=== PATIENT | female | born 1940 | race Caucasian/White ===

== ENCOUNTER 2019-08-06 03:05 | Emergency (ER) | payer MEDICARE, SELFPAY ==
[2019-08-06 03:10] VITALS: BP 149/87; PULSE 80; RESP 18; TEMP 36.3; O2SAT 100
--- NOTE | 2019-08-06 03:23 | ED.SKABFB ---
HPI - Skin/Abscess/Foreign Bdy General Chief complaint: Skin/Abscess/Foreign Body Stated complaint: Poison elena Time Seen by Provider: 08/06/19 03:13 Source: RN notes reviewed History of Present Illness HPI narrative: Patient presents emergency department from home for rash. Patient states that Thursday she went outside and was picking weeds. She said that evening she began to notice a rash that started just above her T-shirt line going up her neck into her bilateral cheeks as well as on her right arm states the rash is pruritic she denies any swelling of the lips or tongue she denies any rash underneath the area of her shirt states she has been using calamine lotion with minimal relief denies any other symptoms Related Data Home Medications Medication Instructions Recorded Confirmed citalopram 20 mg tablet 20 mg PO DAILY 01/14/19 Lactobacillus acidophilus 10 cell PO .Daily cap 02/22/19 billion cell capsule albuterol sulfate 90 mcg/actuation See Rx Instructions .ROUTE .COMPLEX 02/22/19 aerosol inhaler beclomethasone dipropionate 80 See Rx Instructions .ROUTE .COMPLEX 02/22/19 mcg/actuation aerosol inhaler calcium carbonate-vitamin D3 600 1 tablet PO BID 02/22/19 mg (1,500 mg)-800 unit tablet calcium polycarbophil 625 mg tablet 1,250 mg PO BID 02/22/19 citalopram 20 mg tablet 20 mg PO DAILY 02/22/19 fluticasone propionate 50 1 - 2 spray NASAL DAILY PRN ml 02/22/19 mcg/actuation nasal spray,suspension multivit with 1 tablet PO DAILY 02/22/19 bmzirzhk-xqbj-AQ-lutein 8 mg iron-400 mcg-300 mcg tablet Allergies Allergy/AdvReac Type Severity Reaction Status Date / Time propoxyphene [From Darvon] Allergy Severe Swelling Verified 08/06/19 03:14 of Lip/Tongue/Throat Review of Systems Review of Systems: Narrative: Gen.: Denies fevers or chills Eyes: Denies eye pain or visual change ENT: Denies congestion denies swelling of lips or tongue Respiratory: Denies shortness of breath or cough CV: Denies chest pain GI: Denies abdominal pain Musculoskeletal: Denies back pain or joint Neuro: Denies headache Skin: See HPI Except as documented, all other systems reviewed and negative [facility] Past Medical History Medical History (Updated 08/06/19 @ 03:26 by Shaq Santos DO) Asthma Social History Social History Smoking status: Never smoker Smoking end date: 03/09/87 Alcohol intake: never Gender identity (if verbalized by the patient): Female Exam Narrative: Exam Narrative: APPEARANCE: No acute distress, nontoxic, resting in bed EYES: EOMI HEENT: Normocephalic, atraumatic, OMM no swelling of the lips or tongue RESPIRATORY: No respiratory distress MUSCULOSKELETAl: Moves all extremities. No clubbing, cyanosis or edema. NEURO: Awake and alert. Following commands, speech normal, no focal deficits SKIN:: Warm, dry. Erythematous rash with some small vesicular lesions over the bilateral cheeks and neck down to the shirt line no rash under the shirt line and small area on the right wrist consistent with poison elena PSYCHIATRIC: Normal affect/mood, Course Course Emergency Course: Discussed with patient results of workup and diagnosis. Discussed need for follow-up with primary care, proper use of medication, and reasons to return to the emergency department. Patient understands and agrees to current treatment plan Vital Signs Vital signs: Vital Signs Temperature 97.4 F L 08/06/19 03:10 Pulse Rate 80 08/06/19 03:10 Respiratory Rate 18 08/06/19 03:10 Blood Pressure 149/87 H 08/06/19 03:10 Pulse Oximetry 100 08/06/19 03:10 Temperature 97.4 F L 08/06/19 03:10 Pulse Rate 80 08/06/19 03:10 Respiratory Rate 18 08/06/19 03:10 Blood Pressure 149/87 H 08/06/19 03:10 Pulse Oximetry 100 08/06/19 03:10 Discharge Plan Discharge Clinical Impression: Contact dermatitis due to poison elena Kobi
[2019-08-06] MEDS: predniSONE 20 MG TABLET 60 MG PO (03:28)
[2019-08-06 03:30] VITALS: BP 137/79; PULSE 80; RESP 19; TEMP 36.8; O2SAT 100
== END 2019-08-06 03:36 | disposition home or self-care (01) ==
LOC: ANHED 03:31
PROVIDERS: Emergency Provider Emergency Medicine; PCP Emergency Medicine
DX: L23.7 Allergic contact dermatitis due to plants, except food (principal); J45.909 Unspecified asthma, uncomplicated
CPT/HCPCS: 99283; J7512

== ENCOUNTER 2019-08-08 10:16 | Emergency (ER) | payer MEDICARE, SELFPAY ==
[2019-08-08 10:24] VITALS: BP 132/80; PULSE 93; RESP 6; TEMP 36.9; O2SAT 96
[2019-08-08] MEDS: FAMOTIDINE 20 MG/2 ML VIAL IV PUSH (11:31)
[2019-08-08] MEDS: SODIUM CHLORIDE 0.9% IV 1,000 ML 999 ML IV CONT (11:31)
--- NOTE | 2019-08-08 13:10 | ED.ALLEREA ---
HPI - Allergic Reaction General Chief complaint: Allergic Reaction Stated complaint: Poison Marii Time Seen by Provider: 08/08/19 11:08 Source: patient Mode of arrival: ambulatory Limitations: no limitations History of Present Illness HPI narrative: Patient is a 79-year-old female who presents with rash to the face extremities and neck after working in the yard consistent with Camille dermatitis patient was seen in the emergency department was given a Medrol dose pack and sent home and notes that she has had no improvement patient notes rash to the face neck and arms as noted with burning and itching. Denies similar occurrence in the past fever chills or other complaints and presents in no distress per private vehicle Related Data Home Medications Medication Instructions Recorded Confirmed citalopram 20 mg tablet 20 mg PO DAILY 01/14/19 Lactobacillus acidophilus 10 cell PO .Daily cap 02/22/19 billion cell capsule albuterol sulfate 90 mcg/actuation See Rx Instructions .ROUTE .COMPLEX 02/22/19 aerosol inhaler beclomethasone dipropionate 80 See Rx Instructions .ROUTE .COMPLEX 02/22/19 mcg/actuation aerosol inhaler calcium carbonate-vitamin D3 600 1 tablet PO BID 02/22/19 mg (1,500 mg)-800 unit tablet calcium polycarbophil 625 mg tablet 1,250 mg PO BID 02/22/19 citalopram 20 mg tablet 20 mg PO DAILY 02/22/19 fluticasone propionate 50 1 - 2 spray NASAL DAILY PRN ml 02/22/19 mcg/actuation nasal spray,suspension multivit with 1 tablet PO DAILY 02/22/19 dlwpiwwn-jtkk-NG-lutein 8 mg iron-400 mcg-300 mcg tablet Allergies Allergy/AdvReac Type Severity Reaction Status Date / Time propoxyphene [From Darvon] Allergy Severe Swelling Verified 08/06/19 03:14 of Lip/Tongue/Throat Review of Systems Review of Systems: All systems reviewed & are unremarkable except as noted in HPI and below PMFSH Past Medical History Medical History Asthma Family History Family History Father Family history of transient ischemic attacks Patient's father is Cerebrovascular accident, Onset Age: 77 Sibling Family history of chronic obstructive pulmonary disease Family history of lung cancer Patient's brother is Mother Family history of transient ischemic attacks, Onset Age: 91 Other Family history of schizophrenia Social History Social History Smoking status: Never smoker Smoking end date: 03/09/87 Alcohol intake: never Gender identity (if verbalized by the patient): Female Exam Narrative: Exam Narrative: GENERAL: Well-appearing, well-nourished, and in no acute distress. HEAD: Normocephalic, atraumatic. EYES: PERRLA and EOMI. ENT: Nares clear, no rhinorrhea or epistaxis. Mucous membranes moist. NECK: Supple. No adenopathy or masses. CHEST: Clear to auscultation. No respiratory distress. No wheezes rales or rhonchi HEART: Regular rate and rhythm. No murmur heard. EXTREMITIES: Normal range of motion. No edema. SKIN: Warm, dry, patient with rash of the face without is splotchy erythematous some of which are weeping of the face neck and extremities consistent with Rhus dermatitis NEURO: No focal deficits. Alert and oriented x3. PSYCH: Normal mood and affect. Course Course Emergency Course: Patient in the room aware of case findings treatment plan and diagnosis Vital Signs Vital signs: Vital Signs Temperature 98.4 F 08/08/19 10:24 Pulse Rate 93 08/08/19 10:24 Respiratory Rate 6 L 08/08/19 10:24 Blood Pressure 132/80 08/08/19 10:24 Pulse Oximetry 96 08/08/19 10:24 Temperature 98.4 F 08/08/19 10:24 Pulse Rate 93 08/08/19 10:24 Respiratory Rate 6 L 08/08/19 10:24 Blood Pressure 132/80 08/08/19 10:24 Pulse Oximetry 96 08/08/19 10
[2019-08-08 13:30] VITALS: BP 100/80; PULSE 72; RESP 16; O2SAT 98
== END 2019-08-08 13:35 | disposition home or self-care (01) ==
PROVIDERS: Emergency Provider Emergency Medicine; PCP Emergency Medicine
DX: L23.7 Allergic contact dermatitis due to plants, except food (principal); J45.909 Unspecified asthma, uncomplicated
CPT/HCPCS: 96361; 96374; 96375; 99284; J1100; J1200; J7030

== ENCOUNTER 2019-08-15 23:58 | Emergency (ER) | payer MEDICARE, SELFPAY ==
[2019-08-16 00:04] VITALS: BP 147/73; PULSE 92; RESP 18; TEMP 36.6; O2SAT 99
--- NOTE | 2019-08-16 00:50 | ED.SKABFB ---
HPI - Skin/Abscess/Foreign Bdy General Chief complaint: Skin/Abscess/Foreign Body Stated complaint: POISON CHANO Time Seen by Provider: 08/16/19 00:21 History of Present Illness HPI narrative: Patient is an 79-year-old female who presents the ER with concerns of rash. Patient reports 2 weeks ago she is exposed poison chano and has been having itchy red rash over since. Involves her face, bilateral arms, left abdominal/flank region. Pruritic and keeps her up at night. She is on her third dose of prednisone that was prescribed by an banking officer just a couple days ago. She has been trying calamine lotion as well as other lotions without relief of discomfort. She takes Claritin daily. Related Data Home Medications Medication Instructions Recorded Confirmed citalopram 20 mg tablet 20 mg PO DAILY 01/14/19 Lactobacillus acidophilus 10 cell PO .Daily cap 02/22/19 billion cell capsule albuterol sulfate 90 mcg/actuation See Rx Instructions .ROUTE .COMPLEX 02/22/19 aerosol inhaler beclomethasone dipropionate 80 See Rx Instructions .ROUTE .COMPLEX 02/22/19 mcg/actuation aerosol inhaler calcium carbonate-vitamin D3 600 1 tablet PO BID 02/22/19 mg (1,500 mg)-800 unit tablet calcium polycarbophil 625 mg tablet 1,250 mg PO BID 02/22/19 citalopram 20 mg tablet 20 mg PO DAILY 02/22/19 fluticasone propionate 50 1 - 2 spray NASAL DAILY PRN ml 02/22/19 mcg/actuation nasal spray,suspension multivit with 1 tablet PO DAILY 02/22/19 xhsvxqpz-cyfo-LV-lutein 8 mg iron-400 mcg-300 mcg tablet Allergies Allergy/AdvReac Type Severity Reaction Status Date / Time propoxyphene [From Darvon] Allergy Severe Swelling Verified 08/15/19 23:59 of Lip/Tongue/Throat Review of Systems Review of Systems: All systems reviewed & are unremarkable except as noted in HPI and below Constitutional: Constitutional: Denies chills, Denies fever(s) and Denies weakness ENT: Denies nasal congestion and Denies sore throat Integumentary/Breasts: Skin/Breast: Reports pruritus, Reports erythema and Reports rash PMFSH Past Medical History Medical History (Updated 08/16/19 @ 00:55 by Rick Salmon MD) Asthma Surgical History Surgical History (Updated 08/16/19 @ 00:52 by Rcik Salmon MD) History of cholecystectomy History of tubal ligation Social History Social History Smoking status: Never smoker Smoking end date: 03/09/87 Alcohol intake: never Gender identity (if verbalized by the patient): Female Exam Narrative: Exam Narrative: GENERAL: Well-appearing, well-nourished, and in no acute distress. HEAD: Normocephalic, atraumatic. CHEST: Clear to auscultation. No respiratory distress. HEART: Regular rate and rhythm. Normal peripheral pulses. EXTREMITIES: Normal range of motion. No edema. SKIN: Warm, dry. Erythematous/blanching rash to face, bilateral forearms, LLQ extending towards back. No pustules/vesicles. Not c/w shingles. NEURO: Alert and oriented x3. Course Course Emergency Course: will try atarax at home for itching. Vital Signs Vital signs: Vital Signs Temperature 97.8 F 08/16/19 00:04 Pulse Rate 92 08/16/19 00:04 Respiratory Rate 18 08/16/19 00:04 Blood Pressure 147/73 H 08/16/19 00:04 Pulse Oximetry 99 08/16/19 00:04 Temperature 97.8 F 08/16/19 00:04 Pulse Rate 92 08/16/19 00:04 Respiratory Rate 18 08/16/19 00:04 Blood Pressure 147/73 H 08/16/19 00:04 Pulse Oximetry 99 08/16/19 00:04 Discharge Plan Discharge Clinical Impression: Poison chano dermatitis Patient Disposition: Home, Self-Care Condition: Stable Instructions: Poison Chano (ED) Additional Instructions: Return to the ER if you have chest pain or shortness of breath, you cannot keep down food or water, you have fever over 100.4 ?F, you have additional concerns. Prescriptions: New hydroxyzine HCl 25 mg tablet
[2019-08-16] MEDS: hydrOXYzine HCL 25 MG TABLET PO (01:00)
== END 2019-08-16 01:08 | disposition home or self-care (01) ==
PROVIDERS: Emergency Provider Emergency Medicine; PCP Emergency Medicine
DX: L23.7 Allergic contact dermatitis due to plants, except food (principal); J45.909 Unspecified asthma, uncomplicated
CPT/HCPCS: 99283; A4565; A9270

== ENCOUNTER 2019-08-30 07:28 | Outpatient (CLI) | payer MEDICARE, SELFPAY ==
[2019-08-30 08:12] LABS: Alanine Aminotransferase 24 U/L (4-35); Albumin Level 3.7 g/dL (3.5-5.1); Alkaline Phosphatase 76 U/L (38-126); Aspartate Amino Transferase 28 U/L (14-36); Bilirubin,Total 0.6 mg/dL (0.2-1.3); Blood Urea Nitrogen 26 mg/dL (7-17); Calcium 9.5 mg/dL (8.4-10.2); Carbon Dioxide 30 mmol/L (22-30); Chloride 102 mmol/L (98-107); Estimated Glomerular Filt Rate 60; Glucose 91 mg/dL (65-105); Potassium 4.3 mmol/L (3.4-5.0); Sodium 137 mmol/L (137-145)
== END 2019-08-30 07:29 | disposition home or self-care (01) ==
PROVIDERS: PCP Emergency Medicine; Visit Provider Emergency Medicine
DX: E78.5 Hyperlipidemia, unspecified (principal)
CPT/HCPCS: 36415; 80053

== ENCOUNTER 2019-11-24 08:00 | Outpatient (RCR) | payer MEDICARE, SELFPAY ==
--- NOTE | 2019-10-04 10:57 | PTOPEVAL ---
INITIAL PHYSICAL THERAPY EVALUATION and PLAN OF CARE Thank you for referring Lisa Tovar to [facility]. She will be seen in PT 2x/wk x 4 wks. Please review, sign, date and return this plan of care ANA. I agree with and certify that the following plan of care is medically necessary. Referring Physician Date Admitting Provider: Attending Provider: Evangelista Carlson MD Referring Provider: *PT Outpatient Evaluation Start: 10/04/19 09:40 Freq: Status: Active Protocol: Document 10/04/19 09:35 BISI (Rec: 10/04/19 10:57 BISI [id number]) Therapy Assessment Status Assessment Status Assessment Status Evaluation Outpatient Past Medical History Past Medical History Source of Past Medical History Patient,Recalled from Previous Visit, Confirmed with Patient /Family Neurological History Hx Neurological Disorders No Significant History Cardiovascular History Hx Hypertension Yes Respiratory History Hx Asthma Yes Gastrointestinal History Hx Cholecystectomy Yes Hx Gastroesophageal Reflux Disease Yes Genitourinary History Hx Genitourinary Disorders No Significant History Musculoskeletal History Hx Back Pain Yes Endocrine History Hx Endocrine Disorders No Significant History Reproductive History Hx Post Menopausal Yes Hx Tubal Ligation Yes Psychosocial History Hx Depression Yes Evaluation Information Problem Diagnosis R leg pain, L leg pain Onset 1-2 month - more severe pain Additional Evaluation Detail Pt reports only having R thigh pain Was seen in PT ~ 1 yr for about the same thing - was helpful Subjective Information She thinks that she lifted Query Text:As Reported By Patient/ something heavy which caused Family the discomfort. Did have a shooting pain R side of back. Does okay with sitting, but some limitation with standing and more so with walking. Does have a stationary bike and treadmill at home. Morning - increased difficulty getting R leg out of bed, then has to hold onto R thigh to walk over and get the light . Pain is sporatic as the day goes on. Doesn't notice any change with bath - unable to
--- NOTE | 2019-10-27 12:44 | PTOPEVAL ---
PHYSICAL THERAPY RE-EVALUATION and UPDATED PLAN OF CARE Thank you for referring Lisa Tovar to [facility].? Lisa has met goals set in regards to back/pelvis/SIJ dysfunction but she continues to have R thigh discomfort and soft tissue tension. She will continue to be seen for skilled PT 2x/week for 4 weeks. Please review, sign, date and return this plan of care ANA. I agree with and certify that the following plan of care is medically necessary. Referring Physician Date Admitting Provider: Attending Provider: Evangelista Carlson MD Referring Provider: *PT Outpatient Evaluation Start: 10/04/19 09:40 Freq: Status: Active Protocol: Document 10/27/19 10:50 BISI (Rec: 10/27/19 12:01 BISI [id number]) Therapy Assessment Status Assessment Status Assessment Status Re-evaluation Evaluation Information Problem Subjective Information Lisa reports that every Query Text:As Reported By Patient/ morning she has severe R thigh Family pain which will last for about 20 minutes. It goes away once she starts moving around - getting dressed, making her bed. Needs to get out of bed a certain way otherwise increase in pain. 50% improvement with standing ability Pain Assessment Timing of Pain Assessment Timing of Pain Assessment Assessment Pain Scale Pain Scale Used Numeric (1 - 10) Self Report Pain Assessment Right Anterior Thigh(s) Reported Pain Level 2 Pain Description Sharp,Soreness Lowest Pain Intensity 0 Greatest Pain Intensity 10 Pain Score Pain Score 2: Self Report Cervical and Lumbar ROM Lumbar ROM Lumbar Flexion (0-90) 35 Query Text:Active in Degrees Lumbar Extension (0-40) 15 Query Text:Active in Degrees Lumbar Lateral Flexion Right (0-40) 10 Query Text:Active in Degrees Lumbar Lateral Flexion Left (0-40) 10 Query Text:Active in Degrees Lumbar Comments trunk is flexed ~ 10 deg - able to come up to neutral with trunk extension - but the able to go into trunk extension Palpation Assessment Palpation Palpation Pevis/sacrum level in standing - equal SIJ mobility in standing - lumbar spine in flattened - decrease with lumbar curve R thigh - marked increase in
--- NOTE | 2019-11-24 11:41 | PTOPEVAL ---
PHYSICAL THERAPY DISCHARGE SUMMARY Thank you for referring Lisa Tovar to [facility].? Lisa has met goals set in PT and is ready for discharge to [facility]. I am in agreement Lisa's discharge from physical therapy. Referring Physician Date Admitting Provider: Attending Provider: Evangelista Carlson MD Referring Provider: *PT Outpatient Evaluation Start: 10/04/19 09:40 Freq: Status: Active Protocol: Document 11/24/19 08:08 BISI (Rec: 11/24/19 09:03 BISI [id number]) Therapy Assessment Status Assessment Status Assessment Status Discharge Evaluation Information Problem Subjective Information Lisa reports the thigh Query Text:As Reported By Patient/ pain in the morning with Family initial wt bearing isn't always there. If it is present - doesn't last long - when she walks about 10 ft - it goes away. Getting up and down from the tub is better - no difficulty now. Pain Assessment Timing of Pain Assessment Timing of Pain Assessment Assessment Pain Scale Pain Scale Used Numeric (1 - 10) Self Report Pain Assessment Right Anterior Thigh(s) Reported Pain Level 0 Lowest Pain Intensity 0 Greatest Pain Intensity 5 Pain Score Pain Score 0: Self Report Cervical and Lumbar ROM Lumbar ROM Lumbar Flexion (0-90) 35 Query Text:Active in Degrees Lumbar Extension (0-40) 15 Query Text:Active in Degrees Lumbar Lateral Flexion Right (0-40) 15 Query Text:Active in Degrees Lumbar Lateral Flexion Left (0-40) 15 Query Text:Active in Degrees Lumbar Comments improved neutral position of trunk in standing - less trunk flexion Palpation Assessment Palpation Palpation marked decrease in distal thigh soft tissue tension - no discomfort elicited. General Exercise General Exercises Exercise Location core stabilization, LE Exercise Description reviewd HEP sheets - to Query Text:Record Sets, Reps, continue to watch lifting Resistance, and Position techniques. To continue with wall slides - discussed how to modify to decrease back discomfort, clams and hip abduction SLR, and hip flexor stretching. 2x/wk to continue with theraband hip abduction, flexion,
== END 2019-11-24 13:25 | disposition home or self-care (01) ==
LOC: ANHPT 08:00
PROVIDERS: PCP Emergency Medicine; Visit Provider Emergency Medicine
DX: M79.604 Pain in right leg (principal); M79.605 Pain in left leg
CPT/HCPCS: 97014; 97110; 97140; 97161; 97530; G0283

== ENCOUNTER 2020-01-23 12:54 | Outpatient (CLI) | payer MEDICARE, SELFPAY | END 2020-01-23 12:55 | disposition home or self-care (01) | LOC: ANHAUDASC 12:55 | PROVIDERS: PCP Emergency Medicine; Visit Provider Otolaryngology | DX: H91.90 Unspecified hearing loss, unspecified ear (principal) | CPT/HCPCS: 92557; 92567 ==

== ENCOUNTER 2020-03-20 06:55 | Outpatient (CLI) | payer MEDICARE, SELFPAY ==
[2020-03-20 07:38] LABS: Alanine Aminotransferase 20 U/L (4-35); Alkaline Phosphatase 61 U/L (38-126); Anion Gap 3 mmol/L (8-16); Aspartate Amino Transferase 29 U/L (14-36); Bilirubin,Total 0.7 mg/dL (0.2-1.3); Blood Urea Nitrogen 20 mg/dL (7-17); Calcium 9.3 mg/dL (8.4-10.2); Carbon Dioxide 35 mmol/L (22-30); Chloride 99 mmol/L (98-107); Cholesterol 234 mg/dL (0-200); Estimated Glomerular Filt Rate 60; Glucose 96 mg/dL (65-105); HDL Direct 79 mg/dL; Potassium 4.3 mmol/L (3.4-5.0); Sodium 137 mmol/L (137-145); Triglycerides 109 mg/dL (<150)
[2020-03-20 07:49] LABS: LDL Cholesterol Direct 115 mg/dL
== END 2020-03-20 06:56 | disposition home or self-care (01) ==
PROVIDERS: PCP Emergency Medicine; Visit Provider Emergency Medicine
DX: E78.2 Mixed hyperlipidemia (principal)
CPT/HCPCS: 36415; 80053; 80061

== ENCOUNTER 2020-06-19 06:53 | Outpatient (CLI) | payer MEDICARE, SELFPAY ==
[2020-06-19 08:02] LABS: Alanine Aminotransferase 22 U/L (4-35); Albumin Level 4.1 g/dL (3.5-5.1); Alkaline Phosphatase 57 U/L (38-126); Anion Gap 2 mmol/L (8-16); Aspartate Amino Transferase 34 U/L (14-36); Bilirubin,Total 0.9 mg/dL (0.2-1.3); Blood Urea Nitrogen 20 mg/dL (7-17); Calcium 9.4 mg/dL (8.4-10.2); Carbon Dioxide 32 mmol/L (22-30); Chloride 100 mmol/L (98-107); Estimated Glomerular Filt Rate 60; Glucose 89 mg/dL (65-105); Potassium 4.3 mmol/L (3.4-5.0); Sodium 134 mmol/L (137-145)
== END 2020-06-19 06:54 | disposition home or self-care (01) ==
PROVIDERS: PCP Emergency Medicine; Visit Provider Emergency Medicine
DX: I10 Essential (primary) hypertension (principal)
CPT/HCPCS: 36415; 80053

== ENCOUNTER 2020-08-01 09:00 | Outpatient (RCR) | payer MEDICARE, SELFPAY ==
--- NOTE | 2020-07-10 11:18 | PTOPEVAL ---
PHYSICAL THERAPY EVALUATION AND PLAN OF CARE 07-10-20 Thank you for referring Lisa Tovar to [facility], for the diagnosis of gait imbalance. Mrs. Tovar is scheduled to be seen for therapy? 2 x/week for 3 weeks. Please review, sign, date and return this plan of care ANA. I agree with and certify that the following plan of care is medically necessary. Referring Physician Date Attending Provider: Evangelista Carlson MD PT Outpatient Evaluation Document 07/10/20 10:35 TEE (Rec: 07/10/20 11:17 TEE [id number]) Past Medical History Neurological History Hx Other Neurological Disorders Yes: tremors B hands, increase with activity-have referral for neurologist Cardiovascular History Hx Hypercholesterolemia Yes: meds Hx Hypertension Yes: meds Respiratory History Hx Asthma Yes: med and inhaler Gastrointestinal History Hx Cholecystectomy Yes Hx Gastroesophageal Reflux Disease Yes Genitourinary History Hx Genitourinary Disorders No Significant History Musculoskeletal History Hx Back Pain Yes Endocrine History Hx Endocrine Disorders No Significant History HEENT History Hx Other HEENT Disorders Yes: glasses; slight hearing loss- no hearing aide Reproductive History Hx Post Menopausal Yes Hx Tubal Ligation Yes Psychosocial History Hx Anxiety Yes: meds Hx Depression Yes: meds Other History Hx Other Medical Conditions Yes: have had COVID vaccine Evaluation Information Problem Diagnosis gait and balance issues Onset Feb 2020 Subjective Information gradual increase in problems Query Text:As Reported By Patient/ with walking and weakness; no Family falls; not really doing any exercises at home, except riding stationary bike 5-10 mins/day; Prior Level of Function Activity Level (Last 3 Months) Cooking Yes Cleaning No Laundry Yes Shopping Yes Driving Yes Home Setting Home Type House,Multiple Levels Living Situation Alone Support Available 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
--- NOTE | 2020-08-01 09:36 | PTOPEVAL ---
PHYSICAL THERAPY DISCHARGE 08-01-20 Refer to the clinical summary below for her status today, compared to the initial evaluation. Lisa improved in all areas. The goals were partially achieved. Thank you for referring Lisa Tovar to [facility].? Please review, sign, date and return this Discharge ANA. I agree with and certify that the following plan of care is medically necessary. Referring Physician Date Attending Provider: Evangelista Carlson MD Document 08/01/20 08:59 TEE (Rec: 08/01/20 09:35 TEE [id number]) Assessment Status Discharge Subjective Information Lisa reports: saw Query Text:As Reported By Patient/ neurologist and have a new med Family for tremors; doing leg exercises at home, once/day 10 times; getting into bath tub is about the same, getting down into the tub-- have not got a tub rail yet; daughter is working on getting a grab bar for her to stand and shower; only go to basement few times, strenuous and hard to do; Pain Scale Pain Scale Used Numeric (1 - 10) Self Report Pain Assessment Right Thigh(s) Reported Pain Level 0 Pain Description Aching Pain Frequency Chronic,Intermittent Other Pain Description anterior thigh Lowest Pain Intensity 0 Greatest Pain Intensity 8 Other Pain Aggravating Factors when first wake up in the morning Pain Behaviors Anxious Pain Score Pain Score 0: Self Report Interventions Used Interventions Used By Clinicians Education Other Alleviating Interventions walk around when first wake up ; discussed using heating pad over thigh Lower Extremity Muscle Strength Testing General Lower Extremity Strength Gross Lower Extremity Strength functional strength testing: single leg standing R 4/ L 7 seconds standing hip exercises with 1 UE hold x 20 reps Transfer Assessment Floor Transfer Assessment Sit to Floor Transfer Ability Independent Floor to Sit Transfer Ability Independent Cues Needed for Floor Transfer None Floor Transfer Comments use of UE's on mat to do transfer; pt reports she gets on the floor to play with her great grand children; Balance Assessment
== END 2020-08-01 11:01 | disposition home or self-care (01) ==
LOC: ANHPT 09:00
PROVIDERS: PCP Emergency Medicine; Visit Provider Emergency Medicine
DX: R26.89 Other abnormalities of gait and mobility (principal); R25.1 Tremor, unspecified
CPT/HCPCS: 97110; 97161

== ENCOUNTER 2020-10-30 06:53 | Outpatient (CLI) | payer MEDICARE, SELFPAY ==
[2020-10-30 08:50] LABS: Alanine Aminotransferase 16 U/L (4-35); Alkaline Phosphatase 63 U/L (38-126); Anion Gap 5 mmol/L (8-16); Aspartate Amino Transferase 25 U/L (14-36); Bilirubin,Total 0.8 mg/dL (0.2-1.3); Blood Urea Nitrogen 22 mg/dL (7-17); Calcium 9.4 mg/dL (8.4-10.2); Carbon Dioxide 28 mmol/L (22-30); Chloride 101 mmol/L (98-107); Cholesterol 225 mg/dL (0-200); Estimated Glomerular Filt Rate > 60; Glucose 86 mg/dL (65-110); HDL Direct 67 mg/dL; Sodium 134 mmol/L (137-145); Triglycerides 102 mg/dL (<150)
[2020-10-30 09:03] LABS: LDL Cholesterol Direct 105 mg/dL
== END 2020-10-30 06:54 | disposition home or self-care (01) ==
LOC: ANHLAB 06:56
PROVIDERS: PCP Emergency Medicine; Visit Provider Emergency Medicine
DX: I10 Essential (primary) hypertension (principal); E78.2 Mixed hyperlipidemia
CPT/HCPCS: 36415; 80053; 80061

== ENCOUNTER 2021-04-16 06:44 | Outpatient (CLI) | payer MEDICARE, SELFPAY ==
[2021-04-16 08:16] LABS: Alanine Aminotransferase 19 U/L (4-35); Albumin Level 3.9 g/dL (3.5-5.1); Alkaline Phosphatase 94 U/L (38-126); Anion Gap 2 mmol/L (8-16); Aspartate Amino Transferase 28 U/L (14-36); Bilirubin,Total 0.6 mg/dL (0.2-1.3); Blood Urea Nitrogen 22 mg/dL (7-17); Carbon Dioxide 30 mmol/L (22-30); Chloride 102 mmol/L (98-107); Cholesterol 239 mg/dL (0-200); Estimated Glomerular Filt Rate 47; Glucose 92 mg/dL (65-110); HDL Direct 57 mg/dL; Potassium 4.2 mmol/L (3.4-5.0); Sodium 134 mmol/L (137-145); Triglycerides 140 mg/dL (<150)
[2021-04-16 08:27] LABS: LDL Cholesterol Direct 120 mg/dL
== END 2021-04-16 06:45 | disposition home or self-care (01) ==
PROVIDERS: PCP Emergency Medicine; Visit Provider Emergency Medicine
DX: I10 Essential (primary) hypertension (principal); Z13.220 Encounter for screening for lipoid disorders
CPT/HCPCS: 36415; 80053; 80061

== ENCOUNTER 2021-06-09 21:45 | Emergency (ER) | payer MEDICARE, SELFPAY ==
--- NOTE | ~2021-06-09 | CT_ITS ---
EXAMINATION: CT brain wo con DATE: 06/09/2021 22:39 INDICATION: Frontal headache. TECHNIQUE: Computed tomography (CT) of the head was performed without intravenous contrast. The mA wa s adjusted according to patient size. Iterative reconstruction technique was employed. The dose-lengt h product was 605.33 mGy-cm. COMPARISON: None FINDINGS: There is no intracranial hemorrhage, acute infarction, or abnormal intracranial mass lesion . There is a prominent perivascular space in the right basal ganglia. There are scattered areas of lo w attenuation in the cerebral white matter, which is within normal limits for the patient's age. The ventricles are normal in size. There are likely changes of ocular lens replacement surgeries. There i s mild mucosal thickening in the ethmoid sinuses. The mastoid air cells are normal. IMPRESSION: 1. Normal aging brain. Reviewed, dictated and finalized at location A. IMPRESSION: 1. Normal aging brain.
[2021-06-09 22:11] VITALS: PULSE 90; RESP 16; TEMP 37.6; O2SAT 97
--- NOTE | 2021-06-09 22:19 | ED.GENADULT ---
HPI - General Adult General Chief complaint: Headache Stated complaint: Head pain, not a headache. Time Seen by Provider: 06/09/21 21:49 History of Present Illness HPI narrative: Patient is an 81-year-old female who presents ER with frontal headache. Ongoing over the last month. Began earlier in the month when she was reading and leaning forward. She reports she only has a headache when she leans forwards. Its become more intense over the last week. Denies sinus congestion or sore throat or cough. No fevers or chills or sweats. No trauma or fall. No alleviating factors other than just laying her head back. Denies dizziness. No focal weakness or numbness in arm or leg. No change in vision. Related Data Home Medications Medication Instructions Recorded Confirmed citalopram 20 mg tablet 20 mg PO DAILY 01/14/19 Lactobacillus acidophilus 10 cell PO .Daily cap 02/22/19 05/13/21 billion cell capsule albuterol sulfate 90 mcg/actuation See Rx Instructions .ROUTE .COMPLEX 02/22/19 05/13/21 aerosol inhaler beclomethasone dipropionate 80 See Rx Instructions .ROUTE .COMPLEX 02/22/19 05/13/21 mcg/actuation aerosol inhaler calcium carbonate 600 mg-vitamin 1 tablet PO BID 02/22/19 05/13/21 D3 20 mcg (800 unit) tablet calcium polycarbophil 625 mg tablet 1,250 mg PO BID 02/22/19 05/13/21 fluticasone propionate 50 1 - 2 spray NASAL DAILY PRN ml 02/22/19 05/13/21 mcg/actuation nasal spray,suspension multivit with 1 tablet PO DAILY 02/22/19 05/13/21 eswozidj-jszg-CX-lutein 8 mg iron-400 mcg-300 mcg tablet Allergies Allergy/AdvReac Type Severity Reaction Status Date / Time propoxyphene [From Darvon] Allergy Severe Swelling Verified 05/13/21 14:06 of Lip/Tongue/Throat Review of Systems Review of Systems: All systems reviewed & are unremarkable except as noted in HPI and below Constitutional: Constitutional: Denies chills, Denies fever(s) and Denies weakness Eyes: Eyes: Denies change in vision and Denies photophobia ENT: Denies dizziness, Denies nasal congestion and Denies sore throat Cardiovascular: Cardiovascular: Denies chest pain, Denies rapid heart rate and Denies radiating jaw, neck or arm pain Gastrointestinal: Gastrointestinal: Denies abdominal pain, Denies nausea and Denies vomiting Neurologic: Denies syncope, Reports headache(s), Denies focal weakness and Denies numbness PMFSH Past Medical History Medical History Acute left-sided low back pain without sciatica Acute non-recurrent sinusitis Acute pain of left hip Asthma Body mass index [BMI] 25.0-25.9, adult (10/27/16) Diarrhea Fatigue Frequent UTI GERD without esophagitis Memory loss Mild persistent asthma without complication Moderate single current episode of major depressive disorder Presbycusis, bilateral Pure hypercholesterolemia Unsteady gait Surgical History Surgical History History of cholecystectomy History of tubal ligation Family History Family History Father Family history of transient ischemic attacks Patient's father is Cerebrovascular accident, Onset Age: 77 Sibling Family history of chronic obstructive pulmonary disease Family history of lung cancer Patient's brother is Mother Family history of transient ischemic attacks, Onset Age: 91 Other Family history of schizophrenia Social History Social History Smoking status: Former smoker Smoking end date: 03/09/87 Alcohol intake: never Gender identity (if verbalized by the patient): Female Exam Narrative: GENERAL: Well-appearing, well-nourished, and in no acute distress. HEAD: Normocephalic, atraumatic. EYES: PERRL and EOMI. CHEST: Clear to auscultation. No respiratory dist
[2021-06-09 23:15] VITALS: BP 142/62; PULSE 68; RESP 16; O2SAT 98
== END 2021-06-09 23:17 | disposition home or self-care (01) ==
PROVIDERS: Emergency Provider Emergency Medicine; PCP Emergency Medicine
DX: R51.9 Headache, unspecified (principal); Z87.440 Personal history of urinary (tract) infections; K21.9 Gastro-esophageal reflux disease without esophagitis; J45.30 Mild persistent asthma, uncomplicated; E78.00 Pure hypercholesterolemia, unspecified; F32.1 Major depressive disorder, single episode, moderate; Z87.891 Personal history of nicotine dependence
CPT/HCPCS: 70450; 99284

== ENCOUNTER 2021-07-16 06:47 | Outpatient (CLI) | payer MEDICARE, SELFPAY ==
[2021-07-16 07:19] LABS: Alanine Aminotransferase 25 U/L (6-35); Albumin Level 3.8 g/dL (3.5-5.1); Alkaline Phosphatase 82 U/L (38-126); Anion Gap 2 mmol/L (8-16); Aspartate Amino Transferase 35 U/L (14-36); Bilirubin,Total 0.8 mg/dL (0.2-1.3); Blood Urea Nitrogen 11 mg/dL (7-17); Carbon Dioxide 30 mmol/L (22-30); Chloride 98 mmol/L (98-107); Estimated Glomerular Filt Rate 53; Glucose 88 mg/dL (65-110); Potassium 4.3 mmol/L (3.4-5.0); Sodium 130 mmol/L (137-145)
== END 2021-07-16 06:48 | disposition home or self-care (01) ==
LOC: ANHLAB 06:50
PROVIDERS: PCP Emergency Medicine; Visit Provider Emergency Medicine
DX: I10 Essential (primary) hypertension (principal)
CPT/HCPCS: 36415; 80053

== ENCOUNTER 2021-07-22 06:41 | Outpatient (CLI) | payer MEDICARE, SELFPAY ==
[2021-07-22 08:43] LABS: Alanine Aminotransferase 23 U/L (6-35); Alkaline Phosphatase 76 U/L (38-126); Anion Gap 4 mmol/L (8-16); Aspartate Amino Transferase 29 U/L (14-36); Bilirubin,Total 0.7 mg/dL (0.2-1.3); Blood Urea Nitrogen 12 mg/dL (7-17); Calcium 9.4 mg/dL (8.4-10.2); Carbon Dioxide 27 mmol/L (22-30); Chloride 99 mmol/L (98-107); Estimated Glomerular Filt Rate 53; Glucose 81 mg/dL (65-110); Potassium 4.2 mmol/L (3.4-5.0); Sodium 130 mmol/L (137-145)
== END 2021-07-22 06:42 | disposition home or self-care (01) ==
LOC: ANHLAB 06:44
PROVIDERS: PCP Emergency Medicine; Visit Provider Emergency Medicine
DX: E87.1 Hypo-osmolality and hyponatremia (principal)
CPT/HCPCS: 36415; 80053

== ENCOUNTER → 2021-07-27 11:07 | Outpatient (CLI) | payer MEDICARE, SELFPAY ==
--- NOTE | ~2021-07-27 | US_ITS ---
EXAMINATION: US retroperitoneal comp DATE: 07/27/2021 11:33 INDICATION: Chronic urinary tract infection. Difficulty voiding. TECHNIQUE: Multiple ultrasound grayscale images of the kidneys were obtained. COMPARISON: None. FINDINGS: The right kidney measures 7.9 x 4.6 x 3.8 cm. The left kidney measures 8.1 x 6.8 x 6.8 cm. The kidney s demonstrate normal echogenicity. 5.7 cm anechoic left renal cyst. There is no hydronephrosis in eit her kidney. No stones identified. Diffuse smooth bladder wall thickening. Calculated prevoid bladder volume of 276 mL and calculated post void bladder volume of 43 mL. IMPRESSION: 1. 5.7 cm left renal cyst. Otherwise normal kidneys with no hydronephrosis. 2. Diffuse mild bladder wall thickening which could be due to chronic urinary retention or cystitis e ither acute or chronic. Calculated postvoid bladder volume of 43 mL. Reviewed, dictated and finalized at location A. IMPRESSION: 1. 5.7 cm left renal cyst. Otherwise normal kidneys with no hydronephrosis. 2. Diffuse mild bladder wall thickening which could be due to chronic urinary r etention or cystitis either acute or chronic. Calculated postvoid bladder volum e of 43 mL.
== END ==
PROVIDERS: PCP Emergency Medicine; Visit Provider Nurse Practitioner Adult Health
DX: N39.0 Urinary tract infection, site not specified (principal); N28.1 Cyst of kidney, acquired
CPT/HCPCS: 76770

== ENCOUNTER 2021-07-30 06:51 | Outpatient (CLI) | payer MEDICARE, SELFPAY ==
[2021-07-30 07:34] LABS: Sodium 130 mmol/L (137-145)
== END 2021-07-30 06:52 | disposition home or self-care (01) ==
PROVIDERS: PCP Emergency Medicine; Visit Provider Emergency Medicine
DX: R79.89 Other specified abnormal findings of blood chemistry (principal)
CPT/HCPCS: 36415; 84295

== ENCOUNTER 2021-08-12 13:45 | Emergency (ER) | payer MEDICARE, SELFPAY ==
--- NOTE | ~2021-08-12 | XR_ITS ---
EXAMINATION: XR chest 2V 08/12/2021 14:31 INDICATION: Shortness of breath and chest pain PROCEDURE: 2 view chest COMPARISON: Comparison to multiple prior studies sequentially, with oldest reviewed study dated 06/04. FINDINGS: The lungs are clear. The cardiomediastinal silhouette is within normal limits. There are no pleural effusions. There is no pneumothorax suspected. IMPRESSION: 1: NO ACUTE CARDIOPULMONARY DISEASE. Reviewed, dictated and finalized at location B.
[2021-08-12 13:49] VITALS: BP 164/67; PULSE 110; RESP 22; TEMP 36.6; O2SAT 98
--- NOTE | 2021-08-12 13:52 | ECG_ITS ---
Measurements Intervals [place] Rate: 106 P: 57 MN: 159 QRS: 258 QRSD: 126 T: 15 QT: 373 QTc: 496 Interpretive Statements SINUS TACHYCARDIA MARKED RIGHT AXIS DEVIATION [QRS AXIS > 100] RIGHT BUNDLE BRANCH BLOCK [120+ ms QRS DURATION, UPRIGHT V1, 40+ ms S IN I/aVL/V4/V5/V6] NO PREVIOUS ECG AVAILABLE FOR COMPARISON Electronically Signed On 08-12-2021 15:39:49 CDT by Scar Boswell MD
[2021-08-12 14:08] LABS: Basophils Absolute Auto 0.1 K/mm3 (0.0-0.1); Basophils Percent Auto 0.7 % (0.2-1.2); Eosinophils Absolute Auto 0.1 K/mm3 (0-0.3); Hematocrit 39.9 % (37.0-47.0); Hemoglobin 13.2 g/dL (12.0-15.0); Immature Granulocyte Absolute 0.07 K/mm3 (0.00-0.031); Lymphocytes Absolute Auto 1.34 K/mm3 (0.9-3.2); Lymphocytes Percent Auto 19.2 % (18.3-44.2); Mean Corpuscular HGB Conc 33.1 g/dl (32-36); Mean Corpuscular Hemoglobin 32.1 pg (26-34); Mean Corpuscular Volume 97.1 fl (80-100); Mean Platelet Volume 9.8 fl (7.4-10.4); Monocytes Absolute Auto 0.6 K/mm3 (0.1-0.6); Neutrophils Absolute Auto 4.8 K/mm3 (1.3-6.7); Neutrophils Percent Auto 69.1 % (45.5-73.1); Platelet Count Result 223 k/mm3 (150-375); Red Blood Count 4.11 M/mm3 (4.2-5.4); Red Cell Distribution Width 14.4 % (11.5-14.5)
[2021-08-12 14:18] LABS: Alanine Aminotransferase 26 U/L (6-35); Albumin Level 4.1 g/dL (3.5-5.1); Alkaline Phosphatase 88 U/L (38-126); Anion Gap 3 mmol/L (8-16); Aspartate Amino Transferase 32 U/L (14-36); Bilirubin,Total 0.8 mg/dL (0.2-1.3); Blood Urea Nitrogen 16 mg/dL (7-17); Calcium 9.1 mg/dL (8.4-10.2); Carbon Dioxide 25 mmol/L (22-30); Chloride 104 mmol/L (98-107); Estimated CRCL calculation 37 ml/min; Estimated Glomerular Filt Rate 60; Glucose 96 mg/dL (65-110); Potassium 4.1 mmol/L (3.4-5.0); Sodium 132 mmol/L (137-145)
[2021-08-12 14:41] VITALS: BP 132/63; PULSE 85; RESP 15; O2SAT 96
[2021-08-12 14:42] VITALS: PULSE 89
--- NOTE | 2021-08-12 15:05 | ED.ASTHMA ---
HPI - Asthma General Chief Complaint: Asthma Stated Complaint: SOB Time Seen by Provider: 08/12/21 14:19 History of Present Illness HPI Narrative: 81 y/o female presents to the ER today for evaluation for left lower chest/rib pain. She feels the pain when she takes a deep breath. Pain started yesterday. She had a cold in June. She has struggled with her asthma symptoms since then. She says that right now her asthma is not too bad. She denies feeling short of breath. She denies having any wheezing or cough or chest congestion. No fever or chills. She says that the pain that she gets feels like a sharp pain and it feels like it is in her rib when she takes a deep breath. Related Data Home Medications Medication Instructions Recorded Confirmed Lactobacillus acidophilus 10 cell PO .Daily 02/22/19 05/13/21 billion cell capsule (Probiotic) albuterol sulfate 90 mcg/actuation See Rx Instructions .Route .COMPLEX 02/22/19 05/13/21 aerosol inhaler (ProAir HFA) beclomethasone dipropionate 80 See Rx Instructions .Route .COMPLEX 02/22/19 05/13/21 mcg/actuation aerosol inhaler calcium carbonate 600 mg-vitamin 1 tablet PO BID 02/22/19 05/13/21 D3 20 mcg (800 unit) tablet (Caltrate with Vitamin D3) calcium polycarbophil 625 mg 1,250 mg PO BID 02/22/19 05/13/21 tablet (FiberCon) fluticasone propionate 50 1 - 2 spray intranasal DAILY PRN 02/22/19 05/13/21 mcg/actuation nasal spray,suspension (Flonase Allergy Relief) multivit with 1 tablet PO DAILY 02/22/19 05/13/21 jhuctmsp-grrl-VL-lutein 8 mg iron-400 mcg-300 mcg tablet (Centrum Silver Women) Allergies Allergy/AdvReac Type Severity Reaction Status Date / Time propoxyphene [From Darvon] Allergy Severe Swelling Verified 06/11/21 14:12 of Lip/Tongue/Throat Review of Systems Review of Systems: CONSTITUTIONAL: Denies fever, chills, or sweats. EYES: Denies visual changes, redness, or discharge. ENT: Denies rhinorrhea, congestion, sore throat, or otalgia. CARDIOVASCULAR: Denies chest pain, palpitations, or edema. RESPIRATORY: Denies cough or dyspnea. pleuritic pain left chest wall GASTROINTESTINAL: Denies abdominal pain, nausea, vomiting, or diarrhea. GENITOURINARY: Denies dysuria or hematuria. SKIN: Denies rash or itching. MUSCULOSKELETAL: Denies back pain, joint pain, or myalgia. NEUROLOGIC: Denies headache, numbness, dizziness, or weakness. PSYCHIATRIC: Denies anxiety or depression. PMFSH Past Medical History Medical History Acute left-sided low back pain without sciatica Acute non-recurrent sinusitis Acute pain of left hip Asthma Body mass index [BMI] 25.0-25.9, adult (10/27/16) Diarrhea Fatigue Frequent UTI GERD without esophagitis Memory loss Mild persistent asthma without complication Moderate single current episode of major depressive disorder Presbycusis, bilateral Pure hypercholesterolemia Unsteady gait Surgical History Surgical History History of cholecystectomy History of tubal ligation Family History Family History Father Family history of transient ischemic attacks Patient's father is Cerebrovascular accident, Onset Age: 77 Sibling Family history of chronic obstructive pulmonary disease Family history of lung cancer Patient's brother is Mother Family history of transient ischemic attacks, Onset Age: 91 Other Family history of schizophrenia Social History Social History Smoking status: Former smoker Smoking end date: 03/09/87 Alcohol intake: never Gender identity (if verbalized by the patient): Female Exam Narrative: GENERAL: Well-appearing, well-nourished, and in no acute distress. HEAD: Normocephalic, atraumatic.
[2021-08-12 15:53] VITALS: BP 114/52; PULSE 95; RESP 17; O2SAT 98
[2021-08-12 15:54] LABS: D Dimer 0.45 ug/mL (<0.48)
[2021-08-12 16:08] LABS: Troponin I < 0.012 ng/mL (0.000-0.034)
[2021-08-12 17:09] VITALS: BP 153/76; PULSE 80; RESP 18; O2SAT 99
== END 2021-08-12 17:11 | disposition home or self-care (01) ==
PROVIDERS: Emergency Medicine; Emergency Provider Nurse Practitioner Family; PCP Emergency Medicine
DX: R07.89 Other chest pain (principal); R94.31 Abnormal electrocardiogram [ECG] [EKG]; J45.909 Unspecified asthma, uncomplicated; K21.9 Gastro-esophageal reflux disease without esophagitis; E78.5 Hyperlipidemia, unspecified
CPT/HCPCS: 36415; 71046; 80053; 84484; 85025; 85380; 93005; 99284

== ENCOUNTER → 2021-10-09 13:11 | Outpatient (CLI) | payer MEDICARE, SELFPAY ==
--- NOTE | ~2021-10-09 | MM_ITS ---
EXAMINATION: MM screening [facility] BI w becka HISTORY: Screening TECHNIQUE: Craniocaudal and mediolateral oblique 3-D tomosynthesis images were obtained and synthetic 2-D images were generated. CAD analysis was submitted and interpreted. COMPARISON: Comparison to multiple prior studies sequentially, with oldest reviewed study dated 08/2012. BREAST PARENCHYMAL COMPOSITION: There are scattered areas of fibroglandular density. FINDINGS: There is no evidence of suspicious mass, calcification, or architectural distortion to sugg est malignancy in either breast. There has been no suspicious interval change. IMPRESSION: 1. No mammographic evidence of malignancy. 2. Recommend routine screening mammography in one year. BI-RADS Category 1: Negative Reviewed, dictated and finalized at location A.
== END ==
PROVIDERS: PCP Emergency Medicine; Visit Provider Emergency Medicine
DX: Z12.31 Encounter for screening mammogram for malignant neoplasm of breast (principal)
CPT/HCPCS: 77063; 77067

== ENCOUNTER 2021-10-29 06:40 | Outpatient (CLI) | payer MEDICARE, SELFPAY ==
[2021-10-29 07:46] LABS: Alanine Aminotransferase 17 U/L (6-35); Albumin Level 4.1 g/dL (3.5-5.1); Alkaline Phosphatase 87 U/L (38-126); Anion Gap 5 mmol/L (8-16); Aspartate Amino Transferase 29 U/L (14-36); Blood Urea Nitrogen 12 mg/dL (7-17); Carbon Dioxide 29 mmol/L (22-30); Chloride 96 mmol/L (98-107); Cholesterol 263 mg/dL (0-200); Estimated Glomerular Filt Rate 47; Glucose 85 mg/dL (65-110); HDL Direct 74 mg/dL; Potassium 3.9 mmol/L (3.4-5.0); Sodium 130 mmol/L (137-145); Triglycerides 72 mg/dL (<150)
[2021-10-29 07:57] LABS: LDL Cholesterol Direct 130 mg/dL
[2021-11-02 12:12] LABS: Vitamin D 1,25 (OH)2 Total 29 pg/mL (18-72); Vitamin D2 1,25 (OH)2 <8 pg/mL; Vitamin D3 1,25 (OH)2 29 pg/mL
== END 2021-10-29 06:41 | disposition home or self-care (01) ==
PROVIDERS: PCP Emergency Medicine; Visit Provider Emergency Medicine
DX: E78.5 Hyperlipidemia, unspecified (principal); I10 Essential (primary) hypertension; E55.9 Vitamin D deficiency, unspecified
CPT/HCPCS: 36415; 80053; 80061; 82652

== ENCOUNTER 2021-11-01 10:52 | Outpatient (CLI) | payer MEDICARE, SELFPAY ==
[2021-11-01 11:18] LABS: Sodium 132 mmol/L (137-145)
== END 2021-11-01 10:53 | disposition home or self-care (01) ==
PROVIDERS: PCP Emergency Medicine; Visit Provider Emergency Medicine
DX: R79.89 Other specified abnormal findings of blood chemistry (principal)
CPT/HCPCS: 36415; 84295

== ENCOUNTER 2021-12-29 08:18 | Emergency (ER) | payer MEDICARE, SELFPAY ==
--- NOTE | ~2021-12-29 | CT_ITS ---
EXAMINATION: CT abdomen pelvis w con DATE: 12/29/2021 09:52 INDICATION: 2 weeks of constipation TECHNIQUE: Computed tomography (CT) of the abdomen and pelvis was performed with 100 mL Omnipaque-350 intravenous contrast. Automated exposure control and iterative reconstruction technique were employe d. The dose-length product was 338.02 mGy-cm. COMPARISON: None FINDINGS: Multiple bilateral subcentimeter centrilobular groundglass nodules. Heart size is normal. No pericard ial or pleural effusion. Cholecystectomy clips the gallbladder fossa. Liver, spleen, pancreas and keshav ateral adrenal glands are normal. 6.3 cm left renal cyst. Small region of cortical scarring at the up per pole of the left kidney likely sequela of prior infection or infarction. There is mild urothelial thickening at the right renal pelvis. Bladder is normal. Moderate to large amount of stool scattered throughout the colon. 2.9 cm macroscopic fat attenuation intramural lipoma along the ascending colon . There is also mild scattered colonic diverticulosis without adjacent inflammation presenting to sug gest diverticulitis. Small bowel and appendix are normal. Bladder, uterus and bilateral adnexa are un remarkable. No free intraperitoneal gas or fluid. No pathologically enlarged abdominal or pelvic lymp hadenopathy. There is calcified atherosclerosis of the aorta and many of the other arteries. Severe l umbar spondylosis. IMPRESSION: 1. Mild urothelial enhancement at the right renal pelvis which raises some concern for ascending urin giana tract infection and pyelitis. Correlate with urinalysis. 2. Multiple small centrilobular groundglass nodules at the bilateral lung bases most likely represent ing either hypersensitivity pneumonitis or atypical pneumonia including fungal/mycobacterial. 3. Diverticulosis. Reviewed, dictated and finalized at location A. IMPRESSION: 1. Mild urothelial enhancement at the right renal pelvis which raises some conc salo for ascending urinary tract infection and pyelitis. Correlate with urinalys is. 2. Multiple small centrilobular groundglass nodules at the bilateral lung bases most likely representing either hypersensitivity pneumonitis or atypical pneum onia including fungal/mycobacterial. 3. Diverticulosis.
[2021-12-29 08:25] VITALS: BP 135/76; PULSE 100; RESP 14; TEMP 36.7; O2SAT 96
[2021-12-29 09:06] LABS: Basophils Absolute Auto 0.1 K/mm3 (0.0-0.1); Basophils Percent Auto 1.1 % (0.2-1.2); Eosinophils Absolute Auto 0.1 K/mm3 (0-0.3); Eosinophils Percent Auto 1.3 % (0-4.4); Hematocrit 40.1 % (37.0-47.0); Hemoglobin 13.6 g/dL (12.0-15.0); Immature Granulocyte Absolute 0.06 K/mm3 (0.00-0.031); Immature Granulocyte Percent A 1.1 % (0-0.5); Lymphocytes Absolute Auto 1.17 K/mm3 (0.9-3.2); Lymphocytes Percent Auto 22.1 % (18.3-44.2); Mean Corpuscular HGB Conc 33.9 g/dl (32-36); Mean Corpuscular Hemoglobin 32.6 pg (26-34); Mean Corpuscular Volume 96.2 fl (80-100); Monocytes Absolute Auto 0.6 K/mm3 (0.1-0.6); Monocytes Percent Auto 10.8 % (2.6-8.5); Neutrophils Absolute Auto 3.4 K/mm3 (1.3-6.7); Neutrophils Percent Auto 63.6 % (45.5-73.1); Platelet Count Result 180 k/mm3 (150-375); Red Blood Count 4.17 M/mm3 (4.2-5.4); Red Cell Distribution Width 13.2 % (11.5-14.5); White Blood Count 5.3 K/mm3 (4.5-10.0)
--- NOTE | 2021-12-29 09:14 | ED.ABDPAIN ---
HPI - Abdominal Pain General Chief Complaint: Abdominal Pain Stated Complaint: bowel obstruction? no hx. Time Seen by Provider: 12/29/21 08:55 History of Present Illness HPI narrative: Patient is an 81-year-old female here for evaluation of intermittent trouble with stooling for the past 2 weeks. Patient states that she has not had a normal bowel movement for the past 2 weeks, has passed only small amounts of stool, occasionally with blood on the side when she strains. Patient states that she has never had a bowel obstruction, has never been constipated in the past, and is usually quite regular. She has attempted MiraLAX and several enemas and has had small amount of stool come out. She also has been passing a lot of gas. Denies fevers, chills, nausea, vomiting, abdominal pain. She has not had any abdominal surgeries. No new medications. Related Data Home Medications Medication Instructions Recorded Confirmed Lactobacillus acidophilus 10 cell PO .Daily 02/22/19 05/13/21 billion cell capsule (Probiotic) albuterol sulfate 90 mcg/actuation See Rx Instructions .Route .COMPLEX 02/22/19 05/13/21 aerosol inhaler (ProAir HFA) beclomethasone dipropionate 80 See Rx Instructions .Route .COMPLEX 02/22/19 05/13/21 mcg/actuation aerosol inhaler calcium carbonate 600 mg-vitamin 1 tablet PO BID 02/22/19 05/13/21 D3 20 mcg (800 unit) tablet (Caltrate with Vitamin D3) calcium polycarbophil 625 mg 1,250 mg PO BID 02/22/19 05/13/21 tablet (FiberCon) fluticasone propionate 50 1 - 2 spray intranasal DAILY PRN 02/22/19 05/13/21 mcg/actuation nasal spray,suspension (Flonase Allergy Relief) multivit with 1 tablet PO DAILY 02/22/19 05/13/21 tystrnkl-qroe-TV-lutein 8 mg iron-400 mcg-300 mcg tablet (Centrum Silver Women) Allergies Allergy/AdvReac Type Severity Reaction Status Date / Time propoxyphene [From Darvon] Allergy Severe Swelling Verified 12/29/21 09:22 of Lip/Tongue/Throat Review of Systems Review of Systems: Gen.: Denies fevers or chills Eyes: Denies eye pain or visual change ENT: Denies congestion Respiratory: Denies shortness of breath or cough CV: Denies chest pain or palpitations GI: Reports constipation. Denies abdominal pain nausea, emesis or diarrhea denies burning, urgency, frequency or hematuria Musculoskeletal: Denies back pain or muscle pain Neuro: Denies numbness, tingling, weakness or focal weakness Skin: Denies rash Except as documented, all other systems reviewed and negative PMFSH Past Medical History Medical History Acute left-sided low back pain without sciatica Acute non-recurrent sinusitis Acute pain of left hip Asthma Body mass index [BMI] 25.0-25.9, adult (10/27/16) Diarrhea Fatigue Frequent UTI GERD without esophagitis Memory loss Mild persistent asthma without complication Moderate single current episode of major depressive disorder Presbycusis, bilateral Pure hypercholesterolemia Unsteady gait Surgical History Surgical History History of cholecystectomy History of tubal ligation Family History Family History Father Family history of transient ischemic attacks Patient's father is Cerebrovascular accident, Onset Age: 77 Sibling Family history of chronic obstructive pulmonary disease Family history of lung cancer Patient's brother is Mother Family history of transient ischemic attacks, Onset Age: 91 Other Family history of schizophrenia Social History Social History Smoking status: Former smoker Second hand tobacco smoke exposure: No Smoking end date: 03/09/87 Alcohol intake: never Substance use: never Substance use type: does not use
[2021-12-29 09:16] LABS: Alanine Aminotransferase 16 U/L (6-35); Albumin Level 3.9 g/dL (3.5-5.1); Alkaline Phosphatase 82 U/L (38-126); Anion Gap 10 mmol/L (8-16); Aspartate Amino Transferase 25 U/L (14-36); Bilirubin,Total 0.8 mg/dL (0.2-1.3); Blood Urea Nitrogen 14 mg/dL (7-17); Calcium 8.9 mg/dL (8.4-10.2); Carbon Dioxide 25 mmol/L (22-30); Chloride 97 mmol/L (98-107); Estimated CRCL calculation 34 ml/min; Estimated Glomerular Filt Rate 53; Glucose 91 mg/dL (65-110); Lipase 75 U/L (23-300); Sodium 132 mmol/L (137-145)
[2021-12-29 09:33] LABS: Magnesium 2.3 mg/dL (1.6-2.3)
[2021-12-29 10:17] LABS: Add Urine Microscopic? YES; Appearance Urine Clear (Clear); Bilirubin Urine Negative (Negative); Blood Urine Negative (Negative); Color Urine Straw (Yellow); Glucose Urine UA Negative (Negative); Ketones Urine Negative (Negative); Leukocyte Esterase Ur Negative LEU/UL (Negative); Nitrate Urine Negative (Negative); Protein Urine Negative (Negative); RBC Urine 0-2 /hpf (0-2); Specific Grav Ur 1.017 (1.001-1.035); Urobilinogen Urine Negative mg/dL (<2.0); WBC Urine 0-3 /hpf
[2021-12-29 10:21] LABS: Lactic Acid Reflex 1.7 mmol/L (0.7-2.0)
[2021-12-29 11:23] VITALS: BP 132/69; PULSE 90; RESP 20; O2SAT 96
== END 2021-12-29 11:25 | disposition home or self-care (01) ==
PROVIDERS: Physician Assistant; Emergency Provider Emergency Medicine; PCP Emergency Medicine
DX: R19.4 Change in bowel habit (principal); J45.20 Mild intermittent asthma, uncomplicated; E78.00 Pure hypercholesterolemia, unspecified; K21.9 Gastro-esophageal reflux disease without esophagitis; Z87.891 Personal history of nicotine dependence; Z87.440 Personal history of urinary (tract) infections; F32.1 Major depressive disorder, single episode, moderate; K57.90 Diverticulosis of intestine, part unspecified, without perforation or abscess without bleeding; R91.8 Other nonspecific abnormal finding of lung field
CPT/HCPCS: 36415; 74177; 80053; 81001; 83605; 83690; 83735; 85025; 99284; Q9967

== ENCOUNTER 2022-02-11 01:50 | Day surgery (SDC) | payer MEDICARE, SELFPAY ==
[2022-01-29 13:36] VITALS: BMI 23.0
--- NOTE | 2022-02-11 10:45 | WPDANESEPPF ---
Anes - Initial Pre Proc Eval Procedure: Operation Date: 02/11/22 12:30 Proposed Procedures p Esophagogastroduodenoscopy & Colonoscopy - Gil Lubin MD Date/Time: 02/11/22 10:45 Surgeon: Gil Lubin MD Pre Op Diagnosis: dysphagia; change in bowel habits Patient Data Age: 82 Gender: F Height: 1.65 m Weight: 62.7 kg Allergies Allergy/AdvReac Type Severity Reaction Status Date / Time propoxyphene [From Darvon] Allergy Severe Swelling Verified 02/11/22 10:58 of Lip/Tongue/Throat Home Medications Medication Instructions Recorded Confirmed Type albuterol sulfate 90 mcg/actuation See Rx Instructions .Route .COMPLEX 02/22/19 01/29/22 History aerosol inhaler (ProAir HFA) beclomethasone dipropionate 80 See Rx Instructions .Route .COMPLEX 02/22/19 01/29/22 History mcg/actuation aerosol inhaler calcium polycarbophil 625 mg 1,250 mg PO BID 02/22/19 01/29/22 History tablet (FiberCon) fluticasone propionate 50 1 - 2 spray intranasal DAILY PRN 02/22/19 01/29/22 History mcg/actuation nasal Allergy Symptoms spray,suspension (Flonase Allergy Relief) multivit with 1 tablet PO DAILY 02/22/19 01/29/22 History dhalmgjo-nvru-RW-lutein 8 mg iron-400 mcg-300 mcg tablet (Centrum Silver Women) trazodone 50 mg tablet 50 mg PO QHS PRN sleep #90 tabs 08/30/21 01/29/22 Rx escitalopram oxalate 20 mg tablet 20 mg PO DAILY #90 tabs 10/11/21 01/29/22 Rx (Lexapro) losartan 25 mg tablet 25 mg PO DAILY #90 tabs 12/17/21 01/29/22 Rx losartan 50 mg tablet See Rx Instructions .Route 12/25/21 01/29/22 Rx .COMPLEX #90 tabs lansoprazole 30 mg capsule,delayed See Rx Instructions .Route .COMPLEX 01/29/22 01/29/22 History release (Prevacid) Patient hx anesthesia problems: none Family hx anesthesia problems: none Results Review: All pre-operative results and documents have been reviewed as part of the pre-operative evaluation. [facility] Past Medical History Medical History (Updated 02/11/22 @ 10:47 by Pérez Vilchis DO) Acute left-sided low back pain without sciatica Acute non-recurrent sinusitis Acute pain of left hip Asthma Body mass index [BMI] 25.0-25.9, adult (10/27/16) Constipation Diarrhea Fatigue Frequent UTI GERD without esophagitis Hypertension Memory loss Mild persistent asthma without complication Moderate single current episode of major depressive disorder Presbycusis, bilateral Pure hypercholesterolemia Unsteady gait Surgical History Surgical History History of cholecystectomy History of tubal ligation Family History Family History Father Family history of transient ischemic attacks Patient's father is Cerebrovascular accident, Onset Age: 77 Sibling Family history of chronic obstructive pulmonary disease Family history of lung cancer Patient's brother is Mother Family history of transient ischemic attacks, Onset Age: 91 Other Family history of schizophrenia Social History Social History Smoking packs per day: 2 Smoking cigarettes per day: 40.0 Smoking status: Former smoker Tobacco type: cigarettes Second hand tobacco smoke exposure: No Smoking end date: 03/09/87 Alcohol intake: never Substance use: never Substance use type: does not use Gender identity (if verbalized by the patient): Female Spiritual care concerns: No Agree to blood products: Yes Anes - Eval Final PreProcedure Day of Procedure 02/11/22 10:45 Patient weight: normal Heart: regular rate and rhythm Lungs: clear to auscultation and normal air movement Airway: Mallampati scale class II Neurological: alert and oriented Last oral intake: >/= 8 hours ASA classification: III Emergent: no Anesthet
[2022-02-11 10:50] VITALS: BP 152/62; PULSE 90; RESP 16; TEMP 36.6; O2SAT 100; BMI 23.3
[2022-02-11] MEDS: LACTATED RINGERS 1,000 ML 150 ML IV CONT (11:07)
--- NOTE | 2022-02-11 11:07 | PM.HPGS ---
History of Present Illness History of Present Illness Consent: Risks, benefits, and alternatives have been discussed and questions answered. Patient agrees to proceed with procedure. Chief complaint: dysphagia; change in bowel habits Narrative: Lisa Tovar is a 82 year old female with belching and sometimes feeling food getting stuck, also lately with constipation- even had CT scan a/p. Last colonoscopy 2008 Review of Systems Constitutional: Constitutional: Denies headache(s) and Denies weakness Eyes: Eyes: Denies blurry vision ENT: Reports Normal hearing present, Denies headache(s) and Denies neck pain Cardiovascular: Cardiovascular: Denies chest pain and Denies dyspnea Respiratory: Respiratory: Denies dyspnea Gastrointestinal: Gastrointestinal: Reports no additional gastrointestinal complaints Genitourinary: Genitourinary: Denies dysuria Musculoskeletal: Musculoskeletal: Denies neck pain Integumentary/Breasts: Skin/Breast: Denies dry skin Neurologic: Reports Normal hearing present, Denies headache(s) and Denies weakness Psychiatric: Psychiatric: Denies anxiety Endocrine: Endocrine: Denies change in body appearance Hematologic/Lymphatic: Hematologic/Lymphatic: Denies easy bleeding Allergic/Immunologic: Allergic/Immunologic: Denies urticaria PMFSH Past Medical History Medical History (Updated 02/11/22 @ 10:47 by Pérez Vilchis DO) Acute left-sided low back pain without sciatica Acute non-recurrent sinusitis Acute pain of left hip Asthma Body mass index [BMI] 25.0-25.9, adult (10/27/16) Constipation Diarrhea Fatigue Frequent UTI GERD without esophagitis Hypertension Memory loss Mild persistent asthma without complication Moderate single current episode of major depressive disorder Presbycusis, bilateral Pure hypercholesterolemia Unsteady gait Surgical History Surgical History History of cholecystectomy History of tubal ligation Family History Family History Father Family history of transient ischemic attacks Patient's father is Cerebrovascular accident, Onset Age: 77 Sibling Family history of chronic obstructive pulmonary disease Family history of lung cancer Patient's brother is Mother Family history of transient ischemic attacks, Onset Age: 91 Other Family history of schizophrenia Social History Social History Smoking packs per day: 2 Smoking cigarettes per day: 40.0 Smoking status: Former smoker Tobacco type: cigarettes Second hand tobacco smoke exposure: No Smoking end date: 03/09/87 Alcohol intake: never Substance use: never Substance use type: does not use Gender identity (if verbalized by the patient): Female Spiritual care concerns: No Agree to blood products: Yes Meds Home Medications and Allergies Home Medications Medication Instructions Recorded Confirmed Type albuterol sulfate 90 mcg/actuation See Rx Instructions .Route .COMPLEX 02/22/19 02/11/22 History aerosol inhaler (ProAir HFA) beclomethasone dipropionate 80 See Rx Instructions .Route .COMPLEX 02/22/19 02/11/22 History mcg/actuation aerosol inhaler calcium polycarbophil 625 mg 1,250 mg PO BID 02/22/19 02/11/22 History tablet (FiberCon) fluticasone propionate 50 1 - 2 spray intranasal DAILY PRN 02/22/19 02/11/22 History mcg/actuation nasal Allergy Symptoms spray,suspension (Flonase Allergy Relief) multivit with 1 tablet PO DAILY 02/22/19 02/11/22 History usfeockj-gqrx-MF-lutein 8 mg iron-400 mcg-300 mcg tablet (Centrum Silver Women) trazodone 50 mg tablet 50 mg PO QHS PRN sleep #90 tabs 08/30/21 02/11/22 Rx escitalopram oxalate 20 mg tablet 20 mg PO DAILY #90 tabs 10/11/21 02/11/22 Rx (Lexapro) losartan 2
--- NOTE | 2022-02-11 11:38 | SUR.OPER ---
EGD START: 1117; END: 1121. COLONOSCOPY START: 1125; END: 1138.
[2022-02-11 11:44] VITALS: BP 122/62; PULSE 73; RESP 19; O2SAT 100
[2022-02-11 11:54] VITALS: BP 134/81; PULSE 70; RESP 19; O2SAT 100
[2022-02-11 12:04] VITALS: BP 138/76; PULSE 68; RESP 19; O2SAT 100
[2022-02-11 12:35] LABS: Glucose Point of Care 90 mg/dl (65-105)
== END 2022-02-11 13:18 | disposition home or self-care (01) ==
PROVIDERS: PCP Emergency Medicine; Visit Provider Internal Medicine Gastroenterology
PROC: 0DJ08ZZ Inspection of Upper Intestinal Tract, Via Natural or Artificial Opening Endoscopic (ICD-10-PCS; CPT 43235; principal; 2022-02-11 12:30)
DX: Z12.11 Encounter for screening for malignant neoplasm of colon (principal); K59.00 Constipation, unspecified; D17.5 Benign lipomatous neoplasm of intra-abdominal organs; K63.5 Polyp of colon; D12.8 Benign neoplasm of rectum; K57.30 Diverticulosis of large intestine without perforation or abscess without bleeding; K44.9 Diaphragmatic hernia without obstruction or gangrene; K31.7 Polyp of stomach and duodenum; K21.9 Gastro-esophageal reflux disease without esophagitis; R13.10 Dysphagia, unspecified; R14.2 Eructation; I10 Essential (primary) hypertension; J45.30 Mild persistent asthma, uncomplicated; F32.A Depression, unspecified; E78.00 Pure hypercholesterolemia, unspecified; Z79.51 Long term (current) use of inhaled steroids; Z87.891 Personal history of nicotine dependence
CPT/HCPCS: 45385; 43239; 82948; 88305; J2704; J7120

== ENCOUNTER 2022-02-12 09:42 | Inpatient (IN) | payer MEDICARE, SELFPAY ==
[2022-02-12] VITALS (8 sets, daily range): BP systolic 105–126; BP diastolic 40–60; PULSE 65–104; RESP 12–21; TEMP 36.3–36.9; O2SAT 97–100; BMI 23.1
--- NOTE | ~2022-02-12 | CT_ITS ---
EXAMINATION: CT abdomen pelvis w con DATE: 02/12/2022 11:21 INDICATION: Abdominal pain post colonoscopy. Constipation. TECHNIQUE: Computed tomography (CT) of the abdomen and pelvis was performed with 100 cc Omnipaque 350 intravenous contrast. Automated exposure control and iterative reconstruction technique were employe d. Exam dose: 362.01 mGy-cm total exam DLP. COMPARISON: 12/29/2021 CT abdomen pelvis. FINDINGS: There is bibasilar discoid atelectasis. There is high attenuation fluid adjacent to the spleen with irregularity at the anterolateral margin of the spleen. There is mild high attenuation fluid in the left paracolic gutter and minimal fluid ad jacent to the liver. High attenuation fluid is noted in the dependent pelvis as well. Splenic lacerat ion and pneumoperitoneum are suspected. Status post cholecystectomy. No hepatic, splenic, pancreatic, adrenal space-occupying mass lesion. Ri ght kidney is unremarkable. Approximately 6.4 cm left renal cyst. No urinary tract calculus or hydrou reteronephrosis. There is atherosclerotic calcification of the abdominal aorta and at the origins of the celiac and duffy perior mesenteric and renal arteries. No abdominal aortic aneurysm. No intraperitoneal or retroperitoneal or pelvic mass lesion or adenopathy. Uterus, adnexal areas and urinary bladder are unremarkable. Multilevel degenerative disc disease, particularly at L1-2, L4-5 and L5-S1, with associated minimal r etrolisthesis at each of these levels. There is degenerative changes apophyseal joints, with associated grade 1 anterolisthesis at L3-4. No suspicious osteolytic or osteoblastic lesions. IMPRESSION: Mild anterolateral splenic laceration of with moderate hemoperitoneum Medications telephoned the report on 02/12/2022 1134 hours to emergency room physician Dr. Jean. Reviewed, dictated and finalized at [facility]. Reviewed, dictated and finalized at [facility]. [employer] IMPRESSION: Mild anterolateral splenic laceration of with moderate hemoperiton eum Medications telephoned the report on 02/12/2022 1134 hours to emergency room shazia Jean.
--- NOTE | 2022-02-12 09:45 | ECG_ITS ---
Measurements Intervals [place] Rate: 96 P: 63 MI: 142 QRS: -63 QRSD: 133 T: 18 QT: 375 QTc: 474 Interpretive Statements SINUS RHYTHM RIGHT BUNDLE BRANCH BLOCK [120+ ms QRS DURATION, UPRIGHT V1, 40+ ms S IN I/aVL/V4/V5/V6] COMPARED TO ECG 08/12/2021 13:57:25 SINUS RHYTHM NOW PRESENT Electronically Signed On 02-12-2022 15:07:44 FIELD INVESTIGATOR by Emir Manley M.D.
[2022-02-12 10:23] LABS: Basophils Percent Auto 0.3 % (0.2-1.2); Eosinophils Percent Auto 0.3 % (0-4.4); Hematocrit 33.5 % (37.0-47.0); Hemoglobin 11.5 g/dL (12.0-15.0); Immature Granulocyte Absolute 0.09 K/mm3 (0.00-0.031); Immature Granulocyte Percent A 0.9 % (0-0.5); Lymphocytes Absolute Auto 0.93 K/mm3 (0.9-3.2); Lymphocytes Percent Auto 9.7 % (18.3-44.2); Mean Corpuscular HGB Conc 34.3 g/dl (32-36); Mean Corpuscular Hemoglobin 32.4 pg (26-34); Mean Corpuscular Volume 94.4 fl (80-100); Mean Platelet Volume 10.1 fl (7.4-10.4); Monocytes Absolute Auto 0.9 K/mm3 (0.1-0.6); Monocytes Percent Auto 9.5 % (2.6-8.5); Neutrophils Absolute Auto 7.6 K/mm3 (1.3-6.7); Neutrophils Percent Auto 79.3 % (45.5-73.1); Platelet Count Result 233 k/mm3 (150-375); Red Blood Count 3.55 M/mm3 (4.2-5.4); Red Cell Distribution Width 13.5 % (11.5-14.5); White Blood Count 9.6 K/mm3 (4.5-10.0)
--- NOTE | 2022-02-12 10:28 | ED.ABDPAIN ---
HPI - Abdominal Pain General Chief Complaint: Abdominal Pain Stated Complaint: left lower abdominal pain radiating to L shoulder Time Seen by Provider: 02/12/22 10:23 Source: patient and family Limitations: no limitations History of Present Illness HPI narrative: 82 years old white female came to the emergency room by private car complaining of left side abdominal pain radiating to left shoulder blade started immediately after having colonoscopy and EGD yesterday by Dr. Saucedo, the discomfort was intermittent, got worse today. She denies any fever, chills, nausea, vomiting. Pain is worse with movement, coughing or laughing or any activity. The pain is better at rest. Patient is not on any antiplatelet or anticoagulant medication. Patient denies any recent trauma prior to the procedure. History of hypertension, asthma and cholecystectomy. Patient does not smoke or drink or uses drugs. Related Data Home Medications Medication Instructions Recorded Confirmed albuterol sulfate 90 mcg/actuation See Rx Instructions .Route 02/22/19 02/12/22 aerosol inhaler (ProAir HFA) .COMPLEX PRN Wheezing beclomethasone dipropionate 80 See Rx Instructions .Route .COMPLEX 02/22/19 02/12/22 mcg/actuation aerosol inhaler calcium polycarbophil 625 mg 1,250 mg PO BID 02/22/19 02/12/22 tablet (FiberCon) fluticasone propionate 50 1 spray intranasal DAILY PRN 02/22/19 02/12/22 mcg/actuation nasal Allergy Symptoms spray,suspension (Flonase Allergy Relief) multivit with 1 tablet PO DAILY 02/22/19 02/12/22 sywaerlu-jnbu-UH-lutein 8 mg iron-400 mcg-300 mcg tablet (Centrum Silver Women) lansoprazole 30 mg capsule,delayed See Rx Instructions .Route .COMPLEX 01/29/22 02/12/22 release (Prevacid) PreserVision AREDS-2 1 tablet PO BID 02/12/22 02/12/22 Vitamin D3 2,000 units PO DAILY 02/12/22 02/12/22 biotin 2,500 mcg capsule 2,500 mcg PO DAILY 02/12/22 02/12/22 clonazepam 0.5 mg tablet 0.5 mg PO HS 02/12/22 02/12/22 cyclosporine 0.05 % eye drops in a 1 drp EACH EYE DAILY 12/07/22 12/07/22 dropperette (Restasis) trimethoprim 1 tablet PO HS 02/12/22 02/12/22 Allergies Allergy/AdvReac Type Severity Reaction Status Date / Time propoxyphene [From Darvon] Allergy Severe Swelling Verified 02/12/22 10:19 of Lip/Tongue/Throat Review of Systems Review of Systems: All systems reviewed & are unremarkable except as noted in HPI and below PMFSH Past Medical History Medical History (Updated 02/12/22 @ 23:57 by Isabel Reynolds PA-C) Asthma Constipation Frequent UTI GERD without esophagitis Hypertension Memory loss Mild persistent asthma without complication Moderate single current episode of major depressive disorder Presbycusis, bilateral Pure hypercholesterolemia Unsteady gait Surgical History Surgical History History of cholecystectomy History of tubal ligation Family History Family History Father Family history of transient ischemic attacks Patient's father is Cerebrovascular accident, Onset Age: 77 Sibling Family history of chronic obstructive pulmonary disease Family history of lung cancer Patient's brother is Mother Family history of transient ischemic attacks, Onset Age: 91 Other Family history of schizophrenia Social History Social History (Updated 02/12/22 @ 23:57 by Isabel Reynolds PA-C) Social History: Surrogate medical decision maker: Che Field or Steffany Leeann, daughters. Code status: Full code. Smoking packs per day: 1.5 Smoking cigarettes per day: 30.0 Years smoked: 5 Smoking pack-years: 7.50 Smoking status: Former smoker Tobacco type: cigarettes Second hand tobacco smoke exposure: No Smoking end date: 03/09/87 Alcohol intake: former Substance use: never Substance use type: avilez
[2022-02-12 10:33] LABS: Alanine Aminotransferase 20 U/L (6-35); Albumin Level 3.8 g/dL (3.5-5.1); Alkaline Phosphatase 89 U/L (38-126); Anion Gap 5 mmol/L (8-16); Aspartate Amino Transferase 31 U/L (14-36); Blood Urea Nitrogen 8 mg/dL (7-17); Calcium 9.1 mg/dL (8.4-10.2); Carbon Dioxide 29 mmol/L (22-30); Chloride 93 mmol/L (98-107); Estimated CRCL calculation 33 ml/min; Estimated Glomerular Filt Rate 53; Glucose 112 mg/dL (65-110); Lipase 44 U/L (23-300); Potassium 3.7 mmol/L (3.4-5.0); Sodium 127 mmol/L (137-145)
[2022-02-12 11:18] LABS: Appearance Urine Clear (Clear); Bilirubin Urine Negative (Negative); Blood Urine Negative (Negative); Color Urine Yellow (Yellow); Glucose Urine UA Negative (Negative); Ketones Urine Negative (Negative); Leukocyte Esterase Ur 1+ LEU/UL (Negative); Nitrate Urine Negative (Negative); Protein Urine Negative (Negative); Urobilinogen Urine 0.2 mg/dL (<2.0)
[2022-02-12 11:22] LABS: Bacteria Urine Trace /hpf; Mucus Urine Heavy /lpf; RBC Urine 0-2 /hpf (0-2); Squamous Epithelial Cell Urine Occasional /hpf (Few)
[2022-02-12 11:24] LABS: Add Urine Microscopic? YES
[2022-02-12 11:25] LABS: Lactic Acid Reflex 1.4 mmol/L (0.7-2.0)
[2022-02-12] MEDS: MORPHINE SULFATE (*CRX) 4 MG/ML INJ IV PUSH (11:41)
[2022-02-12] MEDS: ONDANSETRON INJ 4 MG/2 ML VIAL IV PUSH (11:42)
[2022-02-12] MEDS: SODIUM CHLORIDE 0.9% IV 1,000 ML 999 ML IV CONT (11:42)
[2022-02-12 13:21] LABS: Influenza A QL RT-PCR Negative (Negative); Influenza B QL RT-PCR Negative (Negative); SARS-CoV-2 RNA PCR Negative
[2022-02-12] MEDS: SODIUM CHLORIDE 0.9% IV 1,000 ML 100 ML IV CONT (13:53)
--- NOTE | 2022-02-12 14:44 | WPDCNINT ---
Assessment and Plan Assessment and plan (1) Spleen laceration: Code(s): S36.039A - Unspecified laceration of spleen, initial encounter Status: Acute Assessment and Plan: Patient presented to the ED on 02/12/2022 with abdominal pain, status post EGD and colonoscopy on 02/11/2022. -CT scan of the abdomen and pelvis showed mild antral lateral splenic laceration with moderate hemoperitoneum -this could be a complication of colonoscopy as patient was at high risk given her age. -appreciate GI evaluation -will continue to monitor H&H q.6 hours -surgery has been consulted Discussed with Dr. Saucedo (2) Hemoperitoneum: Code(s): K66.1 - Hemoperitoneum Status: Acute Assessment and Plan: Hemoperitoneum likely related to splenic laceration -monitor as above (3) Acute blood loss anemia: Code(s): D62 - Acute posthemorrhagic anemia Status: Acute Assessment and Plan: Continue to monitor hemoglobin level -will transfuse as needed (4) Hypertension: Qualifiers: Hypertension type: essential hypertension Qualified Code(s): I10 - Essential (primary) hypertension Code(s): I10 - Essential (primary) hypertension Status: Acute Assessment and Plan: Patient with history of hypertension does take losartan at home, patient did take her medication this morning on 02/12/2022 -will hold losartan for now given borderline blood pressures (5) Asthma: Qualifiers: Asthma severity: mild Asthma persistence: intermittent Asthma complication type: uncomplicated Qualified Code(s): J45.20 - Mild intermittent asthma, uncomplicated Code(s): J45.909 - Unspecified asthma, uncomplicated Status: Acute Assessment and Plan: Patient does take albuterol and QVAR at home -will continue albuterol and QVAR Plan DVT prophylaxis: SCD Stress ulcer prophylaxis: Protonix Nutrition: Clear liquid diet Discuss with Dr. Saucedo Code Status: Full code Critical Care Time Spent: 44 minutes Due to a high probability of clinically significant, life threatening deterioration, the patient required my highest level of preparedness to intervene emergently and I personally spent this critical care time directly and personally managing the patient. This critical care time included obtaining a history; examining the patient; pulse oximetry; ordering and review of studies; arranging urgent treatment with development of a management plan; evaluation of patient's response to treatment; frequent reassessment; and discussions with other providers. It was exclusive of separately billable procedures and treating other patients and teaching time. Please see Assessment and Plan section and the rest of the note for further information on patient assessment and treatment Audio Production Instructor Consult Note Consult date: 02/12/22 Reason for consult: Splenic laceration, hemoperitoneum anemia HPI: Lisa Tovar is a 82 year old female with past medical history of low back pain, constipation, diarrhea, UTI, GERD, essential hypertension, asthma, depression, hypercholesterolemia presented to the ED on 02/12/2022 with complains of left-sided abdominal pain radiating to left scapula, she stated the pain started after she had an EGD and a colonoscopy on 02/11/[address] Saucedo. She describes the pain is intermittent and got worse this morning, denies any fevers, chills, nausea, vomiting. Pain worsens with movement, cough, laughing or any activity and is relieved at rest. Patient is not on any anticoagulation or antiplatelet medications. Denies any trauma. Patient denies any alcohol, tobacco or illicit drug use. CT of the abdomen and pelvis showed mild anterolateral splenic laceration with moderate hemoperitoneum, UA was positive for leukocyte esterase. Patient seen and examined the ICU upon arrival. Pleasant female in no acute distress, hemodynamically stable on room air good O2 sats
--- NOTE | 2022-02-12 14:46 | WPDGICN ---
Assessment and Plan Assessment and plan (1) Spleen laceration: Code(s): S36.039A - Unspecified laceration of spleen, initial encounter Status: Acute Assessment and Plan: this probably is post traumatic after colonoscopy (it was not a particular difficult colonoscopy but she was at higher risk given her age) monitor for more signs of bleeding trend h/h surgery will see patient hopefully medical care will be enough (2) Hemoperitoneum: Code(s): K66.1 - Hemoperitoneum Status: Acute Assessment and Plan: from spleen laceration trend h/h (3) Acute blood loss anemia: Code(s): D62 - Acute posthemorrhagic anemia Status: Acute Assessment and Plan: continue to monitor (4) Constipation: Code(s): K59.00 - Constipation, unspecified Status: Acute Assessment and Plan: this was the cause of the colonoscopy, patient was concerned enough that prompted an outpatient colonoscopy (5) Colonoscopy causing post-procedural bleeding: Code(s): K91.840 - Postprocedural hemorrhage of a digestive system organ or structure following a digestive system procedure Status: Acute GI Consult Note Consult date/time: 02/12/22 14:46 HPI: Lias Tovar is a 82 year old female who came initially to our office after she developed constipation and was concerned that she had a bowel blockage, she even went to ER and had CT scan that revealed moderate to large amount of stool scattered throughout the colon,? lipoma in the ascending colon and diverticulosis, somehow improved but not back to her baseline. Last colonoscopy was 2008, also had some weight loss. She also was complaining of intermittent dysphagia. She came yesterday as outpatient to endoscopy lab, EGD was unremarkable, colonoscopy showed lipoma in ascending colon and had 2 rectal TA polyps removed with hot snare. She developed some discomfort in recovery but eventually went home. She came back to the hospital because worsening pain in LUQ with radiation to her left shoulder. CT scan found Mild anterolateral splenic laceration of with moderate hemoperitoneum, hb 11 (baseline 13). She was admitted to icu, she is quite comfortable after iv morphine, hemodynamically stable. Review of Systems Constitutional: Constitutional: Denies headache(s) and Denies weakness Eyes: Eyes: Denies blurry vision ENT: Reports Normal hearing present, Denies headache(s) and Denies neck pain Cardiovascular: Cardiovascular: Denies chest pain and Denies dyspnea Respiratory: Respiratory: Denies dyspnea Gastrointestinal: Gastrointestinal: Reports abdominal pain Genitourinary: Genitourinary: Denies dysuria Musculoskeletal: Musculoskeletal: Denies neck pain Integumentary/Breasts: Skin/Breast: Denies dry skin Neurologic: Reports Normal hearing present, Denies headache(s) and Denies weakness Psychiatric: Psychiatric: Denies anxiety Endocrine: Endocrine: Denies change in body appearance Hematologic/Lymphatic: Hematologic/Lymphatic: Denies easy bleeding Allergic/Immunologic: Allergic/Immunologic: Denies urticaria PMFSH Past Medical History Medical History (Updated 02/12/22 @ 14:53 by Gil Lubin MD) Acute blood loss anemia Acute left-sided low back pain without sciatica Acute non-recurrent sinusitis Acute pain of left hip Asthma Body mass index [BMI] 25.0-25.9, adult (10/27/16) Constipation Diarrhea Fatigue Frequent UTI GERD without esophagitis Hemoperitoneum Hypertension Memory loss Mild persistent asthma without complication Moderate single current episode of major depressive disorder Presbycusis, bilateral Pure hypercholesterolemia Unsteady gait Surgical History Surgical History History of cholecystectomy History of tubal ligation Family History Family History Father Family history o
[2022-02-12 15:07] LABS: Hematocrit 31.4 % (37.0-47.0); Hemoglobin 10.5 g/dL (12.0-15.0)
--- NOTE | 2022-02-12 15:08 | ADMGEN ---
This patient, Lisa Tovar, was admitted to Intensive Care Unit-11. Patient/family oriented to hospital policies and general routines including ID bracelet, bed and alarms, visiting hours, pain management, procedures, bathroom and other care routines, personal items, smoking policy, room service/diet, and visiting hours. Information on how to activate the Rapid Response Team has been discussed. Patient/Family are encouraged to report perceived risks to care and to ask questions if they do not understand what they are told or what they should do.
[2022-02-12 15:19] LABS: INR 1.2; Prothrombin Time 14.4 Seconds (11.1-14.7)
[2022-02-12 15:20] LABS: Partial Thromboplastin Time 27.5 SECONDS (22.3-36.8)
--- NOTE | 2022-02-12 18:26 | PM.CNGS ---
Assessment and Plan Assessment and plan (1) Spleen laceration: Code(s): S36.039A - Unspecified laceration of spleen, initial encounter Status: Acute Assessment and Plan: most likely an omental adhesion to the spleen tore as colonoscope passed the acute angulation in the colon at the splenic flexure. This causes a capsular injury and should resolve without surgery. No blush or evidence of active bleeding on the CT scan. Recommend patient be monitored closely in the ICU and stay at bedrest for a couple of days. Monitor H&H regularly for now. Okay to advance diet slowly. Thank you for asking me to see this patient in consultation, I will follow along with you. If bleeding persists, may need surgical treatment but hopefully this will not be necessary. (2) Acute blood loss anemia: Code(s): D62 - Acute posthemorrhagic anemia Status: Acute Assessment and Plan: Monitor H&H. History of Present Illness Consult details Consult date: 02/12/22 Reason for consult: abdominal pain Requesting physician: Brina Jean MD Narrative: Patient is an 82-year-old woman who yesterday underwent EGD and colonoscopy by Dr. Saucedo. The EGD was done for complaints of dysphagia and reflux. No esophagitis was found only some stomach polyps. The colonoscopy also showed some polyps and a lipoma as well as diverticulosis. No acute findings. At the end of the procedure the patient had left-sided abdominal pain upper quadrant and lower quadrant. The pain was intermittent and tolerable yesterday, however today it was worse and she came to the emergency room. Her hemoglobin and hematocrit were 11.[address] scan of the abdomen pelvis was done and showed evidence of a splenic laceration and bleeding. Most of the old blood was around the spleen although there was some blood elsewhere in the abdomen. The CT was done with IV contrast and no active bleeding or blush was noted. The patient is not on anticoagulants or anti thrombotic medication. She seen now in consultation regarding her splenic hemorrhage. Review of Systems Review of Systems: All systems reviewed & are unremarkable except as noted in HPI and below ( HPI and those items noted below) Constitutional: Constitutional: Denies chills and Denies fever(s) Cardiovascular: Cardiovascular: Denies chest pain, Denies diaphoresis, Denies dyspnea and Denies paroxysmal nocturnal dyspnea Respiratory: Respiratory: Denies chest congestion, Denies cough and Denies dyspnea Integumentary/Breasts: Skin/Breast: Denies lesions and Denies rash PMFSH Past Medical History Medical History Acute blood loss anemia Acute left-sided low back pain without sciatica Acute non-recurrent sinusitis Acute pain of left hip Asthma Body mass index [BMI] 25.0-25.9, adult (10/27/16) Constipation Diarrhea Fatigue Frequent UTI GERD without esophagitis Hemoperitoneum Hypertension Memory loss Mild persistent asthma without complication Moderate single current episode of major depressive disorder Presbycusis, bilateral Pure hypercholesterolemia Unsteady gait Surgical History Surgical History History of cholecystectomy History of tubal ligation Family History Family History Father Family history of transient ischemic attacks Patient's father is Cerebrovascular accident, Onset Age: 77 Sibling Family history of chronic obstructive pulmonary disease Family history of lung cancer Patient's brother is Mother Family history of transient ischemic attacks, Onset Age: 91 Other Family history of schizophrenia Social History Social History Smoking packs per day: 1.5 Smoking cigarettes per day: 30.0 Years smoked: 5
--- NOTE | 2022-02-12 18:50 | PC.NURSE ---
Dr. Fink updated on H&H and blood pressure.
[2022-02-12 20:15] LABS: Hematocrit 30.4 % (37.0-47.0); Hemoglobin 10.3 g/dL (12.0-15.0)
[2022-02-12] MEDS: FLUTICASONE PROP 44 MCG (*SP) 10.6 GM 2 PUFF INHALATION (22:14)
--- NOTE | 2022-02-12 23:00 | PM.IMHP ---
H&P: HPI History of Present Illness Date/Time: 02/12/22 23:00 Chief Complaint: Abdominal pain. Narrative: This is a pleasant 82-year-old female presented to the emergency department for evaluation of left-sided abdominal pain. She had a colonoscopy yesterday for evaluation of ongoing issues with constipation and she reports that she woke up from the procedure with pain on the left side. It has continued and has gotten increasingly worse as time has gone on. She describes a sharp shooting pain that seems to radiate into the left arm. It is worse with movement, deep inspiration coughing, etc. and is somewhat improved with rest. CT of the abdomen and pelvis showed a mild anterolateral splenic laceration with moderate hemoperitoneum and she is being admitted in this setting for close monitoring and surgery consultation. Her vital signs and hemoglobin have remained stable in the last 12 hours since presentation. She denies trauma prior to the procedure. The time my evaluation she is feeling a bit better and she has no specific complaints aside from the fact that she has to get up to urinate continuously with the IV fluids. Review of Systems Review of Systems: Twelve systems were reviewed. No fever, chills, or sweats. No chest pain or shortness of breath. No dysuria. No nausea, vomiting, or diarrhea. She has been passing quite a bit of flatus. She has not had a bowel movement today. Except as documented, all other systems were reviewed and are negative. [facility] Past Medical History Medical History (Updated 02/12/22 @ 23:57 by Isabel Reynolds PA-C) Asthma Constipation Frequent UTI GERD without esophagitis Hypertension Memory loss Mild persistent asthma without complication Moderate single current episode of major depressive disorder Presbycusis, bilateral Pure hypercholesterolemia Unsteady gait Surgical History Surgical History History of cholecystectomy History of tubal ligation Family History Family History Father Family history of transient ischemic attacks Patient's father is Cerebrovascular accident, Onset Age: 77 Sibling Family history of chronic obstructive pulmonary disease Family history of lung cancer Patient's brother is Mother Family history of transient ischemic attacks, Onset Age: 91 Other Family history of schizophrenia Social History Social History (Updated 02/12/22 @ 23:57 by Isabel Reynolds PA-C) Social History: Surrogate medical decision maker: Che Field or Steffany Bradshaw, daughters. Code status: Full code. Smoking packs per day: 1.5 Smoking cigarettes per day: 30.0 Years smoked: 5 Smoking pack-years: 7.50 Smoking status: Former smoker Tobacco type: cigarettes Second hand tobacco smoke exposure: No Smoking end date: 03/09/87 Alcohol intake: former Substance use: never Substance use type: does not use Lack of Transportation: No Lack of Food: Never True Current Housing: I Have Housing Concerned About Future Housing: No Difficulty Paying Gas/Electric Bills: No Difficulty Paying for Meds: No Currently Unemployed: No Education: Master's Degree or Higher Difficulty w/ Childcare or Family Care: No Spiritual care concerns: No Agree to blood products: Yes Meds Home Medications and Allergies Home Medications Medication Instructions Recorded Confirmed Type albuterol sulfate 90 mcg/actuation See Rx Instructions .Route 02/22/19 02/12/22 History aerosol inhaler (ProAir HFA) .COMPLEX PRN Wheezing beclomethasone dipropionate 80 See Rx Instructions .Route .COMPLEX 02/22/19 02/12/22 History mcg/actuation aerosol inhaler calcium polycarbophil 625 mg 1,250 mg PO BID 02/22/19 02/12/22 History tablet (FiberCon) fluticasone propionate 50 1 spray intranasal DAILY [place]
[2022-02-13] VITALS (11 sets, daily range): BP systolic 92–158; BP diastolic 43–87; PULSE 61–93; RESP 12–20; TEMP 36.4–37; O2SAT 95–99
[2022-02-13 00:49] LABS: Hematocrit 30.2 % (37.0-47.0); Hemoglobin 10.1 g/dL (12.0-15.0)
[2022-02-13] MEDS: TRIMETHOPRIM 100 MG TABLET PO ×2 (00:52→20:25)
[2022-02-13] MEDS: traZODone HCL 50 MG TABLET PO (00:52)
[2022-02-13] MEDS: clonazePAM (*CRX) 0.5 MG TABLET PO ×2 (00:52→20:25)
[2022-02-13 01:06] LABS: Anion Gap 2 mmol/L (8-16); Blood Urea Nitrogen 6 mg/dL (7-17); Calcium 8.2 mg/dL (8.4-10.2); Carbon Dioxide 25 mmol/L (22-30); Chloride 105 mmol/L (98-107); Estimated CRCL calculation 37 ml/min; Estimated Glomerular Filt Rate 60; Glucose 84 mg/dL (65-110); Potassium 3.9 mmol/L (3.4-5.0); Sodium 132 mmol/L (137-145)
[2022-02-13 04:37] LABS: Basophils Absolute Auto 0.1 K/mm3 (0.0-0.1); Basophils Percent Auto 0.8 % (0.2-1.2); Eosinophils Absolute Auto 0.1 K/mm3 (0-0.3); Eosinophils Percent Auto 1.6 % (0-4.4); Hemoglobin 9.3 g/dL (12.0-15.0); Immature Granulocyte Absolute 0.06 K/mm3 (0.00-0.031); Lymphocytes Absolute Auto 1.55 K/mm3 (0.9-3.2); Lymphocytes Percent Auto 24.6 % (18.3-44.2); Mean Corpuscular HGB Conc 33.2 g/dl (32-36); Mean Corpuscular Hemoglobin 32.9 pg (26-34); Mean Corpuscular Volume 98.9 fl (80-100); Mean Platelet Volume 10.5 fl (7.4-10.4); Monocytes Absolute Auto 0.8 K/mm3 (0.1-0.6); Monocytes Percent Auto 12.2 % (2.6-8.5); Neutrophils Absolute Auto 3.8 K/mm3 (1.3-6.7); Neutrophils Percent Auto 59.8 % (45.5-73.1); Platelet Count Result 180 k/mm3 (150-375); Red Blood Count 2.83 M/mm3 (4.2-5.4); Red Cell Distribution Width 13.9 % (11.5-14.5); White Blood Count 6.3 K/mm3 (4.5-10.0)
[2022-02-13 04:53] LABS: INR 1.2; Partial Thromboplastin Time 32.1 SECONDS (22.3-36.8); Prothrombin Time 14.6 Seconds (11.1-14.7)
[2022-02-13 04:56] LABS: Alanine Aminotransferase 16 U/L (6-35); Albumin Level 2.9 g/dL (3.5-5.1); Alkaline Phosphatase 75 U/L (38-126); Anion Gap 3 mmol/L (8-16); Aspartate Amino Transferase 30 U/L (14-36); Bilirubin,Total 0.6 mg/dL (0.2-1.3); Blood Urea Nitrogen 5 mg/dL (7-17); Carbon Dioxide 25 mmol/L (22-30); Chloride 102 mmol/L (98-107); Estimated CRCL calculation 33 ml/min; Estimated Glomerular Filt Rate 53; Glucose 77 mg/dL (65-110); Magnesium 2.1 mg/dL (1.6-2.3); Phosphorus 3.9 mg/dL (2.5-4.5); Potassium 3.8 mmol/L (3.4-5.0); Sodium 130 mmol/L (137-145)
[2022-02-13 05:02] LABS: Lactic Acid Reflex 0.8 mmol/L (0.7-2.0)
[2022-02-13] MEDS: cycloSPORINE 0.4 ML OPHTH SOLUTION 1 DROP EACH EYE (08:29)
[2022-02-13] MEDS: CITALOPRAM HYDROBROMIDE 20 MG TABLET PO (08:29)
[2022-02-13] MEDS: PANTOPRAZOLE SODIUM IV 40 MG VIAL IV PUSH (08:29)
[2022-02-13] MEDS: FLUTICASONE PROP 44 MCG (*SP) 10.6 GM 2 PUFF INHALATION ×2 (09:23→21:46)
[2022-02-13 10:44] LABS: Hematocrit 29.7 % (37.0-47.0); Hemoglobin 9.7 g/dL (12.0-15.0)
--- NOTE | 2022-02-13 10:54 | WPDINTPN ---
Progress Note: A&P Assessment and Plan (1) Spleen laceration: Code(s): S36.039A - Unspecified laceration of spleen, initial encounter Status: Acute Assessment and Plan: Patient presented to the ED on 02/12/2022 with abdominal pain, status post EGD and colonoscopy on 02/11/2022. -CT scan of the abdomen and pelvis showed mild antral lateral splenic laceration with moderate hemoperitoneum -this could be a complication of colonoscopy as patient was at high risk given her age. -GI general surgery following -hemoglobin is gradually trending down but no massive drop -will continue to monitor H&H at this time -hemodynamically stable and symptomatically improved -bedrest -transfer out of ICU if okay with General surgery (2) Hemoperitoneum: Code(s): K66.1 - Hemoperitoneum Status: Acute Assessment and Plan: Hemoperitoneum likely related to splenic laceration -monitor as above (3) Acute blood loss anemia: Code(s): D62 - Acute posthemorrhagic anemia Status: Acute Assessment and Plan: Continue to monitor hemoglobin level -will transfuse if needed (4) Hypertension: Qualifiers: Hypertension type: essential hypertension Qualified Code(s): I10 - Essential (primary) hypertension Code(s): I10 - Essential (primary) hypertension Status: Acute Assessment and Plan: Patient with history of hypertension does take losartan at home, patient did take her medication this morning on 02/12/2022 Currently on hold (5) Asthma: Qualifiers: Asthma severity: mild Asthma persistence: intermittent Asthma complication type: uncomplicated Qualified Code(s): J45.20 - Mild intermittent asthma, uncomplicated Code(s): J45.909 - Unspecified asthma, uncomplicated Status: Acute Assessment and Plan: Patient does take albuterol and QVAR at home -will continue albuterol and QVAR Plan DVT prophylaxis: SCD Stress ulcer prophylaxis: Protonix Nutrition: Clear liquid diet. Advance as per surgery Discussed with general surgery Code Status: Full code Incentive spirometry Subjective Date/time seen: 02/13/22 Overnight events reviewed. Afebrile Blood pressure adequate Patient states her pain is better. At rest she has no pain. She is able to take deeper breaths today but still has pain on movement coughing and deep breathing. Pain is in left upper quadrant of abdomen, sharp, 4/10, no radiation, improves with rest and worse with deep breathing and coughing. Denies any other complaints Tolerating liquid diet All other systems were reviewed and were negative Review of Systems Review of Systems: All systems reviewed & are unremarkable except as noted in HPI and below (HPI) Exam Narrative: General: Pleasant female in no distress HEENT:? Pupils equal and reactive, moist oral mucosa Neck:? Supple Respiratory:? Clear to auscultation bilaterally Cardiac:? S1-S2 normal, regular rate and rhythm Abdomen:? Soft, very mild tender in left upper quadrant with deep palpation, normoactive bowel sounds Extremities:? No edema, palpable pedal pulses Neuro:? Patient is awake, alert, oriented, nonfocal Skin:? No lesions noted Psych:? Normal mentation affect Objective Data Vital Signs Vital Signs: Vital Signs - 24 hr 02/12/22 12:54 02/12/22 14:09 02/12/22 16:00 Temperature 36.9 C Pulse Rate 73 68 71 Respiratory Rate 18 18 16 Blood Pressure 118/50 L 106/50 L 115/49 L Pulse Oximetry 100 97 99 Oxygen Delivery 02/12/22 16:00 02/12/22 16:00 02/12/22 18:00 Temperature Pulse Rate 65 74 Respiratory Rate Blood Pressure Pulse Oximetry 100 Oxygen Delivery Room Air 02/12/22 18:00 02/12/22 20:00 02/12/22 20:00 Temperature Pulse Rate 74 67 67 Respiratory Rate 20 20 Blood Pressure 114/40 L Pulse Oximetry 99 99 Oxygen Delivery Room Air 02/12/22 20:00 02/12/22 22:00 02/12/22 22:00 Temperature 36.8 C Pulse Rate
--- NOTE | 2022-02-13 11:23 | PM.PNGS ---
Progress Note: A&P Assessment and Plan (1) Spleen laceration: Code(s): S36.039A - Unspecified laceration of spleen, initial encounter Status: Acute Assessment and Plan: H&H stable even a little better today. Pain is much better. I discussed this with Dr. Suarez. Will keep patient at bed rest but transfer to intermediate care unit. Advance to solid food. Making good progress. No sign of persistent bleeding at present. (2) Acute blood loss anemia: Code(s): D62 - Acute posthemorrhagic anemia Status: Acute Assessment and Plan: Low but stable. Last H&H even higher. Subjective Subjective Date/Time Seen: 02/13/22 11:23 Patient reports: no new complaints, feels better, pain is less, tolerating liquids well and afebrile Review of Systems Review of Systems: All systems reviewed & are unremarkable except as noted in HPI and below ( HPI and those items noted below) Constitutional: Constitutional: Denies chills and Denies fever(s) Cardiovascular: Cardiovascular: Denies chest pain, Denies diaphoresis, Denies dyspnea and Denies paroxysmal nocturnal dyspnea Respiratory: Respiratory: Denies chest congestion, Denies cough and Denies dyspnea Gastrointestinal: Gastrointestinal: Reports abdominal pain ( decreased), Denies nausea and Denies vomiting Integumentary/Breasts: Skin/Breast: Denies lesions and Denies rash Exam Const: General: cooperative, comfortable, no acute distress, alert, awake and thin Orientation/consciousness: patient oriented x3 GI: Inspection: normal to inspection, non-distended and scaphoid GI Palp: Yes Soft to palpation and Yes Tenderness to palpation present (GI) ( less tender today, specially left upper quadrant) Auscultation: normal bowel sounds Objective Data Vital Signs Vital Signs: Vital Signs - 24 hr 02/12/22 12:54 02/12/22 14:09 02/12/22 16:00 Temperature 36.9 C Pulse Rate 73 68 71 Respiratory Rate 18 18 16 Blood Pressure 118/50 L 106/50 L 115/49 L Pulse Oximetry 100 97 99 Oxygen Delivery 02/12/22 16:00 02/12/22 16:00 02/12/22 18:00 Temperature Pulse Rate 65 74 Respiratory Rate Blood Pressure Pulse Oximetry 100 Oxygen Delivery Room Air 02/12/22 18:00 02/12/22 20:00 02/12/22 20:00 Temperature Pulse Rate 74 67 67 Respiratory Rate 20 20 Blood Pressure 114/40 L Pulse Oximetry 99 99 Oxygen Delivery Room Air 02/12/22 20:00 02/12/22 22:00 02/12/22 22:00 Temperature 36.8 C Pulse Rate 67 69 68 Respiratory Rate 21 H 20 Blood Pressure 109/41 L 105/46 L Pulse Oximetry 99 99 Oxygen Delivery 02/12/22 22:23 02/13/22 00:00 02/13/22 00:00 Temperature 36.8 C Pulse Rate 70 81 81 Respiratory Rate 20 20 Blood Pressure 134/64 Pulse Oximetry 98 98 98 Oxygen Delivery Room Air Room Air 02/13/22 00:00 02/13/22 02:00 02/13/22 02:00 Temperature Pulse Rate 69 68 67 Respiratory Rate 15 Blood Pressure 98/43 L Pulse Oximetry 95 Oxygen Delivery 02/13/22 04:00 02/13/22 04:00 02/13/22 04:00 Temperature 36.6 C Pulse Rate 61 61 61 Respiratory Rate 15 12 Blood Pressure 92/44 L Pulse Oximetry 95 97 Oxygen Delivery Room Air 02/13/22 08:00 02/13/22 09:23 02/13/22 08:00 Temperature 37.0 C Pulse Rate 78 93 Respiratory Rate Blood Pressure 158/58 H Pulse Oximetry 97 97 Oxygen Delivery Room Air 02/13/22 08:00 02/13/22 10:00 Temperature Pulse Rate 74 Respiratory Rate Blood Pressure 107/87 Pulse Oximetry 97 99 Oxygen Delivery Room Air Intake/Output Intake/Output: Intake & Output 02/10/22 02/11/22 02/12/22 02/13/22 23:59 23:59 23:59 23:59 Intake Total 1460 Output Total 650 Balance 810 Meds/Results Medications: Active Medications Generic Name Dose Route Start Last Admin Trade Name Freq PRN Reason Stop Dose Admin Albuterol 2 puff 02/12/22 15:11 Albuterol Sulfate (*Sp) Aerosol 1 Puff INHALATION Q6HRT PRN
--- NOTE | 2022-02-13 13:40 | PC.NURSE ---
This patient, Lisa Tovar, was transferred to [240 ] on 02/13/22 at 1340. Personal belongings sent with patient. Report given to [TAWNYA Moreland @ 0065 ]. Appropriate documentation sent with patient.
--- NOTE | 2022-02-13 13:53 | PC.NURSE ---
Patient transfer received from ICU 11 to room 240. Patient oriented to the room.
--- NOTE | 2022-02-13 14:09 | WPDGIPROGNO ---
Progress Note: A&P Assessment and Plan (1) Spleen laceration: Code(s): S36.039A - Unspecified laceration of spleen, initial encounter Status: Acute Assessment and Plan: h/h stable, abdominal exam with less tenderness, no rebound and she is hemodynamically stable (2) Acute blood loss anemia: Code(s): D62 - Acute posthemorrhagic anemia Status: Acute Assessment and Plan: stable, no signs of more bleeding (3) Hemoperitoneum: Code(s): K66.1 - Hemoperitoneum Status: Acute Assessment and Plan: stable, from spleen laceration will be moved to regular floor Subjective Date/time seen: 02/13/22 14:09 Interval history: she is doing well, less pain and not requiring anymore iv narcotics, tolerating diet. Family member at bedside. Review of Systems Review of Systems: All systems reviewed & are unremarkable except as noted in HPI and below Exam Const: General: cooperative, comfortable, no acute distress, alert, awake and thin Orientation/consciousness: patient oriented x3 HENMT: Face/Nose/Sinus: Normal nares present Eyes: General: appearance normal, both eyes and all related structures Neck: Neck: supple Resp: Auscultation: clear to auscultation bilaterally Cardio: Rate: regular rate GI: Inspection: normal to inspection, non-distended and scaphoid GI Palp: Yes Soft to palpation and Yes Tenderness to palpation present (GI) ( less tender today, specially left upper quadrant) Auscultation: normal bowel sounds Skin: General skin exam: normal color Neuro: Speech: normal speech Extrem: General: normal to inspection Psych: Mental Status: mental status grossly normal Objective Data Vital Signs Vital Signs: Vital Signs - 24 hr 02/12/22 16:00 02/12/22 16:00 02/12/22 16:00 Temperature 98.4 F Pulse Rate 71 65 Respiratory Rate 16 Blood Pressure 115/49 L Pulse Oximetry 99 100 Oxygen Delivery Room Air 02/12/22 18:00 02/12/22 18:00 02/12/22 20:00 Temperature Pulse Rate 74 74 67 Respiratory Rate 20 Blood Pressure 114/40 L Pulse Oximetry 99 Oxygen Delivery 02/12/22 20:00 02/12/22 20:00 02/12/22 22:00 Temperature 98.3 F Pulse Rate 67 67 69 Respiratory Rate 20 21 H Blood Pressure 109/41 L Pulse Oximetry 99 99 Oxygen Delivery Room Air 02/12/22 22:00 02/12/22 22:23 02/13/22 00:00 Temperature 98.3 F Pulse Rate 68 70 81 Respiratory Rate 20 20 Blood Pressure 105/46 L 134/64 Pulse Oximetry 99 98 98 Oxygen Delivery Room Air 02/13/22 00:00 02/13/22 00:00 02/13/22 02:00 Temperature Pulse Rate 81 69 68 Respiratory Rate 20 15 Blood Pressure 98/43 L Pulse Oximetry 98 95 Oxygen Delivery Room Air 02/13/22 02:00 02/13/22 04:00 02/13/22 04:00 Temperature Pulse Rate 67 61 61 Respiratory Rate 15 Blood Pressure Pulse Oximetry 95 Oxygen Delivery Room Air 02/13/22 04:00 02/13/22 08:00 02/13/22 09:23 Temperature 98 F 98.6 F Pulse Rate 61 78 Respiratory Rate 12 Blood Pressure 92/44 L 158/58 H Pulse Oximetry 97 97 97 Oxygen Delivery Room Air 02/13/22 08:00 02/13/22 08:00 02/13/22 10:00 Temperature Pulse Rate 93 74 Respiratory Rate Blood Pressure 107/87 Pulse Oximetry 97 99 Oxygen Delivery Room Air 02/13/22 12:00 Temperature Pulse Rate 72 Respiratory Rate Blood Pressure Pulse Oximetry Oxygen Delivery Intake/Output Intake/Output: Intake & Output 02/10/22 02/11/22 02/12/22 02/13/22 23:59 23:59 23:59 23:59 Intake Total 1460 360 Output Total 650 Balance 810 360 Meds/Results Medications: Active Medications Generic Name Dose Route Start Last Admin Trade Name Freq PRN Reason Stop Dose Admin Albuterol 2 puff 02/12/22 15:11 Albuterol Sulfate (*Sp) Aerosol 1 Puff INHALATION Q6HRT PRN Shortness Of Breath Albuterol 2 puff 02/13/22 00:02 Albuterol Sulfate (*Sp) Aerosol 1 Puff INHALATION Q6H P
[2022-02-13 16:20] LABS: Hematocrit 29.6 % (37.0-47.0); Hemoglobin 9.8 g/dL (12.0-15.0)
--- NOTE | 2022-02-13 17:10 | PM.IMPN ---
Progress Note: A&P Assessment and Plan (1) Spleen laceration: Code(s): S36.039A - Unspecified laceration of spleen, initial encounter Status: Acute (2) Hemoperitoneum: Code(s): K66.1 - Hemoperitoneum Status: Acute (3) Hyponatremia: Code(s): E87.1 - Hypo-osmolality and hyponatremia Status: Acute (4) Acute blood loss anemia: Code(s): D62 - Acute posthemorrhagic anemia Status: Acute (5) Asthma: Qualifiers: Asthma severity: mild Asthma persistence: intermittent Asthma complication type: uncomplicated Qualified Code(s): J45.20 - Mild intermittent asthma, uncomplicated Code(s): J45.909 - Unspecified asthma, uncomplicated Status: Acute (6) Hypertension: Qualifiers: Hypertension type: essential hypertension Qualified Code(s): I10 - Essential (primary) hypertension Code(s): I10 - Essential (primary) hypertension Status: Acute Plan The patient presented to the emergency department from home for evaluation of left-sided pain following colonoscopy yesterday. Imaging shows a mild splenic laceration with hemoperitoneum on she has been admitted to ICU for close monitoring. Hemoglobin was 11.5 on arrival and dropped 1 gram since that time but has remained stable over the last several hours. She reports that her pain is quite a bit better and was able to tolerate a clear liquid diet this evening. Sodium was low at 127 and thus far she has had about 1500 mL of IV fluids. BMP will be repeated this evening to ensure it is correcting appropriately. Hemoglobin and hematocrit will also be trended. Her blood pressures have been stable though on the lower end of normal thus will hold her antihypertensives for now. Asthma is well controlled without acute issue. The rest of her home medications will be reviewed and resumed as appropriate. 02/13/22 17:10 patient 82-year-old female status post EGD and colonoscopy 02/11, and patient was discharged patient presented emergency department with complaint left-sided abdominal pain upper and lower quadrant on 02/12, upon arrival CT scan of the abdomen showed laceration spleen and bleeding, patient was admitted ICU for observation today again patient was seen surgery service and today repeat CT scan of abdomen with IV contrast showed no bleeding of blush. patient states her pain has improved and serial hemoglobin stable, patient is clinically stable continue to monitor and further recommendation to follow. Subjective Date/time seen: 02/13/22 17:10 patient 82-year-old female status post EGD and colonoscopy 02/11, and patient was discharged patient presented emergency department with complaint left-sided abdominal pain upper and lower quadrant on 02/12, upon arrival CT scan of the abdomen showed laceration spleen and bleeding, patient was admitted ICU for observation today again patient was seen surgery service and today repeat CT scan of abdomen with IV contrast showed no bleeding of blush. patient states her pain has improved and serial hemoglobin stable, patient is clinically stable continue to monitor and further recommendation to follow. Review of Systems Review of Systems: All systems reviewed & are unremarkable except as noted in HPI and below Exam Narrative: Patient is comfortable, NAD HEENT: eyes are clear and none icteric LUNGS: normal respiratory effort ABD: not distended Lower extremities: no edema SKIN: nonjaundiced Neuro: grossly intact. Objective Data Vital Signs Vital Signs: Vital Signs - 24 hr 02/12/22 18:00 02/12/22 18:00 02/12/22 20:00 Temperature Pulse Rate 74 74 67 Respiratory Rate 20 Blood Pressure 114/40 L Pulse Oximetry 99 Oxygen Delivery 02/12/22 20:00 02/12/22 20:00 02/12/22 22:00 Temperature 98.3 F Pulse Rate 67 67 69 Respiratory Rate 20 21 H Blood Pressure 109/41 L Pulse Oximetry 99 99 Oxygen Delivery Room Air 02/12/22 22:0
[2022-02-14] VITALS (8 sets, daily range): BP systolic 133–147; BP diastolic 58–67; PULSE 71–87; RESP 18–20; TEMP 36.3–36.7; O2SAT 96–98
[2022-02-14 03:45] LABS: Hematocrit 27.6 % (37.0-47.0); Hemoglobin 9.3 g/dL (12.0-15.0); Mean Corpuscular HGB Conc 33.7 g/dl (32-36); Mean Corpuscular Volume 94.8 fl (80-100); Mean Platelet Volume 10.2 fl (7.4-10.4); Platelet Count Result 191 k/mm3 (150-375); Red Blood Count 2.91 M/mm3 (4.2-5.4); Red Cell Distribution Width 13.5 % (11.5-14.5); White Blood Count 7.1 K/mm3 (4.5-10.0)
[2022-02-14 03:55] LABS: Alanine Aminotransferase 16 U/L (6-35); Albumin Level 2.9 g/dL (3.5-5.1); Alkaline Phosphatase 77 U/L (38-126); Anion Gap 3 mmol/L (8-16); Aspartate Amino Transferase 25 U/L (14-36); Bilirubin,Total 0.7 mg/dL (0.2-1.3); Blood Urea Nitrogen 9 mg/dL (7-17); Calcium 7.7 mg/dL (8.4-10.2); Carbon Dioxide 26 mmol/L (22-30); Chloride 103 mmol/L (98-107); Estimated CRCL calculation 43 ml/min; Estimated Glomerular Filt Rate 60; Glucose 90 mg/dL (65-110); Magnesium 1.9 mg/dL (1.6-2.3); Sodium 132 mmol/L (137-145)
[2022-02-14] MEDS: FLUTICASONE PROP 44 MCG (*SP) 10.6 GM 2 PUFF INHALATION (08:25)
[2022-02-14] MEDS: cycloSPORINE 0.4 ML OPHTH SOLUTION 1 DROP EACH EYE (09:29)
[2022-02-14] MEDS: CITALOPRAM HYDROBROMIDE 20 MG TABLET PO (09:29)
[2022-02-14] MEDS: PANTOPRAZOLE 40 MG TABLET PO (09:29)
--- NOTE | 2022-02-14 12:16 | PC.NURSE ---
On 02/14/22, the student, [Jazmin Bills], provided care and completed [facility] documentation on this patient. I have reviewed the student's documentation and agree with the findings.
--- NOTE | 2022-02-14 13:42 | WPDGIPROGNO ---
Progress Note: A&P Assessment and Plan (1) Spleen laceration: Code(s): S36.039A - Unspecified laceration of spleen, initial encounter Status: Acute Assessment and Plan: h/h stable, pain almost gone and doing better tolerating diet (2) Acute blood loss anemia: Code(s): D62 - Acute posthemorrhagic anemia Status: Acute Assessment and Plan: stable, no signs of more bleeding (3) Hemoperitoneum: Code(s): K66.1 - Hemoperitoneum Status: Acute Assessment and Plan: stable, from spleen laceration home hopefully soon she has been on bed rest Subjective Date/time seen: 02/14/22 13:42 Interval history: pain has improved significantly, she is quite comfortable and h/h stable. Earlier had bladder retention and needed cath Review of Systems Review of Systems: All systems reviewed & are unremarkable except as noted in HPI and below Exam Const: General: cooperative, comfortable, no acute distress, alert, awake and thin Orientation/consciousness: patient oriented x3 HENMT: Face/Nose/Sinus: Normal nares present Eyes: General: appearance normal, both eyes and all related structures Neck: Neck: supple Resp: Auscultation: clear to auscultation bilaterally Cardio: Rate: regular rate GI: Inspection: normal to inspection, non-distended and scaphoid GI Palp: Yes Soft to palpation and Yes Tenderness to palpation present (GI) ( only minimal, no rebound, no guarding) Auscultation: normal bowel sounds Skin: General skin exam: normal color Neuro: Speech: normal speech Extrem: General: normal to inspection Psych: Mental Status: mental status grossly normal Objective Data Vital Signs Vital Signs: Vital Signs - 24 hr 02/13/22 16:00 02/13/22 20:21 02/13/22 21:46 Temperature 97.5 F L Pulse Rate 73 77 Respiratory Rate 18 Blood Pressure 125/55 L Pulse Oximetry 99 96 Oxygen Delivery Room Air 02/13/22 20:00 02/13/22 20:00 02/14/22 03:50 Temperature 97.6 F Pulse Rate 81 76 Respiratory Rate 18 Blood Pressure 133/58 L Pulse Oximetry 98 Oxygen Delivery Room Air 02/14/22 00:00 02/14/22 04:00 02/14/22 08:00 Temperature Pulse Rate 77 77 Respiratory Rate Blood Pressure Pulse Oximetry Oxygen Delivery Room Air Intake/Output Intake/Output: Intake & Output 02/11/22 02/12/22 02/13/22 02/14/22 23:59 23:59 23:59 23:59 Intake Total 1460 1100 770 Output Total 928 468 3719 Balance 810 700 -930 Meds/Results Medications: Active Medications Generic Name Dose Route Start Last Admin Trade Name Freq PRN Reason Stop Dose Admin Albuterol 2 puff 02/12/22 15:11 Albuterol Sulfate (*Sp) Aerosol 1 Puff INHALATION Q6HRT PRN Shortness Of Breath Albuterol 2 puff 02/13/22 00:02 Albuterol Sulfate (*Sp) Aerosol 1 Puff INHALATION Q6H PRN Wheezing Citalopram Hydrobromide 20 mg 02/13/22 09:00 02/14/22 09:29 Citalopram Hydrobromide 20 Mg Tablet PO 20 mg DAILY RASHMI Administration Clonazepam 0.5 mg 02/13/22 21:00 02/13/22 20:25 Clonazepam (*Crx) 0.5 Mg Tablet PO 0.5 mg HS RASHMI Administration Cyclosporine 1 drop 02/13/22 09:00 02/14/22 09:29 Cyclosporine 0.4 Ml Ophth Solution EACH EYE 1 drop DAILY RASHMI Administration Fluticasone Propionate 1 spray 02/13/22 00:02 Fluticasone Propionate 0.05% Na Spr 16 Gm Btl (*Bkc) NASAL DAILY PRN Allergy Symptoms Fluticasone Propionate 2 puff 02/13/22 08:00 02/14/22 08:25 Fluticasone Prop 44 Mcg (*Sp) 10.6 Gm INHALATION 2 puff Q12HRT RASHMI Administration Morphine Sulfate 2 mg 02/12/22 14:43 Morphine Sulfate (*Crx) 2 Mg/Ml Inj IV PUSH Q2H PRN Pain Rated 7-10 Ondansetron HCl 4 mg 02/12/22 13:14 Ondansetron Inj 4 Mg/2 Ml Vial IV PUSH Q4H PRN Nausea Pantoprazole Sodium 40 mg 02/13/22 09:00 02/14/22 09:29 Pantoprazole 40 Mg Tablet PO 40 mg QAM RASHMI Administration
--- NOTE | 2022-02-14 15:21 | WPDURCON ---
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 She understands the need for this and we discussed a neurogenic bladder and her diagnosis of this in 2020 after Urodynamics. She declined to learn self catheterization at that time. We will f/u in one week in the office to do a voiding trial, as she has always emptied <300cc and there hasn't been a need for a alf catheter. No further evaluation at this time. Urology Consult Note HPI Date Seen: 02/14/22 Time Seen: 12:00 Requesting Physician: Paul Umana MD Primary Care Provider: Evangelista Carlson MD Consult Narrative Reason for consult: Retention Narrative: Lisa Tovar is a 82 year old female who presented to the hospital for left sided abdominal pain s/p one day after colonoscopy and EGD. She was found to have a spleen laceration. Incidentally she developed urinary retention while hospitalized and her PVR today was 786cc, after a straight catheterization of 850cc d/t abdominal pain and bladder distention she feels much better at this time. She states that she has had symptoms of incomplete emptying for years. She is a patient of myself and Dr. Kasper. She has had a urodynamic study in the office as of 03/23/2019 which showed an neurogenic bladder however she declined to learn self catheterization at that time and understood the risk of renal failure. She instead developed chronic UTI's which has cleared with antibiotic prophylaxis. A cystoscopy was done in the office with Dr. Neal on 09/02/21 which was normal. She as no urinary tract symptoms at this time. She has a normal creatinine of 0.90. Review of Systems Cardiovascular: Cardiovascular: Denies chest pain Respiratory: Respiratory: Reports no additional respiratory complaints Gastrointestinal: Gastrointestinal: Reports abdominal pain, Denies nausea and Denies vomiting Genitourinary: Genitourinary: Denies hematuria, Denies nocturia, Denies dysuria, Denies pelvic pain, Denies flank pain, Denies urinary incontinence, Reports urinary hesitancy and Denies urinary urgency [facility] Past Medical History Medical History (Updated 02/14/22 @ 15:26 by Lilliana Leiva APRN) Asthma Constipation Frequent UTI GERD without esophagitis Hypertension Memory loss Mild persistent asthma without complication Moderate single current episode of major depressive disorder Presbycusis, bilateral Pure hypercholesterolemia Unsteady gait Surgical History Surgical History History of cholecystectomy History of tubal ligation Family History Family History Father Family history of transient ischemic attacks Patient's father is Cerebrovascular accident, Onset Age: 77 Sibling Family history of chronic obstructive pulmonary disease Family history of lung cancer Patient's brother is Mother Family history of transient ischemic attacks, Onset Age: 91 Other Family history of schizophrenia Social History Social History (Updated 02/12/22 @ 23:57 by Isabel Reynolds PA-C) Social History: Surrogate medical decision maker: Che Field or Steffany Leeann, daughters. Code status: Full code. Smoking packs per day: 1.5 Smoking cigarettes per day: 30.0 Years smoked: 5 Smoking pack-years: 7.50 Smoking status: Former smoker Tobacco type: cigarettes Second hand tobacco smoke exposure: No Smoking end date: 03/09/87 Alcohol intake: former Substance use: never Substance use type: does not use Lack of Transportation: No Lack of Food: Never True Current Housing: I Have [facility]
--- NOTE | 2022-02-14 16:41 | PM.PNGS ---
Progress Note: A&P Assessment and Plan (1) Spleen laceration: Code(s): S36.039A - Unspecified laceration of spleen, initial encounter Status: Acute Assessment and Plan: tolerating oral intake well. No bowel movement as yet. Okay to be up in the chair and walk to the bathroom but still should spend most of her time in bed. Discussed with patient and her daughter. (2) Acute blood loss anemia: Code(s): D62 - Acute posthemorrhagic anemia Status: Acute Assessment and Plan: Anemic but stable. Doubt there is any ongoing bleeding Subjective Subjective Date/Time Seen: 02/14/22 16:41 Patient reports: feels better, pain is less, flatus, no bowel movement and afebrile Review of Systems Review of Systems: All systems reviewed & are unremarkable except as noted in HPI and below (HPI and those items noted below) Constitutional: Constitutional: Denies chills and Denies fever(s) Cardiovascular: Cardiovascular: Denies chest pain, Denies diaphoresis, Denies dyspnea and Denies paroxysmal nocturnal dyspnea Respiratory: Respiratory: Denies chest congestion, Denies cough and Denies dyspnea Integumentary/Breasts: Skin/Breast: Denies lesions and Denies rash Exam Const: General: comfortable and no acute distress; No confusion Orientation/consciousness: patient oriented x3 and No confusion GI: Inspection: normal to inspection and non-distended GI Palp: Yes Soft to palpation, Yes Tenderness to palpation present (GI) ( mostly left upper quadrant), No Guarding due to palpation present (GI), No Palpable mass present and No Rebound tenderness present Auscultation: normal bowel sounds Neuro: General: patient oriented x3, no focal motor deficits and No confusion Extrem: General: no calf tenderness and no edema Psych: Affect: normal affect Insight: Good insight present (Psych) Judgement: Good judgement present (Psych) Objective Data Vital Signs Vital Signs: Vital Signs - 24 hr 02/13/22 20:21 02/13/22 21:46 02/13/22 20:00 Temperature 36.4 C L Pulse Rate 77 Respiratory Rate 18 Blood Pressure 125/55 L Pulse Oximetry 99 96 Oxygen Delivery Room Air Room Air 02/13/22 20:00 02/14/22 03:50 02/14/22 00:00 Temperature 36.4 C Pulse Rate 81 76 77 Respiratory Rate 18 Blood Pressure 133/58 L Pulse Oximetry 98 Oxygen Delivery 02/14/22 04:00 02/14/22 08:00 02/14/22 14:00 Temperature 36.3 C L Pulse Rate 77 87 Respiratory Rate 18 Blood Pressure 147/67 H Pulse Oximetry 96 Oxygen Delivery Room Air Intake/Output Intake/Output: Intake & Output 02/11/22 02/12/22 02/13/22 02/14/22 23:59 23:59 23:59 23:59 Intake Total 1460 1100 770 Output Total 559 542 8749 Balance 810 700 -930 Meds/Results Medications: Active Medications Generic Name Dose Route Start Last Admin Trade Name Freq PRN Reason Stop Dose Admin Albuterol 2 puff 02/12/22 15:11 Albuterol Sulfate (*Sp) Aerosol 1 Puff INHALATION Q6HRT PRN Shortness Of Breath Albuterol 2 puff 02/13/22 00:02 Albuterol Sulfate (*Sp) Aerosol 1 Puff INHALATION Q6H PRN Wheezing Citalopram Hydrobromide 20 mg 02/13/22 09:00 02/14/22 09:29 Citalopram Hydrobromide 20 Mg Tablet PO 20 mg DAILY RASHMI Administration Clonazepam 0.5 mg 02/13/22 21:00 02/13/22 20:25 Clonazepam (*Crx) 0.5 Mg Tablet PO 0.5 mg HS RASHMI Administration Cyclosporine 1 drop 02/13/22 09:00 02/14/22 09:29 Cyclosporine 0.4 Ml Ophth Solution EACH EYE 1 drop DAILY RASHMI Administration Fluticasone Propionate 1 spray 02/13/22 00:02 Fluticasone Propionate 0.05% Na Spr 16 Gm Btl (*Bkc) NASAL DAILY PRN Allergy Symptoms Fluticasone Propionate 2 puff 02/13/22 08:00 02/14/22 08:25 Fluticasone Prop 44 Mcg (*Sp) 10.6 Gm INHALATION 2 puff Q12HRT RASHMI Administration Morphine Sulfate 2 mg 02/12/22 14:43 Morphine Sulfate (*Crx) 2 Mg/Ml Inj IV PUSH Q2H PRN
--- NOTE | 2022-02-14 17:06 | PM.IMPN ---
Progress Note: A&P Assessment and Plan (1) Spleen laceration: Code(s): S36.039A - Unspecified laceration of spleen, initial encounter Status: Acute (2) Hemoperitoneum: Code(s): K66.1 - Hemoperitoneum Status: Acute (3) Hyponatremia: Code(s): E87.1 - Hypo-osmolality and hyponatremia Status: Acute (4) Acute blood loss anemia: Code(s): D62 - Acute posthemorrhagic anemia Status: Acute (5) Asthma: Qualifiers: Asthma severity: mild Asthma persistence: intermittent Asthma complication type: uncomplicated Qualified Code(s): J45.20 - Mild intermittent asthma, uncomplicated Code(s): J45.909 - Unspecified asthma, uncomplicated Status: Acute (6) Hypertension: Qualifiers: Hypertension type: essential hypertension Qualified Code(s): I10 - Essential (primary) hypertension Code(s): I10 - Essential (primary) hypertension Status: Acute Plan The patient presented to the emergency department from home for evaluation of left-sided pain following colonoscopy yesterday. Imaging shows a mild splenic laceration with hemoperitoneum on she has been admitted to ICU for close monitoring. Hemoglobin was 11.5 on arrival and dropped 1 gram since that time but has remained stable over the last several hours. She reports that her pain is quite a bit better and was able to tolerate a clear liquid diet this evening. Sodium was low at 127 and thus far she has had about 1500 mL of IV fluids. BMP will be repeated this evening to ensure it is correcting appropriately. Hemoglobin and hematocrit will also be trended. Her blood pressures have been stable though on the lower end of normal thus will hold her antihypertensives for now. Asthma is well controlled without acute issue. The rest of her home medications will be reviewed and resumed as appropriate. 02/14/22 interval history: patient 82-year-old female status post EGD and colonoscopy 02/11, and patient was discharged patient presented emergency department with complaint left-sided abdominal pain upper and lower quadrant on 02/12, upon arrival CT scan of the abdomen showed laceration spleen and bleeding, patient was admitted ICU for observation today again patient was seen surgery service and today repeat CT scan of abdomen with IV contrast showed no bleeding of blush. patient states her pain has improved and serial hemoglobin stable, today seen by general surgeon, No BM yet, patient may sit in the chair and walk to bathroom otherwise bedrest, patient has history of neurogenic bladder and urinary retension, seen by urologist and place Wilkinson cath and follow up in 1 week in the clinic for avoiding trial, patient is clinically stable continue to monitor and further recommendation to follow. Subjective Date/time seen: 02/14/22 17:06 The patient presented to the emergency department from home for evaluation of left-sided pain following colonoscopy yesterday. Imaging shows a mild splenic laceration with hemoperitoneum on she has been admitted to ICU for close monitoring. Hemoglobin was 11.5 on arrival and dropped 1 gram since that time but has remained stable over the last several hours. She reports that her pain is quite a bit better and was able to tolerate a clear liquid diet this evening. Sodium was low at 127 and thus far she has had about 1500 mL of IV fluids. BMP will be repeated this evening to ensure it is correcting appropriately. Hemoglobin and hematocrit will also be trended. Her blood pressures have been stable though on the lower end of normal thus will hold her antihypertensives for now. Asthma is well controlled without acute issue. The rest of her home medications will be reviewed and resumed as appropriate. 02/14/22 interval history: patient 82-year-old female status post EGD and colonoscopy 02/11, and patient was discharged patient presented emergency department with complaint left-sided abdominal pain upper a
[2022-02-14] MEDS: clonazePAM (*CRX) 0.5 MG TABLET PO (20:18)
[2022-02-14] MEDS: TRIMETHOPRIM 100 MG TABLET PO (20:18)
[2022-02-15] VITALS: PULSE 82
[2022-02-15 04:00] VITALS: PULSE 76
[2022-02-15 05:32] VITALS: BP 145/57; PULSE 84; RESP 20; TEMP 36.6; O2SAT 97
[2022-02-15 06:20] LABS: Hematocrit 29.8 % (37.0-47.0); Hemoglobin 9.9 g/dL (12.0-15.0); Mean Corpuscular HGB Conc 33.2 g/dl (32-36); Mean Corpuscular Hemoglobin 31.5 pg (26-34); Mean Corpuscular Volume 94.9 fl (80-100); Mean Platelet Volume 11.2 fl (7.4-10.4); Platelet Count Result 198 k/mm3 (150-375); Red Blood Count 3.14 M/mm3 (4.2-5.4); Red Cell Distribution Width 13.7 % (11.5-14.5)
[2022-02-15 06:33] LABS: Alanine Aminotransferase 15 U/L (6-35); Albumin Level 3.1 g/dL (3.5-5.1); Alkaline Phosphatase 89 U/L (38-126); Anion Gap 4 mmol/L (8-16); Aspartate Amino Transferase 25 U/L (14-36); Blood Urea Nitrogen 11 mg/dL (7-17); Calcium 8.1 mg/dL (8.4-10.2); Carbon Dioxide 28 mmol/L (22-30); Chloride 102 mmol/L (98-107); Estimated CRCL calculation 37 ml/min; Estimated Glomerular Filt Rate 60; Glucose 94 mg/dL (65-110); Magnesium 2.1 mg/dL (1.6-2.3); Potassium 3.5 mmol/L (3.4-5.0); Sodium 134 mmol/L (137-145)
[2022-02-15 08:00] VITALS: PULSE 84
[2022-02-15] MEDS: PANTOPRAZOLE 40 MG TABLET PO (08:22)
[2022-02-15] MEDS: CITALOPRAM HYDROBROMIDE 20 MG TABLET PO (08:22)
[2022-02-15] MEDS: cycloSPORINE 0.4 ML OPHTH SOLUTION 1 DROP EACH EYE (08:24)
[2022-02-15 12:00] VITALS: PULSE 99
[2022-02-15] MEDS: FLUTICASONE PROP 44 MCG (*SP) 10.6 GM 2 PUFF INHALATION (12:04)
--- NOTE | 2022-02-15 12:35 | PM.DS ---
DS: Admitting Diagnosis Discharge Date 02/15/2022 Admitting Diagnosis Abdominal pain. DS: Discharge Diagnosis Discharge Diagnosis (1) Spleen laceration: Code(s): S36.039A - Unspecified laceration of spleen, initial encounter Status: Acute (2) Hemoperitoneum: Code(s): K66.1 - Hemoperitoneum Status: Acute (3) Hyponatremia: Code(s): E87.1 - Hypo-osmolality and hyponatremia Status: Acute (4) Acute blood loss anemia: Code(s): D62 - Acute posthemorrhagic anemia Status: Acute (5) Asthma: Qualifiers: Asthma severity: mild Asthma persistence: intermittent Asthma complication type: uncomplicated Qualified Code(s): J45.20 - Mild intermittent asthma, uncomplicated Code(s): J45.909 - Unspecified asthma, uncomplicated Status: Acute (6) Hypertension: Qualifiers: Hypertension type: essential hypertension Qualified Code(s): I10 - Essential (primary) hypertension Code(s): I10 - Essential (primary) hypertension Status: Acute Plan The patient presented to the emergency department from home for evaluation of left-sided pain following colonoscopy yesterday. Imaging shows a mild splenic laceration with hemoperitoneum on she has been admitted to ICU for close monitoring. Hemoglobin was 11.5 on arrival and dropped 1 gram since that time but has remained stable over the last several hours. She reports that her pain is quite a bit better and was able to tolerate a clear liquid diet this evening. Sodium was low at 127 and thus far she has had about 1500 mL of IV fluids. BMP will be repeated this evening to ensure it is correcting appropriately. Hemoglobin and hematocrit will also be trended. Her blood pressures have been stable though on the lower end of normal thus will hold her antihypertensives for now. Asthma is well controlled without acute issue. The rest of her home medications will be reviewed and resumed as appropriate. 02/14/22 interval history: patient 82-year-old female status post EGD and colonoscopy 02/11, and patient was discharged patient presented emergency department with complaint left-sided abdominal pain upper and lower quadrant on 02/12, upon arrival CT scan of the abdomen showed laceration spleen and bleeding, patient was admitted ICU for observation today again patient was seen surgery service and today repeat CT scan of abdomen with IV contrast showed no bleeding of blush. patient states her pain has improved and serial hemoglobin stable, today seen by general surgeon, Sara BM yet, patient may sit in the chair and walk to bathroom otherwise bedrest, patient has history of neurogenic bladder and urinary retension, seen by urologist and place Wilkinson cath and follow up in 1 week in the clinic for avoiding trial, patient is clinically stable continue to monitor and further recommendation to follow. DS: Summary Hospital Course Reason for hospitalization: Abdominal pain. Narrative: This is a pleasant 82-year-old female presented to the emergency department for evaluation of left-sided abdominal pain. She had a colonoscopy yesterday for evaluation of ongoing issues with constipation and she reports that she woke up from the procedure with pain on the left side. It has continued and has gotten increasingly worse as time has gone on.? She describes a sharp shooting pain that seems to radiate into the left arm. It is worse with movement, deep inspiration coughing, etc. and is somewhat improved with rest. CT of the abdomen and pelvis showed a mild anterolateral splenic laceration with moderate hemoperitoneum and she is being admitted in this setting for close monitoring and surgery consultation. Her vital signs and hemoglobin have remained stable in the last 12 hours since presentation. She denies trauma prior to the procedure. The time my evaluation she is feeling a bit better and she has no specific complaints aside from the fact that she has to ge
--- NOTE | 2022-02-15 13:20 | PM.PNGS ---
Progress Note: A&P Assessment and Plan (1) Spleen laceration: Code(s): S36.039A - Unspecified laceration of spleen, initial encounter Status: Acute Assessment and Plan: tolerating oral intake well. Okay with General surgery for discharge if doing well from medicine standpoint. Okay to be up in the chair and walk to the bathroom And around house. Home activity with gentle stretching, walking and going up and down steps with care were discussed with patient and her daughter. instructions for when to be concerned placed in discharge instructions for patient. (2) Acute blood loss anemia: Code(s): D62 - Acute posthemorrhagic anemia Status: Acute Assessment and Plan: Anemic but stable. Hemoglobin slightly up today and patient's vitals stable. Doubt there is any ongoing bleeding Subjective Subjective Date/Time Seen: 02/15/22 12:20 patient reports feeling well. She is tolerating a diet. Had some voiding problems and seen by Urology. Nurse reports no other problems with vital signs OR with activity. Review of Systems Review of Systems: All systems reviewed & are unremarkable except as noted in HPI and below (HPI and those items noted below) Constitutional: Constitutional: Denies chills and Denies fever(s) Cardiovascular: Cardiovascular: Denies chest pain, Denies diaphoresis, Denies dyspnea and Denies paroxysmal nocturnal dyspnea Respiratory: Respiratory: Denies chest congestion, Denies cough and Denies dyspnea Integumentary/Breasts: Skin/Breast: Denies lesions and Denies rash Exam Const: General: comfortable and no acute distress; No confusion Orientation/consciousness: patient oriented x3 and No confusion GI: Inspection: normal to inspection and non-distended GI Palp: Yes Soft to palpation, Yes Tenderness to palpation present (GI) ( mostly left upper quadrant), No Guarding due to palpation present (GI), No Palpable mass present and No Rebound tenderness present Auscultation: normal bowel sounds Neuro: General: patient oriented x3, no focal motor deficits and No confusion Extrem: General: no calf tenderness and no edema Objective Data Vital Signs Vital Signs: Vital Signs - 24 hr 02/14/22 14:00 02/14/22 16:00 02/14/22 20:00 Temperature 36.3 C L Pulse Rate 87 87 Respiratory Rate 18 Blood Pressure 147/67 H Pulse Oximetry 96 Oxygen Delivery Room Air 02/14/22 22:00 02/15/22 00:00 02/15/22 05:32 Temperature 36.7 C 36.6 C Pulse Rate 86 82 84 Respiratory Rate 20 20 Blood Pressure 141/65 H 145/57 H Pulse Oximetry 98 97 Oxygen Delivery 02/15/22 04:00 02/15/22 08:00 02/15/22 08:00 Temperature Pulse Rate 76 84 Respiratory Rate Blood Pressure Pulse Oximetry Oxygen Delivery Room Air 02/15/22 12:00 Temperature Pulse Rate 99 Respiratory Rate Blood Pressure Pulse Oximetry Oxygen Delivery Intake/Output Intake/Output: Intake & Output 02/12/22 02/13/22 02/14/22 02/15/22 23:59 23:59 23:59 23:59 Intake Total 1460 1100 1250 460 Output Total 731 060 9910 200 Balance 810 700 -450 260 Meds/Results Medications: Active Medications Generic Name Dose Route Start Last Admin Trade Name Freq PRN Reason Stop Dose Admin Albuterol 2 puff 02/12/22 15:11 Albuterol Sulfate (*Sp) Aerosol 1 Puff INHALATION Q6HRT PRN Shortness Of Breath Albuterol 2 puff 02/13/22 00:02 Albuterol Sulfate (*Sp) Aerosol 1 Puff INHALATION Q6H PRN Wheezing Citalopram Hydrobromide 20 mg 02/13/22 09:00 02/15/22 08:22 Citalopram Hydrobromide 20 Mg Tablet PO 20 mg DAILY RASHMI Administration Clonazepam 0.5 mg 02/13/22 21:00 02/14/22 20:18 Clonazepam (*Crx) 0.5 Mg Tablet PO 0.5 mg HS RASHMI Administration Cyclosporine 1 drop 02/13/22 09:00 02/15/22 08:24 Cyclosporine 0.4 Ml Ophth Solution EACH EYE 1 drop DAILY RASHMI Administration Fluticasone Propionate 1 spray 02/13/22 00:02
== END 2022-02-15 13:22 | disposition home or self-care (01) | DRG 919 ==
LOC: ANHED 12:14 → ANHICU 02-13 12:44 → ANH2MED 02-14 09:31 → ANHICU 02-17 14:14
PROVIDERS: Internal Medicine; Physician Assistant; Admitting Provider Internal Medicine; Emergency Provider Emergency Medicine; PCP Emergency Medicine; Visit Provider Family Medicine
DX: D78.12 Accidental puncture and laceration of the spleen during other procedure (principal); K66.1 Hemoperitoneum; D62 Acute posthemorrhagic anemia; E87.1 Hypo-osmolality and hyponatremia; I10 Essential (primary) hypertension; J45.909 Unspecified asthma, uncomplicated; E78.00 Pure hypercholesterolemia, unspecified; K21.9 Gastro-esophageal reflux disease without esophagitis; K57.30 Diverticulosis of large intestine without perforation or abscess without bleeding; K59.00 Constipation, unspecified; N31.2 Flaccid neuropathic bladder, not elsewhere classified; R33.9 Retention of urine, unspecified; H91.13 Presbycusis, bilateral; Y83.8 Other surgical procedures as the cause of abnormal reaction of the patient, or of later complication, without mention of misadventure at the time of the procedure; Z20.822 Contact with and (suspected) exposure to COVID-19; Z87.891 Personal history of nicotine dependence
CPT/HCPCS: 36415; 74177; 80048; 80053; 81001; 82948; 83605; 83690; 83735; 84100; 85014; 85018; 85025; 85027; 85610; 85730; 86850; 86900; 86901; 87077; 87086; 87186; 87636; 88305; 93005; 94640; 96361; 96374; 96375; 99285; A9270; C9113; J0131; J2270; J2405; J2704; J7030; J7120; Q9967

== ENCOUNTER 2022-04-03 06:47 | Outpatient (CLI) | payer MEDICARE, SELFPAY ==
[2022-04-03 07:28] LABS: Alanine Aminotransferase 21 U/L (6-35); Albumin Level 3.6 g/dL (3.5-5.1); Alkaline Phosphatase 97 U/L (38-126); Anion Gap 2 mmol/L (8-16); Aspartate Amino Transferase 28 U/L (14-36); Bilirubin,Total 0.6 mg/dL (0.2-1.3); Blood Urea Nitrogen 13 mg/dL (7-17); Calcium 8.7 mg/dL (8.4-10.2); Carbon Dioxide 31 mmol/L (22-30); Chloride 102 mmol/L (98-107); Cholesterol 219 mg/dL (0-200); Estimated Glomerular Filt Rate 47; Glucose 93 mg/dL (65-110); HDL Direct 54 mg/dL; Potassium 3.9 mmol/L (3.4-5.0); Sodium 135 mmol/L (137-145); Triglycerides 88 mg/dL (<150)
[2022-04-03 07:39] LABS: LDL Cholesterol Direct 114 mg/dL
[2022-04-06 12:32] LABS: Vitamin D 1,25 (OH)2 Total 39 pg/mL (18-72); Vitamin D2 1,25 (OH)2 <8 pg/mL; Vitamin D3 1,25 (OH)2 39 pg/mL
== END 2022-04-03 06:48 | disposition home or self-care (01) ==
LOC: ANHLAB 06:49
PROVIDERS: PCP Emergency Medicine; Visit Provider Emergency Medicine
DX: E55.9 Vitamin D deficiency, unspecified (principal); E78.5 Hyperlipidemia, unspecified
CPT/HCPCS: 36415; 80053; 80061; 82652

== ENCOUNTER 2022-05-28 11:02 | Outpatient (CLI) | payer MEDICARE, SELFPAY ==
--- NOTE | ~2022-05-28 | US_ITS ---
US venous doppler [facility] DATE: 05/28/2022 12:49 INDICATION: Edema of lower extremities for 2 weeks after flying on an airplane TECHNIQUE: Real-time and color flow imaging and Doppler analysis of the veins of both lower extremiti es COMPARISON: None FINDINGS: The greater saphenous veins are patent. There is spontaneous and phasic flow and normal aug mentation and color flow signal and normal compression of the deep veins of both lower extremities. IMPRESSION: No evidence of deep venous thrombosis of the lower extremities Reviewed, dictated and finalized at Location [facility]. Reviewed, dictated and finalized at location [facility].
[2022-05-28 12:35] LABS: Alanine Aminotransferase 58 U/L (6-35); Albumin Level 3.8 g/dL (3.5-5.1); Alkaline Phosphatase 114 U/L (38-126); Anion Gap 3 mmol/L (8-16); Aspartate Amino Transferase 72 U/L (14-36); Bilirubin,Total 0.9 mg/dL (0.2-1.3); Blood Urea Nitrogen 17 mg/dL (7-17); Calcium 9.2 mg/dL (8.4-10.2); Carbon Dioxide 31 mmol/L (22-30); Chloride 104 mmol/L (98-107); Estimated Glomerular Filt Rate 53; Glucose 92 mg/dL (65-110); Potassium 4.2 mmol/L (3.4-5.0); Sodium 138 mmol/L (137-145)
[2022-05-28 12:42] LABS: NT Pro B Type Natriuretic Pept 758 pg/mL (19.9-100)
== END 2022-05-28 11:03 | disposition home or self-care (01) ==
PROVIDERS: PCP Emergency Medicine; Visit Provider Emergency Medicine
DX: R60.9 Edema, unspecified (principal); R53.83 Other fatigue
CPT/HCPCS: 36415; 80053; 83880; 84443; 93970

== ENCOUNTER 2022-06-04 13:01 | Outpatient (CLI) | payer MEDICARE, SELFPAY ==
--- NOTE | 2022-06-04 13:10 | ECHO_ITS ---
Patient Info Name: Lisa Tovar Age: 82 years : 1940 Gender: Female Ht: 65 in Wt: 140 lbs BSA: 1.71 m2 HR: 100 bpm BP: 121 / 65 mmHg Technical Quality: Fair Exam Date: 06/04/2022 1:38 PM Exam Location: [facility] Patient Status: Outpatient Admit Date: 06/04/2022 Staff Ordering Physician: Evangelista Carlson MD Video Production Specialist: Vandana Bacon RDCS Attending Provider: Evangleista Carlson MD Referring Physician: Robyn CURTIS; Exam Type: CA echo doppler color flow Study Info Indications - EDEMA LE Complete two-dimensional, color flow and Doppler transthoracic echocardiogram is performed. Summary 1. Complete two-dimensional, color flow and Doppler transthoracic echocardiogram is performed. 2. Left ventricular chamber dimension is normal. 3. Left ventricular systolic function is normal, estimated at 60-65%. 4. The left ventricular diastolic function is grade I diastolic dysfunction. 5. E/e' 7 is not elevated. 6. There is mild aortic valve sclerosis. 7. There is trace tricuspid valve regurgitation. 8. No pulmonary hypertension, estimated pulmonary arterial systolic pressure is 32 mmHg. Left Ventricle E/e' 7 is not elevated. Left ventricular chamber dimension is normal. Left ventricular systolic function is normal, estimated at 60-65%. The left ventricular diastolic function is grade I diastolic dysfunction. Right Ventricle Right ventricular chamber dimension is normal. Right ventricular systolic function is normal. Left Atria Left atrial chamber dimension is normal. Right Atria Right atrial chamber dimension is normal. Aortic Valve The aortic valve is trileaflet. There is mild aortic valve sclerosis. There is no aortic valve stenosis. There is no aortic valve regurgitation. Pulmonic Valve There is no pulmonic regurgitation. Mitral Valve There is no mitral valve stenosis. There is no mitral valve regurgitation. Tricuspid Valve There is trace tricuspid valve regurgitation. No pulmonary hypertension, estimated pulmonary arterial systolic pressure is 32 mmHg. Pericardium/Pleural There is no pericardial effusion. Inferior Vena Cava Normal inferior vena cava with >50% collapse upon inspiration consistent with normal right atrial pressure, 5 mmHg. Aorta The aortic root size at the sinus of Valsalva is normal. Left Ventricular Outflow Tract Name Value Normal LVOT 2D LVOT Diameter 2.0 cm LVOT Doppler LVOT Peak Gradient 5 mmHg LVOT Mean Gradient 3 mmHg LVOT VTI 20 cm LVOT VTI/AV VTI Ratio 1.0 LVOT Stroke Volume 62 ml LVOT CO 14.6 l/min LVOT CI 8.6 l/min/m2 Pulmonic Valve Name Value Normal PV Doppler
--- NOTE | 2022-06-04 13:11 | ECG_ITS ---
Measurements Intervals [place] Rate: 98 P: 66 KS: 180 QRS: -62 QRSD: 138 T: 15 QT: 381 QTc: 487 Interpretive Statements SINUS RHYTHM RIGHT BUNDLE BRANCH BLOCK LEFT ANTERIOR FASCICULAR BLOCK BASELINE WANDER- I, II, III, AVR, AVL, AVF ABNORMAL ECG COMPARED TO ECG 02/12/2022 09:47:43 NO SIGNIFICANT CHANGES Electronically Signed On 06-04-2022 14:04:30 CDT by Armond Castaneda D.O.
== END 2022-06-04 13:02 | disposition home or self-care (01) ==
LOC: ANHCARD 13:02
PROVIDERS: PCP Emergency Medicine; Visit Provider Emergency Medicine
DX: R60.9 Edema, unspecified (principal); I45.2 Bifascicular block; I35.8 Other nonrheumatic aortic valve disorders
CPT/HCPCS: 93005; 93306

== ENCOUNTER 2022-06-11 12:14 | Outpatient (CLI) | payer MEDICARE, SELFPAY ==
--- NOTE | ~2022-06-11 | XR_ITS ---
EXAMINATION: XR hip LT min 2V INDICATION: Osteoarthritis of the hip TECHNIQUE: Two views of the left hip are obtained. COMPARISON: 02/22/2018 FINDINGS: There is mild osteoarthritis of the left hip. Bone alignment is normal. There is no fractur e. Calcified atherosclerosis is noted. There is a phlebolith of the left pelvis. IMPRESSION: 1. Mild osteoarthritis of the hip. Reviewed, dictated and finalized at location B.
== END 2022-06-11 12:15 | disposition home or self-care (01) ==
PROVIDERS: PCP Emergency Medicine; Visit Provider Emergency Medicine
DX: M16.0 Bilateral primary osteoarthritis of hip (principal)
CPT/HCPCS: 73502

== ENCOUNTER 2022-07-09 08:38 | Outpatient (CLI) | payer MEDICARE, SELFPAY ==
--- NOTE | ~2022-07-09 | XR_ITS ---
Clinical Indication: Shortness of breath PA and lateral views of the chest: Comparison: 09/01/2021 Findings: The lungs are clear, without evidence of focal consolidation or pleural effusion. Cardiome diastinal silhouette is within normal limits. Bones and soft tissues are unremarkable. Impression: Normal chest. Reviewed, dictated and finalized at location . Impression: Normal chest.
== END 2022-07-09 08:39 | disposition home or self-care (01) ==
PROVIDERS: PCP Emergency Medicine; Visit Provider Emergency Medicine
DX: R06.02 Shortness of breath (principal)
CPT/HCPCS: 71046

== ENCOUNTER 2022-08-05 13:30 | Outpatient (RCR) | payer MEDICARE, SELFPAY ==
--- NOTE | 2022-07-10 18:38 | PTOPEVAL1 ---
Assessment and note entered by Luiz Quarles, PT Evaluation Information Assessment Status Evaluation Diagnosis Left hip pain and restless leg syndrome on the RLE . Subjective Information Patient reports being inactive for awhile and it has caused pain in her legs. She reports she is not really walking outside anymore because she is afraid she will not be able to walk back if she goes any distance. Patient came to physical therapy 2 years ago and reports they fixed her then. Assessment PT Clinical Summary Jones is an 82 year old female coming into the clinic with L hip pain and self reported restless leg syndrome on the RLE. Patient has a positive scouring test on the L hip along with weakness in her SWETA hip abduction and extension along with SWETA knee flexion. Physical therapy will work on getting patient more active with stretching and strengthening along with a walking program to help reduce stiffness. Modalities and manual therapy as needed for pain control. Plan of Care Interventions Electrical Stimulation,Gait Training,Hot Pack/Cold Pack,Manual Therapy,Neuro Re-education,Patient/ Caregiver Education,Therapeutic Activities, Therapeutic Exercise,Ultrasound Other Interventions taping, cupping, IASTM PT Services Indicated Yes Treatment Frequency and 1-2x/wk for 4 weeks Duration These treatments will address the objective and functional deficits as defined above. The patient will be advanced safely and appropriately in order for the patient to progress towards his/her prior level of function. Additional exercises will be introduced and as well as a comprehensive home exercise program upon discharge, if needed, ?to ensure carryover of functional gains achieved in the clinic. This treatment plan has been reviewed and agreement upon by the patient.
--- NOTE | 2022-08-05 14:09 | PTOPDC ---
Assessment and note entered by Luiz Quarles, PT Evaluation Information Assessment Status Discharge Diagnosis Pain in R leg and Pain in L hip Subjective Information Patient reports no more pain with walking and the pain in the left hip is pretty well gone. She has pain in the R hip with sit to stands every time she is sitting for more than 30 minutes. Reports she is walking with her daughter multiple times a week. Reported Pain Level Pain Score 10: Self Report Additional Pain Score Comments Patient reports 10/10 with sit to stands a shooting pain that quickly goes down. Assessment PT Clinical Summary Jones is an 82 year old female coming into the clinic with L hip pain and R LE pain which she attributes to restless leg syndrome. She was evaluated on 07/09/22 and attended 7 appointments. She has met her functional, strength, and pain goals. Patient having increased issues with the R hip that were not there during the initial evaluation. Recommend further imaging of the R hip and back to rule out soft tissue injury or sciatica. Discharge from skilled physical therapy at this time to make sure physical therapy is not exacerbating the R hip issue. Plan of Care PT Services Indicated No
== END 2022-08-05 16:08 | disposition home or self-care (01) ==
LOC: ANHPT 13:30
PROVIDERS: PCP Emergency Medicine; Visit Provider Emergency Medicine
DX: M79.604 Pain in right leg (principal); M25.552 Pain in left hip
CPT/HCPCS: 97035; 97110; 97112; 97140; 97161; 97530

== ENCOUNTER 2022-08-21 09:51 | Outpatient (CLI) | payer MEDICARE, SELFPAY ==
--- NOTE | ~2022-08-21 | XR_ITS ---
XR knee RT 3V 08/21/2022 10:24 Indication: Right knee pain Procedure: 3 views right knee Comparison: No prior studies for comparison. Findings: There is chondrocalcinosis. 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 Osteopenia. No fracture or traumatic malalignment. No significant j oint effusion. Impression: 1: No acute bone or joint abnormality. Reviewed, dictated and finalized at location L. Impression: 1: No acute bone or joint abnormality.
--- NOTE | ~2022-08-21 | XR_ITS ---
XR hip RT min 2V 08/21/2022 10:24 Indication: Right hip pain Procedure: 2 views right hip Comparison: No prior studies for comparison. Findings: There is mild osteoarthritis of the right hip. No fracture, subluxation or dislocation. No significant soft tissue abnormality. No foreign body Impression: 1: Mild osteoarthritis of the right hip. Reviewed, dictated and finalized at location L. Impression: 1: Mild osteoarthritis of the right hip.
== END 2022-08-21 09:52 | disposition home or self-care (01) ==
PROVIDERS: PCP Emergency Medicine; Visit Provider Emergency Medicine
DX: M16.11 Unilateral primary osteoarthritis, right hip (principal); M25.561 Pain in right knee
CPT/HCPCS: 73502; 73562

== ENCOUNTER 2022-09-10 07:19 | Outpatient (CLI) | payer MEDICARE, SELFPAY ==
[2022-09-10 07:36] LABS: Hematocrit 38.6 % (37.0-47.0); Hemoglobin 12.9 g/dL (12.0-15.0); Mean Corpuscular HGB Conc 33.4 g/dl (32-36); Mean Corpuscular Hemoglobin 31.3 pg (26-34); Mean Corpuscular Volume 93.7 fl (80-100); Mean Platelet Volume 10.1 fl (7.4-10.4); Platelet Count Result 178 k/mm3 (150-375); Red Blood Count 4.12 M/mm3 (4.2-5.4); Red Cell Distribution Width 14.1 % (11.5-14.5); White Blood Count 6.2 K/mm3 (4.5-10.0)
[2022-09-10 07:45] LABS: Alanine Aminotransferase 24 U/L (6-35); Albumin Level 3.6 g/dL (3.5-5.1); Alkaline Phosphatase 89 U/L (38-126); Anion Gap 5 mmol/L (8-16); Aspartate Amino Transferase 30 U/L (14-36); Bilirubin,Total 0.6 mg/dL (0.2-1.3); Blood Urea Nitrogen 23 mg/dL (7-17); Calcium 8.9 mg/dL (8.4-10.2); Carbon Dioxide 31 mmol/L (22-30); Chloride 101 mmol/L (98-107); Cholesterol 182 mg/dL (0-200); Estimated Glomerular Filt Rate 43; Glucose 83 mg/dL (65-110); HDL Direct 44 mg/dL; Potassium 4.1 mmol/L (3.4-5.0); Sodium 137 mmol/L (137-145); Triglycerides 94 mg/dL (<150)
[2022-09-10 07:56] LABS: LDL Cholesterol Direct 106 mg/dL
[2022-09-10 08:14] LABS: Vitamin D 25 Hydroxy 75.4 ng/mL
[2022-09-12 23:19] LABS: Vitamin D 1,25 (OH)2 Total 43 pg/mL (18-72); Vitamin D2 1,25 (OH)2 <8 pg/mL; Vitamin D3 1,25 (OH)2 43 pg/mL
== END 2022-09-10 07:20 | disposition home or self-care (01) ==
PROVIDERS: PCP Emergency Medicine; Visit Provider Emergency Medicine
DX: E78.5 Hyperlipidemia, unspecified (principal); I10 Essential (primary) hypertension; E55.9 Vitamin D deficiency, unspecified
CPT/HCPCS: 36415; 80053; 80061; 82306; 82652; 85027

== ENCOUNTER 2022-09-22 13:10 | Outpatient (CLI) | payer MEDICARE, SELFPAY | END 2022-09-22 13:11 | disposition home or self-care (01) | LOC: ANHAUDASC 13:11 | PROVIDERS: PCP Emergency Medicine; Visit Provider Otolaryngology | DX: H91.93 Unspecified hearing loss, bilateral (principal) | CPT/HCPCS: 92557; 92567 ==

== ENCOUNTER 2022-11-11 18:57 | Emergency (ER) | payer MEDICARE, SELFPAY ==
--- NOTE | 2022-11-11 19:09 | ED.GENADULT ---
HPI - General Adult General Chief complaint: Extremity Problem,Nontraumatic Stated complaint: Numbness in left leg Source: patient, family and RN notes reviewed History of Present Illness HPI narrative: 82 yo F presents to urgent care with daughter at side. Pt presents with left leg numbness. Pt states this was first noticed when she woke up this morning. Pt states this feeling is a discomfort and denies pain in her leg. States the numbness is posterior, anterior, lateral, and medial. Pt states this discomfort goes from her hip to her ankle and that is gets better when she stands up. States it is worse when she sits or lies down. Denies any foot or toes being affected. Pt denies any lower back pain, calf pain, calf swelling, chest pain, SOB, fevers, or chills. Denies any FUENTES, face numbness, arm or hand numbness, dizziness, blurry vision, or vomiting. Denies any weakness. Related Data Home Medications Medication Instructions Recorded Confirmed beclomethasone dipropionate 80 See Rx Instructions .Route .COMPLEX 02/22/19 11/11/22 mcg/actuation aerosol inhaler calcium polycarbophil 625 mg 1,250 mg PO BID 02/22/19 11/11/22 tablet (FiberCon) [id number] 8 mg-folic 400 1 tablet PO DAILY 02/22/19 11/11/22 mcg-K 50 mcg-lutein 300 mcg tablet (Centrum Silver Women) PreserVision AREDS-2 1 tablet PO BID 02/12/22 11/11/22 biotin 2,500 mcg capsule 2,500 mcg PO DAILY 02/12/22 11/11/22 cyclosporine 0.05 % eye drops in a 1 drp EACH EYE DAILY 02/12/22 11/11/22 dropperette (Restasis) cetirizine 10 mg tablet 10 mg PO DAILY 09/16/22 11/11/22 cholecalciferol (vitamin D3) 250 250 mcg PO DAILY 09/16/22 11/11/22 mcg (10,000 unit) capsule gabapentin 100 mg capsule 100 mg PO TID 09/16/22 11/11/22 trimethoprim 100 mg tablet 100 mg PO DAILY 09/16/22 11/11/22 fluticasone furoate 100 2 inh inhalation DAILY 11/11/22 11/11/22 mcg-vilanterol 25 mcg/dose inhalation powder (Breo Ellipta) Allergies Allergy/AdvReac Type Severity Reaction Status Date / Time propoxyphene [From Darvon] Allergy Severe Swelling Verified 11/11/22 19:24 of Lip/Tongue/Throat Review of Systems Review of Systems: CONSTITUTIONAL: Denies fever, chills, or sweats. EYES: Denies visual changes, redness, or discharge. ENT: Denies otalgia and sore throat CARDIOVASCULAR: Denies chest pain, palpitations, or edema. RESPIRATORY: Denies cough or dyspnea. GASTROINTESTINAL: Denies abdominal pain, nausea, vomiting, or diarrhea. GENITOURINARY: Denies dysuria or hematuria. SKIN: Denies rash or itching. MUSCULOSKELETAL: Denies back pain, joint pain, or myalgia. NEUROLOGIC: left leg numbness/disscomfort Pertinent positives per HPI. [facility] Past Medical History Medical History Asthma Constipation Frequent UTI GERD without esophagitis Hx of adenomatous colonic polyps Hypertension Lipoma of colon Memory loss Mild persistent asthma without complication Moderate single current episode of major depressive disorder Presbycusis, bilateral Pure hypercholesterolemia Unsteady gait Surgical History Surgical History History of cholecystectomy History of tubal ligation Family History Family History Father Family history of transient ischemic attacks Patient's father is Cerebrovascular accident, Onset Age: 77 Sibling Family history of chronic obstructive pulmonary disease Family history of lung cancer Patient's brother is Mother Family history of transient ischemic attacks, Onset Age: 91 Other Family history of schizophrenia Social History Social History Social History: Surrogate medical decision maker: Che Field or Steffany Bradshaw, daughters. Code stat
[2022-11-11 19:11] VITALS: BP 124/65; PULSE 114; RESP 16; TEMP 37.4; O2SAT 98
--- NOTE | 2022-11-11 19:53 | PC.NURSE ---
1944- pt was talking with daughter in exam room and pt is undecided if she wants to go to the [facility] or not, and then if not just call dr becker office in the morning. i had pt sign ama form and cobra form since she was still undecided if she was going or not. pt has a copy of both forms.
== END 2022-11-11 19:43 | disposition left against medical advice (07) ==
PROVIDERS: Emergency Provider Nurse Practitioner Family; PCP Emergency Medicine
DX: R20.0 Anesthesia of skin (principal); J45.909 Unspecified asthma, uncomplicated; K21.9 Gastro-esophageal reflux disease without esophagitis; Z87.891 Personal history of nicotine dependence
CPT/HCPCS: 99211; G0463

== ENCOUNTER 2022-11-24 09:31 | Outpatient (RCR) | payer MEDICARE, SELFPAY ==
--- NOTE | 2022-11-24 10:24 | OPREHPOC ---
Outpatient Therapy Plan of Care This is a Multidisciplinary Plan of Care that may contain components documented by all disciplines (PT, OT, and ST.) PT Problem 1 PT Problem #1 Knowledge Deficit PT Goal 1 Goal 1* indep with HEP PT Problem 2 PT Problem #2 Pain PT Goal 1 Goal 1* pain at worst of 5/10 in R hip PT Problem 3 PT Problem #3 Impaired Strength PT Goal 1 Goal 1* pt report she is able to walk for 10 minutes for fitness 2* pt perform 20 reps of mat and standing exercises R hip 3* R single leg standing x 10 sec with good stability
--- NOTE | 2022-11-24 10:24 | PTOPEVAL1 ---
Assessment and note entered by Kirti Tan, PT Evaluation Information Assessment Status Evaluation Diagnosis R hip trochanteric bursitis Onset July 2022 Subjective Information gradual increase in R hip pain; had injection in R hip last week, has helped her pain; had PT in July for L hip- nothing really helped it; have not been doing exercises since R hip was hurting too much ACTIVITY: not walking due to hip pain; previously walked about 10 minutes, 2-3x/wk; indep with home chores, drives; Reported Pain Level Pain Score Self Report Additional Pain Score Comments pain range in the past week: 0-10/10; lateral hip joint increase pain: walking, leg exercises, getting out of bed decrease pain: sit/rest, lie down is not using heat, ice or pain meds; is sleeping OK; still have some pain sometimes in L hip; L leg numb all way down to foot--back pain; Assessment PT Clinical Summary Lisa has the diagnosis of R hip trochanteric bursitis. She had an injection last week and reports less pain since the injection. Due to hip pain she has not been walking for fitness. Her history includes chronic back pain and recent PT for L hip pain. With the evaluation: she has good strength and flexibility of R hip; 2 minute walking test and 5 reps sit/stand are WNL; there is tenderness over lateral hip joint and mid ITB; Education completed: She was issued a HEP for hip strengthening and instructed to increase walking distance and activity as tolerated. Lisa is motivated and wants to tyr the exercises on her own at home first and see if she needs any more therapy. Skilled PT services are indicated for modalities to decrease hip pain and ITB tightness, progression of HEP and education for pain control. Plan of Care Interventions Electrical Stimulation,Hot Pack/Cold Pack,Manual Therapy,Neuro Re-education,Patient Education,Thera
--- NOTE | 2022-12-30 11:30 | PTOPDC ---
Assessment and note entered by Kirti Tan, PT Evaluation Information Assessment Status Discharge - Pt Not Present Diagnosis R hip trochanteric bursitis Onset July 2022 Assessment PT Clinical Summary PHYSICAL THERAPY DISCHARGE Lisa received the PT evaluation and was instructed on a home exercise program. She did not call for any further appointments after the evaluation. The goals were not addressed. Discharge PT services. Plan of Care PT Services Indicated No
== END 2022-12-30 12:38 | disposition home or self-care (01) ==
LOC: ANHPT 09:31
PROVIDERS: PCP Emergency Medicine; Visit Provider Orthopaedic Surgery
DX: M70.61 Trochanteric bursitis, right hip (principal)
CPT/HCPCS: 97110; 97161

== ENCOUNTER 2022-12-10 07:54 | Outpatient (CLI) | payer MEDICARE, SELFPAY ==
[2022-12-10 09:10] LABS: Alanine Aminotransferase 21 U/L (6-35); Albumin Level 3.9 g/dL (3.5-5.1); Alkaline Phosphatase 94 U/L (38-126); Anion Gap 5 mmol/L (8-16); Aspartate Amino Transferase 28 U/L (14-36); Blood Urea Nitrogen 23 mg/dL (7-17); Calcium 8.9 mg/dL (8.4-10.2); Carbon Dioxide 33 mmol/L (22-30); Chloride 101 mmol/L (98-107); Estimated Glomerular Filt Rate 43; Glucose 79 mg/dL (65-110); Potassium 3.8 mmol/L (3.4-5.0); Sodium 139 mmol/L (137-145)
[2022-12-10 09:47] LABS: Vitamin D 25 Hydroxy 72.5 ng/mL
== END 2022-12-10 07:55 | disposition home or self-care (01) ==
LOC: ANHLAB 07:56
PROVIDERS: PCP Emergency Medicine; Visit Provider Emergency Medicine
DX: E55.9 Vitamin D deficiency, unspecified (principal); E78.5 Hyperlipidemia, unspecified
CPT/HCPCS: 36415; 80053; 82306

== ENCOUNTER 2023-02-07 09:01 | Emergency (ER) | payer MEDICARE, SELFPAY ==
[2023-02-07 09:23] VITALS: BP 124/86; PULSE 106; RESP 16; TEMP 36.9; O2SAT 99
--- NOTE | 2023-02-07 09:36 | ED.FEMALEGU ---
HPI - Female Genitourinary General Chief complaint: Urogenital-Female Stated complaint: Bladder Infection Time Seen by Provider: 02/07/23 09:36 Source: patient, RN notes reviewed and old records reviewed Mode of arrival: ambulatory Limitations: no limitations History of Present Illness HPI Narrative: 83 year old female who presents to express care with complaints of noting her urine to be cloudy this morning and has history of frequent urine infections in past and does take daily trimethoprim as prophylaxis. Patient reports that she does perform self catheterization daily and follows with urologist Dr Kasper office. Patient reports no fevers, chills or sweats,denies any nausea or vomiting, denies any suprapubic pressure or any CVA tenderness. MD elicited complaint: UTI Pertinent past history: recurrent UTIs and other (self catheterization) Onset (ago): day(s) (today) Vaginal discharge: none Related Data Home Medications Medication Instructions Recorded Confirmed beclomethasone dipropionate 80 See Rx Instructions .Route .COMPLEX 02/22/19 12/16/22 mcg/actuation aerosol inhaler calcium polycarbophil 625 mg 1,250 mg PO BID 02/22/19 12/16/22 tablet (FiberCon) [id number] 8 mg-folic 400 1 tablet PO DAILY 02/22/19 12/16/22 mcg-K 50 mcg-lutein 300 mcg tablet (Centrum Silver Women) PreserVision AREDS-2 1 tablet PO BID 02/12/22 12/16/22 biotin 2,500 mcg capsule 2,500 mcg PO DAILY 02/12/22 12/16/22 cyclosporine 0.05 % eye drops in a 1 drp EACH EYE DAILY 02/12/22 12/16/22 dropperette (Restasis) cetirizine 10 mg tablet 10 mg PO DAILY 09/16/22 12/16/22 cholecalciferol (vitamin D3) 250 250 mcg PO DAILY 09/16/22 12/16/22 mcg (10,000 unit) capsule gabapentin 100 mg capsule 100 mg PO TID 09/16/22 12/16/22 trimethoprim 100 mg tablet 100 mg PO DAILY 09/16/22 12/16/22 fluticasone furoate 100 2 inh inhalation DAILY 11/11/22 12/16/22 mcg-vilanterol 25 mcg/dose inhalation powder (Breo Ellipta) Allergies Allergy/AdvReac Type Severity Reaction Status Date / Time propoxyphene [From Darvon] Allergy Severe Swelling Verified 02/07/23 09:33 of Lip/Tongue/Throat Review of Systems Review of Systems: CONSTITUTIONAL: Denies fever, chills, or sweats. CARDIOVASCULAR: Denies chest pain, palpitations, or edema. RESPIRATORY: Denies cough or dyspnea. GASTROINTESTINAL: Denies abdominal pain, nausea, vomiting, or diarrhea. GENITOURINARY: Reports no dysuria, frequency, urgency. Denies flank pain or hematuria.reports urine cloudy and history of UTI's SKIN: Denies rash or itching. MUSCULOSKELETAL: Denies back pain or myalgia. Denies CVA tenderness NEUROLOGIC: Denies headache All systems reviewed & are unremarkable except as noted in HPI and below PMFSH Past Medical History Medical History Asthma Constipation Frequent UTI GERD without esophagitis Hx of adenomatous colonic polyps Hypertension Lipoma of colon Memory loss Mild persistent asthma without complication Moderate single current episode of major depressive disorder Presbycusis, bilateral Pure hypercholesterolemia Unsteady gait Surgical History Surgical History History of cholecystectomy History of tubal ligation Family History Family History Father Family history of transient ischemic attacks Patient's father is Cerebrovascular accident, Onset Age: 77 Sibling Family history of chronic obstructive pulmonary disease Family history of lung cancer Patient's brother is Mother Family history of transient ischemic attacks, Onset Age: 91 Other Family history of schizophrenia Social History Social History Social History: Surrogate medical decision maker: Che reynaga
== END 2023-02-07 09:55 | disposition home or self-care (01) ==
PROVIDERS: Emergency Provider Registered Nurse; PCP Emergency Medicine
DX: N39.0 Urinary tract infection, site not specified (principal); B96.20 Unspecified Escherichia coli [E. coli] as the cause of diseases classified elsewhere; Z87.891 Personal history of nicotine dependence; K21.9 Gastro-esophageal reflux disease without esophagitis; I10 Essential (primary) hypertension; J45.909 Unspecified asthma, uncomplicated; E78.00 Pure hypercholesterolemia, unspecified
CPT/HCPCS: 81003; 87077; 87086; 87186; 99213; G0463

== ENCOUNTER 2023-03-05 08:10 | Emergency (ER) | payer MEDICARE, SELFPAY ==
--- NOTE | 2023-03-05 08:15 | ED.FEMALEGU ---
HPI - Female Genitourinary General Chief complaint: Urogenital-Female Stated complaint: Bladder Infection Time Seen by Provider: 03/05/23 08:13 Source: patient Mode of arrival: ambulatory Limitations: no limitations History of Present Illness HPI Narrative: Lisa is an 83-year-old female patient presenting to the clinic today with complaints of a possible UTI. She reports for the past 3 days she has noticed her urine was cloudy and foul smelling. She does self cath. 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 Does get frequent urinary tract infections due to this. Last UTI was on February 07 she was given Cipro and that was susceptible to E coli. She has had Klebsiella in the past as well the was also sensitive to Cipro. Related Data Home Medications Medication Instructions Recorded Confirmed beclomethasone dipropionate 80 See Rx Instructions .Route .COMPLEX 02/22/19 03/05/23 mcg/actuation aerosol inhaler calcium polycarbophil 625 mg 1,250 mg PO BID 02/22/19 03/05/23 tablet (FiberCon) [id number]-[id number] 8 mg-folic 400 1 tablet PO DAILY 02/22/19 03/05/23 mcg-K 50 mcg-lutein 300 mcg tablet (Centrum Silver Women) PreserVision AREDS-2 1 tablet PO BID 02/12/22 03/05/23 biotin 2,500 mcg capsule 2,500 mcg PO DAILY 02/12/22 03/05/23 cyclosporine 0.05 % eye drops in a 1 drp EACH EYE DAILY 02/12/22 03/05/23 dropperette (Restasis) cetirizine 10 mg tablet 10 mg PO DAILY 09/16/22 03/05/23 cholecalciferol (vitamin D3) 250 250 mcg PO DAILY 09/16/22 03/05/23 mcg (10,000 unit) capsule gabapentin 100 mg capsule 100 mg PO TID 09/16/22 03/05/23 trimethoprim 100 mg tablet 100 mg PO DAILY 09/16/22 03/05/23 fluticasone furoate 100 2 inh inhalation DAILY 11/11/22 03/05/23 mcg-vilanterol 25 mcg/dose inhalation powder (Breo Ellipta) gabapentin 300 mg capsule 300 mg DIRECTED 03/05/23 03/05/23 Allergies Allergy/AdvReac Type Severity Reaction Status Date / Time propoxyphene [From Darvon] Allergy Severe Swelling Verified 02/07/23 09:33 of Lip/Tongue/Throat Review of Systems Review of Systems: Pertinent positives per HPI. Patient denies any fever, chills, rash, headache, visual changes, dizziness, cough, runny nose, sore throat, shortness of breath, chest pain, palpitations, nausea, vomiting, diarrhea, constipation, abdominal pain, or any urinary issues. [facility] Past Medical History Medical History Asthma Constipation Frequent UTI GERD without esophagitis Hx of adenomatous colonic polyps Hypertension Lipoma of colon Memory loss Mild persistent asthma without complication Moderate single current episode of major depressive disorder Presbycusis, bilateral Pure hypercholesterolemia Unsteady gait Surgical History Surgical History History of cholecystectomy History of tubal ligation Family History Family History Father Family history of transient ischemic attacks Patient's father is Cerebrovascular accident, Onset Age: 77 Sibling Family history of chronic obstructive pulmonary disease Family history of lung cancer Patient's brother is Mother Family history of transient ischemic attacks, Onset Age: 91 Other Family history of schizophrenia Social History Social History Social History: Surrogate medical decision maker: Che Field or Steffany Leeann, daughters. Code status: Full code. Caffeine-none Smoking packs per day: 1.5 Smoking cigarettes per day: 30.0 Years smoked: 5 Smoking pack-years: 7.50 Smoking status: Former smoker Tobacco type: cigarettes Second hand tobacco smoke exposure: No Smoking end date: 03/09/87 Alcohol intake: former Substance use: never Sub
[2023-03-05 08:24] VITALS: BP 142/72; PULSE 96; RESP 16; TEMP 36.6; O2SAT 100
== END 2023-03-05 08:40 | disposition home or self-care (01) ==
PROVIDERS: Emergency Provider Nurse Practitioner Family; PCP Emergency Medicine
DX: N39.0 Urinary tract infection, site not specified (principal); I10 Essential (primary) hypertension; Z79.899 Other long term (current) drug therapy; Z87.891 Personal history of nicotine dependence
CPT/HCPCS: 81003; 87077; 87086; 87186; 99213; G0463

== ENCOUNTER 2023-03-16 06:39 | Outpatient (CLI) | payer MEDICARE, SELFPAY ==
[2023-03-16 07:26] LABS: Alanine Aminotransferase 17 U/L (6-35); Albumin Level 3.8 g/dL (3.5-5.1); Alkaline Phosphatase 87 U/L (38-126); Anion Gap 5 mmol/L (8-16); Aspartate Amino Transferase 28 U/L (14-36); Bilirubin,Total 0.8 mg/dL (0.2-1.3); Blood Urea Nitrogen 16 mg/dL (7-17); Calcium 8.9 mg/dL (8.4-10.2); Carbon Dioxide 34 mmol/L (22-30); Chloride 96 mmol/L (98-107); Estimated Glomerular Filt Rate 43; Glucose 88 mg/dL (65-110); Potassium 3.8 mmol/L (3.4-5.0); Sodium 135 mmol/L (137-145)
[2023-03-16 07:45] LABS: Vitamin D 25 Hydroxy 71.4 ng/mL
== END 2023-03-16 06:40 | disposition home or self-care (01) ==
PROVIDERS: PCP Emergency Medicine; Visit Provider Emergency Medicine
DX: E55.9 Vitamin D deficiency, unspecified (principal); I10 Essential (primary) hypertension
CPT/HCPCS: 36415; 80053; 82306

== ENCOUNTER 2023-03-16 15:27 | Emergency (ER) | payer MEDICARE, SELFPAY ==
--- NOTE | 2023-03-16 15:32 | ED.FEMALEGU ---
HPI - Female Genitourinary General Chief complaint: Urogenital-Female Stated complaint: Bladder Infection Time Seen by Provider: 03/16/23 15:44 Source: patient, RN notes reviewed and old records reviewed Mode of arrival: ambulatory Limitations: no limitations History of Present Illness HPI Narrative: 83-year-old female presents to the [facility] with concern she has a UTI. Patient states he normally self caths 3 times a day. States the urine she has been cathing is cloudy. States that she has had urgency and frequency and trouble urinating. Denies abdominal pain, chest pain. Denies fevers States that she last cath herself approximately 1500 today Pertinent past history: recurrent UTIs Related Data Home Medications Medication Instructions Recorded Confirmed beclomethasone dipropionate 80 See Rx Instructions .Route .COMPLEX 02/22/19 03/16/23 mcg/actuation aerosol inhaler calcium polycarbophil 625 mg 1,250 mg PO BID 02/22/19 03/16/23 tablet (FiberCon) [id number] 8 mg-folic 400 1 tablet PO DAILY 02/22/19 03/16/23 mcg-K 50 mcg-lutein 300 mcg tablet (Centrum Silver Women) PreserVision AREDS-2 1 tablet PO BID 02/12/22 03/16/23 biotin 2,500 mcg capsule 2,500 mcg PO DAILY 02/12/22 03/16/23 cyclosporine 0.05 % eye drops in a 1 drp EACH EYE DAILY 02/12/22 03/16/23 dropperette (Restasis) cetirizine 10 mg tablet 10 mg PO DAILY 09/16/22 03/16/23 cholecalciferol (vitamin D3) 250 250 mcg PO DAILY 09/16/22 03/16/23 mcg (10,000 unit) capsule gabapentin 100 mg capsule 100 mg PO TID 09/16/22 03/16/23 trimethoprim 100 mg tablet 100 mg PO DAILY 09/16/22 03/16/23 fluticasone furoate 100 2 inh inhalation DAILY 11/11/22 03/16/23 mcg-vilanterol 25 mcg/dose inhalation powder (Breo Ellipta) gabapentin 300 mg capsule 300 mg DIRECTED 03/05/23 03/16/23 Allergies Allergy/AdvReac Type Severity Reaction Status Date / Time propoxyphene [From Darvon] Allergy Severe Swelling Verified 03/16/23 15:34 of Lip/Tongue/Throat Review of Systems Review of Systems: All systems reviewed & are unremarkable except as noted in HPI and below Constitutional: Constitutional: Reports no additional constitutional complaints Eyes: Eyes: Reports no additional eye complaints ENT: Reports system reviewed and no additional complaints, except as documented Cardiovascular: Cardiovascular: Reports no additional cardiovascular complaints, Denies chest pain and Denies dyspnea Respiratory: Respiratory: Reports no additional respiratory complaints, Denies chest congestion, Denies cough and Denies dyspnea Gastrointestinal: Gastrointestinal: Reports no additional gastrointestinal complaints, Denies abdominal pain, Denies nausea and Denies vomiting Genitourinary: Genitourinary: Reports as per HPI Musculoskeletal: Musculoskeletal: Reports no additional musculoskeletal complaints Integumentary/Breasts: Skin/Breast: Reports system reviewed and no additional complaints, except as docu Neurologic: Reports system reviewed and no additional complaints, except as documented Psychiatric: Psychiatric: Reports no additional psychiatric complaints Allergic/Immunologic: Allergic/Immunologic: Reports no additional allergic/immunologic complaints PMFSH Past Medical History Medical History Asthma Constipation Frequent UTI GERD without esophagitis Hx of adenomatous colonic polyps Hypertension Lipoma of colon Memory loss Mild persistent asthma without complication Moderate single current episode of major depressive disorder Presbycusis, bilateral Pure hypercholesterolemia Unsteady gait Surgical History Surgical History History of cholecystectomy History of tubal ligation Family History Family History Father Family history of transient ischemic attacks Pa
[2023-03-16 15:36] VITALS: BP 124/97; PULSE 113; RESP 18; TEMP 37.6; O2SAT 99
== END 2023-03-16 17:03 | disposition home or self-care (01) ==
PROVIDERS: Emergency Provider Nurse Practitioner; PCP Emergency Medicine
DX: N39.0 Urinary tract infection, site not specified (principal); B96.20 Unspecified Escherichia coli [E. coli] as the cause of diseases classified elsewhere; J45.909 Unspecified asthma, uncomplicated; K21.9 Gastro-esophageal reflux disease without esophagitis; E78.00 Pure hypercholesterolemia, unspecified; F32.1 Major depressive disorder, single episode, moderate
CPT/HCPCS: 36415; 80053; 81003; 82306; 87077; 87086; 87186; 99213; G0463

== ENCOUNTER 2023-04-07 07:58 | Emergency (ER) | payer MEDICARE, SELFPAY ==
[2023-04-07 08:02] VITALS: BP 153/89; PULSE 98; RESP 16; TEMP 36.5; O2SAT 100
--- NOTE | 2023-04-07 08:04 | ED.FEMALEGU ---
HPI - Female Genitourinary General Chief complaint: Urogenital-Female Stated complaint: no urine output when self caths since last night Time Seen by Provider: 04/07/23 08:01 History of Present Illness HPI Narrative: 83-year-old female presenting to the ED for evaluation of decreased urinary output. 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 Patient has had urinary tract infections on February 07, March 05 March 16. Patient has been on Cipro, Levaquin, Augmentin. Patient has also had follow-up with her primary care physician. Patient states he did have follow-up with Urology approximately 3 weeks ago and just completed another round of antibiotics. Related Data Home Medications Medication Instructions Recorded Confirmed biotin 500 mcg capsule PO 04/07/23 bupropion HCl 150 mg tablet,12 hr mg PO 04/07/23 sustained-release calcium polycarbophil 625 mg mg 04/07/23 tablet (FiberCon) cholecalciferol (vitamin D3) 125 125 mcg PO DAILY 04/07/23 04/07/23 mcg (5,000 unit) tablet (Vitamin D3) clonazepam 0.5 mg tablet mg 04/07/23 cyclosporine 0.05 % eye drops in a drp 04/07/23 dropperette (Restasis) fluticasone furoate 100 inhalation 04/07/23 mcg-vilanterol 25 mcg/dose inhalation powder (Breo Ellipta) furosemide 40 mg tablet mg 04/07/23 gabapentin 300 mg capsule mg 04/07/23 lansoprazole 30 mg capsule,delayed mg 04/07/23 release losartan 25 mg tablet mg 04/07/23 multivitamin with iron-mineral ea 04/07/23 potassium chloride 20 mEq/15 mL meq 04/07/23 oral liquid trazodone 50 mg tablet mg 04/07/23 trimethoprim 100 mg tablet mg 04/07/23 vit C 226 mg-vit E 90 mg-copper cap PO 04/07/23 04/07/23 0.8 mg-zinc oxide-lutein 5 mg capsule (PreserVision Lutein) Allergies Allergy/AdvReac Type Severity Reaction Status Date / Time propoxyphene [From Darvon] Allergy Severe Swelling Verified 04/07/23 08:26 of Lip/Tongue/Throat Review of Systems Review of Systems: All systems reviewed & are unremarkable except as noted in HPI and below PMFSH Past Medical History Medical History Asthma Constipation Frequent UTI GERD without esophagitis Hx of adenomatous colonic polyps Hypertension Lipoma of colon Memory loss Mild persistent asthma without complication Moderate single current episode of major depressive disorder Presbycusis, bilateral Pure hypercholesterolemia Unsteady gait Surgical History Surgical History History of cholecystectomy History of tubal ligation Family History Family History Father Family history of transient ischemic attacks Patient's father is Cerebrovascular accident, Onset Age: 77 Sibling Family history of chronic obstructive pulmonary disease Family history of lung cancer Patient's brother is Mother Family history of transient ischemic attacks, Onset Age: 91 Other Family history of schizophrenia Social History Social History Social History: Surrogate medical decision maker: Che Field or Steffany Leeann, daughters. Code status: Full code. Caffeine-none Smoking packs per day: 1.5 Smoking cigarettes per day: 30.0 Years smoked: 5 Smoking pack-years: 7.50 Smoking status: Former smoker Tobacco type: cigarettes Second hand tobacco smoke exposure: No Smoking end date: 03/09/87 Alcohol intake: former Substance use: never Substance use type: does not use Lack of Transportation: No Lack of Food: Never True Current Housing: I Have Housing Concerned About Future Housing: No Difficulty Paying Gas/Electric Bills: No Difficulty Paying for Meds: No Currently Unemployed: No Education: Master's
--- NOTE | 2023-04-07 08:31 | PC.NURSE ---
This RN reviewed [facility] Student Nurse Genitourinary Assessment and agrees w/assessment.
[2023-04-07 08:57] LABS: Appearance Urine Clear (Clear); Bacteria Urine None Seen /hpf; Bilirubin Urine Negative (Negative); Blood Urine Negative (Negative); Color Urine Yellow (Yellow); Glucose Urine UA Negative (Negative); Ketones Urine Negative (Negative); Leukocyte Esterase Ur 1+ LEU/UL (Negative); Nitrate Urine Negative (Negative); Non Pathogenic Casts 0-2; Protein Urine Negative (Negative); RBC Urine 0-2 /hpf (0-2); Specific Grav Ur 1.005 (1.001-1.035); Squamous Epithelial Cell Urine None seen /hpf (Few); Urobilinogen Urine 0.2 mg/dL (<2.0); WBC Urine 21-50 /hpf; pH Urine 7.5 (5.0-9.0)
[2023-04-07 09:02] LABS: Add Urine Microscopic? YES
[2023-04-07 09:46] VITALS: BP 147/73; O2SAT 99
== END 2023-04-07 10:43 | disposition home or self-care (01) ==
PROVIDERS: Emergency Provider Emergency Medicine; PCP Emergency Medicine
DX: R82.998 Other abnormal findings in urine (principal); J45.909 Unspecified asthma, uncomplicated; Z87.440 Personal history of urinary (tract) infections; K21.9 Gastro-esophageal reflux disease without esophagitis; I10 Essential (primary) hypertension; E78.5 Hyperlipidemia, unspecified; Z87.891 Personal history of nicotine dependence
CPT/HCPCS: 81001; 87086; 96365; 99284; J0696

== ENCOUNTER 2023-04-07 14:00 | Outpatient (RCR) | payer MEDICARE, SELFPAY | END 2023-04-07 23:59 | disposition home or self-care (01) | LOC: ANHAUDIO 14:00 | PROVIDERS: PCP Emergency Medicine; Visit Provider Emergency Medicine | DX: Z46.1 Encounter for fitting and adjustment of hearing aid (principal) | CPT/HCPCS: 99199; V5260 ==

== ENCOUNTER 2023-06-01 06:38 | Outpatient (CLI) | payer MEDICARE, SELFPAY ==
[2023-06-01 07:43] LABS: Alanine Aminotransferase 15 U/L (6-35); Albumin Level 3.7 g/dL (3.5-5.1); Alkaline Phosphatase 90 U/L (38-126); Anion Gap 2 mmol/L (8-16); Aspartate Amino Transferase 31 U/L (14-36); Bilirubin,Total 0.7 mg/dL (0.2-1.3); Blood Urea Nitrogen 15 mg/dL (7-17); Calcium 8.9 mg/dL (8.4-10.2); Carbon Dioxide 32 mmol/L (22-30); Chloride 96 mmol/L (98-107); Estimated Glomerular Filt Rate 53; Glucose 81 mg/dL (65-110); Potassium 4.1 mmol/L (3.4-5.0); Sodium 130 mmol/L (137-145)
[2023-06-01 08:03] LABS: Vitamin D 25 Hydroxy 75.7 ng/mL
== END 2023-06-01 06:39 | disposition home or self-care (01) ==
LOC: ANHLAB 06:41
PROVIDERS: PCP Emergency Medicine; Visit Provider Emergency Medicine
DX: E55.9 Vitamin D deficiency, unspecified (principal); I10 Essential (primary) hypertension
CPT/HCPCS: 36415; 80053; 82306

== ENCOUNTER 2023-06-08 09:57 | Outpatient (CLI) | payer MEDICARE, SELFPAY ==
[2023-06-08 10:40] LABS: Anion Gap 3 mmol/L (4-12); Blood Urea Nitrogen 14 mg/dL (7-17); Calcium 9.4 mg/dL (8.4-10.2); Carbon Dioxide 35 mmol/L (22-30); Chloride 99 mmol/L (98-107); Estimated Glomerular Filt Rate 47; Glucose 81 mg/dL (65-110); Potassium 4.6 mmol/L (3.4-5.0); Sodium 137 mmol/L (137-145)
== END 2023-06-08 09:58 | disposition home or self-care (01) ==
PROVIDERS: PCP Emergency Medicine; Visit Provider Emergency Medicine
DX: E78.5 Hyperlipidemia, unspecified (principal)
CPT/HCPCS: 36415; 80048

== ENCOUNTER 2023-07-09 06:35 | Observation (INO) | payer MEDICARE, SELFPAY ==
--- NOTE | ~2023-07-09 | CT_ITS ---
EXAMINATION: CT abdomen pelvis w con DATE: 07/09/2023 07:54 INDICATION: Right lower quadrant pain TECHNIQUE: Computed tomography (CT) of the abdomen and pelvis was performed with 100 cc Omnipaque 350 intravenous contrast. The dose-length product was 411.16 mGy-cm. Automated exposure control and iter ative reconstruction technique were employed. COMPARISON: CT dated 02/12/2022. FINDINGS: There are small nodules in the lung bases measuring 4 mm or less, likely benign. No endobro nchial lesions. There is significant pleural or pericardial effusion. Small hiatal hernia. Heart size normal. Status post cholecystectomy with expected prominence of the bile ducts. Fatty infiltration of the liver. The spleen, pancreas, adrenal glands and right kidney are unremarkable. There is a 7 cm left renal cyst. No hydronephrosis. Moderate colonic fecal loading. There are mildly distended fluid-filled distal sm all bowel loops with transition in right inguinal hernia, consistent with partial obstruction. No marquise e air or free fluid. No pneumatosis or portal venous gas. Severe lumbar spondylosis with grade 1 dege nerative spondylolisthesis at L3-4. There is atherosclerosis of the aorta without aneurysm. IMPRESSION: 1. Partial distal small bowel obstruction with transition in right inguinal hernia. 2: Small bibasilar nodules measuring 4 mm or less, likely benign. Recommend follow-up low dose CT in 12 months. 3: Fatty infiltration of the liver. Reviewed, dictated and finalized at location B. IMPRESSION: 1. Partial distal small bowel obstruction with transition in right inguinal her marty. 2: Small bibasilar nodules measuring 4 mm or less, likely benign. Recommend fo llow-up low dose CT in 12 months. 3: Fatty infiltration of the liver.
[2023-07-09 06:52] VITALS: BP 134/64; PULSE 83; RESP 22; TEMP 36.3; O2SAT 100
--- NOTE | 2023-07-09 07:10 | ECG_ITS ---
SEE SCANNED COPY FOR CONFIRMED REPORT MTDD
--- NOTE | 2023-07-09 07:31 | ED.ABDPAIN ---
HPI - Abdominal Pain General Chief Complaint: Abdominal Pain Stated Complaint: dont feel right Time Seen by Provider: 07/09/23 07:05 History of Present Illness HPI narrative: Patient is an 83-year-old female who presents ER with lower abdominal pain. Worsening over last 4 days. Associated with constipation. No vomiting. No alleviating factors. Denies fevers or chills or sweats. Patient reports she self caths for urine and has not had any retention or cloudy urine. Related Data Home Medications Medication Instructions Recorded Confirmed biotin 500 mcg capsule 500 mcg PO DAILY 04/07/23 07/09/23 bupropion HCl 150 mg tablet,12 hr 150 mg PO DAILY 04/07/23 07/09/23 sustained-release calcium polycarbophil 625 mg 625 mg PO DAILY 04/07/23 07/09/23 tablet (FiberCon) cholecalciferol (vitamin D3) 125 125 mcg PO DAILY 04/07/23 07/09/23 mcg (5,000 unit) tablet (Vitamin D3) cyclosporine 0.05 % eye drops in a 1 drp EACH EYE BID 04/07/23 07/09/23 dropperette (Restasis) fluticasone furoate 100 1 inh inhalation DAILY 04/07/23 07/09/23 mcg-vilanterol 25 mcg/dose inhalation powder (Breo Ellipta) multivitamin with iron-mineral 1 ea PO DAILY 04/07/23 07/09/23 vit C 226 mg-vit E 90 mg-copper 1 cap PO DAILY 04/07/23 07/09/23 0.8 mg-zinc oxide-lutein 5 mg capsule (PreserVision Lutein) furosemide 40 mg tablet 40 mg PO DAILY 06/08/23 07/09/23 gabapentin 300 mg capsule 300 mg PO .COMPLEX 06/08/23 07/09/23 losartan 25 mg tablet 25 mg PO DAILY 06/08/23 07/09/23 trazodone 50 mg tablet 50 mg PO QHS 06/08/23 07/09/23 lansoprazole 30 mg capsule,delayed 30 mg PO DAILY 07/09/23 07/09/23 release potassium chloride 20 mEq 20 meq PO DAILY 07/09/23 07/09/23 tablet,extended release(part/cryst) Allergies Allergy/AdvReac Type Severity Reaction Status Date / Time propoxyphene [From Darvon] Allergy Severe Swelling Verified 06/18/23 10:42 of Lip/Tongue/Throat Review of Systems Review of Systems: All systems reviewed & are unremarkable except as noted in HPI and below Constitutional: Constitutional: Reports no additional constitutional complaints ENT: Reports system reviewed and no additional complaints, except as documented Cardiovascular: Cardiovascular: Reports no additional cardiovascular complaints Respiratory: Respiratory: Reports no additional respiratory complaints Gastrointestinal: Gastrointestinal: Reports abdominal pain, Reports constipation, Denies nausea and Denies vomiting Musculoskeletal: Musculoskeletal: Reports no additional musculoskeletal complaints Psychiatric: Psychiatric: Reports anxiety [facility] Past Medical History Medical History Acute blood loss anemia Anxiety Asthma Belching symptom Bloating Constipation Depression Diverticulosis Frequent UTI GERD (gastroesophageal reflux disease) Hx of adenomatous colonic polyps Hypertension Hyponatremia Insomnia Lipoma of colon Memory loss Mild persistent asthma without complication Pneumoperitoneum Presbycusis, bilateral Pure hypercholesterolemia Restless legs syndrome Spleen laceration Unsteady gait Vitamin D deficiency Surgical History Surgical History History of cholecystectomy History of tubal ligation Family History Family History Father Family history of transient ischemic attacks Patient's father is Cerebrovascular accident, Onset Age: 77 Sibling Family history of chronic obstructive pulmonary disease Family history of lung cancer Patient's brother is Mother Family history of transient ischemic attacks, Onset Age: 91 Other Family history of schizophrenia Social History Social History Social History: Surrogate medical decision maker:
[2023-07-09] MEDS: ONDANSETRON INJ 4 MG/2 ML VIAL IV PUSH (07:40)
[2023-07-09] MEDS: MORPHINE SULFATE (*CRX) 4 MG/ML INJ 2 MG IV PUSH (07:40)
[2023-07-09 07:46] LABS: Estimated CRCL calculation 26 ml/min; Estimated Glomerular Filt Rate 39
[2023-07-09 07:47] LABS: Basophils Absolute Auto 0.1 K/mm3 (0.0-0.1); Basophils Percent Auto 1.4 % (0.2-1.2); Eosinophils Absolute Auto 0.2 K/mm3 (0-0.3); Eosinophils Percent Auto 3.5 % (0-4.4); Hematocrit 39.7 % (37.0-47.0); Hemoglobin 13.3 g/dL (12.0-15.0); Immature Granulocyte Absolute 0.09 K/mm3 (0.00-0.031); Immature Granulocyte Percent A 1.4 % (0-0.5); Lymphocytes Absolute Auto 1.51 K/mm3 (0.9-3.2); Mean Corpuscular HGB Conc 33.5 g/dl (32-36); Mean Corpuscular Hemoglobin 32.3 pg (26-34); Mean Corpuscular Volume 96.4 fl (80-100); Mean Platelet Volume 11.2 fl (7.4-10.4); Monocytes Absolute Auto 0.7 K/mm3 (0.1-0.6); Monocytes Percent Auto 11.3 % (2.6-8.5); Neutrophils Absolute Auto 3.7 K/mm3 (1.3-6.7); Neutrophils Percent Auto 58.4 % (45.5-73.1); Platelet Count Result 184 k/mm3 (150-375); Red Blood Count 4.12 M/mm3 (4.2-5.4); Red Cell Distribution Width 13.2 % (11.5-14.5); White Blood Count 6.3 K/mm3 (4.5-10.0)
[2023-07-09 07:58] LABS: Alanine Aminotransferase 20 U/L (6-35); Albumin Level 4.2 g/dL (3.5-5.1); Alkaline Phosphatase 85 U/L (38-126); Anion Gap 4 mmol/L (4-12); Aspartate Amino Transferase 28 U/L (14-36); Bilirubin,Total 0.7 mg/dL (0.2-1.3); Blood Urea Nitrogen 15 mg/dL (7-17); Calcium 9.4 mg/dL (8.4-10.2); Carbon Dioxide 31 mmol/L (22-30); Chloride 100 mmol/L (98-107); Estimated CRCL calculation 30 ml/min; Estimated Glomerular Filt Rate 47; Glucose 72 mg/dL (65-110); Lipase 96 U/L (23-300); Partial Thromboplastin Time 29.6 Seconds (22.3-36.8); Potassium 3.6 mmol/L (3.4-5.0); Prothrombin Time 13.7 Seconds (11.1-14.7); Sodium 135 mmol/L (137-145)
--- NOTE | 2023-07-09 08:04 | PC.NURSE ---
pt reports she has neurogenic bladder and has to straight cath at home
[2023-07-09 08:30] VITALS: BP 132/74; PULSE 98; RESP 20; TEMP 36.8; O2SAT 98
[2023-07-09 09:30] VITALS: BP 130/68; PULSE 77; RESP 19; TEMP 36.6; O2SAT 98
[2023-07-09 11:01] VITALS: BMI 24.0
--- NOTE | 2023-07-09 11:14 | PC.NURSE ---
This patient, Lisa Tovar, was admitted to [facility] Surg Room 330-02. Patient/family oriented to hospital policies and general routines including ID bracelet, bed and alarms, visiting hours, pain management, procedures, bathroom and other care routines, personal items, smoking policy, room service/diet, and visiting hours. Information on how to activate the Rapid Response Team has been discussed. Patient/Family are encouraged to report perceived risks to care and to ask questions if they do not understand what they are told or what they should do.
--- NOTE | 2023-07-09 11:18 | PM.CNGS ---
Assessment and Plan Assessment and plan (1) Partial small bowel obstruction: Code(s): K56.600 - Partial intestinal obstruction, unspecified as to cause Status: Acute Assessment and Plan: CT reviewed and shows evidence of a partial small bowel obstruction with transition in the right inguinal hernia. On my exam, the right inguinal hernia is completely reduced, and her abdominal pain has resolved. No indication for emergent repair. Discussed nonoperative and surgical treatment options with the patient. Discussed the risks of recurrent incarceration and strangulation if you watch and monitor the hernia. We also discussed the option of proceeding with surgery to repair her hernia to prevent recurrent issues. The patient wishes to proceed with surgery. Will discuss with Dr. Rai and we will work on adding her onto the surgery schedule during this hospital stay. Will keep her NPO for now with IV fluids and analgesics as needed until timing of surgery is decided. (2) Right inguinal hernia: Code(s): K40.90 - Unilateral inguinal hernia, without obstruction or gangrene, not specified as recurrent Status: Acute Assessment and Plan: CT evidence of a right inguinal hernia that was containing small bowel and causing a partial SBO. Her right inguinal hernia is reduced and her abdominal exam is benign. Plan is to schedule her for a right inguinal hernia repair by Dr. Rai. (3) Asthma: Qualifiers: Asthma severity: mild Asthma persistence: intermittent Asthma complication type: uncomplicated Qualified Code(s): J45.20 - Mild intermittent asthma, uncomplicated Code(s): J45.909 - Unspecified asthma, uncomplicated Status: Acute (4) Hypertension: Qualifiers: Hypertension type: essential hypertension Qualified Code(s): I10 - Essential (primary) hypertension Code(s): I10 - Essential (primary) hypertension Status: Acute Plan I have discussed the patient's case and plan of care with Dr. Rai. Thank you for allowing us to see the patient in consultation and we will continue to follow along with you. History of Present Illness Consult details Consult date: 07/09/23 Reason for consult: other (Small bowel obstruction secondary to right inguinal hernia) Requesting physician: Rick Salmon MD Narrative: This is an 83-year-old woman with a history of hypertension, asthma, GERD, restless leg, and anxiety, who we have been asked to see in consultation for a partial small bowel obstruction secondary to right inguinal hernia. She reports feeling constipated over the past 1.5-2 weeks. She has only had a few very small bowel movements in the past 2 weeks. She tried taking Miralax x 1 without much relief. This morning she developed lower abdominal pain. She has never had this pain in the past and decided to drive herself to the ER for evaluation. She denies nausea, vomiting, or bloating. She reports her last BM was a small one this morning prior to the onset of her abdominal pain. In the ED, labs were unremarkable. CT scan of the abdomen and pelvis showed partial distal small bowel obstruction with transition point at the right inguinal hernia. Also noted was small bibasilar nodules measuring 4 mm or less, recommend f/u CT in 12 months, and fatty infiltration of the liver. She was admitted to the Hospitalist service and is now seen on the medical floor. She reports her abdominal pain has resolved since being in the ER. Denies any nausea or bloating. Denies noticing a bulge in her groin today or in the past. She was unaware that she had a hernia. Previous surgeries include a laparoscopic cholecystectomy. She does report that she is a poor historian with her medical history and usually relies on her daughter who is not available today because her is having surgery. In review of her EMR, she did also have a spleen laceration following a colonoscopy in 2021 that improved with conservative measures and
[2023-07-09] MEDS: SODIUM CHLORIDE 0.9% IV 1,000 ML 60 ML IV CONT (12:46)
--- NOTE | 2023-07-09 13:05 | PM.IMHP ---
H&P: HPI History of Present Illness Date/Time: 07/09/23 14:40 Chief Complaint: Lightheadedness, Indigestion, Constipation Narrative: 83 y/o F presents here with lightheadedness, indigestion, and constipation with PMH of anxiety, HTN, RLS, frequent UTIs, GERD, lipoma of colon, asthma, and HLD. Patient presented to the ED from home for further evaluation of constipation. Patient reports feeling constipated for the last 1.5-2 weeks, LBM this morning [employer], and has passed several small/hard BMs in the last 2 weeks. Patient tried Miralax x1 without resolution. Also experiencing associated lower abdominal pain described as 10/10, burning, nonradiating, constant, no aggravating factors, and no alleviating factor. Denies nausea, vomiting, diarrhea, fever, chills, and abdominal bloating. Has hx of a cholecystomy done laparoscopically, otherwise no other abdominal surgeries. Pain has since resolved spontaneously, no recurrence. Initial VS at presentation: 97.4? F, HR 83, RR 22, 134/64, and 100% on RA. ED workup showed: No leukocytosis, no anemia, creatinine 1.1 and GFR 47 (previously 1.1 and GFR 47on 06/08/23). CT of the abd/pelvis showed a partial distal SBO w/transition in the right inguinal hernia, small bibasilar nodules, and fatty infiltration of the liver. Review of Systems Review of Systems: All systems reviewed & are unremarkable except as noted in HPI and below PMFSH Past Medical History Medical History Acute blood loss anemia Anxiety Asthma Belching symptom Bloating Constipation Depression Diverticulosis Frequent UTI GERD (gastroesophageal reflux disease) Hx of adenomatous colonic polyps Hypertension Hyponatremia Insomnia Lipoma of colon Memory loss Mild persistent asthma without complication Pneumoperitoneum Presbycusis, bilateral Pure hypercholesterolemia Restless legs syndrome Spleen laceration Unsteady gait Vitamin D deficiency Surgical History Surgical History History of cholecystectomy History of tubal ligation Family History Family History Father Family history of transient ischemic attacks Patient's father is Cerebrovascular accident, Onset Age: 77 Sibling Family history of chronic obstructive pulmonary disease Family history of lung cancer Patient's brother is Mother Family history of transient ischemic attacks, Onset Age: 91 Other Family history of schizophrenia Social History Social History Social History: Surrogate medical decision maker: Che Field or Steffany Bradshaw, daughters. Code status: Full code. Caffeine-none Smoking packs per day: 1.5 Smoking cigarettes per day: 30.0 Years smoked: 5 Smoking pack-years: 7.50 Smoking status: Never smoker Tobacco type: cigarettes Second hand tobacco smoke exposure: No Smoking end date: 03/09/87 Alcohol intake: never Substance use: never Substance use type: does not use Do You Feel Safe in your Home?: Yes Lack of Transportation: No Lack of Food: Never True Current Housing: I Have Housing Concerned About Future Housing: No Difficulty Paying Gas/Electric Bills: No Difficulty Paying for Meds: No Currently Unemployed: No Education: Master's Degree or Higher Difficulty w/ Childcare or Family Care: No Spiritual care concerns: No Agree to blood products: Yes Meds Home Medications and Allergies Home Medications Medication Instructions Recorded Confirmed Type biotin 500 mcg capsule 500 mcg PO DAILY 04/07/23 07/09/23 History bupropion HCl 150 mg tablet,12 hr 150 mg PO DAILY 04/07/23 07/09/23 History sustained-release calcium polycarbophil 625 mg 625 mg PO DAILY 04/07/23 07/09/23 History tablet (FiberCon) ch
[2023-07-09 14:00] VITALS: BP 120/84; PULSE 76; RESP 18; TEMP 36.7; O2SAT 96
[2023-07-09 15:20] LABS: Appearance Urine Clear (Clear); Bacteria Urine 4+ /hpf; Bilirubin Urine Negative (Negative); Blood Urine Negative (Negative); Color Urine Yellow (Yellow); Glucose Urine UA Negative (Negative); Ketones Urine Negative (Negative); Leukocyte Esterase Ur 3+ LEU/UL (Negative); Nitrate Urine Positive (Negative); Non Pathogenic Casts 0-2; Protein Urine Negative (Negative); RBC Urine 0-2 /hpf (0-2); Squamous Epithelial Cell Urine None Seen /hpf (Few); Urobilinogen Urine 0.2 mg/dL (<2.0); WBC Urine >100 /hpf (0-3); pH Urine 7.5 (5.0-9.0)
[2023-07-09 15:22] LABS: Add Urine Microscopic? YES; Specific Grav Ur 1.033 (1.001-1.035)
[2023-07-09] MEDS: FUROSEMIDE 40 MG TABLET PO (17:14)
[2023-07-09] MEDS: cycloSPORINE 0.4 ML OPHTH SOLUTION 1 DROP EACH EYE (17:15)
[2023-07-09] MEDS: LOSARTAN POTASSIUM 25 MG TABLET PO (17:15)
[2023-07-09] MEDS: clonazePAM (*CRX) 0.5 MG TABLET PO (17:15)
[2023-07-09] MEDS: PANTOPRAZOLE 40 MG TABLET PO (17:15)
[2023-07-09] MEDS: traZODone HCL 50 MG TABLET PO (21:06)
[2023-07-09] MEDS: GABAPENTIN 300 MG CAPSULE PO (21:06)
[2023-07-09 21:23] VITALS: BP 110/66; PULSE 62; RESP 18; TEMP 36.4; O2SAT 96
[2023-07-09] MEDS: DOCUSATE SODIUM 100 MG CAPSULE PO (22:58)
[2023-07-09] MEDS: MEROPENEM 1 GM/NS 100 ML 1 GM/100 ML BAG IVPB (22:58)
[2023-07-10 05:29] VITALS: BP 112/59; PULSE 71; RESP 18; TEMP 36.6; O2SAT 97
[2023-07-10] MEDS: CHOLECALCIFEROL 1,000 UNITS TABLET 5000 UNITS PO (08:03)
[2023-07-10] MEDS: POTASSIUM CHLORIDE 20 MEQ PACKET (FOR LIQUID) PO (08:04)
[2023-07-10] MEDS: polyethylene glycoL 3350 17 GM POWD.PACK PO (08:04)
[2023-07-10] MEDS: buPROPion HCL SR (12 HR) 150 MG TAB PO (08:05)
[2023-07-10] MEDS: DOCUSATE SODIUM 100 MG CAPSULE PO (08:06)
[2023-07-10] MEDS: clonazePAM (*CRX) 0.5 MG TABLET PO (08:06)
[2023-07-10] MEDS: PANTOPRAZOLE 40 MG TABLET PO (08:07)
[2023-07-10] MEDS: FUROSEMIDE 40 MG TABLET PO (08:07)
[2023-07-10] MEDS: OPTI-GEN TAB 1 TABLET PO (08:08)
[2023-07-10] MEDS: GABAPENTIN 300 MG CAPSULE PO (08:08)
--- NOTE | 2023-07-10 08:15 | PM.PNGS ---
Progress Note: A&P Assessment and Plan (1) Incarcerated right inguinal hernia: Code(s): K40.30 - Unilateral inguinal hernia, with obstruction, without gangrene, not specified as recurrent Status: Acute Assessment and Plan: Hernia reduced and has not recurred overnight. Plan to discharge patient today if okay with hospitalist. She can resume her home meds and usual diet. I have arranged for her to have robotic laparoscopic repair of her incarcerated right inguinal hernia on Thursday07/15/2023 as an outpatient. I discussed this surgery with the patient in detail. All questions were answered. She will come in as an outpatient on Thursday for the procedure. Discharge information written. (2) Partial small bowel obstruction: Code(s): K56.600 - Partial intestinal obstruction, unspecified as to cause Status: Acute Assessment and Plan: Resolved with hernia reduction. Resume normal diet. Ambulation and activities as usual. 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 The type catheter available in the hospital was not working for her so consequently she has a Wilkinson catheter in place. This can be discontinued and she will resume her self catheterization routine at home as usual. Subjective Subjective Date/Time Seen: 07/10/23 08:15 Patient reports: no new complaints, feels better (Feels fine, no pain, no nausea) and afebrile Review of Systems Review of Systems: All systems reviewed & are unremarkable except as noted in HPI and below (HPI) Exam Const: General: comfortable and no acute distress Orientation/consciousness: patient oriented x3 Resp: Effort & Inspection: normal respiratory effort Auscultation: clear to auscultation bilaterally Cardio: Rate: regular rate Rhythm: regular rhythm GI: Inspection: normal to inspection, non-distended and no visible herniation GI Palp: Yes Soft to palpation, No Tenderness to palpation present (GI), No Guarding due to palpation present (GI), No Hernia present, No Palpable mass present and No Rebound tenderness present Auscultation: normal bowel sounds Neuro: General: patient oriented x3 and no focal motor deficits Extrem: General: no calf tenderness and no edema Psych: Affect: normal affect Insight: Good insight present (Psych) Judgement: Good judgement present (Psych) Objective Data Vital Signs Vital Signs: Vital Signs - 24 hr 07/09/23 08:30 07/09/23 09:30 07/09/23 14:00 Temperature 36.8 C 36.6 C 36.7 C Pulse Rate 98 77 76 Respiratory Rate 20 19 18 Blood Pressure 132/74 130/68 120/84 Pulse Oximetry 98 98 96 Oxygen Delivery 07/09/23 21:23 07/09/23 20:25 07/10/23 05:29 Temperature 36.4 C 36.6 C Pulse Rate 62 71 Respiratory Rate 18 18 Blood Pressure 110/66 112/59 L Pulse Oximetry 96 97 Oxygen Delivery Room Air Intake/Output Intake/Output: Intake & Output 07/07/23 07/08/23 07/09/23 07/10/23 23:59 23:59 23:59 23:59 Intake Total 480 100 Output Total 1310 350 Balance -830 -250 Meds/Results Medications: Active Medications Generic Name Dose Route Start Last Admin Trade Name Freq PRN Reason Stop Dose Admin Bupropion HCl 150 mg 07/10/23 09:00 Bupropion Hcl Sr (12 Hr) 150 Mg Tab PO DAILY RASHMI Calcium Polycarbophil 625 mg 07/10/23 09:00 Calcium Polycarbophil 625 Mg Tablet PO DAILY RASHMI Clonazepam 0.5 mg 07/09/23 17:00 07/09/23 17:15 Clonazepam (*Crx) 0.5 Mg Tablet PO 0.5 mg BID RASHMI Administration Cyclosporine 1 drop 07/09/23 17:00 07/09/23 17:15 Cyclosporine 0.4 Ml Ophth Solution EACH EYE 1 drop BID RASHMI Administration Docusate Sodium 100 mg 07/09/23 21:20 07/09/23 22:58 Docusate Sodium 100 Mg Capsule PO 100 mg Q12HR RASHMI Administration Furosemide 40 mg 07/09/23 14:00 07/09/23 17:14
[2023-07-10] MEDS: MULTIVIT W/ IRON, MINERALS 15 ML LIQUID (*BKC) PO (08:44)
[2023-07-10] MEDS: cycloSPORINE 0.4 ML OPHTH SOLUTION 1 DROP EACH EYE (08:44)
[2023-07-10] MEDS: FLUTICASONE/SALMETEROL 115-21 MCG INHALER 1 PUFF 2 PUFF INHALATION (08:50)
[2023-07-10 08:54] VITALS: O2SAT 94
[2023-07-10 09:00] VITALS: BP 109/55; PULSE 85; RESP 14; TEMP 37; O2SAT 93
--- NOTE | 2023-07-10 09:10 | PM.IMPN ---
Progress Note: A&P Assessment and Plan (1) Partial small bowel obstruction: Code(s): K56.600 - Partial intestinal obstruction, unspecified as to cause Status: Deleted Assessment and Plan: - CT abd/pelvis 1. Partial distal small bowel obstruction with transition in right inguinal hernia. 2:?Small bibasilar nodules measuring 4 mm or less, likely benign. Recommend follow-up low dose CT in 12 months. 3: Fatty infiltration of the liver. - General Surgery consulted, provided the following recs: right inguinal hernia reduced on their exam and abd pain resolved. There was no hernia recurrence overnight. No indication for emergent surgical management FERRY HAND discussed risk/benefit with patient of surgical management vs observation, patient elected for hernia repair resume normal diet plan for robotic laparoscopic repair of her incarcerated right inguinal hernia on Thursday07/15/2023 as an outpatient with Dr. Rai, may be discharged from a general surgery standpoint - antiemetics prn, pain medications prn - docusate and miralax (2) Right inguinal hernia: Code(s): K40.90 - Unilateral inguinal hernia, without obstruction or gangrene, not specified as recurrent Status: Acute Assessment and Plan: - see above - plan for surgical management with Fredi BETANCOURT (GenSurg) on 07/14 - regular diet - ambulation and activities as usual (3) UTI (urinary tract infection): Qualifiers: Hematuria presence: with hematuria Urinary tract infection type: site unspecified Qualified Code(s): N39.0 - Urinary tract infection, site not specified; R31.9 - Hematuria, unspecified Code(s): N39.0 - Urinary tract infection, site not specified Status: Inactive Assessment and Plan: - UA: Positive nitrates, 3+ leuks, greater than 100 WBC, 4+ bacteria, no epithelial cells - UC pending, obtained on 07/08. Patient remains inpatient at this time to ensure UTI coverage with current antibiotics. - previous micro reviewed, has grown E coli with multiple resistances - started on Ceftriaxone, transitioned to meropenem - on cephalexin daily for UTI prevention per patient. has hx of urinary retention and self-caths daily for this. Type catheter available in the hospital was not working for her so consequently she has a Wilkinson catheter in place.? This can be discontinued and she will resume her self catheterization routine at home as usual. (4) Hypertension: Qualifiers: Hypertension type: essential hypertension Qualified Code(s): I10 - Essential (primary) hypertension Code(s): I10 - Essential (primary) hypertension Status: Acute Assessment and Plan: - chronic, currently 130/68 - continue home medications: Losartan 25 mg daily, Lasix 40 mg daily - monitor Plan Diet: full liquid GI Prophylaxis: pantoprazole IVP DVT Prophylaxis: SCDs Lines: peripheral Code Status: full code Subjective Date/time seen: 07/10/23 09:10 Interval history: 83 y/o F presents here with lightheadedness, indigestion, and constipation with PMH of anxiety, HTN, RLS, frequent UTIs, GERD, lipoma of colon, asthma, and HLD. CT of the abd/pelvis showed a partial distal SBO w/transition in the right inguinal hernia, small bibasilar nodules, and fatty infiltration of the liver. Evaluated by surgery who state patient is ready for discharge on their end. Plan is for patient to undergo a robotic laparoscopic repair of her incarcerated right inguinal hernia on Thursday07/15/2023 as an outpatient with Dr. Rai. Patient remains inpatient due to history of recurrent UTI with resistance. Review of Systems Review of Systems: All systems reviewed & are unremarkable except as noted in HPI and below Exam Narrative: AF General: well nourished, well-developed female in no acute respiratory distress who is nontoxic appearing, lying semi recumbent in bed. HEENT: Normocephalic. Atraumatic. Pupils equ
[2023-07-10 10:02] LABS: Basophils Absolute Auto 0.1 K/mm3 (0.0-0.1); Basophils Percent Auto 0.7 % (0.2-1.2); Eosinophils Absolute Auto 0.2 K/mm3 (0-0.3); Eosinophils Percent Auto 3.1 % (0-4.4); Hematocrit 37.3 % (37.0-47.0); Hemoglobin 12.2 g/dL (12.0-15.0); Immature Granulocyte Absolute 0.03 K/mm3 (0.00-0.031); Immature Granulocyte Percent A 0.4 % (0-0.5); Lymphocytes Absolute Auto 1.38 K/mm3 (0.9-3.2); Mean Corpuscular HGB Conc 32.7 g/dl (32-36); Mean Corpuscular Hemoglobin 32.1 pg (26-34); Mean Corpuscular Volume 98.2 fl (80-100); Mean Platelet Volume 10.5 fl (7.4-10.4); Monocytes Absolute Auto 0.8 K/mm3 (0.1-0.6); Monocytes Percent Auto 10.2 % (2.6-8.5); Neutrophils Absolute Auto 5.2 K/mm3 (1.3-6.7); Neutrophils Percent Auto 67.6 % (45.5-73.1); Platelet Count Result 163 k/mm3 (150-375); Red Cell Distribution Width 13.2 % (11.5-14.5); White Blood Count 7.7 K/mm3 (4.5-10.0)
[2023-07-10 10:20] LABS: Alanine Aminotransferase 17 U/L (6-35); Albumin Level 3.5 g/dL (3.5-5.1); Alkaline Phosphatase 78 U/L (38-126); Anion Gap 2 mmol/L (4-12); Aspartate Amino Transferase 25 U/L (14-36); Bilirubin,Total 0.9 mg/dL (0.2-1.3); Blood Urea Nitrogen 11 mg/dL (7-17); Calcium 8.8 mg/dL (8.4-10.2); Carbon Dioxide 33 mmol/L (22-30); Chloride 99 mmol/L (98-107); Estimated CRCL calculation 30 ml/min; Estimated Glomerular Filt Rate 47; Glucose 98 mg/dL (65-110); Potassium 4.2 mmol/L (3.4-5.0); Sodium 134 mmol/L (137-145)
[2023-07-10] MEDS: MEROPENEM 1 GM/NS 100 ML 1 GM/100 ML BAG IVPB (11:51)
--- NOTE | 2023-07-10 12:04 | PC.NURSE ---
all documentation done by SN Vishnu done by this RN.
--- NOTE | 2023-07-10 13:34 | PM.DS ---
DS: Admitting Diagnosis Discharge Date 07/10/23 Admitting Diagnosis right inguinal hernia urinary tract infection hypertension DS: Discharge Diagnosis Discharge Diagnosis (1) Right inguinal hernia: Code(s): K40.90 - Unilateral inguinal hernia, without obstruction or gangrene, not specified as recurrent Status: Acute (2) UTI (urinary tract infection): Qualifiers: Hematuria presence: with hematuria Urinary tract infection type: site unspecified Qualified Code(s): N39.0 - Urinary tract infection, site not specified; R31.9 - Hematuria, unspecified Code(s): N39.0 - Urinary tract infection, site not specified Status: Inactive (3) Hypertension: Qualifiers: Hypertension type: essential hypertension Qualified Code(s): I10 - Essential (primary) hypertension Code(s): I10 - Essential (primary) hypertension Status: Acute DS: Summary Hospital Course Reason for hospitalization: right inguinal hernia urinary tract infection hypertension Hospital Course: 83 y/o F with PMH of anxiety, HTN, RLS, frequent UTIs, GERD, lipoma of colon, asthma, and HLD presents to hospital with lightheadedness, indigestion, and constipation. CT of the abd/pelvis showed a partial distal SBO w/transition in the right inguinal hernia, small bibasilar nodules, and fatty infiltration of the liver. Hernia is reducible and has not recurred overnight. Tolerating diet. Patient is passing flatus and having small bowel movements. Evaluated by surgery who state patient is ready for discharge on their end. Plan is for patient to undergo a robotic laparoscopic repair of her incarcerated right inguinal hernia on Thursday07/15/2023 as an outpatient with Dr. Rai. Patient also found to have a urinary tract infection on urinalysis. The urine culture is still pending. Discussed with patient that I would prefer her to stay inpatient pending the culture result to ensure adequate antibiotic coverage due to prior resistance. Patient states understanding but wishes to be discharged on an antibiotic with the knowledge that she will receive a call and a new antibiotic be sent to her pharmacy if necessary based on culture results. Patient will continue Augmentin for 4 days. Patient discharged home with daughter in a stable condition. She will undergo the procedure as scheduled with Dr. Rai and follow up with her PCP in 2 weeks. Status at Discharge Functional status at discharge: independent ambulation Time Spent with Patient Time attestation: Total time spent providing and/or coordinating discharge services: Time spent: Greater than 30 minutes Exam Narrative: AF HR 85 RR 14 SpO2 93 BP 109/55 General: well nourished, well-developed female in no acute respiratory distress who is nontoxic appearing, sitting up in bed HEENT: Normocephalic. Atraumatic. Pupils equal round reactive to light. Extraocular movement intact. Sclera clear and anicteric. No facial asymmetry. Chest: Lungs are clear to auscultation bilaterally. No wheezes or crackles. CV: Heart was regular rate and rhythm. S1-S2. No murmurs, gallops, or rubs. Abd: Abdomen was soft. Nontender. Nondistended. Positive bowel sounds. No organomegaly or masses. Hernia remains reduced. Ext: No clubbing, cyanosis, or edema. 2+ DP pulses bilaterally. Neuro: Patient is alert and oriented x4. Speech is clear. Psych: Normal mood and affect. Patient is pleasant and cooperative. Skin: Warm and dry. No rashes noted. DS: Data Data Completed and Pending Completed studies during hospitalization: Abdomen/pelvis CT Pending studies at discharge: Urine culture Labs on day of discharge: Labs from last 24 hours 07/10/23 07/09/23 09:46 15:06 WBC 7.7 RBC 3.80 L Hgb 12.2 Hct 37.3 MCV 98.2 MCH 32.1 MCHC 32.7 RDW 13.2 Plt Count 163 MPV 10.5 H Immature Gran % (Auto) 0.4 Neut % (Auto) 67.6 Lymph % (Auto) 18.0 L [place] % (Auto) 10.2 H Eos % (Auto) 3.1
--- NOTE | 2023-07-13 11:27 | PC.NURSE ---
Urine cx is negative.
== END 2023-07-10 13:01 | disposition home or self-care (01) ==
LOC: ANHED 08:37 → ANH3MEDSUR 10:17
PROVIDERS: Student in an Organized Health Care Education/Training Program; Surgery; Admitting Provider Internal Medicine; Emergency Provider Emergency Medicine; PCP Emergency Medicine; Visit Provider General Practice
DX: K40.30 Unilateral inguinal hernia, with obstruction, without gangrene, not specified as recurrent (principal); N39.0 Urinary tract infection, site not specified; E78.00 Pure hypercholesterolemia, unspecified; I10 Essential (primary) hypertension; J45.30 Mild persistent asthma, uncomplicated; F41.9 Anxiety disorder, unspecified; F32.A Depression, unspecified; K21.9 Gastro-esophageal reflux disease without esophagitis; G25.81 Restless legs syndrome; E55.9 Vitamin D deficiency, unspecified; Z87.891 Personal history of nicotine dependence
CPT/HCPCS: 36415; 74177; 80053; 81001; 83690; 85025; 85610; 85730; 87086; 87088; 93005; 94640; 96374; 96375; 99285; A9270; G0378; J0696; J2185; J2270; J2405; J7030; Q9967

== ENCOUNTER 2023-07-15 00:38 | Day surgery (SDC) | payer MEDICARE, SELFPAY ==
--- NOTE | 2023-07-10 09:42 | PC.NURSE ---
Report to the Outpatient Waiting Room, entrance under the green pavilion located off [facility], at time __0600 on date 07/15/23 . Planned Procedure Time: __0730 . Time changes happen often and if your time is changed the preop area will call you the afternoon before. - You and your visitor will be asked to self-screen and do not enter if you have any COVID symptoms. - A mask is optional within the hospital at this time. Patients may have clear liquids (water, carbonated beverages, clear teas, apple juice) until 3 hours prior to surgery( 4:30 am) with a maximum of 20 ounces. - No food from midnight until time of surgery - Infants may have breast milk until 4 hours before surgery, infant formula 6 hours prior to surgery. - Children will be allowed to drink immediately following surgery. If applicable, please bring a bottle or sippy cup to assist with drinking. Juice, water, soda, and popsicles are readily available. For infants on formula, please bring formula the day of surgery. Pacifiers are allowed. Take the following medications with a SIP of water the morning of surgery: ___BUPROPION,RESTASIS EYE DROPS,BREO INHALER,GABAPENTIN DO NOT STOP ANY OF YOUR OTHER PRESCRIPTION MEDICATIONS PRIOR TO SURGERY ?EXCEPT THE FOLLOWING Medications to discontinue per physician ____HOLD ALL VITAMINS AND SUPPLEMENTS 3 DAYS PRE OP.LAST DOSE 07/11/23 Please no make-up, nail lithuanian, hairspray, perfume, deodorant, or body powder the day of surgery. No jewelry (including any body piercings) or valuables the day of surgery, leave them at home. Please take a shower or bath the night before, or the morning of, surgery with an antibacterial soap. Wear comfortable, loose fitting clothing. Children are encouraged to wear pajamas. - Jewelry must be removed prior to entering the operating room. Rings and piercings that are not removed may be cut off. - The hospital will not accept responsibility for valuables. - Please leave all valuables, including medications, at home the day of surgery. If you are going home after surgery, a licensed log driver must drive you home. - NO public transportation without another adult if you receive anesthesia. - We recommend that an adult stay with you for 24 hours following discharge. - We also recommend that you do not drive, make important decision, drink alcoholic beverages, or take any drugs that were not prescribed by your health care provider for at least 24 hours after your discharge time Follow any additional instructions given to you from your surgeon. If you or anyone in your household have experienced Covid symptoms in the past week, please notify your surgeon or the nurse liaison at the phone number below for possible testing. Telephone instructions given to _PATIENT AND DAUGHTER SHAINA FLOREZ and asked if any additional questions and then verbalized understanding. Patient advised to call surgeon office or pre surgery nurse liaison [phone] if any additional questions.
[2023-07-10 09:54] VITALS: BMI 20.9
[2023-07-15] VITALS (8 sets, daily range): BP systolic 100–122; BP diastolic 44–62; PULSE 66–93; RESP 12–16; TEMP 36.1–36.2; O2SAT 97–100; BMI 21.8
[2023-07-15] MEDS: ACETAMINOPHEN 500 MG TABLET 1000 MG PO (07:02)
[2023-07-15] MEDS: KETOROLAC 15 MG/ML VIAL (*BKC) IV PUSH (07:02)
--- NOTE | 2023-07-15 07:03 | WPDANESEPPF ---
Anes - Initial Pre Proc Eval Procedure: Operation Date: 07/15/23 07:30 Proposed Procedures p Robotic Assisted Incarcerated Right Inguinal Hernia Repair with Mesh - Harshil Rai MD Date/Time: 07/15/23 07:03 Surgeon: Harshil Rai MD Pre Op Diagnosis: Incarcerated Right Inguinal Hernia Patient Data Age: 83 Gender: F Height: 1.68 m Weight: 61.3 kg Allergies Allergy/AdvReac Type Severity Reaction Status Date / Time propoxyphene [From Darvon] Allergy Severe Swelling Verified 07/15/23 06:56 of Lip/Tongue/Throat Home Medications Medication Instructions Recorded Confirmed Type biotin 500 mcg capsule 500 mcg PO DAILY 04/07/23 07/10/23 History bupropion HCl 150 mg tablet,12 hr 150 mg PO DAILY 04/07/23 07/10/23 History sustained-release calcium polycarbophil 625 mg 625 mg PO DAILY 04/07/23 07/10/23 History tablet (FiberCon) cholecalciferol (vitamin D3) 125 125 mcg PO DAILY 04/07/23 07/10/23 History mcg (5,000 unit) tablet (Vitamin D3) cyclosporine 0.05 % eye drops in a 1 drp EACH EYE BID 04/07/23 07/10/23 History dropperette (Restasis) fluticasone furoate 100 1 inh inhalation DAILY 04/07/23 07/10/23 History mcg-vilanterol 25 mcg/dose inhalation powder (Breo Ellipta) vit C 226 mg-vit E 90 mg-copper 1 cap PO BID 04/07/23 07/10/23 History 0.8 mg-zinc oxide-lutein 5 mg capsule (PreserVision Lutein) furosemide 40 mg tablet 40 mg PO DAILY 06/08/23 07/10/23 History gabapentin 300 mg capsule 300 mg PO .COMPLEX 06/08/23 07/10/23 History losartan 25 mg tablet 25 mg PO DAILY 06/08/23 07/10/23 History trazodone 50 mg tablet 50 mg PO QHS 06/08/23 07/10/23 History lansoprazole 30 mg capsule,delayed 30 mg PO DAILY 07/09/23 07/10/23 History release potassium chloride 20 mEq 20 meq PO DAILY 07/09/23 07/10/23 History tablet,extended release(part/cryst) amoxicillin 500 mg-potassium 1 tablet PO Q12H #8 tabs 07/10/23 Rx clavulanate 125 mg tablet (Augmentin) clonazepam 0.5 mg tablet 0.5 mg PO HS 07/10/23 07/10/23 History [id number]-irsb-irfk 8 mg-folic 400 1 tablet PO DAILY 07/10/23 07/10/23 History mcg-K 50 mcg-lutein 300 mcg tablet (Centrum Silver Women) Patient hx anesthesia problems: none Family hx anesthesia problems: none Results Review: All pre-operative results and documents have been reviewed as part of the pre-operative evaluation. [facility] Past Medical History Medical History Acute blood loss anemia Anxiety Asthma Belching symptom Bloating Constipation Depression Diverticulosis Frequent UTI GERD (gastroesophageal reflux disease) Hx of adenomatous colonic polyps Hypertension Hyponatremia Insomnia Lipoma of colon Memory loss Mild persistent asthma without complication Pneumoperitoneum Presbycusis, bilateral Pure hypercholesterolemia Restless legs syndrome Spleen laceration Unsteady gait Vitamin D deficiency Surgical History Surgical History History of cholecystectomy History of tubal ligation Family History Family History Father Family history of transient ischemic attacks Patient's father is Cerebrovascular accident, Onset Age: 77 Sibling Family history of chronic obstructive pulmonary disease Family history of lung cancer Patient's brother is Mother Family history of transient ischemic attacks, Onset Age: 91 Other Family history of schizophrenia Social History Social History Social History: Surrogate medical decision maker: Che Field or Steffany Bradshaw, daughters. Code status: Full code. Caffeine-none Smoking packs per day: 1.5 Smoking cigarettes per day: 30.0 Years smoked: 5 Smoking pack-years: 7.50 Smoking status:
[2023-07-15] MEDS: LACTATED RINGERS 1,000 ML 30 ML IV CONT ×2 (07:06→10:09)
--- NOTE | 2023-07-15 07:09 | WPDHPUPDATE1 ---
History and Physical Update Update Date/Time: 07/15/23 07:09 History and Physical has been reviewed, including an updated exam of the patient. There are NO changes in the patient's condition. Risks, benefits, and alternatives have been discussed and questions answered. Patient agrees to proceed with procedure.
[2023-07-15] MEDS: ceFAZolin 2 GM/D5W 50 ML 2 GM/50 ML BAG IVPB (07:25)
[2023-07-15] MEDS: BUPIVACAINE/EPINEPHRINE 0.5% 50 ML VIAL 20 ML INFILTRATE (08:15)
--- NOTE | 2023-07-15 10:31 | W.PM.PROC2 ---
Procedure Note - Detailed Date of Procedure 07/15/23 Pre-op Diagnosis Incarcerated Right Inguinal Hernia Post-op Diagnosis Other (Incarcerated right inguinal hernia, left inguinal hernia) Procedure Performed Robotic laparoscopic repair incarcerated right inguinal hernia, robotic laparoscopic repair left inguinal hernia, both repairs with mesh. Surgeon Harshil Rai MD Junior Software Engineer Theresa COHEN Anesthesia General and Local Indications Patient presented to the emergency room on 07/09/2023 with abdominal pain and was found to have an incarcerated right inguinal hernia with small-bowel obstruction due to incarceration in the hernia. This subsequently reduced and the patient was able to be discharged. She is taken to surgery now for repair of incarcerated right inguinal hernia. Findings Patient had a large indirect hernia on the right which was the site of the incarcerated hernia. She also had both a fat containing direct inguinal hernia and a femoral hernia on the right. On the left side, there was both a direct and indirect inguinal hernia. There was no palpable hernia on her exam but was clearly evident on laparoscopy. Both hernias were repaired. Description of Procedure The patient was taken to the operating room and induced into general anesthesia. The abdomen and both groins were prepped draped. The initial trocar was a left upper quadrant applied Medical trocar. Local was infiltrated prior to placement of each of the trocars. Once we had intraperitoneal insufflation, the midline 8 mm robotic port was placed. There were some adhesions on the right side. With the camera on the left-sided port, I used sharp dissection and divided omental adhesions to the anterior abdominal wall until we had adequate space to place the right upper quadrant trocar. Again local was infiltrated and under direct visualization, an 8 mm trocar was placed on the right side as well. We then moved the camera to the right-sided trocar and exchanged the 5 mm port for another 8 mm robotic port. We then brought the robot into the field. The patient was placed in 18 degree Trendelenburg. The camera arm was docked and targeted. We then placed the instruments in the operating 2 arms. These were positioned. The surgeon then broke scrub went to the robotic console. On looking at both the right and left side, it was evident that there were hernias bilaterally. I did go ahead and start on the right side. Dissection was started laterally and a peritoneum flap was created dissecting lateral to medial anteriorly to the inguinal canal structures. This flap was dissected broadly. Medially I dissected over to the right rectus abdominis muscle. At this location, I was then able to dissect down to the pubis. Bernard's ligament and the pubis were then carefully dissected. I crossed over the midline to the left rectus muscle. Dissection about 2 cm below the pubis and Bernard's ligament was carried out. Some dissection was carried out medially and a fat containing direct hernia was found. This was reduced. And then went back to the lateral aspect of the dissection and dissected the peritoneum posteriorly. I then worked on the indirect inguinal hernia sac. I dissected the transversalis fibers and gradually reduced the hernia. There was quite a bit of fatty tissue accompanying the hernia. This was likewise dissected free from the indirect hernia. Once the hernia was completely reduced, I then carefully dissected the peritoneum at least 4 cm posterior to the lower aspect of the hernia defect. I dissected more medially and found actually the patient had a femoral hernia which was fat containing as well. I reduced the femoral hernia in similar fashion. A dissected medially to the obturator canal. I then turned the camera and instruments towards the left inguinal hernia. In similar fashion, I created a peritoneal flap that began laterally and moved medially anterior to the inguinal
--- NOTE | 2023-07-15 10:36 | SUR.PHASEI ---
1035: Simple mask removed.
[2023-07-15] MEDS: ONDANSETRON INJ 4 MG/2 ML VIAL IV PUSH (10:47)
== END 2023-07-15 12:07 | disposition home or self-care (01) ==
PROVIDERS: PCP Emergency Medicine; Visit Provider Surgery
PROC: 8E0Y4CZ Robotic Assisted Procedure of Lower Extremity, Percutaneous Endoscopic Approach (ICD-10-PCS; CPT 49650; principal; 2023-07-15 07:30)
DX: K40.30 Unilateral inguinal hernia, with obstruction, without gangrene, not specified as recurrent (principal); K40.90 Unilateral inguinal hernia, without obstruction or gangrene, not specified as recurrent; I10 Essential (primary) hypertension; J45.30 Mild persistent asthma, uncomplicated; F41.9 Anxiety disorder, unspecified; F32.A Depression, unspecified; K21.9 Gastro-esophageal reflux disease without esophagitis; E78.00 Pure hypercholesterolemia, unspecified; E55.9 Vitamin D deficiency, unspecified; G25.81 Restless legs syndrome; Z79.51 Long term (current) use of inhaled steroids; Z87.891 Personal history of nicotine dependence
CPT/HCPCS: 49650; S2900; 36415; 86850; 86900; 86901; A9270; C1781; J0690; J1100; J1170; J1885; J2405; J2704; J3010; J7120

== ENCOUNTER 2023-08-15 20:47 | Emergency (ER) | payer MEDICARE, SELFPAY ==
[2023-08-15 20:51] VITALS: BP 143/64; PULSE 100; RESP 20; TEMP 36.5; O2SAT 97
--- NOTE | 2023-08-15 21:39 | ED.FEMALEGU ---
HPI - Female Genitourinary General Chief complaint: Urogenital-Female Stated complaint: unable to catheterize herself Time Seen by Provider: 08/15/23 20:54 History of Present Illness HPI Narrative: patient will self caths 3 times a day and follows up with Dr. Neal urology presents here with difficulty cathing herself a few hours ago, she has no abdominal pain or tenderness. She is concerned she might have a urinary tract infection. No systemic symptoms. Related Data Home Medications Medication Instructions Recorded Confirmed biotin 500 mcg capsule 500 mcg PO DAILY 04/07/23 08/12/23 bupropion HCl 150 mg tablet,12 hr 150 mg PO DAILY 04/07/23 08/12/23 sustained-release calcium polycarbophil 625 mg 625 mg PO DAILY 04/07/23 08/12/23 tablet (FiberCon) cholecalciferol (vitamin D3) 125 125 mcg PO DAILY 04/07/23 08/12/23 mcg (5,000 unit) tablet (Vitamin D3) cyclosporine 0.05 % eye drops in a 1 drp EACH EYE BID 04/07/23 08/12/23 dropperette (Restasis) fluticasone furoate 100 1 inh inhalation DAILY 04/07/23 08/12/23 mcg-vilanterol 25 mcg/dose inhalation powder (Breo Ellipta) vit C 226 mg-vit E 90 mg-copper 1 cap PO BID 04/07/23 08/12/23 0.8 mg-zinc oxide-lutein 5 mg capsule (PreserVision Lutein) gabapentin 300 mg capsule 300 mg PO .COMPLEX 06/08/23 08/12/23 losartan 25 mg tablet 25 mg PO DAILY 06/08/23 08/12/23 trazodone 50 mg tablet 50 mg PO QHS 06/08/23 08/12/23 lansoprazole 30 mg capsule,delayed 30 mg PO DAILY 07/09/23 08/12/23 release potassium chloride 20 mEq 20 meq PO DAILY 07/09/23 08/12/23 tablet,extended release(part/cryst) clonazepam 0.5 mg tablet 0.5 mg PO HS 07/10/23 08/12/23 vauasycq-wgvf-zagc 8 mg-folic 400 1 tablet PO DAILY 07/10/23 08/12/23 mcg-K 50 mcg-lutein 300 mcg tablet (Centrum Silver Women) Allergies Allergy/AdvReac Type Severity Reaction Status Date / Time propoxyphene [From Darvon] Allergy Severe Swelling Verified 08/10/23 08:04 of Lip/Tongue/Throat Review of Systems Review of Systems: All systems reviewed & are unremarkable except as noted in HPI and below PMFSH Past Medical History Medical History (Updated 08/16/23 @ 00:01 by Background Dajeremías) Acute blood loss anemia Anxiety Asthma Belching symptom Bloating Constipation Depression Diverticulosis Frequent UTI GERD (gastroesophageal reflux disease) Hx of adenomatous colonic polyps Hypertension Hyponatremia Insomnia Lipoma of colon Memory loss Mild persistent asthma without complication Pneumoperitoneum Presbycusis, bilateral Pure hypercholesterolemia Restless legs syndrome Spleen laceration Unsteady gait Vitamin D deficiency Surgical History Surgical History (Updated 08/10/23 @ 08:15 by Marci Frances MA) H/O inguinal hernia repair Robotic laparoscopic repair incarcerated right inguinal hernia, robotic laparoscopic repair left inguinal hernia, both repairs with mesh on 07/14 History of cholecystectomy History of tubal ligation Family History Family History Father Family history of transient ischemic attacks Patient's father is Cerebrovascular accident, Onset Age: 77 Sibling Family history of chronic obstructive pulmonary disease Family history of lung cancer Patient's brother is Mother Family history of transient ischemic attacks, Onset Age: 91 Other Family history of schizophrenia Social History Social History Social History: Surrogate medical decision maker: Che Field or Steffany Leeann, daughters. Code status: Full code. Caffeine-none Smoking packs per day: 1.5 Smoking cigarettes per day: 30.0 Years smoked: 5 Smoking pack-years: 7.50 Smoking status: Former smoker Tobacco type: cigarettes Second hand tobacco smoke exposure: No Smoking end date: 03/09/87 Alcohol intake
[2023-08-15 22:04] LABS: Appearance Urine Cloudy (Clear); Bacteria Urine None Seen /hpf; Bilirubin Urine Negative (Negative); Blood Urine Negative (Negative); Color Urine Yellow (Yellow); Glucose Urine UA Negative (Negative); Ketones Urine Trace mg/dL (Negative); Leukocyte Esterase Ur 3+ LEU/UL (Negative); Need Manual Microscopic Reviewed; Nitrate Urine Negative (Negative); Protein Urine 1+ mg/dL (Negative); RBC Urine 0-2 /hpf (0-2); Specific Grav Ur 1.019 (1.001-1.035); Squamous Epithelial Cell Urine None Seen /hpf (Few); WBC Urine >100 /hpf (0-3)
[2023-08-15 22:05] LABS: Add Urine Microscopic? YES
[2023-08-15] MEDS: NITROFURANTOIN MONOHYD MACROCR 100 MG CAP PO (22:32)
[2023-08-15 22:51] VITALS: BP 108/97; PULSE 67; RESP 18; O2SAT 97
[2023-08-15 23:18] VITALS: BP 101/56; PULSE 66; RESP 16; O2SAT 99
== END 2023-08-15 23:19 | disposition home or self-care (01) ==
PROVIDERS: Emergency Provider Emergency Medicine; PCP Emergency Medicine
DX: N39.0 Urinary tract infection, site not specified (principal); D64.9 Anemia, unspecified; F41.9 Anxiety disorder, unspecified; J45.909 Unspecified asthma, uncomplicated; F32.A Depression, unspecified; K21.9 Gastro-esophageal reflux disease without esophagitis; Z87.440 Personal history of urinary (tract) infections; I10 Essential (primary) hypertension; G25.81 Restless legs syndrome
CPT/HCPCS: 81001; 87086; 99283; A9270

== ENCOUNTER 2023-08-25 06:51 | Outpatient (CLI) | payer MEDICARE, SELFPAY ==
[2023-08-25 08:35] LABS: Alanine Aminotransferase 17 U/L (6-35); Albumin Level 3.8 g/dL (3.5-5.1); Alkaline Phosphatase 81 U/L (38-126); Anion Gap 4 mmol/L (4-12); Aspartate Amino Transferase 32 U/L (14-36); Bilirubin,Total 0.8 mg/dL (0.2-1.3); Blood Urea Nitrogen 14 mg/dL (7-17); Calcium 8.8 mg/dL (8.4-10.2); Carbon Dioxide 30 mmol/L (22-30); Chloride 98 mmol/L (98-107); Estimated Glomerular Filt Rate 53; Glucose 84 mg/dL (65-110); Potassium 3.9 mmol/L (3.4-5.0); Sodium 132 mmol/L (137-145)
[2023-08-25 08:52] LABS: Vitamin D 25 Hydroxy 62.4 ng/mL
== END 2023-08-25 06:52 | disposition home or self-care (01) ==
LOC: ANHLAB 06:53
PROVIDERS: PCP Emergency Medicine; Visit Provider Emergency Medicine
DX: E78.5 Hyperlipidemia, unspecified (principal); E55.9 Vitamin D deficiency, unspecified
CPT/HCPCS: 36415; 80053; 82306

== ENCOUNTER 2023-10-13 13:48 | Emergency (ER) | payer MEDICARE, SELFPAY ==
--- NOTE | ~2023-10-13 | CT_ITS ---
EXAMINATION: CT abdomen pelvis w con DATE: 10/13/2023 16:15 INDICATION: Constipation. TECHNIQUE: Computed tomography (CT) of the abdomen and pelvis was performed with 100 mL Omnipaque 350 intravenous contrast. Automated exposure control and iterative reconstruction technique were employe d. The dose-length product was 324.45 mGy-cm. COMPARISON: CT abdomen and pelvis 07/09/2023 FINDINGS: The visualized portions of the lung bases demonstrate mild atelectasis. Again seen are innu merable 1-2 mm nodules in the lungs, likely benign. There is a chronic 6 mm groundglass nodule in rig ht lower lobe, likely benign. No pleural effusion. The heart size is normal. No pericardial effusion. The liver is normal. There are changes of cholecystectomy. Calcifications in the spleen are consiste nt with old granulomatous disease. The pancreas, adrenal glands, and right kidney are normal. There i s a 6.8 cm cyst in left kidney. There are scattered diverticula in the colon. There is wall thickenin g of sigmoid colon with surrounding fat stranding, consistent with diverticulitis. There are no dilat ed loops of bowel. The appendix is normal. There is calcified atherosclerosis of the aorta and many o f the other arteries. There are no pathologically enlarged lymph nodes. There is a right inguinal her marty containing fat. There is no free intraperitoneal fluid. There is severe lumbar spondylosis. IMPRESSION: 1. Acute sigmoid diverticulitis. No perforation or abscess. Reviewed, dictated and finalized at location A.
[2023-10-13 13:54] VITALS: BP 105/65; PULSE 124; RESP 16; TEMP 36.6; O2SAT 100
[2023-10-13 15:19] LABS: Basophils Percent Auto 0.4 % (0.2-1.2); Eosinophils Absolute Auto 0.2 K/mm3 (0-0.3); Eosinophils Percent Auto 2.2 % (0-4.4); Hematocrit 35.7 % (37.0-47.0); Immature Granulocyte Absolute 0.04 K/mm3 (0.00-0.031); Immature Granulocyte Percent A 0.4 % (0-0.5); Lymphocytes Absolute Auto 1.04 K/mm3 (0.9-3.2); Lymphocytes Percent Auto 11.5 % (18.3-44.2); Mean Corpuscular HGB Conc 33.6 g/dl (32-36); Mean Corpuscular Volume 95.2 fl (80-100); Mean Platelet Volume 9.9 fl (7.4-10.4); Monocytes Percent Auto 11.4 % (2.6-8.5); Neutrophils Absolute Auto 6.7 K/mm3 (1.3-6.7); Neutrophils Percent Auto 74.1 % (45.5-73.1); Platelet Count Result 198 k/mm3 (150-375); Red Blood Count 3.75 M/mm3 (4.2-5.4); White Blood Count 9.1 K/mm3 (4.5-10.0)
[2023-10-13 15:25] VITALS: BP 131/72; PULSE 106; RESP 18; O2SAT 95
[2023-10-13 15:31] LABS: Alanine Aminotransferase 15 U/L (6-35); Albumin Level 3.6 g/dL (3.5-5.1); Alkaline Phosphatase 91 U/L (38-126); Anion Gap 9 mmol/L (4-12); Aspartate Amino Transferase 26 U/L (14-36); Bilirubin,Total 0.7 mg/dL (0.2-1.3); Blood Urea Nitrogen 16 mg/dL (7-17); Calcium 8.5 mg/dL (8.4-10.2); Carbon Dioxide 26 mmol/L (22-30); Chloride 94 mmol/L (98-107); Estimated CRCL calculation 30 ml/min; Estimated Glomerular Filt Rate 47; Glucose 102 mg/dL (65-110); Lipase 68 U/L (23-300); Potassium 4.1 mmol/L (3.4-5.0); Sodium 129 mmol/L (137-145)
--- NOTE | 2023-10-13 15:36 | ED.ABDPAIN ---
HPI - Abdominal Pain General Chief Complaint: Abdominal Pain Stated Complaint: constipated Time Seen by Provider: 10/13/23 15:12 History of Present Illness HPI narrative: 83-year-old female presenting to the emergency department for evaluation for constipation. Patient states that she had started a new medication for her memory and felt that this was giving her diarrhea. Patient began taking a lot of FiberCon and states that the diarrhea resolved and now she is concerned that she is constipated. Patient does complain lower abdominal pain. Patient denies any pain with urination. Patient denies any blood in her stool or urine. Related Data Home Medications Medication Instructions Recorded Confirmed biotin 500 mcg capsule 500 mcg PO DAILY 04/07/23 09/17/23 calcium polycarbophil 625 mg 625 mg PO DAILY 04/07/23 09/17/23 tablet (FiberCon) cholecalciferol (vitamin D3) 125 125 mcg PO DAILY 04/07/23 09/17/23 mcg (5,000 unit) tablet (Vitamin D3) cyclosporine 0.05 % eye drops in a 1 drp EACH EYE BID 04/07/23 09/17/23 dropperette (Restasis) fluticasone furoate 100 1 inh inhalation DAILY 04/07/23 09/17/23 mcg-vilanterol 25 mcg/dose inhalation powder (Breo Ellipta) vit C 226 mg-vit E 90 mg-copper 1 cap PO BID 04/07/23 09/17/23 0.8 mg-zinc oxide-lutein 5 mg capsule (PreserVision Lutein) gabapentin 300 mg capsule 300 mg PO .COMPLEX 06/08/23 09/17/23 lansoprazole 30 mg capsule,delayed 30 mg PO DAILY 07/09/23 09/17/23 release potassium chloride 20 mEq 20 meq PO DAILY 07/09/23 09/17/23 tablet,extended release(part/cryst) [id number] 8 mg-folic 400 1 tablet PO DAILY 07/10/23 09/17/23 mcg-K 50 mcg-lutein 300 mcg tablet (Centrum Silver Women) Allergies Allergy/AdvReac Type Severity Reaction Status Date / Time propoxyphene [From Darvon] Allergy Severe Swelling Verified 10/13/23 13:51 of Lip/Tongue/Throat Review of Systems Review of Systems: All systems reviewed & are unremarkable except as noted in HPI and below PMFSH Past Medical History Medical History Acute blood loss anemia Anxiety Asthma Belching symptom Bloating Constipation Depression Diverticulosis Encounter for other specified surgical aftercare Frequent UTI GERD (gastroesophageal reflux disease) Hx of adenomatous colonic polyps Hypertension Hyponatremia Incarcerated right inguinal hernia Insomnia Left inguinal hernia Lipoma of colon Memory loss Mild persistent asthma without complication Partial small bowel obstruction Pneumoperitoneum Presbycusis, bilateral Pure hypercholesterolemia Restless legs syndrome Right inguinal hernia Spleen laceration Unsteady gait Vitamin D deficiency Surgical History Surgical History H/O inguinal hernia repair Robotic laparoscopic repair incarcerated right inguinal hernia, robotic laparoscopic repair left inguinal hernia, both repairs with mesh on 07/14 History of cholecystectomy History of tubal ligation Family History Family History Father Family history of transient ischemic attacks Patient's father is Cerebrovascular accident, Onset Age: 77 Sibling Family history of chronic obstructive pulmonary disease Family history of lung cancer Patient's brother is Mother Family history of transient ischemic attacks, Onset Age: 91 Other Family history of schizophrenia Social History Social History Social History: Surrogate medical decision maker: Che Field or Steffany Leeann, daughters. Code status: Full code. Caffeine-none Smoking packs per day: 1.5 Smoking cigarettes per day: 30.0 Years smoked: 5 Smoking pack-years: 7.50 Smoking status: Former smoker Tobacco type: cigarettes S
[2023-10-13 16:40] LABS: Add Urine Microscopic? NO; Appearance Urine Clear (Clear); Bilirubin Urine Negative (Negative); Blood Urine Negative (Negative); Color Urine Yellow (Yellow); Glucose Urine UA Negative (Negative); Ketones Urine Negative (Negative); Leukocyte Esterase Ur Negative LEU/UL (Negative); Nitrate Urine Negative (Negative); Protein Urine Negative (Negative); Specific Grav Ur 1.015 (1.001-1.035); Urobilinogen Urine 0.2 mg/dL (<2.0)
[2023-10-13] MEDS: AMOXICILLIN/CLAVULANATE K 875-125 MG TAB 1 TABLET PO (17:18)
[2023-10-13 17:20] VITALS: BP 110/60; PULSE 93; RESP 18; O2SAT 98
== END 2023-10-13 17:20 | disposition home or self-care (01) ==
PROVIDERS: Emergency Provider Emergency Medicine; PCP Emergency Medicine
DX: K57.92 Diverticulitis of intestine, part unspecified, without perforation or abscess without bleeding (principal); I10 Essential (primary) hypertension; Z87.891 Personal history of nicotine dependence
CPT/HCPCS: 36415; 74177; 80053; 81003; 83690; 85025; 99284; A9270; Q9967

== ENCOUNTER 2023-10-17 13:34 | Emergency (ER) | payer MEDICARE, SELFPAY ==
[2023-10-17 14:09] VITALS: BP 137/63; PULSE 106; RESP 20; TEMP 36.4; O2SAT 98
--- NOTE | 2023-10-17 16:57 | ED.NAVMDI ---
HPI - Nausea/Vomiting/Diarrhea General Chief complaint: Nausea/Vomiting/Diarrhea Stated complaint: DIARRHEA Time Seen by Provider: 10/17/23 16:55 Source: patient and family (daughter Tee) Mode of arrival: ambulatory Limitations: no limitations History of Present Illness HPI Narrative: Patient diagnosed with diverticulitis 10/12/23. Prescribed course of Augmentin antibiotics, filled 10/13/23 with first dose taken that day and scheduled to finish course on Thursday (7 day course). She subsequently developed diarrhea and has been having multiple episodes. Her last colonoscopy was 3-4 years ago but does not otherwise regularly follow with a academic computing director regularly. No nausea/vomiting or fevers. Abdominal pain resolved. Has had decreased PO intake given her diarrhea is worse with meals. Has not appreciated gas eminating from vagina though she does self cath TID for the past 2+ years. This was secondary to internal injury/complications after her last colonoscopy in which she reports that there was splenic and injury. Sees a urologist for this. Related Data Home Medications Medication Instructions Recorded Confirmed biotin 500 mcg capsule 500 mcg PO DAILY 04/07/23 09/17/23 calcium polycarbophil 625 mg 625 mg PO DAILY 04/07/23 09/17/23 tablet (FiberCon) cholecalciferol (vitamin D3) 125 125 mcg PO DAILY 04/07/23 09/17/23 mcg (5,000 unit) tablet (Vitamin D3) cyclosporine 0.05 % eye drops in a 1 drp EACH EYE BID 04/07/23 09/17/23 dropperette (Restasis) fluticasone furoate 100 1 inh inhalation DAILY 04/07/23 09/17/23 mcg-vilanterol 25 mcg/dose inhalation powder (Breo Ellipta) vit C 226 mg-vit E 90 mg-copper 1 cap PO BID 04/07/23 09/17/23 0.8 mg-zinc oxide-lutein 5 mg capsule (PreserVision Lutein) gabapentin 300 mg capsule 300 mg PO .COMPLEX 06/08/23 09/17/23 lansoprazole 30 mg capsule,delayed 30 mg PO DAILY 07/09/23 09/17/23 release potassium chloride 20 mEq 20 meq PO DAILY 07/09/23 09/17/23 tablet,extended release(part/cryst) [id number]-htvs-lgsl 8 mg-folic 400 1 tablet PO DAILY 07/10/23 09/17/23 mcg-K 50 mcg-lutein 300 mcg tablet (Centrum Silver Women) Allergies Allergy/AdvReac Type Severity Reaction Status Date / Time propoxyphene [From Darvon] Allergy Severe Swelling Verified 10/17/23 14:09 of Lip/Tongue/Throat PMFSH Past Medical History Medical History Acute blood loss anemia Anxiety Asthma Belching symptom Bloating Constipation Depression Diverticulosis Encounter for other specified surgical aftercare Frequent UTI GERD (gastroesophageal reflux disease) Hx of adenomatous colonic polyps Hypertension Hyponatremia Incarcerated right inguinal hernia Insomnia Left inguinal hernia Lipoma of colon Memory loss Mild persistent asthma without complication Partial small bowel obstruction Pneumoperitoneum Presbycusis, bilateral Pure hypercholesterolemia Restless legs syndrome Right inguinal hernia Self-catheterizes urinary bladder Spleen laceration Unsteady gait Vitamin D deficiency Surgical History Surgical History H/O inguinal hernia repair Robotic laparoscopic repair incarcerated right inguinal hernia, robotic laparoscopic repair left inguinal hernia, both repairs with mesh on 07/14 History of cholecystectomy History of colonoscopy , complicated by splenic & injury per patient History of tubal ligation Family History Family History Father Family history of transient ischemic attacks Patient's father is Cerebrovascular accident, Onset Age: 77 Sibling Family history of chronic obstructive pulmonary disease Family history of lung cancer Patient's brother is Mother Family history of transient ischemic attacks, Onset Age: 91 Other Family
[2023-10-17] MEDS: SODIUM CHLORIDE 0.9% IV 1,000 ML 999 ML IV CONT (17:45)
[2023-10-17 17:53] LABS: Basophils Absolute Auto 0.1 K/mm3 (0.0-0.1); Eosinophils Absolute Auto 0.2 K/mm3 (0-0.3); Hematocrit 36.3 % (37.0-47.0); Hemoglobin 12.3 g/dL (12.0-15.0); Immature Granulocyte Absolute 0.06 K/mm3 (0.00-0.031); Lymphocytes Absolute Auto 0.95 K/mm3 (0.9-3.2); Lymphocytes Percent Auto 15.7 % (18.3-44.2); Mean Corpuscular HGB Conc 33.9 g/dl (32-36); Mean Corpuscular Hemoglobin 32.5 pg (26-34); Mean Corpuscular Volume 95.8 fl (80-100); Mean Platelet Volume 9.9 fl (7.4-10.4); Monocytes Absolute Auto 0.7 K/mm3 (0.1-0.6); Monocytes Percent Auto 11.1 % (2.6-8.5); Neutrophils Absolute Auto 4.1 K/mm3 (1.3-6.7); Neutrophils Percent Auto 67.2 % (45.5-73.1); Platelet Count Result 220 k/mm3 (150-375); Red Blood Count 3.79 M/mm3 (4.2-5.4); Red Cell Distribution Width 12.8 % (11.5-14.5); White Blood Count 6.1 K/mm3 (4.5-10.0)
[2023-10-17 18:04] LABS: Alanine Aminotransferase 20 U/L (6-35); Albumin Level 3.7 g/dL (3.5-5.1); Alkaline Phosphatase 109 U/L (38-126); Anion Gap 12 mmol/L (4-12); Aspartate Amino Transferase 31 U/L (14-36); Bilirubin,Total 0.8 mg/dL (0.2-1.3); Blood Urea Nitrogen 11 mg/dL (7-17); Calcium 8.8 mg/dL (8.4-10.2); Carbon Dioxide 26 mmol/L (22-30); Chloride 93 mmol/L (98-107); Estimated CRCL calculation 36 ml/min; Estimated Glomerular Filt Rate 60; Glucose 71 mg/dL (65-110); Magnesium 2.4 mg/dL (1.6-2.3); Potassium 3.9 mmol/L (3.4-5.0); Sodium 131 mmol/L (137-145)
[2023-10-17 20:05] LABS: Influenza A QL RT-PCR Negative (Negative); Influenza B QL RT-PCR Negative (Negative); RSV RNA, RT-PCR Negative (Negative); SARS-CoV-2 RNA PCR Negative (Negative)
== END 2023-10-17 19:46 | disposition home or self-care (01) ==
PROVIDERS: Emergency Provider Student in an Organized Health Care Education/Training Program; PCP Emergency Medicine
DX: R19.7 Diarrhea, unspecified (principal); E87.1 Hypo-osmolality and hyponatremia; I10 Essential (primary) hypertension; Z87.891 Personal history of nicotine dependence; Z20.822 Contact with and (suspected) exposure to COVID-19
CPT/HCPCS: 36415; 80053; 83735; 85025; 87493; 87636; 87637; 96360; 96361; 99283; J7030

== ENCOUNTER 2023-10-23 16:15 | Emergency (ER) | payer MEDICARE, SELFPAY ==
[2023-10-23 16:28] VITALS: BP 110/86; PULSE 114; RESP 18; TEMP 36.2; O2SAT 98
[2023-10-23 22:33] VITALS: BP 105/52; PULSE 95; RESP 20; TEMP 36.6; O2SAT 98
--- NOTE | 2023-10-24 00:17 | ED.FEMALEGU ---
HPI - Female Genitourinary General Chief complaint: Urogenital-Female Stated complaint: uti Time Seen by Provider: 10/24/23 00:14 Source: patient Mode of arrival: ambulatory Limitations: no limitations History of Present Illness HPI Narrative: This is an 83-year-old female who presents to the ED for chief complaint of urinary retention x1 day. Patient states that she normally self caths for past injury but has been unable to self cath today. She suspect she has UTI due to recent diarrheal illness. States that when she gets UTIs it is difficult to straight cath. Last straight cath was last night. endorses lower abdominal pressure. Denies fevers, chills, nausea, vomiting, Chest pain, shortness of breath, cough, GI bleeding symptoms. Related Data Home Medications Medication Instructions Recorded Confirmed biotin 500 mcg capsule 500 mcg PO DAILY 04/07/23 09/17/23 calcium polycarbophil 625 mg 625 mg PO DAILY 04/07/23 09/17/23 tablet (FiberCon) cholecalciferol (vitamin D3) 125 125 mcg PO DAILY 04/07/23 09/17/23 mcg (5,000 unit) tablet (Vitamin D3) cyclosporine 0.05 % eye drops in a 1 drp EACH EYE BID 04/07/23 09/17/23 dropperette (Restasis) fluticasone furoate 100 1 inh inhalation DAILY 04/07/23 09/17/23 mcg-vilanterol 25 mcg/dose inhalation powder (Breo Ellipta) vit C 226 mg-vit E 90 mg-copper 1 cap PO BID 04/07/23 09/17/23 0.8 mg-zinc oxide-lutein 5 mg capsule (PreserVision Lutein) gabapentin 300 mg capsule 300 mg PO .COMPLEX 06/08/23 09/17/23 lansoprazole 30 mg capsule,delayed 30 mg PO DAILY 07/09/23 09/17/23 release potassium chloride 20 mEq 20 meq PO DAILY 07/09/23 09/17/23 tablet,extended release(part/cryst) [id number]-ddba-lgoe 8 mg-folic 400 1 tablet PO DAILY 07/10/23 09/17/23 mcg-K 50 mcg-lutein 300 mcg tablet (Centrum Silver Women) Allergies Allergy/AdvReac Type Severity Reaction Status Date / Time propoxyphene [From Darvon] Allergy Severe Swelling Verified 10/17/23 14:09 of Lip/Tongue/Throat Review of Systems Review of Systems: All systems as dictated in [facility] Past Medical History Medical History Acute blood loss anemia Anxiety Asthma Belching symptom Bloating Constipation Depression Diverticulosis Encounter for other specified surgical aftercare Frequent UTI GERD (gastroesophageal reflux disease) Hx of adenomatous colonic polyps Hypertension Hyponatremia Incarcerated right inguinal hernia Insomnia Left inguinal hernia Lipoma of colon Memory loss Mild persistent asthma without complication Partial small bowel obstruction Pneumoperitoneum Presbycusis, bilateral Pure hypercholesterolemia Restless legs syndrome Right inguinal hernia Self-catheterizes urinary bladder Spleen laceration Unsteady gait Vitamin D deficiency Surgical History Surgical History H/O inguinal hernia repair Robotic laparoscopic repair incarcerated right inguinal hernia, robotic laparoscopic repair left inguinal hernia, both repairs with mesh on 07/14 History of cholecystectomy History of colonoscopy , complicated by splenic & injury per patient History of tubal ligation Family History Family History Father Family history of transient ischemic attacks Patient's father is Cerebrovascular accident, Onset Age: 77 Sibling Family history of chronic obstructive pulmonary disease Family history of lung cancer Patient's brother is Mother Family history of transient ischemic attacks, Onset Age: 91 Other Family history of schizophrenia Social History Social History Social History: Surrogate medical decision maker: Che Field or Steffany Bradshaw, daughters. Code status
[2023-10-24 01:10] LABS: Add Urine Microscopic? YES; Appearance Urine Cloudy (Clear); Bacteria Urine 4+ /hpf; Bilirubin Urine Negative (Negative); Blood Urine Negative (Negative); Color Urine Dark Yellow (Yellow); Glucose Urine UA Negative (Negative); Hyaline Casts Urine Present /lpf; Ketones Urine Trace mg/dL (Negative); Leukocyte Esterase Ur 3+ LEU/UL (Negative); Mucus Urine Present /lpf; Need Manual Microscopic Reviewed; Nitrate Urine Negative (Negative); Non Pathogenic Casts 0-2; Protein Urine Trace mg/dL (Negative); RBC Urine 0-2 /hpf (0-2); Specific Grav Ur 1.021 (1.001-1.035); Squamous Epithelial Cell Urine None Seen /hpf (Few); WBC Urine >100 /hpf (0-3)
[2023-10-24] MEDS: CEPHALEXIN 500 MG CAPSULE PO (01:50)
[2023-10-24 01:53] VITALS: BP 109/61; PULSE 92; RESP 19; TEMP 36.9; O2SAT 98
== END 2023-10-24 01:54 | disposition home or self-care (01) ==
PROVIDERS: Emergency Provider Physician Assistant; PCP Emergency Medicine
DX: N39.0 Urinary tract infection, site not specified (principal); I10 Essential (primary) hypertension; J45.30 Mild persistent asthma, uncomplicated; E78.00 Pure hypercholesterolemia, unspecified; E55.9 Vitamin D deficiency, unspecified; K21.9 Gastro-esophageal reflux disease without esophagitis; G25.81 Restless legs syndrome; Z86.010 Personal history of colon polyps; Z87.891 Personal history of nicotine dependence; Z90.49 Acquired absence of other specified parts of digestive tract; Z79.899 Other long term (current) drug therapy
CPT/HCPCS: 81001; 87077; 87086; 87088; 87186; 99283; A9270

== ENCOUNTER 2023-12-24 10:40 | Outpatient (CLI) | payer MEDICARE, SELFPAY ==
[2023-12-24 11:41] LABS: Alanine Aminotransferase 21 U/L (6-35); Albumin Level 3.7 g/dL (3.5-5.1); Alkaline Phosphatase 95 U/L (38-126); Anion Gap 5 mmol/L (4-12); Aspartate Amino Transferase 31 U/L (14-36); Bilirubin,Total 0.8 mg/dL (0.2-1.3); Blood Urea Nitrogen 11 mg/dL (7-17); Calcium 8.7 mg/dL (8.4-10.2); Carbon Dioxide 33 mmol/L (22-30); Chloride 94 mmol/L (98-107); Estimated Glomerular Filt Rate 47; Glucose 85 mg/dL (65-110); Potassium 4.3 mmol/L (3.4-5.0); Sodium 132 mmol/L (137-145)
[2023-12-24 12:26] LABS: Vitamin D 25 Hydroxy 75.9 ng/mL
== END 2023-12-24 10:41 | disposition home or self-care (01) ==
LOC: ANHLAB 10:45
PROVIDERS: PCP Emergency Medicine; Visit Provider Emergency Medicine
DX: E55.9 Vitamin D deficiency, unspecified (principal); E78.5 Hyperlipidemia, unspecified
CPT/HCPCS: 36415; 80053; 82306

== ENCOUNTER 2024-02-03 11:30 | Outpatient (CLI) | payer MEDICARE, SELFPAY ==
--- NOTE | ~2024-02-03 | MM_ITS ---
EXAMINATION: MM screening david BI w becka HISTORY: Screening TECHNIQUE: Craniocaudal and mediolateral oblique 3-D tomosynthesis images were obtained and synthetic 2-D images were generated. CAD analysis was submitted and interpreted. COMPARISON: Comparison to multiple prior studies sequentially, with oldest reviewed study dated 10/2015. BREAST PARENCHYMAL COMPOSITION: Not dense: There are scattered areas of fibroglandular density. FINDINGS: There is no evidence of suspicious mass, calcification, or architectural distortion to sugg est malignancy in either breast. There has been no suspicious interval change. IMPRESSION: 1. No mammographic evidence of malignancy. 2. Recommend routine screening mammography in one year. BI-RADS Category 1: Negative Reviewed, dictated and finalized at location B. K L[facility]ER
== END 2024-02-03 11:31 | disposition home or self-care (01) ==
LOC: MICIMG 11:32
PROVIDERS: PCP Emergency Medicine; Visit Provider Emergency Medicine
DX: Z12.31 Encounter for screening mammogram for malignant neoplasm of breast (principal)
CPT/HCPCS: 77063; 77067

== ENCOUNTER 2024-05-04 06:44 | Outpatient (CLI) | payer MEDICARE, SELFPAY ==
--- OUTSIDE RECORDS SUMMARY | 2024-05-04 06:48 | XMS_ITS | Clinical Summary ---
Author Organization [facility] at [facility] [place] Address [address] [place] [address] Care Team Providers Care Surgeon'S Assistant Name Role Phone Evangelista Carlson MD Primary Care Provide r Berny Vazquez MD Unavailable [phone] Allergies Active Allergy Reactions Criticality Noted Date Comments Propoxyphene Swelling Medium Medications clonazePAM (KlonoPIN) 0.5 mg tablet Take 1 tablet (0.5 mg total) by mouth daily 05/06/19 21 Active lansoprazole (PREVACID) 30 mg capsule Take by mouth daily before breakfast 06/16/19 21 Active cyclosporine (RESTASIS OPHT) Administer 1 drop into affected eye(s) daily as needed Active fluticasone propionate (FLONASE) 50 mcg/actuation nasal spray Administer 2 sprays into each nostril daily 11/03/19 21 Active calcium carbonate/stiven min D3 (CALTRATE 600 PLUS D ORAL) Take 1 tablet by mouth daily Active polycarbophil (FIBERCON) 625 mg tablet Take 2 tablets (1,250 mg total) by mouth daily Active vit C/E/Zn/coppr/l utein/zeaxan (PRESERVISION AREDS-2 ORAL) Take 1 tablet by mouth daily Active biotin 2,500 mcg capsule Take 2 capsules by mouth daily Active folic acid/multivit- min/lutein (CENTRUM SILVER ORAL) Take 1 tablet by mouth daily Active cholecalcifero l, vitamin D3, (VITAMIN D3 ORAL) Take 2,000 Units by mouth daily Active traZODone (DESYREL) 50 mg tablet 06/11/19 22 Active trimethoprim (TRIMPEX) 100 mg tablet 05/28/19 22 Active potassium chloride ER 20 mEq CR tablet 06/21/19 23 Active furosemide (LASIX) 40 mg tablet 08/28/19 23 Active Breo Ellipta 100-25 mcg/dose diskus inhaler 09/11/19 23 Active buPROPion SR (WELLBUTRIN SR) 150 mg 12 hr tablet 06/18/19 23 Active estradioL (ESTRACE) 0.01 % (0.1 mg/gram) vaginal cream INSERT 1 GRAM VAGINALLY 2 NIGHTS PER WEEK 12/12/19 24 Active methenamine (HIPREX) 1 gram tablet Take 1 tablet (1,000 mg total) by mouth 2 (two) times a day 12/11/19 24 Active losartan (COZAAR) 25 mg tablet 12/26/19 24 Active gabapentin (NEURONTIN) 300 mg capsule TAKE 2 CAPSULES BY MOUTH EVERY EVENING AND AT BEDTIME 360 capsule 3 04/25/19 25 Active gabapentin (NEURONTIN) 300 mg capsule 2 CAPSULES IN THE EVENING& 2 CAPSULES AT BEDTIME 120 capsule 3 12/27/19 24 025 Discontinued Active Problems Problem Noted Date Diagnosed Date RLS (restless legs syndrome) 09/15/2022 Tardive dyskinesia 07/15/2021 Asthma 01/14/2021 Recurrent major depressive disorder, in partial remission 01/14/2021 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 She had been exposed to an atypical antipsychotic for the treatment of depression for the past 10 years at least. This seems to coincide with when her tremor started. It was worse in the past 2 year with worsened gait and balance and slowness. As such the most likely diagnosis was drug induced parkinsonism. Idiopathic PD remained on the differential diagnosis as it could be unmasked by aripiprazole but she has been off of that for close to 1.5 years now. She had no eye movement problems and although she had some mild cognitive problems, these were not the major feature of her illness making PSP much less likely. She also did not have major autonomic or cerebellar problems making MSA much less likely. She has now been off of aripiprazole for 18 months. She was much better from a parkinsonism standpoint. 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 We discussed this today. She is not interested in PT but will exercise at home and I gave info on APDA youtube channel exercises. Right now, she is not bothered enough by her symptoms to start treatment and she could continue to improve in the next 6 months. If symptoms become more bothersome, we would consider starting carbidopa/levodopa to treat parkinson disease. She also has some mouth and bilateral feet movements which I believe to be TD, likely from the aripiprazole (and other antipsychotic) usage over the last decade. I would be concerned that treating this with TBZ could worsen parkinsonism so we will hold off on that. She did not note worsening of mood when she stopped aripiprazole. She continues on clonazepam and bupropion for mood. She is no longer on escitalopram and has done fine without it. She also takes trazodone for sleep. She is bothered by restless legs. We will first try escalating doses of gabapentin but if this is not helpful, we could try carbi/levo ER or even a dopamine agonist (but given age, would have to be done cautiously). Recs: 1. Start APDA youtube channel exercises. 2. Consider levodopa trial if parkinsonism worsens. 3. Increase gabapentin and if no improvement in RLS, we will try carbi/levo ER and if no improvement, a dopamine agonist. 4. Stay off of all dopamine blocking agents for depression. 5. No treatment for TD as this may worsen mood and parkinsonism. Assessment & Plan (03/31/2022 11:14 AM [facility]): She had stage 3 parkinsonism characterized by relatively symmetric bradykinesia, rigidity, action and postural tremor as well as postural instability with impaired gait. She had been exposed to an atypical antipsychotic for the treatment of depression for the past 10 year at least. This seems to coincide with when her tremor started. It was worse in the past 2 year with worsened gait and balance and slowness. As such the most likely diagnosis was drug induced parkinsonism. Idiopathic PD remained on the differential diagnosis as it could be unmasked by aripiprazole. She had no eye movement problems and although she had some mild cognitive problems, these were not the major feature of her illness making PSP much less likely. She also did not have major autonomic or cerebellar problems making MSA much less likely. She has now been off of aripiprazole for 12 months. She was much better. 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 We discussed this today. She is not interested in PT but will exercise at home. Right now, she is not bothered enough by her symptoms to start treatment and she could continue to improve in the next 6 months. If symptoms become more bothersome, we would consider starting carbidopa/levodopa to treat parkinson disease. 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 I would be concerned that treating this with TBZ could worsen parkinsonism so we will hold off on that. She did not note worsening of mood when she stopped aripiprazole. She continues on clonazepam just once daily and escitalopram. She had not discussed Wellbutrin with her PMD. she She is bothered by restless legs. We will check some labs today. Certainly levodopa could be used to treat the restless legs as could gapapentin. Recs: 1. Start exercise. 2. Consider levodopa trial. 3. Check labs for restless legs. 4. Could consider gabapentin for restless legs . 5. Stay off of all dopamine blocking agents for depression. Assessment & Plan (07/15/2021 1:36 PM CDT): She had stage 3 parkinsonism characterized by relatively symmetric bradykinesia, rigidity, action and postural tremor as well as postural instability with impaired gait. She had been exposed to an atypical antipsychotic for the treatment of depression for the past 10 year at least. This seems to coincide with when her tremor started. It was worse in the past 2 year with worsened gait and balance and slowness. As such the most likely diagnosis was drug induced parkinsonism. Idiopathic PD remained on the differential diagnosis as it could be unmasked by aripiprazole. She had no eye movement problems and although she had some mild cognitive problems, these were not the major feature of her illness making PSP much less likely. She also did not have major autonomic or cerebellar problems making MSA much less likely. She has now been off of aripiprazole for 6 months. She believes her hand dexterity and tremor have improved and I agree based on comparing exams from last visit till now. 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 We discussed this today. She is not interested in PT but should start APDA youtube channel exercises. Right now, she is not bothered enough by her symptoms to start treatment and she could continue to improve in the next 6 months. If symptoms become more bothersome, we would consider starting carbidopa/levodopa to treat parkinson disease. 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 I would be concerned that treating this with TBZ could worsen parkinsonism so we will hold off on that. She did not note worsening of mood when she stopped aripiprazole. She continues on clonazepam just once daily and citalopram. Since she does have some residual depression with fatigue and loss of motivation, she could consider trying bupropion with her PMD. She is bothered by trouble starting her urinary flow and sense of incomplete emptying. She could consider tamsulosin with her PMD. Recs: 1. Start APDA youtube exercises. 2. Consider levodopa trial. 3. Could consider tamsulosin with urologist for bladder. 4. Could consider addition of bupropion with PMD for depression/anxiety. 5. Stay off of all dopamine blocking agents for depression. 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 She had been exposed to an atypical antipsychotic for the treatment of depression for the past 10 year at least. This seems to coincide with when her tremor started. It was worse in the past 2 year with worsened gait and balance and slowness. As such the most likely diagnosis was drug induced parkinsonism. Idiopathic PD remained on the differential diagnosis as it could be unmasked by aripiprazole. However, the relatively symmetric onset and progression argues against this. She had no eye movement problems and although she had some cognitive problems these were not the major feature of her illness making PSP much less likely. She also did not have major autonomic or cerebellar problems making MSA much less likely. At this point it is prudent to taper and discontinue aripiprazole. I gave her the schedule to taper by 1/2 for 3 days then stop. I would like to reevaluate her in 6 months with our Staff Nurse Anesthetist and repeat a video at that time. If she is better and doing well then we will just watch her as needed. If she still has parkinsonism then I would consider starting carbidopa/levodopa to treat parkinson disease. She was already prescribed buspirone to help with her depression so hopefully this will buffer the loss of the aripiprazole for her depression. She would benefit from seeing a psychiatrist as we transition her medications, unfortunately she does not currently see one. Her PMD has been taking care of her depression and should be aware of our changes. He may make a recommendation for a local psychiatrist. Of note her NPT was quite normal. Tremors of nervous system 07/31/2020 Gait disorder 07/31/2020 Inflamed seborrheic keratosis 11/01/2014 Seborrheic eczema 11/01/2014 Hemangioma of skin 11/01/2014 Immunizations Immunization Administration Dates Next Due Influenza, Quadrivalent, Hig h Dose, Preservative Free, Intrr 11/23/2019 Influenza, Trivalent, Adjuvanted, Intramuscular 12/06/2018,12/23/2017 Influenza, Trivalent, High D ose, Split, Preservative Free, Intramuscular 01/06/2017,02/11/2015 Pfizer SARS-CoV-2 Monovalent Vaccination (12+ Yrs) PURPLE 04/24/2020,04/03/2020 Pneumococcal Conjugate PCV 13 01/13/2017 Tdap 01/06/2017 Surgical History Surgery Date Site/Laterality Comments ORAL SURGERY CATARACT EXTRACTION GALLBLADDER SURGERY 03/09/1997 - 03/08/1998 TUBAL LIGATION 03/09/1978 - 03/08/1979 Medical History Medical History Date Comments Asthma Tremors of nervous system Gait disorder Family History Medical History Relation Name Comments Lung disease Brother Tuberculosis Brother Accident Father Stroke Father Transient ischemic attack Mother Parkinsonism Neg Hx Relation Name Status Comments Brother (Age 80) Father (Age 26) Mother (Age 92) Social History Tobacco Use Types Packs/Day Years Used Date Smoking Tobacco: Former Smokeless Tobacco: Never Tobacco Cessation:Counseling Given: Not Answered AUDIT-C Answer Date Recorded Q1: How often do you have a drink containing alc ohol? Never 12/26/2020 Average Number of Drinks Not on file 021 Q3: How often do you have si x or more drinks on one occasion? 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 Not on file Not on file Obstetrics History Last Filed Vital Signs Vital Sign Reading Time Taken Comments Blood Pressure 112/61 09/15/2022 9:40 AM CDT Pulse 93 09/15/2022 9:40 AM CDT Temperature 37.1 C (98.8 F) 09/15/2022 9:40 AM CDT Respiratory Rate - - Oxygen Saturation - - Inhaled Oxygen Concentration - - Weight 60.6 kg (133 lb 9.6 oz) 09/15/2022 9:40 A M CDT Height 165.1 cm (5' 5 ) 09/15/2022 9:40 AM CDT Body Mass Index 22.23 09/15/2022 9:40 AM CDT Plan of Treatment Health Maintenance Due Date Last Done Comments Fall Risk Assessment 1940 Hepatitis B Screening 01/24/1958 Zoster Vaccine (1 of 2) 01/24/1988 Well Visit 65+ 2003 Pneumococcal vaccine 65+ (2 of 2 - PPSV23) 03/10/2017 01/13/2017 Depression Screening 03/31/2023 03/31/2022 Covid-19 Vaccine (3 - 2023-2 5 season) 2023 04/24/2020, 04/03/2020 Influenza Vaccine (#1) 2023 , 12/06/2018, 12/23/2017, Additional history exists DTaP/Tdap/Td Vaccine (2 - Td or Tdap) 01/06/2027 01/06/2017 Insurance MEDICARE MEDICARE [facility] MEDICARE [facility] Care Teams Surgeon'S Assistant Relationship Specialty Start Date End Date Evangelista Carlson MD [address] [facility] [place] [address] PCP - General Emergency Medicine 07/26/20 Berny Vazquez MD [address] [place] [id number] Referring Physician Allergy and Immunology 01/11/21
--- OUTSIDE RECORDS SUMMARY | 2024-05-04 06:48 | XMS_ITS | Referral Summary ---
Author Organization [facility] at [facility] [place] Address [address] [place] [address] Care Team Providers Care Lsw Name Role Phone Evangelista Carlson MD Primary Care Provide r Berny Vazquez MD Unavailable [phone] Allergies Active Allergy Reactions Criticality Noted Date [...] parkinsonism. Assessment & Plan (03/31/2022 11:14 AM [facility]): She had stage 3 parkinsonism characterized by [...] depression. Assessment & Plan (01/14/2021 12:22 PM EVENTS TRAFFIC CONTROLLER): She had stage 3 parkinsonism characterized by [...] reevaluate her in 6 months with our Prenatal Genetic Counselor and repeat a video at that time. 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
--- OUTSIDE RECORDS SUMMARY | 2024-05-04 06:48 | XMS_ITS | Clinical Summary ---
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
--- OUTSIDE RECORDS SUMMARY | 2024-05-04 06:48 | XMS_ITS | Encounter Summary ---
Author Organization [facility] Address [address] [place] [address] Care Team Providers Care Rn Physician Office Name Role Phone Unavailable Primary Care Provider Unavailabl e Encounter Details Date Type Department Care Team (Late st Contact Info) Description 10/11/1999 Outpatient Historical [facility] George Mendoza Social History Tobacco Use Types Packs/Day Years Used Date Smoking Tobacco: Never Assessed Comments Unknown Sex and Gender Information Value Date Recorded Sex Assigned at Not on file Legal Sex Female 4:46 AM MIND READER Gender Identity Not on file Sexual Orientation Not on file documented as of this encounter Plan of Treatment Not on file documented as of this encounter Visit Diagnoses Not on filedocumented in this encounter
--- OUTSIDE RECORDS SUMMARY | 2024-05-04 06:48 | XMS_ITS | Clinical Summary ---
Author Organization [facility] Address [address] [place] [address] Care Team Providers Care Merchandise Complaint Adjuster Name Role Phone Unavailable Primary Care Provider Unavailabl e Social History Tobacco Use Types Packs/Day Years Used Date Smoking Tobacco: Never Assessed Comments Unknown Sex and Gender Information Value Date Recorded Sex Assigned at Not on file Legal Sex Female 4:09 PM CDT Gender Identity Not on file Sexual Orientation Not on file Plan of Treatment Health Maintenance Due Date Last Done Comments DTaP, Tdap and Td Vaccines ( 1 - Tdap) 1957 Zoster Vaccines (1 of 2) 01/24/1988 Pneumococcal Vaccine: 65+ Ye ars (1 of 1 - PCV) 2003 RSV Immunization or 60+ Years (1 - 1-dose 75+ series) 2013 COVID-19 Vaccine (2023-2 5 season) 2023 Influenza Adult (#1) 2023 Meningococcal B Vaccine Aged Out No l onger eligible based on patient's age to complete this topic Meningococcal Vaccine Aged Out No hector lesli eligible based on patient's age to complete this topic RSV Immunizations Under 20 Months Aged Out No longer eligible based on patient's age to complete this topic
--- OUTSIDE RECORDS SUMMARY | 2024-05-04 06:48 | XMS_ITS | Encounter Summary ---
Author Organization [facility] Address [address] [place] [address] Care Team Providers Care Powder And Primer Canning Leader Name Role Phone Unavailable Primary Care Provider Unavailabl e Encounter Details Date Type Department Care Team (Late st Contact Info) Description 09/06/1998 Outpatient Historical [facility] George Mendoza Social History Tobacco Use Types Packs/Day Years Used Date Smoking Tobacco: Never Assessed Comments Unknown Sex and Gender Information Value Date Recorded Sex Assigned at Not on file Legal Sex Female 4:46 AM COMPOUND SPECIALIST Gender Identity Not on file Sexual Orientation Not on file documented as of this encounter Plan of Treatment Not on file documented as of this encounter Visit Diagnoses Not on filedocumented in this encounter
--- OUTSIDE RECORDS SUMMARY | 2024-05-04 06:48 | XMS_ITS | Encounter Summary ---
Author Organization [facility] Address 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
--- OUTSIDE RECORDS SUMMARY | 2024-05-04 06:48 | XMS_ITS | Encounter Summary ---
Author Organization [facility] Address 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
[2024-05-04 08:07] LABS: Potassium 3.7 mmol/L (3.4-5.0)
[2024-05-04 08:11] LABS: Alanine Aminotransferase 21 U/L (6-35); Albumin Level 3.5 g/dL (3.5-5.1); Alkaline Phosphatase 108 U/L (38-126); Anion Gap 4 mmol/L (4-12); Aspartate Amino Transferase 32 U/L (14-36); Bilirubin,Total 0.5 mg/dL (0.2-1.3); Blood Urea Nitrogen 26 mg/dL (7-17); Calcium 8.5 mg/dL (8.4-10.2); Carbon Dioxide 34 mmol/L (22-30); Chloride 101 mmol/L (98-107); Estimated Glomerular Filt Rate 43; Glucose 80 mg/dL (65-110); Sodium 139 mmol/L (137-145)
[2024-05-04 09:50] LABS: Vitamin D 25 Hydroxy 64.1 ng/mL
== END 2024-05-04 06:45 | disposition home or self-care (01) ==
LOC: ANHLAB 06:46
PROVIDERS: PCP Emergency Medicine; Visit Provider Emergency Medicine
DX: E78.5 Hyperlipidemia, unspecified (principal); E55.9 Vitamin D deficiency, unspecified
CPT/HCPCS: 36415; 80053; 82306

== ENCOUNTER 2024-05-29 12:10 | Inpatient (IN) | payer MEDICARE, SELFPAY ==
[2024-05-29] VITALS (17 sets, daily range): BP systolic 83–127; BP diastolic 53–95; PULSE 9–125; RESP 14–24; TEMP 37; O2SAT 94–100
--- NOTE | ~2024-05-29 | CT_ITS ---
EXAMINATION:CT diagnostic chest wo con DATE: 05/29/2024 22:09 INDICATION: Pneumonia. Pulmonary edema. TECHNIQUE: Computed tomography (CT) of the chest was performed without intravenous contrast. Automate d exposure control and iterative reconstruction technique were employed. The dose-length product (DLP ) was 158.65 mGy-cm. COMPARISON: CT abdomen and pelvis 10/13/2023, 02/12/22 FINDINGS: Again seen is septal thickening in the lungs with an inferior predominance. Again seen are subpleural bands in the lower lobes. There are numerable nodules in the lungs in a random distributio n measuring up to 4 mm, many of which are stable. No pleural effusion. The heart size is normal. No p ericardial effusion. There are no pathologically enlarged lymph nodes. There are changes of cholecyst ectomy. Calcifications in the spleen are consistent with old granulomatous disease. There is moderate thoracic spondylosis and severe lumbar spondylosis. IMPRESSION: 1. Diffuse lung disease similar to prior exams, likely a combination of granulomatous disease and mil d chronic lung disease. Mild pulmonary edema or mild acute pneumonia cannot be excluded. Reviewed, dictated and finalized at location A. IMPRESSION: 1. Diffuse lung disease similar to prior exams, likely a combination of granulo matous disease and mild chronic lung disease. Mild pulmonary edema or mild acut e pneumonia cannot be excluded.
--- NOTE | ~2024-05-29 | CT_ITS ---
CTA chest PE protocol Ordering provider: rAmin Chiu MD History: 84 years Female with . r/o PE . Comparison: May 29, 2024 Technique: CT angiogram chest was performed following timed intravenous injection of contrast. Thin s lice axial images and reformatted coronal images were obtained. Three dimensional reformatted images of the chest were also obtained using a Night Zookeeper workstation. . Automated exposure control and iterati ve reconstruction technique were employed. The dose-length product was 339.71 mGy-cm. 100 mL Omnipaqu e 350 was given IV. Findings: PULMONARY ARTERIES: No pulmonary embolus. VISUALIZED THORACIC INLET: Normal. MEDIASTINUM: Aorta/coronary arteries: Mild atheromatous disease. Heart/other: The heart is not enlarged. Lymph nodes: No mediastinal or hilar adenopathy. Prevascular lymph node is seen measuring 1 cm. Small paratracheal lymph nodes are noted. Precarinal l ymph node is seen measuring 1.5 cm. LUNGS: Bilateral small pleural effusion more on the right side with adjacent atelectasis. Multilevel nodules are seen in the lungs bilaterally which are unchanged from previous examination. N o pulmonary masses. No pneumothorax. VISUALIZED UPPER ABDOMEN: Status post cholecystectomy. Hypodensity seen in the left kidney upper pole most likely simple cyst measuring 5.5 cm Otherwise, the visualized upper abdomen is normal. MUSCULOSKELETAL: Soft tissues: The superficial soft tissues are normal. Bones: Age appropriate degenerative changes of the spine. IMPRESSION: 1. No pulmonary embolism. 2. Bilateral basal atelectasis versus pneumonia with minimal effusion. 3. Multiple tiny nodules unchanged from previous examination. 4. Slightly enlarged lymph nodes in the precarinal area. Reviewed, dictated and finalized at location A.
--- NOTE | ~2024-05-29 | MR_ITS ---
EXAMINATION: MR brain/brain stem wo con DATE: 06/02/2024 11:29 INDICATION: Metabolic encephalopathy. TECHNIQUE: Magnetic resonance imaging (MRI) of the brain and brainstem was performed without intraven ous contrast. COMPARISON: Head CT 05/29/2024 FINDINGS: There are scattered areas of nonspecific increased T2-weighted signal intensity in the cere bral white matter, which is within normal limits for the patient's age. There is no intracranial hemo rrhage, acute infarction, or abnormal intracranial mass lesion. The ventricles are normal in size. Th e paranasal sinuses are clear. There are likely changes of ocular lens replacement surgeries. The mas toid air cells are normal. IMPRESSION: 1. Normal aging brain. Reviewed, dictated and finalized at location A. IMPRESSION: 1. Normal aging brain.
--- NOTE | ~2024-05-29 | XR_ITS ---
EXAMINATION: XR chest 1V portable DATE: 05/30/2024 06:09 INDICATION: Pulmonary edema. TECHNIQUE: A single frontal view of the chest was obtained on 2 radiographs. COMPARISON: Chest single view 05/29/2024, chest CT 05/29/2024 FINDINGS: There are interstitial opacities in the lower lung zones. No pleural effusion or pneumothor ax. The heart size is normal. IMPRESSION: 1. Interstitial opacities in the lower lung zones, consistent with atelectasis/scarring versus mild p ulmonary edema. Reviewed, dictated and finalized at location A. IMPRESSION: 1. Interstitial opacities in the lower lung zones, consistent with atelectasis/ scarring versus mild pulmonary edema.
--- NOTE | ~2024-05-29 | XR_ITS ---
XR chest 1V portable DATE: 05/29/2024 19:51 INDICATION: Tachycardia TECHNIQUE: Portable upright AP chest on 8 05/29/2024 at 1942 hours COMPARISON: 07/09/2022 PA and lateral chest FINDINGS: Normal heart size. Aortic calcification and mild unfolding. No hilar or mediastinal enlarge ment. Compared to 07/09/2022 there is mild pulmonary vascular congestion and mild prominence of the minor fis sure in addition to some Tyaler B-lines, consistent with subpleural and pulmonary interstitial edema. Diffuse osteopenia. IMPRESSION: Pulmonary vascular congestion, subpleural and pulmonary interstitial edema, new since 07/09 Reviewed, dictated and finalized at location A. IMPRESSION: Pulmonary vascular congestion, subpleural and pulmonary interstitia l edema, new since 07/09/2022
--- NOTE | ~2024-05-29 | XR_ITS ---
EXAMINATION: XR chest 1V portable DATE: 05/31/2024 05:56 INDICATION: Pulmonary edema. TECHNIQUE: A single frontal view of the chest was obtained. COMPARISON: Chest view 05/30/2024 FINDINGS: The lungs demonstrate a diffuse interstitial pattern. There are airspace opacities in left lower lung zone. No pleural effusion or pneumothorax. The heart size is normal. IMPRESSION: 1. Stable interstitial pattern in the lungs, consistent with mild chronic lung disease versus mild pu lmonary edema. 2. Airspace opacities at left lung base, consistent with atelectasis/scarring versus pneumonia. Reviewed, dictated and finalized at location A. IMPRESSION: 1. Stable interstitial pattern in the lungs, consistent with mild chronic lung disease versus mild pulmonary edema. 2. Airspace opacities at left lung base, consistent with atelectasis/scarring v ersus pneumonia.
--- NOTE | ~2024-05-29 | CT_ITS ---
EXAMINATION: CT brain wo con DATE: 05/29/2024 19:50 INDICATION: Fall TECHNIQUE: Computed tomography (CT) of the head was performed without intravenous contrast. The mA wa s adjusted according to patient size. Iterative reconstruction technique was employed. Exam dose: 68 1.00 mGy-cm total exam DLP. COMPARISON: 06/09/2021 CT brain FINDINGS: No intracranial mass lesion or hemorrhage or recent cerebrovascular accident. No midline sh ift or mass effect. No subdural or epidural hematoma. No fracture or bone destruction of the cranial vault. The mastoid air cells and paranasal sinuses are unremarkable. IMPRESSION: No skull fracture or acute intracranial finding or significant change since 06/09/2021 Reviewed, dictated and finalized at Location A. Reviewed, dictated and finalized at location A. IMPRESSION: No skull fracture or acute intracranial finding or significant donta nge since 06/09/2021
--- NOTE | ~2024-05-29 | US_ITS ---
EXAMINATION: US abdomen limited DATE: 05/30/2024 11:04 INDICATION: Increased liver function tests TECHNIQUE: Multiple grayscale and Doppler ultrasound images of the abdomen were obtained. COMPARISON: CT dated 10/13/2023 FINDINGS: The pancreatic head and body are normal in appearance. The pancreatic tail is not visualized. The vi sualized proximal to mid inferior vena cava is normal. Visualized proximal to mid abdominal aorta is normal in caliber with small amount of nonhemodynamically significant atherosclerotic plaque. Liver h as normal echogenicity and contour, with a smooth surface. No liver lesion identified. No intrahepati c biliary duct dilation suspected. Portal venous flow was seen in the hepatopetal, normal direction a nd has normal Doppler waveform. Gallbladder is not visualized and reportedly surgically absent. The c ommon bile duct measures 4-5 mm in diameter which is normal. Trace right pleural effusion. IMPRESSION: 1. Status post cholecystectomy. Normal liver with no intra or extrahepatic biliary ductal dilation. 2. Trace right pleural effusion. Reviewed, dictated and finalized at location B. IMPRESSION: 1. Status post cholecystectomy. Normal liver with no intra or extrahepatic bili giana ductal dilation. 2. Trace right pleural effusion.
--- NOTE | ~2024-05-29 | US_ITS ---
EXAMINATION: US carotid duplex BI DATE: 05/30/2024 11:05 INDICATION: Syncope and vertigo TECHNIQUE: Grayscale, color Doppler, and pulsed Doppler images of the cervical carotid arteries were obtained. The degree of vessel stenosis is placed in one of the following categories: normal, <50%, 5 0-69%, >=70% but less than near-occlusion, near-occlusion, or total occlusion. Note that percent sten osis relative to normal distal artery lumen diameter is indirectly measured from velocity measurement s as described by Stoney, et al. Radiology 2003; 229:340-346. COMPARISON: None. FINDINGS: RIGHT: The right common carotid artery (CCA) peak systolic velocity (PSV) is 78 cm/s. The right internal car otid artery (ICA) PSV is 94 cm/s. The right ICA end-diastolic velocity (EDV) is 22 cm/s. The right IC A/CCA PSV ratio is 1.2. Grayscale and color Doppler images yield an estimate of <50% diameter reducti on from plaque in the ICA. The external carotid artery (ECA) PSV is 108 cm/s. There is antegrade flow in the right vertebral artery. LEFT: The left CCA PSV is 58 cm/s. The left ICA PSV is 49 cm/s. The left ICA EDV is 15 cm/s. The left ICA/C CA PSV ratio is 1.0. Grayscale and color Doppler images yield an estimate of <50% diameter reduction from plaque in the ICA. The ECA PSV is 69 cm/s. There is antegrade flow in the left vertebral artery. IMPRESSION: 1. <50% stenosis from minimal plaque in the right internal carotid artery. 2. <50% stenosis from minimal plaque in the left internal carotid artery. 3. Tachycardia with suggestion of a cardiac arrhythmia. Correlate with EKG. Reviewed, dictated and finalized at location B.
--- OUTSIDE RECORDS SUMMARY | 2024-05-29 12:12 | XMS_ITS | Encounter Summary ---
Author Organization [facility] Address 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
--- OUTSIDE RECORDS SUMMARY | 2024-05-29 12:12 | XMS_ITS | Encounter Summary ---
Author Organization [facility] Address [address] [place] [address] Care Team Providers Care Software Requirements Engineer Name Role Phone Unavailable Primary Care Provider [...] on file Legal Sex Female 4:46 AM DIRECTOR OF NATIONAL SALES Gender Identity Not on file Sexual Orientation Not on file documented as of this encounter Plan of Treatment Not on file documented as of this encounter Visit Diagnoses Not on filedocumented in this encounter
--- OUTSIDE RECORDS SUMMARY | 2024-05-29 12:12 | XMS_ITS | Clinical Summary ---
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
--- OUTSIDE RECORDS SUMMARY | 2024-05-29 12:12 | XMS_ITS | Clinical Summary ---
Author Organization [facility] [place] Address [address] [place] [address] Care Team Providers Care Civil Engineering Professor Name Role Phone Evangelista Carlson MD Primary Care Provide r Berny Vazquez MD Unavailable [phone] Allergies Active Allergy Reactions Criticality Noted Date Comments Propoxyphene Swelling Medium Medications clonazePAM (KlonoPIN) 0.5 mg tablet Take 1 tablet (0.5 mg total) by mouth daily 1 Active lansoprazole (PREVACID) 30 mg capsule Take by mouth daily before breakfast 1 Active cyclosporine (RESTASIS OPHT) Administer 1 drop into affected eye(s) daily as needed Active fluticasone propionate (FLONASE) 50 mcg/actuation nasal spray Administer 2 sprays into each nostril daily 1 Active calcium carbonate/vitam in D3 (CALTRATE 600 PLUS D ORAL) Take 1 tablet by mouth daily Active polycarbophil (FIBERCON) 625 mg tablet Take 2 tablets (1,250 mg total) by mouth daily Active vit C/E/Zn/coppr/lillian tein/zeaxan (PRESERVISION AREDS-2 ORAL) Take 1 tablet by mouth daily Active biotin 2,500 mcg capsule Take 2 capsules by mouth daily Active folic acid/multivit-m in/lutein (CENTRUM SILVER ORAL) Take 1 tablet by mouth daily Active cholecalciferol , vitamin D3, (VITAMIN D3 ORAL) Take 2,000 Units by mouth daily Active traZODone (DESYREL) 50 mg tablet 2 Active trimethoprim (TRIMPEX) 100 mg tablet 2 Active potassium chloride ER 20 mEq CR tablet 3 Active furosemide (LASIX) 40 mg tablet 3 Active Breo Ellipta 100-25 mcg/dose diskus inhaler 3 Active buPROPion SR (WELLBUTRIN SR) 150 mg 12 hr tablet 3 Active estradioL (ESTRACE) 0.01 % (0.1 mg/gram) vaginal cream INSERT 1 GRAM VAGINALLY 2 NIGHTS PER WEEK 4 Active methenamine (HIPREX) 1 gram tablet Take 1 tablet (1,000 mg total) by mouth 2 (two) times a day 4 Active losartan (COZAAR) 25 mg tablet 4 Active gabapentin (NEURONTIN) 300 mg capsule TAKE 2 CAPSULES BY MOUTH EVERY EVENING AND AT BEDTIME 360 capsule 3 5 Active Active Problems Problem Noted Date Diagnosed Date [...] parkinsonism. Assessment & Plan (03/31/2022 11:14 AM GLUING CREW LEADER): She had stage 3 parkinsonism characterized by [...] depression. Assessment & Plan (01/14/2021 12:22 PM GLUING CREW LEADER): She had stage 3 parkinsonism characterized by [...] reevaluate her in 6 months with our Seed Specialist and repeat a video at that time. [...] on file Legal Sex Female 1:49 AM GLUING CREW LEADER Gender Identity Female 07/15/2021 8:28 PM CDT [...] or Tdap) 01/06/2027 01/06/2017 Insurance MEDICARE MEDICARE Member Subscriber Plan / Payer ( fective 2003-Present) Name:Lisa Tovar Member ID:[id number] Relation to Subscriber:Self Name:Lisa Tovar Subscriber ID:[id number] Payer ID:[id number] Group ID:Not on file Type:MEDICARE TRADITIONAL Address: [place] [phone] [facility] MEDICARE [facility] Care Teams Civil Engineering Professor Relationship Specialty Start Date End Date Evangelista Carlson MD [address] [place] [address] PCP - General Emergency Medicine 07/26/20 Berny Vazquez MD COUNTRY [facility] [address] Referring Physician Allergy and Immunology 01/11/21
--- OUTSIDE RECORDS SUMMARY | 2024-05-29 12:12 | XMS_ITS | Encounter Summary ---
Author Organization [facility] Address [address] [place] [address] Care Team Providers Care Developmental Writing Instructor Name Role Phone Unavailable Primary Care Provider [...] on file Legal Sex Female 4:46 AM ECOLOGICAL MODELER Gender Identity Not on file Sexual Orientation Not on file documented as of this encounter Plan of Treatment Not on file documented as of this encounter Visit Diagnoses Not on filedocumented in this encounter
--- OUTSIDE RECORDS SUMMARY | 2024-05-29 12:12 | XMS_ITS | Continuity of Care Document ---
Author Organization [facility] Address [address] [place] [address] Phone Care Team Providers Care Geriatric Nurse Assistant Name Role Phone Chet Murray Unavailable [...] Copied on Encounter Office/outpat ient Visit, Est [facility], [address], [place], [place], [address], [place] tel:[phone] [facility] No Information 0 Trevor Rosenberg. [address] , [address], [place], [address], [place]. tel:[phone] [facility], [address], [place], [place], [address], [place] tel:[phone] [facility] No Information 2 0 [employer] . [address], [address], [place], [place], [address], [place]. tel:[phone] Referring Provider: Chet Smith, [address], [place], [address]. tel:[phone] esquivel Provider: Chrissy Huffman, [address] [facility], [place], [address]. tel:[phone] [address] [facility] [address] [facility], [address], [place], [place], [address], tel:[phone] [facility] No Information 7-200 9 Doimiriam Rosenberg. [address] [facility] , [address], [place], [place], [facility], . tel:[phone] [facility], [address], [place], [place], [address], tel:[phone] [facility] No Information 3-200 8 Trevor Rosenberg. [facility] , [address], [place], [facility], . tel:[phone] [facility], [address] [place] [address] [address], [place], [place], [address], tel:[phone] [facility] No Information 0 8-200 7 Trevor Rosenberg. [facility] , [address], [place], [facility], . tel:[phone] Family History Family Member Type Diagnosis Age At Onset No Information Payers Payer name Insurance type Covered republican ID Authoriza tion(s) [place] [id number] [place] [id number] Social History Type Description Quantity Date Captured [...]
--- OUTSIDE RECORDS SUMMARY | 2024-05-29 12:12 | XMS_ITS | Encounter Summary ---
Author Organization [facility] Address 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
--- OUTSIDE RECORDS SUMMARY | 2024-05-29 12:12 | XMS_ITS | Clinical Summary ---
Author Organization [facility] Address [address] [place] [address] Care Team Providers Care Program Director Scouting Name Role Phone Unavailable Primary Care Provider [...]
--- OUTSIDE RECORDS SUMMARY | 2024-05-29 12:12 | XMS_ITS | Referral Summary ---
Author Organization [facility] [place] Address [address] [place] [address] Care Team Providers Care Outsoles Channel Opener Name Role Phone Evangelista Carlson MD Primary Care Provide r Berny Vazquez MD Unavailable [phone] Allergies Active Allergy Reactions Criticality Noted Date [...] parkinsonism. Assessment & Plan (03/31/2022 11:14 AM ORCHID HAND): She had stage 3 parkinsonism characterized by [...] depression. Assessment & Plan (01/14/2021 12:22 PM ORCHID HAND): She had stage 3 parkinsonism characterized by [...] reevaluate her in 6 months with our Director Of Academic and repeat a video at that time. [...] on file Legal Sex Female 1:49 AM ORCHID HAND Gender Identity Female 07/15/2021 8:28 PM CDT [...] Treatment Not on file Insurance MEDICARE MEDICARE [facility] [place] [id number] MEDICARE [facility] Care Teams Outsoles Channel Opener Relationship Specialty Start Date End Date Evangelista Carlson MD [address] [place] [id number] PCP - General Emergency Medicine 07/26/20 Berny Vazquez MD [address] [place] [id number] Referring Physician Allergy and Immunology 01/11/21
--- NOTE | 2024-05-29 12:26 | ECG_ITS ---
Test Date: 2024-05-29 12:35:38 Measurements Intervals Harvey Rate: 120 P: 77 AR: 168 QRS: 238 QRSD: 133 T: 30 QT: 336 QTc: 475 Interpretive Statements SINUS TACHYCARDIA MARKED RIGHT AXIS DEVIATION [QRS AXIS > 100] RIGHT BUNDLE BRANCH BLOCK [120+ ms QRS DURATION, UPRIGHT V1, 40+ ms S IN I/aVL/V4/V5/V6] POSSIBLE ANTERIOR MYOCARDIAL INFARCTION , OF INDETERMINATE AGE [30 ms Q WAVE IN V3/V4, OR R < 0.2 mV IN V4] No previous ECG available for comparison Electronically Signed On 05-29-2024 13:36:41 CDT by Emir Manley M.D.
[2024-05-29 17:36] LABS: Basophils Absolute Auto 0.1 K/mm3 (0.0-0.1); Basophils Percent Auto 0.6 % (0.2-1.2); Eosinophils Absolute Auto 0.1 K/mm3 (0-0.3); Eosinophils Percent Auto 1.6 % (0-4.4); Immature Granulocyte Absolute 0.07 K/mm3 (0.00-0.031); Immature Granulocyte Percent A 0.8 % (0-0.5); Lymphocytes Absolute Auto 1.05 K/mm3 (0.9-3.2); Lymphocytes Percent Auto 11.8 % (18.3-44.2); Mean Corpuscular HGB Conc 33.3 g/dl (32-36); Mean Corpuscular Hemoglobin 32.3 pg (26-34); Mean Platelet Volume 10.5 fl (7.4-10.4); Monocytes Absolute Auto 0.8 K/mm3 (0.1-0.6); Monocytes Percent Auto 9.4 % (2.6-8.5); Neutrophils Absolute Auto 6.8 K/mm3 (1.3-6.7); Neutrophils Percent Auto 75.8 % (45.5-73.1); Platelet Count Result 190 k/mm3 (150-375); Red Blood Count 4.02 M/mm3 (4.2-5.4); Red Cell Distribution Width 14.4 % (11.5-14.5); White Blood Count 8.9 K/mm3 (4.5-10.0)
[2024-05-29 17:48] LABS: Alanine Aminotransferase 218 U/L (6-35); Albumin Level 3.7 g/dL (3.5-5.1); Alkaline Phosphatase 364 U/L (38-126); Anion Gap 9 mmol/L (4-12); Aspartate Amino Transferase 114 U/L (14-36); Bilirubin,Total 0.8 mg/dL (0.2-1.3); Blood Urea Nitrogen 35 mg/dL (7-17); Calcium 8.7 mg/dL (8.4-10.2); Carbon Dioxide 25 mmol/L (22-30); Chloride 99 mmol/L (98-107); Estimated CRCL calculation 20 ml/min; Estimated Glomerular Filt Rate 29; Glucose 106 mg/dL (65-110); Potassium 4.3 mmol/L (3.4-5.0); Sodium 133 mmol/L (137-145)
--- NOTE | 2024-05-29 18:11 | ED_ITS ---
HPI - General Adult General Chief complaint: Fall Stated complaint: glf last night Time Seen by Provider: 05/29/24 16:55 History of Present Illness HPI narrative: 84-year-old female present to the emergency department for evaluation dizziness last night. Patient states when she got up around midnight she was having some gait instability and did go down to the ground. Patient denies striking head denies any loss consciousness. Patient states that she has had decreased p.o. intake due to a sore throat issue that is been ongoing for a period of time. Patient is unable to explain the dizziness other than using the word dizziness. Related Data Home Medications ?Medication ?Instructions ?Recorded ?Confirmed ?Last Taken ?Type biotin 500 mcg capsule 500 mcg PO DAILY 04/07/23 05/11/24 3 Days Ago History ~07/12/23 calcium polycarbophil 625 mg 625 mg PO DAILY 04/07/23 05/11/24 3 Days Ago History tablet (FiberCon) ~07/12/23 cholecalciferol (vitamin D3) 125 125 mcg PO DAILY 04/07/23 05/29/24 3 Days Ago History mcg (5,000 unit) tablet (Vitamin ~07/12/23 D3) vit C 226 mg-vit E 90 mg-copper 1 cap PO BID 04/07/23 05/29/24 3 Days Ago History 0.8 mg-zinc oxide-lutein 5 mg ~07/12/23 capsule (PreserVision Lutein) gabapentin 300 mg capsule 300 mg PO .COMPLEX 06/08/23 05/29/24 07/15/23 History [id number] 8 mg-folic 400 1 tablet PO DAILY 07/10/23 05/29/24 3 Days Ago History mcg-K 50 mcg-lutein 300 mcg tablet ~07/12/23 (Centrum Silver Women) propylene glycol 0.6 % eye drops 1 drp EACH EYE DAILY PRN 05/11/24 05/11/24 Unknown History (Systane Complete) donepezil 10 mg tablet 10 mg PO DAILY 05/29/24 05/29/24 Unknown History trimethoprim 100 mg tablet 100 mg PO DAILY 05/29/24 05/29/24 Unknown History Allergies Allergy/AdvReac Type Severity Reaction Status Date / Time propoxyphene (From Darvon) Allergy Severe Swelling Verified 05/29/24 12:12 of Lip/Tongue/Throat donepezil (From Aricept) AdvReac Intermediate Abdominal Verified 05/29/24 12:12 Pain Review of Systems 2 Review of Systems: All systems reviewed & are unremarkable except as noted in HPI and below PMFSH Past Medical History Medical History Dermatitis Irritant contact dermatitis Self-catheterizes urinary bladder Left inguinal hernia Encounter for other specified surgical aftercare Incarcerated right inguinal hernia Partial small bowel obstruction Right inguinal hernia Lipoma of colon Hx of adenomatous colonic polyps Restless legs syndrome Acute blood loss anemia Hyponatremia Pneumoperitoneum Spleen laceration Constipation Bloating Belching symptom Diverticulosis Frequent UTI Memory loss Mild persistent asthma without complication Presbycusis, bilateral Pure hypercholesterolemia Unsteady gait Vitamin D deficiency Insomnia Anxiety Hypertension Asthma GERD (gastroesophageal reflux disease) Depression Surgical History Surgical History History of colonoscopy , complicated by splenic & injury per patient H/O inguinal hernia repair Robotic laparoscopic repair incarcerated right inguinal hernia, robotic laparoscopic repair left inguinal hernia, both repairs with mesh on 07/14 History of tubal ligation History of cholecystectomy Family History Family History Father Family history of transient ischemic attacks Patient's father is Cerebrovascular accident, Onset Age: 77 Sibling Family history of chronic obstructive pulmonary disease Family history of lung cancer Patient's brother is Mother Family history of transient ischemic attacks, Onset Age: 91 Other Family history of schizophrenia Social History Social History Social History: Surrogate medical decision maker: Che Field or Steffany Bradshaw, daughters. Code status: Full code. Caffeine-none Smoking packs per day: 2 Smoking cigarettes per day: 40.0 Years smoked: 2 Smoking pack-years: 4.00 Smoking status: Former smoker Tobacco type: cigarettes Second hand tobacco smoke exposure: No Smoking end date: 03/09/87 Alcohol intake: never Substance use: never Substance use type: does not use Do You Feel Safe in your Home?: Yes Lack of Transportation: No Lack of Food: Never True Current Housing: I Have Housing Concerned About Future Housing: No Difficulty Paying Gas/Electric Bills: No Difficulty Paying for Meds: No Currently Unemployed: No Education: Master's Degree or Higher Difficulty w/ Childcare or Family Care: No Living arrangements: alone Spiritual care concerns: No Agree to blood products: Yes Exam 2 Narrative: APPEARANCE: Well appearing, no pain, no distress, well-nourished. HEAD: normocephalic, atraumatic. EYES: PERRLA/EOMI, conjunctivae clear. NOSE: Normal no drainage EARS:TMS clear with good light reflex. THROAT: Pharynx clear, no exudate. NECK: Supple. No adenopathy, no masses. RESPIRATORY: Airway patent, respirations nonlabored. Clear to auscultation bilaterally, no rales, rhonchi, wheezing. CARDIOVASCULAR: Regular rate and rhythm without murmurs rubs or gallops. ABDOMINAL: Soft, nontender, nondistended, normal bowel sounds MUSCULOSKELETAL: Moves all extremities. Strength/ROM intact, No edema, No calf tenderness. NEURO: Alert. Cranial nerves II through XII intact. Good gait. Good coordination SKIN: Warm, dry. Normal Color PSYCHIATRIC: Normal affect/mood. Course Vital Signs Vital signs: Vital Signs Temperature 98.6 F 05/29/24 12:20 Pulse Rate 122 H 05/29/24 12:20 Respiratory Rate 18 05/29/24 12:20 Blood Pressure 100/56 L 05/29/24 12:20 Pulse Oximetry 99 05/29/24 12:20 Oxygen Delivery Room Air 05/29/24 12:20 Temperature 97.8 F 05/30/24 19:52 Pulse Rate 120 H 05/30/24 21:24 Respiratory Rate 18 05/30/24 19:52 Blood Pressure 132/78 05/30/24 19:52 Pulse Oximetry 100 05/30/24 19:52 Oxygen Delivery Room Air 05/30/24 16:00 Medical Decision Making [facility] Narrative Medical decision making narrative: 84-year-old female present to the emergency department for evaluation for it dizziness and potential lightheadedness. Patient was orthostatic positive. Initial EKG was read as status tachycardia. Patient's heart rate is 80 regular and is concerning for atrial fibrillation. Patient has no prior history of AFib. Patient will be started on Cardizem bolus and infusion. Urine analysis was concerning for a urinary tract infection and patient was started on Rocephin in the emergency department. Patient is afebrile with no leukocytosis and hemoglobin of 13. No significant abnormalities on the CMP other than her creatinine which is 1.66 which is higher than her baseline. Patient was treated with a L of IV fluids for MEENU. Case was discussed with hospitalist and patient was accepted for admission. Patient family updated the results of the workup and plan for admission. Differential Diagnosis Differential Diagnosis: COVID, RSV, influenza, pneumonia, urinary tract infection sinus tachycardia, atrial fibrillation Vital Signs Vital Signs: Vital Signs Temperature 98.6 F 05/29/24 12:20 Pulse Rate 122 H 05/29/24 12:20 Respiratory Rate 18 05/29/24 12:20 Blood Pressure 100/56 L 05/29/24 12:20 Pulse Oximetry 99 05/29/24 12:20 Oxygen Delivery Room Air 05/29/24 12:20 Temperature 97.8 F 05/30/24 19:52 Pulse Rate 120 H 05/30/24 21:24 Respiratory Rate 18 05/30/24 19:52 Blood Pressure 132/78 05/30/24 19:52 Pulse Oximetry 100 05/30/24 19:52 Oxygen Delivery Room Air 05/30/24 16:00 Lab Data 05/30/24 04:23 05/30/24 04:23 Labs: Lab Results 05/29/24 05/29/24 05/29/24 Range/Units 17:29 18:57 21:42 WBC 8.9 (4.5-10.0) K/mm3 RBC 4.02 L (4.2-5.4) M/mm3 Hgb 13.0 (12.0-15.0) g/dL Hct 39.0 (37.0-47.0) % MCV 97.0 (80-100) fl MCH 32.3 (26-34) pg MCHC 33.3 (32-36) g/dl RDW 14.4 (11.5-14.5) % Plt Count 190 (150-375) k/mm3 MPV 10.5 H (7.4-10.4) fl Immature Gran % (Auto) 0.8 H (0-0.5) % Neut % (Auto) 75.8 H (45.5-73.1) % Lymph % (Auto) 11.8 L (18.3-44.2) % [place] % (Auto) 9.4 H (2.6-8.5) % Eos % (Auto) 1.6 (0-4.4) % Baso % (Auto) 0.6 (0.2-1.2) % Lymph # (Auto) 1.05 (0.9-3.2) K/mm3 [place] # (Auto) 0.8 H (0.1-0.6) K/mm3 Eos # (Auto) 0.1 (0-0.3) K/mm3 Baso # (Auto) 0.1 (0.0-0.1) K/mm3 Abs Immat Gran (auto) 0.07 H (0.00-0.031) K/mm3 Absolute Neuts (auto) 6.8 H (1.3-6.7) K/mm3 Absolute Nucleated RBC 0.000 (0.0-0.012) K/mm3 Nucleated RBC % 0.0 (0.0-0.2) % Sodium 133 L (137-145) mmol/L Potassium 4.3 (3.4-5.0) mmol/L Chloride 99 (98-107) mmol/L Carbon Dioxide 25 (22-30) mmol/L Anion Gap 9 (4-12) mmol/L BUN 35 H (7-17) mg/dL Creatinine 1.66 H (0.7-1.0) mg/dL Estim Creat Clear Calc 20 ml/min Estimated GFR 29 L (59 - ) Glucose 106 (65-110) mg/dL Lactic Acid 1.7 (0.7-2.0) mmol/L Calcium 8.7 (8.4-10.2) mg/dL Magnesium 2.8 H (1.6-2.3) mg/dL Total Bilirubin 0.8 (0.2-1.3) mg/dL Direct Bilirubin (0-0.3) mg/dL Indirect Bilirubin (0-1.1) mg/dL AST 114 H (14-36) U/L ALT 218 H (6-35) U/L Alkaline Phosphatase 364 H (38-126) U/L Troponin I 0.014 (0.000-0.034) ng/mL NT-Pro-B Natriuret Pep (19.9-100) pg/mL Total Protein 7.0 (6.3-8.2) g/dL Albumin 3.7 (3.5-5.1) g/dL TSH (Reflex) 1.620 (0.465-4.68) uIU/mL Urine Color Yellow (Yellow) Urine Appearance Turbid H (Clear) Urine pH 5.5 (5.0-9.0) Ur Specific [place] 1.018 (1.001-1.035) Urine Protein 1+ H (Negative) mg/dL Urine Glucose (UA) Negative (Negative) mg/dL Urine Ketones Trace H (Negative) mg/dL Ur Blood (Man) Non-hemolyzed trace H (Negative) Urine Nitrate Negative (Negative) Urine Bilirubin Negative (Negative) Urine Urobilinogen 0.2 (<2.0) mg/dL Leukocyte Esterase Rfl 3+ H (Negative) RYLEE/UL Urine RBC 0-2 (0-2) /hpf Urine WBC >100 H (0-3) /hpf Ur Squamous Epith Cells Moderate (Few) /hpf Urine Bacteria 4+ H /hpf Urine Casts 0-2 Hepatitis A IgM Ab Negative (Negative) Hep Bs Antigen Negative (Negative) Hep B Core IgM Ab Negative (Negative) Hepatitis C Ab Screen Negative (Negative) Influenza A (RT-PCR) Negative (Negative) Influenza B (RT-PCR) Negative (Negative) RSV (RT-PCR) Negative (Negative) SARS-CoV-2 RNA (RT-PCR) Negative (Negative) 05/30/24 Range/Units 04:23 WBC 8.4 (4.5-10.0) K/mm3 RBC 3.74 L (4.2-5.4) M/mm3 Hgb 11.9 L (12.0-15.0) g/dL Hct 37.2 (37.0-47.0) % MCV 99.5 (80-100) fl MCH 31.8 (26-34) pg MCHC 32.0 (32-36) g/dl RDW 14.4 (11.5-14.5) % Plt Count 176 (150-375) k/mm3 MPV 10.6 H (7.4-10.4) fl Immature Gran % (Auto) 0.7 H (0-0.5) % Neut % (Auto) 76.4 H (45.5-73.1) % Lymph % (Auto) 9.9 L (18.3-44.2) % [place] % (Auto) 11.3 H (2.6-8.5) % Eos % (Auto) 1.2 (0-4.4) % Baso % (Auto) 0.5 (0.2-1.2) % Lymph # (Auto) 0.83 L (0.9-3.2) K/mm3 [place] # (Auto) 0.9 H (0.1-0.6) K/mm3 Eos # (Auto) 0.1 (0-0.3) K/mm3 Baso # (Auto) 0.0 (0.0-0.1) K/mm3 Abs Immat Gran (auto) 0.06 H (0.00-0.031) K/mm3 Absolute Neuts (auto) 6.4 (1.3-6.7) K/mm3 Absolute Nucleated RBC 0.000 (0.0-0.012) K/mm3 Nucleated RBC % 0.0 (0.0-0.2) % Sodium 133 L (137-145) mmol/L Potassium 4.1 (3.4-5.0) mmol/L Chloride 102 (98-107) mmol/L Carbon Dioxide 22 (22-30) mmol/L Anion Gap 9 (4-12) mmol/L BUN 29 H (7-17) mg/dL Creatinine 1.35 H (0.7-1.0) mg/dL Estim Creat Clear Calc 23 ml/min Estimated GFR 37 L (59 - ) Glucose 101 (65-110) mg/dL Lactic Acid 1.6 (0.7-2.0) mmol/L Calcium 8.2 L (8.4-10.2) mg/dL Magnesium 2.7 H (1.6-2.3) mg/dL Total Bilirubin 0.9 (0.2-1.3) mg/dL Direct Bilirubin 0.0 (0-0.3) mg/dL Indirect Bilirubin 0.6 (0-1.1) mg/dL AST 102 H (14-36) U/L ALT 178 H (6-35) U/L Alkaline Phosphatase 373 H (38-126) U/L Troponin I 0.025 (0.000-0.034) ng/mL NT-Pro-B Natriuret Pep 78218 H (19.9-100) pg/mL Total Protein 6.0 L (6.3-8.2) g/dL Albumin 3.3 L (3.5-5.1) g/dL TSH (Reflex) (0.465-4.68) uIU/mL Urine Color (Yellow) Urine Appearance (Clear) Urine pH (5.0-9.0) Ur Specific [place] (1.001-1.035) Urine Protein (Negative) mg/dL Urine Glucose (UA) (Negative) mg/dL Urine Ketones (Negative) mg/dL Ur Blood (Man) (Negative) Urine Nitrate (Negative) Urine Bilirubin (Negative) Urine Urobilinogen (<2.0) mg/dL Leukocyte Esterase Rfl (Negative) RYLEE/UL Urine RBC (0-2) /hpf Urine WBC (0-3) /hpf Ur Squamous Epith Cells (Few) /hpf Urine Bacteria /hpf Urine Casts Hepatitis A IgM Ab (Negative) Hep Bs Antigen (Negative) Hep B Core IgM Ab (Negative) Hepatitis C Ab Screen (Negative) Influenza A (RT-PCR) (Negative) Influenza B (RT-PCR) (Negative) RSV (RT-PCR) (Negative) SARS-CoV-2 RNA (RT-PCR) (Negative) Discharge Plan Discharge Clinical Impression: A-fib, Acute UTI, Acute dehydration, MEENU (acute kidney injury) Patient Disposition: Still a Patient Condition: Serious
[2024-05-29 18:12] LABS: Influenza A QL RT-PCR Negative (Negative); Influenza B QL RT-PCR Negative (Negative); RSV RNA, RT-PCR Negative (Negative); SARS-CoV-2 RNA PCR Negative (Negative)
[2024-05-29] MEDS: LACTATED RINGERS 1,000 ML 999 ML IV CONT (18:22)
[2024-05-29] MEDS: PANTOPRAZOLE SODIUM IV 40 MG VIAL IV PUSH (18:22)
[2024-05-29] MEDS: FAMOTIDINE 20 MG/2 ML VIAL IV PUSH (18:23)
[2024-05-29] MEDS: BELLADONNA ALK/PHENOB ELIX 10 ML, MAG HYDROX/ALUMINUM HYD/SIMETH 30 ML, LIDOCAINE 2% VI... PO (18:23)
[2024-05-29 18:33] LABS: Troponin I 0.014 ng/mL (0.000-0.034)
--- OUTSIDE RECORDS SUMMARY | 2024-05-29 18:35 | XMS_ITS | Clinical Summary ---
Author Organization [facility] Address [address] [facility] Attn: Epic Prelude ADT [place] [address] Care Team Providers Care Door Liner Helper Name Role Phone Unavailable Primary Care Provider Unavailabl e Social History Tobacco Use Types Packs/Day Years Used Date Smoking Tobacco: Never Assessed Comments Unknown Sex and Gender Information Value Date Recorded Sex Assigned at Not on file Legal Sex Female 4:46 AM ACCOUNTING COORDINATOR Gender Identity Not on file Sexual Orientation [...]
--- OUTSIDE RECORDS SUMMARY | 2024-05-29 18:35 | XMS_ITS | Encounter Summary ---
Author Organization [facility] Address [address] [place] [address] Care Team Providers Care Heel Stainer Name Role Phone Unavailable Primary Care Provider [...] on file Legal Sex Female 4:46 AM COSMETICIAN APPRENTICE Gender Identity Not on file Sexual Orientation Not on file documented as of this encounter Plan of Treatment Not on file documented as of this encounter Visit Diagnoses Not on filedocumented in this encounter
--- OUTSIDE RECORDS SUMMARY | 2024-05-29 18:35 | XMS_ITS | Clinical Summary ---
Author Organization [facility] [place] Address [address] [place] [address] Care Team Providers Care Fluid Dynamicist Name Role Phone Evangelista Carlson MD Primary Care Provide r Berny Vazquez MD Unavailable [phone] Allergies Active Allergy Reactions Criticality Noted Date [...] parkinsonism. Assessment & Plan (03/31/2022 11:14 AM WASTEWATER ENGINEER): She had stage 3 parkinsonism characterized by [...] depression. Assessment & Plan (01/14/2021 12:22 PM WASTEWATER ENGINEER): She had stage 3 parkinsonism characterized by [...] reevaluate her in 6 months with our Printmaker and repeat a video at that time. [...] on file Legal Sex Female 1:49 AM WASTEWATER ENGINEER Gender Identity Female 07/15/2021 8:28 PM CDT [...] Payer ( fective 2003-Present) Name:Lisa Tovar Member ID:[id number] Relation to Subscriber:Self Name:Lisa Tovar Subscriber ID:[id number] Payer ID:[id number] Group ID:Not on file Type:MEDICARE TRADITIONAL Address: [place] [phone] [facility] MEDICARE [facility] Care Teams Fluid Dynamicist Relationship Specialty Start Date End Date Evaneglista Carlson MD [address] [place] [address] PCP - General Emergency Medicine 07/26/20 Berny Vazquez MD [place]TRY [facility] [place] [address] Referring Physician Allergy and Immunology 01/11/21
--- OUTSIDE RECORDS SUMMARY | 2024-05-29 18:35 | XMS_ITS | Encounter Summary ---
Author Organization [facility] Address [address] [place] [address] Care Team Providers Care Musical Therapist Name Role Phone Unavailable Primary Care Provider [...] on file Legal Sex Female 4:46 AM [employer] [facility] Gender Identity Not on file Sexual Orientation Not on file documented as of this encounter Plan of Treatment Not on file documented as of this encounter Visit Diagnoses Not on filedocumented in this encounter
--- OUTSIDE RECORDS SUMMARY | 2024-05-29 18:35 | XMS_ITS | Referral Summary ---
Author Organization [facility] [place] Address [address] [place] [address] Care Team Providers Care Theater Manager Name Role Phone Evangelista Carlson MD Primary Care Provide r Berny Vazquez MD Unavailable [phone] Allergies Active Allergy Reactions Criticality Noted Date [...] parkinsonism. 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 Assessment & Plan (01/14/2021 12:22 PM CHIEF NUCLEAR MEDICINE TECHNOLOGIST): She had stage 3 parkinsonism characterized by [...] reevaluate her in 6 months with our Soldering Technician and repeat a video at that time. 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
--- OUTSIDE RECORDS SUMMARY | 2024-05-29 18:35 | XMS_ITS | Continuity of Care Document ---
Author Organization [facility] Address [address] [place] [address] Phone Care Team Providers Care Quantitative Manager Name Role Phone Chet Murray Unavailable Unavailable [...] Copied on Encounter Office/outpat ient Visit, Est [facility], [address], [place], [place], [id number], [place] tel:[phone] [facility] No Information 0 Trevor Rosenberg. [address] , [address], [place], [address], [place]. tel:[phone] [facility], [address], [place], [place], [id number], [place] tel:[phone] [facility] No Information 2 0 [employer] . [address], [address], [place], [place], [address], [place]. tel:[phone] Referring Provider: Chet Smith, [address], [place], [address]. tel:[phone] esquivel Provider: Chrissy Huffman, [address] [facility], [place], [address]. tel:[phone] [facility] Eye [facility], [address], [place], [place], [address], tel:[phone] [facility] No Information 7-200 9 Doimiriam Rosenberg. [address] [facility] , [address], [place], [place], [facility], . tel:[phone] [facility], [address], [place], [place], [address], tel:[phone] [facility] No Information 3-200 8 Trevor Rosenberg. [facility] , [address], [place], [place], [facility], . tel:[phone] [facility], [address] [place] [address] [address], [place], [place], [address], tel:[phone] [facility] No Information 0 8-200 7 Trevor Rosenberg. [facility] , [address], [place], [place], [facility], . tel:[phone] Family History Family Member Type Diagnosis Age At Onset No Information Payers Payer name Insurance type Covered republican ID Authoriza tion(s) [place] [id number] [place] Commercial CI [id number] Social History Type Description Quantity Date Captured [...]
--- OUTSIDE RECORDS SUMMARY | 2024-05-29 18:35 | XMS_ITS | Encounter Summary ---
Author Organization [facility] Address 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
--- OUTSIDE RECORDS SUMMARY | 2024-05-29 18:35 | XMS_ITS | Encounter Summary ---
Author Organization [facility] Address 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
--- OUTSIDE RECORDS SUMMARY | 2024-05-29 18:35 | XMS_ITS | Clinical Summary ---
Author Organization [facility] Address [address] [place] [address] Care Team Providers Care Cotton Tier Name Role Phone Unavailable Primary Care Provider [...]
[2024-05-29 19:10] LABS: Add Urine Microscopic? YES; Appearance Urine Turbid (Clear); Bacteria Urine 4+ /hpf; Bilirubin Urine Negative (Negative); Blood Urine Non-Hemolyzed Trace (Negative); Color Urine Yellow (Yellow); Glucose Urine UA Negative (Negative); Ketones Urine Trace mg/dL (Negative); Leukocyte Esterase Ur 3+ LEU/UL (Negative); Nitrate Urine Negative (Negative); Non Pathogenic Casts 0-2; Protein Urine 1+ mg/dL (Negative); RBC Urine 0-2 /hpf (0-2); Specific Grav Ur 1.018 (1.001-1.035); Squamous Epithelial Cell Urine Moderate /hpf (Few); Urobilinogen Urine 0.2 mg/dL (<2.0); WBC Urine >100 /hpf (0-3); pH Urine 5.5 (5.0-9.0)
--- NOTE | 2024-05-29 19:30 | ECG_ITS ---
Test Date: 2024-05-29 19:36:20 Measurements Intervals Ailey Rate: 122 P: 165 PA: 212 QRS: 214 QRSD: 141 T: 59 QT: 337 QTc: 481 Interpretive Statements ECTOPIC ATRIAL TACHYCARDIA WITH FIRST DEGREE AV BLOCK WITH OCCASIONAL SUPRAVENTRICULAR PREMATURE COMPLEXES INDETERMINATE AXIS RIGHT BUNDLE BRANCH BLOCK [120+ ms QRS DURATION, UPRIGHT V1, 40+ ms S IN I/aVL/V4/V5/V6] Compared to ECG 05/29/2024 12:35:38 First degree AV block now present Indeterminate axis now present Sinus tachycardia no longer present Right-axis deviation no longer present Myocardial infarct finding no longer present Electronically Signed On 05-30-2024 16:38:39 CDT by Justin Carmichael M.D.
[2024-05-29] MEDS: dilTIAZem HCl INJ 25 MG/5 ML VIAL 10 MG IV PUSH (20:03)
--- NOTE | 2024-05-29 20:04 | P.HP_ITS ---
H&P: HPI History of Present Illness Date/Time: 05/29/24 20:04 Chief Complaint: Lightheadedness Narrative: CC of female past medical history of hypertension and asthma who presented to the ER on account of lightheadedness. Patient patient was in her usual state of health until about a day prior to presentation when she started having very poor appetite followed by lightheadedness and 1 episode of fall. Denies any loss of consciousness or head trauma, no vomiting no diarrhea no abdominal pain no chest pain shortness are breath and no dysuria. She self catheterizes for urination. Denies any focal weakness or numbness. Heart rate 122, respiratory 18, blood pressure 100/56, saturating 99% on room air. Labs notable for WBC 8.9, sodium is 133, creatinine is 1.6 his baseline is about 1.18. AST 1 for ALT 218 alkaline phosphatase 564. Urine is turbid positive for leukocyte Estrace and pyuria. Flu RSV COVID. Chest x-ray showed pulmonary vascular congestion subpleural and pulmonary interstitial edema. EKG initially showed a sinus tachycardia however repeat EKG showed ectopic atrial tachycardia. Patient was suspected of UTI and started on Rocephin prior to admission. Review of Systems Review of Systems: All other systems reviewed and negative except as noted in the history above. [facility] Past Medical History Medical History Dermatitis Irritant contact dermatitis Self-catheterizes urinary bladder Left inguinal hernia Encounter for other specified surgical aftercare Incarcerated right inguinal hernia Partial small bowel obstruction Right inguinal hernia Lipoma of colon Hx of adenomatous colonic polyps Restless legs syndrome Acute blood loss anemia Hyponatremia Pneumoperitoneum Spleen laceration Constipation Bloating Belching symptom Diverticulosis Frequent UTI Memory loss Mild persistent asthma without complication Presbycusis, bilateral Pure hypercholesterolemia Unsteady gait Vitamin D deficiency Insomnia Anxiety Hypertension Asthma GERD (gastroesophageal reflux disease) Depression Surgical History Surgical History History of colonoscopy , complicated by splenic & injury per patient H/O inguinal hernia repair Robotic laparoscopic repair incarcerated right inguinal hernia, robotic laparoscopic repair left inguinal hernia, both repairs with mesh on 07/14 History of tubal ligation History of cholecystectomy Family History Family History Father Family history of transient ischemic attacks Patient's father is Cerebrovascular accident, Onset Age: 77 Sibling Family history of chronic obstructive pulmonary disease Family history of lung cancer Patient's brother is Mother Family history of transient ischemic attacks, Onset Age: 91 Other Family history of schizophrenia Social History Social History Social History: Surrogate medical decision maker: Che Emir or Steffany Bradshaw, daughters. Code status: Full code. Caffeine-none Smoking packs per day: 1.5 Smoking cigarettes per day: 30.0 Years smoked: 5 Smoking pack-years: 7.50 Smoking status: Former smoker Tobacco type: cigarettes Second hand tobacco smoke exposure: No Smoking end date: 03/09/87 Alcohol intake: never Substance use: never Substance use type: does not use Do You Feel Safe in your Home?: Yes Lack of Transportation: No Lack of Food: Never True Current Housing: Decline to Answer Concerned About Future Housing: Decline to Answer Difficulty Paying Gas/Electric Bills: Decline to Answer Difficulty Paying for Meds: Decline to Answer Currently Unemployed: Decline to Answer Education: Decline to Answer Difficulty w/ Childcare or Family Care: Decline to Answer Living arrangements: alone Spiritual care concerns: No Agree to blood products: Yes Meds Home Medications and Allergies Home Medications ?Medication ?Instructions ?Recorded ?Confirmed ?Type biotin 500 mcg capsule 500 mcg PO DAILY 04/07/23 05/11/24 History calcium polycarbophil 625 mg 625 mg PO DAILY 04/07/23 05/11/24 History tablet (FiberCon) cholecalciferol (vitamin D3) 125 125 mcg PO DAILY 04/07/23 05/11/24 History mcg (5,000 unit) tablet (Vitamin D3) vit C 226 mg-vit E 90 mg-copper 1 cap PO BID 04/07/23 05/11/24 History 0.8 mg-zinc oxide-lutein 5 mg capsule (PreserVision Lutein) gabapentin 300 mg capsule 300 mg PO .COMPLEX 06/08/23 05/11/24 History ofiirapl-djcm-lfmi 8 mg-folic 400 1 tablet PO DAILY 07/10/23 05/11/24 History mcg-K 50 mcg-lutein 300 mcg tablet (Centrum Silver Women) furosemide 40 mg tablet See Rx Instructions .Route 08/06/23 05/11/24 Rx .COMPLEX #90 tabs losartan 25 mg tablet See Rx Instructions .Route 10/08/23 05/11/24 Rx .COMPLEX #90 tabs memantine 10 mg tablet 10 mg PO DAILY #90 tabs 02/15/24 05/11/24 Rx lansoprazole 30 mg capsule,delayed See Rx Instructions .Route 02/24/24 05/11/24 Rx release .COMPLEX #90 caps potassium chloride 20 mEq See Rx Instructions .Route 02/24/24 05/11/24 Rx tablet,extended release(part/cryst) .COMPLEX #90 tabs clonazepam 0.5 mg tablet 0.5 mg PO HS #30 tabs 03/19/24 05/11/24 Rx propylene glycol 0.6 % eye drops 1 drp EACH EYE DAILY PRN 05/11/24 05/11/24 History (Systane Complete) bupropion HCl 150 mg tablet,12 hr See Rx Instructions .Route 05/23/24 Rx sustained-release .COMPLEX #90 tabs trazodone 50 mg tablet See Rx Instructions .Route 05/23/24 Rx .COMPLEX #90 tabs Allergies Allergy/AdvReac Type Severity Reaction Status Date / Time propoxyphene (From Darvon) Allergy Severe Swelling Verified 05/29/24 12:12 of Lip/Tongue/Throat donepezil (From Aricept) AdvReac Intermediate Abdominal Verified 05/29/24 12:12 Pain Vital Signs Vital Signs - 24 hr 05/29/24 12:20 05/29/24 15:10 05/29/24 17:55 Temperature 98.6 F Pulse Rate 122 H 103 H 117 H Respiratory Rate 18 16 16 Blood Pressure 100/56 L 109/66 109/67 Pulse Oximetry 99 96 94 Oxygen Delivery Room Air 05/29/24 17:56 05/29/24 17:57 05/29/24 17:58 Temperature Pulse Rate 116 H 116 H 120 H Respiratory Rate Blood Pressure 99/55 L 105/61 83/53 L Pulse Oximetry Oxygen Delivery 05/29/24 19:36 05/29/24 19:36 Temperature Pulse Rate 121 H Respiratory Rate 18 Blood Pressure 127/95 H Pulse Oximetry 100 100 Oxygen Delivery Room Air Exam Narrative: General: alert and comfortable Eyes: EOMI, PERRLA ENNT External ears normal, Neck is supple, no masses, Respiratory systems: Clear to auscultation Cardiovascular S1, S2, normal rhythm, no murmur, rub, or gallop; no thrill or palpable murmurs on palpation. Gastrointestinal: soft, non-tender, and non-distended abdomen with no masses; BS present Skin: no rash, lesions, ulcerations, subcutaneous nodules or induration Musculoskeletal: no abnormality and no tenderness, normal ROM Neurologic: Alert and oriented x3, non focal Mental Status Exam: normal affect H&P: Results Labs Labs: Short CBC 05/29/24 Range/Units 17:29 WBC 8.9 (4.5-10.0) K/mm3 Hgb 13.0 (12.0-15.0) g/dL Hct 39.0 (37.0-47.0) % Plt Count 190 (150-375) k/mm3 BMP 05/29/24 17:29 Sodium 133 L Potassium 4.3 Chloride 99 Carbon Dioxide 25 BUN 35 H Creatinine 1.66 H Glucose 106 Calcium 8.7 Cardiac Enzymes 05/29/24 Range/Units 17:29 Troponin I 0.014 (0.000-0.034) ng/mL Liver Function 05/29/24 Range/Units 17:29 Total Bilirubin 0.8 (0.2-1.3) mg/dL AST 114 H (14-36) U/L ALT 218 H (6-35) U/L Alkaline Phosphatase 364 H (38-126) U/L Albumin 3.7 (3.5-5.1) g/dL Urine 05/29/24 Range/Units 18:57 Urine Color Yellow (Yellow) Urine Appearance Turbid H (Clear) Urine pH 5.5 (5.0-9.0) Ur Specific Elaine 1.018 (1.001-1.035) Urine Protein 1+ H (Negative) mg/dL Urine Glucose (UA) Negative (Negative) mg/dL Assessment and Plan Assessment and plan (1) MEENU (acute kidney injury): Code(s): N17.9 - Acute kidney failure, unspecified Status: Acute (2) Acute UTI: Code(s): N39.0 - Urinary tract infection, site not specified Status: Acute Plan MEENU Likely from dehydration Patient reported poor appetite from yesterday Creatinine 1.66, baseline level 0.18. Continue gentle rehydration since patient reported poor appetite from yesterday reassess in the am to consider continuing rehydration vs diuresis per Pulm edema on CXR Monitor. Possible UTI Urine and blood culture ordered UA showed it to be due urine with positive leukocyte Estrace pyuria Continue Rocephin, gentle rehydration and monitor. Patient does self intermittent catheterization Pulmonary edema rule out CHF Chest x-ray showed pulmonary edema EKG showed ectopic atrial tachycardia, initially showed a sinus tachycardia. Echo ordered Repeat CXR in the Am and ekg, reassess in the am and adjust care Near syncope and fall From dehydration vs infection vs arrhythmia vs cardiomyopathy continue above care PT/OT ordered Elevated liver enzymes ?Dehydration rule out infection AST 114, ALT 218, alkaline phosphatase 364. Asthma Continue DuoNeb treatment. Hypertension Titrate her medication clinical course. DVT prophylaxis subQ Lovenox Full code Surrogate decision maker is paz, [facility] Advance Care Plan I have confirmed that the patient's Advanced Care Plan is present, code status is documented, or surrogate decision maker is listed in patient medical record.: Yes Medication Reconciliation I have utilized all available resources to obtain, update and review the patients current medications (includes all prescriptions, OTC, herbals, cannabis, and nutritional supplements).: Yes
[2024-05-29] MEDS: dilTIAZem 100 MG/100 ML 100 MG/100 ML BAG IV CONT (20:07)
--- NOTE | 2024-05-29 20:10 | PC.NURSE ---
EDP Dr. Bradley notified abx was already given to patient prior to ordering blood cultures. EDP verbalized blood cultures were not needed at this time. this rn used closed loop communication to confirm discontinuation of blood cultures.
--- NOTE | 2024-05-29 21:10 | PC.NURSE ---
pt verbalizes that she does not need/ want breathing treatment. this rn notified hospitalist at this time who verfied that patient did not need breathing treatment. this rn notified respiratory at this time.
--- NOTE | 2024-05-29 21:23 | PC.NURSE ---
this rn updated patient home medications.
[2024-05-29 21:59] LABS: Lactic Acid Reflex 1.7 mmol/L (0.7-2.0); Magnesium 2.8 mg/dL (1.6-2.3)
[2024-05-29 22:31] LABS: Hepatitis B Surface Antigen Negative (Negative)
[2024-05-29 22:38] LABS: HAV RESULT Negative (Negative); Hepatitis B Core IgM Result Negative (Negative)
[2024-05-29] MEDS: SODIUM CHLORIDE 0.9% IV 1,000 ML 75 ML IV CONT (22:43)
[2024-05-29 22:49] LABS: Hepatitis C Virus Antibody Negative (Negative)
[2024-05-29] MEDS: ALBUTEROL SULFATE (*SP) AEROSOL 1 PUFF 2 PUFF INHALATION (23:57)
[2024-05-30] VITALS (19 sets, daily range): BP systolic 103–132; BP diastolic 53–78; PULSE 71–120; RESP 16–20; TEMP 36.6–37.1; O2SAT 95–100; BMI 28.6
--- NOTE | 2024-05-30 | ECHO_ITS ---
Patient Info Name: Lisa Tovar Age: 84 years : 1940 Gender: Female Ht: 65 in Wt: 143 lbs BSA: 1.73 m2 HR: 93 bpm BP: 103 / 73 mmHg Technical Quality: Fair Exam Date: 05/30/2024 2:08 PM Exam Location: Echo Lab Patient Status: Inpatient Admit Date: 05/30/2024 Staff Ordering Physician: Taylor Schwarz MD Flower Grader: Jordyn De Leon RDCS Attending Provider: Taylor Schwarz MD Exam Type: CA echo dop color flow w con Study Info Indications - chf Complete two-dimensional, color flow and Doppler transthoracic echocardiogram is performed with contrast to opacify the left ventricle and to improve the deliniation of the left ventricle endocardial borders. Contrast/Agitated Saline Contrast/Ag. Saline: Definity Amount: 2.00 ml Administered By: Jordyn D eLeon RDCS Existing IV Access: Yes IV Access Condition: patent with no signs of infiltration Summary 1. Definity contrast administered improved wall motion interpretation. 2. Left ventricular chamber dimension is normal. 3. Left ventricular systolic function is normal, estimated at 55-60%. 4. The left ventricular diastolic function is abnormal. 5. E/e' 14 is mildly elevated. 6. There is mild aortic valve sclerosis. 7. There is mild mitral valve regurgitation. 8. No pulmonary hypertension, estimated pulmonary arterial systolic pressure is 20 mmHg. Left Ventricle Definity contrast administered improved wall motion interpretation. E/e' 14 is mildly elevated. Left ventricular chamber dimension is normal. Left ventricular systolic function is normal, estimated at 55-60%. The left ventricular diastolic function is abnormal. Right Ventricle Right ventricular chamber dimension is normal. Right ventricular systolic function is normal. Left Atria Left atrial chamber dimension is normal. Right Atria Right atrial chamber dimension is normal. Aortic Valve The aortic valve is not well visualized. There is mild aortic valve sclerosis. There is no aortic valve stenosis. There is no aortic valve regurgitation. Pulmonic Valve There is no pulmonic regurgitation. Mitral Valve There is no mitral valve stenosis. There is mild mitral valve regurgitation. Tricuspid Valve There is no tricuspid valve regurgitation. No pulmonary hypertension, estimated pulmonary arterial systolic pressure is 20 mmHg. Pericardium/Pleural There is no pericardial effusion. Inferior Vena Cava Normal inferior vena cava with >50% collapse upon inspiration consistent with normal right atrial pressure, 5 mmHg. Aorta The aortic root size at the sinus of Valsalva is normal. Left Ventricular Outflow Tract Name Value Normal LVOT 2D LVOT Diameter 1.94 cm LVOT Doppler LVOT Peak Gradient 2 mmHg LVOT Mean Gradient 1 mmHg LVOT VTI 9.84 cm LVOT VTI/AV VTI Ratio 0.53 LVOT Stroke Volume 29.06 ml LVOT CO 2.45 l/min LVOT CI 1.41 L/min/m2 Pulmonic Valve Name Value Normal PV Doppler PV Peak Gradient 1 mmHg Mitral Valve Name Value Normal MV Doppler MV Decel [place] 535.41 cm/s2 MV PHT 0 s MV Area (PHT) 5.14 cm2 4.00-5.00 MV Regurgitation Doppler MR Peak Gradient 85 mmHg MV Diastolic Function MV E Peak Velocity 79.05 cm/s MV A Peak Velocity 70.55 cm/s MV E/A 1.12 MV Decel Time 0 s MV Annular TDI MV E/e' (Septal) 14.56 <=8.00 MV E/e' (Lateral) 13.50 <=8.00 MV E/e' (Average) 14.03 Tricuspid Valve Name Value Normal TV Regurgitation Doppler TR Peak Velocity 190.99 cm/s TR Peak Gradient 15 mmHg Estimated PAP/RSVP RA Pressure 5 mmHg <=5 PA Systolic Pressure 20 mmHg <36 RV Systolic Pressure 20 mmHg <36 Aortic Valve Name Value Normal AV Doppler AV Peak Velocity 108.14 cm/s AV Peak Gradient 5 mmHg AV Mean Gradient 3 mmHg AV VTI 18.58 cm AV Area (Cont Eq VTI) 1.56 cm2 >=3.00 AV Area (Cont Eq Magdiel) 1.70 cm2 AV Regurgitation 2D LVOT Area 2.95 cm2 Ventricles Name Value Normal LV Dimensions 2D/MM IVS Diastolic Thickness (2D) 0.62 cm 0.60-1.00 LVID Diastole (2D) 3.45 cm 3.80-5.20 LVIW Diastolic Thickness (2D) 0.76 cm 0.60-0.90 LVID Systole (2D) 2.65 cm 2.20-3.50 LVOT Diameter 1.94 cm LV Mass (2D Cubed) 60.18 g 67.00-162.00 LV Mass Index (2D Cubed) 0.00 g/cm2 0.00-0.01 Relative Wall Thickness (2D) 0.44 LV Fractional Shortening/Ejection Fraction 2D/MM LV Fractional Shortening (2D) 23 % 27-45 LV EF (2D Teicholz) 47 % 54-74 LV Diastolic Volume (4C MOD) 47.46 ml LV EF (4C MOD) 72 % LV Diastolic Volume (2C MOD) 31.94 ml LV EF (2C MOD) 76 % LV Diastolic Volume (BP MOD) 43.02 ml 46.00-106.00 LV Diastolic Volume Index (BP MOD) 0.02 l/m2 0.03-0.06 LV Systolic Volume (BP MOD) 10.31 ml 14.00-42.00 LV Systolic Volume Index (BP MOD) 0.01 l/m2 0.01-0.02 LV EF (BP MOD) 76 % 54-74 LV Diastolic Length (4C) 6.14 cm LV Systolic Length (4C) 4.58 cm LV Stroke Volume (4C MOD) 33.97 ml Atria Name Value Normal LA Dimensions LA Volume (4C A-L) 30.41 ml LA Volume (BP A-L) 34.65 ml RA Dimensions RA Area (4C) 12.99 cm2 <=18.00 Report Signatures
--- NOTE | 2024-05-30 00:39 | ADMGEN ---
This patient, Lisa Tovar, was admitted to IMU Room 207-01. Patient/family oriented to hospital policies and general routines including ID bracelet, bed and alarms, visiting hours, pain management, procedures, bathroom and other care routines, personal items, smoking policy, room service/diet, and visiting hours. Information on how to activate the Rapid Response Team has been discussed. Patient/Family are encouraged to report perceived risks to care and to ask questions if they do not understand what they are told or what they should do.
--- NOTE | 2024-05-30 00:48 | PC.NURSE ---
Patient unsure of home medications. States daughter took her phone home with the information on her medication and will bring it to the hospital in the morning
[2024-05-30 04:33] LABS: Basophils Percent Auto 0.5 % (0.2-1.2); Eosinophils Absolute Auto 0.1 K/mm3 (0-0.3); Eosinophils Percent Auto 1.2 % (0-4.4); Hematocrit 37.2 % (37.0-47.0); Hemoglobin 11.9 g/dL (12.0-15.0); Immature Granulocyte Absolute 0.06 K/mm3 (0.00-0.031); Immature Granulocyte Percent A 0.7 % (0-0.5); Lymphocytes Absolute Auto 0.83 K/mm3 (0.9-3.2); Lymphocytes Percent Auto 9.9 % (18.3-44.2); Mean Corpuscular Hemoglobin 31.8 pg (26-34); Mean Corpuscular Volume 99.5 fl (80-100); Mean Platelet Volume 10.6 fl (7.4-10.4); Monocytes Absolute Auto 0.9 K/mm3 (0.1-0.6); Monocytes Percent Auto 11.3 % (2.6-8.5); Neutrophils Absolute Auto 6.4 K/mm3 (1.3-6.7); Neutrophils Percent Auto 76.4 % (45.5-73.1); Platelet Count Result 176 k/mm3 (150-375); Red Blood Count 3.74 M/mm3 (4.2-5.4); Red Cell Distribution Width 14.4 % (11.5-14.5); White Blood Count 8.4 K/mm3 (4.5-10.0)
[2024-05-30 04:44] LABS: Lactic Acid Reflex 1.6 mmol/L (0.7-2.0)
[2024-05-30 04:50] LABS: Alanine Aminotransferase 178 U/L (6-35); Albumin Level 3.3 g/dL (3.5-5.1); Alkaline Phosphatase 373 U/L (38-126); Anion Gap 9 mmol/L (4-12); Aspartate Amino Transferase 102 U/L (14-36); Bilirubin,Total 0.9 mg/dL (0.2-1.3); Blood Urea Nitrogen 29 mg/dL (7-17); Calcium 8.2 mg/dL (8.4-10.2); Carbon Dioxide 22 mmol/L (22-30); Chloride 102 mmol/L (98-107); Estimated CRCL calculation 23 ml/min; Estimated Glomerular Filt Rate 37; Glucose 101 mg/dL (65-110); Magnesium 2.7 mg/dL (1.6-2.3); Potassium 4.1 mmol/L (3.4-5.0); Sodium 133 mmol/L (137-145)
[2024-05-30 04:53] LABS: Troponin I 0.025 ng/mL (0.000-0.034)
--- NOTE | 2024-05-30 06:00 | ECG_ITS ---
Test Date: 2024-05-30 06:10:13 Measurements Intervals [place] Rate: 111 P: 75 CA: 185 QRS: 219 QRSD: 131 T: 23 QT: 345 QTc: 469 Interpretive Statements SINUS TACHYCARDIA WITH FREQUENT SUPRAVENTRICULAR PREMATURE COMPLEXES RIGHT BUNDLE BRANCH BLOCK [120+ ms QRS DURATION, UPRIGHT V1, 40+ ms S IN I/aVL/V4/V5/V6] Compared to ECG 05/29/2024 19:36:20 NO SIGNIFICANT CHANGES Electronically Signed On 05-31-2024 15:27:54 CDT by Emir Manley M.D.
[2024-05-30] MEDS: SODIUM CHLORIDE 0.9% IV 1,000 ML 75 ML IV CONT (06:33)
[2024-05-30 08:18] LABS: Bilirubin Indirect 0.6 mg/dL (0-1.1)
[2024-05-30] MEDS: ALBUTEROL SULFATE (*SP) AEROSOL 1 PUFF 2 PUFF INHALATION ×2 (08:24→21:50)
[2024-05-30 08:29] LABS: NT Pro B Type Natriuretic Pept 24900 pg/mL (19.9-100)
[2024-05-30] MEDS: METOPROLOL TARTRATE 12.5 MG TABLET PO ×2 (10:10→21:24)
[2024-05-30] MEDS: PERFLUTREN LIPID MICROSPHERES 1.5 ML VIAL DILUTED TO 10 ML TOTAL VOLUME IV PUSH (14:33)
--- NOTE | 2024-05-30 14:38 | PCOTNOTE ---
Attempted to see pt for occupational therapy. Pt. currently receiving ECHO.
--- NOTE | 2024-05-30 16:16 | IVDEFINITY ---
Prior to administration of IV Definity the patient was educated on the risks and benefits of the imaging enhancing agent including potential adverse side effects. The patient verbalized understanding. Allergies were verified. No exclusion criteria were identified and at least one of the following inclusion criteria were met: 1) physician request, 2) patient technically difficult to image (per the [place] [employer] guidelines of two or more segments not discernable within the apical view), or 3) questionable left ventricular function. ?
--- NOTE | 2024-05-30 17:02 | PM.IMPN ---
Progress Note: A&P Assessment and Plan (1) MEENU (acute kidney injury): Code(s): N17.9 - Acute kidney failure, unspecified Status: Acute (2) Acute UTI: Code(s): N39.0 - Urinary tract infection, site not specified Status: Acute Plan MEENU Likely from dehydration Patient reported poor appetite from yesterday Creatinine 1.66, baseline level 0.18. Continue gentle rehydration since patient reported poor appetite from yesterday reassess in the am to consider continuing rehydration vs diuresis per Pulm edema on CXR Monitor. Possible UTI Urine and blood culture ordered UA showed it to be due urine with positive leukocyte Estrace pyuria Continue Rocephin, gentle rehydration and monitor. Patient does self intermittent catheterization Pulmonary edema rule out CHF Chest x-ray showed pulmonary edema EKG showed ectopic atrial tachycardia, initially showed a sinus tachycardia. Echo ordered Repeat CXR in the Am and ekg, reassess in the am and adjust care Near syncope and fall From dehydration vs infection vs arrhythmia vs cardiomyopathy continue above care PT/OT ordered Elevated liver enzymes ?Dehydration rule out infection AST 114, ALT 218, alkaline phosphatase 364. Asthma Continue DuoNeb treatment. Hypertension Titrate her medication clinical course. DVT prophylaxis subQ Lovenox Full code Surrogate decision maker is daughter, Che Field Subjective Date/time seen: 05/30/24 17:02 Interval history: Lives at home by herself. Has remote hx of CVA. Recently had balance issue. Patient is getting Lasix from PCP. Possibly contributed to the dehydration and the MEENU. Echocardiogram shows of 50-55%. Review of Systems Review of Systems: All other systems reviewed and negative except as noted in the history above. Exam Narrative: General: alert and comfortable Eyes: EOMI, PERRLA ENNT External ears normal, Neck is supple, no masses, Respiratory systems: Clear to auscultation Cardiovascular S1, S2, normal rhythm, no murmur, rub, or gallop; no thrill or palpable murmurs on palpation. Gastrointestinal: soft, non-tender, and non-distended abdomen with no masses; BS present Skin: no rash, lesions, ulcerations, subcutaneous nodules or induration Musculoskeletal: no abnormality and no tenderness, normal ROM Neurologic: Alert and oriented x3, non focal Mental Status Exam: normal affect Objective Data Vital Signs Vital Signs: Vital Signs - 24 hr 05/29/24 17:55 05/29/24 17:56 05/29/24 17:57 Temperature Pulse Rate 117 H 116 H 116 H Respiratory Rate 16 Blood Pressure 109/67 99/55 L 105/61 Pulse Oximetry 94 Oxygen Delivery 05/29/24 17:58 05/29/24 19:36 05/29/24 19:36 Temperature Pulse Rate 120 H 121 H Respiratory Rate 18 Blood Pressure 83/53 L 127/95 H Pulse Oximetry 100 100 Oxygen Delivery Room Air 05/29/24 19:37 05/29/24 20:05 05/29/24 20:07 Temperature Pulse Rate 125 H 115 H 103 H Respiratory Rate 24 H 14 Blood Pressure 127/95 H 115/81 100/57 L Pulse Oximetry 98 100 Oxygen Delivery 05/29/24 20:07 05/29/24 20:16 05/29/24 20:31 Temperature Pulse Rate 110 H 114 H 116 H Respiratory Rate 22 H 16 19 Blood Pressure 100/57 L 112/74 115/85 Pulse Oximetry 99 98 97 Oxygen Delivery 05/29/24 20:46 05/29/24 20:47 05/29/24 20:55 Temperature Pulse Rate 99 114 H 119 H Respiratory Rate 21 H 21 H Blood Pressure 123/91 H 124/70 123/91 H Pulse Oximetry 97 100 Oxygen Delivery 05/29/24 23:30 05/29/24 23:57 05/30/24 00:25 Temperature Pulse Rate 9 L 103 H 108 H Respiratory Rate 16 20 16 Blood Pressure 124/70 Pulse Oximetry 100 100 Oxygen Delivery 05/30/24 00:34 05/30/24 00:34 05/30/24 01:00 Temperature 98.1 F Pulse Rate 92 92 Respiratory Rate 16 Blood Pressure 109/62 109/62 Pulse Oximetry 99 Oxygen Delivery Room Air 05/30/24 01:52 05/30/24 02:00 05/30/24 03:55 Temperature Pulse Rate 102 H 71 Respiratory Rate Blood Pressure Pulse Oximetry Oxygen Delivery Room Air 05/30/24 03:58 05/30/24 04:00 05/30/24 05:57 Temperature 98.8 F Pulse Rate 112 H 113 H 93 Respiratory Rate 20 Blood Pressure 103/73 Pulse Oximetry 97 Oxygen Delivery 05/30/24 08:00 05/30/24 08:00 05/30/24 08:00 Temperature 98.6 F Pulse Rate 105 H 108 H Respiratory Rate 20 Blood Pressure 111/53 L Pulse Oximetry 96 Oxygen Delivery Room Air 05/30/24 08:26 05/30/24 08:26 05/30/24 10:00 Temperature Pulse Rate 117 H 115 H Respiratory Rate 20 Blood Pressure Pulse Oximetry 95 Oxygen Delivery Room Air 05/30/24 12:00 05/30/24 12:00 05/30/24 12:00 Temperature 98 F Pulse Rate 107 H 107 H Respiratory Rate 20 Blood Pressure 109/57 L Pulse Oximetry 99 Oxygen Delivery Room Air 05/30/24 13:54 05/30/24 14:45 05/30/24 16:00 Temperature 98.1 F Pulse Rate 103 H Respiratory Rate 18 Blood Pressure 105/61 Pulse Oximetry 98 Oxygen Delivery Room Air Room Air Intake/Output Intake/Output: Intake & Output 05/27/24 05/28/24 05/29/24 05/30/24 23:59 23:59 23:59 23:59 Intake Total 1054 1377.0 Output Total 100 Balance 1054 1277.0 Meds/Results Medications: Active Medications Generic Name Dose Route Start Last Admin Trade Name Freq PRN Reason Stop Dose Admin Albuterol 2 puff 05/29/24 21:21 05/30/24 08:24 Albuterol Sulfate (*Sp) Aerosol 1 Puff INHALATION 2 puff Q6HRT PRN Administration Shortness Of Breath Or Wheezing Ceftriaxone Sodium 1 gm in 50 mls @ 100 mls/hr 05/30/24 20:00 Rocephin 1 Gm/Ns 50 Ml IVPB Q24H RASHIM Sodium Chloride 1,000 mls @ 75 mls/hr 05/29/24 20:05 05/30/24 06:33 Normal Saline Iv IV CONT 75 mls/hr .[id number] RASHMI Administration Metoprolol Tartrate 12.5 mg 05/30/24 09:00 05/30/24 10:10 Metoprolol Tartrate 12.5 Mg Tablet PO 12.5 mg Q12HR RASHMI Administration Radiology Results: ITS Impressions Head CT 05/29/24 20:04 IMPRESSION: No skull fracture or acute intracranial finding or significant change since 06/09/2021 Chest X-Ray 05/30/24 06:23 IMPRESSION: 1. Interstitial opacities in the lower lung zones, consistent with atelectasis/scarring versus mild pulmonary edema. Chest CT 05/30/24 06:28 IMPRESSION: 1. Diffuse lung disease similar to prior exams, likely a combination of granulomatous disease and mild chronic lung disease. Mild pulmonary edema or mild acute pneumonia cannot be excluded. Carotid Doppler Study 05/30/24 11:35 IMPRESSION: 1. <50% stenosis from minimal plaque in the right internal carotid artery. 2. <50% stenosis from minimal plaque in the left internal carotid artery. 3. Tachycardia with suggestion of a cardiac arrhythmia. Correlate with EKG. Abdomen Ultrasound 05/30/24 11:37 IMPRESSION: 1. Status post cholecystectomy. Normal liver with no intra or extrahepatic biliary ductal dilation. 2. Trace right pleural effusion. Labs Labs: Laboratory Results - last 24 hr 05/29/24 05/29/24 05/29/24 17:29 18:57 21:42 WBC 8.9 RBC 4.02 L Hgb 13.0 Hct 39.0 MCV 97.0 MCH 32.3 MCHC 33.3 RDW 14.4 Plt Count 190 MPV 10.5 H Immature Gran % (Auto) 0.8 H Neut % (Auto) 75.8 H Lymph % (Auto) 11.8 L [place] % (Auto) 9.4 H Eos % (Auto) 1.6 Baso % (Auto) 0.6 Lymph # (Auto) 1.05 [place] # (Auto) 0.8 H Eos # (Auto) 0.1 Baso # (Auto) 0.1 Abs Immat Gran (auto) 0.07 H Absolute Neuts (auto) 6.8 H Absolute Nucleated RBC 0.000 Nucleated RBC % 0.0 Sodium 133 L Potassium 4.3 Chloride 99 Carbon Dioxide 25 Anion Gap 9 BUN 35 H Creatinine 1.66 H Estim Creat Clear Calc 20 Estimated GFR 29 L Glucose 106 Lactic Acid 1.7 Calcium 8.7 Magnesium 2.8 H Total Bilirubin 0.8 Direct Bilirubin Indirect Bilirubin AST 114 H ALT 218 H Alkaline Phosphatase 364 H Troponin I 0.014 NT-Pro-B Natriuret Pep Total Protein 7.0 Albumin 3.7 TSH (Reflex) 1.620 Urine Color Yellow Urine Appearance Turbid H Urine pH 5.5 Ur Specific [place] 1.018 Urine Protein 1+ H Urine Glucose (UA) Negative Urine Ketones Trace H Ur Blood (Man) Non-hemolyzed trace H Urine Nitrate Negative Urine Bilirubin Negative Urine Urobilinogen 0.2 Leukocyte Esterase Rfl 3+ H Urine RBC 0-2 Urine WBC >100 H Ur Squamous Epith Cells Moderate Urine Bacteria 4+ H Urine Casts 0-2 Hepatitis A IgM Ab Negative Hep Bs Antigen Negative Hep B Core IgM Ab Negative Hepatitis C Ab Screen Negative Influenza A (RT-PCR) Negative Influenza B (RT-PCR) Negative RSV (RT-PCR) Negative SARS-CoV-2 RNA (RT-PCR) Negative 05/30/24 04:23 WBC 8.4 RBC 3.74 L Hgb 11.9 L Hct 37.2 MCV 99.5 MCH 31.8 MCHC 32.0 RDW 14.4 Plt Count 176 MPV 10.6 H Immature Gran % (Auto) 0.7 H Neut % (Auto) 76.4 H Lymph % (Auto) 9.9 L [place] % (Auto) 11.3 H Eos % (Auto) 1.2 Baso % (Auto) 0.5 Lymph # (Auto) 0.83 L [place] # (Auto) 0.9 H Eos # (Auto) 0.1 Baso # (Auto) 0.0 Abs Immat Gran (auto) 0.06 H Absolute Neuts (auto) 6.4 Absolute Nucleated RBC 0.000 Nucleated RBC % 0.0 Sodium 133 L Potassium 4.1 Chloride 102 Carbon Dioxide 22 Anion Gap 9 BUN 29 H Creatinine 1.35 H Estim Creat Clear Calc 23 Estimated GFR 37 L Glucose 101 Lactic Acid 1.6 Calcium 8.2 L Magnesium 2.7 H Total Bilirubin 0.9 Direct Bilirubin 0.0 Indirect Bilirubin 0.6 AST 102 H ALT 178 H Alkaline Phosphatase 373 H Troponin I 0.025 NT-Pro-B Natriuret [place] 48007 H Total Protein 6.0 L Albumin 3.3 L TSH (Reflex) Urine Color Urine Appearance Urine pH Ur Specific [place] Urine Protein Urine Glucose (UA) Urine Ketones Ur Blood (Man) Urine Nitrate Urine Bilirubin Urine Urobilinogen Leukocyte Esterase Rfl Urine RBC Urine WBC Ur Squamous Epith Cells Urine Bacteria Urine Casts Hepatitis A IgM Ab Hep Bs Antigen Hep B Core IgM Ab Hepatitis C Ab Screen Influenza A (RT-PCR) Influenza B (RT-PCR) RSV (RT-PCR) SARS-CoV-2 RNA (RT-PCR) Hospitalist MIPS Advance Care Plan I have confirmed that the patient's Advanced Care Plan is present, code status is documented, or surrogate decision maker is listed in patient medical record.: Yes Medication Reconciliation I have utilized all available resources to obtain, update and review the patients current medications (includes all prescriptions, OTC, herbals, cannabis, and nutritional supplements).: Yes
[2024-05-30] MEDS: OPTI-GEN TAB 1 TABLET PO (19:40)
[2024-05-30] MEDS: clonazePAM (*CRX) 0.5 MG TABLET PO (21:23)
[2024-05-30] MEDS: traZODone HCL 50 MG TABLET PO (21:24)
[2024-05-31] VITALS (24 sets, daily range): BP systolic 105–141; BP diastolic 58–92; PULSE 95–121; RESP 18–22; TEMP 36.3–36.9; O2SAT 94–98
[2024-05-31 05:01] LABS: Hematocrit 38.1 % (37.0-47.0); Hemoglobin 12.3 g/dL (12.0-15.0); Mean Corpuscular HGB Conc 32.3 g/dl (32-36); Mean Corpuscular Hemoglobin 31.9 pg (26-34); Platelet Count Result 213 k/mm3 (150-375); Red Blood Count 3.85 M/mm3 (4.2-5.4); Red Cell Distribution Width 14.6 % (11.5-14.5); White Blood Count 11.3 K/mm3 (4.5-10.0)
[2024-05-31] MEDS: ALBUTEROL SULFATE (*SP) AEROSOL 1 PUFF 2 PUFF INHALATION (05:01)
[2024-05-31 05:14] LABS: Alanine Aminotransferase 181 U/L (6-35); Albumin Level 3.5 g/dL (3.5-5.1); Alkaline Phosphatase 456 U/L (38-126); Anion Gap 13 mmol/L (4-12); Aspartate Amino Transferase 103 U/L (14-36); Bilirubin,Total 0.9 mg/dL (0.2-1.3); Blood Urea Nitrogen 22 mg/dL (7-17); Calcium 8.5 mg/dL (8.4-10.2); Carbon Dioxide 19 mmol/L (22-30); Chloride 106 mmol/L (98-107); Estimated CRCL calculation 31 ml/min; Estimated Glomerular Filt Rate 53; Glucose 120 mg/dL (65-110); Potassium 4.1 mmol/L (3.4-5.0); Sodium 138 mmol/L (137-145)
--- NOTE | 2024-05-31 08:16 | PM.IMPN ---
Progress Note: A&P Assessment and Plan (1) MEENU (acute kidney injury): Code(s): N17.9 - Acute kidney failure, unspecified Status: Acute (2) Acute UTI: Code(s): N39.0 - Urinary tract infection, site not specified Status: Acute Plan MEENU Likely from dehydration Patient reported poor appetite from yesterday Creatinine 1.66, baseline level 0.18. Continue gentle rehydration since patient reported poor appetite from yesterday reassess in the am to consider continuing rehydration vs diuresis per Pulm edema on CXR Monitor. Sinus tachycardia Metoprolol 12.5 p.o. b.i.d. Rule out PE Possibly due to dehydration Reviewed EKG and echocardiogram Possible UTI Urine and blood culture ordered UA showed it to be due urine with positive leukocyte Estrace pyuria Continue Rocephin, gentle rehydration and monitor. Patient does self intermittent catheterization Pulmonary edema rule out CHF Chest x-ray showed pulmonary edema EKG showed ectopic atrial tachycardia, initially showed a sinus tachycardia. Echo ordered shows no significant finding Repeat CXR in the Am and ekg, reassess in the am and adjust care Near syncope and fall From dehydration vs infection vs arrhythmia vs cardiomyopathy continue above care PT/OT ordered Elevated liver enzymes ?Dehydration rule out infection AST 114, ALT 218, alkaline phosphatase 364. Asthma Continue DuoNeb treatment. Hypertension Titrate her medication clinical course. DVT prophylaxis subQ Lovenox Full code Surrogate decision maker is Che mullen Subjective Date/time seen: 05/31/24 08:16 Interval history: Patient heart rate is elevated. Will rule out PE. Patient ejection fraction 55-60%. Upon discharge will hold the Lasix and will be advised to take it if needed. Her rising creatinine has been resolved with fluids. Review of Systems Review of Systems: All other systems reviewed and negative except as noted in the history above. Exam Narrative: General: alert and comfortable Eyes: EOMI, PERRLA ENNT External ears normal, Neck is supple, no masses, Respiratory systems: Clear to auscultation Cardiovascular S1, S2, normal rhythm, no murmur, rub, or gallop; no thrill or palpable murmurs on palpation. Gastrointestinal: soft, non-tender, and non-distended abdomen with no masses; BS present Skin: no rash, lesions, ulcerations, subcutaneous nodules or induration Musculoskeletal: no abnormality and no tenderness, normal ROM Neurologic: Alert and oriented x3, non focal Mental Status Exam: normal affect Objective Data Vital Signs Vital Signs: Vital Signs - 24 hr 05/30/24 08:26 05/30/24 08:26 05/30/24 10:00 Temperature Pulse Rate 117 H 115 H Respiratory Rate 20 Blood Pressure Pulse Oximetry 95 Oxygen Delivery Room Air Oxygen Flow Rate 05/30/24 12:00 05/30/24 12:00 05/30/24 12:00 Temperature 98 F Pulse Rate 107 H 107 H Respiratory Rate 20 Blood Pressure 109/57 L Pulse Oximetry 99 Oxygen Delivery Room Air Oxygen Flow Rate 05/30/24 13:54 05/30/24 14:00 05/30/24 14:45 Temperature Pulse Rate 75 Respiratory Rate Blood Pressure Pulse Oximetry Oxygen Delivery Room Air Room Air Oxygen Flow Rate 05/30/24 16:00 05/30/24 16:00 05/30/24 16:00 Temperature 98.1 F Pulse Rate 103 H 103 H 72 Respiratory Rate 18 18 Blood Pressure 105/61 Pulse Oximetry 98 98 Oxygen Delivery Room Air Oxygen Flow Rate 05/30/24 18:00 05/30/24 19:52 05/30/24 20:00 Temperature 97.8 F Pulse Rate 80 112 H Respiratory Rate 18 Blood Pressure 132/78 Pulse Oximetry 100 98 Oxygen Delivery Nasal Cannula Oxygen Flow Rate 2 05/30/24 20:00 05/30/24 21:24 05/30/24 21:50 Temperature Pulse Rate 115 H 120 H 112 H Respiratory Rate 16 Blood Pressure Pulse Oximetry Oxygen Delivery Oxygen Flow Rate 05/30/24 22:00 05/31/24 00:00 05/31/24 00:00 Temperature 97.5 F L Pulse Rate 112 H 119 H Respiratory Rate 18 Blood Pressure 134/58 L Pulse Oximetry 98 Oxygen Delivery Room Air Oxygen Flow Rate 05/31/24 00:00 05/31/24 02:00 05/31/24 04:00 Temperature Pulse Rate 117 H 112 H 108 H Respiratory Rate Blood Pressure Pulse Oximetry Oxygen Delivery Oxygen Flow Rate 05/31/24 04:00 05/31/24 05:00 05/31/24 06:00 Temperature Pulse Rate 111 H 101 H Respiratory Rate 20 Blood Pressure Pulse Oximetry Oxygen Delivery Room Air Oxygen Flow Rate 05/31/24 07:50 Temperature 97.3 F L Pulse Rate 120 H Respiratory Rate 18 Blood Pressure 105/92 H Pulse Oximetry 94 Oxygen Delivery Oxygen Flow Rate Intake/Output Intake/Output: Intake & Output 05/28/24 05/29/24 05/30/24 05/31/24 23:59 23:59 23:59 23:59 Intake Total 1054 1797.0 Output Total 600 Balance 1054 1197.0 Meds/Results Medications: Active Medications Generic Name Dose Route Start Last Admin Trade Name Freq PRN Reason Stop Dose Admin Albuterol 2 puff 05/29/24 21:21 05/31/24 05:01 Albuterol Sulfate (*Sp) Aerosol 1 Puff INHALATION 2 puff Q6HRT PRN Administration Shortness Of Breath Or Wheezing Clonazepam 0.5 mg 05/30/24 21:00 05/30/24 21:23 Clonazepam (*Crx) 0.5 Mg Tablet PO 0.5 mg HS RASHMI Administration Donepezil HCl 10 mg 05/31/24 21:00 Donepezil Hcl 10 Mg Tablet PO HS RASHMI Ceftriaxone Sodium 1 gm in 50 mls @ 100 mls/hr 05/30/24 20:00 05/30/24 21:46 Rocephin 1 Gm/Ns 50 Ml IVPB 100 mls/hr Q24H RASHMI Administration Sodium Chloride 1,000 mls @ 75 mls/hr 05/29/24 20:05 05/31/24 05:59 Normal Saline Iv IV CONT Not Given .[id number] RASHMI Metoprolol Tartrate 12.5 mg 05/31/24 09:00 Metoprolol Tartrate 12.5 Mg Tablet PO Q12HR RASHMI Multivitamins/Minerals 1 tablet 05/30/24 17:35 05/30/24 19:40 Opti-Gen Tab PO 1 tablet BID RASHMI Administration Potassium Chloride 20 meq 05/31/24 09:00 Potassium Chloride 20 Meq Packet (For Liquid) PO QAM RASHMI Trazodone HCl 50 mg 05/30/24 17:20 05/30/24 21:24 Trazodone Hcl 50 Mg Tablet PO 50 mg HS PRN Administration Sleep Radiology Results: ITS Impressions Head CT 05/29/24 20:04 IMPRESSION: No skull fracture or acute intracranial finding or significant change since 06/09/[address] 05/30/24 06:28 IMPRESSION: 1. Diffuse lung disease similar to prior exams, likely a combination of granulomatous disease and mild chronic lung disease. Mild pulmonary edema or mild acute pneumonia cannot be excluded. Carotid Doppler Study 05/30/24 11:35 IMPRESSION: 1. <50% stenosis from minimal plaque in the right internal carotid artery. 2. <50% stenosis from minimal plaque in the left internal carotid artery. 3. Tachycardia with suggestion of a cardiac arrhythmia. Correlate with EKG. Abdomen Ultrasound 05/30/24 11:37 IMPRESSION: 1. Status post cholecystectomy. Normal liver with no intra or extrahepatic biliary ductal dilation. 2. Trace right pleural effusion. Chest X-Ray 05/31/24 06:15 IMPRESSION: 1. Stable interstitial pattern in the lungs, consistent with mild chronic lung disease versus mild pulmonary edema. 2. Airspace opacities at left lung base, consistent with atelectasis/scarring versus pneumonia. Labs Labs: Laboratory Results - last 24 hr 05/30/24 05/31/24 05/31/24 04:23 04:19 04:20 WBC 11.3 H RBC 3.85 L Hgb 12.3 Hct 38.1 MCV 99.0 MCH 31.9 MCHC 32.3 RDW 14.6 H Plt Count 213 MPV 11.0 H Sodium 138 Potassium 4.1 Chloride 106 Carbon Dioxide 19 L Anion Gap 13 H BUN 22 H Creatinine 0.99 Estim Creat Clear Calc 31 Estimated GFR 53 L Glucose 120 H Calcium 8.5 Total Bilirubin 0.9 Direct Bilirubin 0.0 Indirect Bilirubin 0.6 AST 103 H ALT 181 H Alkaline Phosphatase 456 H NT-Pro-B Natriuret Pep 34970 H Total Protein 6.0 L Albumin 3.5 Hospitalist [facility] Advance Care Plan I have confirmed that the patient's Advanced Care Plan is present, code status is documented, or surrogate decision maker is listed in patient medical record.: Yes Medication Reconciliation I have utilized all available resources to obtain, update and review the patients current medications (includes all prescriptions, OTC, herbals, cannabis, and nutritional supplements).: Yes
[2024-05-31] MEDS: METOPROLOL TARTRATE 12.5 MG TABLET PO ×2 (08:35→12:29)
[2024-05-31] MEDS: OPTI-GEN TAB 1 TABLET PO ×2 (08:36→18:26)
--- NOTE | 2024-05-31 11:00 | ECG_ITS ---
Test Date: 2024-05-31 11:20:27 Measurements Intervals [place] Rate: 99 P: 75 CA: 161 QRS: 259 QRSD: 145 T: 37 QT: 402 QTc: 517 Interpretive Statements SINUS RHYTHM WITH FREQUENT SUPRAVENTRICULAR PREMATURE COMPLEXES INDETERMINATE AXIS RIGHT BUNDLE BRANCH BLOCK [120+ ms QRS DURATION, UPRIGHT V1, 40+ ms S IN I/aVL/V4/V5/V6] Compared to ECG 05/30/2024 06:10:13 Sinus tachycardia no longer present Electronically Signed On 05-31-2024 16:44:04 CDT by Emir Manley M.D.
[2024-05-31] MEDS: POTASSIUM CHLORIDE 20 MEQ PACKET (FOR LIQUID) PO (11:28)
[2024-05-31 11:49] LABS: Troponin I 0.036 ng/mL (0.000-0.034)
--- NOTE | 2024-05-31 12:14 | PM.CNCAR ---
Assessment and Plan Assessment and plan (1) Tachycardia: Code(s): R00.0 - Tachycardia, unspecified Status: Acute Assessment and Plan: Probably due to dehydration and UTI. 05/30/24 Echo: EF 55-60%, diastolic dysfunction (E/e' 14), mild MR. It appears to be Sinus tachycardia with PAC's. Started on Metoprolol Tartate 25 mg BID. IVF at 75 ml/hr for rehydration. On antibiotics for UTI. Monitor on telemetry for arrhythmias. (2) Hypertension: Qualifiers: Hypertension type: essential hypertension Qualified Code(s): I10 - Essential (primary) hypertension Code(s): I10 - Essential (primary) hypertension Status: Acute Assessment and Plan: Stable. History of Present Illness History of Present Illness Consult date/time: 05/31/24 12:14 Reason For Visit: Tachycardia, UTI, dizziness Narrative: 84 yr old woman presents to hospital 2 days ago for falls. She has a history of dementia, hypertension. Daughter is at bedside. Reports she stopped drinking a couple of days prior to admission due to having to self-cath which she does 3 times a day for last 4 years. She got dizzy and fell also. She is currently confused. Normally she lives alone and can walk a block. It was noted her HR was fast into 120 bpm in sinus tachycardia. She has been given IVF. Denies chest pain, orthopnea, PND, edema. Review of Systems Review of Systems: All systems reviewed & are unremarkable except as noted in HPI and below Constitutional: Constitutional: Reports as per HPI, Denies chills and Denies fever(s) Cardiovascular: Cardiovascular: Reports as per HPI, Denies chest pain and Denies irregular heart rhythm Respiratory: Respiratory: Reports as per HPI and Reports dyspnea Gastrointestinal: Gastrointestinal: Reports as per HPI and Denies abdominal pain Genitourinary: Genitourinary: Reports as per HPI Musculoskeletal: Musculoskeletal: Reports as per HPI Neurologic: Reports as per HPI, Reports dizziness and Denies syncope [facility] Past Medical History Medical History Dermatitis Irritant contact dermatitis Self-catheterizes urinary bladder Left inguinal hernia Encounter for other specified surgical aftercare Incarcerated right inguinal hernia Partial small bowel obstruction Right inguinal hernia Lipoma of colon Hx of adenomatous colonic polyps Restless legs syndrome Acute blood loss anemia Hyponatremia Pneumoperitoneum Spleen laceration Constipation Bloating Belching symptom Diverticulosis Frequent UTI Memory loss Mild persistent asthma without complication Presbycusis, bilateral Pure hypercholesterolemia Unsteady gait Vitamin D deficiency Insomnia Anxiety Hypertension Asthma GERD (gastroesophageal reflux disease) Depression Surgical History Surgical History History of colonoscopy , complicated by splenic & injury per patient H/O inguinal hernia repair Robotic laparoscopic repair incarcerated right inguinal hernia, robotic laparoscopic repair left inguinal hernia, both repairs with mesh on 07/14 History of tubal ligation History of cholecystectomy Family History Family History Father Family history of transient ischemic attacks Patient's father is Cerebrovascular accident, Onset Age: 77 Sibling Family history of chronic obstructive pulmonary disease Family history of lung cancer Patient's brother is Mother Family history of transient ischemic attacks, Onset Age: 91 Other Family history of schizophrenia Social History Social History Social History: Surrogate medical decision maker: Che Field or Steffany Bradshaw, daughters. Code status: Full code. Caffeine-none Smoking packs per day: 2 Smoking cigarettes per day: 40.0 Years smoked: 2 Smoking pack-years: 4.00 Smoking status: Former smoker Tobacco type: cigarettes Second hand tobacco smoke exposure: No Smoking end date: 03/09/87 Alcohol intake: never Substance use: never Substance use type: does not use Do You Feel Safe in your Home?: Yes Lack of Transportation: No Lack of Food: Never True Current Housing: I Have Housing Concerned About Future Housing: No Difficulty Paying Gas/Electric Bills: No Difficulty Paying for Meds: No Currently Unemployed: No Education: Master's Degree or Higher Difficulty w/ Childcare or Family Care: No Living arrangements: alone Spiritual care concerns: No Agree to blood products: Yes Meds Home Medications and Allergies Home Medications ?Medication ?Instructions ?Recorded ?Confirmed ?Type biotin 500 mcg capsule 500 mcg PO DAILY 04/07/23 05/31/24 History cholecalciferol (vitamin D3) 125 125 mcg PO DAILY 04/07/23 05/29/24 History mcg (5,000 unit) tablet (Vitamin D3) vit C 226 mg-vit E 90 mg-copper 1 cap PO BID 04/07/23 05/29/24 History 0.8 mg-zinc oxide-lutein 5 mg capsule (PreserVision Lutein) gabapentin 300 mg capsule 300 mg PO .COMPLEX 06/08/23 05/29/24 History [id number] 8 mg-folic 400 1 tablet PO DAILY 07/10/23 05/29/24 History mcg-K 50 mcg-lutein 300 mcg tablet (Centrum Silver Women) furosemide 40 mg tablet See Rx Instructions .Route 08/06/23 05/29/24 Rx .COMPLEX #90 tabs losartan 25 mg tablet See Rx Instructions .Route 10/08/23 05/29/24 Rx .COMPLEX #90 tabs memantine 10 mg tablet 10 mg PO DAILY #90 tabs 02/15/24 05/31/24 Rx lansoprazole 30 mg capsule,delayed See Rx Instructions .Route 02/24/24 05/29/24 Rx release .COMPLEX #90 caps potassium chloride 20 mEq See Rx Instructions .Route 02/24/24 05/29/24 Rx tablet,extended release(part/cryst) .COMPLEX #90 tabs clonazepam 0.5 mg tablet 0.5 mg PO HS #30 tabs 03/19/24 05/29/24 Rx propylene glycol 0.6 % eye drops 1 drp EACH EYE DAILY PRN dry eye(s) 05/11/24 05/31/24 History (Systane Complete) bupropion HCl 150 mg tablet,12 hr See Rx Instructions .Route 05/23/24 05/29/24 Rx sustained-release .COMPLEX #90 tabs trazodone 50 mg tablet See Rx Instructions .Route 05/23/24 05/29/24 Rx .COMPLEX #90 tabs donepezil 10 mg tablet 10 mg PO DAILY 05/29/24 05/29/24 History trimethoprim 100 mg tablet 100 mg PO DAILY 05/29/24 05/29/24 History Allergies Allergy/AdvReac Type Severity Reaction Status Date / Time propoxyphene (From Darvon) Allergy Severe Swelling Verified 05/29/24 12:12 of Lip/Tongue/Throat donepezil (From Aricept) AdvReac Intermediate Abdominal Verified 05/29/24 12:12 Pain Vital Signs Vital Signs - 24 hr 05/30/24 13:54 05/30/24 14:00 05/30/24 14:45 Temperature Pulse Rate 75 Respiratory Rate Blood Pressure Pulse Oximetry Oxygen Delivery Room Air Room Air Oxygen Flow Rate 05/30/24 16:00 05/30/24 16:00 05/30/24 16:00 Temperature 98.1 F Pulse Rate 103 H 103 H 72 Respiratory Rate 18 18 Blood Pressure 105/61 Pulse Oximetry 98 98 Oxygen Delivery Room Air Oxygen Flow Rate 05/30/24 18:00 05/30/24 19:52 05/30/24 20:00 Temperature 97.8 F Pulse Rate 80 112 H Respiratory Rate 18 Blood Pressure 132/78 Pulse Oximetry 100 98 Oxygen Delivery Nasal Cannula Oxygen Flow Rate 2 05/30/24 20:00 05/30/24 21:24 05/30/24 21:50 Temperature Pulse Rate 115 H 120 H 112 H Respiratory Rate 16 Blood Pressure Pulse Oximetry Oxygen Delivery Oxygen Flow Rate 05/30/24 22:00 05/31/24 00:00 05/31/24 00:00 Temperature 97.5 F L Pulse Rate 112 H 119 H Respiratory Rate 18 Blood Pressure 134/58 L Pulse Oximetry 98 Oxygen Delivery Room Air Oxygen Flow Rate 05/31/24 00:00 05/31/24 02:00 05/31/24 04:00 Temperature Pulse Rate 117 H 112 H 108 H Respiratory Rate Blood Pressure Pulse Oximetry Oxygen Delivery Oxygen Flow Rate 05/31/24 04:00 05/31/24 05:00 05/31/24 06:00 Temperature Pulse Rate 111 H 101 H Respiratory Rate 20 Blood Pressure Pulse Oximetry Oxygen Delivery Room Air Oxygen Flow Rate 05/31/24 07:50 05/31/24 08:35 05/31/24 11:33 Temperature 97.3 F L 98.4 F Pulse Rate 120 H 112 H 111 H Respiratory Rate 18 22 H Blood Pressure 105/92 H 140/82 Pulse Oximetry 94 94 Oxygen Delivery Oxygen Flow Rate 05/31/24 11:35 05/31/24 11:36 05/31/24 11:37 Temperature 98.4 F Pulse Rate 111 H Respiratory Rate 22 H Blood Pressure 140/82 134/78 128/78 Pulse Oximetry 94 Oxygen Delivery Oxygen Flow Rate Exam Const: General: cooperative, healthy appearing and comfortable Resp: Auscultation: clear to auscultation bilaterally, no crackles, no rales, no rhonchi and no wheezes Cardio: Rate: tachycardic Rhythm: regular rhythm Heart sounds: no murmurs Peripheral pulses: dorsalis pedis present GI: GI Palp: No abdominal tenderness and Yes Soft to palpation Neuro: General: oriented to person Extrem: Right lower extremity: no edema Left lower extremity: no edema Results Labs and Meds 05/31/24 04:20 05/31/24 04:19 Lab results: Cardiac Enzymes 05/31/24 05/31/24 Range/Units 04:19 11:10 AST 103 H (14-36) U/L Troponin I 0.036 H* (0.000-0.034) ng/mL CBC 05/31/24 Range/Units 04:20 WBC 11.3 H (4.5-10.0) K/mm3 RBC 3.85 L (4.2-5.4) M/mm3 Hgb 12.3 (12.0-15.0) g/dL Hct 38.1 (37.0-47.0) % Plt Count 213 (150-375) k/mm3 Comprehensive Metabolic Panel 05/31/24 Range/Units 04:19 Sodium 138 (137-145) mmol/L Potassium 4.1 (3.4-5.0) mmol/L Chloride 106 (98-107) mmol/L Carbon Dioxide 19 L (22-30) mmol/L BUN 22 H (7-17) mg/dL Creatinine 0.99 (0.7-1.0) mg/dL Glucose 120 H (65-110) mg/dL Calcium 8.5 (8.4-10.2) mg/dL AST 103 H (14-36) U/L ALT 181 H (6-35) U/L Alkaline Phosphatase 456 H (38-126) U/L Total Protein 6.0 L (6.3-8.2) g/dL Albumin 3.5 (3.5-5.1) g/dL Intake and Output 05/30/24 05/31/24 05/31/24 23:59 07:59 15:59 Intake Total 420 120 Output Total 500 Balance -80 120 Intake: Oral 420 120 Output: Urine 500 Other: # Unmeasured Voids 3 Number of Bowel Movements Today 1 Patient Weight 05/31/24 23:59 Weight 68.1 kg
[2024-05-31] MEDS: CEFEPIME 2 GM/NS 50 ML 2 GM/50 ML BAG IVPB (14:45)
[2024-05-31] MEDS: METOPROLOL TARTRATE 25 MG TABLET PO (20:31)
[2024-05-31] MEDS: DONEPEZIL HCL 10 MG TABLET PO (20:31)
[2024-05-31] MEDS: clonazePAM (*CRX) 0.5 MG TABLET PO (20:31)
[2024-05-31] MEDS: SODIUM CHLORIDE 0.9% IV 1,000 ML 75 ML IV CONT (21:15)
[2024-05-31] MEDS: traZODone HCL 50 MG TABLET PO (21:16)
[2024-06-01] VITALS (18 sets, daily range): BP systolic 126–138; BP diastolic 67–85; PULSE 94–113; RESP 20–30; TEMP 36.3–36.8; O2SAT 94–100; BMI 29.9
[2024-06-01] MEDS: CEFEPIME 2 GM/NS 50 ML 2 GM/50 ML BAG IVPB ×2 (01:17→15:18)
[2024-06-01 04:38] LABS: Hematocrit 36.3 % (37.0-47.0); Hemoglobin 11.9 g/dL (12.0-15.0); Mean Corpuscular HGB Conc 32.8 g/dl (32-36); Mean Corpuscular Hemoglobin 31.9 pg (26-34); Mean Corpuscular Volume 97.3 fl (80-100); Mean Platelet Volume 10.9 fl (7.4-10.4); Platelet Count Result 251 k/mm3 (150-375); Red Blood Count 3.73 M/mm3 (4.2-5.4); Red Cell Distribution Width 14.8 % (11.5-14.5); White Blood Count 13.2 K/mm3 (4.5-10.0)
[2024-06-01 04:47] LABS: Alanine Aminotransferase 148 U/L (6-35); Albumin Level 3.3 g/dL (3.5-5.1); Alkaline Phosphatase 384 U/L (38-126); Anion Gap 10 mmol/L (4-12); Aspartate Amino Transferase 70 U/L (14-36); Bilirubin,Total 0.9 mg/dL (0.2-1.3); Blood Urea Nitrogen 25 mg/dL (7-17); Calcium 8.7 mg/dL (8.4-10.2); Carbon Dioxide 19 mmol/L (22-30); Chloride 107 mmol/L (98-107); Estimated CRCL calculation 32 ml/min; Estimated Glomerular Filt Rate 54; Glucose 122 mg/dL (65-110); Potassium 4.4 mmol/L (3.4-5.0); Sodium 136 mmol/L (137-145)
--- NOTE | 2024-06-01 07:59 | P.PNCA_ITS ---
Progress Note: A&P Assessment and Plan (1) Tachycardia: Code(s): R00.0 - Tachycardia, unspecified Status: Acute Assessment and Plan: Probably due to dehydration and UTI and confusion. 05/30/24 Echo: EF 55-60%, d iastolic dysfunction (E/e' 14), mild MR. It appears to be Sinus tachycardia with PAC's and transient PAT. On Metoprolol Tartate 25 mg BID. IVF at 75 ml/hr for rehydration. On antibiotics for UTI. Monitor on telemetry for arrhythmias. (2) Hypertension: Qualifiers: Hypertension type: essential hypertension Qualified Code(s): I10 - Essential (primary) hypertension Code(s): I10 - Essential (primary) hypertension Status: Acute Assessment and Plan: Stable. Subjective Date/time seen: 06/01/24 07:59 Interval history: Denies chest pain or sob. She is confused. Exam Const: General: cooperative and comfortable Orientation/consciousness: oriented to person Resp: Auscultation: clear to auscultation bilaterally, no crackles, no rales, no rhonchi and no wheezes Cardio: Rate: tachycardic Rhythm: regular rhythm Heart sounds: no murmurs Peripheral pulses: dorsalis pedis present Neuro: General: oriented to person Extrem: Right lower extremity: no edema Left lower extremity: no edema Objective Data Vital Signs Vital Signs: Vital Signs - 24 hr 05/31/24 08:00 05/31/24 08:35 05/31/24 11:33 Temperature 98.4 F Pulse Rate 120 H 112 H 111 H Respiratory Rate 22 H Blood Pressure 140/82 Pulse Oximetry 94 Oxygen Delivery 05/31/24 11:35 05/31/24 11:36 05/31/24 11:37 Temperature 98.4 F Pulse Rate 111 H Respiratory Rate 22 H Blood Pressure 140/82 134/78 128/78 Pulse Oximetry 94 Oxygen Delivery 05/31/24 12:15 05/31/24 12:29 05/31/24 14:00 Temperature Pulse Rate 113 H 102 H 115 H Respiratory Rate Blood Pressure Pulse Oximetry Oxygen Delivery 05/31/24 15:51 05/31/24 16:30 05/31/24 18:00 Temperature 98.2 F Pulse Rate 95 114 H 110 H Respiratory Rate 18 Blood Pressure 129/77 Pulse Oximetry 96 Oxygen Delivery 05/31/24 19:46 05/31/24 19:50 05/31/24 19:51 Temperature 97.8 F 97.8 F Pulse Rate 104 H 104 H 121 H Respiratory Rate 18 18 18 Blood Pressure 107/78 107/78 141/77 H Pulse Oximetry 96 96 96 Oxygen Delivery 05/31/24 20:00 05/31/24 20:00 05/31/24 20:31 Temperature Pulse Rate 100 107 H Respiratory Rate Blood Pressure Pulse Oximetry Oxygen Delivery Room Air 05/31/24 22:00 06/01/24 00:00 06/01/24 00:00 Temperature Pulse Rate 96 100 Respiratory Rate Blood Pressure Pulse Oximetry Oxygen Delivery Room Air 06/01/24 02:00 06/01/24 03:21 06/01/24 04:00 Temperature 97.7 F Pulse Rate 112 H 94 Respiratory Rate 20 Blood Pressure 135/79 Pulse Oximetry 94 Oxygen Delivery Room Air 06/01/24 04:00 06/01/24 06:00 Temperature Pulse Rate 113 H 113 H Respiratory Rate Blood Pressure Pulse Oximetry Oxygen Delivery Intake/Output Intake/Output: Intake & Output 05/29/24 05/30/24 05/31/24 06/01/24 23:59 23:59 23:59 23:59 Intake Total 1054 1797.0 1950 300 Output Total 600 450 500 Balance 1054 1197.0 1500 -200 Meds/Results Medications: Active Medications Generic Name Dose Route Start Last Admin Trade Name Freq PRN Reason Stop Dose Admin Albuterol 2 puff 05/29/24 21:21 05/31/24 05:01 Albuterol Sulfate (*Sp) Aerosol 1 Puff INHALATION 2 puff Q6HRT PRN Administration Shortness Of Breath Or Wheezing Clonazepam 0.5 mg 05/30/24 21:00 05/31/24 20:31 Clonazepam (*Crx) 0.5 Mg Tablet PO 0.5 mg HS RASHMI Administration Donepezil HCl 10 mg 05/31/24 21:00 05/31/24 20:31 Donepezil Hcl 10 Mg Tablet PO 10 mg HS RASHMI Administration Sodium Chloride 1,000 mls @ 75 mls/hr 05/29/24 20:05 05/31/24 21:15 Normal Saline Iv IV CONT 75 mls/hr .[id number] RASHMI Administration Cefepime HCl 2 gm in 50 mls @ 100 mls/hr 05/31/24 14:00 06/01/24 01:17 Maxipime 2 Gm/Ns 50 Ml IVPB 06/07/24 02:29 100 mls/hr Q12H RASHMI Administration Metoprolol Tartrate 25 mg 05/31/24 21:00 05/31/24 20:31 Metoprolol Tartrate 25 Mg Tablet PO 25 mg Q12HR RASHMI Administration Multivitamins/Minerals 1 tablet 05/30/24 17:35 05/31/24 18:26 Opti-Gen Tab PO 1 tablet BID RASHMI Administration Potassium Chloride 20 meq 05/31/24 09:00 05/31/24 11:28 Potassium Chloride 20 Meq Packet (For Liquid) PO 20 meq QAM RASHMI Administration Trazodone HCl 50 mg 05/30/24 17:20 05/31/24 21:16 Trazodone Hcl 50 Mg Tablet PO 50 mg HS PRN Administration Sleep Radiology Results: ITS Impressions Head CT 05/29/24 20:04 IMPRESSION: No skull fracture or acute intracranial finding or significant change since 06/09/[address] 05/30/24 06:28 IMPRESSION: 1. Diffuse lung disease similar to prior exams, likely a combination of granulomatous disease and mild chronic lung disease. Mild pulmonary edema or mild acute pneumonia cannot be excluded. Carotid Doppler Study 05/30/24 11:35 IMPRESSION: 1. <50% stenosis from minimal plaque in the right internal carotid artery. 2. <50% stenosis from minimal plaque in the left internal carotid artery. 3. Tachycardia with suggestion of a cardiac arrhythmia. Correlate with EKG. Abdomen Ultrasound 05/30/24 11:37 IMPRESSION: 1. Status post cholecystectomy. Normal liver with no intra or extrahepatic biliary ductal dilation. 2. Trace right pleural effusion. Chest X-Ray 05/31/24 06:15 IMPRESSION: 1. Stable interstitial pattern in the lungs, consistent with mild chronic lung disease versus mild pulmonary edema. 2. Airspace opacities at left lung base, consistent with atelectasis/scarring versus pneumonia. Chest CTA 05/31/24 09:28 IMPRESSION: 1. No pulmonary embolism. 2. Bilateral basal atelectasis versus pneumonia with minimal effusion. 3. Multiple tiny nodules unchanged from previous examination. 4. Slightly enlarged lymph nodes in the precarinal area. Labs Labs: Laboratory Results - last 24 hr 05/31/24 06/01/24 11:10 04:12 WBC 13.2 H RBC 3.73 L Hgb 11.9 L Hct 36.3 L MCV 97.3 MCH 31.9 MCHC 32.8 RDW 14.8 H Plt Count 251 MPV 10.9 H Sodium 136 L Potassium 4.4 Chloride 107 Carbon Dioxide 19 L Anion Gap 10 BUN 25 H Creatinine 0.98 Estim Creat Clear Calc 32 Estimated GFR 54 L Glucose 122 H Calcium 8.7 Total Bilirubin 0.9 AST 70 H ALT 148 H Alkaline Phosphatase 384 H Troponin I 0.036 H* Total Protein 6.0 L Albumin 3.3 L
[2024-06-01] MEDS: OPTI-GEN TAB 1 TABLET PO ×2 (09:00→17:53)
[2024-06-01] MEDS: POTASSIUM CHLORIDE 20 MEQ PACKET (FOR LIQUID) PO (09:01)
[2024-06-01] MEDS: METOPROLOL TARTRATE 25 MG TABLET PO ×2 (09:01→20:52)
[2024-06-01] MEDS: SODIUM CHLORIDE 0.9% IV 1,000 ML 75 ML IV CONT (10:36)
--- NOTE | 2024-06-01 10:40 | PM.IMPN ---
Progress Note: A&P Assessment and Plan (1) MEENU (acute kidney injury): Code(s): N17.9 - Acute kidney failure, unspecified Status: Acute (2) Acute UTI: Code(s): N39.0 - Urinary tract infection, site not specified Status: Acute Plan MEENU Resolved Likely from dehydration Patient reported poor appetite from yesterday Creatinine 1.66, baseline level 0.18. Continue gentle rehydration since patient reported poor appetite from yesterday reassess in the am to consider continuing rehydration vs diuresis per Pulm edema on CXR Monitor. Sinus tachycardia Metoprolol 25 p.o. b.i.d. Rule out PE Possibly due to dehydration Reviewed EKG and echocardiogram Possible UTI Urine and blood culture ordered Urine culture shows Enterobacter Hormarchei Continue cefepime, gentle rehydration and monitor. Patient does self intermittent catheterization Pulmonary edema rule out CHF Chest x-ray showed pulmonary edema EKG showed ectopic atrial tachycardia, initially showed a sinus tachycardia. Echo ordered shows no significant finding Repeat CXR in the Am and ekg, reassess in the am and adjust care Near syncope and fall From dehydration vs infection vs arrhythmia vs cardiomyopathy continue above care PT/OT ordered Elevated liver enzymes Ordered ultrasound and hepatitis panel Possible due to congestion ?Dehydration rule out infection AST 114, ALT 218, alkaline phosphatase 364. Asthma Continue DuoNeb treatment. Hypertension Titrate her medication clinical course. DVT prophylaxis subQ Lovenox Full code Surrogate decision maker is Che mullen Subjective Date/time seen: 06/01/24 10:40 Interval history: Patient has increased LFTs possibly due to congestion. Patient will be discharged with Cefepime until 06/07/2024.Patient family is frustrated since patient is not able to sleep in hospital. Increased Trazodone from 50mg to 100mg and Melatonin. Review of Systems Review of Systems: All other systems reviewed and negative except as noted in the history above. Exam Narrative: General: alert and comfortable Eyes: EOMI, PERRLA ENNT External ears normal, Neck is supple, no masses, Respiratory systems: Clear to auscultation Cardiovascular S1, S2, normal rhythm, no murmur, rub, or gallop; no thrill or palpable murmurs on palpation. Gastrointestinal: soft, non-tender, and non-distended abdomen with no masses; BS present Skin: no rash, lesions, ulcerations, subcutaneous nodules or induration Musculoskeletal: no abnormality and no tenderness, normal ROM Neurologic: Alert and oriented x3, non focal Mental Status Exam: normal affect Objective Data Vital Signs Vital Signs: Vital Signs - 24 hr 05/31/24 11:33 05/31/24 11:35 05/31/24 11:36 Temperature 98.4 F 98.4 F Pulse Rate 111 H 111 H Respiratory Rate 22 H 22 H Blood Pressure 140/82 140/82 134/78 Pulse Oximetry 94 94 Oxygen Delivery 05/31/24 11:37 05/31/24 12:15 05/31/24 12:29 Temperature Pulse Rate 113 H 102 H Respiratory Rate Blood Pressure 128/78 Pulse Oximetry Oxygen Delivery 05/31/24 14:00 05/31/24 15:51 05/31/24 16:30 Temperature 98.2 F Pulse Rate 115 H 95 114 H Respiratory Rate 18 Blood Pressure 129/77 Pulse Oximetry 96 Oxygen Delivery 05/31/24 18:00 05/31/24 19:46 05/31/24 19:50 Temperature 97.8 F 97.8 F Pulse Rate 110 H 104 H 104 H Respiratory Rate 18 18 Blood Pressure 107/78 107/78 Pulse Oximetry 96 96 Oxygen Delivery 05/31/24 19:51 05/31/24 20:00 05/31/24 20:00 Temperature Pulse Rate 121 H 100 Respiratory Rate 18 Blood Pressure 141/77 H Pulse Oximetry 96 Oxygen Delivery Room Air 05/31/24 20:31 05/31/24 22:00 06/01/24 00:00 Temperature Pulse Rate 107 H 96 Respiratory Rate Blood Pressure Pulse Oximetry Oxygen Delivery Room Air 06/01/24 00:00 06/01/24 02:00 06/01/24 03:21 Temperature 97.7 F Pulse Rate 100 112 H 94 Respiratory Rate 20 Blood Pressure 135/79 Pulse Oximetry 94 Oxygen Delivery 06/01/24 04:00 06/01/24 04:00 06/01/24 06:00 Temperature Pulse Rate 113 H 113 H Respiratory Rate Blood Pressure Pulse Oximetry Oxygen Delivery Room Air 06/01/24 08:00 06/01/24 08:00 06/01/24 09:01 Temperature 97.4 F L 97.6 F Pulse Rate 104 H 111 H 97 Respiratory Rate 20 21 H Blood Pressure 138/85 130/83 Pulse Oximetry 95 95 Oxygen Delivery 06/01/24 10:26 06/01/24 10:27 Temperature Pulse Rate 105 H 104 H Respiratory Rate Blood Pressure 126/82 131/81 Pulse Oximetry 97 95 Oxygen Delivery Intake/Output Intake/Output: Intake & Output 05/29/24 05/30/24 05/31/24 06/01/24 23:59 23:59 23:59 23:59 Intake Total 1054 1797.0 1950 1300 Output Total 600 450 500 Balance 1054 1197.0 1500 800 Meds/Results Medications: Active Medications Generic Name Dose Route Start Last Admin Trade Name Freq PRN Reason Stop Dose Admin Albuterol 2 puff 05/29/24 21:21 05/31/24 05:01 Albuterol Sulfate (*Sp) Aerosol 1 Puff INHALATION 2 puff Q6HRT PRN Administration Shortness Of Breath Or Wheezing Clonazepam 0.5 mg 05/30/24 21:00 05/31/24 20:31 Clonazepam (*Crx) 0.5 Mg Tablet PO 0.5 mg HS RASHMI Administration Donepezil HCl 10 mg 05/31/24 21:00 05/31/24 20:31 Donepezil Hcl 10 Mg Tablet PO 10 mg HS RASHMI Administration Sodium Chloride 1,000 mls @ 75 mls/hr 05/29/24 20:05 06/01/24 10:36 Normal Saline Iv IV CONT 75 mls/hr .[id number] RASHMI Administration Cefepime HCl 2 gm in 50 mls @ 100 mls/hr 05/31/24 14:00 06/01/24 01:17 Maxipime 2 Gm/Ns 50 Ml IVPB 06/07/24 02:29 100 mls/hr Q12H RASHMI Administration Metoprolol Tartrate 25 mg 05/31/24 21:00 06/01/24 09:01 Metoprolol Tartrate 25 Mg Tablet PO 25 mg Q12HR RASHMI Administration Multivitamins/Minerals 1 tablet 05/30/24 17:35 06/01/24 09:00 Opti-Gen Tab PO 1 tablet BID RASHMI Administration Potassium Chloride 20 meq 05/31/24 09:00 06/01/24 09:01 Potassium Chloride 20 Meq Packet (For Liquid) PO 20 meq QAM RASHMI Administration Trazodone HCl 50 mg 05/30/24 17:20 05/31/24 21:16 Trazodone Hcl 50 Mg Tablet PO 50 mg HS PRN Administration Sleep Radiology Results: ITS Impressions Head CT 05/29/24 20:04 IMPRESSION: No skull fracture or acute intracranial finding or significant change since 06/09/[address] 05/30/24 06:28 IMPRESSION: 1. Diffuse lung disease similar to prior exams, likely a combination of granulomatous disease and mild chronic lung disease. Mild pulmonary edema or mild acute pneumonia cannot be excluded. Carotid Doppler Study 05/30/24 11:35 IMPRESSION: 1. <50% stenosis from minimal plaque in the right internal carotid artery. 2. <50% stenosis from minimal plaque in the left internal carotid artery. 3. Tachycardia with suggestion of a cardiac arrhythmia. Correlate with EKG. Abdomen Ultrasound 05/30/24 11:37 IMPRESSION: 1. Status post cholecystectomy. Normal liver with no intra or extrahepatic biliary ductal dilation. 2. Trace right pleural effusion. Chest X-Ray 05/31/24 06:15 IMPRESSION: 1. Stable interstitial pattern in the lungs, consistent with mild chronic lung disease versus mild pulmonary edema. 2. Airspace opacities at left lung base, consistent with atelectasis/scarring versus pneumonia. Chest CTA 05/31/24 09:28 IMPRESSION: 1. No pulmonary embolism. 2. Bilateral basal atelectasis versus pneumonia with minimal effusion. 3. Multiple tiny nodules unchanged from previous examination. 4. Slightly enlarged lymph nodes in the precarinal area. Labs Labs: Laboratory Results - last 24 hr 05/31/24 06/01/24 11:10 04:12 WBC 13.2 H RBC 3.73 L Hgb 11.9 L Hct 36.3 L MCV 97.3 MCH 31.9 MCHC 32.8 RDW 14.8 H Plt Count 251 MPV 10.9 H Sodium 136 L Potassium 4.4 Chloride 107 Carbon Dioxide 19 L Anion Gap 10 BUN 25 H Creatinine 0.98 Estim Creat Clear Calc 32 Estimated GFR 54 L Glucose 122 H Calcium 8.7 Total Bilirubin 0.9 AST 70 H ALT 148 H Alkaline Phosphatase 384 H Troponin I 0.036 H* Total Protein 6.0 L Albumin 3.3 L Hospitalist MIPS Advance Care Plan I have confirmed that the patient's Advanced Care Plan is present, code status is documented, or surrogate decision maker is listed in patient medical record.: Yes Medication Reconciliation I have utilized all available resources to obtain, update and review the patients current medications (includes all prescriptions, OTC, herbals, cannabis, and nutritional supplements).: Yes
[2024-06-01 11:32] LABS: Hepatitis B Surface Antigen Negative (Negative)
[2024-06-01 11:38] LABS: HAV RESULT Negative (Negative); Hepatitis B Core IgM Result Negative (Negative)
[2024-06-01 11:49] LABS: Hepatitis C Virus Antibody Negative (Negative)
[2024-06-01] MEDS: clonazePAM (*CRX) 0.5 MG TABLET PO (20:51)
[2024-06-01] MEDS: traZODone HCL 50 MG TABLET 100 MG PO (20:51)
[2024-06-01] MEDS: DONEPEZIL HCL 10 MG TABLET PO (20:51)
[2024-06-01] MEDS: MELATONIN 5 MG TABLET PO (20:52)
[2024-06-02] VITALS (11 sets, daily range): BP systolic 123–136; BP diastolic 65–87; PULSE 78–101; RESP 16–22; TEMP 36.4–36.7; O2SAT 96–100
[2024-06-02] MEDS: CEFEPIME 2 GM/NS 50 ML 2 GM/50 ML BAG IVPB ×2 (01:08→16:54)
[2024-06-02 04:45] LABS: Hematocrit 36.6 % (37.0-47.0); Hemoglobin 11.7 g/dL (12.0-15.0); Mean Corpuscular Hemoglobin 31.5 pg (26-34); Mean Corpuscular Volume 98.7 fl (80-100); Platelet Count Result 281 k/mm3 (150-375); Red Blood Count 3.71 M/mm3 (4.2-5.4); Red Cell Distribution Width 15.1 % (11.5-14.5); White Blood Count 14.9 K/mm3 (4.5-10.0)
[2024-06-02 04:53] LABS: Alanine Aminotransferase 151 U/L (6-35); Albumin Level 3.2 g/dL (3.5-5.1); Alkaline Phosphatase 367 U/L (38-126); Anion Gap 12 mmol/L (4-12); Aspartate Amino Transferase 79 U/L (14-36); Bilirubin,Total 0.7 mg/dL (0.2-1.3); Blood Urea Nitrogen 33 mg/dL (7-17); Calcium 9.3 mg/dL (8.4-10.2); Carbon Dioxide 14 mmol/L (22-30); Chloride 110 mmol/L (98-107); Estimated CRCL calculation 30 ml/min; Estimated Glomerular Filt Rate 50; Glucose 117 mg/dL (65-110); Potassium 4.5 mmol/L (3.4-5.0); Sodium 136 mmol/L (137-145)
--- NOTE | 2024-06-02 08:08 | P.PNCA_ITS ---
Progress Note: A&P Assessment and Plan (1) Tachycardia: Code(s): R00.0 - Tachycardia, unspecified Status: Acute Assessment and Plan: Probably due to dehydration and UTI and confusion. 05/30/24 Echo: EF 55-60%, d iastolic dysfunction (E/e' 14), mild MR. It appears to be Sinus tachycardia with PAC's and transient PAT. On Metoprolol Tartate 25 mg BID. IVF at 75 ml/hr for rehydration. On antibiotics for UTI. Monitor on telemetry for arrhythmias. Will sign off, please call with any questions. (2) Hypertension: Qualifiers: Hypertension type: essential hypertension Qualified Code(s): I10 - Essential (primary) hypertension Code(s): I10 - Essential (primary) hypertension Status: Acute Assessment and Plan: Stable. Subjective Date/time seen: 06/02/24 08:08 Interval history: Denies chest pain or sob. She is confused. Exam Const: General: cooperative, healthy appearing and comfortable Orientation/consciousness: oriented to person Resp: Auscultation: clear to auscultation bilaterally, no crackles, no rales, no rhonchi and no wheezes Cardio: Rate: regular rate Rhythm: regular rhythm Heart sounds: no murmurs Peripheral pulses: dorsalis pedis present Neuro: General: oriented to person Extrem: Right lower extremity: no edema Left lower extremity: no edema Objective Data Vital Signs Vital Signs: Vital Signs - 24 hr 06/01/24 08:30 06/01/24 09:01 06/01/24 10:00 Temperature Pulse Rate 109 H 97 106 H Respiratory Rate Blood Pressure Pulse Oximetry Oxygen Delivery 06/01/24 10:26 06/01/24 10:27 06/01/24 12:00 Temperature 97.3 F L Pulse Rate 105 H 104 H 101 H Respiratory Rate 30 H Blood Pressure 126/82 131/81 131/81 Pulse Oximetry 97 95 95 Oxygen Delivery 06/01/24 12:00 06/01/24 14:00 06/01/24 16:00 Temperature 98.2 F Pulse Rate 105 H 100 105 H Respiratory Rate 20 Blood Pressure 127/82 Pulse Oximetry 98 Oxygen Delivery 06/01/24 16:00 06/01/24 18:00 06/01/24 20:00 Temperature 97.5 F L Pulse Rate 104 H 99 110 H Respiratory Rate 22 H Blood Pressure 128/67 Pulse Oximetry 100 Oxygen Delivery 06/01/24 20:00 06/01/24 20:00 06/01/24 20:52 Temperature Pulse Rate 104 H 110 H Respiratory Rate Blood Pressure Pulse Oximetry Oxygen Delivery Room Air 06/01/24 22:00 06/02/24 00:00 06/02/24 00:00 Temperature 98.0 F Pulse Rate 94 98 Respiratory Rate 18 Blood Pressure 123/65 Pulse Oximetry 100 Oxygen Delivery Room Air 06/02/24 00:00 06/02/24 02:00 06/02/24 03:59 Temperature 97.7 F Pulse Rate 101 H 100 96 Respiratory Rate 22 H Blood Pressure 133/86 Pulse Oximetry 98 Oxygen Delivery 06/02/24 04:00 06/02/24 04:00 06/02/24 06:00 Temperature Pulse Rate 82 87 Respiratory Rate Blood Pressure Pulse Oximetry Oxygen Delivery Room Air 06/02/24 08:00 Temperature 97.5 F L Pulse Rate 90 Respiratory Rate 16 Blood Pressure 136/73 Pulse Oximetry 98 Oxygen Delivery Intake/Output Intake/Output: Intake & Output 05/30/24 05/31/24 06/01/24 06/02/24 23:59 23:59 23:59 23:59 Intake Total 1797.0 1950 2460 50 Output Total 766 682 8347 350 Balance 1197.0 1500 1410 -300 Meds/Results Medications: Active Medications Generic Name Dose Route Start Last Admin Trade Name Freq PRN Reason Stop Dose Admin Albuterol 2 puff 05/29/24 21:21 05/31/24 05:01 Albuterol Sulfate (*Sp) Aerosol 1 Puff INHALATION 2 puff Q6HRT PRN Administration Shortness Of Breath Or Wheezing Clonazepam 0.5 mg 05/30/24 21:00 06/01/24 20:51 Clonazepam (*Crx) 0.5 Mg Tablet PO 0.5 mg HS RASHMI Administration Donepezil HCl 10 mg 05/31/24 21:00 06/01/24 20:51 Donepezil Hcl 10 Mg Tablet PO 10 mg HS RASHMI Administration Enoxaparin Sodium 30 mg 06/02/24 09:00 Enoxaparin 30 Mg/0.3 Ml Syringe SUB-Q DAILY RASHMI Cefepime HCl 2 gm in 50 mls @ 100 mls/hr 05/31/24 14:00 06/02/24 01:38 Maxipime 2 Gm/Ns 50 Ml IVPB 06/07/24 02:29 Infused Q12H RASHMI Infusion Melatonin 5 mg 06/01/24 21:00 06/01/24 20:52 Melatonin 5 Mg Tablet PO 5 mg HS RASHMI Administration Metoprolol Tartrate 25 mg 05/31/24 21:00 06/01/24 20:52 Metoprolol Tartrate 25 Mg Tablet PO 25 mg Q12HR RASHMI Administration Multivitamins/Minerals 1 tablet 05/30/24 17:35 06/01/24 17:53 Opti-Gen Tab PO 1 tablet BID RASHMI Administration Potassium Chloride 20 meq 05/31/24 09:00 06/01/24 09:01 Potassium Chloride 20 Meq Packet (For Liquid) PO 20 meq QAM RASHMI Administration Trazodone HCl 100 mg 06/01/24 21:00 06/01/24 20:51 Trazodone Hcl 50 Mg Tablet PO 100 mg HS RASHMI Administration Radiology Results: ITS Impressions Head CT 05/29/24 20:04 IMPRESSION: No skull fracture or acute intracranial finding or significant change since 06/09/[address] 05/30/24 06:28 IMPRESSION: 1. Diffuse lung disease similar to prior exams, likely a combination of granulomatous disease and mild chronic lung disease. Mild pulmonary edema or mild acute pneumonia cannot be excluded. Carotid Doppler Study 05/30/24 11:35 IMPRESSION: 1. <50% stenosis from minimal plaque in the right internal carotid artery. 2. <50% stenosis from minimal plaque in the left internal carotid artery. 3. Tachycardia with suggestion of a cardiac arrhythmia. Correlate with EKG. Abdomen Ultrasound 05/30/24 11:37 IMPRESSION: 1. Status post cholecystectomy. Normal liver with no intra or extrahepatic biliary ductal dilation. 2. Trace right pleural effusion. Chest X-Ray 05/31/24 06:15 IMPRESSION: 1. Stable interstitial pattern in the lungs, consistent with mild chronic lung disease versus mild pulmonary edema. 2. Airspace opacities at left lung base, consistent with atelectasis/scarring versus pneumonia. Chest CTA 05/31/24 09:28 IMPRESSION: 1. No pulmonary embolism. 2. Bilateral basal atelectasis versus pneumonia with minimal effusion. 3. Multiple tiny nodules unchanged from previous examination. 4. Slightly enlarged lymph nodes in the precarinal area. Labs Labs: Laboratory Results - last 24 hr 06/01/24 06/02/24 04:12 04:27 WBC 14.9 H RBC 3.71 L Hgb 11.7 L Hct 36.6 L MCV 98.7 MCH 31.5 MCHC 32.0 RDW 15.1 H Plt Count 281 MPV 11.0 H Sodium 136 L Potassium 4.5 Chloride 110 H Carbon Dioxide 14 L Anion Gap 12 BUN 33 H Creatinine 1.04 H Estim Creat Clear Calc 30 Estimated GFR 50 L Glucose 117 H Calcium 9.3 Total Bilirubin 0.7 AST 79 H ALT 151 H Alkaline Phosphatase 367 H Total Protein 6.0 L Albumin 3.2 L Hepatitis A IgM Ab Negative Hep Bs Antigen Negative Hep B Core IgM Ab Negative Hepatitis C Ab Screen Negative
[2024-06-02] MEDS: METOPROLOL TARTRATE 25 MG TABLET PO (10:00)
[2024-06-02] MEDS: ENOXAPARIN 30 MG/0.3 ML SYRINGE SUB-Q (10:01)
[2024-06-02] MEDS: OPTI-GEN TAB 1 TABLET PO (10:01)
[2024-06-02] MEDS: POTASSIUM CHLORIDE 20 MEQ PACKET (FOR LIQUID) PO (10:01)
[2024-06-02] MEDS: LIDOCAINE 1% LOCAL INJ 2 ML AMPUL 5 ML INFILTRATE (13:33)
[2024-06-02 13:35] LABS: Ammonia < 9 umol/L (9-30)
[2024-06-02 14:46] LABS: Folic Acid > 20.0 ng/mL (2.76->20)
[2024-06-02] MEDS: SALINE LOCK FLUSH 10 ML IV PUSH (16:55)
--- NOTE | 2024-06-02 17:07 | P.DS_ITS ---
DS: Admitting Diagnosis Discharge Date 06/02/2024 Admitting Diagnosis 06/02/2024 DS: Discharge Diagnosis Discharge Diagnosis (1) MEENU (acute kidney injury): Code(s): N17.9 - Acute kidney failure, unspecified Status: Acute (2) Acute UTI: Code(s): N39.0 - Urinary tract infection, site not specified Status: Acute DS: Summary Hospital Course Hospital Course: 84 F past medical history of hypertension and asthma who presented to the ER on account of lightheadedness. Patient patient was in her usual state of health until about a day prior to presentation when she started having very poor appetite followed by lightheadedness and 1 episode of fall. Denies any loss of consciousness or head trauma, no vomiting no diarrhea no abdominal pain no chest pain shortness are b reath and no dysuria. She self catheterizes for urination. Denies any focal weakness or numbness. Heart rate 122, respiratory 18, blood pressure 100/56, saturating 99% on room air. Labs notable for WBC 8.9, sodium is 133, creatinine is 1.6 his baseline is about 1.18. AST 1 for ALT 218 alkaline phosphatase 564. Urine is turbid positive for leukocyte Estrace and pyuria. Flu RSV COVID. Ches t x-ray showed pulmonary vascular congestion subpleural and pulmonary interstitial edema. EKG initially showed a sinus tachycardia however repeat EKG showed ectopic atrial tachycardia. Patient was suspected of UTI and started on Rocephin prior to admission. During the hospitalization patient was treated for the following conditions. Patient family keep insisting on discharge the patient from yesterday. I performed MRI to r/o any CVA causing metabolic encephalopathy. MEENU Resolved Likely from dehydration Advised to hydrate well Will hold furosemide 40 mg p.o. q.d. Left ventricular systolic function is normal, estimated at 55-60%. Sinus tachycardia Metoprolol 25 p.o. b.i.d. Rule out PE Possibly due to dehydration Reviewed EKG and echocardiogram shows Left ventricular systolic function is normal, estimated at 55-60%. Metabolic encephalopathy 2/2 UTI Urine and blood culture ordered Urine culture shows Enterobacter Hormarchei Continue cefepime until 06/07, gentle rehydration and monitor. Patient does self intermittent catheterization MRI brain negative Pulmonary edema Initially Chest x-ray showed pulmonary edema CTA shows bilateral basal atelectasis versus pneumonia with minimal effusion EKG showed ectopic atrial tachycardia, initially showed a sinus tachycardia. Echo ordered shows no significant finding Lasix as needed Near syncope and fall From dehydration vs infection vs arrhythmia vs cardiomyopathy continue above care PT/OT ordered Elevated liver enzymes Liver ultrasound 1. Status post cholecystectomy. Normal liver with no intra or extrahepatic keshav iary ductal dilation. 2. Trace right pleural effusion Hepatitis panel negative Possible due to congestion ?Dehydration rule out infection AST 114, ALT 218, alkaline phosphatase 364. Asthma Continue DuoNeb treatment. Hypertension Titrate her medication clinical course. Full code Surrogate decision maker is daughterChe Status at Discharge Cognitive/behavioral status at discharge: Stable Time Spent with Patient Time attestation: Total time spent providing and/or coordinating discharge services: 45 minutes Exam Narrative: General: alert and comfortable Eyes: EOMI, PERRLA ENNT External ears normal, Neck is supple, no masses, Respiratory systems: Clear to auscultation Cardiovascular S1, S2, normal rhythm, no murmur, rub, or gallop; no thrill or palpable murmurs on palpation. Gastrointestinal: soft, non-tender, and non-distended abdomen with no masses; BS present Skin: no rash, lesions, ulcerations, subcutaneous nodules or induration Musculoskeletal: no abnormality and no tenderness, normal ROM Neurologic: Alert and oriented x3, non focal Mental Status Exam: normal affect DS: Data Data Completed and Pending Labs on day of discharge: Labs from last 24 hours 06/02/24 06/02/24 12:45 04:27 WBC 14.9 H RBC 3.71 L Hgb 11.7 L Hct 36.6 L MCV 98.7 MCH 31.5 MCHC 32.0 RDW 15.1 H Plt Count 281 MPV 11.0 H Sodium 136 L Potassium 4.5 Chloride 110 H Carbon Dioxide 14 L Anion Gap 12 BUN 33 H Creatinine 1.04 H Estim Creat Clear Calc 30 Estimated GFR 50 L Glucose 117 H Calcium 9.3 Total Bilirubin 0.7 AST 79 H ALT 151 H Alkaline Phosphatase 367 H Ammonia < 9 L Total Protein 6.0 L Albumin 3.2 L Vitamin B12 934.0 H Folate > 20.0 H Additional Comments Additional comments: ITS Impressions Chest X-Ray 05/29/24 20:02 IMPRESSION: Pulmonary vascular congestion, subpleural and pulmonary interstitial edema, new since 07/09/[address] 05/29/24 20:04 IMPRESSION: No skull fracture or acute intracranial finding or significant change since 06/09/2021 Chest X-Ray 05/30/24 06:23 IMPRESSION: 1. Interstitial opacities in the lower lung zones, consistent with atelectasis/scarring versus mild pulmonary edema. Chest CT 05/30/24 06:28 IMPRESSION: 1. Diffuse lung disease similar to prior exams, likely a combination of g ranulomatous disease and mild chronic lung disease. Mild pulmonary edema or mild acute pneumonia cannot be excluded. Carotid Doppler Study 05/30/24 11:35 IMPRESSION: 1. <50% stenosis from minimal plaque in the right internal carotid artery. 2. <50% stenosis from minimal plaque in the left internal carotid artery. 3. Tachycardia with suggestion of a cardiac arrhythmia. Correlate with EKG. Abdomen Ultrasound 05/30/24 11:37 IMPRESSION: 1. Status post cholecystectomy. Normal liver with no intra or extrahepatic biliary ductal dilation. 2. Trace right pleural effusion. Chest X-Ray 05/31/24 06:15 IMPRESSION: 1. Stable interstitial pattern in the lungs, consistent with mild chronic lung disease versus mild pulmonary edema. 2. Airspace opacities at left lung base, consistent with atelectasis/scarring versus pneumonia. Chest CTA 05/31/24 09:28 IMPRESSION: 1. No pulmonary embolism. 2. Bilateral basal atelectasis versus pneumonia with minimal effusion. 3. Multiple tiny nodules unchanged from previous examination. 4. Slightly enlarged lymph nodes in the precarinal area. Brain MRI 06/02/24 11:33 IMPRESSION: 1. Normal aging brain. Discharge Plan Discharge Attending physician on discharge: Armin Chiu Consulting providers: Armond Castaneda Discharging Clinician: Armin Chiu Anticipated Discharge Date/Time: 06/02/24 17:21 Patient Disposition: Home Health Service Activity: as tolerated Diet: regular Discharge Instructions: Per Care Coordination: Patient to discharge to home with [facility] for RN/PT/OT services. , fax# [phone]. RN please fax discharge orders and medications to [facility] at discharge. Office will call patient to set up initial visit. [facility] following also, ph# [phone]. Patient needs to continue cefepime until 06/07. Needs follow-up CMP and LFTs with PCP Patient needs a close follow-up with PCP, neurologist, psychiatrist and oxygen equipment aide Please discuss with your PCP if patient needs to continue Lasix. Check daily morning weights after voiding. Call your doctor if you gain more than 3 lb in 2 days or 5 lb in 1 week. Holding losartan as well due to renal function Please discuss with your PCP if losartan needs to be continued. Check blood pressure 1 to 2 times a day. Record and bring into your doctor for review. Call your doctor if your blood pressure is greater than 180/110 or less than 90/45. Walk with cane or other assist device. Take precautions to avoid falls. Rise slowly from a lying or sitting position. Pause before standing or walking. Contact your doctor or call 911 and come to the Emergency Room if you have any type of trauma, lightheadedness with standing or other worrisome symptoms. Avoid NSAIDs (ibuprofen, naproxen, Aleve). Tylenol is safe to take. Thank you for using [facility] for your health care needs. Patient Instructions: Antibiotic Form, Urinary Tract Infection in Women (GEN), Dizziness (GEN) Patient Language: Upper Sorbian Stand Alone Forms: General Discharge Information Follow-up/Referrals: Armond Castaneda DO [Physician] - Evangelista Carlson MD [Primary Care Provider] - Discharge Medications: New cefepime 2 gram Recon Soln 2 g IV Q12H Qty: 10 3RF Rx Instructions: Patient needs to complete the course on 06/07 melatonin 5 mg Tablet 5 mg PO HS Qty: 30 0RF metoprolol tartrate 25 mg Tablet 25 mg PO Q12HR Qty: 30 0RF Continued Systane Complete 0.6 % drops 1 drp EACH EYE DAILY PRN (Reason: dry eye(s)) Centrum Silver Women 8 mg iron-400 mcg-50 mcg Tablet 1 tablet PO DAILY biotin 500 mcg Capsule 500 mcg PO DAILY PreserVision Lutein 226-90-0.8-5 mg Capsule 1 cap PO BID cholecalciferol (vitamin D3) [Vitamin D3] 125 mcg (5,000 unit) Tablet 125 mcg PO DAILY gabapentin 300 mg capsule 300 mg PO .COMPLEX Rx Instructions: 300 mg orally in the AM, 2 in PM, and 1 HS; donepezil 10 mg tablet 10 mg PO DAILY memantine 10 mg tablet 10 mg PO DAILY Qty: 90 2RF lansoprazole 30 mg capsule,delayed release(DR/EC) See Rx Instructions .ROUTE .COMPLEX Qty: 90 2RF Dose Instruction: TAKE 1 CAPSULE BY MOUTH DAILY BEFORE A MEAL Rx Instructions: TAKE 1 CAPSULE BY MOUTH DAILY BEFORE A MEAL potassium chloride 20 mEq tablet,ER particles/crystals See Rx Instructions .ROUTE .COMPLEX Qty: 90 2RF Dose Instruction: TAKE 1 TABLET BY MOUTH DAILY Rx Instructions: TAKE 1 TABLET BY MOUTH DAILY clonazepam 0.5 mg tablet 0.5 mg PO HS Qty: 30 2RF trazodone 50 mg tablet See Rx Instructions .ROUTE .COMPLEX Qty: 90 2RF Dose Instruction: TAKE 1 TABLET BY MOUTH EVERY DAY AT BEDTIME NEEDED FOR SLEEP Rx Instructions: TAKE 1 TABLET BY MOUTH EVERY DAY AT BEDTIME NEEDED FOR SLEEP bupropion HCl 150 mg tablet sustained-release 12 hr See Rx Instructions .ROUTE .COMPLEX Qty: 90 2RF Dose Instruction: TAKE 1 TABLET BY MOUTH EVERY MORNING Rx Instructions: TAKE 1 TABLET BY MOUTH EVERY MORNING Held furosemide 40 mg tablet See Rx Instructions .ROUTE .COMPLEX Qty: 90 3RF Hold Instructions: Resume on 07/06/24. Please discuss with your PCP you patient needs to continue Lasix. Check daily morning weights after voiding. Call your doctor if you gain more than 3 lb in 2 days or 5 lb in 1 week. Dose Instruction: TAKE 1 TABLET BY MOUTH EVERY MORNING Rx Instructions: TAKE 1 TABLET BY MOUTH EVERY MORNING losartan 25 mg tablet See Rx Instructions .ROUTE .COMPLEX Qty: 90 2RF Hold Instructions: Resume on 07/06/24. Holding losartan due to renal functi on. Please discuss with your PCP if needs to be continued Dose Instruction: TAKE 1 TABLET BY MOUTH DAILY Rx Instructions: TAKE 1 TABLET BY MOUTH DAILY Discontinued trimethoprim 100 mg tablet 100 mg PO DAILY Other Ambulatory Orders: Comprehensive Metabolic Panel (Routine) Timeframe: 1 Week Location: Determined by Patient Ordered By: Armin Chiu Date of admission: 05/30/24 09:14 Primary Care Provider: Evangelista Carlson Admitting Provider: Taylor Schwarz Attending physician on admission: Taylor Schwarz Condition: Stable
== END 2024-06-02 18:28 | disposition home health service (06) | DRG 689 ==
LOC: ANHED 19:41 → ANHIMU 22:02
PROVIDERS: Admitting Provider Internal Medicine; Emergency Provider Emergency Medicine; PCP Emergency Medicine; Visit Provider General Practice
DX: N39.0 Urinary tract infection, site not specified (principal); G93.41 Metabolic encephalopathy; N17.9 Acute kidney failure, unspecified; J81.1 Chronic pulmonary edema; B96.89 Other specified bacterial agents as the cause of diseases classified elsewhere; R00.0 Tachycardia, unspecified; E86.0 Dehydration; I10 Essential (primary) hypertension; R55 Syncope and collapse; G25.81 Restless legs syndrome; K21.9 Gastro-esophageal reflux disease without esophagitis; J45.30 Mild persistent asthma, uncomplicated; Z20.822 Contact with and (suspected) exposure to COVID-19; K76.1 Chronic passive congestion of liver; W19.XXXA Unspecified fall, initial encounter; Z90.49 Acquired absence of other specified parts of digestive tract; Z87.891 Personal history of nicotine dependence
CPT/HCPCS: 36415; 36569; 70450; 70551; 71045; 71250; 71275; 76705; 80053; 80074; 81001; 82140; 82248; 82607; 82746; 83605; 83735; 83880; 84443; 84484; 85025; 85027; 87086; 87186; 87637; 93005; 93880; 94640; 96361; 96365; 96375; 97161; 97165; 97530; 97535; 99285; A9270; C1751; C8929; G0378; J0692; J0696; J1650; J2003; J2470; J7030; J7120; Q9957; Q9967

== ENCOUNTER 2024-06-18 01:25 | Inpatient (IN) | payer MEDICARE, SELFPAY ==
[2024-06-18] VITALS (22 sets, daily range): BP systolic 108–135; BP diastolic 58–94; PULSE 104–123; RESP 13–22; TEMP 36.6–37.1; O2SAT 92–100; BMI 23.5
--- NOTE | ~2024-06-18 | XR_ITS ---
EXAM/PROCEDURE: XR chest 1V portable - 06/18/2024 01:35 CDT HISTORY: 84 years old Female with chest pain TECHNIQUE: Two view(s) of the chest. COMPARISON: None available. FINDINGS/ IMPRESSION: Small left pleural effusion causing compressive atelectasis. Airspace opacity in the right lung base with small left-sided pleural effusion. Findings may represent pneumonia in appropriate clinical sett ings. Short interval follow-up chest radiograph is recommended after appropriate clinical therapy. No pneumothorax. No large consolidation. Atherosclerotic aspirations are seen in the aorta. Cardiomed iastinal silhouette is grossly unremarkable. Degenerative changes are seen in the bones. Reviewed, dictated and finalized at location A.
--- NOTE | ~2024-06-18 | CT_ITS ---
EXAM: CTA chest PE abdomen pel - 06/18/2024 02:04 CDT HISTORY: 84 years old Female with Chest pain, shortness of breath, recent hospitaliz TECHNIQUE: Multidetector CT of the chest, abdomen and pelvis was performed with intravenous contrast Coronal and sagittal reformats were also provided for review. Automatic exposure control was used for this study. CONTRAST: 100 cc of Optiray 350 was used for this study COMPARISON: None available FINDINGS: CHEST: Evaluation is limited secondary to artifact caused by the patient's motion. VISUALIZED LOWER NECK: Thyroid gland appears normal. No supraclavicular lymphadenopathy. AIRWAYS: Patent centrally. LUNGS and PLEURA: Dependent bronchiectasis with dependent airspace disease in the lungs may be relate d to sequela of chronic infection/aspiration changes. Moderate bilateral pleural effusions. MEDIASTINUM and JONAS: No evidence of mediastinal hematoma. No lymphadenopathy. HEART AND PERICARDIUM: Cardiomegaly. Pericardial effusion measuring up to 1 cm in thickness. Coronary artery coruscations. CHEST WALL: No axillary lymphadenopathy. Chest wall appears normal. VASCULATURE: Thoracic aorta and pulmonary arteries are normal in caliber. Within the limitations of t he examination, no pulmonary embolism seen in the main arteries or lobar pulmonary arteries. ABDOMEN and PELVIS: LIVER: Within normal limits. GALLBLADDER: Postcholecystectomy. BILE DUCTS: Normal caliber. SPLEEN: Within normal limits. PANCREAS: Within normal limits. ADRENAL GLANDS: Within normal limits. KIDNEYS and URETERS: No hydronephrosis or hydroureter. No evidence for nephroureterolithiasis. Simple cyst in the left kidney. URINARY BLADDER: Within normal limits. STOMACH and BOWEL: No abnormal bowel wall thickening. No obstruction. Colonic diverticulosis, without diverticulitis. REPRODUCTIVE ORGANS: Within normal limits. MESENTERY/PERITONEAL CAVITY: No free fluid or pneumoperitoneum. LYMPH NODES: No abdominal or pelvic lymphadenopathy. ABDOMINAL WALL: Within normal limits. VASCULATURE: Within normal limits. MUSCULOSKELETAL, THORACIC AND LUMBAR SPINE: Multilevel degenerative changes of the spine. IMPRESSION: 1. Limited evaluation. Within the limitations of the examination, no pulmonary embolism seen. 2. Moderate bilateral pleural effusions with cardiomegaly and dependent airspace disease. Findings m ay represent mild CHF. Superimposed infection cannot be excluded. Clinical correlation is monitored. 3. No evidence of acute pathology in abdomen and pelvis. 4. Colonic diverticulosis. Reviewed, dictated and finalized at location A. IMPRESSION: 1. Limited evaluation. Within the limitations of the examination, no pulmonary embolism seen. 2. Moderate bilateral pleural effusions with cardiomegaly and dependent airspa ce disease. Findings may represent mild CHF. Superimposed infection cannot be e xcluded. Clinical correlation is monitored. 3. No evidence of acute pathology in abdomen and pelvis. 4. Colonic diverticulosis.
--- NOTE | 2024-06-18 01:29 | ECG_ITS ---
Test Date: 2024-06-18 01:31:25 Measurements Intervals [place] Rate: 117 P: 75 HI: 167 QRS: 256 QRSD: 127 T: 30 QT: 323 QTc: 451 Interpretive Statements SINUS TACHYCARDIA RIGHT AXIS DEVIATION RIGHT BUNDLE BRANCH BLOCK INFERIOR INFARCT, AGE INDETERMINATE BASELINE ARTIFACT- I, II, III, AVR, AVL, AVF, V2-V3 ABNORMAL ECG Compared to ECG 05/31/2024 11:20:27 HEART RATE HAS INCREASED Electronically Signed On 06-18-2024 06:45:05 CDT by Armond Castaneda D.O.
[2024-06-18 01:39] LABS: Basophils Percent Auto 0.5 % (0.2-1.2); Eosinophils Absolute Auto 0.1 K/mm3 (0-0.3); Eosinophils Percent Auto 1.3 % (0-4.4); Hematocrit 38.6 % (37.0-47.0); Hemoglobin 12.9 g/dL (12.0-15.0); Immature Granulocyte Absolute 0.05 K/mm3 (0.00-0.031); Immature Granulocyte Percent A 0.6 % (0-0.5); Lymphocytes Absolute Auto 1.03 K/mm3 (0.9-3.2); Lymphocytes Percent Auto 12.6 % (18.3-44.2); Mean Corpuscular HGB Conc 33.4 g/dl (32-36); Mean Corpuscular Hemoglobin 31.4 pg (26-34); Mean Corpuscular Volume 93.9 fl (80-100); Mean Platelet Volume 9.5 fl (7.4-10.4); Monocytes Percent Auto 12.3 % (2.6-8.5); Neutrophils Absolute Auto 5.9 K/mm3 (1.3-6.7); Neutrophils Percent Auto 72.7 % (45.5-73.1); Platelet Count Result 335 k/mm3 (150-375); Red Blood Count 4.11 M/mm3 (4.2-5.4); White Blood Count 8.2 K/mm3 (4.5-10.0)
[2024-06-18 01:49] LABS: Alanine Aminotransferase 30 U/L (6-35); Albumin Level 3.6 g/dL (3.5-5.1); Alkaline Phosphatase 193 U/L (38-126); Anion Gap 11 mmol/L (4-12); Aspartate Amino Transferase 32 U/L (14-36); Bilirubin,Total 0.7 mg/dL (0.2-1.3); Blood Urea Nitrogen 12 mg/dL (7-17); Calcium 8.7 mg/dL (8.4-10.2); Carbon Dioxide 28 mmol/L (22-30); Chloride 98 mmol/L (98-107); Estimated CRCL calculation 34 ml/min; Estimated Glomerular Filt Rate 56; Glucose 101 mg/dL (65-110); Lipase 67 U/L (23-300); Potassium 3.7 mmol/L (3.4-5.0); Sodium 137 mmol/L (137-145)
[2024-06-18 01:53] LABS: INR 1.2; Prothrombin Time 15.3 Seconds (11.1-14.7)
[2024-06-18 01:54] LABS: Partial Thromboplastin Time 36.1 Seconds (22.3-36.8)
--- OUTSIDE RECORDS SUMMARY | 2024-06-18 02:00 | XMS_ITS | Encounter Summary ---
Author Organization [facility] Address 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
--- OUTSIDE RECORDS SUMMARY | 2024-06-18 02:00 | XMS_ITS | Encounter Summary ---
Author Organization [facility] Address [address] [place] [address] Care Team Providers Care Toll Mechanic Name Role Phone Unavailable Primary Care Provider [...] on file Legal Sex Female 4:46 AM BOW MAKER GIFT WRAPPING Gender Identity Not on file Sexual Orientation Not on file documented as of this encounter Plan of Treatment Not on file documented as of this encounter Visit Diagnoses Not on filedocumented in this encounter
--- OUTSIDE RECORDS SUMMARY | 2024-06-18 02:00 | XMS_ITS | Clinical Summary ---
Author Organization [facility] [place] Address [address] [place] [address] Care Team Providers Care Shell Molding Roller Blast Operator Name Role Phone Evangelista Carlson MD Primary Care Provide r Berny Vazquez MD Unavailable [phone] Allergies Active Allergy Reactions Criticality Noted Date [...] parkinsonism. 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 Assessment & Plan (01/14/2021 12:22 PM ASPHALT PLANT WORKER): She had stage 3 parkinsonism characterized by [...] reevaluate her in 6 months with our Wrecker Driver and repeat a video at that time. [...] on file Legal Sex Female 1:49 AM ASPHALT PLANT WORKER Gender Identity Female 07/15/2021 8:28 PM CDT [...] Payer ( fective 2003-Present) Name:Lisa Tovar Member ID:[id number] Relation to Subscriber:Self Name:Lisa Tovar Subscriber ID:[id number] Payer ID:[id number] Group ID:Not on file Type:MEDICARE TRADITIONAL Address: [place] [id number] [facility] MEDICARE [facility] Care Teams Shell Molding Roller Blast Operator Relationship Specialty Start Date End Date Evangelista Carlson MD [address] [place] [address] PCP - General Emergency Medicine 07/26/20 Berny Vazquez MD [facility] [place] [address] Referring Physician Allergy and Immunology 01/11/21
--- OUTSIDE RECORDS SUMMARY | 2024-06-18 02:00 | XMS_ITS | Referral Summary ---
Author Organization [facility] [place] Address [address] [place] [address] Care Team Providers Care Manager Pmo Name Role Phone Evangelista Carlson MD Primary Care Provide r Berny Vazquez MD Unavailable [phone] Allergies Active Allergy Reactions Criticality Noted Date [...] parkinsonism. Assessment & Plan (03/31/2022 11:14 AM REPAIR WEAVER): She had stage 3 parkinsonism characterized by [...] depression. Assessment & Plan (01/14/2021 12:22 PM REPAIR WEAVER): She had stage 3 parkinsonism characterized by [...] reevaluate her in 6 months with our Cardiac Cath Lab Manager and repeat a video at that time. [...] on file Legal Sex Female 1:49 AM REPAIR WEAVER Gender Identity Female 07/15/2021 8:28 PM CDT [...] Treatment Not on file Insurance MEDICARE MEDICARE [facility] [place] [address] MEDICARE [facility] Care Teams Manager Pmo Relationship Specialty Start Date End Date Evangelista Carlson MD [address] [place] [address] PCP - General Emergency Medicine 07/26/20 Berny Vazquez MD [address] [place] [address] Referring Physician Allergy and Immunology 01/11/21
--- OUTSIDE RECORDS SUMMARY | 2024-06-18 02:00 | XMS_ITS | Encounter Summary ---
Author Organization [facility] Address 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
--- OUTSIDE RECORDS SUMMARY | 2024-06-18 02:00 | XMS_ITS | Continuity of Care Document ---
Author Organization [facility] Address [address] [place] [address] Phone Care Team Providers Care Household Worker Name Role Phone Chet Murray Unavailable Unavailable [...] Copied on Encounter Office/outpat ient Visit, [facility], [address], [place], [place], [id number], [place] tel:[phone] SEC [facility] No Information 0 Trevor Rosenberg. [address] , [address], [place], [address], [place]. tel:[phone] [facility], [address], [place], [place], [id number], [place] tel:[phone] [facility] No Information [address] [employer] . [address], [address], [place], [place], [address], [place]. tel:[phone] Referring Provider: Chet Smith, [address], [place], [address]. tel:[phone] esquivel Provider: Chrissy Huffman, [address], [place], [address]. tel:[phone] [address] [facility], [address], [place], [place], [id number], tel:[phone] SEC [facility] No Information 7-200 9 Doimiriam Rosenberg. [address] , [address], [place], [place], [facility], . tel:[phone] [facility], [address], [place], [place], [id number], tel:[phone] SEC [facility] No Information 3-200 8 Trevor Rosenberg. [facility] , [address], [place], [place], [facility], . tel:[phone] [facility], [id number] [place] [address] [address], [place], [place], [id number], tel:[phone] SEC [facility] No Information 0 8-200 7 Trevor Rosenberg. [facility] , [address], [place], [place], [facility], . tel:[phone] Family History Family Member Type Diagnosis Age At Onset No Information Payers Payer name Insurance type Covered constitution party ID Authoriza tion(s) [place] [id number] [place] [id number] Social History Type Description Quantity Date Captured [...]
--- OUTSIDE RECORDS SUMMARY | 2024-06-18 02:00 | XMS_ITS | Encounter Summary ---
Author Organization [facility] Address 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
--- OUTSIDE RECORDS SUMMARY | 2024-06-18 02:00 | XMS_ITS | Clinical Summary ---
Author Organization [facility] Address [address] Attn: Epic Prelude ADT TATY ANGEL [address] Care Team Providers Care Staff Nuclear Weapons Officer Name Role Phone Unavailable Primary Care Provider Unavailabl e Social History Tobacco Use Types Packs/Day Years Used Date Smoking Tobacco: Never Assessed Comments Unknown Sex and Gender Information Value Date Recorded Sex Assigned at Not on file Legal Sex Female 4:46 AM HEALTH CARE COORDINATOR Gender Identity Not on file Sexual [...]
--- OUTSIDE RECORDS SUMMARY | 2024-06-18 02:00 | XMS_ITS | Clinical Summary ---
Author Organization [facility] Address [address] [place] [address] Care Team Providers Care Muffle Operator Name Role Phone Unavailable Primary Care [...] - 1-dose 75+ series) 2013 COVID-19 Vaccine ( - 2023-2 5 season) 2023 Meningococcal B Vaccine Aged Out No l onger eligible based on patient's age to complete this topic Meningococcal Vaccine Aged Out No hector lesli eligible based on patient's age to complete this topic RSV Immunizations Under 20 Months Aged Out No longer eligible based on patient's age to complete this topic
[2024-06-18] MEDS: MORPHINE SULFATE (*CRX) 4 MG/ML INJ 2 MG IV PUSH (02:17)
[2024-06-18 02:23] LABS: NT Pro B Type Natriuretic Pept 16700 pg/mL (19.9-100)
--- NOTE | 2024-06-18 02:51 | ED_ITS ---
HPI - General Adult General Chief complaint: Chest Pain Stated complaint: Chest pain x 2D Time Seen by Provider: 06/18/24 01:45 History of Present Illness HPI narrative: Patient is a 84-year-old female who presents emergency department with chief complaint of chest pain. Patient reports that she has been having discomfort in her chest for the last 5 days reports that she was recently admitted to the hospital with UTI and tachycardia patient was discharged home on metoprolol and reports that her primary doctor discontinued the metoprolol and started her back on a diuretic. The patient reports that the pain in her chest sharp reports it is worse with inspiration and worse with movement. Related Data Home Medications ?Medication ?Instructions ?Recorded ?Confirmed ?Last Taken ?Type biotin 500 mcg capsule 500 mcg PO DAILY 04/07/23 05/31/24 3 Days Ago History ~07/12/23 cholecalciferol (vitamin D3) 125 125 mcg PO DAILY 04/07/23 05/29/24 3 Days Ago History mcg (5,000 unit) tablet (Vitamin ~07/12/23 D3) vit C 226 mg-vit E 90 mg-copper 1 cap PO BID 04/07/23 05/29/24 3 Days Ago History 0.8 mg-zinc oxide-lutein 5 mg ~07/12/23 capsule (PreserVision Lutein) gabapentin 300 mg capsule 300 mg PO .COMPLEX 06/08/23 05/29/24 07/15/23 History heryjzly-lzgo-[id number] 8 mg-folic 400 1 tablet PO DAILY 07/10/23 05/29/24 3 Days Ago History mcg-K 50 mcg-lutein 300 mcg tablet ~07/12/23 (Centrum Silver Women) propylene glycol 0.6 % eye drops 1 drp EACH EYE DAILY PRN dry eye(s) 05/11/24 05/31/24 Unknown History (Systane Complete) donepezil 10 mg tablet 10 mg PO DAILY 05/29/24 05/29/24 Unknown History Allergies Allergy/AdvReac Type Severity Reaction Status Date / Time propoxyphene (From Darvon) Allergy Severe Swelling Verified 06/06/24 09:31 of Lip/Tongue/Throat donepezil (From Aricept) AdvReac Intermediate Abdominal Verified 06/06/24 09:31 Pain Review of Systems 2 Review of Systems: A 10 system review of systems was completed on the patient and is negative except for what is stated in the HPI. Nursing and ancillary documentation was reviewed. [facility] Past Medical History Medical History Dermatitis Irritant contact dermatitis Self-catheterizes urinary bladder Left inguinal hernia Encounter for other specified surgical aftercare Incarcerated right inguinal hernia Partial small bowel obstruction Right inguinal hernia Lipoma of colon Hx of adenomatous colonic polyps Restless legs syndrome Acute blood loss anemia Hyponatremia Pneumoperitoneum Spleen laceration Constipation Bloating Belching symptom Diverticulosis Frequent UTI Memory loss Mild persistent asthma without complication Presbycusis, bilateral Pure hypercholesterolemia Unsteady gait Vitamin D deficiency Insomnia Anxiety Hypertension Asthma GERD (gastroesophageal reflux disease) Depression Surgical History Surgical History History of colonoscopy , complicated by splenic & injury per patient H/O inguinal hernia repair Robotic laparoscopic repair incarcerated right inguinal hernia, robotic laparoscopic repair left inguinal hernia, both repairs with mesh on 07/14 History of tubal ligation History of cholecystectomy Family History Family History Father Family history of transient ischemic attacks Patient's father is Cerebrovascular accident, Onset Age: 77 Sibling Family history of chronic obstructive pulmonary disease Family history of lung cancer Patient's brother is Mother Family history of transient ischemic attacks, Onset Age: 91 Other Family history of schizophrenia Social History Social History Social History: Surrogate medical decision maker: Che Field or Steffany Leeann, daughters. Code status: Full code. Caffeine-none Smoking packs per day: 2 Smoking cigarettes per day: 40.0 Years smoked: 2 Smoking pack-years: 4.00 Smoking status: Former smoker Tobacco type: cigarettes Second hand tobacco smoke exposure: No Smoking end date: 03/09/87 Alcohol intake: never Substance use: never Substance use type: does not use Do You Feel Safe in your Home?: Yes Lack of Transportation: No Lack of Food: Never True Current Housing: I Have Housing Concerned About Future Housing: No Difficulty Paying Gas/Electric Bills: No Difficulty Paying for Meds: No Currently Unemployed: No Education: Master's Degree or Higher Difficulty w/ Childcare or Family Care: No Living arrangements: alone Spiritual care concerns: No Agree to blood products: Yes Exam 2 Narrative: GENERAL: Well-appearing, well-nourished, and in no acute distress. HEAD: Normocephalic, atraumatic. EYES: PERRLA and EOMI. ENT: Nares clear, no rhinorrhea or epistaxis. Mucous membranes moist. NECK: Supple. CHEST: Clear to auscultation. No respiratory distress. Chest wall is tender to palpation on the right sternal border HEART: Regular rate and rhythm. No murmur heard. Normal peripheral pulses. ABDOMEN: Soft, nontender, nondistended, normal active bowel sounds. EXTREMITIES: Normal range of motion. No edema. SKIN: Warm, dry, no rash. NEURO: No focal deficits. Alert and oriented x3. PSYCH: Normal mood and affect. Course Vital Signs Vital signs: Vital Signs Temperature 37.1 C 06/18/24 01:25 Pulse Rate 123 H 06/18/24 01:25 Respiratory Rate 16 06/18/24 01:25 Blood Pressure 112/74 06/18/24 01:25 Pulse Oximetry 98 06/18/24 01:25 Oxygen Delivery Room Air 06/18/24 01:25 Temperature 37.1 C 06/18/24 01:25 Pulse Rate 111 H 06/18/24 05:54 Respiratory Rate 18 06/18/24 05:54 Blood Pressure 123/71 06/18/24 05:54 Pulse Oximetry 94 06/18/24 05:54 Oxygen Delivery Room Air 06/18/24 01:30 Medical Decision Making [facility] Narrative Medical decision making narrative: Differential diagnosis includes pleural effusions, pericardial effusion, CHF, pneumonia, pulmonary embolism, ACS EKG showed sinus tachycardia but no evidence of acute ST elevation BNP was 16,700 Troponin was 0 hour 3 hour CTA chest showed evidence of pleural effusions and a small pericardial effusion. Urinalysis shows evidence of UTI with 21-50 white blood cells Case was discussed with hospitalist for admission Vital Signs Vital Signs: Vital Signs Temperature 37.1 C 06/18/24 01:25 Pulse Rate 123 H 06/18/24 01:25 Respiratory Rate 16 06/18/24 01:25 Blood Pressure 112/74 06/18/24 01:25 Pulse Oximetry 98 06/18/24 01:25 Oxygen Delivery Room Air 06/18/24 01:25 Temperature 37.1 C 06/18/24 01:25 Pulse Rate 111 H 06/18/24 05:54 Respiratory Rate 18 06/18/24 05:54 Blood Pressure 123/71 06/18/24 05:54 Pulse Oximetry 94 06/18/24 05:54 Oxygen Delivery Room Air 06/18/24 01:30 Lab Data 06/18/24 01:35 06/18/24 01:35 Labs: Lab Results 06/18/24 06/18/24 06/18/24 Range/Units 01:35 04:13 04:33 WBC 8.2 (4.5-10.0) K/mm3 RBC 4.11 L (4.2-5.4) M/mm3 Hgb 12.9 (12.0-15.0) g/dL Hct 38.6 (37.0-47.0) % MCV 93.9 (80-100) fl MCH 31.4 (26-34) pg MCHC 33.4 (32-36) g/dl RDW 14.0 (11.5-14.5) % Plt Count 335 (150-375) k/mm3 MPV 9.5 (7.4-10.4) fl Immature Gran % (Auto) 0.6 H (0-0.5) % Neut % (Auto) 72.7 (45.5-73.1) % Lymph % (Auto) 12.6 L (18.3-44.2) % Barren % (Auto) 12.3 H (2.6-8.5) % Eos % (Auto) 1.3 (0-4.4) % Baso % (Auto) 0.5 (0.2-1.2) % Lymph # (Auto) 1.03 (0.9-3.2) K/mm3 Barren # (Auto) 1.0 H (0.1-0.6) K/mm3 Eos # (Auto) 0.1 (0-0.3) K/mm3 Baso # (Auto) 0.0 (0.0-0.1) K/mm3 Abs Immat Gran (auto) 0.05 H (0.00-0.031) K/mm3 Absolute Neuts (auto) 5.9 (1.3-6.7) K/mm3 Absolute Nucleated RBC 0.000 (0.0-0.012) K/mm3 Nucleated RBC % 0.0 (0.0-0.2) % PT 15.3 H (11.1-14.7) Seconds INR 1.2 APTT 36.1 (22.3-36.8) Seconds Sodium 137 (137-145) mmol/L Potassium 3.7 (3.4-5.0) mmol/L Chloride 98 (98-107) mmol/L Carbon Dioxide 28 (22-30) mmol/L Anion Gap 11 (4-12) mmol/L BUN 12 D (7-17) mg/dL Creatinine 0.95 (0.7-1.0) mg/dL Estim Creat Clear Calc 34 ml/min Estimated GFR 56 L (59 - ) Glucose 101 (65-110) mg/dL Calcium 8.7 (8.4-10.2) mg/dL Total Bilirubin 0.7 (0.2-1.3) mg/dL AST 32 (14-36) U/L ALT 30 (6-35) U/L Alkaline Phosphatase 193 H (38-126) U/L Troponin I < 0.012 < 0.012 (0.000-0.034) ng/mL NT-Pro-B Natriuret Pep 25179 H (19.9-100) pg/mL Total Protein 7.0 (6.3-8.2) g/dL Albumin 3.6 (3.5-5.1) g/dL Lipase 67 (23-300) U/L Urine Color Yellow (Yellow) Urine Appearance Clear (Clear) Urine pH 7.0 (5.0-9.0) Ur Specific [place] > 1.045 H (1.001-1.035) Urine Protein Trace (Negative) mg/dL Urine Glucose (UA) Negative (Negative) mg/dL Urine Ketones Negative (Negative) mg/dL Ur Blood (Man) Negative (Negative) Urine Nitrate Negative (Negative) Urine Bilirubin Negative (Negative) Urine Urobilinogen 0.2 (<2.0) mg/dL Add Ur Microanalysis Reviewed Leukocyte Esterase Rfl 1+ H (Negative) RYLEE/UL Urine RBC 3-5 H (0-2) /hpf Urine WBC 21-50 H (0-3) /hpf Ur Squamous Epith Cells Few (Few) /hpf Urine Bacteria 4+ H /hpf Urine Casts 0-2 Discharge Plan Discharge Clinical Impression: Acute dyspnea, Acute UTI, Chest pain, Pleural effusion, Pericardial effusion Patient Disposition: Still a Patient Condition: Stable Patient Language: Khmer Prescriptions: No Action Systane Complete 0.6 % drops 1 drp EACH EYE DAILY PRN (Reason: dry eye(s)) Centrum Silver Women 8 mg iron-400 mcg-50 mcg Tablet 1 tablet PO DAILY biotin 500 mcg Capsule 500 mcg PO DAILY PreserVision Lutein 226-90-0.8-5 mg Capsule 1 cap PO BID cholecalciferol (vitamin D3) [Vitamin D3] 125 mcg (5,000 unit) Tablet 125 mcg PO DAILY gabapentin 300 mg capsule 300 mg PO .COMPLEX Rx Instructions: 300 mg orally in the AM, 2 in PM, and 1 HS; donepezil 10 mg tablet 10 mg PO DAILY cefepime 2 gram Recon Soln 2 g IV Q12H Qty: 10 3RF Rx Instructions: Patient needs to complete the course on 06/07 melatonin 5 mg Tablet 5 mg PO HS Qty: 30 0RF furosemide 40 mg tablet See Rx Instructions .ROUTE .COMPLEX Qty: 90 3RF Dose Instruction: TAKE 1 TABLET BY MOUTH EVERY MORNING Rx Instructions: TAKE 1 TABLET BY MOUTH EVERY MORNING losartan 25 mg tablet See Rx Instructions .ROUTE .COMPLEX Qty: 90 2RF Dose Instruction: TAKE 1 TABLET BY MOUTH DAILY Rx Instructions: TAKE 1 TABLET BY MOUTH DAILY memantine 10 mg tablet 10 mg PO DAILY Qty: 90 2RF lansoprazole 30 mg capsule,delayed release(DR/EC) See Rx Instructions .ROUTE .COMPLEX Qty: 90 2RF Dose Instruction: TAKE 1 CAPSULE BY MOUTH DAILY BEFORE A MEAL Rx Instructions: TAKE 1 CAPSULE BY MOUTH DAILY BEFORE A MEAL potassium chloride 20 mEq tablet,ER particles/crystals See Rx Instructions .ROUTE .COMPLEX Qty: 90 2RF Dose Instruction: TAKE 1 TABLET BY MOUTH DAILY Rx Instructions: TAKE 1 TABLET BY MOUTH DAILY trazodone 50 mg tablet See Rx Instructions .ROUTE .COMPLEX Qty: 90 2RF Dose Instruction: TAKE 1 TABLET BY MOUTH EVERY DAY AT BEDTIME NEEDED FOR SLEEP Rx Instructions: TAKE 1 TABLET BY MOUTH EVERY DAY AT BEDTIME NEEDED FOR SLEEP bupropion HCl 150 mg tablet sustained-release 12 hr See Rx Instructions .ROUTE .COMPLEX Qty: 90 2RF Dose Instruction: TAKE 1 TABLET BY MOUTH EVERY MORNING Rx Instructions: TAKE 1 TABLET BY MOUTH EVERY MORNING clonazepam 0.5 mg tablet 0.5 mg PO HS Qty: 30 2RF Follow-up/Referrals: Evangelista Carlson MD [Primary Care Provider] - Time of Disposition: 06:05
[2024-06-18 02:52] LABS: Troponin I < 0.012 ng/mL (0.000-0.034)
--- NOTE | 2024-06-18 04:05 | ECG_ITS ---
Test Date: 2024-06-18 04:13:24 Measurements Intervals [place] Rate: 109 P: 27 NH: 162 QRS: 269 QRSD: 146 T: 1 QT: 379 QTc: 512 Interpretive Statements SINUS TACHYCARDIA RIGHT AXIS DEVIATION RIGHT BUNDLE BRANCH BLOCK INFERIOR INFARCT, AGE INDETERMINATE BASELINE ARTIFACT- AVR ABNORMAL ECG Compared to ECG 06/18/2024 01:31:25 No significant changes Electronically Signed On 06-18-2024 06:47:25 CDT by Armond Castaneda D.O.
[2024-06-18 04:42] LABS: Troponin I < 0.012 ng/mL (0.000-0.034)
[2024-06-18 05:00] LABS: Add Urine Microscopic? YES; Appearance Urine Clear (Clear); Bacteria Urine 4+ /hpf; Bilirubin Urine Negative (Negative); Blood Urine Negative (Negative); Color Urine Yellow (Yellow); Glucose Urine UA Negative (Negative); Ketones Urine Negative (Negative); Leukocyte Esterase Ur 1+ LEU/UL (Negative); Need Manual Microscopic Reviewed; Nitrate Urine Negative (Negative); Non Pathogenic Casts 0-2; Protein Urine Trace mg/dL (Negative); Specific Grav Ur > 1.045 (1.001-1.035); Squamous Epithelial Cell Urine Few /hpf (Few); Urobilinogen Urine 0.2 mg/dL (<2.0); WBC Urine 21-50 /hpf (0-3)
[2024-06-18 06:53] LABS: Influenza A QL RT-PCR Negative (Negative); Influenza B QL RT-PCR Negative (Negative); RSV RNA, RT-PCR Negative (Negative); SARS-CoV-2 RNA PCR Negative (Negative)
--- NOTE | 2024-06-18 06:55 | ADMGEN ---
This patient, Lisa Tovar, was admitted to IMU Room 231-01. Patient/family oriented to hospital policies and general routines including ID bracelet, bed and alarms, visiting hours, pain management, procedures, bathroom and other care routines, personal items, smoking policy, room service/diet, and visiting hours. Information on how to activate the Rapid Response Team has been discussed. Patient/Family are encouraged to report perceived risks to care and to ask questions if they do not understand what they are told or what they should do.
--- NOTE | 2024-06-18 08:11 | P.HP_ITS ---
H&P: HPI History of Present Illness Date/Time: 06/18/24 08:11 Chief Complaint: Chest pain Narrative: Lisa Tovar is an 84-year-old female with a past medical history of HTN and asthma who presented to the ER with a chief complain of chest pain for the past 4 days. She reports that the chest pain started spontaneously and has progressed from minimal pain worsened with movement or exertion to pain that per sists constantly. She states it started becoming worse last night but was still lonly there with movement, coughing or leaning forward. She was recently seen in the hospital for a UTI and tachycardia and was ultimately discharged home on Metoprolol, but she states that her Primary Care Physician discontinued her Metoprolol.She has been trying to drink 3 bottles of water a day and noted 10 pound weight gain with edema of legs. She denies any shortness of breath, nausea, vomiting, abdominal pain, urinary or bowel complaints. Upon examination, patient's bladder does appear to be distended, as she self catheters at home. She denies any specific weakness, difficulty ambulating, headaches, dizziness, sick contacts, recent travel. Chest XR showed small L pleural effusion causing compressive atelectasis Airspace opacity in the right lung base with small left-sided pleural effusion. Findings may represent pneumonia in appropriate clinical settings, but No pneumothorax. No large consolidation. Atherosclerotic aspirations are seen in the aorta. Cardiomediastinal silhouette is grossly unremarkable. Chest/Abd/Pelvis CTA showed no pulmonary embolism. Moderate bilateral pleural effusions with cardiomegaly and dependent airspace disease. Findings may represent mild CHF. Superimposed infection cannot be excluded. Clinical correlation is monitored. No evidence of acute pathology in abdomen and pelvis. Initial Vital Signs: Temp 37.1C, 123 HR, 16 RR, 123/71 BP, 98% on RA. ED workup: WBC 8.2, RBC 4.11, Hgb 12.9, Hct 38.6, Plt count 335, PT 15.3, INR 1.2, APTT 36.1, Na 137, K 3.7, Cl 98, CO 28, BUN 12, Cr 0.95, eGFR 56, Glucose 101, Ca 8.7, AST 32, ALT 30, Alk Phos 193. Initial Troponin: <0.012, 1st repeat <0.012, 2nd repeat <0.012 BNP: 00472 UA: Trace urine protein, 1+ Leuk esterase, 3-5 RBC, 21-50 WBC, Few squamous Epith cells, 4+ urine bacteria EKG: Sinus tachycardia, RBBB, right axis deviation Review of Systems Review of Systems: All systems reviewed & are unremarkable except as noted in HPI and below PMFSH Past Medical History Medical History Dermatitis Irritant contact dermatitis Self-catheterizes urinary bladder Left inguinal hernia Encounter for other specified surgical aftercare Incarcerated right inguinal hernia Partial small bowel obstruction Right inguinal hernia Lipoma of colon Hx of adenomatous colonic polyps Restless legs syndrome Acute blood loss anemia Hyponatremia Pneumoperitoneum Spleen laceration Constipation Bloating Belching symptom Diverticulosis Frequent UTI Memory loss Mild persistent asthma without complication Presbycusis, bilateral Pure hypercholesterolemia Unsteady gait Vitamin D deficiency Insomnia Anxiety Hypertension Asthma GERD (gastroesophageal reflux disease) Depression Surgical History Surgical History History of colonoscopy , complicated by splenic & injury per patient H/O inguinal hernia repair Robotic laparoscopic repair incarcerated right inguinal hernia, robotic laparoscopic repair left inguinal hernia, both repairs with mesh on 07/14 History of tubal ligation History of cholecystectomy Family History Family History Father Family history of transient ischemic attacks Patient's father is Cerebrovascular accident, Onset Age: 77 Sibling Family history of chronic obstructive pulmonary disease Family history of lung cancer Patient's brother is Mother Family history of transient ischemic attacks, Onset Age: 91 Other Family history of schizophrenia Social History Social History Social History: Surrogate medical decision maker: Che Field or Steffany Leeann, daughters. Code status: Full code. Caffeine-none Smoking packs per day: 2 Smoking cigarettes per day: 40.0 Years smoked: 4 Smoking pack-years: 8.00 Smoking status: Former smoker Tobacco type: cigarettes Second hand tobacco smoke exposure: No Smoking end date: 03/09/87 Alcohol intake: never Substance use: never Substance use type: does not use Do You Feel Safe in your Home?: Yes Lack of Transportation: No Lack of Food: Never True Current Housing: I Have Housing Concerned About Future Housing: No Difficulty Paying Gas/Electric Bills: No Difficulty Paying for Meds: No Currently Unemployed: No Education: Master's Degree or Higher Difficulty w/ Childcare or Family Care: No Living arrangements: alone Spiritual care concerns: No Agree to blood products: Yes Meds Home Medications and Allergies Home Medications ?Medication ?Instructions ?Recorded ?Confirmed ?Type biotin 500 mcg capsule 500 mcg PO DAILY 04/07/23 06/18/24 History cholecalciferol (vitamin D3) 125 250 mcg PO DAILY 04/07/23 06/18/24 History mcg (5,000 unit) tablet (Vitamin D3) vit C 226 mg-vit E 90 mg-copper 1 cap PO BID 04/07/23 06/18/24 History 0.8 mg-zinc oxide-lutein 5 mg capsule (PreserVision Lutein) gabapentin 300 mg capsule 300 mg PO .COMPLEX 06/08/23 06/18/24 History mtmuknat-mlcp-nqbd 8 mg-folic 400 1 tablet PO DAILY 07/10/23 06/18/24 History mcg-K 50 mcg-lutein 300 mcg tablet (Centrum Silver Women) furosemide 40 mg tablet See Rx Instructions .Route 08/06/23 06/18/24 Rx .COMPLEX #90 tabs memantine 10 mg tablet 10 mg PO DAILY #90 tabs 02/15/24 06/18/24 Rx lansoprazole 30 mg capsule,delayed See Rx Instructions .Route 02/24/24 06/18/24 Rx release .COMPLEX #90 caps potassium chloride 20 mEq See Rx Instructions .Route 02/24/24 06/18/24 Rx tablet,extended release(part/cryst) .COMPLEX #90 tabs trazodone 50 mg tablet See Rx Instructions .Route 05/23/24 06/18/24 Rx .COMPLEX #90 tabs donepezil 10 mg tablet 10 mg PO DAILY 05/29/24 06/18/24 History clonazepam 0.5 mg tablet 0.5 mg PO HS #30 tabs 06/16/24 06/18/24 Rx bupropion HCl 150 mg tablet,12 hr 150 mg PO DAILY 06/18/24 06/18/24 History sustained-release metoprolol succinate 25 mg 25 mg PO DAILY 06/18/24 06/18/24 History tablet,extended release 24 hr terbinafine HCl 250 mg tablet 250 mg PO DAILY 06/18/24 06/18/24 History Allergies Allergy/AdvReac Type Severity Reaction Status Date / Time propoxyphene (From Darvon) Allergy Severe Swelling Verified 06/06/24 09:31 of Lip/Tongue/Throat donepezil (From Aricept) AdvReac Intermediate Abdominal Verified 06/06/24 09:31 Pain Vital Signs Vital Signs - 24 hr 06/18/24 01:25 06/18/24 01:30 06/18/24 01:30 Temperature 98.8 F Pulse Rate 123 H 121 H Respiratory Rate 16 Blood Pressure 112/74 Pulse Oximetry 98 98 Oxygen Delivery Room Air Room Air 06/18/24 01:30 06/18/24 01:32 06/18/24 02:02 Temperature Pulse Rate 123 H 120 H Respiratory Rate 16 21 H Blood Pressure 112/60 112/60 119/67 Pulse Oximetry 98 98 Oxygen Delivery 06/18/24 02:18 06/18/24 02:19 06/18/24 03:04 Temperature Pulse Rate 108 H 111 H 111 H Respiratory Rate 13 20 16 Blood Pressure 135/74 135/74 118/62 Pulse Oximetry 100 100 92 Oxygen Delivery 06/18/24 03:45 06/18/24 05:54 06/18/24 06:00 Temperature Pulse Rate 110 H 111 H 109 H Respiratory Rate 16 18 20 Blood Pressure 118/60 123/71 126/72 Pulse Oximetry 94 94 94 Oxygen Delivery Exam Narrative: Gen - well appearing female in no acute respiratory distress who is nontoxic- appearing lying semi recumbent in bed HEENT - normocephalic. Atraumatic. Pupils equal round and reactive. Extraocular motions intact. Sclera clear and anicteric. Nares patent. Oropharynx was clear. No oral lesions. Moist mucous membranes. Tongue was midline. Palate rosalba symmetrically. No facial asymmetry. Neck - neck was supple. No dominant adenopathy, thyromegaly or masses. 2+ carotid upstrokes without bruits. Chest - lungs are clear to auscultation bilaterally. No wheezes or crackles. CV - heart was regular rate and rhythm. S1-S2. No murmurs gallops or rubs. Abd - abdomen was soft. Nontender. Nondistended. Positive bowel sounds. No organomegaly or masses. Ext - no clubbing, cyanosis or edema. 2+ DP pulses bilaterally. Neuro - patient is alert and oriented x4. Strength is 5/5 in both upper and lower extremities. Cranial nerves 2-12 are intact. Speech is clear. Psych - normal mood and affect. Patient is pleasant and cooperative. Skin - warm and dry. No rashes noted. H&P: Results Labs Labs: Short CBC 06/18/24 Range/Units 01:35 WBC 8.2 (4.5-10.0) K/mm3 Hgb 12.9 (12.0-15.0) g/dL Hct 38.6 (37.0-47.0) % Plt Count 335 (150-375) k/mm3 BMP 06/18/24 01:35 Sodium 137 Potassium 3.7 Chloride 98 Carbon Dioxide 28 BUN 12 D Creatinine 0.95 Glucose 101 Calcium 8.7 Cardiac Enzymes 06/18/24 06/18/24 Range/Units 01:35 04:13 Troponin I < 0.012 < 0.012 (0.000-0.034) ng/mL Liver Function 06/18/24 Range/Units 01:35 Total Bilirubin 0.7 (0.2-1.3) mg/dL AST 32 (14-36) U/L ALT 30 (6-35) U/L Alkaline Phosphatase 193 H (38-126) U/L Albumin 3.6 (3.5-5.1) g/dL Urine 06/18/24 Range/Units 04:33 Urine Color Yellow (Yellow) Urine Appearance Clear (Clear) Urine pH 7.0 (5.0-9.0) Ur Specific [place] > 1.045 H (1.001-1.035) Urine Protein Trace (Negative) mg/dL Urine Glucose (UA) Negative (Negative) mg/dL Assessment and Plan Assessment and plan (1) CHF (congestive heart failure): Qualifiers: Heart failure type: diastolic Heart failure chronicity: acute on chronic Qualified Code(s): I50.33 - Acute on chronic diastolic (congestive) heart failure Code(s): I50.9 - Heart failure, unspecified Status: Acute Assessment and Plan: - Symptoms: Chest pain - Current medications: Lasix 40mg IV BID - Supportive treatment: Tyl and ibu prn - BNP: 95579 - EKG: Sinus tachycardia, RBBB, right axis deviation - Chest XR: small L pleural effusion causing compressive atelectasis - Echo: pending - Monitor vital signs, I&Os, BUN/creatinine, daily weights, neuro status and patient is a fall risk - Monitor serum electrolytes, Keep serum Potassium>4 and serum Magnesium>2 and CBC (2) Chest pain: Qualifiers: Chest pain type: unspecified Qualified Code(s): R07.9 - Chest pain, unspecified Code(s): R07.9 - Chest pain, unspecified Status: Acute Assessment and Plan: - Monitor vital signs, I&Os, chest pain, shortness of breath and patient is a fall risk - Monitor PTT, serial troponins, Serum electrolytes, and cbc - Monitor for bloody bowel movements,chest pain,SOB or dizziness/lightheadedness - Cardiology consulted, appreciate assistance and recommendations - Serial Troponin and EKG negative - Possibly attributed to Diastolic HF - IV Toradol once given (3) Pericardial effusion: Code(s): I31.39 - Other pericardial effusion (noninflammatory) Status: Acute Assessment and Plan: - Chest/Abd/Pelvis CTA: Pericardial effusion measuring up to 1 cm in thickness - Echocardiogram pending - Cardiology following (4) Tachycardia: Code(s): R00.0 - Tachycardia, unspecified Status: Acute Assessment and Plan: - Continue Metoprolol 25 XR (5) Acute UTI: Code(s): N39.0 - Urinary tract infection, site not specified Status: Acute Assessment and Plan: - UA: 1+ leuk esterase, 3-5 Urine RBC, 21-50 WBC, 4+ bacteria - UC obtained on 06/18 - previous micro reviewed - started on Rocephin Quality VTE Prophylaxis VTE prophylaxis: mechanical ordered Hospitalist [facility] Advance Care Plan I have confirmed that the patient's Advanced Care Plan is present, code status is documented, or surrogate decision maker is listed in patient medical record.: Yes Medication Reconciliation I have utilized all available resources to obtain, update and review the patients current medications (includes all prescriptions, OTC, herbals, cannabis, and nutritional supplements).: Yes
[2024-06-18 09:12] LABS: Troponin I < 0.012 ng/mL (0.000-0.034)
[2024-06-18] MEDS: FUROSEMIDE INJ 40 MG/4 ML VIAL IV PUSH ×2 (09:28→20:28)
--- NOTE | 2024-06-18 09:28 | ECG_ITS ---
Test Date: 2024-06-18 09:50:46 Measurements Intervals [place] Rate: 108 P: 57 [place]: 189 QRS: -88 QRSD: 127 T: -5 QT: 381 QTc: 512 Interpretive Statements SINUS TACHYCARDIA WITH FREQUENT SUPRAVENTRICULAR PREMATURE COMPLEXES RIGHT BUNDLE BRANCH BLOCK INFERIOR INFARCT, AGE INDETERMINATE BASELINE ARTIFACT- I, II, III, AVR, AVL, AVF, V1-V6 ABNORMAL ECG Compared to ECG 06/18/2024 04:13:24 FREQUENT SUPRAVENTRICULAR PREMATURE COMPLEXES NOW PRESENT Electronically Signed On 06-18-2024 10:05:51 CDT by Armond Castaneda D.O.
[2024-06-18 10:27] LABS: Magnesium 2.7 mg/dL (1.6-2.3)
--- NOTE | 2024-06-18 15:11 | PM.CNCAR ---
Assessment and Plan Assessment and plan (1) CHF (congestive heart failure): Code(s): I50.9 - Heart failure, unspecified Status: Acute Assessment and Plan: Acute on chronic diastolic heart failure. 05/30/24 Echo: EF 55-60%, diastolic dysfunction (E/e' 14), mild MR. On Lasix 40 mg IV BID. Limit fluid intake to 1.5 l/day. (2) Hypertension: Qualifiers: Hypertension type: essential hypertension Qualified Code(s): I10 - Essential (primary) hypertension Code(s): I10 - Essential (primary) hypertension Status: Acute Assessment and Plan: Stable. (3) Tachycardia: Code(s): R00.0 - Tachycardia, unspecified Status: Acute Assessment and Plan: On Metoprolol. (4) Chest pain: Code(s): R07.9 - Chest pain, unspecified Status: Acute Assessment and Plan: Probably due to diastolic heart failure. MT r/o by serial troponin and EKG. (5) Pericardial effusion: Code(s): I31.39 - Other pericardial effusion (noninflammatory) Status: Acute Assessment and Plan: 1 cm in thickness per CT chest. ER doctor ordered echo for 06/19/24 at 6 am, which is Thursday morning, so it won't be done until Thursday. History of Present Illness History of Present Illness Consult date/time: 06/18/24 15:11 Reason For Visit: Chest pain, dyspnea, pleural effusions, Narrative: 84 yr old woman presents to ER with chest pain. She has a history of dementia, hypertension. Daughter is at bedside. States she had chest pain with inspiration for last 2 days. She has been trying to drink 3 bottles of water a day and noted 10 pound weight gain with edema of legs. Therefore, PCP started her on Lasix and due to chest pain she came to ER. She was here a few weeks ago with UTI and dehydration. She does have to self-cath which she does 3 times a day for last 4 years. She is currently confused. Normally she lives alone and can walk a block. It was noted her HR was fast into 120 bpm in sinus tachycardia. Denies chest pain, orthopnea, PND, edema. Review of Systems Review of Systems: All systems reviewed & are unremarkable except as noted in HPI and below Constitutional: Constitutional: Reports as per HPI, Denies chills and Denies fever(s) Cardiovascular: Cardiovascular: Reports as per HPI, Reports chest pain, Denies irregular heart rhythm and Denies lightheadedness Respiratory: Respiratory: Reports as per HPI and Reports dyspnea Gastrointestinal: Gastrointestinal: Reports as per HPI and Denies abdominal pain Genitourinary: Genitourinary: Reports as per HPI and Denies dysuria Musculoskeletal: Musculoskeletal: Reports as per HPI Neurologic: Reports as per HPI, Denies dizziness and Denies syncope [facility] Past Medical History Medical History Dermatitis Irritant contact dermatitis Self-catheterizes urinary bladder Left inguinal hernia Encounter for other specified surgical aftercare Incarcerated right inguinal hernia Partial small bowel obstruction Right inguinal hernia Lipoma of colon Hx of adenomatous colonic polyps Restless legs syndrome Acute blood loss anemia Hyponatremia Pneumoperitoneum Spleen laceration Constipation Bloating Belching symptom Diverticulosis Frequent UTI Memory loss Mild persistent asthma without complication Presbycusis, bilateral Pure hypercholesterolemia Unsteady gait Vitamin D deficiency Insomnia Anxiety Hypertension Asthma GERD (gastroesophageal reflux disease) Depression Surgical History Surgical History History of colonoscopy , complicated by splenic & injury per patient H/O inguinal hernia repair Robotic laparoscopic repair incarcerated right inguinal hernia, robotic laparoscopic repair left inguinal hernia, both repairs with mesh on 07/14 History of tubal ligation History of cholecystectomy Family History Family History Father Family history of transient ischemic attacks Patient's father is Cerebrovascular accident, Onset Age: 77 Sibling Family history of chronic obstructive pulmonary disease Family history of lung cancer Patient's brother is Mother Family history of transient ischemic attacks, Onset Age: 91 Other Family history of schizophrenia Social History Social History Social History: Surrogate medical decision maker: Che Field or Steffany Jeffersonrosalind, daughters. Code status: Full code. Caffeine-none Smoking packs per day: 2 Smoking cigarettes per day: 40.0 Years smoked: 4 Smoking pack-years: 8.00 Smoking status: Former smoker Tobacco type: cigarettes Second hand tobacco smoke exposure: No Smoking end date: 03/09/87 Alcohol intake: never Substance use: never Substance use type: does not use Do You Feel Safe in your Home?: Yes Lack of Transportation: No Lack of Food: Never True Current Housing: I Have Housing Concerned About Future Housing: No Difficulty Paying Gas/Electric Bills: No Difficulty Paying for Meds: No Currently Unemployed: No Education: Master's Degree or Higher Difficulty w/ Childcare or Family Care: No Living arrangements: alone Spiritual care concerns: No Agree to blood products: Yes Meds Home Medications and Allergies Home Medications ?Medication ?Instructions ?Recorded ?Confirmed ?Type biotin 500 mcg capsule 500 mcg PO DAILY 04/07/23 06/18/24 History cholecalciferol (vitamin D3) 125 250 mcg PO DAILY 04/07/23 06/18/24 History mcg (5,000 unit) tablet (Vitamin D3) vit C 226 mg-vit E 90 mg-copper 1 cap PO BID 04/07/23 06/18/24 History 0.8 mg-zinc oxide-lutein 5 mg capsule (PreserVision Lutein) gabapentin 300 mg capsule 300 mg PO .COMPLEX 06/08/23 06/18/24 History onmusvoo-xqao-klec 8 mg-folic 400 1 tablet PO DAILY 07/10/23 06/18/24 History mcg-K 50 mcg-lutein 300 mcg tablet (Centrum Silver Women) furosemide 40 mg tablet See Rx Instructions .Route 08/06/23 06/18/24 Rx .COMPLEX #90 tabs memantine 10 mg tablet 10 mg PO DAILY #90 tabs 02/15/24 06/18/24 Rx lansoprazole 30 mg capsule,delayed See Rx Instructions .Route 02/24/24 06/18/24 Rx release .COMPLEX #90 caps potassium chloride 20 mEq See Rx Instructions .Route 02/24/24 06/18/24 Rx tablet,extended release(part/cryst) .COMPLEX #90 tabs trazodone 50 mg tablet See Rx Instructions .Route 05/23/24 06/18/24 Rx .COMPLEX #90 tabs donepezil 10 mg tablet 10 mg PO DAILY 05/29/24 06/18/24 History clonazepam 0.5 mg tablet 0.5 mg PO HS #30 tabs 06/16/24 06/18/24 Rx bupropion HCl 150 mg tablet,12 hr 150 mg PO DAILY 06/18/24 06/18/24 History sustained-release metoprolol succinate 25 mg 25 mg PO DAILY 06/18/24 06/18/24 History tablet,extended release 24 hr terbinafine HCl 250 mg tablet 250 mg PO DAILY 06/18/24 06/18/24 History Allergies Allergy/AdvReac Type Severity Reaction Status Date / Time propoxyphene (From Darvon) Allergy Severe Swelling Verified 06/06/24 09:31 of Lip/Tongue/Throat donepezil (From Aricept) AdvReac Intermediate Abdominal Verified 06/06/24 09:31 Pain Vital Signs Vital Signs - 24 hr 06/18/24 01:25 06/18/24 01:30 06/18/24 01:30 Temperature 98.8 F Pulse Rate 123 H 121 H Respiratory Rate 16 Blood Pressure 112/74 Pulse Oximetry 98 98 Oxygen Delivery Room Air Room Air 06/18/24 01:30 06/18/24 01:32 06/18/24 02:02 Temperature Pulse Rate 123 H 120 H Respiratory Rate 16 21 H Blood Pressure 112/60 112/60 119/67 Pulse Oximetry 98 98 Oxygen Delivery 06/18/24 02:18 06/18/24 02:19 06/18/24 03:04 Temperature Pulse Rate 108 H 111 H 111 H Respiratory Rate 13 20 16 Blood Pressure 135/74 135/74 118/62 Pulse Oximetry 100 100 92 Oxygen Delivery 06/18/24 03:45 06/18/24 05:54 06/18/24 06:00 Temperature Pulse Rate 110 H 111 H 109 H Respiratory Rate 16 18 20 Blood Pressure 118/60 123/71 126/72 Pulse Oximetry 94 94 94 Oxygen Delivery 06/18/24 06:58 06/18/24 08:00 06/18/24 08:00 Temperature 97.8 F 98.0 F Pulse Rate 108 H 108 H 114 H Respiratory Rate 18 18 Blood Pressure 131/94 H 132/67 Pulse Oximetry 98 97 Oxygen Delivery 06/18/24 08:00 06/18/24 10:00 06/18/24 12:00 Temperature 98.2 F Pulse Rate 113 H 106 H Respiratory Rate 22 H Blood Pressure 135/69 Pulse Oximetry 95 Oxygen Delivery Room Air 06/18/24 12:00 06/18/24 12:00 Temperature Pulse Rate 116 H Respiratory Rate Blood Pressure Pulse Oximetry Oxygen Delivery Room Air Exam Const: General: cooperative, healthy appearing and comfortable Resp: Auscultation: crackles, no rhonchi and no wheezes Cardio: Rate: tachycardic Rhythm: regular rhythm Heart sounds: no murmurs Peripheral pulses: dorsalis pedis present GI: GI Palp: No abdominal tenderness and Yes Soft to palpation Neuro: General: oriented to person, oriented to place and oriented to time Extrem: Right lower extremity: no edema Left lower extremity: no edema Results Labs and Meds 06/18/24 01:35 06/18/24 01:35 Lab results: Cardiac Enzymes 06/18/24 06/18/24 06/18/24 Range/Units 01:35 04:13 08:33 AST 32 (14-36) U/L Troponin I < 0.012 < 0.012 < 0.012 (0.000-0.034) ng/mL Coagulation 06/18/24 Range/Units 01:35 PT 15.3 H (11.1-14.7) Seconds APTT 36.1 (22.3-36.8) Seconds CBC 06/18/24 Range/Units 01:35 WBC 8.2 (4.5-10.0) K/mm3 RBC 4.11 L (4.2-5.4) M/mm3 Hgb 12.9 (12.0-15.0) g/dL Hct 38.6 (37.0-47.0) % Plt Count 335 (150-375) k/mm3 Lymph # (Auto) 1.03 (0.9-3.2) K/mm3 [place] # (Auto) 1.0 H (0.1-0.6) K/mm3 Eos # (Auto) 0.1 (0-0.3) K/mm3 Baso # (Auto) 0.0 (0.0-0.1) K/mm3 Comprehensive Metabolic Panel 06/18/24 Range/Units 01:35 Sodium 137 (137-145) mmol/L Potassium 3.7 (3.4-5.0) mmol/L Chloride 98 (98-107) mmol/L Carbon Dioxide 28 (22-30) mmol/L BUN 12 D (7-17) mg/dL Creatinine 0.95 (0.7-1.0) mg/dL Glucose 101 (65-110) mg/dL Calcium 8.7 (8.4-10.2) mg/dL AST 32 (14-36) U/L ALT 30 (6-35) U/L Alkaline Phosphatase 193 H (38-126) U/L Total Protein 7.0 (6.3-8.2) g/dL Albumin 3.6 (3.5-5.1) g/dL Intake and Output 06/17/24 06/18/24 06/18/24 23:59 07:59 15:59 Intake Total 50 120 Output Total 1700 Balance 50 -1580 Intake: IV 50 cefTRIAXone 1 GM/NS 50 ML 1 gm 50 In 50 ml @ 100 mls/hr IVPB ONCE STA Rx#:[id number] Oral 120 Output: Urine 600 Catheter Urine 1100 Urethral Catheter 1100 Patient Weight 06/18/24 23:59 Weight 64.1 kg
[2024-06-18] MEDS: KETOROLAC 30 MG/ML VIAL (*BKC) IV PUSH (16:36)
[2024-06-18] MEDS: POTASSIUM CHLORIDE 20 MEQ ER TABLET PO (16:37)
[2024-06-18] MEDS: METOPROLOL SUCCINATE EXT REL 25 MG TABCR PO (16:37)
[2024-06-18] MEDS: PANTOPRAZOLE 40 MG TABLET PO (16:37)
[2024-06-18] MEDS: buPROPion HCL SR (12 HR) 150 MG TAB PO (16:38)
[2024-06-18] MEDS: MEMANTINE 10 MG TABLET PO (16:38)
[2024-06-18] MEDS: GABAPENTIN 300 MG CAPSULE PO ×2 (17:59→20:27)
[2024-06-18] MEDS: clonazePAM (*CRX) 0.5 MG TABLET PO (20:27)
[2024-06-19] VITALS (14 sets, daily range): BP systolic 95–121; BP diastolic 51–63; PULSE 90–112; RESP 14–20; TEMP 36.3–37.1; O2SAT 93–98
--- NOTE | 2024-06-19 08:09 | PM.IMPN ---
Progress Note: A&P Assessment and Plan (1) CHF (congestive heart failure): Qualifiers: Heart failure chronicity: acute on chronic Heart failure type: diastolic Qualified Code(s): I50.33 - Acute on chronic diastolic (congestive) heart failure Code(s): I50.9 - Heart failure, unspecified Status: Acute Assessment and Plan: - Monitor vital signs, I&Os, BUN/creatinine, daily weights, neuro status and patient is a fall risk - Monitor serum electrolytes - Symptoms: Chest pain - Current medications: Lasix 40mg IV BID - Supportive treatment: Tyl and ibu prn - BNP: 42996 - EKG: Sinus tachycardia, RBBB, right axis deviation - Chest XR: small L pleural effusion causing compressive atelectasis - Echo: pending (2) Chest pain: Qualifiers: Chest pain type: unspecified Qualified Code(s): R07.9 - Chest pain, unspecified Code(s): R07.9 - Chest pain, unspecified Status: Acute Assessment and Plan: - Monitor vital signs, I&Os, chest pain, shortness of breath and patient is a fall risk - Monitor PTT, serial troponins, Serum electrolytes, and cbc - Cardiology consulted, appreciate assistance and recommendations - Serial Troponin and EKG negative - Possibly attributed to Diastolic HF - IV Toradol once given - Improving (3) Pericardial effusion: Code(s): I31.39 - Other pericardial effusion (noninflammatory) Status: Acute Assessment and Plan: - Chest/Abd/Pelvis CTA: Pericardial effusion measuring up to 1 cm in thickness - Echocardiogram pending - Cardiology following (4) Tachycardia: Code(s): R00.0 - Tachycardia, unspecified Status: Acute Assessment and Plan: - Continue Metoprolol 25 XR (5) Acute UTI: Code(s): N39.0 - Urinary tract infection, site not specified Status: Acute Assessment and Plan: - UA: 1+ leuk esterase, 3-5 Urine RBC, 21-50 WBC, 4+ bacteria - UC obtained on 06/18 - previous micro reviewed - started on Rocephin Time Spent With Patient Time: Subjective Date/time seen: 06/19/24 08:09 Interval history: Lisa Tovar is an 84-year-old female with a past medical history of HTN and asthma who presented to the ER with a chief complain of chest pain for the past 4 days. 06/19/2024 Patient is sitting comfortably at time of examination. At this time she denies any chest pain at rest, SOB, n/v, or abdominal pain. She still has chest pain with rotation of the chest or deep inspiration but reports that it has improved since yesterday. Echo still pending at this time. Holding lasix at this time for low bp and dark urine. Review of Systems Review of Systems: All systems reviewed & are unremarkable except as noted in HPI and below Exam Narrative: Gen - well appearing female in no acute respiratory distress who is nontoxic-appearing lying semi recumbent in bed HEENT - normocephalic. Atraumatic. Pupils equal round and reactive. Extraocular motions intact. Sclera clear and anicteric. Nares patent. Oropharynx was clear. No oral lesions. Moist mucous membranes. Tongue was midline. Palate rosalba symmetrically. No facial asymmetry. Neck - neck was supple. No dominant adenopathy, thyromegaly or masses. 2+ carotid upstrokes without bruits. Chest - lungs are clear to auscultation bilaterally. No wheezes or crackles. CV - heart was regular rate and rhythm. S1-S2. No murmurs gallops or rubs. Abd - abdomen was soft. Nontender. Nondistended. Positive bowel sounds. No organomegaly or masses. Ext - no clubbing, cyanosis or edema. 2+ DP pulses bilaterally. Neuro - patient is alert and oriented x4. Strength is 5/5 in both upper and lower extremities. Cranial nerves 2-12 are intact. Speech is clear. Psych - normal mood and affect. Patient is pleasant and cooperative. Skin - warm and dry. No rashes noted. Objective Data Vital Signs Vital Signs: Vital Signs - 24 hr 06/18/24 10:00 06/18/24 12:06/18/24 12:00 Temperature 98.2 F Pulse Rate 113 H 106 H 116 H Respiratory Rate 22 H Blood Pressure 135/69 Pulse Oximetry 95 Oxygen Delivery 06/18/24 12:00 06/18/24 14:00 06/18/24 15:32 Temperature 98.3 F Pulse Rate 117 H 117 H Respiratory Rate 18 Blood Pressure 126/67 Pulse Oximetry 97 Oxygen Delivery Room Air 06/18/24 16:00 06/18/24 16:00 06/18/24 16:37 Temperature Pulse Rate 117 H 118 H Respiratory Rate Blood Pressure Pulse Oximetry Oxygen Delivery Room Air 06/18/24 18:00 06/18/24 19:59 06/18/24 20:00 Temperature 98 F Pulse Rate 104 H 112 H 109 H Respiratory Rate 18 Blood Pressure 108/58 L Pulse Oximetry 95 Oxygen Delivery 06/18/24 22:00 06/19/24 00:00 06/19/24 00:00 Temperature 97.4 F L Pulse Rate 104 H 112 H Respiratory Rate 16 Blood Pressure 109/59 L Pulse Oximetry 94 Oxygen Delivery Room Air 06/19/24 00:00 06/19/24 01:54 06/19/24 04:00 Temperature 98.3 F Pulse Rate 109 H 108 H 110 H Respiratory Rate 18 Blood Pressure 113/53 L Pulse Oximetry 95 Oxygen Delivery 06/19/24 04:00 06/19/24 04:00 06/19/24 05:50 Temperature Pulse Rate 104 H 105 H Respiratory Rate Blood Pressure Pulse Oximetry Oxygen Delivery Room Air Intake/Output Intake/Output: Intake & Output 06/16/24 06/17/24 06/18/24 06/19/24 23:59 23:59 23:59 23:59 Intake Total 290 200 Output Total 1700 500 Balance -1410 -300 Meds/Results Medications: Active Medications Generic Name Dose Route Start Last Admin Trade Name Freq PRN Reason Stop Dose Admin Acetaminophen 650 mg 06/18/24 06:02 Acetaminophen 325 Mg Tablet PO Q4H PRN Mild Pain (1-3) or Fever Bupropion HCl 150 mg 06/18/24 14:50 06/18/24 16:38 Bupropion Hcl Sr (12 Hr) 150 Mg Tab PO 150 mg DAILY RASHMI Administration Clonazepam 0.5 mg 06/18/24 21:00 06/18/24 20:27 Clonazepam (*Crx) 0.5 Mg Tablet PO 0.5 mg HS RASHMI Administration Furosemide 40 mg 06/18/24 09:00 06/18/24 20:28 Furosemide Inj 40 Mg/4 Ml Vial IV PUSH 40 mg Q12HR RASHMI Administration Gabapentin 300 mg 06/18/24 21:00 06/18/24 20:27 Gabapentin 300 Mg Capsule PO 300 mg Q12HR RASHMI Administration Gabapentin 300 mg 06/18/24 18:00 06/18/24 17:59 Gabapentin 300 Mg Capsule PO 300 mg QPM RASHMI Administration Ceftriaxone Sodium 1 gm in 50 mls @ 100 mls/hr 06/19/24 06:00 06/19/24 06:03 Rocephin 1 Gm/Ns 50 Ml IVPB 100 mls/hr Q24H RASHMI Administration Memantine 10 mg 06/18/24 14:50 06/18/24 16:38 Memantine 10 Mg Tablet PO 10 mg DAILY RASHMI Administration Metoprolol Succinate 25 mg 06/18/24 14:50 06/18/24 16:37 Metoprolol Succinate Ext Rel 25 Mg Tabcr PO 25 mg DAILY RASHMI Administration Morphine Sulfate 2 mg 06/18/24 06:02 Morphine Sulfate (*Crx) 2 Mg/Ml Inj IV PUSH Q2H PRN Pain Rated 7-10 Ondansetron HCl 4 mg 06/18/24 06:02 Ondansetron Inj 4 Mg/2 Ml Vial IV PUSH Q4H PRN Nausea Pantoprazole Sodium 40 mg 06/18/24 14:50 06/18/24 16:37 Pantoprazole 40 Mg Tablet PO 40 mg QAM [facility] Administration Perflutren Lipid Microsphere 0 ml 06/18/24 06:02 Perflutren Lipid Microspheres 1.5 Ml Vial Diluted To 10 Ml Total Volume IV PUSH 06/21/24 06:03 ONCE PRN adequate visualization Protocol Potassium Chloride 20 meq 06/18/24 14:50 06/18/24 16:37 Potassium Chloride 20 Meq Er Tablet PO 20 meq DAILY [facility] Administration Trazodone HCl 50 mg 06/18/24 14:40 Trazodone Hcl 50 Mg Tablet BY MOUTH HS PRN Sleep Vitamin D 10,000 units 06/19/24 09:00 Cholecalciferol 5,000 Units Tablet PO DAILY [facility] Radiology Results: ITS Impressions Chest/Abdomen/Pelvis CTA 06/18/24 10:39 IMPRESSION: 1. Limited evaluation. Within the limitations of the examination, no pulmonary embolism seen. 2. Moderate bilateral pleural effusions with cardiomegaly and dependent airspace disease. Findings may represent mild CHF. Superimposed infection cannot be excluded. Clinical correlation is monitored. 3. No evidence of acute pathology in abdomen and pelvis. 4. Colonic diverticulosis. Labs Labs: Laboratory Results - last 24 hr 06/18/24 06/18/24 08:29 08:33 Magnesium 2.7 H Troponin I < 0.012 Quality VTE Prophylaxis VTE prophylaxis: mechanical ordered
--- NOTE | 2024-06-19 08:30 | PM.PNCARD ---
Progress Note: A&P Assessment and Plan (1) CHF (congestive heart failure): Qualifiers: Heart failure type: diastolic Heart failure chronicity: acute on chronic Qualified Code(s): I50.33 - Acute on chronic diastolic (congestive) heart failure Code(s): I50.9 - Heart failure, unspecified Status: Acute Assessment and Plan: Acute on chronic diastolic heart failure. 05/30/24 Echo: EF 55-60%, diastolic dysfunction (E/e' 14), mild MR. On Lasix 40 mg IV BID. Limit fluid intake to 1.5 l/day. Urine is becoming darker and had low normal BP in 90's SBP this morning. Hold Lasix. (2) Hypertension: Qualifiers: Hypertension type: essential hypertension Qualified Code(s): I10 - Essential (primary) hypertension Code(s): I10 - Essential (primary) hypertension Status: Acute Assessment and Plan: Low normal this morning. (3) Tachycardia: Code(s): R00.0 - Tachycardia, unspecified Status: Acute Assessment and Plan: On Metoprolol. (4) Chest pain: Qualifiers: Chest pain type: unspecified Qualified Code(s): R07.9 - Chest pain, unspecified Code(s): R07.9 - Chest pain, unspecified Status: Acute Assessment and Plan: Probably due to diastolic heart failure. [place] r/o by serial troponin and EKG. (5) Pericardial effusion: Code(s): I31.39 - Other pericardial effusion (noninflammatory) Status: Acute Assessment and Plan: 1 cm in thickness per CT chest. ER doctor ordered echo for 06/19/24 at 6 am, which is Thursday morning, so it won't be done until Thursday. Subjective Date/time seen: 06/19/24 08:30 Interval history: Reports breathing is better. Chest pain only with taking a deep breath. Exam Const: General: cooperative, healthy appearing and comfortable Orientation/consciousness: oriented to person, oriented to place and oriented to time Resp: Auscultation: clear to auscultation bilaterally, no crackles, no rales, no rhonchi and no wheezes Cardio: Rate: tachycardic Rhythm: regular rhythm Heart sounds: no murmurs Peripheral pulses: dorsalis pedis present Neuro: General: oriented to person, oriented to place and oriented to time Extrem: Right lower extremity: no edema Left lower extremity: no edema Objective Data Vital Signs Vital Signs: Vital Signs - 24 hr 06/18/24 10:00 06/18/24 12:00 06/18/24 12:00 Temperature 98.2 F Pulse Rate 113 H 106 H 116 H Respiratory Rate 22 H Blood Pressure 135/69 Pulse Oximetry 95 Oxygen Delivery 06/18/24 12:00 06/18/24 14:00 06/18/24 15:32 Temperature 98.3 F Pulse Rate 117 H 117 H Respiratory Rate 18 Blood Pressure 126/67 Pulse Oximetry 97 Oxygen Delivery Room Air 06/18/24 16:00 06/18/24 16:00 06/18/24 16:37 Temperature Pulse Rate 117 H 118 H Respiratory Rate Blood Pressure Pulse Oximetry Oxygen Delivery Room Air 06/18/24 18:00 06/18/24 19:59 06/18/24 20:00 Temperature 98 F Pulse Rate 104 H 112 H 109 H Respiratory Rate 18 Blood Pressure 108/58 L Pulse Oximetry 95 Oxygen Delivery 06/18/24 22:00 06/19/24 00:00 06/19/24 00:00 Temperature 97.4 F L Pulse Rate 104 H 112 H Respiratory Rate 16 Blood Pressure 109/59 L Pulse Oximetry 94 Oxygen Delivery Room Air 06/19/24 00:00 06/19/24 01:54 06/19/24 04:00 Temperature 98.3 F Pulse Rate 109 H 108 H 110 H Respiratory Rate 18 Blood Pressure 113/53 L Pulse Oximetry 95 Oxygen Delivery 06/19/24 04:00 06/19/24 04:00 06/19/24 05:50 Temperature Pulse Rate 104 H 105 H Respiratory Rate Blood Pressure Pulse Oximetry Oxygen Delivery Room Air 06/19/24 08:00 Temperature 97.6 F Pulse Rate 103 H Respiratory Rate 20 Blood Pressure 95/51 L Pulse Oximetry 98 Oxygen Delivery Intake/Output Intake/Output: Intake & Output 06/16/24 06/17/24 06/18/24 06/19/24 23:59 23:59 23:59 23:59 Intake Total 290 200 Output Total 1700 500 Balance -1410 -300 Meds/Results Medications: Active Medications Generic Name Dose Route Start Last Admin Trade Name Freq PRN Reason Stop Dose Admin Acetaminophen 650 mg 06/18/24 06:02 Acetaminophen 325 Mg Tablet PO Q4H PRN Mild Pain (1-3) or Fever Bupropion HCl 150 mg 06/18/24 14:50 06/18/24 16:38 Bupropion Hcl Sr (12 Hr) 150 Mg Tab PO 150 mg DAILY RASHMI Administration Clonazepam 0.5 mg 06/18/24 21:00 06/18/24 20:27 Clonazepam (*Crx) 0.5 Mg Tablet PO 0.5 mg HS RASHMI Administration Gabapentin 300 mg 06/18/24 21:00 06/18/24 20:27 Gabapentin 300 Mg Capsule PO 300 mg Q12HR RASHMI Administration Gabapentin 300 mg 06/18/24 18:00 06/18/24 17:59 Gabapentin 300 Mg Capsule PO 300 mg QPM RASHMI Administration Ceftriaxone Sodium 1 gm in 50 mls @ 100 mls/hr 06/19/24 06:00 06/19/24 06:03 Rocephin 1 Gm/Ns 50 Ml IVPB 100 mls/hr Q24H RASHMI Administration Memantine 10 mg 06/18/24 14:50 06/18/24 16:38 Memantine 10 Mg Tablet PO 10 mg DAILY RASHMI Administration Metoprolol Succinate 25 mg 06/18/24 14:50 06/18/24 16:37 Metoprolol Succinate Ext Rel 25 Mg Tabcr PO 25 mg DAILY RASHMI Administration Morphine Sulfate 2 mg 06/18/24 06:02 Morphine Sulfate (*Crx) 2 Mg/Ml Inj IV PUSH Q2H PRN Pain Rated 7-10 Ondansetron HCl 4 mg 06/18/24 06:02 Ondansetron Inj 4 Mg/2 Ml Vial IV PUSH Q4H PRN Nausea Pantoprazole Sodium 40 mg 06/18/24 14:50 06/18/24 16:37 Pantoprazole 40 Mg Tablet PO 40 mg QAM RASHMI Administration Perflutren Lipid Microsphere 0 ml 06/18/24 06:02 Perflutren Lipid Microspheres 1.5 Ml Vial Diluted To 10 Ml Total Volume IV PUSH 06/21/24 06:03 ONCE PRN adequate visualization Protocol Potassium Chloride 20 meq 06/18/24 14:50 06/18/24 16:37 Potassium Chloride 20 Meq Er Tablet PO 20 meq DAILY RASHMI Administration Trazodone HCl 50 mg 06/18/24 14:40 Trazodone Hcl 50 Mg Tablet BY MOUTH HS PRN Sleep Vitamin D 10,000 units 06/19/24 09:00 Cholecalciferol 5,000 Units Tablet PO DAILY RASHMI Radiology Results: ITS Impressions Chest/Abdomen/Pelvis CTA 06/18/24 10:39 IMPRESSION: 1. Limited evaluation. Within the limitations of the examination, no pulmonary embolism seen. 2. Moderate bilateral pleural effusions with cardiomegaly and dependent airspace disease. Findings may represent mild CHF. Superimposed infection cannot be excluded. Clinical correlation is monitored. 3. No evidence of acute pathology in abdomen and pelvis. 4. Colonic diverticulosis. Labs Labs: Laboratory Results - last 24 hr 06/18/24 06/18/24 08:29 08:33 Magnesium 2.7 H Troponin I < 0.012
[2024-06-19] MEDS: GABAPENTIN 300 MG CAPSULE PO ×3 (09:35→18:01)
[2024-06-19] MEDS: CHOLECALCIFEROL 5,000 UNITS TABLET 10000 UNITS PO (09:35)
[2024-06-19] MEDS: buPROPion HCL SR (12 HR) 150 MG TAB PO (11:53)
[2024-06-19] MEDS: MEMANTINE 10 MG TABLET PO (11:53)
[2024-06-19] MEDS: POTASSIUM CHLORIDE 20 MEQ ER TABLET PO (11:53)
[2024-06-19] MEDS: METOPROLOL SUCCINATE EXT REL 25 MG TABCR PO (11:53)
[2024-06-19] MEDS: PANTOPRAZOLE 40 MG TABLET PO (11:53)
[2024-06-19] MEDS: traZODone HCL 50 MG TABLET BY MOUTH (19:55)
[2024-06-19] MEDS: clonazePAM (*CRX) 0.5 MG TABLET PO (20:00)
[2024-06-20] VITALS (11 sets, daily range): BP systolic 113–130; BP diastolic 52–58; PULSE 90–101; RESP 16–20; TEMP 36.5–36.7; O2SAT 94–98
--- NOTE | 2024-06-20 06:00 | ECHO_ITS ---
Patient Info Name: Lisa Tovar Age: 84 years : 1940 Gender: Female Ht: 65 in Wt: 141 lbs BSA: 1.72 m2 HR: 87 bpm BP: 130 / 52 mmHg Technical Quality: Good Exam Date: 06/20/2024 10:07 AM Exam Location: Echo Lab Patient Status: Inpatient Admit Date: 06/19/2024 Staff Ordering Physician: Reza Kim MD [employer] Department Manager: Inida Spain RDCS Attending Provider: Fish Wiggins PA-C Referring Physician: Judy TAI; Exam Type: CA echo doppler color flow Study Info Indications - Pericardial effusion Complete two-dimensional, color flow and Doppler transthoracic echocardiogram is performed. Summary 1. Complete two-dimensional, color flow and Doppler transthoracic echocardiogram is performed. 2. Left ventricular chamber dimension is normal. 3. Left ventricular systolic function is normal, estimated at 60-65%. 4. The left ventricular diastolic function is grade I diastolic dysfunction. 5. E/e' 10 is mildly elevated. 6. There is mild aortic valve sclerosis. 7. There is mild mitral valve regurgitation. 8. There is mild tricuspid valve regurgitation. 9. No pulmonary hypertension, estimated pulmonary arterial systolic pressure is 24 mmHg. 10. There is trace pulmonic regurgitation. 11. There is trivial pericardial effusion. 12. Pleural effusion. Left Ventricle E/e' 10 is mildly elevated. Left ventricular chamber dimension is normal. Left ventricular systolic function is normal, estimated at 60-65%. The left ventricular diastolic function is grade I diastolic dysfunction. Right Ventricle Right ventricular chamber dimension is normal. Right ventricular systolic function is normal. Left Atria Left atrial chamber dimension is normal. Right Atria Right atrial chamber dimension is normal. Aortic Valve The aortic valve is trileaflet. There is mild aortic valve sclerosis. There is no aortic valve stenosis. There is no aortic valve regurgitation. Pulmonic Valve There is trace pulmonic regurgitation. Mitral Valve There is no mitral valve stenosis. There is mild mitral valve regurgitation. Tricuspid Valve There is mild tricuspid valve regurgitation. No pulmonary hypertension, estimated pulmonary arterial systolic pressure is 24 mmHg. Pericardium/Pleural Pleural effusion. There is trivial pericardial effusion. Inferior Vena Cava Normal inferior vena cava with >50% collapse upon inspiration consistent with normal right atrial pressure, 5 mmHg. Aorta The aortic root size at the sinus of Valsalva is normal. Left Ventricular Outflow Tract Name Value Normal LVOT 2D LVOT Diameter 1.8 cm LVOT Doppler LVOT Peak Gradient 3 mmHg LVOT Mean Gradient 2 mmHg LVOT VTI 18 cm LVOT VTI/AV VTI Ratio 0.8 LVOT Stroke Volume 45 ml LVOT CO 9.3 l/min LVOT CI 5.4 l/min/m2 Pulmonic Valve Name Value Normal PV Doppler PV Peak Gradient 2 mmHg Mitral Valve Name Value Normal MV Doppler MV Decel Foard 280 cm/s2 MV PHT 66 ms MV Area (PHT) 3.4 cm2 4.0-5.0 MV Diastolic Function MV E Peak Velocity 63 cm/s MV A Peak Velocity 78 cm/s MV E/A 0.8 MV Decel Time 226 ms MV Annular TDI MV E/e' (Septal) 11.5 <=8.0 MV E/e' (Lateral) 9.1 <=8.0 MV E/e' (Average) 10.3 Tricuspid Valve Name Value Normal TV Regurgitation Doppler TR Peak Velocity 216 cm/s TR Peak Gradient 19 mmHg Estimated PAP/RSVP RA Pressure 5 mmHg <=5 PA Systolic Pressure 24 mmHg <36 RV Systolic Pressure 24 mmHg <36 Aorta Name Value Normal Ascending Aorta Ao Root Diameter (MM) 3.2 cm Ao Root Diam Index (MM) 1.9 cm/m2 Aortic Valve Name Value Normal AV Doppler AV Peak Velocity 108 cm/s AV Peak Gradient 5 mmHg AV Mean Gradient 3 mmHg AV VTI 22 cm AV Area (Cont Eq VTI) 2.1 cm2 >=3.0 AV Area (Cont Eq Magdiel) 1.9 cm2 AV Regurgitation 2D LVOT Area 2.6 cm2 Ventricles Name Value Normal LV Dimensions 2D/MM IVS Diastolic Thickness (2D) 1.0 cm 0.6-1.0 LVID Diastole (2D) 4.3 cm 3.8-5.2 LVIW Diastolic Thickness (2D) 0.8 cm 0.6-0.9 LVID Systole (2D) 3.1 cm 2.2-3.5 LVOT Diameter 1.8 cm LV Mass (2D Cubed) 120.58 g 67.00-162.00 LV Mass Index (2D Cubed) 70 g/m2 43-95 Relative Wall Thickness (2D) 0.38 LV Fractional Shortening/Ejection Fraction 2D/MM LV Fractional Shortening (2D) 29 % 27-45 LV EF (2D Teicholz) 55 % 54-74 LV Diastolic Volume (4C MOD) 62 ml LV EF (4C MOD) 57 % LV Diastolic Volume (2C MOD) 61 ml LV EF (2C MOD) 56 % LV Diastolic Volume (BP MOD) 62 ml 46-106 LV Diastolic Volume Index (BP MOD) 36 ml/m2 29-61 LV Systolic Volume (BP MOD) 28 ml 14-42 LV Systolic Volume Index (BP MOD) 16 ml/m2 8-24 LV EF (BP MOD) 55 % 54-74 LV Diastolic Length (4C) 6.6 cm LV Systolic Length (4C) 5.3 cm LV Stroke Volume (4C MOD) 35 ml RV Dimensions 2D/MM RVID Diastole (2D) 3.5 cm 2.5-3.5 Atria Name Value Normal LA Dimensions LA Dimension (MM) 2.3 cm 2.7-3.8 LA Volume (4C A-L) 33 ml LA Volume (BP A-L) 33 ml RA Dimensions RA Area (4C) 12.4 cm2 <=18.0 Report Signatures
--- NOTE | 2024-06-20 07:59 | PM.PNCARD ---
Progress Note: A&P Assessment and Plan (1) CHF (congestive heart failure): Qualifiers: Heart failure type: diastolic Heart failure chronicity: acute on chronic Qualified Code(s): I50.33 - Acute on chronic diastolic (congestive) heart failure Code(s): I50.9 - Heart failure, unspecified Status: Acute Assessment and Plan: Acute on chronic diastolic heart failure. 05/30/24 Echo: EF 55-60%, diastolic dysfunction (E/e' 14), mild MRPatti Was on Lasix 40 mg IV BID then stopped. Limit fluid intake to 1.5 l/day. Start Lasix 20 mg PO daily. (2) Hypertension: Qualifiers: Hypertension type: essential hypertension Qualified Code(s): I10 - Essential (primary) hypertension Code(s): I10 - Essential (primary) hypertension Status: Acute Assessment and Plan: Stable. (3) Tachycardia: Code(s): R00.0 - Tachycardia, unspecified Status: Acute Assessment and Plan: On Metoprolol. (4) Chest pain: Qualifiers: Chest pain type: unspecified Qualified Code(s): R07.9 - Chest pain, unspecified Code(s): R07.9 - Chest pain, unspecified Status: Acute Assessment and Plan: Probably due to diastolic heart failure. [place] r/o by serial troponin and EKG. (5) Pericardial effusion: Code(s): I31.39 - Other pericardial effusion (noninflammatory) Status: Acute Assessment and Plan: 1 cm in thickness per CT chest. ER doctor ordered echo for 06/19/24 at 6 am, which is Thursday morning, so it won't be done until Thursday. Subjective Date/time seen: 06/20/24 07:59 Interval history: Denies chest pain or sob. Exam Const: General: cooperative, healthy appearing and comfortable Orientation/consciousness: oriented to person, oriented to place and oriented to time Resp: Auscultation: clear to auscultation bilaterally, no crackles, no rales, no rhonchi and no wheezes Cardio: Rate: regular rate Rhythm: regular rhythm Heart sounds: no murmurs Peripheral pulses: dorsalis pedis present Neuro: General: oriented to person, oriented to place and oriented to time Extrem: Right lower extremity: no edema Left lower extremity: no edema Objective Data Vital Signs Vital Signs: Vital Signs - 24 hr 04/13/25 08:00 06/19/24 08:00 06/19/24 09:13 Temperature 97.6 F Pulse Rate 103 H 108 H Respiratory Rate 20 Blood Pressure 95/51 L Pulse Oximetry 98 93 Oxygen Delivery Room Air 06/19/24 10:00 06/19/24 11:53 06/19/24 11:56 Temperature 98.8 F Pulse Rate 103 H 103 H 104 H Respiratory Rate 14 Blood Pressure 121/63 Pulse Oximetry 93 Oxygen Delivery 06/19/24 12:00 06/19/24 16:00 06/19/24 16:00 Temperature 97.7 F Pulse Rate 104 H 94 91 Respiratory Rate 14 Blood Pressure 116/57 L Pulse Oximetry 95 Oxygen Delivery 06/19/24 18:00 06/19/24 20:00 06/19/24 20:00 Temperature 97.5 F L Pulse Rate 94 94 90 Respiratory Rate 18 Blood Pressure 121/53 L Pulse Oximetry 96 Oxygen Delivery 06/19/24 20:00 06/19/24 22:00 06/20/24 00:00 Temperature Pulse Rate 95 95 Respiratory Rate Blood Pressure Pulse Oximetry Oxygen Delivery Room Air 06/20/24 00:00 06/20/24 00:30 06/20/24 02:00 Temperature 97.7 F Pulse Rate 90 92 Respiratory Rate 16 Blood Pressure 118/56 L Pulse Oximetry 94 Oxygen Delivery Room Air 06/20/24 04:00 06/20/24 04:00 06/20/24 04:20 Temperature 98.1 F Pulse Rate 95 92 Respiratory Rate 18 Blood Pressure 130/52 L Pulse Oximetry 97 Oxygen Delivery Room Air 06/20/24 06:00 Temperature Pulse Rate 101 H Respiratory Rate Blood Pressure Pulse Oximetry Oxygen Delivery Intake/Output Intake/Output: Intake & Output 06/17/24 06/18/24 06/19/24 06/20/24 23:59 23:59 23:59 23:59 Intake Total 290 1950 50 Output Total 1700 950 Balance -1410 1000 50 Meds/Results Medications: Active Medications Generic Name Dose Route Start Last Admin Trade Name Freq PRN Reason Stop Dose Admin Acetaminophen 650 mg 06/18/24 06:02 Acetaminophen 325 Mg Tablet PO Q4H PRN Mild Pain (1-3) or Fever Bupropion HCl 150 mg 06/18/24 14:50 06/19/24 11:53 Bupropion Hcl Sr (12 Hr) 150 Mg Tab PO 150 mg DAILY RASHMI Administration Clonazepam 0.5 mg 06/18/24 21:00 06/19/24 20:00 Clonazepam (*Crx) 0.5 Mg Tablet PO 0.5 mg HS RASHMI Administration Gabapentin 300 mg 06/18/24 21:00 06/19/24 18:01 Gabapentin 300 Mg Capsule PO 300 mg Q12HR RASHMI Administration Gabapentin 300 mg 06/18/24 18:00 06/19/24 18:00 Gabapentin 300 Mg Capsule PO 300 mg QPM RASHMI Administration Ceftriaxone Sodium 1 gm in 50 mls @ 100 mls/hr 06/19/24 06:00 06/20/24 06:32 Rocephin 1 Gm/Ns 50 Ml IVPB Infused Q24H RASHMI Infusion Memantine 10 mg 06/18/24 14:50 06/19/24 11:53 Memantine 10 Mg Tablet PO 10 mg DAILY RASHMI Administration Metoprolol Succinate 25 mg 06/18/24 14:50 06/19/24 11:53 Metoprolol Succinate Ext Rel 25 Mg Tabcr PO 25 mg DAILY RASHMI Administration Morphine Sulfate 2 mg 06/18/24 06:02 Morphine Sulfate (*Crx) 2 Mg/Ml Inj IV PUSH Q2H PRN Pain Rated 7-10 Ondansetron HCl 4 mg 06/18/24 06:02 Ondansetron Inj 4 Mg/2 Ml Vial IV PUSH Q4H PRN Nausea Pantoprazole Sodium 40 mg 06/18/24 14:50 06/19/24 11:53 Pantoprazole 40 Mg Tablet PO 40 mg QAM RASHMI Administration Perflutren Lipid Microsphere 0 ml 06/18/24 06:02 Perflutren Lipid Microspheres 1.5 Ml Vial Diluted To 10 Ml Total Volume IV PUSH 06/21/24 06:03 ONCE PRN adequate visualization Protocol Potassium Chloride 20 meq 06/18/24 14:50 06/19/24 11:53 Potassium Chloride 20 Meq Er Tablet PO 20 meq DAILY RASHMI Administration Trazodone HCl 50 mg 06/18/24 14:40 06/19/24 19:55 Trazodone Hcl 50 Mg Tablet BY MOUTH 50 mg HS PRN Administration Sleep Vitamin D 10,000 units 06/19/24 09:00 06/19/24 09:35 Cholecalciferol 5,000 Units Tablet PO 10,000 units DAILY RASHMI Administration Radiology Results: ITS Impressions Chest/Abdomen/Pelvis CTA 06/18/24 10:39 IMPRESSION: 1. Limited evaluation. Within the limitations of the examination, no pulmonary embolism seen. 2. Moderate bilateral pleural effusions with cardiomegaly and dependent airspace disease. Findings may represent mild CHF. Superimposed infection cannot be excluded. Clinical correlation is monitored. 3. No evidence of acute pathology in abdomen and pelvis. 4. Colonic diverticulosis.
[2024-06-20 08:22] LABS: Basophils Absolute Auto 0.1 K/mm3 (0.0-0.1); Basophils Percent Auto 0.7 % (0.2-1.2); Eosinophils Absolute Auto 0.2 K/mm3 (0-0.3); Eosinophils Percent Auto 2.3 % (0-4.4); Hematocrit 37.2 % (37.0-47.0); Immature Granulocyte Absolute 0.07 K/mm3 (0.00-0.031); Mean Corpuscular HGB Conc 32.3 g/dl (32-36); Mean Corpuscular Hemoglobin 31.3 pg (26-34); Mean Corpuscular Volume 97.1 fl (80-100); Monocytes Absolute Auto 0.9 K/mm3 (0.1-0.6); Neutrophils Absolute Auto 5.3 K/mm3 (1.3-6.7); Platelet Count Result 331 k/mm3 (150-375); Red Blood Count 3.83 M/mm3 (4.2-5.4); Red Cell Distribution Width 13.8 % (11.5-14.5); White Blood Count 7.3 K/mm3 (4.5-10.0)
[2024-06-20 08:36] LABS: Alanine Aminotransferase 25 U/L (6-35); Albumin Level 3.2 g/dL (3.5-5.1); Alkaline Phosphatase 173 U/L (38-126); Anion Gap 8 mmol/L (4-12); Aspartate Amino Transferase 27 U/L (14-36); Bilirubin,Total 0.5 mg/dL (0.2-1.3); Blood Urea Nitrogen 16 mg/dL (7-17); Calcium 8.4 mg/dL (8.4-10.2); Carbon Dioxide 28 mmol/L (22-30); Chloride 97 mmol/L (98-107); Estimated CRCL calculation 33 ml/min; Estimated Glomerular Filt Rate 54; Glucose 80 mg/dL (65-110); Potassium 3.9 mmol/L (3.4-5.0); Sodium 133 mmol/L (137-145)
[2024-06-20] MEDS: FUROSEMIDE 20 MG TABLET PO (09:14)
[2024-06-20] MEDS: CHOLECALCIFEROL 5,000 UNITS TABLET 10000 UNITS PO (09:14)
[2024-06-20] MEDS: PANTOPRAZOLE 40 MG TABLET PO (09:15)
[2024-06-20] MEDS: GABAPENTIN 300 MG CAPSULE PO (09:15)
[2024-06-20] MEDS: METOPROLOL SUCCINATE EXT REL 25 MG TABCR PO (09:15)
[2024-06-20] MEDS: POTASSIUM CHLORIDE 20 MEQ ER TABLET PO (09:15)
[2024-06-20] MEDS: buPROPion HCL SR (12 HR) 150 MG TAB PO (09:16)
[2024-06-20] MEDS: MEMANTINE 10 MG TABLET PO (09:16)
[2024-06-20] MEDS: LINEZOLID 600 MG TABLET PO (11:21)
--- NOTE | 2024-06-20 12:55 | PM.DS ---
DS: Admitting Diagnosis Discharge Date 06/20/2024 Admitting Diagnosis Chest pain Tachycardia Pericardial effusion DS: Discharge Diagnosis Discharge Diagnosis (1) CHF (congestive heart failure): Qualifiers: Heart failure chronicity: acute on chronic Heart failure type: diastolic Qualified Code(s): I50.33 - Acute on chronic diastolic (congestive) heart failure Code(s): I50.9 - Heart failure, unspecified Status: Acute (2) Chest pain: Qualifiers: Chest pain type: unspecified Qualified Code(s): R07.9 - Chest pain, unspecified Code(s): R07.9 - Chest pain, unspecified Status: Acute (3) Pericardial effusion: Code(s): I31.39 - Other pericardial effusion (noninflammatory) Status: Acute (4) Tachycardia: Code(s): R00.0 - Tachycardia, unspecified Status: Acute (5) Acute UTI: Code(s): N39.0 - Urinary tract infection, site not specified Status: Acute DS: Summary Hospital Course Reason for hospitalization: Chest pain Hospital Course: Lisa Tovar is an 84-year-old female with a past medical history of HTN and asthma who presented to the ER with a chief complain of chest pain for the past 4 days. She reports that the chest pain started spontaneously and has progressed from minimal pain worsened with movement or exertion to pain that persists constantly. She states it started becoming worse last night but was still lonly there with movement, coughing or leaning forward. She was recently seen in the hospital for a UTI and tachycardia and was ultimately discharged home on Metoprolol, but she states that her Primary Care Physician discontinued her Metoprolol.She has been trying to drink 3 bottles of water a day and noted 10 pound weight gain with edema of legs. She denies any shortness of breath, nausea, vomiting, abdominal pain, urinary or bowel complaints. Upon examination, patient's bladder does appear to be distended, as she self catheters at home. She denies any specific weakness, difficulty ambulating, headaches, dizziness, sick contacts, recent travel. Chest XR showed small L pleural effusion causing compressive atelectasis Airspace opacity in the right lung base with small left-sided pleural effusion. Findings may represent pneumonia in appropriate clinical settings, but No pneumothorax. No large consolidation. Atherosclerotic aspirations are seen in the aorta. Cardiomediastinal silhouette is grossly unremarkable. Chest/Abd/Pelvis CTA showed no pulmonary embolism. Moderate bilateral pleural effusions with cardiomegaly and dependent airspace disease. Findings may represent mild CHF. Superimposed infection cannot be excluded. Clinical correlation is monitored. No evidence of acute pathology in abdomen and pelvis. Initial Vital Signs: Temp 37.1C, 123 HR, 16 RR, 123/71 BP, 98% on RA. ED workup: WBC 8.2, RBC 4.11, Hgb 12.9, Hct 38.6, Plt count 335, PT 15.3, INR 1.2, APTT 36.1, Na 137, K 3.7, Cl 98, CO 28, BUN 12, Cr 0.95, eGFR 56, Glucose 101, Ca 8.7, AST 32, ALT 30, Alk Phos 193. Initial Troponin: <0.012, 1st repeat <0.012, 2nd repeat <0.012 BNP: 36514 UA: Trace urine protein, 1+ Leuk esterase, 3-5 RBC, 21-50 WBC, Few squamous Epith cells, 4+ urine bacteria EKG: Sinus tachycardia, RBBB, right axis deviation Cardiology was consulted given unexplained chest pain, tachycardia and possible pericardial effusion. Pt was subsequently started on Metoprolol and an echo was ordered and showed Left ventricular chamber dimension is normal, Left ventricular systolic function is normal, estimated at 60-65%, The left ventricular diastolic function is grade I diastolic dysfunction, E/e' 10 is mildly elevated, mild AV sclerosis, mild MVR, mild TVR, trace pulm regurg and trivial pericardial effusion. Pt was then switch from 40 mg IV lasix to 20mg PO lasix due to worsening dehydration. Serial troponin and EKG negative, r/o [place]. Cardiology following and okay with discharge from their standpoint with follow-up with their office. Vitals and blood work stable.Urine culture showed Enterococcus species growth, switching from Ceftriaxone to PO Linezolid and will plan to discharge at this time. Status at Discharge Functional status at discharge: independent ambulation Overall status at discharge: patient is back to baseline Time Spent with Patient Time attestation: Total time spent providing and/or coordinating discharge services:45 Exam Narrative: Gen - well appearing female in no acute respiratory distress who is nontoxic-appearing lying semi recumbent in bed HEENT - normocephalic. Atraumatic. Pupils equal round and reactive. Extraocular motions intact. Sclera clear and anicteric. Nares patent. Oropharynx was clear. No oral lesions. Moist mucous membranes. Tongue was midline. Palate rosalba symmetrically. No facial asymmetry. Neck - neck was supple. No dominant adenopathy, thyromegaly or masses. 2+ carotid upstrokes without bruits. Chest - lungs are clear to auscultation bilaterally. No wheezes or crackles. CV - heart was regular rate and rhythm. S1-S2. No murmurs gallops or rubs. Abd - abdomen was soft. Nontender. Nondistended. Positive bowel sounds. No organomegaly or masses. Ext - no clubbing, cyanosis or edema. 2+ DP pulses bilaterally. Neuro - patient is alert and oriented x4. Strength is 5/5 in both upper and lower extremities. Cranial nerves 2-12 are intact. Speech is clear. Psych - normal mood and affect. Patient is pleasant and cooperative. Skin - warm and dry. No rashes noted. DS: Data Data Completed and Pending Labs on day of discharge: Labs from last 24 hours 06/20/24 07:54 WBC 7.3 RBC 3.83 L Hgb 12.0 Hct 37.2 MCV 97.1 MCH 31.3 MCHC 32.3 RDW 13.8 Plt Count 331 MPV 10.0 Immature Gran % (Auto) 1.0 H Neut % (Auto) 73.0 Lymph % (Auto) 11.0 L [place] % (Auto) 12.0 H Eos % (Auto) 2.3 Baso % (Auto) 0.7 Lymph # (Auto) 0.80 L [place] # (Auto) 0.9 H Eos # (Auto) 0.2 Baso # (Auto) 0.1 Abs Immat Gran (auto) 0.07 H Absolute Neuts (auto) 5.3 Absolute Nucleated RBC 0.000 Nucleated RBC % 0.0 Sodium 133 L Potassium 3.9 Chloride 97 L Carbon Dioxide 28 Anion Gap 8 BUN 16 Creatinine 0.97 Estim Creat Clear Calc 33 Estimated GFR 54 L Glucose 80 Calcium 8.4 Total Bilirubin 0.5 AST 27 ALT 25 Alkaline Phosphatase 173 H Total Protein 6.0 L Albumin 3.2 L Discharge Plan Discharge Attending physician on discharge: Fish Wiggins Consulting providers: Armond Castaneda Discharging Clinician: Fish Wiggins Anticipated Discharge Date/Time: 06/20/24 12:48 Patient Disposition: Home with Home Health Service Activity: as tolerated Diet: as tolerated Discharge Instructions: Per Care Coordination: To resume [facility] ([phone]) for RN/OT/PT at discharge. RN please fax discharge instructions to [phone] Discharge disposition: Stable Take medications as prescribed. You will be discharged with a prescription for Lasix 20mg to take daily. Monitor blood pressures Take caution while standing, rising, or moving Change positions slowly taking a break between each position change If you standing feel dizzy sit back down and take a break Encouraged to continue with yearly vaccinations Return to the emergency department if he developed sudden shortness of breath, chest pain, nausea, vomiting, upset stomach or intractable diarrhea Return to the emergency department if you develop fever greater than 101.5 Follow-up with the primary care physician within 1-2 [address] up with Dr. Castaneda with Cardiology in 1-2 weeks. Thank you for choosing [facility] for your healthcare needs Patient Instructions: Antibiotic Form, Pleural Effusion (GEN), Pericardial Effusion (GEN) Patient Language: Frisian Stand Alone Forms: General Discharge Information Follow-up/Referrals: Armond Castaneda DO [Physician] - Evangelista Carlson MD [Primary Care Provider] - Discharge Medications: New pantoprazole 40 mg Tablet,Delayed Release (Dr/Ec) 40 mg PO QAM Qty: 30 0RF linezolid 600 mg Tablet 600 mg PO Q12HR Qty: 13 0RF Continued Centrum Silver Women 8 mg iron-400 mcg-50 mcg Tablet 1 tablet PO DAILY metoprolol succinate 25 mg tablet extended release 24 hr 25 mg PO DAILY bupropion HCl 150 mg tablet sustained-release 12 hr 150 mg PO DAILY Rx Instructions: TAKE 1 TABLET BY MOUTH EVERY MORNING PreserVision Lutein 226-90-0.8-5 mg Capsule 1 cap PO BID cholecalciferol (vitamin D3) [Vitamin D3] 125 mcg (5,000 unit) Tablet 250 mcg PO DAILY gabapentin 300 mg capsule 300 mg PO .COMPLEX Rx Instructions: 300 mg orally in the AM, 2 in PM, and 1 HS; donepezil 10 mg tablet 10 mg PO DAILY memantine 10 mg tablet 10 mg PO DAILY Qty: 90 2RF potassium chloride 20 mEq tablet,ER particles/crystals See Rx Instructions .ROUTE .COMPLEX Qty: 90 2RF Dose Instruction: TAKE 1 TABLET BY MOUTH DAILY Rx Instructions: TAKE 1 TABLET BY MOUTH DAILY trazodone 50 mg tablet See Rx Instructions .ROUTE .COMPLEX Qty: 90 2RF Dose Instruction: TAKE 1 TABLET BY MOUTH EVERY DAY AT BEDTIME NEEDED FOR SLEEP Rx Instructions: TAKE 1 TABLET BY MOUTH EVERY DAY AT BEDTIME NEEDED FOR SLEEP clonazepam 0.5 mg tablet 0.5 mg PO HS Qty: 30 2RF Discontinued terbinafine HCl 250 mg tablet 250 mg PO DAILY biotin 500 mcg Capsule 500 mcg PO DAILY furosemide 40 mg tablet See Rx Instructions .ROUTE .COMPLEX Qty: 90 3RF Dose Instruction: TAKE 1 TABLET BY MOUTH EVERY MORNING Rx Instructions: TAKE 1 TABLET BY MOUTH EVERY MORNING lansoprazole 30 mg capsule,delayed release(DR/EC) See Rx Instructions .ROUTE .COMPLEX Qty: 90 2RF Dose Instruction: TAKE 1 CAPSULE BY MOUTH DAILY BEFORE A MEAL Rx Instructions: TAKE 1 CAPSULE BY MOUTH DAILY BEFORE A MEAL Date of admission: 06/19/24 12:28 Primary Care Provider: Evangelista Carlson Admitting Provider: Colton Santacruz Attending physician on admission: Fish Wiggins Condition: Stable Quality VTE Prophylaxis VTE prophylaxis: mechanical ordered
--- NOTE | 2024-06-20 15:28 | PC.NURSE ---
dc info sent to [facility]
== END 2024-06-20 15:20 | disposition home health service (06) | DRG 291 ==
LOC: ANHED 06:06 → ANHIMU 06:34
PROVIDERS: Admitting Provider Internal Medicine; Emergency Provider Emergency Medicine; PCP Emergency Medicine; Visit Provider Physician Assistant
DX: I11.0 Hypertensive heart disease with heart failure (principal); I50.33 Acute on chronic diastolic (congestive) heart failure; I31.39 Other pericardial effusion (noninflammatory); N39.0 Urinary tract infection, site not specified; J45.909 Unspecified asthma, uncomplicated; E78.00 Pure hypercholesterolemia, unspecified; E55.9 Vitamin D deficiency, unspecified; K21.9 Gastro-esophageal reflux disease without esophagitis; K57.30 Diverticulosis of large intestine without perforation or abscess without bleeding; R41.3 Other amnesia; R26.81 Unsteadiness on feet; H91.13 Presbycusis, bilateral; G25.81 Restless legs syndrome; F32.A Depression, unspecified; F41.9 Anxiety disorder, unspecified; Z20.822 Contact with and (suspected) exposure to COVID-19; Z86.0101 Personal history of adenomatous and serrated colon polyps; Z87.891 Personal history of nicotine dependence
CPT/HCPCS: 36415; 71045; 71275; 74177; 80053; 81001; 83690; 83735; 83880; 84484; 85025; 85610; 85730; 87086; 87181; 87637; 93005; 93306; 96365; 96375; 96376; 99285; A9270; G0378; J0696; J1885; J1938; J2270; Q9967

== ENCOUNTER 2024-06-28 23:34 | Inpatient (IN) | payer MEDICARE, SELFPAY ==
--- NOTE | ~2024-06-28 | XR_ITS ---
HISTORY: lt shoulder pain, NKI COMPARISON: None. Reference is made to a CTA of the chest performed 24 hours earlier. 6 TECHNIQUE: 3 views of the left shoulder were performed FINDINGS: No acute fracture. The glenohumeral and acromioclavicular joint space is maintained The visualized portion of the adjacent left lung demonstrates moderate pleural fluid. The humeral head is well seated within the glenoid fossa. IMPRESSION: No acute fracture or anterior dislocation. Moderate left-sided pleural effusion, unchanged from CTA of the chest performed 24 hours earlier Reviewed, dictated and finalized at location A.
--- NOTE | ~2024-06-28 | CT_ITS ---
Clinical Indication: Chest pain, shortness of breath CT Scan of the Chest with Contrast: Technique: Contiguous sections were acquired throughout the chest after intravenous administration of 100 cc of Omnipaque 350. Dose reduction technique was used on this scan by utilizing automated expos ure control and iterative reconstruction technique. The dose-length product (DLP) was 175.90 mGy-cm. COMPARISON: 06/18/2024 Findings: There is no evidence of any significant mediastinal, hilar or axillary lymphadenopathy. There is no f illing defect in the pulmonary arterial tree to suggest pulmonary embolus. There is no evidence of ao rtic dissection or aneurysm. Small pericardial effusion present. Moderate bilateral pleural effusions are present. There is bibasilar atelectatic change. Lungs are ot herwise clear. Images through the upper abdomen reveal no abnormalities. Impression: Moderate bilateral pleural effusions with bibasilar atelectasis. Small pericardial effusion. No pulmonary embolus. Reviewed, dictated and finalized at [facility]. Impression: Moderate bilateral pleural effusions with bibasilar atelectasis. Small pericardial effusion. No pulmonary embolus.
--- NOTE | ~2024-06-28 | NM_ITS ---
EXAMINATION: NM latrice stress w perfusion DATE: 07/01/2024 13:09 INDICATION: Chest pain TECHNIQUE: Rest images were obtained following intravenous administration of 9.5 mCi Tc99m tetrofosmi n (Myoview). The patient was infused intravenously with Lexiscan (Regadenoson). Then, 30 mCi Tc99m te trofosmin (Myoview) was administered intravenously, and stress images were obtained. Data was reconst ructed into short axis and horizontal and vertical long axis SPECT images. Gated SPECT images were al so obtained. COMPARISON: None. FINDINGS: There is no definite reversible or fixed perfusion abnormality to suggest ischemia or infar ction. There is normal left ventricular chamber size, wall motion and ejection fraction. Left ventr icular ejection fraction measures 55%. IMPRESSION: 1. Normal myocardial perfusion at rest and during stress. 2. Left ventricular ejection fraction measuring 55%. Reviewed, dictated and finalized at location A.
--- NOTE | ~2024-06-28 | XR_ITS ---
Clinical Indication: Shortness of breath PA and lateral views of the chest: Comparison: 06/18/2024 Findings: There are small bilateral pleural effusions. Probable minimal bibasilar pulmonary edema/ate lectasis.. Cardiomediastinal silhouette is within normal limits. Bones and soft tissues are unremark able. Impression: Small pleural effusions with minimal bibasilar pulmonary edema/atelectasis. Reviewed, dictated and finalized at location . Impression: Small pleural effusions with minimal bibasilar pulmonary edema/atelectasis.
[2024-06-28 23:32] VITALS: BP 130/61; PULSE 104; RESP 19; TEMP 37.1; O2SAT 96
[2024-06-28 23:39] VITALS: PULSE 102; RESP 24; O2SAT 97
[2024-06-28 23:40] VITALS: PULSE 103; O2SAT 94
--- NOTE | 2024-06-28 23:41 | ECG_ITS ---
Test Date: 2024-06-28 23:42:31 Measurements Intervals Sunspot Rate: 102 P: 9 TN: 174 QRS: -83 QRSD: 145 T: 22 QT: 400 QTc: 521 Interpretive Statements SINUS TACHYCARDIA RIGHT BUNDLE BRANCH BLOCK LEFT ANTERIOR FASCICULAR BLOCK BASELINE ARTIFACT- II, III ABNORMAL ECG Compared to ECG 06/18/2024 09:50:46 NO SIGNIFICANT CHANGE Electronically Signed On 06-29-2024 06:36:25 CDT by Armond Castaneda D.O.
[2024-06-28 23:45] VITALS: PULSE 100; RESP 18; O2SAT 95
[2024-06-29] VITALS (37 sets, daily range): BP systolic 115–143; BP diastolic 48–114; PULSE 90–118; RESP 16–28; TEMP 36.4–36.7; O2SAT 91–100; BMI 22.6
[2024-06-29 00:10] LABS: Alanine Aminotransferase 15 U/L (6-35); Albumin Level 3.6 g/dL (3.5-5.1); Alkaline Phosphatase 160 U/L (38-126); Anion Gap 10 mmol/L (4-12); Aspartate Amino Transferase 18 U/L (14-36); Bilirubin,Total 0.5 mg/dL (0.2-1.3); Blood Urea Nitrogen 14 mg/dL (7-17); Calcium 8.6 mg/dL (8.4-10.2); Carbon Dioxide 25 mmol/L (22-30); Chloride 98 mmol/L (98-107); Estimated CRCL calculation 35 ml/min; Estimated Glomerular Filt Rate 59; Glucose 107 mg/dL (65-110); Sodium 133 mmol/L (137-145)
[2024-06-29 00:12] LABS: INR 1.2; Prothrombin Time 15.2 Seconds (11.1-14.7)
[2024-06-29 00:13] LABS: Partial Thromboplastin Time 37.1 Seconds (22.3-36.8)
[2024-06-29 00:14] LABS: Basophils Absolute Auto 0.1 K/mm3 (0.0-0.1); Basophils Percent Auto 0.7 % (0.2-1.2); Eosinophils Absolute Auto 0.1 K/mm3 (0-0.3); Hematocrit 38.9 % (37.0-47.0); Hemoglobin 12.8 g/dL (12.0-15.0); Immature Granulocyte Absolute 0.15 K/mm3 (0.00-0.031); Immature Granulocyte Percent A 1.7 % (0-0.5); Lymphocytes Absolute Auto 1.01 K/mm3 (0.9-3.2); Lymphocytes Percent Auto 11.1 % (18.3-44.2); Mean Corpuscular HGB Conc 32.9 g/dl (32-36); Mean Corpuscular Hemoglobin 31.2 pg (26-34); Mean Corpuscular Volume 94.9 fl (80-100); Mean Platelet Volume 9.5 fl (7.4-10.4); Monocytes Absolute Auto 0.8 K/mm3 (0.1-0.6); Monocytes Percent Auto 8.8 % (2.6-8.5); Neutrophils Percent Auto 76.7 % (45.5-73.1); Platelet Count Result 317 k/mm3 (150-375); Red Cell Distribution Width 13.8 % (11.5-14.5); White Blood Count 9.1 K/mm3 (4.5-10.0)
--- OUTSIDE RECORDS SUMMARY | 2024-06-29 00:17 | XMS_ITS | Clinical Summary ---
Author Organization [facility] Address [address] [facility] Attn: Epic Prelude ADT TATY ANGEL [address] Care Team Providers Care Rock Worker Name Role Phone Unavailable Primary Care Provider Unavailabl e Social History Tobacco Use Types Packs/Day Years Used Date Smoking Tobacco: Never Assessed Comments Unknown Sex and Gender Information Value Date Recorded Sex Assigned at Not on file Legal Sex Female 4:46 AM OUTSIDE RIGGER Gender Identity Not on file Sexual Orientation [...]
--- OUTSIDE RECORDS SUMMARY | 2024-06-29 00:17 | XMS_ITS | Encounter Summary ---
Author Organization [facility] Address 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
--- OUTSIDE RECORDS SUMMARY | 2024-06-29 00:17 | XMS_ITS | Clinical Summary ---
Author Organization [facility] [place] Address [address] [place] [address] Care Team Providers Care Insulation Extruder Operator Name Role Phone Evangelista Carlson MD Primary Care Provide r Berny Vazquez MD Unavailable [phone] Allergies Active Allergy Reactions Criticality Noted Date [...] parkinsonism. Assessment & Plan (03/31/2022 11:14 AM BIOMASS TECHNICIAN): She had stage 3 parkinsonism characterized by [...] depression. Assessment & Plan (01/14/2021 12:22 PM BIOMASS TECHNICIAN): She had stage 3 parkinsonism characterized by [...] reevaluate her in 6 months with our Rn Gastroenterology and repeat a video at that time. [...] on file Legal Sex Female 1:49 AM BIOMASS TECHNICIAN Gender Identity Female 07/15/2021 8:28 PM CDT [...] Payer ( fective 2003-Present) Name:Lisa Tovar Member ID:[id number] Relation to Subscriber:Self Name:Lisa Tovar Subscriber ID:[id number] Payer ID:[id number] Group ID:Not on file Type:MEDICARE TRADITIONAL Address: [place] [phone] [facility] Care Teams Insulation Extruder Operator Relationship Specialty Start Date End Date Evangelista Carlson MD [address] [facility] [place] [address] PCP - General Emergency Medicine 07/26/20 Berny Vazquez MD [facility] [place] [address] Referring Physician Allergy and Immunology 01/11/21
--- OUTSIDE RECORDS SUMMARY | 2024-06-29 00:17 | XMS_ITS | Clinical Summary ---
Author Organization [facility] Address [address] [place] [address] Care Team Providers Care Test Engineering Intern Name Role Phone Unavailable Primary Care Provider [...] Td Vaccines ( 1 - Tdap) 1959 Pneumococcal Vaccine: 50+ Ye ars (1 of 1 - PCV) 01/24/1988 Zoster Vaccines (1 of 2) 01/24/1988 RSV Immunization or 60+ Years (1 - [...]
--- OUTSIDE RECORDS SUMMARY | 2024-06-29 00:17 | XMS_ITS | Encounter Summary ---
Author Organization [facility] Address 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
--- OUTSIDE RECORDS SUMMARY | 2024-06-29 00:17 | XMS_ITS | Encounter Summary ---
Author Organization [facility] Address [address] [place] [address] Care Team Providers Care Central Office Maintainer Name Role Phone Unavailable Primary Care Provider [...] on file Legal Sex Female 4:46 AM SECURITIES DEALER Gender Identity Not on file Sexual Orientation Not on file documented as of this encounter Plan of Treatment Not on file documented as of this encounter Visit Diagnoses Not on filedocumented in this encounter
--- OUTSIDE RECORDS SUMMARY | 2024-06-29 00:17 | XMS_ITS | Referral Summary ---
Author Organization [facility] [place] Address [address] [place] [address] Care Team Providers Care Electric Scoop Operator Name Role Phone Evangelista Carlson MD Primary Care Provide r Berny Vazquez MD Unavailable [phone] Allergies Active Allergy Reactions Criticality Noted Date [...] parkinsonism. Assessment & Plan (03/31/2022 11:14 AM AIRPORT BAGGAGE SCREENER): She had stage 3 parkinsonism characterized by [...] depression. Assessment & Plan (01/14/2021 12:22 PM AIRPORT BAGGAGE SCREENER): She had stage 3 parkinsonism characterized by [...] reevaluate her in 6 months with our Catering Truck Driver and repeat a video at that [...] on file Legal Sex Female 1:49 AM AIRPORT BAGGAGE SCREENER Gender Identity Female 07/15/2021 8:28 PM CDT [...] Treatment Not on file Insurance MEDICARE MEDICARE [facility] [place] [id number] MEDICARE [facility] Care Teams Electric Scoop Operator Relationship Specialty Start Date End Date Evangelista Carlson MD [address] [place] [address] PCP - General Emergency Medicine 07/26/20 Berny Vazquez MD [address] [place] [address] Referring Physician Allergy and Immunology 01/11/21
--- OUTSIDE RECORDS SUMMARY | 2024-06-29 00:17 | XMS_ITS | Continuity of Care Document ---
Author Organization [facility] Address [address] [place] [address] Phone Care Team Providers Care Senior Hardware Design Engineer Name Role Phone Chet Murray Unavailable Unavailable [...] Copied on Encounter Office/outpat ient Visit, [facility], [address], [place], [place], [id number], [place] tel:[phone] [facility] No Information 0 Trevor Rosenberg. [address] , [address], [place], [address], [place]. tel:[phone] [facility], [address], [place], [place], [id number], [place] tel:[phone] [facility] No Information [address] [employer] . [address] [facility], [address], [place], [place], [address], [place]. tel:[phone] Referring Provider: Chet Smith, [address], [place], [address]. tel:[phone] esquivel Provider: Chrissy Huffman, [address] [facility], [place], [address]. tel:[phone] [facility], [address] [facility] [facility] [address], [place], [place], [address], tel:[phone] [facility] No Information 7-[address] 9 Doimiriam Rosenberg. [address] [facility] , [address], [place], [place], [facility], . tel:[phone] [facility], [address], [place], [place], [address], tel:[phone] [facility] No Information 3-[address] 8 Trevor Rosenberg. [facility] , [address], [place], [place], [facility], . tel:[phone] [facility], [address] [place] [address] [address], [place], [place], [address], tel:[phone] [facility] No Information 0 8-200 7 Trevor Rosenberg. [facility] , [address], [place], [place], [facility], . tel:[phone] Family History Family Member Type Diagnosis Age At Onset No Information Payers Payer name Insurance type Covered alliance party ID Authoriza tion(s) [place] [id number] [place] [id number] Social History Type Description Quantity Date Captured [...]
--- OUTSIDE RECORDS SUMMARY | 2024-06-29 00:17 | XMS_ITS | Encounter Summary ---
Author Organization [facility] Address [address] [place] [address] Care Team Providers Care Dwarf Tree Grower Name Role Phone Unavailable Primary Care Provider [...] on file Legal Sex Female 4:46 AM EXHIBIT DESIGNER Gender Identity Not on file Sexual Orientation Not on file documented as of this encounter Plan of Treatment Not on file documented as of this encounter Visit Diagnoses Not on filedocumented in this encounter
[2024-06-29 00:22] LABS: NT Pro B Type Natriuretic Pept 3220 pg/mL (19.9-100); Troponin I < 0.012 ng/mL (0.000-0.034)
[2024-06-29 00:31] LABS: Procalcitonin 0.1 ng/mL
[2024-06-29 00:50] LABS: Influenza A QL RT-PCR Negative (Negative); Influenza B QL RT-PCR Negative (Negative); RSV RNA, RT-PCR Negative (Negative); SARS-CoV-2 RNA PCR Negative (Negative)
[2024-06-29] MEDS: MORPHINE SULFATE (*CRX) 4 MG/ML INJ 2 MG IV PUSH (01:52)
[2024-06-29 02:05] LABS: Add Urine Microscopic? NO; Appearance Urine Clear (Clear); Bilirubin Urine Negative (Negative); Blood Urine Negative (Negative); Color Urine Yellow (Yellow); Glucose Urine UA Negative (Negative); Ketones Urine Negative (Negative); Leukocyte Esterase Ur Negative LEU/UL (Negative); Nitrate Urine Negative (Negative); Protein Urine Negative (Negative); Specific Grav Ur 1.013 (1.001-1.035); Urobilinogen Urine 0.2 mg/dL (<2.0); pH Urine 6.5 (5.0-9.0)
--- NOTE | 2024-06-29 02:07 | ED_ITS ---
HPI - General Adult General Chief complaint: Chest Pain Stated complaint: L SHOULDER PAIN/RAD TO NECK AND BACK Time Seen by Provider: 06/28/24 23:47 History of Present Illness HPI narrative: patient is a 84-year-old female who presents emergency department with chief complaint of pain in her chest and back the patient states that she was recently diagnosed with congestive heart failure reports that she was told to increase her dose of Lasix as she has had increasing edema patient states that she is short of breath with any kind of walking and reports that the pain is worse with inspiration or and also removed the patient denies diaphoresis Related Data Home Medications ?Medication ?Instructions ?Recorded ?Confirmed ?Last Taken ?Type cholecalciferol (vitamin D3) 125 250 mcg PO DAILY 04/07/23 06/28/24 3 Days Ago History mcg (5,000 unit) tablet (Vitamin ~07/12/23 D3) vit C 226 mg-vit E 90 mg-copper 1 cap PO BID 04/07/23 06/28/24 3 Days Ago History 0.8 mg-zinc oxide-lutein 5 mg ~07/12/23 capsule (PreserVision Lutein) gabapentin 300 mg capsule 300 mg PO .COMPLEX 06/08/23 06/28/24 07/15/23 History wddlicwt-wryp-mebc 8 mg-folic 400 1 tablet PO DAILY 07/10/23 06/28/24 3 Days Ago History mcg-K 50 mcg-lutein 300 mcg tablet ~07/12/23 (Centrum Silver Women) bupropion HCl 150 mg tablet,12 hr 150 mg PO DAILY 06/18/24 06/28/24 Unknown History sustained-release fluticasone furoate 100 1 inh inhalation DAILY 06/22/24 06/28/24 Unknown History mcg-vilanterol 25 mcg/dose inhalation powder (Breo Ellipta) furosemide 20 mg tablet 20 mg PO DAILY 06/22/24 06/28/24 Unknown History Allergies Allergy/AdvReac Type Severity Reaction Status Date / Time propoxyphene (From Darvon) Allergy Severe Swelling Verified 06/28/24 23:46 of Lip/Tongue/Throat donepezil (From Aricept) AdvReac Intermediate Abdominal Verified 06/28/24 23:46 Pain Review of Systems 2 Review of Systems: A 10 system review of systems was completed on the patient and is negative except for what is stated in the HPI. Nursing and ancillary documentation was reviewed. [facility] Past Medical History Medical History Dermatitis Irritant contact dermatitis Self-catheterizes urinary bladder Left inguinal hernia Encounter for other specified surgical aftercare Incarcerated right inguinal hernia Partial small bowel obstruction Right inguinal hernia Lipoma of colon Hx of adenomatous colonic polyps Restless legs syndrome Acute blood loss anemia Hyponatremia Pneumoperitoneum Spleen laceration Constipation Bloating Belching symptom Diverticulosis Frequent UTI Memory loss Mild persistent asthma without complication Presbycusis, bilateral Pure hypercholesterolemia Unsteady gait Vitamin D deficiency Insomnia Anxiety Hypertension Asthma GERD (gastroesophageal reflux disease) Depression Surgical History Surgical History History of colonoscopy , complicated by splenic & injury per patient H/O inguinal hernia repair Robotic laparoscopic repair incarcerated right inguinal hernia, robotic laparoscopic repair left inguinal hernia, both repairs with mesh on 07/14 History of tubal ligation History of cholecystectomy Family History Family History Father Family history of transient ischemic attacks Patient's father is Cerebrovascular accident, Onset Age: 77 Sibling Family history of chronic obstructive pulmonary disease Family history of lung cancer Patient's brother is Mother Family history of transient ischemic attacks, Onset Age: 91 Other Family history of schizophrenia Social History Social History Social History: Surrogate medical decision maker: Che Field or Steffany Leeann, daughters. Code status: Full code. Caffeine-none Smoking packs per day: 2 Smoking cigarettes per day: 40.0 Years smoked: 4 Smoking pack-years: 8.00 Smoking status: Former smoker Tobacco type: cigarettes Second hand tobacco smoke exposure: No Smoking end date: 03/09/87 Alcohol intake: never Substance use: never Substance use type: does not use Do You Feel Safe in your Home?: Yes Lack of Transportation: No Lack of Food: Never True Current Housing: I Have Housing Concerned About Future Housing: No Difficulty Paying Gas/Electric Bills: No Difficulty Paying for Meds: No Currently Unemployed: No Education: Master's Degree or Higher Difficulty w/ Childcare or Family Care: No Living arrangements: alone Spiritual care concerns: No Agree to blood products: Yes Exam 2 Narrative: GENERAL: Well-appearing, well-nourished, and in no acute distress. HEAD: Normocephalic, atraumatic. EYES: PERRLA and EOMI. ENT: Nares clear, no rhinorrhea or epistaxis. Mucous membranes moist. NECK: Supple. CHEST: Clear to auscultation. No respiratory distress. HEART: Regular rate and rhythm. No murmur heard. Normal peripheral pulses. ABDOMEN: Soft, nontender, nondistended, normal active bowel sounds. EXTREMITIES: Normal range of motion. No edema. SKIN: Warm, dry, no rash. NEURO: No focal deficits. Alert and oriented x3. PSYCH: Normal mood and affect. Course Vital Signs Vital signs: Vital Signs Temperature 37.1 C 06/28/24 23:32 Pulse Rate 104 H 06/28/24 23:32 Respiratory Rate 19 06/28/24 23:32 Blood Pressure 130/61 06/28/24 23:32 Pulse Oximetry 96 06/28/24 23:32 Oxygen Delivery Room Air 06/28/24 23:32 Temperature 37.1 C 06/28/24 23:32 Pulse Rate 107 H 06/29/24 02:46 Respiratory Rate 20 06/29/24 02:46 Blood Pressure 138/69 06/29/24 02:45 Pulse Oximetry 92 06/29/24 02:46 Oxygen Delivery Room Air 06/28/24 23:40 Medical Decision Making MDM Narrative Medical decision making narrative: Differential diagnosis includes ACS, chest wall pain, musculoskeletal pain, pulmonary embolism. CTA chest showed no evidence of PE but did show evidence of pneumonia with possible aspiration. BNP is improved from previous visit troponin was negative lactic acid was normal white blood cell count was 9.1 there was 0.15 on absolute immature granulocytes Vital Signs Vital Signs: Vital Signs Temperature 37.1 C 06/28/24 23:32 Pulse Rate 104 H 06/28/24 23:32 Respiratory Rate 19 06/28/24 23:32 Blood Pressure 130/61 06/28/24 23:32 Pulse Oximetry 96 06/28/24 23:32 Oxygen Delivery Room Air 06/28/24 23:32 Temperature 37.1 C 06/28/24 23:32 Pulse Rate 107 H 06/29/24 02:46 Respiratory Rate 20 06/29/24 02:46 Blood Pressure 138/69 06/29/24 02:45 Pulse Oximetry 92 06/29/24 02:46 Oxygen Delivery Room Air 06/28/24 23:40 Lab Data 06/28/24 23:51 06/28/24 23:51 Labs: Lab Results 06/28/24 06/29/24 06/29/24 Range/Units 23:51 00:10 00:25 WBC 9.1 (4.5-10.0) K/mm3 RBC 4.10 L (4.2-5.4) M/mm3 Hgb 12.8 (12.0-15.0) g/dL Hct 38.9 (37.0-47.0) % MCV 94.9 (80-100) fl MCH 31.2 (26-34) pg MCHC 32.9 (32-36) g/dl RDW 13.8 (11.5-14.5) % Plt Count 317 (150-375) k/mm3 MPV 9.5 (7.4-10.4) fl Immature Gran % (Auto) 1.7 H (0-0.5) % Neut % (Auto) 76.7 H (45.5-73.1) % Lymph % (Auto) 11.1 L (18.3-44.2) % [place] % (Auto) 8.8 H (2.6-8.5) % Eos % (Auto) 1.0 (0-4.4) % Baso % (Auto) 0.7 (0.2-1.2) % Lymph # (Auto) 1.01 (0.9-3.2) K/mm3 [place] # (Auto) 0.8 H (0.1-0.6) K/mm3 Eos # (Auto) 0.1 (0-0.3) K/mm3 Baso # (Auto) 0.1 (0.0-0.1) K/mm3 Abs Immat Gran (auto) 0.15 H (0.00-0.031) K/mm3 Absolute Neuts (auto) 7.0 H (1.3-6.7) K/mm3 Absolute Nucleated RBC 0.000 (0.0-0.012) K/mm3 Nucleated RBC % 0.0 (0.0-0.2) % PT 15.2 H (11.1-14.7) Seconds INR 1.2 APTT 37.1 H (22.3-36.8) Seconds Sodium 133 L (137-145) mmol/L Potassium 4.0 (3.4-5.0) mmol/L Chloride 98 (98-107) mmol/L Carbon Dioxide 25 (22-30) mmol/L Anion Gap 10 (4-12) mmol/L BUN 14 (7-17) mg/dL Creatinine 0.91 (0.7-1.0) mg/dL Estim Creat Clear Calc 35 ml/min Estimated GFR 59 (59 - ) Glucose 107 (65-110) mg/dL Lactic Acid 1.0 (0.7-2.0) mmol/L Calcium 8.6 (8.4-10.2) mg/dL Total Bilirubin 0.5 (0.2-1.3) mg/dL AST 18 (14-36) U/L ALT 15 (6-35) U/L Alkaline Phosphatase 160 H (38-126) U/L Troponin I < 0.012 (0.000-0.034) ng/mL NT-Pro-B Natriuret Pep 3220 H (19.9-100) pg/mL Total Protein 6.0 L (6.3-8.2) g/dL Albumin 3.6 (3.5-5.1) g/dL Procalcitonin 0.1 ng/mL Urine Color (Yellow) Urine Appearance (Clear) Urine pH (5.0-9.0) Ur Specific [place] (1.001-1.035) Urine Protein (Negative) mg/dL Urine Glucose (UA) (Negative) mg/dL Urine Ketones (Negative) mg/dL Ur Blood (Man) (Negative) Urine Nitrate (Negative) Urine Bilirubin (Negative) Urine Urobilinogen (<2.0) mg/dL Leukocyte Esterase Rfl (Negative) RYLEE/UL Influenza A (RT-PCR) Negative (Negative) Influenza B (RT-PCR) Negative (Negative) RSV (RT-PCR) Negative (Negative) SARS-CoV-2 RNA (RT-PCR) Negative (Negative) 06/29/24 06/29/24 Range/Units 01:51 03:07 WBC (4.5-10.0) K/mm3 RBC (4.2-5.4) M/mm3 Hgb (12.0-15.0) g/dL Hct (37.0-47.0) % MCV (80-100) fl MCH (26-34) pg MCHC (32-36) g/dl RDW (11.5-14.5) % Plt Count (150-375) k/mm3 MPV (7.4-10.4) fl Immature Gran % (Auto) (0-0.5) % Neut % (Auto) (45.5-73.1) % Lymph % (Auto) (18.3-44.2) % [place] % (Auto) (2.6-8.5) % Eos % (Auto) (0-4.4) % Baso % (Auto) (0.2-1.2) % Lymph # (Auto) (0.9-3.2) K/mm3 [place] # (Auto) (0.1-0.6) K/mm3 Eos # (Auto) (0-0.3) K/mm3 Baso # (Auto) (0.0-0.1) K/mm3 Abs Immat Gran (auto) (0.00-0.031) K/mm3 Absolute Neuts (auto) (1.3-6.7) K/mm3 Absolute Nucleated RBC (0.0-0.012) K/mm3 Nucleated RBC % (0.0-0.2) % PT (11.1-14.7) Seconds INR APTT (22.3-36.8) Seconds Sodium (137-145) mmol/L Potassium (3.4-5.0) mmol/L Chloride (98-107) mmol/L Carbon Dioxide (22-30) mmol/L Anion Gap (4-12) mmol/L BUN (7-17) mg/dL Creatinine (0.7-1.0) mg/dL Estim Creat Clear Calc ml/min Estimated GFR (59 - ) Glucose (65-110) mg/dL Lactic Acid (0.7-2.0) mmol/L Calcium (8.4-10.2) mg/dL Total Bilirubin (0.2-1.3) mg/dL AST (14-36) U/L ALT (6-35) U/L Alkaline Phosphatase (38-126) U/L Troponin I Pending (0.000-0.034) ng/mL NT-Pro-B Natriuret Pep (19.9-100) pg/mL Total Protein (6.3-8.2) g/dL Albumin (3.5-5.1) g/dL Procalcitonin ng/mL Urine Color Yellow (Yellow) Urine Appearance Clear (Clear) Urine pH 6.5 (5.0-9.0) Ur Specific [place] 1.013 (1.001-1.035) Urine Protein Negative (Negative) mg/dL Urine Glucose (UA) Negative (Negative) mg/dL Urine Ketones Negative (Negative) mg/dL Ur Blood (Man) Negative (Negative) Urine Nitrate Negative (Negative) Urine Bilirubin Negative (Negative) Urine Urobilinogen 0.2 (<2.0) mg/dL Leukocyte Esterase Rfl Negative (Negative) RYLEE/UL Influenza A (RT-PCR) (Negative) Influenza B (RT-PCR) (Negative) RSV (RT-PCR) (Negative) SARS-CoV-2 RNA (RT-PCR) (Negative) Discharge Plan Discharge Clinical Impression: Pneumonia Chest pain Qualifiers: Chest pain type: unspecified Qualified Code(s): R07.9 - Chest pain, unspecified Patient Disposition: Still a Patient Condition: Stable Patient Language: Samoan Prescriptions: No Action fluticasone furoate-vilanterol [Breo Ellipta] 100-25 mcg/dose blister with device 1 inh inhalation DAILY furosemide 20 mg tablet 20 mg PO DAILY Centrum Silver Women 8 mg iron-400 mcg-50 mcg Tablet 1 tablet PO DAILY bupropion HCl 150 mg tablet sustained-release 12 hr 150 mg PO DAILY Rx Instructions: TAKE 1 TABLET BY MOUTH EVERY MORNING linezolid 600 mg Tablet 600 mg PO Q12HR Qty: 13 0RF pantoprazole 40 mg Tablet,Delayed Release (Dr/Ec) 40 mg PO QAM Qty: 30 0RF metoprolol succinate 25 mg tablet extended release 24 hr 25 mg PO DAILY Qty: 30 0RF PreserVision Lutein 226-90-0.8-5 mg Capsule 1 cap PO BID cholecalciferol (vitamin D3) [Vitamin D3] 125 mcg (5,000 unit) Tablet 250 mcg PO DAILY gabapentin 300 mg capsule 300 mg PO .COMPLEX Rx Instructions: 300 mg orally in the AM, 2 in PM, and 1 HS; memantine 10 mg tablet 10 mg PO DAILY Qty: 90 2RF potassium chloride 20 mEq tablet,ER particles/crystals See Rx Instructions .ROUTE .COMPLEX Qty: 90 2RF Dose Instruction: TAKE 1 TABLET BY MOUTH DAILY Rx Instructions: TAKE 1 TABLET BY MOUTH DAILY trazodone 50 mg tablet See Rx Instructions .ROUTE .COMPLEX Qty: 90 2RF Dose Instruction: TAKE 1 TABLET BY MOUTH EVERY DAY AT BEDTIME NEEDED FOR SLEEP Rx Instructions: TAKE 1 TABLET BY MOUTH EVERY DAY AT BEDTIME NEEDED FOR SLEEP clonazepam 0.5 mg tablet 0.5 mg PO HS Qty: 30 2RF Follow-up/Referrals: Evangelista Carlson MD [Primary Care Provider] - Time of Disposition: 03:25
--- NOTE | 2024-06-29 03:01 | ECG_ITS ---
Test Date: 2024-06-29 03:21:52 Measurements Intervals [place] Rate: 101 P: 63 ME: 194 QRS: -72 QRSD: 143 T: 29 QT: 376 QTc: 489 Interpretive Statements SINUS TACHYCARDIA RIGHT BUNDLE BRANCH BLOCK LEFT ANTERIOR FASCICULAR BLOCK BASELINE ARTIFACT- I, II, III, AVR, AVL, AVF ABNORMAL ECG Compared to ECG 06/28/2024 23:42:31 NO SIGNIFICANT CHANGE Electronically Signed On 06-29-2024 06:37:36 CDT by Armond Castaneda D.O.
[2024-06-29] MEDS: HYDROcodone/acetaminophen (*CRX) 5-325 MG TABLET 1 TAB PO ×2 (03:33→17:18)
[2024-06-29 03:42] LABS: Troponin I < 0.012 ng/mL (0.000-0.034)
--- NOTE | 2024-06-29 03:54 | PC.NURSE ---
1st set of blood cultures obtained. 4 rn have attempted to collect 2nd set of blood cultures with no luck. EDP / ED Charge aware and Phlebotomy notified.
--- NOTE | 2024-06-29 04:00 | PC.NURSE ---
phlebotomy at bedside to attempt to collect 2nd set of blood cultures
--- NOTE | 2024-06-29 04:20 | PC.NURSE ---
Lab unable to get 2nd set of cultures. Per Dr Kim, ok to start abx without second set.
[2024-06-29] MEDS: AZITHROMYCIN 500 MG/NS 250 ML 500 MG/250 ML BAG 250 MG IVPB (05:38)
[2024-06-29] MEDS: metroNIDAZOLE 500 MG/ISO 100ML 500 MG/100 ML BAG 100 MG IVPB ×3 (05:38→20:45)
--- NOTE | 2024-06-29 05:42 | PM.IMHP ---
H&P: HPI History of Present Illness Date/Time: 06/29/24 05:42 Chief Complaint: Chest pain Narrative: This is a pleasant 84-year-old female brought to [facility] accompanied by her daughter whom she lives with with the complaint of 4 days of chest pain. Patient was recently discharged on 06/20/2024 with a new diagnosis of heart failure. At that time she reports she had chest pain and shortness of breath and this is very similar however has worsened. The pain is sharp over the right side of the chest and is worsened upon inspiration. She also reports a separate pain and her left shoulder which radiates towards her neck. She denies fever. Reports cough at night over the past few days as well. Denies vomiting. Evaluation in the ER demonstrates acceptable O2 saturation on room air. WBC 9.1. Sodium 133 similar to last admission. BNP 3220 down from 16,000. CTA chest perform did not demonstrate PE but shows evidence of pneumonia. Possible aspiration associated. Review of Systems Review of Systems: All systems reviewed & are unremarkable except as noted in HPI and below (HPI) [facility] Past Medical History Medical History Dermatitis Irritant contact dermatitis Self-catheterizes urinary bladder Left inguinal hernia Encounter for other specified surgical aftercare Incarcerated right inguinal hernia Partial small bowel obstruction Right inguinal hernia Lipoma of colon Hx of adenomatous colonic polyps Restless legs syndrome Acute blood loss anemia Hyponatremia Pneumoperitoneum Spleen laceration Constipation Bloating Belching symptom Diverticulosis Frequent UTI Memory loss Mild persistent asthma without complication Presbycusis, bilateral Pure hypercholesterolemia Unsteady gait Vitamin D deficiency Insomnia Anxiety Hypertension Asthma GERD (gastroesophageal reflux disease) Depression Surgical History Surgical History History of colonoscopy , complicated by splenic & injury per patient H/O inguinal hernia repair Robotic laparoscopic repair incarcerated right inguinal hernia, robotic laparoscopic repair left inguinal hernia, both repairs with mesh on 07/14 History of tubal ligation History of cholecystectomy Family History Family History Father Family history of transient ischemic attacks Patient's father is Cerebrovascular accident, Onset Age: 77 Sibling Family history of chronic obstructive pulmonary disease Family history of lung cancer Patient's brother is Mother Family history of transient ischemic attacks, Onset Age: 91 Other Family history of schizophrenia Social History Social History Social History: Surrogate medical decision maker: Che Emir or Steffany Bradshaw, daughters. Code status: Full code. Caffeine-none Smoking packs per day: 2 Smoking cigarettes per day: 40.0 Years smoked: 4 Smoking pack-years: 8.00 Smoking status: Former smoker Tobacco type: cigarettes Second hand tobacco smoke exposure: No Smoking end date: 03/09/87 Alcohol intake: never Substance use: never Substance use type: does not use Do You Feel Safe in your Home?: Yes Lack of Transportation: No Lack of Food: Never True Current Housing: I Have Housing Concerned About Future Housing: No Difficulty Paying Gas/Electric Bills: No Difficulty Paying for Meds: No Currently Unemployed: No Education: Master's Degree or Higher Difficulty w/ Childcare or Family Care: No Living arrangements: alone Spiritual care concerns: No Agree to blood products: Yes Meds Home Medications and Allergies Home Medications ?Medication ?Instructions ?Recorded ?Confirmed ?Type cholecalciferol (vitamin D3) 125 250 mcg PO DAILY 04/07/23 06/28/24 History mcg (5,000 unit) tablet (Vitamin D3) vit C 226 mg-vit E 90 mg-copper 1 cap PO BID 04/07/23 06/28/24 History 0.8 mg-zinc oxide-lutein 5 mg capsule (PreserVision Lutein) gabapentin 300 mg capsule 300 mg PO .COMPLEX 06/08/23 06/28/24 History livmcqxg-dwux-xkzw 8 mg-folic 400 1 tablet PO DAILY 07/10/23 06/28/24 History mcg-K 50 mcg-lutein 300 mcg tablet (Centrum Silver Women) memantine 10 mg tablet 10 mg PO DAILY #90 tabs 02/15/24 06/28/24 Rx potassium chloride 20 mEq See Rx Instructions .Route 02/24/24 06/28/24 Rx tablet,extended release(part/cryst) .COMPLEX #90 tabs trazodone 50 mg tablet See Rx Instructions .Route 05/23/24 06/28/24 Rx .COMPLEX #90 tabs clonazepam 0.5 mg tablet 0.5 mg PO HS #30 tabs 06/16/24 06/28/24 Rx bupropion HCl 150 mg tablet,12 hr 150 mg PO DAILY 06/18/24 06/28/24 History sustained-release linezolid 600 mg tablet 600 mg PO Q12HR #13 tabs 06/20/24 06/28/24 Rx metoprolol succinate 25 mg 25 mg PO DAILY #30 tabs 06/20/24 06/28/24 Rx tablet,extended release 24 hr pantoprazole 40 mg tablet,delayed 40 mg PO QAM #30 tabs 06/20/24 06/28/24 Rx release fluticasone furoate 100 1 inh inhalation DAILY 06/22/24 06/28/24 History mcg-vilanterol 25 mcg/dose inhalation powder (Breo Ellipta) furosemide 20 mg tablet 20 mg PO DAILY 06/22/24 06/28/24 History Allergies Allergy/AdvReac Type Severity Reaction Status Date / Time propoxyphene (From Darvon) Allergy Severe Swelling Verified 06/28/24 23:46 of Lip/Tongue/Throat donepezil (From Aricept) AdvReac Intermediate Abdominal Verified 06/28/24 23:46 Pain Vital Signs Vital Signs - 24 hr 06/28/24 23:32 06/28/24 23:39 06/28/24 23:40 Temperature 98.8 F Pulse Rate 104 H 102 H 103 H Respiratory Rate 19 24 H Blood Pressure 130/61 Pulse Oximetry 96 97 Oxygen Delivery Room Air 06/28/24 23:40 06/28/24 23:45 06/29/24 00:00 Temperature Pulse Rate 100 102 H Respiratory Rate 18 20 Blood Pressure Pulse Oximetry 94 95 93 Oxygen Delivery Room Air 06/29/24 00:11 06/29/24 00:15 06/29/24 00:16 Temperature Pulse Rate 101 H 99 99 Respiratory Rate 21 H 21 H 17 Blood Pressure 137/65 133/57 L Pulse Oximetry 100 95 95 Oxygen Delivery 06/29/24 00:30 06/29/24 00:31 06/29/24 00:45 Temperature Pulse Rate 100 99 100 Respiratory Rate 19 18 20 Blood Pressure 131/60 134/58 L Pulse Oximetry 96 96 97 Oxygen Delivery 06/29/24 00:46 06/29/24 01:00 06/29/24 01:01 Temperature Pulse Rate 99 105 H 105 H Respiratory Rate 19 20 18 Blood Pressure 143/71 H Pulse Oximetry 95 94 96 Oxygen Delivery 06/29/24 01:15 06/29/24 01:16 06/29/24 01:30 Temperature Pulse Rate 101 H 101 H 102 H Respiratory Rate 28 H 20 19 Blood Pressure 142/71 H 141/85 H Pulse Oximetry 96 97 Oxygen Delivery 06/29/24 01:31 06/29/24 01:45 06/29/24 01:46 Temperature Pulse Rate 100 118 H 103 H Respiratory Rate 16 18 24 H Blood Pressure 132/114 H Pulse Oximetry 96 98 97 Oxygen Delivery 06/29/24 01:49 06/29/24 02:00 06/29/24 02:01 Temperature Pulse Rate 103 H 102 H 105 H Respiratory Rate 25 H 19 18 Blood Pressure 142/81 H 138/65 Pulse Oximetry 97 96 91 Oxygen Delivery 06/29/24 02:24 06/29/24 02:25 06/29/24 02:30 Temperature Pulse Rate 100 103 H 103 H Respiratory Rate 22 H 25 H 18 Blood Pressure 123/82 136/83 Pulse Oximetry 96 97 92 Oxygen Delivery 06/29/24 02:31 06/29/24 02:45 06/29/24 02:46 Temperature Pulse Rate 100 102 H 107 H Respiratory Rate 22 H 17 20 Blood Pressure 138/69 Pulse Oximetry 93 92 92 Oxygen Delivery 06/29/24 03:00 06/29/24 03:15 06/29/24 05:15 Temperature Pulse Rate 102 H 102 H 98 Respiratory Rate 18 21 H 19 Blood Pressure 133/67 134/66 Pulse Oximetry 92 93 92 Oxygen Delivery 06/29/24 05:39 Temperature 98.1 F Pulse Rate 97 Respiratory Rate 16 Blood Pressure 115/51 L Pulse Oximetry 94 Oxygen Delivery Exam Const: General: comfortable and no acute distress HENMT: Mouth: Yes moist mucous membranes Eyes: Pupils: Equal, round and reactive pupils present Neck: Neck: supple Resp: Effort & Inspection: normal respiratory effort Auscultation: clear to auscultation bilaterally Cardio: Rate: regular rate Rhythm: regular rhythm GI: GI Palp: Yes Soft to palpation and No Tenderness to palpation present (GI) Neuro: Motor exam (neuro): 5/5 motor strength present throughout Extrem: General: no edema H&P: Results Labs Labs: Short CBC 06/28/24 Range/Units 23:51 WBC 9.1 (4.5-10.0) K/mm3 Hgb 12.8 (12.0-15.0) g/dL Hct 38.9 (37.0-47.0) % Plt Count 317 (150-375) k/mm3 BMP 06/28/24 23:51 Sodium 133 L Potassium 4.0 Chloride 98 Carbon Dioxide 25 BUN 14 Creatinine 0.91 Glucose 107 Calcium 8.6 Cardiac Enzymes 06/28/24 06/29/24 Range/Units 23:51 03:07 Troponin I < 0.012 < 0.012 (0.000-0.034) ng/mL Liver Function 06/28/24 Range/Units 23:51 Total Bilirubin 0.5 (0.2-1.3) mg/dL AST 18 (14-36) U/L ALT 15 (6-35) U/L Alkaline Phosphatase 160 H (38-126) U/L Albumin 3.6 (3.5-5.1) g/dL Urine 06/29/24 Range/Units 01:51 Urine Color Yellow (Yellow) Urine Appearance Clear (Clear) Urine pH 6.5 (5.0-9.0) Ur Specific [place] 1.013 (1.001-1.035) Urine Protein Negative (Negative) mg/dL Urine Glucose (UA) Negative (Negative) mg/dL Assessment and Plan Assessment and plan (1) Pneumonia: Code(s): J18.9 - Pneumonia, unspecified organism Status: Acute Plan This is a pleasant 84-year-old female brought to [place] [facility] accompanied by her daughter whom she lives with with the complaint of 4 days of chest pain. Patient was recently discharged on 06/20/2024 with a new diagnosis of heart failure. At that time she reports she had chest pain and shortness of breath and this is very similar however has worsened. The pain is sharp over the right side of the chest and is worsened upon inspiration. She also reports a separate pain and her left shoulder which radiates towards her neck. She denies fever. Reports cough at night over the past few days as well. Denies vomiting. Evaluation in the ER demonstrates acceptable O2 saturation on room air. WBC 9.1. Sodium 133 similar to last admission. BNP 3220 down from 16,000. CTA chest perform did not demonstrate PE but shows evidence of pneumonia. Possible aspiration associated. ----- Symptomatology improved status post ER treatment with azithromycin ceftriaxone [place] metronidazole and morphine. Blood cultures pending. Continue antibiotics. Pending official CT read. ----- Full code Hospitalist MIPS Advance Care Plan I have confirmed that the patient's Advanced Care Plan is present, code status is documented, or surrogate decision maker is listed in patient medical record.: Yes Medication Reconciliation I have utilized all available resources to obtain, update and review the patients current medications (includes all prescriptions, OTC, herbals, cannabis, and nutritional supplements).: Yes
--- NOTE | 2024-06-29 05:48 | ADMGEN ---
This patient, Lisa Tovar, was admitted to Medical Room 347-. Patient/family oriented to hospital policies and general routines including ID bracelet, bed and alarms, visiting hours, pain management, procedures, bathroom and other care routines, personal items, smoking policy, room service/diet, and visiting hours. Information on how to activate the Rapid Response Team has been discussed. Patient/Family are encouraged to report perceived risks to care and to ask questions if they do not understand what they are told or what they should do.
[2024-06-29 06:19] LABS: Troponin I < 0.012 ng/mL (0.000-0.034)
--- NOTE | 2024-06-29 09:01 | P.PNIM_ITS ---
Progress Note: A&P Assessment and Plan (1) Pneumonia: Code(s): J18.9 - Pneumonia, unspecified organism Status: Acute Plan This is a pleasant 84-year-old female brought to [place] ER accompanied by her daughter whom she lives with with the complaint of 4 days of chest pain. Patient was recently discharged on 06/20/2024 with a new diagnosis of heart failure. At that time she reports she had chest pain and shortness of breath and this is very similar however has worsened. The pain is sharp over the right side of the chest and is worsened upon inspiration. She also reports a separate pain and her left shoulder which radiates towards her neck. She denies fever. Reports cough at night over the past few days as well. Denies vomiting. Evaluation in the ER demonstrates acceptable O2 saturation on room air. WBC 9.1. Sodium 133 similar to last admission. BNP 3220 down from 16,000. CTA chest perform did not demonstrate PE but shows evidence of pneumonia. Possible aspiration associated. ----- Symptomatology improved status post ER treatment with azithromycin ceftriaxone [place] metronidazole and morphine. Blood cultures pending. Continue antibiotics. Pending official CT read. 06/29 -home meds resumed -SCD for DVT prophylaxis -will add lidocaine patc and tylenol prn -need to do IS and out of bed tid -pt/ot added Full code Time Spent With Patient Time with patient: 25 - 35 minutes Subjective Date/time seen: 06/29/24 09:01 Interval history: This is a pleasant 84-year-old female brought to [place] ER accompanied by her daughter whom she lives with with the complaint of 4 days of chest pain. Patient was recently discharged on 06/20/2024 with a new diagnosis of heart failure. At that time she reports she had chest pain and shortness of breath and this is very similar however has worsened. The pain is sharp over the right side of the chest and is worsened upon inspiration. She also reports a separate pain and her left shoulder which radiates towards her neck. She denies fever. Reports cough at night over the past few days as well. Denies vomiting. Evaluation in the ER demonstrates acceptable O2 saturation on room air. WBC 9.1. Sodium 133 similar to last admission. BNP 3220 down from 16,000. CTA chest perform did not demonstrate PE but shows evidence of pneumonia. Possible aspiration associated. Pt is seen and examined. She is comfortable in bed, still experience pain at times. NO sob. NO leg swelling. Daughter at bedside- updated. Review of Systems Review of Systems: All systems reviewed & are unremarkable except as noted in HPI and below (HPI) Exam Const: General: comfortable and no acute distress HENMT: Mouth: Yes moist mucous membranes Eyes: Pupils: Equal, round and reactive pupils present Neck: Neck: supple Resp: Effort & Inspection: normal respiratory effort Auscultation: clear to auscultation bilaterally Cardio: Rate: regular rate Rhythm: regular rhythm Neuro: Cranial nerves: Yes Equal, round and reactive pupils present Motor exam (neuro): 5/5 motor strength present throughout Extrem: General: no edema Objective Data Vital Signs Vital Signs: Vital Signs - 24 hr 06/28/24 23:32 06/28/24 23:39 06/28/24 23:40 Temperature 98.8 F Pulse Rate 104 H 102 H 103 H Respiratory Rate 19 24 H Blood Pressure 130/61 Pulse Oximetry 96 97 Oxygen Delivery Room Air 06/28/24 23:40 06/28/24 23:45 06/29/24 00:00 Temperature Pulse Rate 100 102 H Respiratory Rate 18 20 Blood Pressure Pulse Oximetry 94 95 93 Oxygen Delivery Room Air 06/29/24 00:11 06/29/24 00:15 06/29/24 00:16 Temperature Pulse Rate 101 H 99 99 Respiratory Rate 21 H 21 H 17 Blood Pressure 137/65 133/57 L Pulse Oximetry 100 95 95 Oxygen Delivery 06/29/24 00:30 06/29/24 00:31 06/29/24 00:45 Temperature Pulse Rate 100 99 100 Respiratory Rate 19 18 20 Blood Pressure 131/60 134/58 L Pulse Oximetry 96 96 97 Oxygen Delivery 06/29/24 00:46 06/29/24 01:00 06/29/24 01:01 Temperature Pulse Rate 99 105 H 105 H Respiratory Rate 19 20 18 Blood Pressure 143/71 H Pulse Oximetry 95 94 96 Oxygen Delivery 06/29/24 01:15 06/29/24 01:16 06/29/24 01:30 Temperature Pulse Rate 101 H 101 H 102 H Respiratory Rate 28 H 20 19 Blood Pressure 142/71 H 141/85 H Pulse Oximetry 96 97 Oxygen Delivery 06/29/24 01:31 06/29/24 01:45 06/29/24 01:46 Temperature Pulse Rate 100 118 H 103 H Respiratory Rate 16 18 24 H Blood Pressure 132/114 H Pulse Oximetry 96 98 97 Oxygen Delivery 06/29/24 01:49 06/29/24 02:00 06/29/24 02:01 Temperature Pulse Rate 103 H 102 H 105 H Respiratory Rate 25 H 19 18 Blood Pressure 142/81 H 138/65 Pulse Oximetry 97 96 91 Oxygen Delivery 06/29/24 02:24 06/29/24 02:25 06/29/24 02:30 Temperature Pulse Rate 100 103 H 103 H Respiratory Rate 22 H 25 H 18 Blood Pressure 123/82 136/83 Pulse Oximetry 96 97 92 Oxygen Delivery 06/29/24 02:31 06/29/24 02:45 06/29/24 02:46 Temperature Pulse Rate 100 102 H 107 H Respiratory Rate 22 H 17 20 Blood Pressure 138/69 Pulse Oximetry 93 92 92 Oxygen Delivery 06/29/24 03:00 06/29/24 03:15 06/29/24 05:15 Temperature Pulse Rate 102 H 102 H 98 Respiratory Rate 18 21 H 19 Blood Pressure 133/67 134/66 Pulse Oximetry 92 93 92 Oxygen Delivery 06/29/24 05:39 Temperature 98.1 F Pulse Rate 97 Respiratory Rate 16 Blood Pressure 115/51 L Pulse Oximetry 94 Oxygen Delivery Intake/Output Intake/Output: Intake & Output 06/26/24 06/27/24 06/28/24 06/29/24 23:59 23:59 23:59 23:59 Intake Total 150 Balance 150 Meds/Results Medications: Active Medications Generic Name Dose Route Start Last Admin Trade Name Freq PRN Reason Stop Dose Admin Hydrocodone Bitart/Acetaminophen 1 tab 06/29/24 03:21 06/29/24 03:33 Hydrocodone/Acetaminophen (*Crx) 5-325 Mg Tablet PO 1 tab Q4H PRN Administration Pain Rated 4-6 Ceftriaxone Sodium 1 gm in 50 mls @ 100 mls/hr 06/30/24 05:00 Rocephin 1 Gm/Ns 50 Ml IVPB Q24H RASHMI Azithromycin 500 mg in 250 mls @ 250 mls/hr 06/30/24 05:00 Zithromax IVPB Q24H RASHMI Metronidazole 500 mg in 100 mls @ 100 mls/hr 06/29/24 14:00 Flagyl 500 Mg/Iso Soln 100 Ml IVPB Q8HR RASHMI Morphine Sulfate 2 mg 06/29/24 03:21 Morphine Sulfate (*Crx) 2 Mg/Ml Inj IV PUSH Q2H PRN Pain Rated 7-10 Radiology Results: ITS Impressions Chest X-Ray 06/29/24 05:24 Impression: Small pleural effusions with minimal bibasilar pulmonary edema/atelectasis. Chest CTA 06/29/24 06:04 Impression: Moderate bilateral pleural effusions with bibasilar atelectasis. Small pericardial effusion. No pulmonary embolus. Labs Labs: Laboratory Results - last 24 hr 06/28/24 06/29/24 06/29/24 23:51 00:10 00:25 WBC 9.1 RBC 4.10 L Hgb 12.8 Hct 38.9 MCV 94.9 MCH 31.2 MCHC 32.9 RDW 13.8 Plt Count 317 MPV 9.5 Immature Gran % (Auto) 1.7 H Neut % (Auto) 76.7 H Lymph % (Auto) 11.1 L [place] % (Auto) 8.8 H Eos % (Auto) 1.0 Baso % (Auto) 0.7 Lymph # (Auto) 1.01 [place] # (Auto) 0.8 H Eos # (Auto) 0.1 Baso # (Auto) 0.1 Abs Immat Gran (auto) 0.15 H Absolute Neuts (auto) 7.0 H Absolute Nucleated RBC 0.000 Nucleated RBC % 0.0 PT 15.2 H INR 1.2 APTT 37.1 H Sodium 133 L Potassium 4.0 Chloride 98 Carbon Dioxide 25 Anion Gap 10 BUN 14 Creatinine 0.91 Estim Creat Clear Calc 35 Estimated GFR 59 Glucose 107 Lactic Acid 1.0 Calcium 8.6 Total Bilirubin 0.5 AST 18 ALT 15 Alkaline Phosphatase 160 H Troponin I < 0.012 NT-Pro-B Natriuret Pep 3220 H Total Protein 6.0 L Albumin 3.6 Procalcitonin 0.1 Urine Color Urine Appearance Urine pH Ur Specific [place] Urine Protein Urine Glucose (UA) Urine Ketones Ur Blood (Man) Urine Nitrate Urine Bilirubin Urine Urobilinogen Leukocyte Esterase Rfl Influenza A (RT-PCR) Negative Influenza B (RT-PCR) Negative RSV (RT-PCR) Negative SARS-CoV-2 RNA (RT-PCR) Negative 06/29/24 06/29/24 06/29/24 01:51 03:07 05:48 WBC RBC Hgb Hct MCV MCH MCHC RDW Plt Count MPV Immature Gran % (Auto) Neut % (Auto) Lymph % (Auto) [place] % (Auto) Eos % (Auto) Baso % (Auto) Lymph # (Auto) [place] # (Auto) Eos # (Auto) Baso # (Auto) Abs Immat Gran (auto) Absolute Neuts (auto) Absolute Nucleated RBC Nucleated RBC % PT INR APTT Sodium Potassium Chloride Carbon Dioxide Anion Gap BUN Creatinine Estim Creat Clear Calc Estimated GFR Glucose Lactic Acid Calcium Total Bilirubin AST ALT Alkaline Phosphatase Troponin I < 0.012 < 0.012 NT-Pro-B Natriuret Pep Total Protein Albumin Procalcitonin Urine Color Yellow Urine Appearance Clear Urine pH 6.5 Ur Specific [place] 1.013 Urine Protein Negative Urine Glucose (UA) Negative Urine Ketones Negative Ur Blood (Man) Negative Urine Nitrate Negative Urine Bilirubin Negative Urine Urobilinogen 0.2 Leukocyte Esterase Rfl Negative Influenza A (RT-PCR) Influenza B (RT-PCR) RSV (RT-PCR) SARS-CoV-2 RNA (RT-PCR) Quality VTE Prophylaxis VTE prophylaxis: mechanical ordered
[2024-06-29] MEDS: MEMANTINE 10 MG TABLET PO (10:07)
[2024-06-29] MEDS: buPROPion HCL SR (12 HR) 150 MG TAB PO (10:07)
[2024-06-29] MEDS: CHOLECALCIFEROL 5,000 UNITS TABLET 5000 UNITS BY MOUTH (10:07)
[2024-06-29] MEDS: PANTOPRAZOLE 40 MG TABLET PO (10:07)
[2024-06-29] MEDS: GABAPENTIN 300 MG CAPSULE PO ×2 (10:08→20:45)
[2024-06-29] MEDS: FUROSEMIDE 20 MG TABLET PO (10:08)
[2024-06-29] MEDS: MORPHINE SULFATE (*CRX) 2 MG/ML INJ IV PUSH (11:03)
[2024-06-29] MEDS: GABAPENTIN 300 MG CAPSULE 600 MG PO (17:17)
[2024-06-29] MEDS: clonazePAM (*CRX) 0.5 MG TABLET PO (20:45)
[2024-06-29] MEDS: traZODone HCL 50 MG TABLET BY MOUTH (20:51)
[2024-06-29] MEDS: FLUTICASONE/SALMETEROL 115-21 MCG INHALER 1 PUFF 2 PUFF INHALATION (21:12)
[2024-06-30] VITALS (15 sets, daily range): BP systolic 64–134; BP diastolic 34–57; PULSE 97–124; RESP 16–18; TEMP 36.4–36.7; O2SAT 93–96
[2024-06-30] MEDS: AZITHROMYCIN 500 MG/NS 250 ML 500 MG/250 ML BAG 250 MG IVPB (05:07)
[2024-06-30] MEDS: metroNIDAZOLE 500 MG/ISO 100ML 500 MG/100 ML BAG 100 MG IVPB ×3 (05:08→22:19)
[2024-06-30] MEDS: GABAPENTIN 300 MG CAPSULE PO ×2 (08:26→22:18)
[2024-06-30] MEDS: PANTOPRAZOLE 40 MG TABLET PO (08:26)
[2024-06-30] MEDS: CHOLECALCIFEROL 5,000 UNITS TABLET 5000 UNITS BY MOUTH (08:26)
[2024-06-30] MEDS: POTASSIUM CHLORIDE 20 MEQ ER TABLET PO (08:26)
[2024-06-30] MEDS: LIDOCAINE 5% PATCH 1 PATCH TRANSDERM (08:27)
[2024-06-30] MEDS: METOPROLOL SUCCINATE EXT REL 25 MG TABCR PO (08:27)
[2024-06-30] MEDS: buPROPion HCL SR (12 HR) 150 MG TAB PO (08:27)
[2024-06-30] MEDS: MEMANTINE 10 MG TABLET PO (08:27)
[2024-06-30] MEDS: FUROSEMIDE 20 MG TABLET PO (08:27)
[2024-06-30] MEDS: FLUTICASONE/SALMETEROL 115-21 MCG INHALER 1 PUFF 2 PUFF INHALATION ×2 (08:29→21:24)
--- NOTE | 2024-06-30 08:58 | PM.IMPN ---
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 Patient was recently discharged on 06/20/2024 with a new diagnosis of heart failure. At that time she reports she had chest pain and shortness of breath and this is very similar however has worsened. The pain is sharp over the right side of the chest and is worsened upon inspiration. She also reports a separate pain and her left shoulder which radiates towards her neck. She denies fever. Reports cough at night over the past few days as well. Denies vomiting. Recent hospitalization and new dx of CHF/diastolic dysfunction Evaluation in the ER demonstrates acceptable O2 saturation on room air. WBC 9.1. Sodium 133 similar to last admission. BNP 3220 down from 16,000. CTA chest perform did not demonstrate PE but shows evidence of pneumonia. Possible aspiration associated. ----- Symptomatology improved status post ER treatment with azithromycin ceftriaxone [place] metronidazole and morphine. Blood cultures pending. Continue antibiotics. Pending official CT read. 06/29 -home meds resumed -SCD for DVT prophylaxis -will add lidocaine patc and tylenol prn -need to do IS and out of bed tid -pt/ot added 06/30 - daily labs ordered PT/OT ordered- waiting for eval continue IS, ambulation with nursing continue metoprolol and will hold lasix for now as became hypotensive and orthostatic -was given 250 ml of IV fluids over an hour as bwky diagnosed CHF will place cardiology consult for re eval as still having intermittent chest pain Full code Time Spent With Patient Time with patient: 25 - 35 minutes Subjective Date/time seen: 06/30/24 08:58 Interval history: This is a pleasant 84-year-old female brought to [place] ER accompanied by her daughter whom she lives with with the complaint of 4 days of chest pain. Patient was recently discharged on 06/20/2024 with a new diagnosis of heart failure. At that time she reports she had chest pain and shortness of breath and this is very similar however has worsened. The pain is sharp over the right side of the chest and is worsened upon inspiration. She also reports a separate pain and her left shoulder which radiates towards her neck. She denies fever. Reports cough at night over the past few days as well. Denies vomiting. Evaluation in the ER demonstrates acceptable O2 saturation on room air. WBC 9.1. Sodium 133 similar to last admission. BNP 3220 down from 16,000. CTA chest perform did not demonstrate PE but shows evidence of pneumonia. Possible aspiration associated. Pt is seen and examined. PT/OT ordered yesterday-have not seen pt yet. VS reviewed. Pt was orthostatic earlier this morning when worked with PT/OT. Still having intermittent pain but now to the lt Review of Systems Review of Systems: All systems reviewed & are unremarkable except as noted in HPI and below (HPI) Exam Const: General: comfortable and no acute distress HENMT: Mouth: Yes moist mucous membranes Eyes: Pupils: Equal, round and reactive pupils present Neck: Neck: supple Resp: Effort & Inspection: normal respiratory effort Auscultation: clear to auscultation bilaterally Cardio: Rate: regular rate Rhythm: regular rhythm Neuro: Cranial nerves: Yes Equal, round and reactive pupils present Motor exam (neuro): 5/5 motor strength present throughout Extrem: General: no edema Objective Data Vital Signs Vital Signs: Vital Signs - 24 hr 06/29/24 12:05 06/29/24 14:00 06/29/24 16:00 Temperature 97.6 F Pulse Rate 101 H 105 H 108 H Respiratory Rate 18 Blood Pressure 116/63 Pulse Oximetry 92 Oxygen Delivery Fraction of Inspired Oxygen 06/29/24 20:00 06/29/24 20:00 06/29/24 21:16 Temperature Pulse Rate 99 90 Respiratory Rate 20 Blood Pressure Pulse Oximetry Oxygen Delivery Room Air Fraction of Inspired Oxygen 06/29/24 21:17 06/29/24 21:31 06/30/24 00:00 Temperature 97.8 F Pulse Rate 90 100 104 H Respiratory Rate 20 18 Blood Pressure 116/48 L Pulse Oximetry 94 92 Oxygen Delivery Room Air Fraction of Inspired Oxygen 21 06/30/24 04:00 06/30/24 05:45 06/30/24 08:27 Temperature 97.6 F Pulse Rate 98 102 H 124 H Respiratory Rate 16 Blood Pressure 118/50 L Pulse Oximetry 95 Oxygen Delivery Fraction of Inspired Oxygen 06/30/24 08:29 Temperature Pulse Rate Respiratory Rate Blood Pressure Pulse Oximetry 96 Oxygen Delivery Room Air Fraction of Inspired Oxygen Intake/Output Intake/Output: Intake & Output 06/27/24 06/28/24 06/29/24 06/30/24 23:59 23:59 23:59 23:59 Intake Total 1080 Balance 1080 Meds/Results Medications: Active Medications Generic Name Dose Route Start Last Admin Trade Name Freq PRN Reason Stop Dose Admin Acetaminophen 500 mg 06/29/24 15:41 Acetaminophen 500 Mg Tablet PO Q4H PRN Mild Pain (1-3) or Fever Hydrocodone Bitart/Acetaminophen 1 tab 06/29/24 03:21 06/29/24 17:18 Hydrocodone/Acetaminophen (*Crx) 5-325 Mg Tablet PO 1 tab Q4H PRN Administration Pain Rated 4-6 Bupropion HCl 150 mg 06/29/24 10:00 06/30/24 08:27 Bupropion Hcl Sr (12 Hr) 150 Mg Tab PO 150 mg DAILY RASHMI Administration Clonazepam 0.5 mg 06/29/24 21:00 06/29/24 20:45 Clonazepam (*Crx) 0.5 Mg Tablet PO 0.5 mg HS RASHMI Administration Furosemide 20 mg 06/29/24 09:00 06/30/24 08:27 Furosemide 20 Mg Tablet PO 20 mg DAILY RASHMI Administration Gabapentin 300 mg 06/29/24 09:05 06/30/24 08:26 Gabapentin 300 Mg Capsule PO 300 mg Q12HR RASHMI Administration Gabapentin 600 mg 06/29/24 18:00 06/29/24 17:17 Gabapentin 300 Mg Capsule PO 600 mg EVENING RASHMI Administration Ceftriaxone Sodium 1 gm in 50 mls @ 100 mls/hr 06/30/24 05:00 06/30/24 05:07 Rocephin 1 Gm/Ns 50 Ml IVPB 100 mls/hr Q24H RASHMI Administration Azithromycin 500 mg in 250 mls @ 250 mls/hr 06/30/24 05:00 06/30/24 05:07 Zithromax IVPB 250 mls/hr Q24H RASHMI Administration Metronidazole 500 mg in 100 mls @ 100 mls/hr 06/29/24 14:00 06/30/24 05:08 Flagyl 500 Mg/Iso Soln 100 Ml IVPB 100 mls/hr Q8HR RASHMI Administration Lidocaine 1 patch 06/30/24 09:00 06/30/24 08:27 Lidocaine 5% Patch TRANSDERM 1 patch DAILY RASHMI Administration Memantine 10 mg 06/29/24 09:00 06/30/24 08:27 Memantine 10 Mg Tablet PO 10 mg DAILY RASHMI Administration Metoprolol Succinate 25 mg 06/30/24 09:00 06/30/24 08:27 Metoprolol Succinate Ext Rel 25 Mg Tabcr PO 25 mg DAILY RASHMI Administration Morphine Sulfate 2 mg 06/29/24 03:21 06/29/24 11:03 Morphine Sulfate (*Crx) 2 Mg/Ml Inj IV PUSH 2 mg Q2H PRN Administration Pain Rated 7-10 Pantoprazole Sodium 40 mg 06/29/24 09:00 06/30/24 08:26 Pantoprazole 40 Mg Tablet PO 40 mg QAM RASHMI Administration Potassium Chloride 20 meq 06/30/24 09:00 06/30/24 08:26 Potassium Chloride 20 Meq Er Tablet PO 20 meq DAILY RASHMI Administration Fluticasone/Salmeterol 2 puff 06/29/24 20:00 06/30/24 08:29 Fluticasone/Salmeterol 115-21 Mcg Inhaler 1 Puff INHALATION 2 puff Q12HRT RASHMI Administration Trazodone HCl 50 mg 06/29/24 21:00 06/29/24 20:51 Trazodone Hcl 50 Mg Tablet BY MOUTH 50 mg HS PRN Administration Sleep Vitamin D 5,000 units 06/29/24 09:00 06/30/24 08:26 Cholecalciferol 5,000 Units Tablet BY MOUTH 5,000 units DAILY RASHMI Administration Radiology Results: ITS Impressions Chest X-Ray 06/29/24 05:24 Impression: Small pleural effusions with minimal bibasilar pulmonary edema/atelectasis. Chest CTA 06/29/24 06:04 Impression: Moderate bilateral pleural effusions with bibasilar atelectasis. Small pericardial effusion. No pulmonary embolus. Quality VTE Prophylaxis VTE prophylaxis: mechanical ordered
[2024-06-30 09:25] LABS: Hematocrit 40.8 % (37.0-47.0); Mean Corpuscular HGB Conc 31.9 g/dl (32-36); Mean Corpuscular Hemoglobin 31.6 pg (26-34); Mean Corpuscular Volume 99.3 fl (80-100); Mean Platelet Volume 9.3 fl (7.4-10.4); Platelet Count Result 256 k/mm3 (150-375); Red Blood Count 4.11 M/mm3 (4.2-5.4); White Blood Count 8.9 K/mm3 (4.5-10.0)
[2024-06-30 09:38] LABS: Anion Gap 13 mmol/L (4-12); Blood Urea Nitrogen 11 mg/dL (7-17); Calcium 8.5 mg/dL (8.4-10.2); Carbon Dioxide 23 mmol/L (22-30); Chloride 98 mmol/L (98-107); Estimated CRCL calculation 38 ml/min; Estimated Glomerular Filt Rate > 60; Glucose 92 mg/dL (65-110); Potassium 3.9 mmol/L (3.4-5.0); Sodium 134 mmol/L (137-145)
[2024-06-30] MEDS: SODIUM CHLORIDE 0.9% IV 250 ML IV CONT (11:06)
--- NOTE | 2024-06-30 13:39 | PM.IMPN ---
Progress Note: A&P Assessment and Plan (1) Pneumonia: Code(s): J18.9 - Pneumonia, unspecified organism Status: Acute (2) Orthostatic hypertension: Code(s): I10 - Essential (primary) hypertension Status: Acute (3) CHF (congestive heart failure): Qualifiers: Heart failure type: diastolic Heart failure chronicity: acute on chronic Qualified Code(s): I50.33 - Acute on chronic diastolic (congestive) heart failure Code(s): I50.9 - Heart failure, unspecified Status: Acute (4) Diastolic dysfunction: Code(s): I51.89 - Other ill-defined heart diseases Status: Acute (5) Shoulder pain: Code(s): M25.519 - Pain in unspecified shoulder Status: Acute Plan This is a pleasant 84-year-old female brought to [facility] accompanied by her daughter whom she lives with with the complaint of 4 days of chest pain. Patient was recently discharged on 06/20/2024 with a new diagnosis of heart failure. At that time she reports she had chest pain and shortness of breath and this is very similar however has worsened. The pain is sharp over the right side of the chest and is worsened upon inspiration. She also reports a separate pain and her left shoulder which radiates towards her neck. She denies fever. Reports cough at night over the past few days as well. Denies vomiting. Recent hospitalization and new dx of CHF/diastolic dysfunction Evaluation in the ER demonstrates acceptable O2 saturation on room air. WBC 9.1. Sodium 133 similar to last admission. BNP 3220 down from 16,000. CTA chest perform did not demonstrate PE but shows evidence of pneumonia. Possible aspiration associated. ----- Symptomatology improved status post ER treatment with azithromycin ceftriaxone [place] metronidazole and morphine. Blood cultures pending. Continue antibiotics. Pending official CT read. 06/29 -home meds resumed -SCD for DVT prophylaxis -will add lidocaine patc and tylenol prn -need to do IS and out of bed tid -pt/ot added 06/30 - daily labs ordered PT/OT ordered- waiting for eval continue IS, ambulation with nursing continue metoprolol and will hold lasix for now as became hypotensive and orthostatic -was given 250 ml of IV fluids over an hour as newly diagnosed CHF will place cardiology consult for re eval as still having intermittent chest pain Lt shoulder pain x 5-6 days no known trauma had been hurting progressively worse - will order xray to r/o trauma - low suspicion for trauma trauma vs arthritis vs other - will add toradol 15 mg iv prn - add voltaren gel to use topically Full code Time Spent With Patient Time with patient: 25 - 35 minutes Subjective Date/time seen: 06/30/24 13:39 Interval history: This is a pleasant 84-year-old female brought to [facility] accompanied by her daughter whom she lives with with the complaint of 4 days of chest pain. Patient was recently discharged on 06/20/2024 with a new diagnosis of heart failure. At that time she reports she had chest pain and shortness of breath and this is very similar however has worsened. The pain is sharp over the right side of the chest and is worsened upon inspiration. She also reports a separate pain and her left shoulder which radiates towards her neck. She denies fever. Reports cough at night over the past few days as well. Denies vomiting. Evaluation in the ER demonstrates acceptable O2 saturation on room air. WBC 9.1. Sodium 133 similar to last admission. BNP 3220 down from 16,000. CTA chest perform did not demonstrate PE but shows evidence of pneumonia. Possible aspiration associated. Pt is seen and examined. PT/OT ordered yesterday-have not seen pt yet. VS reviewed. Pt was orthostatic earlier this morning when worked with PT/OT. Still having intermittent pain but now to the lt shoulder. Had been going on for about 5-6 days, no known trauma. Review of Systems Review of Systems: lt shoulder pain All systems reviewed & are unremarkable except as noted in HPI and below (HPI) Exam Const: General: comfortable and no acute distress HENMT: Mouth: Yes moist mucous membranes Eyes: Pupils: Equal, round and reactive pupils present Neck: Neck: supple Resp: Effort & Inspection: normal respiratory effort Auscultation: clear to auscultation bilaterally Cardio: Rate: regular rate Rhythm: regular rhythm Neuro: Cranial nerves: Yes Equal, round and reactive pupils present Motor exam (neuro): 5/5 motor strength present throughout Extrem: General: no edema Objective Data Vital Signs Vital Signs: Vital Signs - 24 hr 06/29/24 14:00 06/29/24 16:00 06/29/24 20:00 Temperature 97.6 F Pulse Rate 105 H 108 H Respiratory Rate 18 Blood Pressure 116/63 Pulse Oximetry 92 Oxygen Delivery Room Air Fraction of Inspired Oxygen 06/29/24 20:00 06/29/24 21:16 06/29/24 21:17 Temperature Pulse Rate 99 90 90 Respiratory Rate 20 20 Blood Pressure Pulse Oximetry 94 Oxygen Delivery Room Air Fraction of Inspired Oxygen 21 06/29/24 21:31 06/30/24 00:00 06/30/24 04:00 Temperature 97.8 F Pulse Rate 100 104 H 98 Respiratory Rate 18 Blood Pressure 116/48 L Pulse Oximetry 92 Oxygen Delivery Fraction of Inspired Oxygen 06/30/24 05:45 06/30/24 08:05 06/30/24 08:27 Temperature 97.6 F Pulse Rate 102 H 113 H 124 H Respiratory Rate 16 Blood Pressure 118/50 L Pulse Oximetry 95 Oxygen Delivery Fraction of Inspired Oxygen 06/30/24 08:29 06/30/24 08:40 06/30/24 09:56 Temperature Pulse Rate Respiratory Rate Blood Pressure Pulse Oximetry 96 Oxygen Delivery Room Air Room Air Room Air Fraction of Inspired Oxygen 06/30/24 10:05 06/30/24 10:09 Temperature Pulse Rate 103 H Respiratory Rate Blood Pressure 64/34 L 102/46 L Pulse Oximetry Oxygen Delivery Fraction of Inspired Oxygen Intake/Output Intake/Output: Intake & Output 06/27/24 06/28/24 06/29/24 06/30/24 23:59 23:59 23:59 23:59 Intake Total 1080 360 Balance 1080 360 Meds/Results Medications: Active Medications Generic Name Dose Route Start Last Admin Trade Name Freq PRN Reason Stop Dose Admin Acetaminophen 500 mg 06/29/24 15:41 Acetaminophen 500 Mg Tablet PO Q4H PRN Mild Pain (1-3) or Fever Hydrocodone Bitart/Acetaminophen 1 tab 06/29/24 03:21 06/29/24 17:18 Hydrocodone/Acetaminophen (*Crx) 5-325 Mg Tablet PO 1 tab Q4H PRN Administration Pain Rated 4-6 Bupropion HCl 150 mg 06/29/24 10:00 06/30/24 08:27 Bupropion Hcl Sr (12 Hr) 150 Mg Tab PO 150 mg DAILY RASHMI Administration Clonazepam 0.5 mg 06/29/24 21:00 06/29/24 20:45 Clonazepam (*Crx) 0.5 Mg Tablet PO 0.5 mg HS RASHMI Administration Diclofenac Sodium 1 applic 06/30/24 17:00 Diclofenac Sodium 1% 100 Gm Gel (*Bkc) TOPICAL QID RASHMI Furosemide 20 mg 06/29/24 09:00 06/30/24 08:27 Furosemide 20 Mg Tablet PO 20 mg DAILY RASHMI Administration Gabapentin 300 mg 06/29/24 09:05 06/30/24 08:26 Gabapentin 300 Mg Capsule PO 300 mg Q12HR RASHMI Administration Gabapentin 600 mg 06/29/24 18:00 06/29/24 17:17 Gabapentin 300 Mg Capsule PO 600 mg EVENING RASHMI Administration Ceftriaxone Sodium 1 gm in 50 mls @ 100 mls/hr 06/30/24 05:00 06/30/24 05:07 Rocephin 1 Gm/Ns 50 Ml IVPB 100 mls/hr Q24H RASHMI Administration Azithromycin 500 mg in 250 mls @ 250 mls/hr 06/30/24 05:00 06/30/24 05:07 Zithromax IVPB 250 mls/hr Q24H RASHMI Administration Metronidazole 500 mg in 100 mls @ 100 mls/hr 06/29/24 14:00 06/30/24 05:08 Flagyl 500 Mg/Iso Soln 100 Ml IVPB 100 mls/hr Q8HR RASHMI Administration Ketorolac Tromethamine 15 mg 06/30/24 13:39 Ketorolac 15 Mg/Ml Vial (*Bkc) IV PUSH Q6H PRN Pain Rated 4-6 Lidocaine 1 patch 06/30/24 09:00 06/30/24 08:27 Lidocaine 5% Patch TRANSDERM 1 patch DAILY RASHMI Administration Memantine 10 mg 06/29/24 09:00 06/30/24 08:27 Memantine 10 Mg Tablet PO 10 mg DAILY RASHMI Administration Metoprolol Succinate 25 mg 06/30/24 09:00 06/30/24 08:27 Metoprolol Succinate Ext Rel 25 Mg Tabcr PO 25 mg DAILY RASHMI Administration Morphine Sulfate 2 mg 06/29/24 03:21 06/29/24 11:03 Morphine Sulfate (*Crx) 2 Mg/Ml Inj IV PUSH 2 mg Q2H PRN Administration Pain Rated 7-10 Pantoprazole Sodium 40 mg 06/29/24 09:00 06/30/24 08:26 Pantoprazole 40 Mg Tablet PO 40 mg QAM RASHMI Administration Potassium Chloride 20 meq 06/30/24 09:00 06/30/24 08:26 Potassium Chloride 20 Meq Er Tablet PO 20 meq DAILY RASHMI Administration Fluticasone/Salmeterol 2 puff 06/29/24 20:00 06/30/24 08:29 Fluticasone/Salmeterol 115-21 Mcg Inhaler 1 Puff INHALATION 2 puff Q12HRT RASHMI Administration Trazodone HCl 50 mg 06/29/24 21:00 06/29/24 20:51 Trazodone Hcl 50 Mg Tablet BY MOUTH 50 mg HS PRN Administration Sleep Vitamin D 5,000 units 06/29/24 09:00 06/30/24 08:26 Cholecalciferol 5,000 Units Tablet BY MOUTH 5,000 units DAILY RASHMI Administration Radiology Results: ITS Impressions Chest X-Ray 06/29/24 05:24 Impression: Small pleural effusions with minimal bibasilar pulmonary edema/atelectasis. Chest CTA 06/29/24 06:04 Impression: Moderate bilateral pleural effusions with bibasilar atelectasis. Small pericardial effusion. No pulmonary embolus. Labs Labs: Laboratory Results - last 24 hr 06/30/24 09:16 WBC 8.9 RBC 4.11 L Hgb 13.0 Hct 40.8 MCV 99.3 MCH 31.6 MCHC 31.9 L RDW 14.0 Plt Count 256 MPV 9.3 Sodium 134 L Potassium 3.9 Chloride 98 Carbon Dioxide 23 Anion Gap 13 H BUN 11 Creatinine 0.83 Estim Creat Clear Calc 38 Estimated GFR > 60 Glucose 92 Calcium 8.5 Quality VTE Prophylaxis VTE prophylaxis: mechanical ordered
[2024-06-30] MEDS: KETOROLAC 15 MG/ML VIAL (*BKC) IV PUSH (15:02)
--- NOTE | 2024-06-30 15:07 | P.CONCA_ITS ---
Assessment and Plan Assessment and plan (1) Chest pain: Code(s): R07.9 - Chest pain, unspecified Status: Acute Assessment and Plan: She has been r/o for [place] by serial troponin and EKG. Will need lexiscan myoview stress test as an outpatient, but not now given treatment for possible pneumonia. No further cardiac workup at this time. (2) Diastolic dysfunction: Code(s): I51.89 - Other ill-defined heart diseases Status: Acute Assessment and Plan: Euvolemic but does have some pleural effusions. Continue Lasix 20 mg daily. (3) Hypertension: Qualifiers: Hypertension type: essential hypertension Qualified Code(s): I10 - Essential (primary) hypertension Code(s): I10 - Essential (primary) hypertension Status: Acute Assessment and Plan: Stable. (4) Pneumonia: Code(s): J18.9 - Pneumonia, unspecified organism Status: Acute Assessment and Plan: On antibiotics. History of Present Illness History of Present Illness Consult date/time: 06/30/24 15:07 Reason For Visit: pneumonia, chest pain Narrative: 84 yr old woman who is my regular cardiology patient presents to ER with chest pain. She has a history of dementia, hypertension. Her daughter is at bedside. She was hospitalized on 06/18/24 for diastolic heart failure. She reports chest pain after taking a deep breath and left shoulder pain. She has been trying to drink 1.5 bottles of water a day. She was here a few weeks ago with UTI and dehydration. She does have to self-cath which she does 3 times a day for last 4 years. She is currently confused. Normally she lives alone and can walk a block. It was noted her HR was fast into 120 bpm in sinus tachycardia. Denies chest pain, orthopnea, PND, edema. Cardiovascular Procedures Echo/MUGA:: 06/20/24 Echo: EF 60-65%, grade I diastolic dysfunction (E/e' 10), mild MR/TR, trace PI, trace pericardial effusion, pleural effusion. Electrophysiology:: 06/18/24 EKG: Sinus tachycardia at 108 bpm, frequent PAC's, RBBB, inferior infarct, age indeterminate. Review of Systems 2 Review of Systems: All systems reviewed & are unremarkable except as noted in HPI and below Constitutional: Constitutional: Reports as per HPI, Denies chills and Denies fever(s) Cardiovascular: Cardiovascular: Reports as per HPI and Reports chest pain Respiratory: Respiratory: Reports as per HPI and Reports dyspnea Gastrointestinal: Gastrointestinal: Reports as per HPI and Denies abdominal pain Genitourinary: Genitourinary: Reports as per HPI Musculoskeletal: Musculoskeletal: Reports as per HPI and Reports arthralgias Neurologic: Reports as per HPI, Denies dizziness and Denies syncope [facility] Past Medical History Medical History Dermatitis Irritant contact dermatitis Self-catheterizes urinary bladder Left inguinal hernia Encounter for other specified surgical aftercare Incarcerated right inguinal hernia Partial small bowel obstruction Right inguinal hernia Lipoma of colon Hx of adenomatous colonic polyps Restless legs syndrome Acute blood loss anemia Hyponatremia Pneumoperitoneum Spleen laceration Constipation Bloating Belching symptom Diverticulosis Frequent UTI Memory loss Mild persistent asthma without complication Presbycusis, bilateral Pure hypercholesterolemia Unsteady gait Vitamin D deficiency Insomnia Anxiety Hypertension Asthma GERD (gastroesophageal reflux disease) Depression Surgical History Surgical History History of colonoscopy , complicated by splenic & injury per patient H/O inguinal hernia repair Robotic laparoscopic repair incarcerated right inguinal hernia, robotic laparoscopic repair left inguinal hernia, both repairs with mesh on 07/14 History of tubal ligation History of cholecystectomy Family History Family History Father Family history of transient ischemic attacks Patient's father is Cerebrovascular accident, Onset Age: 77 Sibling Family history of chronic obstructive pulmonary disease Family history of lung cancer Patient's brother is Mother Family history of transient ischemic attacks, Onset Age: 91 Other Family history of schizophrenia Social History Social History Social History: Surrogate medical decision maker: Che Field or Steffany Leeann, daughters. Code status: Full code. Caffeine-none Smoking packs per day: 2 Smoking cigarettes per day: 40.0 Years smoked: 4 Smoking pack-years: 8.00 Smoking status: Former smoker Second hand tobacco smoke exposure: No Alcohol intake: former Substance use: never Substance use type: does not use Do You Feel Safe in your Home?: Yes Lack of Transportation: No Lack of Food: Never True Current Housing: I Have Housing Concerned About Future Housing: No Difficulty Paying Gas/Electric Bills: No Difficulty Paying for Meds: No Currently Unemployed: No Education: Master's Degree or Higher Difficulty w/ Childcare or Family Care: No Living arrangements: alone Spiritual care concerns: No Agree to blood products: Yes Meds Home Medications and Allergies Home Medications ?Medication ?Instructions ?Recorded ?Confirmed ?Type cholecalciferol (vitamin D3) 125 250 mcg PO DAILY 04/07/23 06/28/24 History mcg (5,000 unit) tablet (Vitamin D3) vit C 226 mg-vit E 90 mg-copper 1 cap PO BID 04/07/23 06/28/24 History 0.8 mg-zinc oxide-lutein 5 mg capsule (PreserVision Lutein) gabapentin 300 mg capsule 300 mg PO .COMPLEX 06/08/23 06/28/24 History fpfoocjn-iqnv-wlqj 8 mg-folic 400 1 tablet PO DAILY 07/10/23 06/28/24 History mcg-K 50 mcg-lutein 300 mcg tablet (Centrum Silver Women) memantine 10 mg tablet 10 mg PO DAILY #90 tabs 02/15/24 06/28/24 Rx potassium chloride 20 mEq See Rx Instructions .Route 02/24/24 06/28/24 Rx tablet,extended release(part/cryst) .COMPLEX #90 tabs trazodone 50 mg tablet See Rx Instructions .Route 05/23/24 06/28/24 Rx .COMPLEX #90 tabs clonazepam 0.5 mg tablet 0.5 mg PO HS #30 tabs 06/16/24 06/28/24 Rx bupropion HCl 150 mg tablet,12 hr 150 mg PO DAILY 06/18/24 06/28/24 History sustained-release linezolid 600 mg tablet 600 mg PO Q12HR #13 tabs 06/20/24 06/28/24 Rx metoprolol succinate 25 mg 25 mg PO DAILY #30 tabs 06/20/24 06/28/24 Rx tablet,extended release 24 hr pantoprazole 40 mg tablet,delayed 40 mg PO QAM #30 tabs 06/20/24 06/28/24 Rx release fluticasone furoate 100 1 inh inhalation DAILY 06/22/24 06/28/24 History mcg-vilanterol 25 mcg/dose inhalation powder (Breo Ellipta) furosemide 20 mg tablet 20 mg PO DAILY 06/22/24 06/28/24 History Allergies Allergy/AdvReac Type Severity Reaction Status Date / Time propoxyphene (From Darvon) Allergy Severe Swelling Verified 06/28/24 23:46 of Lip/Tongue/Throat donepezil (From Aricept) AdvReac Intermediate Abdominal Verified 06/28/24 23:46 Pain Vital Signs Vital Signs - 24 hr 06/29/24 16:00 06/29/24 20:00 06/29/24 20:00 Temperature Pulse Rate 108 H 99 Respiratory Rate Blood Pressure Pulse Oximetry Oxygen Delivery Room Air Fraction of Inspired Oxygen 06/29/24 21:16 06/29/24 21:17 06/29/24 21:31 Temperature 97.8 F Pulse Rate 90 90 100 Respiratory Rate 20 20 18 Blood Pressure 116/48 L Pulse Oximetry 94 92 Oxygen Delivery Room Air Fraction of Inspired Oxygen 21 06/30/24 00:00 06/30/24 04:00 06/30/24 05:45 Temperature 97.6 F Pulse Rate 104 H 98 102 H Respiratory Rate 16 Blood Pressure 118/50 L Pulse Oximetry 95 Oxygen Delivery Fraction of Inspired Oxygen 06/30/24 08:05 06/30/24 08:27 06/30/24 08:29 Temperature Pulse Rate 113 H 124 H Respiratory Rate Blood Pressure Pulse Oximetry 96 Oxygen Delivery Room Air Fraction of Inspired Oxygen 06/30/24 08:40 06/30/24 09:56 06/30/24 10:05 Temperature Pulse Rate 103 H Respiratory Rate Blood Pressure 64/34 L Pulse Oximetry Oxygen Delivery Room Air Room Air Fraction of Inspired Oxygen 06/30/24 10:09 06/30/24 12:00 06/30/24 14:00 Temperature 98.0 F Pulse Rate 107 H 108 H Respiratory Rate 18 Blood Pressure 102/46 L 134/57 L Pulse Oximetry 94 Oxygen Delivery Fraction of Inspired Oxygen Exam 2 Const: General: cooperative, healthy appearing and comfortable Resp: Auscultation: clear to auscultation bilaterally, no crackles, no rales, no rhonchi and no wheezes Cardio: Rate: regular rate Rhythm: regular rhythm Heart sounds: no murmurs Peripheral pulses: dorsalis pedis present GI: GI Palp: No abdominal tenderness and Yes Soft to palpation Neuro: General: oriented to person, oriented to place and oriented to time Extrem: Right lower extremity: no edema Left lower extremity: no edema Results Labs and Meds 06/30/24 09:16 06/30/24 09:16 Lab results: CBC 06/30/24 Range/Units 09:16 WBC 8.9 (4.5-10.0) K/mm3 RBC 4.11 L (4.2-5.4) M/mm3 Hgb 13.0 (12.0-15.0) g/dL Hct 40.8 (37.0-47.0) % Plt Count 256 (150-375) k/mm3 Comprehensive Metabolic Panel 06/30/24 Range/Units 09:16 Sodium 134 L (137-145) mmol/L Potassium 3.9 (3.4-5.0) mmol/L Chloride 98 (98-107) mmol/L Carbon Dioxide 23 (22-30) mmol/L BUN 11 (7-17) mg/dL Creatinine 0.83 (0.7-1.0) mg/dL Glucose 92 (65-110) mg/dL Calcium 8.5 (8.4-10.2) mg/dL Intake and Output 06/29/24 06/30/24 06/30/24 23:59 07:59 15:59 Intake Total 340 100 360 Balance 340 100 360 Intake: IV 100 100 metroNIDAZOLE 500 MG/ISO 100ML 100 100 500 mg In 100 ml @ 100 mls/hr IVPB Q8HR [facility] Rx#:[id number] Oral 240 360 Other: # Unmeasured Voids 5
[2024-06-30] MEDS: GABAPENTIN 300 MG CAPSULE 600 MG PO (17:32)
[2024-06-30] MEDS: clonazePAM (*CRX) 0.5 MG TABLET PO (22:18)
[2024-07-01] VITALS (12 sets, daily range): BP systolic 115–127; BP diastolic 48–88; PULSE 82–120; RESP 16–19; TEMP 36.6–36.7; O2SAT 92–95
--- NOTE | 2024-07-01 | EST_ITS ---
Patient Info Name: Lisa Tovar Age: 84 years : 1940 Gender: Female Ht: 65 in Wt: 136 lbs BSA: 1.69 m2 HR: 104 bpm BP: 140 / 74 mmHg Exam Date: 07/01/2024 11:30 AM Exam Location: Echo Lab Patient Status: Inpatient Admit Date: 06/30/2024 Staff Ordering Physician: Armond Castaneda DO Attending Provider: Ni Tinoco APRN Exercise Technologist: Jordyn De Leon RDCS Exercise Physician: Armond Castaneda DO Exam Type: CA stress latrice w NM Study Info A regadenoson stress test was performed. Summary 1. 1. Negative lexiscan stress test for ischemic ST changes by ECG criteria. 2. 2. Stable hemodynamics throughout the test. 3. 3. Nuclear scan to follow and will be reported separately. Please correlate with it. 4. 4. Patient informed of the above results. Protocol: Lexiscan Stress ECG Details Stage: REST Duration (min): 1 min : 0 sec HR (bpm): 105 SBP (mmHg): 140 DBP (mmHg): 74 Stage: REST Duration (min): 7 min : 27 sec HR (bpm): 101 SBP (mmHg): 140 DBP (mmHg): 74 Stage: STAGE 1 Duration (min): 0 min : 59 sec HR (bpm): 109 SBP (mmHg): 142 DBP (mmHg): 74 Stage: RECOVERY Duration (min): 1 min : 0 sec HR (bpm): 114 SBP (mmHg): 142 DBP (mmHg): 74 Stage: RECOVERY Duration (min): 2 min : 0 sec HR (bpm): 114 SBP (mmHg): 142 DBP (mmHg): 74 Stage: RECOVERY Duration (min): 3 min : 0 sec HR (bpm): 114 SBP (mmHg): 140 DBP (mmHg): 56 Stage: RECOVERY Duration (min): 4 min : 0 sec HR (bpm): 114 SBP (mmHg): 140 DBP (mmHg): 56 Stage: RECOVERY Duration (min): 5 min : 0 sec HR (bpm): 114 SBP (mmHg): 137 DBP (mmHg): 58 Stage: RECOVERY Duration (min): 6 min : 0 sec HR (bpm): 120 SBP (mmHg): 137 DBP (mmHg): 58 Stage: RECOVERY Duration (min): 7 min : 0 sec HR (bpm): 125 SBP (mmHg): 137 DBP (mmHg): 58 Stage: RECOVERY Duration (min): 8 min : 0 sec HR (bpm): 126 SBP (mmHg): 137 DBP (mmHg): 58 Stage: RECOVERY Duration (min): 9 min : 0 sec HR (bpm): 124 SBP (mmHg): 137 DBP (mmHg): 58 Stage: RECOVERY Duration (min): 9 min : 3 sec HR (bpm): 125 SBP (mmHg): 137 DBP (mmHg): 58 Rest HR: 101 bpm Peak HR: 130 bpm Rest Sys BP: 140 mmHg Peak Sys BP: 142 mmHg Max Pred HR: 134 bpm % Max Pred HR: 97 % Target HR: 114 bpm Max RPP: 18,460 bpm*mmHg Termination Reason: Completed protocol Cardiac Symptoms: Shortness of breath Total Time: 1 min : 0 sec Rest Moses BP: 74 mmHg Peak Moses BP: 74 mmHg Total Dose: 0.4 mg Resting ECG Sinus rhythm, RBBB. Stress ECG No ST changes. Arrhythmias None. Report Signatures
[2024-07-01] MEDS: HYDROcodone/acetaminophen (*CRX) 5-325 MG TABLET 1 TAB PO ×2 (03:54→12:26)
[2024-07-01] MEDS: AZITHROMYCIN 500 MG/NS 250 ML 500 MG/250 ML BAG 250 MG IVPB (05:42)
[2024-07-01] MEDS: metroNIDAZOLE 500 MG/ISO 100ML 500 MG/100 ML BAG 100 MG IVPB ×3 (05:42→20:48)
--- NOTE | 2024-07-01 08:04 | P.PNCA_ITS ---
Progress Note: A&P Assessment and Plan (1) Chest pain: Code(s): R07.9 - Chest pain, unspecified Status: Acute Assessment and Plan: She has been r/o for [place] by serial troponin and EKG. Obtain lexiscan myoview stress test. (2) Diastolic dysfunction: Code(s): I51.89 - Other ill-defined heart diseases Status: Acute Assessment and Plan: Euvolemic but does have some pleural effusions. Increase Lasix 20 mg BID for mod pleural effusions. (3) Hypertension: Qualifiers: Hypertension type: essential hypertension Qualified Code(s): I10 - Essential (primary) hypertension Code(s): I10 - Essential (primary) hypertension Status: Acute Assessment and Plan: Stable. (4) Pneumonia: Code(s): J18.9 - Pneumonia, unspecified organism Status: Acute Assessment and Plan: On antibiotics. Subjective Date/time seen: 07/01/24 08:04 Interval history: Patient continues to have left shoulder pain and inspirator left chest pain. No sob. Exam Const: General: cooperative, healthy appearing and comfortable Orientation /consciousness: oriented to person, oriented to place and oriented to time Resp: Auscultation: clear to auscultation bilaterally, no crackles, no rales, no rhonchi and no wheezes Cardio: Rate: regular rate Rhythm: regular rhythm Heart sounds: no murmurs Peripheral pulses: dorsalis pedis present Neuro: General: oriented to person, oriented to place and oriented to time Extrem: Right lower extremity: no edema Left lower extremity: no edema Objective Data Vital Signs Vital Signs: Vital Signs - 24 hr 06/30/24 08:05 06/30/24 08:27 06/30/24 08:29 Temperature Pulse Rate 113 H 124 H Respiratory Rate Blood Pressure Pulse Oximetry 96 Oxygen Delivery Room Air 06/30/24 08:40 06/30/24 09:56 06/30/24 10:05 Temperature Pulse Rate 103 H Respiratory Rate Blood Pressure 64/34 L Pulse Oximetry Oxygen Delivery Room Air Room Air 06/30/24 10:09 06/30/24 12:00 06/30/24 14:00 Temperature 98.0 F Pulse Rate 107 H 108 H Respiratory Rate 18 Blood Pressure 102/46 L 134/57 L Pulse Oximetry 94 Oxygen Delivery 06/30/24 16:04 06/30/24 20:00 06/30/24 20:00 Temperature Pulse Rate 110 H 100 Respiratory Rate Blood Pressure Pulse Oximetry Oxygen Delivery Room Air 06/30/24 21:24 06/30/24 21:29 06/30/24 22:00 Temperature 97.9 F Pulse Rate 98 98 97 Respiratory Rate 16 16 18 Blood Pressure 119/54 L Pulse Oximetry 93 Oxygen Delivery 07/01/24 00:00 07/01/24 04:00 07/01/24 05:50 Temperature 97.8 F Pulse Rate 100 100 104 H Respiratory Rate 16 Blood Pressure 127/48 L Pulse Oximetry 94 Oxygen Delivery Intake/Output Intake/Output: Intake & Output 06/28/24 06/29/24 06/30/24 07/01/24 23:59 23:59 23:59 23:59 Intake Total 1080 1610 400 Output Total 425 250 Balance 1080 1185 150 Meds/Results Medications: Active Medications Generic Name Dose Route Start Last Admin Trade Name Freq PRN Reason Stop Dose Admin Acetaminophen 500 mg 06/29/24 15:41 Acetaminophen 500 Mg Tablet PO Q4H PRN Mild Pain (1-3) or Fever Hydrocodone Bitart/Acetaminophen 1 tab 06/29/24 03:21 07/01/24 03:54 Hydrocodone/Acetaminophen (*Crx) 5-325 Mg Tablet PO 1 tab Q4H PRN Administration Pain Rated 4-6 Bupropion HCl 150 mg 06/29/24 10:00 06/30/24 08:27 Bupropion Hcl Sr (12 Hr) 150 Mg Tab PO 150 mg DAILY RASHMI Administration Clonazepam 0.5 mg 06/29/24 21:00 06/30/24 22:18 Clonazepam (*Crx) 0.5 Mg Tablet PO 0.5 mg HS RASHMI Administration Diclofenac Sodium 1 applic 06/30/24 17:00 06/30/24 22:23 Diclofenac Sodium 1% 100 Gm Gel (*Bkc) TOPICAL Not Given QID RASHMI Furosemide 20 mg 07/01/24 09:00 Furosemide 20 Mg Tablet PO BID RASHMI Gabapentin 300 mg 06/29/24 09:05 06/30/24 22:18 Gabapentin 300 Mg Capsule PO 300 mg Q12HR RASHMI Administration Gabapentin 600 mg 06/29/24 18:00 06/30/24 17:32 Gabapentin 300 Mg Capsule PO 600 mg EVENING RASHMI Administration Ceftriaxone Sodium 1 gm in 50 mls @ 100 mls/hr 06/30/24 05:00 07/01/24 06:15 Rocephin 1 Gm/Ns 50 Ml IVPB Infused Q24H RASHMI Infusion Azithromycin 500 mg in 250 mls @ 250 mls/hr 06/30/24 05:00 07/01/24 06:51 Zithromax IVPB Infused Q24H RASHMI Infusion Metronidazole 500 mg in 100 mls @ 100 mls/hr 06/29/24 14:00 07/01/24 06:45 Flagyl 500 Mg/Iso Soln 100 Ml IVPB Infused Q8HR RASHMI Infusion Ketorolac Tromethamine 15 mg 06/30/24 13:39 06/30/24 15:02 Ketorolac 15 Mg/Ml Vial (*Bkc) IV PUSH 15 mg Q6H PRN Administration Pain Rated 4-6 Lidocaine 1 patch 06/30/24 09:00 06/30/24 08:27 Lidocaine 5% Patch TRANSDERM 1 patch DAILY RASHMI Administration Memantine 10 mg 06/29/24 09:00 06/30/24 08:27 Memantine 10 Mg Tablet PO 10 mg DAILY RASHMI Administration Metoprolol Succinate 25 mg 06/30/24 09:00 06/30/24 08:27 Metoprolol Succinate Ext Rel 25 Mg Tabcr PO 25 mg DAILY RASHMI Administration Morphine Sulfate 2 mg 06/29/24 03:21 06/29/24 11:03 Morphine Sulfate (*Crx) 2 Mg/Ml Inj IV PUSH 2 mg Q2H PRN Administration Pain Rated 7-10 Pantoprazole Sodium 40 mg 06/29/24 09:00 06/30/24 08:26 Pantoprazole 40 Mg Tablet PO 40 mg QAM RASHMI Administration Potassium Chloride 20 meq 06/30/24 09:00 06/30/24 08:26 Potassium Chloride 20 Meq Er Tablet PO 20 meq DAILY RASHMI Administration Fluticasone/Salmeterol 2 puff 06/29/24 20:00 06/30/24 21:24 Fluticasone/Salmeterol 115-21 Mcg Inhaler 1 Puff INHALATION 2 puff Q12HRT RASHMI Administration Trazodone HCl 50 mg 06/29/24 21:00 06/29/24 20:51 Trazodone Hcl 50 Mg Tablet BY MOUTH 50 mg HS PRN Administration Sleep Vitamin D 5,000 units 06/29/24 09:00 06/30/24 08:26 Cholecalciferol 5,000 Units Tablet BY MOUTH 5,000 units DAILY RASHMI Administration Radiology Results: ITS Impressions Chest X-Ray 06/29/24 05:24 Impression: Small pleural effusions with minimal bibasilar pulmonary edema/atelectasis. Chest CTA 06/29/24 06:04 Impression: Moderate bilateral pleural effusions with bibasilar atelectasis. Small pericardial effusion. No pulmonary embolus. Shoulder X-Ray 06/30/24 15:09 IMPRESSION: No acute fracture or anterior dislocation. Moderate left-sided pleural effusion, unchanged from CTA of the chest performed 24 hours earlier Labs Labs: Laboratory Results - last 24 hr 06/30/24 09:16 WBC 8.9 RBC 4.11 L Hgb 13.0 Hct 40.8 MCV 99.3 MCH 31.6 MCHC 31.9 L RDW 14.0 Plt Count 256 MPV 9.3 Sodium 134 L Potassium 3.9 Chloride 98 Carbon Dioxide 23 Anion Gap 13 H BUN 11 Creatinine 0.83 Estim Creat Clear Calc 38 Estimated GFR > 60 Glucose 92 Calcium 8.5
[2024-07-01] MEDS: FLUTICASONE/SALMETEROL 115-21 MCG INHALER 1 PUFF 2 PUFF INHALATION ×2 (08:35→19:55)
[2024-07-01] MEDS: MEMANTINE 10 MG TABLET PO (12:27)
[2024-07-01] MEDS: POTASSIUM CHLORIDE 20 MEQ ER TABLET PO (12:27)
[2024-07-01] MEDS: GABAPENTIN 300 MG CAPSULE PO ×2 (12:27→20:46)
[2024-07-01] MEDS: buPROPion HCL SR (12 HR) 150 MG TAB PO (12:27)
[2024-07-01] MEDS: CHOLECALCIFEROL 5,000 UNITS TABLET 5000 UNITS BY MOUTH (12:28)
[2024-07-01] MEDS: PANTOPRAZOLE 40 MG TABLET PO (12:28)
[2024-07-01] MEDS: METOPROLOL SUCCINATE EXT REL 25 MG TABCR PO (12:28)
[2024-07-01] MEDS: LIDOCAINE 5% PATCH 1 PATCH TRANSDERM (12:29)
[2024-07-01] MEDS: DICLOFENAC SODIUM 1% 100 GM GEL (*BKC) 1 APPLIC TOPICAL ×3 (12:29→17:12)
--- NOTE | 2024-07-01 13:22 | P.PNIM_ITS ---
Progress Note: A&P Assessment and Plan (1) Chest pain: Qualifiers: Chest pain type: unspecified Qualified Code(s): R07.9 - Chest pain, unspecified Code(s): R07.9 - Chest pain, unspecified Status: Acute Assessment and Plan: Patient was admitted for evaluation of reported chest pain and shortness of breath which is radiating from left shoulder to her neck patient had recently been diagnosed with diastolic heart failure intubated back on 06/21/2019. CTA perform was negative for PE but was suggestive pneumonia and bilateral small pleural effusions cardiology was consulted and plans for stress test. BP had significantly improved from previous admission appeared euvolemic. Patient serial troponin that were negative no ST/T changes on her EKGs. Patient has had complaints of shoulder pain progressively getting worse but no pain with movement potentially pleuritic pain improved with Toradol could be underlying cause. * Lexiscan: * continuous cardiac monitoring * consider adding Imdur * Continue metoprolol (2) Pneumonia: Code(s): J18.9 - Pneumonia, unspecified organism Status: Acute Assessment and Plan: CTA without PT did was not evidence of pneumonia * Continue azithromycin and ceftriaxone * Oxygen PRN currently on RA * Incentive spirometer (3) CHF (congestive heart failure): Qualifiers: Heart failure chronicity: acute on chronic Heart failure type: diastolic Qualified Code(s): I50.33 - Acute on chronic diastolic (congestive) heart failure Code(s): I50.9 - Heart failure, unspecified Status: Acute Assessment and Plan: Patient recently diastolic heart failure on 05/30/2024 echo showing EF 50-60%, and mild MR. BNP significantly improved from previous admission 1600 * Cardiology has been consulted appreciate any recommendations * Able fully make but will continue cardiology's recommendation 20 mg Lasix p.o. b.i.d. patient has had episodes of soft BP * Continued her metoprolol * Strict I&Os * BUN/creatinine * daily weights * keep K+ >4.0 mag > 2.0 (4) Shoulder pain: Code(s): M25.519 - Pain in unspecified shoulder Status: Acute Assessment and Plan: Lt shoulder pain x 5-6 days, no known trauma had been hurting progressively worse Xray with no fracture. Does follow with Dr. Vizcaino with orthopedics for hip pain can f/u outpatient for further evaluation. * continue toradol 15 mg iv prn * continue voltaren gel to use topically * added lidocaine patch (5) Hypertension: Qualifiers: Hypertension type: essential hypertension Qualified Code(s): I10 - Essential (primary) hypertension Code(s): I10 - Essential (primary) hypertension Status: Acute Assessment and Plan: * Resume patient's metoprolol and Lasix as BP is tolerating monitor for hypotension patient with previous episode (6) Hypotension: Code(s): I95.9 - Hypotension, unspecified Status: Acute Assessment and Plan: Patient had episode of hypotension likely over diuresis received 250 ML NS and her Lasix and metoprolol were held and she responded to bolus BP stable * Monitor BP per unit protocol Plan Code status: Full code per patient DVT prophylaxis: SCD Stress ulcer prophylaxis: Protonix 40 daily PT/OT notes: Home with home health Disposition: Patient continues admission for Chest pain, pneumonia and bilateral pleural effusions. Stress test negative. Resumed Lasix 20mg BID and gave Toradol can likely discharge to home with home health and daughter. Time Spent With Patient Time with patient: 15 - 25 minutes Subjective Date/time seen: 07/01/24 13:22 Interval history: Patient is an 84-year-old female who was admitted further evaluation treatment chest pain, shortness a breath left shoulder pain in [place] possible pneumonia. 07/01/24: Patient still reporting CP with inspiration does improve or worsen with movement. Stress test was normal. Patient did report some constipation but otherwise no other complaints. She had no pain with movement to the left shoulder likely pleuritic pain. Review of Systems Review of Systems: All systems reviewed & are unremarkable except as noted in HPI and below Objective Data Vital Signs Vital Signs: Vital Signs - 24 hr 06/30/24 14:00 06/30/24 16:04 06/30/24 20:00 Temperature 98.0 F Pulse Rate 108 H 110 H Respiratory Rate 18 Blood Pressure 134/57 L Pulse Oximetry 94 Oxygen Delivery Room Air 06/30/24 20:00 06/30/24 21:24 06/30/24 21:29 Temperature Pulse Rate 100 98 98 Respiratory Rate 16 16 Blood Pressure Pulse Oximetry Oxygen Delivery 06/30/24 22:00 07/01/24 00:00 07/01/24 04:00 Temperature 97.9 F Pulse Rate 97 100 100 Respiratory Rate 18 Blood Pressure 119/54 L Pulse Oximetry 93 Oxygen Delivery 07/01/24 05:50 07/01/24 08:00 07/01/24 08:36 Temperature 97.8 F Pulse Rate 104 H Respiratory Rate 16 Blood Pressure 127/48 L Pulse Oximetry 94 93 Oxygen Delivery Room Air Room Air 07/01/24 12:28 Temperature Pulse Rate 120 H Respiratory Rate Blood Pressure Pulse Oximetry Oxygen Delivery Intake/Output Intake/Output: Intake & Output 06/28/24 06/29/24 06/30/24 07/01/24 23:59 23:59 23:59 23:59 Intake Total 1080 1610 400 Output Total 425 250 Balance 1080 1185 150 Meds/Results Medications: Active Medications Generic Name Dose Route Start Last Admin Trade Name Freq PRN Reason Stop Dose Admin Acetaminophen 500 mg 06/29/24 15:41 Acetaminophen 500 Mg Tablet PO Q4H PRN Mild Pain (1-3) or Fever Hydrocodone Bitart/Acetaminophen 1 tab 06/29/24 03:21 07/01/24 12:26 Hydrocodone/Acetaminophen (*Crx) 5-325 Mg Tablet PO 1 tab Q4H PRN Administration Pain Rated 4-6 Bupropion HCl 150 mg 06/29/24 10:00 07/01/24 12:27 Bupropion Hcl Sr (12 Hr) 150 Mg Tab PO 150 mg DAILY RASHMI Administration Clonazepam 0.5 mg 06/29/24 21:00 06/30/24 22:18 Clonazepam (*Crx) 0.5 Mg Tablet PO 0.5 mg HS RASHMI Administration Diclofenac Sodium 1 applic 06/30/24 17:00 07/01/24 12:29 Diclofenac Sodium 1% 100 Gm Gel (*Bkc) TOPICAL 1 applic QID RASHMI Administration Furosemide 20 mg 07/01/24 09:00 Furosemide 20 Mg Tablet PO BID RASHMI Gabapentin 300 mg 06/29/24 09:05 07/01/24 12:27 Gabapentin 300 Mg Capsule PO 300 mg Q12HR RASHMI Administration Gabapentin 600 mg 06/29/24 18:00 06/30/24 17:32 Gabapentin 300 Mg Capsule PO 600 mg EVENING RASHMI Administration Ceftriaxone Sodium 1 gm in 50 mls @ 100 mls/hr 06/30/24 05:00 07/01/24 06:15 Rocephin 1 Gm/Ns 50 Ml IVPB Infused Q24H RASHMI Infusion Azithromycin 500 mg in 250 mls @ 250 mls/hr 06/30/24 05:00 07/01/24 06:51 Zithromax IVPB Infused Q24H RASHMI Infusion Metronidazole 500 mg in 100 mls @ 100 mls/hr 06/29/24 14:00 07/01/24 13:09 Flagyl 500 Mg/Iso Soln 100 Ml IVPB 100 mls/hr Q8HR RASHMI Administration Ketorolac Tromethamine 15 mg 06/30/24 13:39 06/30/24 15:02 Ketorolac 15 Mg/Ml Vial (*Bkc) IV PUSH 15 mg Q6H PRN Administration Pain Rated 4-6 Lidocaine 1 patch 06/30/24 09:00 07/01/24 12:29 Lidocaine 5% Patch TRANSDERM 1 patch DAILY ARSHMI Administration Memantine 10 mg 06/29/24 09:00 07/01/24 12:27 Memantine 10 Mg Tablet PO 10 mg DAILY RASHMI Administration Metoprolol Succinate 25 mg 06/30/24 09:00 07/01/24 12:28 Metoprolol Succinate Ext Rel 25 Mg Tabcr PO 25 mg DAILY RASHMI Administration Morphine Sulfate 2 mg 06/29/24 03:21 06/29/24 11:03 Morphine Sulfate (*Crx) 2 Mg/Ml Inj IV PUSH 2 mg Q2H PRN Administration Pain Rated 7-10 Pantoprazole Sodium 40 mg 06/29/24 09:00 07/01/24 12:28 Pantoprazole 40 Mg Tablet PO 40 mg QAM RASHMI Administration Potassium Chloride 20 meq 06/30/24 09:00 07/01/24 12:27 Potassium Chloride 20 Meq Er Tablet PO 20 meq DAILY RASHMI Administration Fluticasone/Salmeterol 2 puff 06/29/24 20:00 07/01/24 08:35 Fluticasone/Salmeterol 115-21 Mcg Inhaler 1 Puff INHALATION 2 puff Q12HRT RASHMI Administration Trazodone HCl 50 mg 06/29/24 21:00 06/29/24 20:51 Trazodone Hcl 50 Mg Tablet BY MOUTH 50 mg HS PRN Administration Sleep Vitamin D 5,000 units 06/29/24 09:00 07/01/24 12:28 Cholecalciferol 5,000 Units Tablet BY MOUTH 5,000 units DAILY RASHMI Administration Radiology Results: ITS Impressions Chest X-Ray 06/29/24 05:24 Impression: Small pleural effusions with minimal bibasilar pulmonary edema/atelectasis. Chest CTA 06/29/24 06:04 Impression: Moderate bilateral pleural effusions with bibasilar atelectasis. Small pericardial effusion. No pulmonary embolus. Shoulder X-Ray 06/30/24 15:09 IMPRESSION: No acute fracture or anterior dislocation. Moderate left-sided pleural effusion, unchanged from CTA of the chest performed 24 hours earlier Quality VTE Prophylaxis VTE prophylaxis: mechanical ordered -Patient's previous records reviewed on admission -ER notes reviewed in detail on admission -discussed all findings and current treatment plan with patient/Family/POA -Consultations reviewed for recommendations -Patient's disposition for safe discharge discussed with nurse case management Dictation performed by [employer] direct speech recognition software, therefore city bus driver variants and typographical errors may occur. Hospitalist MIPS Advance Care Plan I have confirmed that the patient's Advanced Care Plan is present, code status is documented, or surrogate decision maker is listed in patient medical record.: Yes Medication Reconciliation I have utilized all available resources to obtain, update and review the patients current medications (includes all prescriptions, OTC, herbals, cannabis, and nutritional supplements).: Yes The patient is not eligible for med reconciliation; the patient is in a emergent medical situation where delaying treatment would jeopardize the patients health.: No
[2024-07-01] MEDS: KETOROLAC 15 MG/ML VIAL (*BKC) IV PUSH ×2 (14:46→20:46)
[2024-07-01] MEDS: GABAPENTIN 300 MG CAPSULE 600 MG PO (17:10)
[2024-07-01] MEDS: FUROSEMIDE 20 MG TABLET PO (17:11)
[2024-07-01] MEDS: clonazePAM (*CRX) 0.5 MG TABLET PO (20:48)
[2024-07-01] MEDS: traZODone HCL 50 MG TABLET BY MOUTH (20:49)
[2024-07-02] VITALS (7 sets, daily range): BP systolic 128; BP diastolic 57; PULSE 98–109; RESP 20; TEMP 36.4; O2SAT 94–97
[2024-07-02] MEDS: AZITHROMYCIN 500 MG/NS 250 ML 500 MG/250 ML BAG 250 MG IVPB (04:28)
[2024-07-02] MEDS: KETOROLAC 15 MG/ML VIAL (*BKC) IV PUSH (05:50)
[2024-07-02] MEDS: metroNIDAZOLE 500 MG/ISO 100ML 500 MG/100 ML BAG 100 MG IVPB (05:51)
--- NOTE | 2024-07-02 08:08 | PM.PNCARD ---
Progress Note: A&P Assessment and Plan (1) Chest pain: Code(s): R07.9 - Chest pain, unspecified Status: Acute Assessment and Plan: Probably musculoskeletal or costochondritis. She has been r/o for [place] by serial troponin and EKG. 07/01/24 lexiscan myoview stress test is negative for ischemia. Pain control. No further cardiac workup is needed. May d/c home from cardiology standpoint. (2) Diastolic dysfunction: Code(s): I51.89 - Other ill-defined heart diseases Status: Acute Assessment and Plan: Euvolemic but does have some pleural effusions. On Lasix 20 mg BID for mod pleural effusions. (3) Hypertension: Qualifiers: Hypertension type: essential hypertension Qualified Code(s): I10 - Essential (primary) hypertension Code(s): I10 - Essential (primary) hypertension Status: Acute Assessment and Plan: Stable. (4) Pneumonia: Code(s): J18.9 - Pneumonia, unspecified organism Status: Acute Assessment and Plan: On antibiotics. Subjective Date/time seen: 07/02/24 08:08 Interval history: Patient continues to have left shoulder pain and inspirator left chest pain. No sob. Exam Const: General: cooperative, healthy appearing and comfortable Orientation/consciousness: oriented to person, oriented to place and oriented to time Resp: Auscultation: clear to auscultation bilaterally, no crackles, no rales, no rhonchi and no wheezes Cardio: Rate: regular rate Rhythm: regular rhythm Heart sounds: no murmurs Peripheral pulses: dorsalis pedis present Neuro: General: oriented to person, oriented to place and oriented to time Extrem: Right lower extremity: no edema Left lower extremity: no edema Objective Data Vital Signs Vital Signs: Vital Signs - 24 hr 07/01/24 08:36 07/01/24 12:00 07/01/24 12:28 Temperature Pulse Rate 119 H 120 H Respiratory Rate Blood Pressure Pulse Oximetry 93 Oxygen Delivery Room Air 07/01/24 14:00 07/01/24 16:00 07/01/24 19:57 Temperature 98.1 F Pulse Rate 82 109 H 96 Respiratory Rate 19 16 Blood Pressure 124/88 Pulse Oximetry 95 Oxygen Delivery 07/01/24 19:57 07/01/24 20:00 07/01/24 21:03 Temperature Pulse Rate 107 H Respiratory Rate Blood Pressure Pulse Oximetry 92 Oxygen Delivery Room Air Room Air 07/01/24 21:09 07/02/24 00:00 07/02/24 04:09 Temperature 98.1 F Pulse Rate 106 H 98 98 Respiratory Rate 18 Blood Pressure 115/54 L Pulse Oximetry 92 Oxygen Delivery 07/02/24 06:00 Temperature 97.6 F Pulse Rate 99 Respiratory Rate 20 Blood Pressure 128/57 L Pulse Oximetry 94 Oxygen Delivery Intake/Output Intake/Output: Intake & Output 06/29/24 06/30/24 07/01/24 07/02/24 23:59 23:59 23:59 23:59 Intake Total 1080 1610 900 200 Output Total 425 250 400 Balance 1080 1185 650 -200 Meds/Results Medications: Active Medications Generic Name Dose Route Start Last Admin Trade Name Freq PRN Reason Stop Dose Admin Acetaminophen 500 mg 06/29/24 15:41 Acetaminophen 500 Mg Tablet PO Q4H PRN Mild Pain (1-3) or Fever Hydrocodone Bitart/Acetaminophen 1 tab 06/29/24 03:21 07/01/24 12:26 Hydrocodone/Acetaminophen (*Crx) 5-325 Mg Tablet PO 1 tab Q4H PRN Administration Pain Rated 4-6 Bupropion HCl 150 mg 06/29/24 10:00 07/01/24 12:27 Bupropion Hcl Sr (12 Hr) 150 Mg Tab PO 150 mg DAILY RASHMI Administration Clonazepam 0.5 mg 06/29/24 21:00 07/01/24 20:48 Clonazepam (*Crx) 0.5 Mg Tablet PO 0.5 mg HS RASHMI Administration Diclofenac Sodium 1 applic 06/30/24 17:00 07/01/24 20:48 Diclofenac Sodium 1% 100 Gm Gel (*Bkc) TOPICAL Not Given QID RASHMI Furosemide 20 mg 07/01/24 09:00 07/01/24 17:11 Furosemide 20 Mg Tablet PO 20 mg BID RASHMI Administration Gabapentin 300 mg 06/29/24 09:05 07/01/24 20:46 Gabapentin 300 Mg Capsule PO 300 mg Q12HR RASHMI Administration Gabapentin 600 mg 06/29/24 18:00 07/01/24 17:10 Gabapentin 300 Mg Capsule PO 600 mg EVENING RASHMI Administration Ceftriaxone Sodium 1 gm in 50 mls @ 100 mls/hr 06/30/24 05:00 07/02/24 04:30 Rocephin 1 Gm/Ns 50 Ml IVPB 100 mls/hr Q24H RASHMI Administration Azithromycin 500 mg in 250 mls @ 250 mls/hr 06/30/24 05:00 07/02/24 04:28 Zithromax IVPB 250 mls/hr Q24H RASHMI Administration Metronidazole 500 mg in 100 mls @ 100 mls/hr 06/29/24 14:00 07/02/24 05:51 Flagyl 500 Mg/Iso Soln 100 Ml IVPB 100 mls/hr Q8HR RASHMI Administration Ketorolac Tromethamine 15 mg 07/01/24 14:25 07/02/24 05:50 Ketorolac 15 Mg/Ml Vial (*Bkc) IV PUSH 15 mg Q8HR RASHMI Administration Lidocaine 1 patch 06/30/24 09:00 07/01/24 12:29 Lidocaine 5% Patch TRANSDERM 1 patch DAILY RASHMI Administration Memantine 10 mg 06/29/24 09:00 07/01/24 12:27 Memantine 10 Mg Tablet PO 10 mg DAILY RASHMI Administration Metoprolol Succinate 25 mg 06/30/24 09:00 07/01/24 12:28 Metoprolol Succinate Ext Rel 25 Mg Tabcr PO 25 mg DAILY RASHMI Administration Morphine Sulfate 2 mg 06/29/24 03:21 06/29/24 11:03 Morphine Sulfate (*Crx) 2 Mg/Ml Inj IV PUSH 2 mg Q2H PRN Administration Pain Rated 7-10 Pantoprazole Sodium 40 mg 06/29/24 09:00 07/01/24 12:28 Pantoprazole 40 Mg Tablet PO 40 mg QAM RASHMI Administration Potassium Chloride 20 meq 06/30/24 09:00 07/01/24 12:27 Potassium Chloride 20 Meq Er Tablet PO 20 meq DAILY RASHMI Administration Fluticasone/Salmeterol 2 puff 06/29/24 20:00 07/01/24 19:55 Fluticasone/Salmeterol 115-21 Mcg Inhaler 1 Puff INHALATION 2 puff Q12HRT RASHMI Administration Trazodone HCl 50 mg 06/29/24 21:00 07/01/24 20:49 Trazodone Hcl 50 Mg Tablet BY MOUTH 50 mg HS PRN Administration Sleep Vitamin D 5,000 units 06/29/24 09:00 07/01/24 12:28 Cholecalciferol 5,000 Units Tablet BY MOUTH 5,000 units DAILY RASHMI Administration Radiology Results: ITS Impressions Chest X-Ray 06/29/24 05:24 Impression: Small pleural effusions with minimal bibasilar pulmonary edema/atelectasis. Chest CTA 06/29/24 06:04 Impression: Moderate bilateral pleural effusions with bibasilar atelectasis. Small pericardial effusion. No pulmonary embolus. Shoulder X-Ray 06/30/24 15:09 IMPRESSION: No acute fracture or anterior dislocation. Moderate left-sided pleural effusion, unchanged from CTA of the chest performed 24 hours earlier Lexiscan Stress Test 07/01/24 13:37 IMPRESSION: 1. Normal myocardial perfusion at rest and during stress. 2. Left ventricular ejection fraction measuring 55%.
[2024-07-02] MEDS: FLUTICASONE/SALMETEROL 115-21 MCG INHALER 1 PUFF 2 PUFF INHALATION (08:10)
[2024-07-02] MEDS: FUROSEMIDE 20 MG TABLET PO (08:56)
[2024-07-02] MEDS: buPROPion HCL SR (12 HR) 150 MG TAB PO (08:56)
[2024-07-02] MEDS: POTASSIUM CHLORIDE 20 MEQ ER TABLET PO (08:56)
[2024-07-02] MEDS: GABAPENTIN 300 MG CAPSULE PO (08:56)
[2024-07-02] MEDS: METOPROLOL SUCCINATE EXT REL 25 MG TABCR PO (08:57)
[2024-07-02] MEDS: PANTOPRAZOLE 40 MG TABLET PO (08:57)
[2024-07-02] MEDS: CHOLECALCIFEROL 5,000 UNITS TABLET 5000 UNITS BY MOUTH (08:57)
[2024-07-02] MEDS: MEMANTINE 10 MG TABLET PO (08:57)
[2024-07-02] MEDS: LIDOCAINE 5% PATCH 1 PATCH TRANSDERM (08:58)
[2024-07-02] MEDS: HYDROcodone/acetaminophen (*CRX) 5-325 MG TABLET 1 TAB PO (08:58)
[2024-07-02] MEDS: DICLOFENAC SODIUM 1% 100 GM GEL (*BKC) 1 APPLIC TOPICAL (08:59)
--- NOTE | 2024-07-02 10:45 | P.DS_ITS ---
DS: Admitting Diagnosis Discharge Date 07/02/2024 Admitting Diagnosis Chest Pain/Pneumonia DS: Discharge Diagnosis Discharge Diagnosis (1) Chest pain: Qualifiers: Chest pain type: unspecified Qualified Code(s): R07.9 - Chest pain, unspecified Code(s): R07.9 - Chest pain, unspecified Status: Acute (2) Pneumonia: Code(s): J18.9 - Pneumonia, unspecified organism Status: Acute (3) CHF (congestive heart failure): Qualifiers: Heart failure chronicity: acute on chronic Heart failure type: diastolic Qualified Code(s): I50.33 - Acute on chronic diastolic (congestive) heart failure Code(s): I50.9 - Heart failure, unspecified Status: Acute (4) Shoulder pain: Code(s): M25.519 - Pain in unspecified shoulder Status: Acute (5) Hypertension: Qualifiers: Hypertension type: essential hypertension Qualified Code(s): I10 - Essential (primary) hypertension Code(s): I10 - Essential (primary) hypertension Status: Acute (6) Hypotension: Code(s): I95.9 - Hypotension, unspecified Status: Acute Plan Disposition: Discharge to home with home health DS: Summary Hospital Course Reason for hospitalization: Chest Pain/[place] Hospital Course: This is a pleasant 84-year-old female brought to [facility] accompanied by her daughter whom she lives with with the complaint of 4 days of chest pain. Patient was recently discharged on 06/20/2024 with a new diagnosis of heart failure. At that time she reports she had chest pain and shortness of breath and this is very similar however has worsened. The pain is sharp over the right side of the chest and is worsened upon inspiration. She also reports a separate pain and her left shoulder which radiates towards her neck. She denies fever. Reports cough at night over the past few days as well. Denies vomiting. Evaluation in the ER demonstrates acceptable O2 saturation on room air. WBC 9.1. Sodium 133 similar to last admission. BNP 3220 down from 16,000. CTA chest perform did not demonstrate PE but shows evidence of pneumonia. Possible aspiration associated. Patient was admitted for evaluation of reported chest pain and shortness of breath which is radiating from left shoulder to her neck patient had recently been diagnosed with diastolic heart failure intubated back on 06/21/2019. CTA perform was negative for PE but was suggestive pneumonia and bilateral small pleural effusions cardiology was consulted and plans for stress test. BP had significantly improved from previous admission appeared euvolemic. Patient serial troponin that were negative no ST/T changes on her EKGs. Patient has had complaints of shoulder pain progressively getting worse but no pain with movement potentially pleuritic pain improved with Toradol could be underlying cause. Lexiscan: was negative and VA was ruled out patient was treated with antibiotics azithromycin and Rocephin and transition to oral Augmentin at discharge she was instructed to continue with her incentive spirometer at home this will also assist her bilateral pleural effusions. Patient seen by Cardiology they recommended to place her on 20 mg Lasix b.i.d. her bilateral pleural effusions as well as CHF he was instructed to continue with daily weights and resume her metoprolol plan to follow-up with cardiology as scheduled. Patient continued to have mild left shoulder plain likely costochondritis a did discharge her with an order for Toradol as needed as well as Voltaren cream for shoulder and lidocaine patch. Patient did report some improvement to pain with noninflammatory was instructed after Toradol is complete she can transition to ibuprofen as needed. Daughter at bedside updated on discharge plan as well as patient both acknowledged and agreed with discharge plan patient was discharged home with home health the transported daughter. Status at Discharge Functional status at discharge: uses cane/walker Overall status at discharge: patient is back to baseline Time Spent with Patient Time attestation: Total time spent providing and/or coordinating discharge services: Time spent: Greater than 30 minutes Exam Const: General: comfortable and no acute distress HENMT: Mouth: Yes moist mucous membranes Eyes: Pupils: Equal, round and reactive pupils present Neck: Neck: supple Resp: Effort & Inspection: normal respiratory effort Auscultation: clear to auscultation bilaterally Cardio: Rate: regular rate Rhythm: regular rhythm Neuro: Cranial nerves: Yes Equal, round and reactive pupils present Motor exam (neuro): 5/5 motor strength present throughout Extrem: General: no edema DS: Data Data Completed and Pending Labs on day of discharge: Preliminary micro results at discharge 06/29/24 03:41 Blood Culture - Preliminary Blood 06/29/24 05:48 Blood Culture - Preliminary Blood Imaging Radiologist's impression: Radiology Results: ITS Impressions Chest X-Ray 06/29/24 05:24 Impression: Small pleural effusions with minimal bibasilar pulmonary edema/atelectasis. Chest CTA 06/29/24 06:04 Impression: Moderate bilateral pleural effusions with bibasilar atelectasis. Small pericardial effusion. No pulmonary embolus. Shoulder X-Ray 06/30/24 15:09 IMPRESSION: No acute fracture or anterior dislocation. Moderate left-sided pleural effusion, unchanged from CTA of the chest performed 24 hours earlier Discharge Plan Discharge Attending physician on discharge: Leonardo Carey Consulting providers: Armond Castaneda; Theresa Hurt Discharging Clinician: Theresa Hurt Anticipated Discharge Date/Time: 07/02/24 10:30 Patient Disposition: Home with Home Health Service Activity: may shower, no straining and as tolerated Diet: heart healthy and low sodium Discharge Instructions: Per Care Coordination, patient to discharge with [facility] ([phone]) . Please fax discharge instructions and medication sheets to [phone]. Congestive heart failure/Pleural Effusion: * Resume Lasix 20mg twice a day * Weight weekly report 3-5 weight gain in on week * follow-up with Cardiology as scheduled * Low sodium heart healthy diet Pneumonia: * I have prescribed antibiotic oral antibiotic therapy please take as indicated and complete even if feeling better Costochondritis: * You have been ruled out for a heart attack * I have prescribed pain medication may take as indicated L How can you care for yourself at home? ? Keep track of any new symptoms or changes in your symptoms. ? Rest until you feel better. ? Be safe with medicines. Take your medicines exactly as prescribed. Call your doctor if you think you are having a problem with your medicine. ? Do not drive after taking a prescription pain medicine. ? Ensure to follow-up with primary care physician as indicated and provide updated medication list provided to you at discharge. When should you call for help? Call 911 anytime you think you may need emergency care. For example, call if: ? You passed out (lost consciousness). Call your doctor now or seek immediate medical care if: ? You have new symptoms like fever, difficulty breathing, Chest pain, vomiting, or rash. ? You have new or different pain. ? You are confused and are having trouble thinking clearly. ? Your symptoms are getting worse. Watch closely for changes in your health, and be sure to contact your doctor if: ? You do not get better as expected. Patient Instructions: Antibiotic Form Patient Language: Luxembourger Stand Alone Forms: General Discharge Information Follow-up/Referrals: Evangelista Carlson MD [Primary Care Provider] - 2 Weeks Discharge Medications: New hydrocodone-acetaminophen 5-325 mg Tablet 1 tablet PO Q4H PRN (Reason: Pain Rated 4-6) Qty: 20 0RF lidocaine [Lidoderm] 5 % Adhesive Patch,Medicated 1 patch transdermal DAILY Qty: 30 0RF amoxicillin-pot clavulanate 875-125 mg tablet 1 tablet PO Q12H Qty: 10 0RF diclofenac sodium [Arthritis Pain (diclofenac)] 1 % gel 2 g topical QID Qty: 100 0RF Rx Instructions: apply to single elbow, wrist or hand; for hand includes palm/fingers/back of hand ketorolac 10 mg tablet 10 mg PO Q8H PRN (Reason: pain) Qty: 10 0RF Rx Instructions: maximum total duration of 5 days from all oral, intranasal, or parenteral formulations Continued fluticasone furoate-vilanterol [Breo Ellipta] 100-25 mcg/dose blister with device 1 inh inhalation DAILY Centrum Silver Women 8 mg iron-400 mcg-50 mcg Tablet 1 tablet PO DAILY bupropion HCl 150 mg tablet sustained-release 12 hr 150 mg PO DAILY Rx Instructions: TAKE 1 TABLET BY MOUTH EVERY MORNING pantoprazole 40 mg Tablet,Delayed Release (Dr/Ec) 40 mg PO QAM Qty: 30 0RF metoprolol succinate 25 mg tablet extended release 24 hr 25 mg PO DAILY Qty: 30 0RF PreserVision Lutein 226-90-0.8-5 mg Capsule 1 cap PO BID cholecalciferol (vitamin D3) [Vitamin D3] 125 mcg (5,000 unit) Tablet 250 mcg PO DAILY gabapentin 300 mg capsule 300 mg PO .COMPLEX Rx Instructions: 300 mg orally in the AM, 2 in PM, and 1 HS; memantine 10 mg tablet 10 mg PO DAILY Qty: 90 2RF potassium chloride 20 mEq tablet,ER particles/crystals See Rx Instructions .ROUTE .COMPLEX Qty: 90 2RF Dose Instruction: TAKE 1 TABLET BY MOUTH DAILY Rx Instructions: TAKE 1 TABLET BY MOUTH DAILY trazodone 50 mg tablet See Rx Instructions .ROUTE .COMPLEX Qty: 90 2RF Dose Instruction: TAKE 1 TABLET BY MOUTH EVERY DAY AT BEDTIME NEEDED FOR SLEEP Rx Instructions: TAKE 1 TABLET BY MOUTH EVERY DAY AT BEDTIME NEEDED FOR SLEEP clonazepam 0.5 mg tablet 0.5 mg PO HS Qty: 30 2RF Changed furosemide 20 mg tablet 20 mg PO BID Qty: 60 0RF Discontinued linezolid 600 mg Tablet 600 mg PO Q12HR Qty: 13 0RF Date of admission: 06/30/24 09:50 Primary Care Provider: Evangelista Carlson Admitting Provider: Carole Pa Attending physician on admission: Ni Tinoco Condition: Stable Quality VTE Prophylaxis VTE prophylaxis: mechanical ordered -Patient's previous records reviewed on admission -ER notes reviewed in detail on admission -discussed all findings and current treatment plan with patient/Family/POA -Consultations reviewed for recommendations -Patient's disposition for safe discharge discussed with case coordinator Dictation performed by [employer] direct speech recognition software, therefore hvac design engineer variants and typographical errors may occur. Hospitalist MIPS Heart Failure (Exclusion) Patient has history of Heart Transplant or Left Ventricular Assistive Device?: No IF YES, STOP HERE Heart Failure (Qualifier) Patient has current or prior documentation of LVEF less than or equal to 40%, or mod/servere depressed LVSF?: No IF NO, STOP HERE
== END 2024-07-02 14:40 | disposition home health service (06) | DRG 193 ==
LOC: ANHED 06-29 03:25 → ANH3MED 06-29 04:27
PROVIDERS: Nurse Practitioner; Admitting Provider General Practice; Emergency Provider Emergency Medicine; PCP Emergency Medicine; Visit Provider Nurse Practitioner Family
DX: J18.9 Pneumonia, unspecified organism (principal); I50.33 Acute on chronic diastolic (congestive) heart failure; E87.1 Hypo-osmolality and hyponatremia; R07.89 Other chest pain; E55.9 Vitamin D deficiency, unspecified; I11.0 Hypertensive heart disease with heart failure; I95.9 Hypotension, unspecified; K21.9 Gastro-esophageal reflux disease without esophagitis; M25.512 Pain in left shoulder; Z90.49 Acquired absence of other specified parts of digestive tract; Z87.891 Personal history of nicotine dependence; Z20.822 Contact with and (suspected) exposure to COVID-19
CPT/HCPCS: 36415; 71046; 71275; 73030; 78452; 80048; 80053; 81003; 83605; 83880; 84145; 84484; 85025; 85027; 85610; 85730; 87040; 87637; 93005; 93017; 94640; 96365; 96366; 96367; 96368; 96375; 96376; 97110; 97161; 97530; 99285; A9270; A9502; G0378; J0456; J0696; J1836; J1885; J2270; J2785; J7050; Q9967

== ENCOUNTER 2024-07-09 14:59 | Emergency (ER) | payer MEDICARE, SELFPAY ==
[2024-07-09 15:19] VITALS: BP 121/55; PULSE 104; RESP 16; TEMP 36.3; O2SAT 100
--- NOTE | 2024-07-09 15:19 | ED_ITS ---
HPI - Female Genitourinary General Chief complaint: Urogenital-Female Stated complaint: UTI SYMPTOMS Time Seen by Provider: 07/09/24 15:20 Source: patient and family Mode of arrival: ambulatory Limitations: no limitations History of Present Illness HPI Narrative: 84-year-old female with history of multiple urinary tract infections presents today with her daughter with complaint of confusion. Patient self caths a pproximately twice a day. Was recently in hospital due to urinary tract infection. Afebrile. No pain. Denies nausea vomiting. Patient's daughter states that since patient has had multiple urinary tract infections recently, they are monitoring her closely. Daughter states that patient has seemed more confused the past 2 days. Patient is alert and oriented times 2-3. Patient alert and talkative. Patient recently took Augmentin for pneumonia and cause diarrhea. Would like to avoid antibiotic if not needed. All Systems reviewed and negative except as noted above. Related Data Home Medications ?Medication ?Instructions ?Recorded ?Confirmed ?Last Taken ?Type cholecalciferol (vitamin D3) 125 250 mcg PO DAILY 04/07/23 06/28/24 3 Days Ago History mcg (5,000 unit) tablet (Vitamin ~07/12/23 D3) vit C 226 mg-vit E 90 mg-copper 1 cap PO BID 04/07/23 06/28/24 3 Days Ago History 0.8 mg-zinc oxide-lutein 5 mg ~07/12/23 capsule (PreserVision Lutein) gabapentin 300 mg capsule 300 mg PO .COMPLEX 06/08/23 06/28/24 07/15/23 History [id number] 8 mg-folic 400 1 tablet PO DAILY 07/10/23 06/28/24 3 Days Ago History mcg-K 50 mcg-lutein 300 mcg tablet ~07/12/23 (Centrum Silver Women) bupropion HCl 150 mg tablet,12 hr 150 mg PO DAILY 06/18/24 06/28/24 Unknown History sustained-release fluticasone furoate 100 1 inh inhalation DAILY 06/22/24 06/28/24 Unknown History mcg-vilanterol 25 mcg/dose inhalation powder (Breo Ellipta) Allergies Allergy/AdvReac Type Severity Reaction Status Date / Time propoxyphene (From Darvon) Allergy Severe Swelling Verified 06/28/24 23:46 of Lip/Tongue/Throat donepezil (From Aricept) AdvReac Intermediate Abdominal Verified 06/28/24 23:46 Pain Review of Systems Review of Systems: CONSTITUTIONAL: Denies fever, chills, or sweats. EYES: Denies visual changes, redness, or discharge. ENT: Denies rhinorrhea, congestion, sore throat, or otalgia. CARDIOVASCULAR: Denies chest pain, palpitations, or edema. RESPIRATORY: Denies cough or dyspnea. GASTROINTESTINAL: Denies abdominal pain, nausea, vomiting, or diarrhea. GENITOURINARY: Denies dysuria or hematuria. SKIN: Denies rash or itching. MUSCULOSKELETAL: Denies back pain, joint pain, or myalgia. NEUROLOGIC: Denies headache, numbness, or weakness. Patient's family reports increased confusion PSYCHIATRIC: Denies anxiety or depression. All other systems reviewed are negative, except as documented in HPI. [facility] Past Medical History Medical History Dermatitis Irritant contact dermatitis Self-catheterizes urinary bladder Left inguinal hernia Encounter for other specified surgical aftercare Incarcerated right inguinal hernia Partial small bowel obstruction Right inguinal hernia Lipoma of colon Hx of adenomatous colonic polyps Restless legs syndrome Acute blood loss anemia Hyponatremia Pneumoperitoneum Spleen laceration Constipation Bloating Belching symptom Diverticulosis Frequent UTI Memory loss Mild persistent asthma without complication Presbycusis, bilateral Pure hypercholesterolemia Unsteady gait Vitamin D deficiency Insomnia Anxiety Hypertension Asthma GERD (gastroesophageal reflux disease) Depression Surgical History Surgical History History of colonoscopy , complicated by splenic & injury per patient H/O inguinal hernia repair Robotic laparoscopic repair incarcerated right inguinal hernia, robotic laparoscopic repair left inguinal hernia, both repairs with mesh on 07/14 History of tubal ligation History of cholecystectomy Family History Family History Father Family history of transient ischemic attacks Patient's father is Cerebrovascular accident, Onset Age: 77 Sibling Family history of chronic obstructive pulmonary disease Family history of lung cancer Patient's brother is Mother Family history of transient ischemic attacks, Onset Age: 91 Other Family history of schizophrenia Social History Social History Social History: Surrogate medical decision maker: Che Field or Steffany Bradshaw, daughters. Code status: Full code. Caffeine-none Smoking packs per day: 2 Smoking cigarettes per day: 40.0 Years smoked: 4 Smoking pack-years: 8.00 Smoking status: Former smoker Second hand tobacco smoke exposure: No Alcohol intake: former Substance use: never Substance use type: does not use Do You Feel Safe in your Home?: Yes Lack of Transportation: No Lack of Food: Never True Current Housing: I Have Housing Concerned About Future Housing: No Difficulty Paying Gas/Electric Bills: No Difficulty Paying for Meds: No Currently Unemployed: No Education: Master's Degree or Higher Difficulty w/ Childcare or Family Care: No Living arrangements: alone Spiritual care concerns: No Agree to blood products: Yes Comments At time of signature, agree with nursing past medical, surgical, social and family history. There is no relevant family history pertinent to the presenting complaint. Exam Narrative: GENERAL: This is a well-nourished, well-developed patient, in no apparent distress. HEAD: normocephalic, atraumatic. EYES: PERRL. Sclera clear/white. Vision is grossly intact. EARS: External ears normal NOSE: External nose normal NECK: Neck supple, non-tender without lymphadenopathy, masses or thyromegaly. CARDIOVASCULAR: Regular rate and rhythm without murmurs, gallops, or rubs. RESPIRATORY: Clear to auscultation. Breath sounds equal bilaterally. No wheezes, rales, or rhonchi. SKIN: warm, Dry, intact with no suspicious lesions or rash, good texture and turgor. NEURO: awake, alert, and oriented to person, place and time. There were no obvious focal neurologic abnormalities. EXTREMITIES: No joint tenderness, effusion, or edema noted. BACK: No CVA tenderness. Course Course Level of Care: Express Care Visit Vital Signs Vital signs: Vital Signs Temperature 36.3 C L 07/09/24 15:19 Pulse Rate 104 H 07/09/24 15:19 Respiratory Rate 16 07/09/24 15:19 Blood Pressure 121/55 L 07/09/24 15:19 Pulse Oximetry 100 07/09/24 15:19 Oxygen Delivery Room Air 07/09/24 15:19 Temperature 36.3 C L 07/09/24 15:19 Pulse Rate 104 H 07/09/24 15:19 Respiratory Rate 16 07/09/24 15:19 Blood Pressure 121/55 L 07/09/24 15:19 Pulse Oximetry 100 07/09/24 15:19 Oxygen Delivery Room Air 07/09/24 15:19 Reviewed MDM - Female Genitourinary MDM Narrative Medical decision making narrative: Urinalysis 3+ leukocytes, nitrites, blood. Patient is alert and talkative. Is able to answer most questions appropriately. Discussed patient's medical history and multiple urinary tract infections. Just saw her urologist Thursday. Past patient if she felt confused and she stated ?my daughter is a better d ropped of that ?. Treat patient with Levaquin today for urinary tract infection. Urine culture pending. Well-appearing, nontoxic. Please be advised this is a medical document. It is intended for avwt-hn-ikxy communication. It is written in medical language and may contain unfamiliar abbreviations or verbiage. Medical documents are intended to carry relevant information, facts as evident, and the clinical opinion of the practitioner at the time of the encounter. This report may have been done utilizing a voice recognition system. Attempts have been made to correct errors. However, there may be uncorrected grammatical, spelling, and recognition errors present. The file time of this note does not necessarily represent the time of service. Differential Diagnosis Differential diagnosis: Likely urinary tract infection Lab Data Labs: Lab Results 07/09/24 Range/Units 15:18 POC Urine Color Yellow POC Urine Clarity Cloudy POC Urine pH 6.0 POC Ur Specif Center Sand[place] 1.015 POC Urine Protein Negative (Negative) POC Ur Glucose (UA) Negative (Negative) POC Urine Ketones Negative (Negative) POC Urine Blood Trace (Negative) POC Urine Nitrite Positive (Negative) POC Urine Bilirubin Negative (Negative) POC Urine Urobilinogen 0.2 POC U Leukocyte Esteras 3+ (Negative) Discharge Plan Discharge Clinical Impression: Urinary tract infection Patient Disposition: Home Condition: Stable Instructions: Antibiotic Form, Urinary Tract Infection in Women (ED) Additional Instructions: Take antibiotic as prescribed until gone. Drink plenty of water and rest. Follow-up with your primary care physician if symptoms are not improving. If you have fever, fatigue, vomiting, severe pain go to the ER. Patient Language: Georgian Prescriptions: New levofloxacin 250 mg tablet 250 mg PO DAILY 5 Days Qty: 5 0RF No Action fluticasone furoate-vilanterol [Breo Ellipta] 100-25 mcg/dose blister with device 1 inh inhalation DAILY Centrum Silver Women 8 mg iron-400 mcg-50 mcg Tablet 1 tablet PO DAILY bupropion HCl 150 mg tablet sustained-release 12 hr 150 mg PO DAILY Rx Instructions: TAKE 1 TABLET BY MOUTH EVERY MORNING pantoprazole 40 mg Tablet,Delayed Release (Dr/Ec) 40 mg PO QAM Qty: 30 0RF metoprolol succinate 25 mg tablet extended release 24 hr 25 mg PO DAILY Qty: 30 0RF hydrocodone-acetaminophen 5-325 mg Tablet 1 tablet PO Q4H PRN (Reason: Pain Rated 4-6) Qty: 20 0RF lidocaine [Lidoderm] 5 % Adhesive Patch,Medicated 1 patch transdermal DAILY Qty: 30 0RF diclofenac sodium [Arthritis Pain (diclofenac)] 1 % gel 2 g topical QID Qty: 100 0RF Rx Instructions: apply to single elbow, wrist or hand; for hand includes palm/fingers/back of hand ketorolac 10 mg tablet 10 mg PO Q8H PRN (Reason: pain) Qty: 10 0RF Rx Instructions: maximum total duration of 5 days from all oral, intranasal, or parenteral formulations furosemide 20 mg tablet 20 mg PO BID Qty: 60 0RF PreserVision Lutein 226-90-0.8-5 mg Capsule 1 cap PO BID cholecalciferol (vitamin D3) [Vitamin D3] 125 mcg (5,000 unit) Tablet 250 mcg PO DAILY gabapentin 300 mg capsule 300 mg PO .COMPLEX Rx Instructions: 300 mg orally in the AM, 2 in PM, and 1 HS; memantine 10 mg tablet 10 mg PO DAILY Qty: 90 2RF potassium chloride 20 mEq tablet,ER particles/crystals See Rx Instructions .ROUTE .COMPLEX Qty: 90 2RF Dose Instruction: TAKE 1 TABLET BY MOUTH DAILY Rx Instructions: TAKE 1 TABLET BY MOUTH DAILY trazodone 50 mg tablet See Rx Instructions .ROUTE .COMPLEX Qty: 90 2RF Dose Instruction: TAKE 1 TABLET BY MOUTH EVERY DAY AT BEDTIME NEEDED FOR SLEEP Rx Instructions: TAKE 1 TABLET BY MOUTH EVERY DAY AT BEDTIME NEEDED FOR SLEEP clonazepam 0.5 mg tablet 0.5 mg PO HS Qty: 30 2RF Follow-up/Referrals: Evangelista Carlson MD [Primary Care Provider] - Time of Disposition: 15:29
[2024-07-09 15:21] LABS: EDUAAPPEAR Cloudy; EDUABILI Negative (Negative); EDUABLOOD Trace (Negative); EDUACOLOR1 Yellow; EDUAGLUCOSE Negative (Negative); EDUAKETONE Negative (Negative); EDUALEUKO 3+ (Negative); EDUANITRATE Positive (Negative); EDUAPROTEIN Negative (Negative); EDUASPGRAVITY 1.015; EDUAUROBILI 0.2
== END 2024-07-09 15:40 | disposition home or self-care (01) ==
PROVIDERS: Emergency Provider Nurse Practitioner Family; PCP Emergency Medicine
DX: N39.0 Urinary tract infection, site not specified (principal); Z87.891 Personal history of nicotine dependence; G25.81 Restless legs syndrome; J45.909 Unspecified asthma, uncomplicated; E78.00 Pure hypercholesterolemia, unspecified; E55.9 Vitamin D deficiency, unspecified; I10 Essential (primary) hypertension; K21.9 Gastro-esophageal reflux disease without esophagitis; F41.9 Anxiety disorder, unspecified; F32.A Depression, unspecified
CPT/HCPCS: 81003; 87086; 87186; 99213; G0463

== ENCOUNTER 2024-07-15 08:46 | Emergency (ER) | payer MEDICARE, SELFPAY ==
[2024-07-15] VITALS (12 sets, daily range): BP systolic 101–119; BP diastolic 51–80; PULSE 86–94; RESP 20–22; TEMP 36.6; O2SAT 90–98
--- NOTE | ~2024-07-15 | CT_ITS ---
Clinical Indication: Chest pain CT Scan of the Chest with Contrast: Technique: Contiguous sections were acquired throughout the chest after intravenous administration of 100 cc of Omnipaque 350. Dose reduction technique was used on this scan by utilizing automated expos ure control and iterative reconstruction technique. The dose-length product (DLP) was 344.13 mGy-cm. COMPARISON: 06/29/2024 Findings: There is no evidence of any significant mediastinal, hilar or axillary lymphadenopathy. There is no f illing defect in the pulmonary arterial tree to suggest pulmonary embolus. There is no evidence of ao rtic dissection or aneurysm. No pericardial effusion. Small to moderate bilateral pleural effusions are present with bibasilar atelectatic change. Lungs ar e otherwise clear. Images through the upper abdomen reveal no abnormalities. Impression: No evidence of pulmonary embolus, aortic dissection, or aortic aneurysm. Cnaup-di-mqnoxaqm bilateral pleural effusions with bibasilar atelectatic change. Reviewed, dictated and finalized at location . Impression: No evidence of pulmonary embolus, aortic dissection, or aortic aneurysm. Thstw-tz-hkfpzudk bilateral pleural effusions with bibasilar atelectatic change .
--- NOTE | ~2024-07-15 | XR_ITS ---
EXAMINATION: XR chest 1V portable DATE: 07/15/2024 09:12 INDICATION: Left-sided chest pain TECHNIQUE: frontal view of the chest was obtained. COMPARISON: Chest radiograph dated 06/28/2024 FINDINGS: Gradient of hazy basilar predominant airspace opacities in bilateral mid and lower lung zones consist ent with small bilateral posterior layering pleural effusions. Retrocardiac consolidation in the left lower lung zone most likely associated atelectasis although differential includes pneumonia. Increas ed interstitial pattern in the lower lungs consistent with mild pulmonary edema. No pneumothorax. Hea rt size is within normal limits for AP technique. IMPRESSION: 1. Mild pulmonary edema with persistent small bilateral pleural effusions. 2. Retrocardiac consolidation in the left lower lung zones most likely associated atelectasis althoug h differential includes pneumonia. Reviewed, dictated and finalized at location A. IMPRESSION: 1. Mild pulmonary edema with persistent small bilateral pleural effusions. 2. Retrocardiac consolidation in the left lower lung zones most likely associat ed atelectasis although differential includes pneumonia.
--- NOTE | 2024-07-15 08:47 | ECG_ITS ---
Test Date: 2024-07-15 08:54:22 Measurements Intervals [place] Rate: 93 P: 49 VT: 176 QRS: -63 QRSD: 150 T: 17 QT: 428 QTc: 533 Interpretive Statements SINUS RHYTHM RIGHT BUNDLE BRANCH BLOCK [120+ ms QRS DURATION, UPRIGHT V1, 40+ ms S IN I/aVL/V4/V5/V6] LEFT ANTERIOR FASCICULAR BLOCK [QRS AXIS <= -45, QR IN I, RS IN II] Compared to ECG 06/29/2024 03:21:52 Sinus tachycardia no longer present Electronically Signed On 07-15-2024 12:18:24 CDT by Emir Manley M.D.
--- OUTSIDE RECORDS SUMMARY | 2024-07-15 08:49 | XMS_ITS | Encounter Summary ---
Author Organization [facility] Address 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
--- OUTSIDE RECORDS SUMMARY | 2024-07-15 08:49 | XMS_ITS | Referral Summary ---
Author Organization [facility] [place] Address [address] [place] [address] Care Team Providers Care Yeast Tender Name Role Phone Evangelista Carlson MD Primary Care Provide r Berny Vazquez MD Unavailable [phone] Allergies Active Allergy Reactions Criticality Noted Date [...] parkinsonism. Assessment & Plan (03/31/2022 11:14 AM FOOD SERVICE ORDER CLERK): She had stage 3 parkinsonism characterized by [...] depression. Assessment & Plan (01/14/2021 12:22 PM FOOD SERVICE ORDER CLERK): She had stage 3 parkinsonism characterized by [...] reevaluate her in 6 months with our Helmet Hat Brim Cutter and repeat a video at that time. [...] on file Legal Sex Female 1:49 AM FOOD SERVICE ORDER CLERK Gender Identity Female 07/15/2021 8:28 PM CDT [...] Treatment Not on file Insurance MEDICARE MEDICARE [facility] [place] [id number] MEDICARE [facility] Care Teams Yeast Tender Relationship Specialty Start Date End Date Evangelista Carlson MD [address] [place] [address] PCP - General Emergency Medicine 07/26/20 Berny Vazquez MD [address] [place] [address] Referring Physician Allergy and Immunology 01/11/21
--- OUTSIDE RECORDS SUMMARY | 2024-07-15 08:49 | XMS_ITS | Encounter Summary ---
Author Organization [facility] Address 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
--- OUTSIDE RECORDS SUMMARY | 2024-07-15 08:49 | XMS_ITS | Continuity of Care Document ---
Author Organization [facility] Address [address] [place] [address] Phone Care Team Providers Care Clarity Developer Name Role Phone Chet Murray Unavailable Unavailable [...] Copied on Encounter Office/outpat ient Visit, Est [facility], [address], [place], [place], [address], [place] tel:[phone] [facility] No Information 0 Trevor Rosenberg. [address] , [address], [place], [address], [place]. tel:[phone] [facility], [address], [place], [place], [address], [place] tel:[phone] [facility] No Information [address] [employer] . [address] [facility], [address], [place], [place], [address], [place]. tel:[phone] Referring Provider: Chet Smith, [address] [facility], [place], [address]. tel:[phone] esquivel Provider: Chrissy Huffman, [address] [facility], [place], [address]. tel:[phone] [facility], [address] [facility] [address], [place], [place], [address], tel:[phone] [facility] No Information 7-200 9 Doimiriam Rosenberg. [address] [facility] , [address], [place], [place], [facility], . tel:[phone] [facility], [address], [place], [place], [address], tel:[phone] [facility] No Information 3-200 8 Trevor Rosenberg. Critical access hospital[facility] , [address], [place], [place], [facility], . tel:[phone] [facility], [address] [place] [address] [address], [place], [place], [address], tel:[phone] [facility] No Information 0 8-200 7 Trevor Rosenberg. Critical access hospital[facility] , [address], [place], [place], [facility], . tel:[phone] Family History Family Member Type Diagnosis Age At Onset No Information Payers Payer name Insurance type Covered democrat ID Authoriza tion(s) [place] [id number] [place] [id number] Social History Type Description Quantity Date Captured [...]
--- OUTSIDE RECORDS SUMMARY | 2024-07-15 08:49 | XMS_ITS | Encounter Summary ---
Author Organization [facility] Address 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
--- OUTSIDE RECORDS SUMMARY | 2024-07-15 08:49 | XMS_ITS | Clinical Summary ---
Author Organization [facility] Address [address] [place] [address] Care Team Providers Care Sort Worker Name Role Phone Unavailable Primary Care [...] 2013 COVID-19 Vaccine (2023-2 5 season) 2023 Meningococcal B Vaccine Aged Out No l onger eligible based on patient's age to complete this topic Meningococcal Vaccine Aged Out No hector lesli eligible based on patient's age to complete this topic RSV Immunizations Under 20 Months Aged Out No longer eligible based on patient's age to complete this topic
--- OUTSIDE RECORDS SUMMARY | 2024-07-15 08:49 | XMS_ITS | Encounter Summary ---
Author Organization [facility] Address [address] [place] [address] Care Team Providers Care Bobbin Drier Name Role Phone Unavailable Primary Care Provider [...] on file Legal Sex Female 4:46 AM FLOWER GRADER Gender Identity Not on file Sexual Orientation Not on file documented as of this encounter Plan of Treatment Not on file documented as of this encounter Visit Diagnoses Not on filedocumented in this encounter
--- OUTSIDE RECORDS SUMMARY | 2024-07-15 08:49 | XMS_ITS | Clinical Summary ---
Author Organization [facility] Address [address] [place] [address] Care Team Providers Care Mental Health Aide Name Role Phone Evangelista Carlson MD Primary Care Provide r Berny Vazquez MD Unavailable [phone] Allergies Active Allergy Reactions Criticality Noted Date [...] parkinsonism. 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 Assessment & Plan (01/14/2021 12:22 PM HIGH SCHOOL MATHEMATICS TEACHER): She had stage 3 parkinsonism characterized by [...] reevaluate her in 6 months with our Color Straining Bag Washer and repeat a video at that time. [...] on file Legal Sex Female 1:49 AM HIGH SCHOOL MATHEMATICS TEACHER Gender Identity Female 07/15/2021 8:28 PM CDT [...] Payer ( fective 2003-Present) Name:Lisa Tovar Member ID:[id number] Relation to Subscriber:Self Name:Lisa Tovar Subscriber ID:[id number] Payer ID:[id number] Group ID:Not on file Type:MEDICARE TRADITIONAL Address: [place] [phone] [facility] MEDICARE [facility] Care Teams Mental Health Aide Relationship Specialty Start Date End Date Evangelista Carlson MD [address] [facility] [place] [address] PCP - General Emergency Medicine 07/26/20 Berny Vazquez MD [facility] [place] [address] Referring Physician Allergy and Immunology 01/11/21
--- OUTSIDE RECORDS SUMMARY | 2024-07-15 08:49 | XMS_ITS | Clinical Summary ---
Author Organization [facility] Address [address] [facility] Attn: Epic Prelude ADT TATY ANGEL [address] Care Team Providers Care Mold Maker Apprentice Name Role Phone Unavailable Primary Care Provider Unavailabl e Social History Tobacco Use Types Packs/Day Years Used Date Smoking Tobacco: Never Assessed Comments Unknown Sex and Gender Information Value Date Recorded Sex Assigned at Not on file Legal Sex Female 4:46 AM GLASS FURNACE TENDER Gender Identity Not on file Sexual [...]
[2024-07-15 09:10] LABS: Basophils Absolute Auto 0.1 K/mm3 (0.0-0.1); Basophils Percent Auto 0.9 % (0.2-1.2); Eosinophils Absolute Auto 0.1 K/mm3 (0-0.3); Eosinophils Percent Auto 1.8 % (0-4.4); Hematocrit 36.6 % (37.0-47.0); Hemoglobin 11.8 g/dL (12.0-15.0); Immature Granulocyte Absolute 0.04 K/mm3 (0.00-0.031); Immature Granulocyte Percent A 0.5 % (0-0.5); Lymphocytes Percent Auto 10.3 % (18.3-44.2); Mean Corpuscular HGB Conc 32.2 g/dl (32-36); Mean Corpuscular Hemoglobin 30.9 pg (26-34); Mean Corpuscular Volume 95.8 fl (80-100); Mean Platelet Volume 9.8 fl (7.4-10.4); Monocytes Absolute Auto 0.8 K/mm3 (0.1-0.6); Monocytes Percent Auto 9.8 % (2.6-8.5); Neutrophils Percent Auto 76.7 % (45.5-73.1); Platelet Count Result 312 k/mm3 (150-375); Red Blood Count 3.82 M/mm3 (4.2-5.4); Red Cell Distribution Width 14.7 % (11.5-14.5); White Blood Count 7.8 K/mm3 (4.5-10.0)
[2024-07-15 09:17] LABS: Alanine Aminotransferase 23 U/L (6-35); Albumin Level 3.6 g/dL (3.5-5.1); Alkaline Phosphatase 119 U/L (38-126); Anion Gap 8 mmol/L (4-12); Aspartate Amino Transferase 36 U/L (14-36); Bilirubin,Total 0.5 mg/dL (0.2-1.3); Blood Urea Nitrogen 17 mg/dL (7-17); Calcium 8.9 mg/dL (8.4-10.2); Carbon Dioxide 28 mmol/L (22-30); Chloride 102 mmol/L (98-107); Estimated CRCL calculation 34 ml/min; Estimated Glomerular Filt Rate 56; Glucose 113 mg/dL (65-110); Lipase 72 U/L (23-300); Potassium 3.9 mmol/L (3.4-5.0); Sodium 138 mmol/L (137-145)
--- OUTSIDE RECORDS SUMMARY | 2024-07-15 09:18 | XMS_ITS | Clinical Summary ---
Author Organization [facility] Address [address] [place] [address] Care Team Providers Care Beef Breaker Name Role Phone Unavailable Primary Care Provider [...]
--- OUTSIDE RECORDS SUMMARY | 2024-07-15 09:18 | XMS_ITS | Clinical Summary ---
Author Organization [facility] Address [address] [facility] Attn: Epic Prelude ADT TATY ANGEL [address] Care Team Providers Care Customer Services Supervisor Name Role Phone Unavailable Primary Care Provider Unavailabl e Social History Tobacco Use Types Packs/Day Years Used Date Smoking Tobacco: Never Assessed Comments Unknown Sex and Gender Information Value Date Recorded Sex Assigned at Not on file Legal Sex Female 4:46 AM MANAGER REVENUE Gender Identity Not on file Sexual Orientation [...]
--- OUTSIDE RECORDS SUMMARY | 2024-07-15 09:18 | XMS_ITS | Encounter Summary ---
Author Organization [facility] Address [address] [place] [address] Care Team Providers Care Frame Catcher Name Role Phone Unavailable Primary Care Provider [...] on file Legal Sex Female 4:46 AM FRUIT GRADER Gender Identity Not on file Sexual Orientation Not on file documented as of this encounter Plan of Treatment Not on file documented as of this encounter Visit Diagnoses Not on filedocumented in this encounter
--- OUTSIDE RECORDS SUMMARY | 2024-07-15 09:18 | XMS_ITS | Continuity of Care Document ---
Author Organization [facility] Address [address] [place] [address] Phone Care Team Providers Care Sausage Cutter Name Role Phone Chet Murray Unavailable Unavailable [...] Copied on Encounter Office/outpat ient Visit, Est [facility], [address], [place], [place], [address], [place] tel:[phone] [facility] No Information 0 Trevor Rosenberg. [address] , [address], [place], [address], [place]. tel:[phone] [facility], [address], [place], [place], [address], [place] tel:[phone] [facility] No Information [address] [employer] . [address] [facility] [address], [place], [place], [address], [place]. tel:[phone] Referring Provider: Chet Smith, [address], [place], [address]. tel:[phone] esquivel Provider: Chrissy Huffman, [address] [facility], [place], [address]. tel:[phone] [facility], [address] [facility] [address], [place], [place], [address], tel:[phone] [facility] No Information 7-200 9 Doimiriam Rosenberg. [address] [facility] , [address], [place], [place], [facility], . tel:[phone] [facility], [address], [place], [place], [address], tel:[phone] [facility] No Information 3-200 8 Trevor Rosenberg. [facility] , [address], [place], [facility], . tel:[phone] [facility], [address] [place] [address] [address], [place], [place], [address], tel:[phone] [facility] No Information 0 8-200 7 Trevor Rosenberg. [facility] , [address], [place], [place], [facility], . tel:[phone] Family History Family Member Type Diagnosis Age At Onset No Information Payers Payer name Insurance type Covered republican ID Authoriza tion(s) [place] [id number] [place] [id number] Social History Type Description Quantity Date Captured [...]
--- OUTSIDE RECORDS SUMMARY | 2024-07-15 09:18 | XMS_ITS | Encounter Summary ---
Author Organization [facility] Address 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
--- OUTSIDE RECORDS SUMMARY | 2024-07-15 09:18 | XMS_ITS | Encounter Summary ---
Author Organization [facility] Address [address] [place] [address] Care Team Providers Care Catering Server Name Role Phone Unavailable Primary Care Provider [...] on file Legal Sex Female 4:46 AM LAUNDERER HAND Gender Identity Not on file Sexual Orientation Not on file documented as of this encounter Plan of Treatment Not on file documented as of this encounter Visit Diagnoses Not on filedocumented in this encounter
--- OUTSIDE RECORDS SUMMARY | 2024-07-15 09:18 | XMS_ITS | Clinical Summary ---
Author Organization [facility] [place] Address [address] [place] [address] Care Team Providers Care Hspt Tutor Name Role Phone Evangelista Carlson MD Primary Care Provide r Berny Vazquez MD Unavailable [phone] Allergies Active Allergy Reactions Criticality Noted Date [...] parkinsonism. Assessment & Plan (03/31/2022 11:14 AM CORPORATE WELLNESS COORDINATOR): She had stage 3 parkinsonism characterized by [...] depression. Assessment & Plan (01/14/2021 12:22 PM CORPORATE WELLNESS COORDINATOR): She had stage 3 parkinsonism characterized by [...] reevaluate her in 6 months with our Furniture Packer and repeat a video at that time. [...] on file Legal Sex Female 1:49 AM CORPORATE WELLNESS COORDINATOR Gender Identity Female 07/15/2021 8:28 PM CDT [...] Payer ( fective 2003-Present) Name:Lisa Tovar Member ID:[id number] Relation to Subscriber:Self Name:Lisa Tovar Subscriber ID:[id number] Payer ID:[id number] Group ID:Not on file Type:MEDICARE TRADITIONAL Address: [place] [id number] [facility] MEDICARE [facility] Care Teams Hspt Tutor Relationship Specialty Start Date End Date Evangelista Carlson MD [address] [facility] [place] [address] PCP - General Emergency Medicine 07/26/20 Berny Vazquez MD [facility] [facility] [place] [address] Referring Physician Allergy and Immunology 01/11/21
--- OUTSIDE RECORDS SUMMARY | 2024-07-15 09:18 | XMS_ITS | Referral Summary ---
Author Organization [facility] [place] [facility] Address [address] [place] [address] Care Team Providers Care Command And Control Specialist Name Role Phone Evangelista Carlson MD Primary Care Provide r Berny Vazquez MD Unavailable [phone] Allergies Active Allergy Reactions Criticality Noted Date [...] parkinsonism. Assessment & Plan (03/31/2022 11:14 AM DIAGRAMMER): She had stage 3 parkinsonism characterized by [...] depression. Assessment & Plan (01/14/2021 12:22 PM DIAGRAMMER): She had stage 3 parkinsonism characterized by [...] reevaluate her in 6 months with our Latin Professor and repeat a video at that time. [...] on file Legal Sex Female 1:49 AM DIAGRAMMER Gender Identity Female 07/15/2021 8:28 PM CDT [...] Treatment Not on file Insurance MEDICARE MEDICARE [facility] [place] [phone] MEDICARE [facility] Care Teams Command And Control Specialist Relationship Specialty Start Date End Date Evangelista Carlson MD [address] [place] [address] PCP - General Emergency Medicine 07/26/20 Berny Vazquez MD [address] [place] [address] Referring Physician Allergy and Immunology 01/11/21
--- OUTSIDE RECORDS SUMMARY | 2024-07-15 09:18 | XMS_ITS | Encounter Summary ---
Author Organization [facility] Address [address] [place] [address] Care Team Providers Care Commander Police Reserves Name Role Phone Unavailable Primary Care Provider [...] on file Legal Sex Female 4:46 AM ART HANDLER Gender Identity Not on file Sexual Orientation Not on file documented as of this encounter Plan of Treatment Not on file documented as of this encounter Visit Diagnoses Not on filedocumented in this encounter
[2024-07-15 09:19] LABS: INR 1.1; Prothrombin Time 14.8 Seconds (11.1-14.7)
[2024-07-15 09:20] LABS: Partial Thromboplastin Time 29.5 Seconds (22.3-36.8)
--- NOTE | 2024-07-15 09:26 | ED.CHESTPAIN ---
HPI - Chest Pain General Chief Complaint: Chest Pain Stated Complaint: chest pain Time Seen by Provider: 07/15/24 09:10 Source: patient Mode of arrival: wheelchair Limitations: no limitations History of Present Illness HPI narrative: This is an 84-year-old female that presents to the emergency department for chest pain. Reports she has left-sided chest pain that is worse with deep breathing. She was been admitted for similar symptoms several times over the last couple of weeks. Recently had a stress test was was negative. Has been treated with Lasix for fluid overload. Reports she took a dose of her prescribed Toradol with improvement in her pain. She is also currently on Ciprofloxacin for UTI that she was seen at urgent care for over the weekend. Denies fever, cough, shortness of breath, lower extremity edema. Related Data Home Medications ?Medication ?Instructions ?Recorded ?Confirmed ?Last Taken ?Type cholecalciferol (vitamin D3) 125 250 mcg PO DAILY 04/07/23 06/28/24 3 Days Ago History mcg (5,000 unit) tablet (Vitamin ~07/12/23 D3) vit C 226 mg-vit E 90 mg-copper 1 cap PO BID 04/07/23 06/28/24 3 Days Ago History 0.8 mg-zinc oxide-lutein 5 mg ~07/12/23 capsule (PreserVision Lutein) gabapentin 300 mg capsule 300 mg PO .COMPLEX 06/08/23 06/28/24 07/15/23 History ktqyyzic-hudc-vayy 8 mg-folic 400 1 tablet PO DAILY 07/10/23 06/28/24 3 Days Ago History mcg-K 50 mcg-lutein 300 mcg tablet ~07/12/23 (Centrum Silver Women) bupropion HCl 150 mg tablet,12 hr 150 mg PO DAILY 06/18/24 06/28/24 Unknown History sustained-release fluticasone furoate 100 1 inh inhalation DAILY 06/22/24 06/28/24 Unknown History mcg-vilanterol 25 mcg/dose inhalation powder (Breo Ellipta) Allergies Allergy/AdvReac Type Severity Reaction Status Date / Time propoxyphene (From Darvon) Allergy Severe Swelling Verified 07/15/24 09:29 of Lip/Tongue/Throat donepezil (From Aricept) AdvReac Intermediate Abdominal Verified 07/15/24 09:29 Pain Review of Systems Review of Systems: CONSTITUTIONAL: Denies fever CARDIOVASCULAR: Reports chest pain. Denies edema. RESPIRATORY: Denies cough or dyspnea. All systems reviewed & are unremarkable except as noted in HPI and below PMFSH Past Medical History Medical History Dermatitis Irritant contact dermatitis Self-catheterizes urinary bladder Left inguinal hernia Encounter for other specified surgical aftercare Incarcerated right inguinal hernia Partial small bowel obstruction Right inguinal hernia Lipoma of colon Hx of adenomatous colonic polyps Restless legs syndrome Acute blood loss anemia Hyponatremia Pneumoperitoneum Spleen laceration Constipation Bloating Belching symptom Diverticulosis Frequent UTI Memory loss Mild persistent asthma without complication Presbycusis, bilateral Pure hypercholesterolemia Unsteady gait Vitamin D deficiency Insomnia Anxiety Hypertension Asthma GERD (gastroesophageal reflux disease) Depression Surgical History Surgical History History of colonoscopy , complicated by splenic & injury per patient H/O inguinal hernia repair Robotic laparoscopic repair incarcerated right inguinal hernia, robotic laparoscopic repair left inguinal hernia, both repairs with mesh on 07/14 History of tubal ligation History of cholecystectomy Family History Family History Father Family history of transient ischemic attacks Patient's father is Cerebrovascular accident, Onset Age: 77 Sibling Family history of chronic obstructive pulmonary disease Family history of lung cancer Patient's brother is Mother Family history of transient ischemic attacks, Onset Age: 91 Other Family history of schizophrenia Social History Social History Social History: Surrogate medical decision maker: Che Field or Steffany Bradshaw, daughters. Code status: Full code. Caffeine-none Smoking packs per day: 2 Smoking cigarettes per day: 40.0 Years smoked: 4 Smoking pack-years: 8.00 Smoking status: Former smoker Second hand tobacco smoke exposure: No Alcohol intake: former Substance use: never Substance use type: does not use Do You Feel Safe in your Home?: Yes Lack of Transportation: No Lack of Food: Never True Current Housing: I Have Housing Concerned About Future Housing: No Difficulty Paying Gas/Electric Bills: No Difficulty Paying for Meds: No Currently Unemployed: No Education: Master's Degree or Higher Difficulty w/ Childcare or Family Care: No Living arrangements: alone Spiritual care concerns: No Agree to blood products: Yes Exam Narrative: GENERAL: Elderly, well-nourished, and in no acute distress. HEAD: Normocephalic, atraumatic. EYES: EOMI. ENT: Nares clear, no rhinorrhea or epistaxis. Mucous membranes moist. Oropharynx without tonsillar hypertrophy exudate or other lesions. NECK: Supple. No adenopathy or masses. CHEST: Clear to auscultation. No respiratory distress. No wheezes rales or rhonchi HEART: Regular rate and rhythm. No murmur heard. Normal peripheral pulses. EXTREMITIES: Normal range of motion. No edema. SKIN: Warm, dry, no rash. NEURO: No focal deficits. Alert and oriented x3. PSYCH: Normal mood and affect Course Course Emergency Course: Patient and family updated on workup and agree with plan of care Vital Signs Vital signs: Vital Signs Temperature 97.9 F 07/15/24 08:52 Pulse Rate 94 07/15/24 08:52 Respiratory Rate 22 H 07/15/24 08:52 Blood Pressure 119/72 07/15/24 08:52 Pulse Oximetry 96 07/15/24 08:52 Oxygen Delivery Room Air 07/15/24 08:52 Temperature 97.9 F 07/15/24 08:52 Pulse Rate 88 07/15/24 11:46 Respiratory Rate 20 07/15/24 11:46 Blood Pressure 104/64 07/15/24 11:46 Pulse Oximetry 95 07/15/24 11:46 Oxygen Delivery Room Air 07/15/24 08:55 MDM - Chest Pain MDM Narrative Medical decision making narrative: Patient presents the emergency department for pleuritic chest pain. She is afebrile and nontoxic appearing. Oxygen saturation is normal on room air. Vital signs are stable. Cbc without leukocytosis. Metabolic panel without concerning findings. EKG appears unchanged, baseline and 3 hour troponin are negative. BNP is 2120, which appears to be downtrending. D-dimer elevated, CTA of the chest obtained. No PE, aortic dissection or aneurysm. She does have small to moderate bilateral pleural effusions, which appear slightly improved from previous study. Patient and family were updated on workup. She was recently admitted and had a negative stress test. Her pain seems to be pleuritic in nature. Likely due to her pleural effusions. Once again she is maintaining normal oxygen saturation, is not endorsing any shortness of breath. Encouraged to continue her Lasix as prescribed and have follow-up with her primary provider. She was given warnings to return to the ER Differential Diagnosis Differential diagnosis: Likely stable angina, atypical chest pain, costochondritis and other (Pleurisy) Medical Records Data Attestation: I reviewed the patient's medical records. Medical records narrative: IMPRESSION: 1. Normal myocardial perfusion at rest and during stress. 2. Left ventricular ejection fraction measuring 55%. Lab Data Attestation: I reviewed the patient's lab results. 07/15/24 09:00 07/15/24 09:00 Labs: Lab Results 07/15/24 07/15/24 07/15/24 Range/Units 08:59 09:00 12:07 WBC 7.8 (4.5-10.0) K/mm3 RBC 3.82 L (4.2-5.4) M/mm3 Hgb 11.8 L (12.0-15.0) g/dL Hct 36.6 L (37.0-47.0) % MCV 95.8 (80-100) fl MCH 30.9 (26-34) pg MCHC 32.2 (32-36) g/dl RDW 14.7 H (11.5-14.5) % Plt Count 312 (150-375) k/mm3 MPV 9.8 (7.4-10.4) fl Immature Gran % (Auto) 0.5 (0-0.5) % Neut % (Auto) 76.7 H (45.5-73.1) % Lymph % (Auto) 10.3 L (18.3-44.2) % [place] % (Auto) 9.8 H (2.6-8.5) % Eos % (Auto) 1.8 (0-4.4) % Baso % (Auto) 0.9 (0.2-1.2) % Lymph # (Auto) 0.80 L (0.9-3.2) K/mm3 [place] # (Auto) 0.8 H (0.1-0.6) K/mm3 Eos # (Auto) 0.1 (0-0.3) K/mm3 Baso # (Auto) 0.1 (0.0-0.1) K/mm3 Abs Immat Gran (auto) 0.04 H (0.00-0.031) K/mm3 Absolute Neuts (auto) 6.0 (1.3-6.7) K/mm3 Absolute Nucleated RBC 0.000 (0.0-0.012) K/mm3 Nucleated RBC % 0.0 (0.0-0.2) % PT 14.8 H (11.1-14.7) Seconds INR 1.1 APTT 29.5 (22.3-36.8) Seconds D-Dimer 2.10 H (<0.48) ug/mL Sodium 138 (137-145) mmol/L Potassium 3.9 (3.4-5.0) mmol/L Chloride 102 (98-107) mmol/L Carbon Dioxide 28 (22-30) mmol/L Anion Gap 8 (4-12) mmol/L BUN 17 (7-17) mg/dL Creatinine 0.95 (0.7-1.0) mg/dL Estim Creat Clear Calc 34 ml/min Estimated GFR 56 L (59 - ) Glucose 113 H (65-110) mg/dL Calcium 8.9 (8.4-10.2) mg/dL Total Bilirubin 0.5 (0.2-1.3) mg/dL AST 36 (14-36) U/L ALT 23 (6-35) U/L Alkaline Phosphatase 119 (38-126) U/L Troponin I < 0.012 < 0.012 (0.000-0.034) ng/mL NT-Pro-B Natriuret Pep 2120 H (19.9-100) pg/mL Total Protein 6.0 L (6.3-8.2) g/dL Albumin 3.6 (3.5-5.1) g/dL Lipase 72 (23-300) U/L Imaging Data Radiologist's impression: ITS Impressions Chest X-Ray 07/15/24 09:17 IMPRESSION: 1. Mild pulmonary edema with persistent small bilateral pleural effusions. 2. Retrocardiac consolidation in the left lower lung zones most likely associated atelectasis although differential includes pneumonia. Chest CTA 07/15/24 13:23 Impression: No evidence of pulmonary embolus, aortic dissection, or aortic aneurysm. Vrmxu-cv-zjqnorrb bilateral pleural effusions with bibasilar atelectatic change. ECG Data EKG #1: ECG completion date: 07/15/24 EKG Interpretation: normal rate, sinus rhythm, RBBB, normal QT and no acute changes (compared to EKG 07/01) Critical Care Time Critical Care Time Critical Care Time: No Discharge Plan Discharge Clinical Impression: Pleuritic chest pain, Pleural effusion Patient Disposition: Home Condition: Stable Instructions: Chest Pain (ED), Pleural Effusion (DC) Additional Instructions: Return to the emergency department if you experience fever, worsening, difficulty breathing, or any other symptoms that are concerning to you. Continue Lasix as prescribed. Tylenol or anti-inflammatories as needed for pain Follow up with your primary care doctor Patient Language: Algerian Prescriptions: No Action levofloxacin 250 mg tablet 250 mg PO DAILY 5 Days Qty: 5 0RF ciprofloxacin HCl 250 mg tablet 250 mg PO Q12H Qty: 20 0RF fluticasone furoate-vilanterol [Breo Ellipta] 100-25 mcg/dose blister with device 1 inh inhalation DAILY Centrum Silver Women 8 mg iron-400 mcg-50 mcg Tablet 1 tablet PO DAILY bupropion HCl 150 mg tablet sustained-release 12 hr 150 mg PO DAILY Rx Instructions: TAKE 1 TABLET BY MOUTH EVERY MORNING pantoprazole 40 mg Tablet,Delayed Release (Dr/Ec) 40 mg PO QAM Qty: 30 0RF metoprolol succinate 25 mg tablet extended release 24 hr 25 mg PO DAILY Qty: 30 0RF hydrocodone-acetaminophen 5-325 mg Tablet 1 tablet PO Q4H PRN (Reason: Pain Rated 4-6) Qty: 20 0RF lidocaine [Lidoderm] 5 % Adhesive Patch,Medicated 1 patch transdermal DAILY Qty: 30 0RF diclofenac sodium [Arthritis Pain (diclofenac)] 1 % gel 2 g topical QID Qty: 100 0RF Rx Instructions: apply to single elbow, wrist or hand; for hand includes palm/fingers/back of hand ketorolac 10 mg tablet 10 mg PO Q8H PRN (Reason: pain) Qty: 10 0RF Rx Instructions: maximum total duration of 5 days from all oral, intranasal, or parenteral formulations furosemide 20 mg tablet 20 mg PO BID Qty: 60 0RF PreserVision Lutein 226-90-0.8-5 mg Capsule 1 cap PO BID cholecalciferol (vitamin D3) [Vitamin D3] 125 mcg (5,000 unit) Tablet 250 mcg PO DAILY gabapentin 300 mg capsule 300 mg PO .COMPLEX Rx Instructions: 300 mg orally in the AM, 2 in PM, and 1 HS; memantine 10 mg tablet 10 mg PO DAILY Qty: 90 2RF potassium chloride 20 mEq tablet,ER particles/crystals See Rx Instructions .ROUTE .COMPLEX Qty: 90 2RF Dose Instruction: TAKE 1 TABLET BY MOUTH DAILY Rx Instructions: TAKE 1 TABLET BY MOUTH DAILY trazodone 50 mg tablet See Rx Instructions .ROUTE .COMPLEX Qty: 90 2RF Dose Instruction: TAKE 1 TABLET BY MOUTH EVERY DAY AT BEDTIME NEEDED FOR SLEEP Rx Instructions: TAKE 1 TABLET BY MOUTH EVERY DAY AT BEDTIME NEEDED FOR SLEEP clonazepam 0.5 mg tablet 0.5 mg PO HS Qty: 30 2RF Follow-up/Referrals: Evangelista Carlson MD [Primary Care Provider] -
[2024-07-15 09:29] LABS: Troponin I < 0.012 ng/mL (0.000-0.034)
[2024-07-15 10:04] LABS: NT Pro B Type Natriuretic Pept 2120 pg/mL (19.9-100)
[2024-07-15] MEDS: ACETAMINOPHEN 500 MG TABLET 1000 MG PO (10:05)
[2024-07-15 12:36] LABS: Troponin I < 0.012 ng/mL (0.000-0.034)
[2024-07-15] MEDS: MORPHINE SULFATE (*CRX) 2 MG/ML INJ IV PUSH (12:39)
--- NOTE | 2024-07-15 14:34 | ECG_ITS ---
Test Date: 2024-07-15 12:02:29 Measurements Intervals [place] Rate: 87 P: 37 UT: 190 QRS: -68 QRSD: 150 T: 13 QT: 435 QTc: 524 Interpretive Statements SINUS RHYTHM RIGHT BUNDLE BRANCH BLOCK [120+ ms QRS DURATION, UPRIGHT V1, 40+ ms S IN I/aVL/V4/V5/V6] LEFT ANTERIOR FASCICULAR BLOCK [QRS AXIS <= -45, QR IN I, RS IN II] Compared to ECG 07/15/2024 08:54:22 No significant changes Electronically Signed On 07-15-2024 21:57:42 CDT by Scar Boswell M.D.
== END 2024-07-15 13:45 | disposition home or self-care (01) ==
PROVIDERS: Emergency Medicine; Emergency Provider Physician Assistant; PCP Emergency Medicine
DX: R07.81 Pleurodynia (principal); J90 Pleural effusion, not elsewhere classified; E78.00 Pure hypercholesterolemia, unspecified; E55.9 Vitamin D deficiency, unspecified; I10 Essential (primary) hypertension; K21.9 Gastro-esophageal reflux disease without esophagitis; F41.8 Other specified anxiety disorders; J45.909 Unspecified asthma, uncomplicated; Z87.891 Personal history of nicotine dependence
CPT/HCPCS: 36415; 71045; 71275; 80053; 83690; 83880; 84484; 85025; 85380; 85610; 85730; 93005; 96374; 99284; A9270; J2270; Q9967

== ENCOUNTER 2024-07-29 16:19 | Outpatient (NON) | payer MEDICARE, SELFPAY ==
--- OUTSIDE RECORDS SUMMARY | 2024-07-29 16:23 | XMS_ITS | Continuity of Care Document ---
Author Organization [facility] Address [address] [place] [address] Phone Care Team Providers Care Lumber Marker Name Role Phone Chet Murray Unavailable Unavailable [...] Copied on Encounter Office/outpat ient Visit, Est formerly [facility], [address], [place], [place], [id number], [place] tel:[phone] [facility] No Information 0 Trevor Rosenberg. [address] , [address], [place], [address], [place]. tel:[phone] formerly [facility], [address], [place], [place], [id number], [place] tel:[phone] [facility] No Information [address] [employer] . [address], [address], [place], [place], [address], [place]. tel:[phone] Referring Provider: Chet Smith, [address], [place], [address]. tel:[phone] esquivel Provider: Chrissy Huffman, [address], [place], [address]. tel:[phone] [facility], [address], [place], [place], [address], tel:[phone] [facility] No Information 7-200 9 Doimiriam Rosenberg. [address] , [address], [place], [place], [facility], . tel:[phone] formerly [facility], [address], [place], [place], [id number], tel:[phone] [facility] No Information 3-200 8 Trevor Rosenberg. [facility] , [address], [place], [place], [facility], . tel:[phone] formerly [facility], [address] [place] [address] [address], [place], [place], [address], tel:[phone] [facility] No Information 0 8-200 7 Trevor Rosenberg. [facility] , [address], [place], [place], [facility], . tel:[phone] Family History Family Member Type Diagnosis Age At Onset No Information Payers Payer name Insurance type Covered alliance party ID Authoriza tion(s) [place] [id number] [place] [id number] Social History Type Description Quantity Date Captured [...]
--- OUTSIDE RECORDS SUMMARY | 2024-07-29 16:23 | XMS_ITS | Encounter Summary ---
Author Organization [facility] Address 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
--- OUTSIDE RECORDS SUMMARY | 2024-07-29 16:23 | XMS_ITS | Clinical Summary ---
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
--- OUTSIDE RECORDS SUMMARY | 2024-07-29 16:23 | XMS_ITS | Encounter Summary ---
Author Organization [facility] Address 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
--- OUTSIDE RECORDS SUMMARY | 2024-07-29 16:23 | XMS_ITS | Encounter Summary ---
Author Organization [facility] Address [address] [place] [address] Care Team Providers Care Telecommunications Network Planner Name Role Phone Unavailable Primary Care Provider [...] on file Legal Sex Female 4:46 AM TAPPER HELPER Gender Identity Not on file Sexual Orientation Not on file documented as of this encounter Plan of Treatment Not on file documented as of this encounter Visit Diagnoses Not on filedocumented in this encounter
--- OUTSIDE RECORDS SUMMARY | 2024-07-29 16:23 | XMS_ITS | Encounter Summary ---
Author Organization [facility] Address 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
[2024-07-29 16:45] LABS: Add Urine Microscopic? YES; Appearance Urine Clear (Clear); Bacteria Urine 4+ /hpf; Bilirubin Urine Negative (Negative); Blood Urine Negative (Negative); Color Urine Yellow (Yellow); Glucose Urine UA Negative (Negative); Ketones Urine Negative (Negative); Leukocyte Esterase Ur 2+ LEU/UL (Negative); Nitrate Urine Positive (Negative); Non Pathogenic Casts 0-2; Protein Urine Negative (Negative); RBC Urine 0-2 /hpf (0-2); Specific Grav Ur 1.014 (1.001-1.035); Squamous Epithelial Cell Urine None Seen /hpf (Few); Urobilinogen Urine 0.2 mg/dL (<2.0)
== END 2024-07-29 16:20 | disposition home or self-care (01) ==
LOC: ANHLAB 16:22
PROVIDERS: PCP Emergency Medicine; Visit Provider Emergency Medicine
DX: N39.0 Urinary tract infection, site not specified (principal)
CPT/HCPCS: 81001; 87086; 87186

== ENCOUNTER 2024-08-12 12:35 | Outpatient (NON) | payer MEDICARE, SELFPAY ==
--- OUTSIDE RECORDS SUMMARY | 2024-08-12 12:38 | XMS_ITS | Clinical Summary ---
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
--- OUTSIDE RECORDS SUMMARY | 2024-08-12 12:38 | XMS_ITS | Encounter Summary ---
Author Organization [facility] Address 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
--- OUTSIDE RECORDS SUMMARY | 2024-08-12 12:39 | XMS_ITS | Referral Summary ---
Author Organization [facility] Address [address] [place] [address] Care Team Providers Care Hand Fabric Cutter Name Role Phone Evangelista Carlson MD Primary Care Provide r Berny Vazquez MD Unavailable [phone] Allergies Active Allergy Reactions Criticality Noted Date [...] parkinsonism. Assessment & Plan (03/31/2022 11:14 AM SHELLACKER): She had stage 3 parkinsonism characterized by [...] depression. Assessment & Plan (01/14/2021 12:22 PM SHELLACKER): She had stage 3 parkinsonism characterized by [...] reevaluate her in 6 months with our Cured Meat Packing Supervisor and repeat a video at that time. [...] on file Legal Sex Female 1:49 AM SHELLACKER Gender Identity Female 07/15/2021 8:28 PM CDT [...] A M CDT Height 165.1 cm (5' 5) 09/15/2022 9:40 AM CDT Body Mass Index 22.23 09/15/2022 9:40 AM CDT Plan of Treatment Not on file Insurance MEDICARE MEDICARE [facility] [place] [id number] MEDICARE [employer] Care Teams Hand Fabric Cutter Relationship Specialty Start Date End Date Evangelista Carlson MD [address] [place] [address] PCP - General Emergency Medicine 07/26/20 Berny Vazquez MD [address] [place] [address] Referring Physician Allergy and Immunology 01/11/21
--- OUTSIDE RECORDS SUMMARY | 2024-08-12 12:39 | XMS_ITS | Encounter Summary ---
Author Organization [facility] Address [address] [place] [address] Care Team Providers Care Clinical Project Assistant Name Role Phone Unavailable Primary Care Provider [...] on file Legal Sex Female 4:46 AM PLATE CLEANER Gender Identity Not on file Sexual Orientation Not on file documented as of this encounter Plan of Treatment Not on file documented as of this encounter Visit Diagnoses Not on filedocumented in this encounter
--- OUTSIDE RECORDS SUMMARY | 2024-08-12 12:39 | XMS_ITS | Encounter Summary ---
Author Organization [facility] Address [address] [place] [address] Care Team Providers Care Senior Coldfusion Developer Name Role Phone Unavailable Primary Care Provider [...] on file Legal Sex Female 4:46 AM PROGRAMMING SPECIALIST Gender Identity Not on file Sexual Orientation Not on file documented as of this encounter Plan of Treatment Not on file documented as of this encounter Visit Diagnoses Not on filedocumented in this encounter
--- OUTSIDE RECORDS SUMMARY | 2024-08-12 12:39 | XMS_ITS | Clinical Summary ---
Author Organization [facility] [place] Address [address] [place] [address] Care Team Providers Care Engraver Picture Name Role Phone Evangelista Carlson MD Primary Care Provide r Berny Vazquez MD Unavailable Allergies Active Allergy Reactions Criticality Noted Date [...] parkinsonism. Assessment & Plan (03/31/2022 11:14 AM PLATING OPERATOR): She had stage 3 parkinsonism characterized by [...] depression. Assessment & Plan (01/14/2021 12:22 PM PLATING OPERATOR): She had stage 3 parkinsonism characterized by [...] reevaluate her in 6 months with our Boring And Filling Machine Operator and repeat a video at that time. [...] on file Legal Sex Female 1:49 AM PLATING OPERATOR Gender Identity Female 07/15/2021 8:28 PM CDT [...] 5 season) 2023 04/24/2020, 04/03/2020 Influenza Vaccine (Season Ended) 2024 11/23/2019, 12/06/2018, 12/23/2017, Additional history exists DTaP/Tdap/Td Vaccine (2 - Td or Tdap) 01/06/2027 01/06/2017 Insurance MEDICARE MEDICARE Member Subscriber Plan / Payer ( fective 2003-Present) Name:Lisa Tovar Member ID:[id number] Relation to Subscriber:Self Name:Lisa Tovar Subscriber ID:[id number] Payer ID:[id number] Group ID:Not on file Type:MEDICARE TRADITIONAL Address: [place] [id number] [facility] MEDICARE [facility] Care Teams Engraver Picture Relationship Specialty Start Date End Date Evangelista Carlson MD [address] [place] [address] PCP - General Emergency Medicine 07/26/20 Berny Vazquez MD [facility] [address] Referring Physician Allergy and Immunology 01/11/21
--- OUTSIDE RECORDS SUMMARY | 2024-08-12 12:39 | XMS_ITS | Continuity of Care Document ---
Author Organization [facility] Address [address] [place] [address] Phone Care Team Providers Care Cobol Engineer Name Role Phone Chet Murray Unavailable [...] Copied on Encounter Office/outpat ient Visit, [facility], [address], [place], [place], [id number], [place] tel:[phone] [facility] No Information 0 Trevor Rosenberg. [address] , [address], [place], [address], [place]. tel:[phone] [facility], [address], [place], [place], [address], [place] tel:[phone] [facility] No Information 2 0 [employer] . [address] [facility], [address], [place], [place], [address], [place]. tel:[phone] Referring Provider: Chet Smith, [address], [place], [address]. tel:[phone] esquivel Provider: Chrissy Huffman, [address] [facility] [address], [place], [address]. tel:[phone] [facility], [address], [place], [place], [address], tel:[phone] [facility] No Information 7-200 9 Doimiriam Rosenberg. [address] [facility] , [address], [place], [place], [facility], . tel:[phone] [facility], [address], [place], [place], [address], tel:[phone] [facility] No Information 3-200 8 Trevor Rosenberg. [facility] [address] [facility] , [address], [place], [place], [facility], . tel:[phone] [facility], [address] [place] [address] [address], [place], [place], [address], tel:[phone] [facility] No Information 0 8-200 7 Trevor Rosenberg. [facility] , [address], [place], [place], [facility], . tel:[phone] Family History Family Member Type Diagnosis Age At Onset No Information Payers Payer name Insurance type Covered constitution party ID Authoriza tion(s) [place] [id number] [place] [id number] Social History Type Description Quantity Date Captured [...]
--- OUTSIDE RECORDS SUMMARY | 2024-08-12 12:39 | XMS_ITS | Encounter Summary ---
Author Organization [facility] Address [address] [place] [address] Care Team Providers Care Mophead Trimmer And Wrapper Name Role Phone Unavailable Primary Care Provider [...] on file Legal Sex Female 4:46 AM OYSTERMAN Gender Identity Not on file Sexual Orientation Not on file documented as of this encounter Plan of Treatment Not on file documented as of this encounter Visit Diagnoses Not on filedocumented in this encounter
[2024-08-12 13:33] LABS: Add Urine Microscopic? YES; Appearance Urine Clear (Clear); Bacteria Urine 4+ /hpf; Bilirubin Urine Negative (Negative); Blood Urine Non-Hemolyzed Trace (Negative); Color Urine Yellow (Yellow); Glucose Urine UA Negative (Negative); Ketones Urine Negative (Negative); Leukocyte Esterase Ur 3+ LEU/UL (Negative); Nitrate Urine Positive (Negative); Protein Urine Trace mg/dL (Negative); RBC Urine 0-2 /hpf (0-2); Specific Grav Ur 1.012 (1.001-1.035); Squamous Epithelial Cell Urine None Seen /hpf (Few); Urobilinogen Urine 0.2 mg/dL (<2.0); WBC Urine >100 /hpf (0-3); pH Urine 7.5 (5.0-9.0)
== END 2024-08-12 12:36 | disposition home or self-care (01) ==
LOC: ANHLAB 12:36
PROVIDERS: PCP Emergency Medicine; Visit Provider Emergency Medicine
DX: N39.0 Urinary tract infection, site not specified (principal)
CPT/HCPCS: 81001; 87086; 87186

== ENCOUNTER 2024-08-31 06:37 | Outpatient (CLI) | payer MEDICARE, SELFPAY ==
[2024-08-31 07:47] LABS: Alanine Aminotransferase 29 U/L (6-35); Albumin Level 3.8 g/dL (3.5-5.1); Alkaline Phosphatase 81 U/L (38-126); Anion Gap 8 mmol/L (4-12); Aspartate Amino Transferase 40 U/L (14-36); Bilirubin,Total 0.6 mg/dL (0.2-1.3); Blood Urea Nitrogen 20 mg/dL (7-17); Calcium 9.1 mg/dL (8.4-10.2); Carbon Dioxide 29 mmol/L (22-30); Chloride 101 mmol/L (98-107); Estimated Glomerular Filt Rate 47; Glucose 82 mg/dL (65-110); Potassium 3.8 mmol/L (3.4-5.0); Sodium 138 mmol/L (137-145); Total Protein 6.4 g/dL (6.3-8.2)
[2024-08-31 08:04] LABS: Vitamin D 25 Hydroxy 89.6 ng/mL
== END 2024-08-31 06:38 | disposition home or self-care (01) ==
PROVIDERS: PCP Emergency Medicine; Visit Provider Emergency Medicine
DX: R74.8 Abnormal levels of other serum enzymes (principal); N18.9 Chronic kidney disease, unspecified; E78.5 Hyperlipidemia, unspecified; E55.9 Vitamin D deficiency, unspecified
CPT/HCPCS: 36415; 80053; 82306

== ENCOUNTER 2024-12-10 16:15 | Emergency (ER) | payer MEDICARE, SELFPAY ==
--- NOTE | ~2024-12-10 | XR_ITS ---
EXAMINATION: XR abdomen/kub 1V, 12/10/2024 16:34 CDT HISTORY: mucous coming from rectum COMPARISON: No comparisons available. Technique: 3 view. Findings: Bowel gas pattern unremarkable. No obstruction. No free air. No abnormal calcifications No acute osseous abnormality. Impression: 1. No acute abnormality. Reviewed, dictated and finalized at location P. Impression: 1. No acute abnormality.
[2024-12-10 16:25] VITALS: BP 109/78; PULSE 101; RESP 16; TEMP 36.6; O2SAT 99
--- NOTE | 2024-12-10 16:33 | ED_ITS ---
HPI - Nausea/Vomiting/Diarrhea General Chief complaint: Nausea/Vomiting/Diarrhea Stated complaint: DIARRHEA Time Seen by Provider: 12/10/24 16:30 Source: patient Mode of arrival: ambulatory Limitations: no limitations History of Present Illness HPI Narrative: Lisa is an 84-year-old female patient presenting to the clinic today with complaints of mucus coming from her bowels. Reports she has not had a bowel m ovement in 4 days but is passing a lot of mucus from her bowels. States it is leaking and when she is trying to go the bathroom she notices a lot of mucus when she is passing gas/trying to pass her bowels. Denies any abdominal pain or bloating. No fevers, chills, or body aches. Denies any nausea or vomiting. Denies any blood in her stool. Denies any UTI symptoms or vaginal discharge. States she is leaving town go to [place] on Thursday and does not want have this problem on her trip. History of constipation, small-bowel obstruction, pneumoperitoneum, neurogenic bladder-self caths, frequent UTI, abdominal bloating, colon lipoma, diverticulosis, tubal ligation, cholecystectomy, and bilateral inguinal hernia repair Related Data Home Medications ?Medication ?Instructions ?Recorded ?Confirmed ?Last Taken ?Type vit C 226 mg-vit E 90 mg-copper 1 cap PO BID 04/07/23 12/10/24 3 Days Ago History 0.8 mg-zinc oxide-lutein 5 mg ~ capsule (PreserVision Lutein) mqerztfj-aqzi-bzcg 8 mg-folic 400 1 tablet PO DAILY 12/10/24 3 Days Ago History mcg-K 50 mcg-lutein 300 mcg tablet ~0 07/12/23 (Centrum Silver Women) bupropion HCl 150 mg tablet,12 hr 150 mg PO DAILY 06/0712/10/24 Unknown History sustained-release cholecalciferol (vitamin D3) 250 250 mcg PO DAILY 05/0312/10/24 Unknown History mcg (10,000 unit) capsule Allergies Allergy/AdvReac Type Severity Reaction Status Date / Time propoxyphene (From Darvon) Allergy Severe Swelling Verified 12/10/24 16:28 of Lip/Tongue/Throat donepezil (From Aricept) AdvReac Intermediate Abdominal Verified 12/10/24 16:28 Pain Review of Systems Review of Systems: Pertinent positives per HPI. Patient denies any fever, chills, rash, headache, visual changes, dizziness, cough, runny nose, sore throat, shortness of breath, chest pain, palpitations, nausea, vomiting, diarrhea, constipation, abdominal pain, or any urinary issues. [facility] Past Medical History Medical History Dermatitis Irritant contact dermatitis Self-catheterizes urinary bladder Left inguinal hernia Encounter for other specified surgical aftercare Incarcerated right inguinal hernia Partial small bowel obstruction Right inguinal hernia Lipoma of colon Hx of adenomatous colonic polyps Restless legs syndrome Acute blood loss anemia Hyponatremia Pneumoperitoneum Spleen laceration Constipation Bloating Belching symptom Diverticulosis Frequent UTI Memory loss Mild persistent asthma without complication Presbycusis, bilateral Pure hypercholesterolemia Unsteady gait Vitamin D deficiency Insomnia Anxiety Hypertension Asthma GERD (gastroesophageal reflux disease) Depression Surgical History Surgical History History of colonoscopy , complicated by splenic & injury per patient H/O inguinal hernia repair Robotic laparoscopic repair incarcerated right inguinal hernia, robotic laparoscopic repair left inguinal hernia, both repairs with mesh on 07/14 History of tubal ligation History of cholecystectomy Family History Family History Father Family history of transient ischemic attacks Patient's father is Cerebrovascular accident, Onset Age: 77 Sibling Family history of chronic obstructive pulmonary disease Family history of lung cancer Patient's brother is Mother Family history of transient ischemic attacks, Onset Age: 91 Other Family history of schizophrenia Social History Social History Social History: Surrogate medical decision maker: Che Field or Steffany Leeann, daughters. Code status: Full code. Caffeine-none Smoking packs per day: 2 Smoking cigarettes per day: 40.0 Years smoked: 4 Smoking pack-years: 8.00 Smoking status: Former smoker Second hand tobacco smoke exposure: No Alcohol intake: former Substance use: never Substance use type: does not use Do You Feel Safe in your Home?: Yes Lack of Transportation: No Lack of Food: Never True Current Housing: I Have Housing Concerned About Future Housing: No Difficulty Paying Gas/Electric Bills: No Difficulty Paying for Meds: No Currently Unemployed: No Education: Master's Degree or Higher Difficulty w/ Childcare or Family Care: No Living arrangements: alone Spiritual care concerns: No Agree to blood products: Yes Comments At the time of my signature, I reviewed and agree with the nursing past medical, surgical, social, and family history. There is no relevant family history pertinent to the patient complaint. Exam Narrative: General: Well-developed, well nourished, in no apparent distress. Head: Normocephalic, atraumatic. Cardio: Regular rate and rhythm, s1 and s2 normal, no murmur appreciated. Resp: Clear to auscultation bilaterally, no rhonchi, rales, wheezing or rubs. Abdomen: Soft, pliable, bowel sounds present in all quadrants, non-tender to palpation, no organomegly, no CVAT tenderness. Course Course Emergency Course: Portions of this record may have been created with voice recognition software. Level of Care: Express Care Visit Vital Signs Vital signs: Vital Signs Temperature 36.6 C 12/10/24 16:25 Pulse Rate 101 H 12/10/24 16:25 Respiratory Rate 16 12/10/24 16:25 Blood Pressure 109/78 12/10/24 16:25 Pulse Oximetry 99 12/10/24 16:25 Temperature 36.6 C 12/10/24 16:25 Pulse Rate 101 H 12/10/24 16:25 Respiratory Rate 16 12/10/24 16:25 Blood Pressure 109/78 12/10/24 16:25 Pulse Oximetry 99 12/10/24 16:25 Vital signs reviewed MDM - Nausea/Vomiting/Diarrhea MDM Narrative Medical decision making narrative: At the time of visit patient is resting comfortably on the exam table. Patient appears to be nontoxic. Complaints of passing mucus from her bowels. Reports she has not had a bowel movement in 4 days but is passing a lot of mucus from her bowels. States it is leaking and when she is trying to go the bathroom she notices a lot of mucus when she is passing gas/trying to pass her bowels. Denies any abdominal pain or bloating. No fevers, chills, or body aches. Denies any nausea or vomiting. Denies any blood in her stool. Denies any UTI symptoms or vaginal discharge. States she is leaving town go to [place] on Thursday and does not want have this problem on her trip. History of constipation, small-bowel obstruction, pneumoperitoneum, neurogenic bladder-self caths, frequent UTI, abdominal bloating, colon lipoma, diverticulosis, tubal ligation, cholecystectomy, and bilateral inguinal hernia repair. On exam mario ellsworth has normal abdominal exam. X-ray KUB ordered rule out constipation/blockage Diagnostics: X-ray of the abdomen was negative for any sign of acute abdomen pathology. No evidence of obstruction. Plan: Patient denies any abdominal pain, fever, or blood in her stool. She is passing some mucus from her bowels. Recommend follow-up with her PCP or GI specialist. Supportive measures were discussed with the patient and they voiced understanding discharge instructions and agrees to treatment plan. Return precautions reviewed Differential Diagnosis Differential diagnosis: Likely gastroenteritis, clostridium difficile infection and other (Constipation, mucous with stool) Imaging Data Radiologist's impression: ITS Impressions Abdomen X-Ray 12/10/24 17:04 Impression: 1. No acute abnormality. Discharge Plan Discharge Clinical Impression: Bowel habit changes Patient Disposition: Home Condition: Stable Instructions: Antibiotic Form Additional Instructions: X-ray of the abdomen is negative for any acute abdomen pathology. No obvious sign of constipation, obstruction, or mass. Increase fluids and stay well hydrated Follow-up with your doctor or GI specialist in 3-5 days if symptoms persist. May need further evaluation-CT of abdomen/pelvis or colonoscopy Go to the emergency room if your symptoms worsen-abdominal pain, difficulty passing stool, nausea/vomiting, blood in your stool, or you develop fever Patient Language: Sami Prescriptions: No Action cholecalciferol (vitamin D3) 250 mcg (10,000 unit) capsule 250 mcg PO DAILY gabapentin 300 mg capsule 300 mg PO .COMPLEX Qty: 360 2RF Rx Instructions: 300 mg orally in the AM, 2 in the PM, and 1 HS; Centrum Silver Women 8 mg iron-400 mcg-50 mcg Tablet 1 tablet PO DAILY bupropion HCl 150 mg tablet sustained-release 12 hr 150 mg PO DAILY Rx Instructions: TAKE 1 TABLET BY MOUTH EVERY MORNING PreserVision Lutein 226-90-0.8-5 mg Capsule 1 cap PO BID trazodone 50 mg tablet See Rx Instructions .ROUTE .COMPLEX Qty: 90 2RF Dose Instruction: TAKE 1 TABLET BY MOUTH EVERY DAY AT BEDTIME NEEDED FOR SLEEP Rx Instructions: TAKE 1 TABLET BY MOUTH EVERY DAY AT BEDTIME NEEDED FOR SLEEP pantoprazole 40 mg tablet,delayed release (DR/EC) 40 mg PO QAM Qty: 90 2RF memantine 10 mg tablet See Rx Instructions .ROUTE .COMPLEX Qty: 90 2RF Dose Instruction: TAKE 1 TABLET BY MOUTH DAILY Rx Instructions: TAKE 1 TABLET BY MOUTH DAILY nitrofurantoin monohyd/m-cryst [Macrobid] 100 mg capsule 100 mg PO BID 7 Days Qty: 14 0RF Rx Instructions: must administer with a meal/food metoprolol succinate 25 mg tablet extended release 24 hr See Rx Instructions .ROUTE .COMPLEX Qty: 30 5RF Dose Instruction: TAKE 1 TABLET BY MOUTH DAILY Rx Instructions: TAKE 1 TABLET BY MOUTH DAILY furosemide 40 mg tablet See Rx Instructions .ROUTE .COMPLEX Qty: 90 0RF Dose Instruction: TAKE 1 TABLET BY MOUTH EVERY MORNING Rx Instructions: TAKE 1 TABLET BY MOUTH EVERY MORNING potassium chloride 20 mEq tablet,ER particles/crystals See Rx Instructions .ROUTE .COMPLEX Qty: 90 2RF Dose Instruction: TAKE 1 TABLET BY MOUTH DAILY Rx Instructions: TAKE 1 TABLET BY MOUTH DAILY clonazepam 0.5 mg tablet 0.5 mg PO HS Qty: 30 2RF Follow-up/Referrals: Evangelista Carlson MD [Primary Care Provider, Internal Medicine] Time of Disposition: 17:10 Quality NIHSS Nursing Documentation ED NIHSS nursing documentation: reviewed/agree
== END 2024-12-10 17:18 | disposition home or self-care (01) ==
PROVIDERS: Emergency Provider Nurse Practitioner Family; PCP Emergency Medicine
DX: R19.4 Change in bowel habit (principal); G25.81 Restless legs syndrome; E78.00 Pure hypercholesterolemia, unspecified; E55.9 Vitamin D deficiency, unspecified; I10 Essential (primary) hypertension; K21.9 Gastro-esophageal reflux disease without esophagitis; J45.909 Unspecified asthma, uncomplicated; F41.9 Anxiety disorder, unspecified; F32.A Depression, unspecified
CPT/HCPCS: 74018; 99213; G0463

== ENCOUNTER 2024-12-28 06:32 | Emergency (ER) | payer MEDICARE, SELFPAY ==
--- OUTSIDE RECORDS SUMMARY | 2009-10-17 05:45 | XMS_ITS | Continuity of Care Document ---
Author Organization [facility] Address [address] [place] [address] Phone Care Team Providers Care Metallurgical Laboratory Assistant Name Role Phone Chet Murray Unavailable Unavailable Procedures Procedure Date Office/outpatient Visit, Est Progressive Lens, Polycarb Vision Svcs Frames Purchases Tax - Medical Eye Exam & Treatment No Script Refraction Eye Exam & Treatment Refraction Eye Exam & Treatment Visual Functional Status Assessed Refraction Advance Directives Directive Yes / No Effective Date File Name No Information Encounters Encounter Description Practice Location Reason(s) For Visit Diagnoses Date Provider Providers Copied on Encounter Office/outpat ient Visit, Est [facility], [address], [place], [place], [id number], [place] tel:[phone] [facility] No Information 0 Trevor Rosenberg. [address] , [address], [place], [address], [place]. tel:[phone] [facility], [address], [place], [place], [id number], [place] tel:[phone] [facility] No Information 2 0 [facility] . [address], [address], [place], [place], [id number], [place]. tel:[phone] Referring Provider: Chet Smith, [address], [place], [address]. tel:[phone] esquivel Provider: Chrissy Huffman, [address] [facility], [place], [address]. tel:[phone] [facility], [address], [place], [place], [id number], tel:[phone] [facility] No Information 7-200 9 Doimiriam Rosenberg. [address] [facility] [address] , [address], [place], [place], [facility], . tel:[phone] [facility], [address], [place], [place], [address], tel:[phone] [facility] No Information 3-200 8 Trevor Rosenberg. [facility] [address] , [address], [place], [place], [facility], . tel:[phone] [facility], [address] [place] [address] [address], [place], [place], [address], tel:[phone] [facility] No Information 0 8-200 7 Trevor Rosenberg. [facility] [address] [facility] , [address], [place], [place], [facility], . tel:[phone] Family History Family Member Type Diagnosis Age At Onset No Information Payers Payer name Insurance type Covered alliance party ID Authoriza tion(s) Medicare OR CI [id number] BCBS OR Commercial CI [id number] Social History Type Description Quantity Date Captured Comments Sex Female Smoking Status No Information Chief Complaint And Reason For Visit No Information Reason For Referral Reason For Referral No Information History Of Present Illness Encounter Date Complaint History Of Prese nt Illness No Information Functional Status Date Functional Assessmen t No Information Instructions Date Instruction Additional Infor mation No Information Assessments Type Assessment Date No Information Patient Care Teams Name Effective Dates (start - stop) Status Members No Information
--- NOTE | ~2024-12-28 | CT_ITS ---
EXAMINATION: CT abdomen pelvis w con DATE: 12/28/2024 07:53 INDICATION: Lower gastrointestinal bleed. Diverticulosis. TECHNIQUE: Computed tomography (CT) of the abdomen and pelvis was performed with 100 mL Omnipaque-350 intravenous contrast. Automated exposure control and iterative reconstruction technique were employed. The dose-length product was 292.86 mGy-cm. COMPARISON: None FINDINGS: Mild dependent atelectasis. Bilateral lung bases. Small calcified nodule at the right lung base consistent with old granulomatous disease. Heart size is normal. No pericardial or pleural effusion. Cholecystectomy clips the gallbladder fossa. Liver, spleen, pancreas and bilateral adrenal glands are normal. 6.7 cm left renal cyst. Small region of cortical scarring at the upper pole of the left kidney. Right kidney is normal. Moderate diverticulosis with sigmoid colon predominance without focal inflammatory stranding or bowel wall thickening to suggest diverticulitis. 2.6 x 2.2 cm macroscopic fat attenuation submucosal lipoma in the ascending colon. Small bowel and appendix are normal. Decompressed bladder, uterus and bilateral adnexa are unremarkable. No free intraperitoneal gas or fluid. No pathologically enlarged abdominal or pelvic lymphadenopathy. There is calcified atherosclerosis of the aorta and many of the other arteries. Mild thoracolumbar dextrocurvature with severe lumbar spondylosis. IMPRESSION: 1. Sigmoid predominant diverticulosis without associated wall thickening or adjacent from trace stranding to more specifically suggest diverticulitis. No other acute intra-abdominal/pelvic process. Reviewed, dictated and finalized at location A. IMPRESSION: 1. Sigmoid predominant diverticulosis without associated wall thickening or adj acent from trace stranding to more specifically suggest diverticulitis. No othe r acute intra-abdominal/pelvic process.
[2024-12-28 06:35] VITALS: BP 124/91; PULSE 97; RESP 22; TEMP 36.6; O2SAT 99
--- OUTSIDE RECORDS SUMMARY | 2024-12-28 06:35 | XMS_ITS | Clinical Summary ---
Author Organization [facility] Address [address] Attn: Epic Prelude ADT [place] [address] Care Team Providers Care Canoe Builder Name Role Phone Unavailable Primary Care Provider Unavailabl e Social History Tobacco Use Types Packs/Day Years Used Date Smoking Tobacco: Never Assessed Comments Unknown Sex and Gender Information Value Date Recorded Sex Assigned at Not on file Legal Sex Female 4:46 AM RAILROAD BRAKEMAN Gender Identity Not on file Sexual Orientation Not on file Plan of Treatment Health Maintenance Due Date Last Done Comments DTAP/TDAP/TD VACCINES (1 - Tdap) 1959 PNEUMOCOCCAL VACCINE 50+ YEARS (1 of 1 - PCV) 01/23/19 88 ZOSTER VACCINE (1 of 2) 01/24/1988 OSTEOPOROSIS SCREENING 2003 RSV VACCINE (60+ or ) (1 - 1-dose 75+ series) 2013 INFLUENZA VACCINE (#1) 2024
--- OUTSIDE RECORDS SUMMARY | 2024-12-28 06:35 | XMS_ITS | Clinical Summary ---
Author Organization [facility] Address [address] [place] [address] Care Team Providers Care Narrow Fabric Calenderer Name Role Phone Unavailable Primary Care Provider [...] COVID-19 Vaccine ( - 2023-2 5 season) 2024 Influenza Adult (#1) 2024 Hepatitis A Vaccines Aged Out No long er eligible based on patient's age to complete this topic Meningococcal B Vaccine Aged Out No l onger eligible based on patient's age to complete this topic Meningococcal Vaccine Aged Out No hector lesli eligible based on patient's age to complete this topic RSV Immunizations Under 20 Months Aged Out No longer eligible based on patient's age to complete this topic
--- OUTSIDE RECORDS SUMMARY | 2024-12-28 06:35 | XMS_ITS | Patient Health Record ---
Author Organization [facility] Address [address] [facility] [address] [place] [address] Care Team Providers Care Heavy Threader Name Role Phone Samir Marcos Unavailable [phone] Reason For Referral No Information Medications Medication SIG (Take, Route, Frequency, Duration) Notes Start Date End Date Status methylPREDNISolone 4 MG Tablet Therapy Pack Oral Active traZODone HCl 50 MG Tablet Oral Active Qvar RediHaler 80 MCG/ACT Aerosol Breath Activated Inhalation Act gabby busPIRone HCl 5 MG Tablet Oral Active Azithromycin 250 MG Tablet Oral Active ARIPiprazole 5 MG Tablet Oral Active Lansoprazole 30 MG Capsule Delayed Release Oral Acti ve Nitrofurantoin Monohyd Macro 100 MG Capsule Oral Active Metoclopramide HCl 5 MG Tablet Oral Active ALPRAZolam 0.5 MG Tablet Oral Active Losartan Potassium 50 MG Tablet Oral Active Escitalopram Oxalate 20 MG Tablet Oral Active Losartan Potassium 25 MG Tablet Oral Active Trimethoprim 100 MG Tablet Oral Active Citalopram Hydrobromide 40 MG Tablet Oral Active Fluticasone Propionate Diskus 50 MCG/ACT Aerosol Powder Breath Activated Inhalation *Reorder from [employer] for eRx and Interaction Alerts* Active clonazePAM 0.5 MG Tablet Oral Active Restasis 0.05 % Emulsion Ophthalmic Active Plan Of Treatment No Information
--- OUTSIDE RECORDS SUMMARY | 2024-12-28 06:35 | XMS_ITS | Encounter Summary ---
Author Organization [facility] Address [address] [place] [address] Care Team Providers Care Financial Reporting Accountant Name Role Phone Unavailable Primary Care Provider [...] on file Legal Sex Female 4:46 AM LAVATORY ATTENDANT Gender Identity Not on file Sexual Orientation Not on file documented as of this encounter Plan of Treatment Not on file documented as of this encounter Visit Diagnoses Not on filedocumented in this encounter
--- OUTSIDE RECORDS SUMMARY | 2024-12-28 06:35 | XMS_ITS | Encounter Summary ---
Author Organization [facility] Address [address] [place] [address] Care Team Providers Care Radiation Engineer Name Role Phone Unavailable Primary Care [...] on file Legal Sex Female 4:46 AM BRANCH SPECIALIST Gender Identity Not on file Sexual Orientation Not on file documented as of this encounter Plan of Treatment Not on file documented as of this encounter Visit Diagnoses Not on filedocumented in this encounter
--- OUTSIDE RECORDS SUMMARY | 2024-12-28 06:35 | XMS_ITS | Encounter Summary ---
Author Organization [facility] Address [address] [place] [address] Care Team Providers Care Liquid Flavor Compounder Name Role Phone Unavailable Primary Care Provider [...] on file Legal Sex Female 4:46 AM ADULT SCHOOL COUNSELOR Gender Identity Not on file Sexual Orientation Not on file documented as of this encounter Plan of Treatment Not on file documented as of this encounter Visit Diagnoses Not on filedocumented in this encounter
--- OUTSIDE RECORDS SUMMARY | 2024-12-28 06:35 | XMS_ITS | Patient Health Record ---
Author Organization [facility] Address [address] [place] [address] Support Name Relationship Address Phone SHAINA FLOREZ Emergency Contact Unknown [phone] VIVIANE CADENA Guarantor Unknown Reason For Referral No Information Medications Medication SIG (Take, Route, Frequency, Duration) Notes Start Date End Date Status buPROPion HCl ER (SR) 100 MG Tablet Extended Release 12 Hour Oral 12/11/2021 Active clonazePAM 0.5 MG Tablet Oral 12/11/2021 Active ARIPiprazole 5 MG Tablet Oral 12/11/2021 Active ProAir HFA 108 (90 Base) MCG/ACT Aerosol Solution Inhalation 12/11/2021 Act gabby Citalopram Hydrobromide 40 MG Tablet Oral 12/11/2021 Active Citalopram Hydrobromide 20 MG Tablet Oral 12/11/2021 Active Furosemide *Pick strength-form from Moments[employer]me for eRX* 12/11/2021 Active Restasis 0.05 % Emulsion Ophthalmic 12/11/2021 Active methylPREDNISolone 4 MG Tablet Therapy Pack Oral 12/11/2021 Active Losartan Potassium 50 MG Tablet Oral 12/11/2021 Active Escitalopram Oxalate 20 MG Tablet Oral 12/11/2021 Active Qvar RediHaler 80 MCG/ACT Aerosol Breath Activated Inhalation 12/11/2021 Act gabby traZODone HCl 50 MG Tablet Oral 12/11/2021 Active Losartan Potassium 25 MG Tablet Oral 12/11/2021 Active Fluticasone Propionate Diskus 50 MCG/ACT Aerosol Powder Breath Activated Inhalation *Reorder from Moments[employer]me for eRx and Interaction Alerts* 12/11/2021 Active Trimethoprim 100 MG Tablet Oral 12/11/2021 Active Lansoprazole 30 MG Capsule Delayed Release Oral 12/11/2021 Acti ve Immunizations Vaccine Route Administration Date Status Comme nts Pfizer Biontech Covid-19 Vac cine 2nd dose Unknown 04/03/2020 Administered Pfizer Biontech Covid-19 Vac cine 2nd dose Unknown 04/24/2020 Administered Pfizer Biontech Covid-19 Vac cine 2nd dose Unknown 12/01/2020 Administered Pfizer Biontech Covid-19 Vac cine 2nd dose Unknown 09/29/2021 Administered Social History Social History Additional Details Category Social Info Options Details Migrated Social History Migrated Social History Alcohol Intake: None 12/11/2021,Tobacco Years: Former smoker 07/16/2020 Plan Of Treatment No Information Insurance Providers Payer Name Payer Address Payer Phone Subscriber Number Group Number Insured Name Patient Relationship to Insured Coverage Start Date Coverage End Date Medicare-I l Medicare [address] [place] [address] [id number] VIVIANE CADENA Self - patient is the insured Bc-Dc Ppo [address] [place] [address] [id number] VIVIANE CADENA Self - patient is the insured Medical (General) History Surgical History Surgery Date(Month/Year) Removal of gallbladder (09632)
--- OUTSIDE RECORDS SUMMARY | 2024-12-28 06:35 | XMS_ITS | Clinical Summary ---
Author Organization [facility] [place] Address [address] [place] [address] Care Team Providers Care Lanolin Plant Operator Name Role Phone Evangelista Carlson MD Primary Care Provide r Berny Vazquez MD Unavailable [phone] Allergies Active Allergy Reactions Criticality Noted Date [...] parkinsonism. Assessment & Plan (03/31/2022 11:14 AM DIE MAINTENANCE): She had stage 3 parkinsonism characterized by [...] depression. Assessment & Plan (01/14/2021 12:22 PM DIE MAINTENANCE): She had stage 3 parkinsonism characterized by [...] reevaluate her in 6 months with our Software Project Lead and repeat a video at that time. [...] on file Legal Sex Female 1:49 AM DIE MAINTENANCE Gender Identity Female 07/15/2021 8:28 PM CDT [...] Last Done Comments Fall Risk Assessment 1938 Osteoporosis Screening-Bone Density Scan 1938 Hepatitis B Screening 01/24/1956 Zoster Vaccine (1 of 2) 01/24/1988 Well Visit 65+ 2003 Pneumococcal vaccine 65+ (2 of 2 - PPSV23, PCV20, or PCV21) 03/10/2017 01/13/2017 Depression Screening 03/31/2023 03/31/2022 Covid-19 Vaccine (3 - 2024-2 6 season) 2024 04/24/2020, 04/03/2020 Influenza Vaccine (#1) 2024 , 12/06/2018, 12/23/2017, Additional history exists DTaP/Tdap/Td Vaccine (2 - Td or Tdap) 01/06/2027 01/06/[address] [facility] MEDICARE [facility] Care Teams Lanolin Plant Operator Relationship Specialty Start Date End Date Evangelista Carlson MD [address] [address] PCP - General Emergency Medicine 07/26/20 Berny Vazquez MD [facility] EXECUTIVE [place] [address] Referring Physician Allergy and Immunology 01/11/21
--- OUTSIDE RECORDS SUMMARY | 2024-12-28 06:35 | XMS_ITS | Encounter Summary ---
Author Organization [facility] Address [address] [place] [address] Care Team Providers Care Ear Specialist Name Role Phone Unavailable Primary Care Provider [...] on file Legal Sex Female 4:46 AM SHAFT SINKER Gender Identity Not on file Sexual Orientation Not on file documented as of this encounter Plan of Treatment Not on file documented as of this encounter Visit Diagnoses Not on filedocumented in this encounter
[2024-12-28 06:58] LABS: Hematocrit 39.0 % (37.0-47.0); Hemoglobin 12.5 g/dL (12.0-15.0); Immature Granulocyte Percent A 0.4 % (0-0.5); Lymphocytes Absolute Auto 2.14 K/mm3 (0.9-3.2); Mean Corpuscular HGB Conc 32.1 g/dl (32-36); Mean Corpuscular Hemoglobin 31.3 pg (26-34); Mean Corpuscular Volume 97.7 fl (80-100); Nucleated Red Blood Cells Absolute Auto 0.000 K/mm3 (0.0-0.012); Nucleated Red Blood Cells Perc 0.0 % (0.0-0.2); Platelet Count Result 200 k/mm3 (150-375); Red Blood Count 3.99 M/mm3 (4.2-5.4); White Blood Count 5.6 K/mm3 (4.5-10.0)
--- NOTE | 2024-12-28 07:15 | ED.GENADULT ---
HPI - General Adult General Chief complaint: GI Bleed Stated complaint: blood in stool Time Seen by Provider: 12/28/24 06:55 History of Present Illness HPI narrative: This is an 84-year-old female history of diverticulosis presenting lower GI bleed. A 4-5 days ago she noticed that she had blood the toilet paper when she wiped. She is then noticed some blood mixed in her stool and bowel movement since then. She has also had bowel movements with which she describes as ?gel ?which I am interpreting as increased mucus. She does not have any abdominal pain. No signs of anemia such as weakness fatigue shortness breath chest pain. She feels well overall. She is not on blood thinners or anticoagulation. She follows with Dr. Lewis LANDA. Related Data Home Medications ?Medication ?Instructions ?Recorded ?Confirmed ?Last Taken ?Type vit C 226 mg-vit E 90 mg-copper 1 cap PO BID 04/07/23 12/10/24 3 Days Ago History 0.8 mg-zinc oxide-lutein 5 mg ~07/12/23 capsule (PreserVision Lutein) xdstlspz-kaxm-ecmo 8 mg-folic 400 1 tablet PO DAILY 07/10/23 12/10/24 3 Days Ago History mcg-K 50 mcg-lutein 300 mcg tablet ~07/12/23 (Centrum Silver Women) bupropion HCl 150 mg tablet,12 hr 150 mg PO DAILY 06/18/24 12/10/24 Unknown History sustained-release cholecalciferol (vitamin D3) 250 250 mcg PO DAILY 09/07/24 12/10/24 Unknown History mcg (10,000 unit) capsule Allergies Allergy/AdvReac Type Severity Reaction Status Date / Time propoxyphene (From Darvon) Allergy Severe Swelling Verified 12/10/24 16:28 of Lip/Tongue/Throat donepezil (From Aricept) AdvReac Intermediate Abdominal Verified 12/10/24 16:28 Pain PMFSH Past Medical History Medical History Dermatitis Irritant contact dermatitis Self-catheterizes urinary bladder Left inguinal hernia Encounter for other specified surgical aftercare Incarcerated right inguinal hernia Partial small bowel obstruction Right inguinal hernia Lipoma of colon Hx of adenomatous colonic polyps Restless legs syndrome Acute blood loss anemia Hyponatremia Pneumoperitoneum Spleen laceration Constipation Bloating Belching symptom Diverticulosis Frequent UTI Memory loss Mild persistent asthma without complication Presbycusis, bilateral Pure hypercholesterolemia Unsteady gait Vitamin D deficiency Insomnia Anxiety Hypertension Asthma GERD (gastroesophageal reflux disease) Depression Surgical History Surgical History History of colonoscopy , complicated by splenic & injury per patient H/O inguinal hernia repair Robotic laparoscopic repair incarcerated right inguinal hernia, robotic laparoscopic repair left inguinal hernia, both repairs with mesh on 07/14 History of tubal ligation History of cholecystectomy Family History Family History Father Family history of transient ischemic attacks Patient's father is Cerebrovascular accident, Onset Age: 77 Sibling Family history of chronic obstructive pulmonary disease Family history of lung cancer Patient's brother is Mother Family history of transient ischemic attacks, Onset Age: 91 Other Family history of schizophrenia Social History Social History Social History: Surrogate medical decision maker: Che Field or Steffany Leeann, daughters. Code status: Full code. Caffeine-none Smoking packs per day: 2 Smoking cigarettes per day: 40.0 Years smoked: 4 Smoking pack-years: 8.00 Smoking status: Former smoker Second hand tobacco smoke exposure: No Alcohol intake: former Substance use: never Substance use type: does not use Do You Feel Safe in your Home?: Yes Lack of Transportation: No Lack of Food: Never True Current Housing: I Have Housing Concerned About Future Housing: No Difficulty Paying Gas/Electric Bills: No Difficulty Paying for Meds: No Currently Unemployed: No Education: Master's Degree or Higher Difficulty w/ Childcare or Family Care: No Living arrangements: alone Spiritual care concerns: No Agree to blood products: Yes Exam Narrative: APPEARANCE: No apparent distress. Head: atraumatic. EYES: EOMI, NOSE: Atraumatic NECK: Trachea midline RESPIRATORY: No increased rate of breathing CARDIOVASCULAR: RRR, ABDOMINAL: Non-distended soft nontender no guarding rebound Rectal exam: No external hemorrhoids or fissures, brown stool in the rectal vault MUSCULOSKELETAl: No obvious deformities NEURO: Alert. Moving 4/4 extremities SKIN:: Warm, dry. Normal color PSYCHIATRIC: Normal affect Course Vital Signs Vital signs: Vital Signs Temperature 97.9 F 12/28/24 06:35 Pulse Rate 97 12/28/24 06:35 Respiratory Rate 22 H 12/28/24 06:35 Blood Pressure 124/91 H 12/28/24 06:35 Pulse Oximetry 99 12/28/24 06:35 Oxygen Delivery Room Air 12/28/24 06:35 Temperature 97.9 F 12/28/24 06:35 Pulse Rate 97 12/28/24 06:35 Respiratory Rate 22 H 12/28/24 06:35 Blood Pressure 124/91 H 12/28/24 06:35 Pulse Oximetry 99 12/28/24 06:35 Oxygen Delivery Room Air 12/28/24 06:35 Medical Decision Making MDM Narrative Medical decision making narrative: -Course: 84-year-old female presenting with bright red blood per rectum. Abdominal exam is benign. No blood on digital rectal exam. Vital signs are stable. Hemoglobin is 12.5 which is at the baseline. She is not on blood thinners or anticoagulation. CT abdomen pelvis showed diverticulosis without diverticulitis. Patient's presentation is most consistent with a diverticular bleed. These are typically benign and self-limiting. Patient will be discharged to follow-up with her GI doctor. Given return precautions for continued GI bleeding. -DDX includes but is not limited to: Diverticular bleed, internal hemorrhoids brisk upper GI bleed. Vital Signs Vital Signs: Vital Signs Temperature 97.9 F 12/28/24 06:35 Pulse Rate 97 12/28/24 06:35 Respiratory Rate 22 H 12/28/24 06:35 Blood Pressure 124/91 H 12/28/24 06:35 Pulse Oximetry 99 12/28/24 06:35 Oxygen Delivery Room Air 12/28/24 06:35 Temperature 97.9 F 12/28/24 06:35 Pulse Rate 97 12/28/24 06:35 Respiratory Rate 22 H 12/28/24 06:35 Blood Pressure 124/91 H 12/28/24 06:35 Pulse Oximetry 99 12/28/24 06:35 Oxygen Delivery Room Air 12/28/24 06:35 Lab Data 12/28/24 06:48 12/28/24 06:48 Labs: Lab Results 12/28/24 Range/Units 06:48 WBC 5.6 (4.5-10.0) K/mm3 RBC 3.99 L (4.2-5.4) M/mm3 Hgb 12.5 (12.0-15.0) g/dL Hct 39.0 (37.0-47.0) % MCV 97.7 (80-100) fl MCH 31.3 (26-34) pg MCHC 32.1 (32-36) g/dl RDW 13.9 (11.5-14.5) % Plt Count 200 (150-375) k/mm3 MPV 10.9 H (7.4-10.4) fl Immature Gran % (Auto) 0.4 (0-0.5) % Neut % (Auto) 47.2 (45.5-73.1) % Lymph % (Auto) 38.0 (18.3-44.2) % [place] % (Auto) 11.5 H (2.6-8.5) % Eos % (Auto) 2.0 (0-4.4) % Baso % (Auto) 0.9 (0.2-1.2) % Lymph # (Auto) 2.14 (0.9-3.2) K/mm3 [place] # (Auto) 0.7 H (0.1-0.6) K/mm3 Eos # (Auto) 0.1 (0-0.3) K/mm3 Baso # (Auto) 0.1 (0.0-0.1) K/mm3 Abs Immat Gran (auto) 0.02 (0.00-0.031) K/mm3 Absolute Neuts (auto) 2.7 (1.3-6.7) K/mm3 Absolute Nucleated RBC 0.000 (0.0-0.012) K/mm3 Nucleated RBC % 0.0 (0.0-0.2) % PT Pending INR Pending APTT Pending Sodium Pending Potassium Pending Chloride Pending Carbon Dioxide Pending Anion Gap Pending BUN Pending Creatinine Pending Estim Creat Clear Calc Pending Estimated GFR Pending Glucose Pending Calcium Pending Total Bilirubin Pending AST Pending ALT Pending Alkaline Phosphatase Pending Total Protein Pending Albumin Pending Discharge Plan Discharge Clinical Impression: Painless rectal bleeding, Diverticulosis Patient Disposition: Home Condition: Stable Instructions: Antibiotic Form, Gastrointestinal Bleeding (ED), Diverticulosis (ED) Additional Instructions: You were seen in the emergency department for blood in her stool. This is likely from her diverticulosis. Please follow-up with your GI physician for further management. If you notice that your having large amounts of bloody stools, developed weakness shortness of breath or chest pain please return to ED for re-evaluation. Patient Language: Zambian Prescriptions: No Action cholecalciferol (vitamin D3) 250 mcg (10,000 unit) capsule 250 mcg PO DAILY gabapentin 300 mg capsule 300 mg PO .COMPLEX Qty: 360 2RF Rx Instructions: 300 mg orally in the AM, 2 in the PM, and 1 HS; Centrum Silver Women 8 mg iron-400 mcg-50 mcg Tablet 1 tablet PO DAILY bupropion HCl 150 mg tablet sustained-release 12 hr 150 mg PO DAILY Rx Instructions: TAKE 1 TABLET BY MOUTH EVERY MORNING PreserVision Lutein 226-90-0.8-5 mg Capsule 1 cap PO BID trazodone 50 mg tablet See Rx Instructions .ROUTE .COMPLEX Qty: 90 2RF Dose Instruction: TAKE 1 TABLET BY MOUTH EVERY DAY AT BEDTIME NEEDED FOR SLEEP Rx Instructions: TAKE 1 TABLET BY MOUTH EVERY DAY AT BEDTIME NEEDED FOR SLEEP pantoprazole 40 mg tablet,delayed release (DR/EC) 40 mg PO QAM Qty: 90 2RF memantine 10 mg tablet See Rx Instructions .ROUTE .COMPLEX Qty: 90 2RF Dose Instruction: TAKE 1 TABLET BY MOUTH DAILY Rx Instructions: TAKE 1 TABLET BY MOUTH DAILY nitrofurantoin monohyd/m-cryst [Macrobid] 100 mg capsule 100 mg PO BID 7 Days Qty: 14 0RF Rx Instructions: must administer with a meal/food metoprolol succinate 25 mg tablet extended release 24 hr See Rx Instructions .ROUTE .COMPLEX Qty: 30 5RF Dose Instruction: TAKE 1 TABLET BY MOUTH DAILY Rx Instructions: TAKE 1 TABLET BY MOUTH DAILY furosemide 40 mg tablet See Rx Instructions .ROUTE .COMPLEX Qty: 90 0RF Dose Instruction: TAKE 1 TABLET BY MOUTH EVERY MORNING Rx Instructions: TAKE 1 TABLET BY MOUTH EVERY MORNING potassium chloride 20 mEq tablet,ER particles/crystals See Rx Instructions .ROUTE .COMPLEX Qty: 90 2RF Dose Instruction: TAKE 1 TABLET BY MOUTH DAILY Rx Instructions: TAKE 1 TABLET BY MOUTH DAILY clonazepam 0.5 mg tablet 0.5 mg PO HS Qty: 30 2RF Follow-up/Referrals: Evangelista Carlson MD [Primary Care Provider, Internal Medicine] Gil Lubin MD [Physician, Gastroenterology] - 2 Days Referral Note: Rectal bleeding, suspect diverticular bleed
--- OUTSIDE RECORDS SUMMARY | 2024-12-28 07:29 | XMS_ITS | Encounter Summary ---
Author Organization [facility] Address 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
--- OUTSIDE RECORDS SUMMARY | 2024-12-28 07:29 | XMS_ITS | Encounter Summary ---
Author Organization [facility] Address [address] [place] [address] Care Team Providers Care Home Health Care Physician Name Role Phone Unavailable Primary Care Provider [...] on file Legal Sex Female 4:46 AM DEVELOPMENT TRAINER Gender Identity Not on file Sexual Orientation Not on file documented as of this encounter Plan of Treatment Not on file documented as of this encounter Visit Diagnoses Not on filedocumented in this encounter
--- OUTSIDE RECORDS SUMMARY | 2024-12-28 07:29 | XMS_ITS | Encounter Summary ---
Author Organization [facility] Address 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
--- OUTSIDE RECORDS SUMMARY | 2024-12-28 07:29 | XMS_ITS | Clinical Summary ---
Author Organization [facility] Address [address] [place] [address] Care Team Providers Care Hose Sprayer Name Role Phone Unavailable Primary Care Provider [...]
--- OUTSIDE RECORDS SUMMARY | 2024-12-28 07:29 | XMS_ITS | Clinical Summary ---
Author Organization [facility] Address [address] Attn: Epic Prelude ADT [place] [address] Care Team Providers Care Laundry Manager Name Role Phone Unavailable Primary Care Provider Unavailabl e Social History Tobacco Use Types Packs/Day Years Used Date Smoking Tobacco: Never Assessed Comments Unknown Sex and Gender Information Value Date Recorded Sex Assigned at Not on file Legal Sex Female 4:46 AM MEDICATION AIDE Gender Identity Not on file Sexual Orientation [...]
--- OUTSIDE RECORDS SUMMARY | 2024-12-28 07:30 | XMS_ITS | Clinical Summary ---
Author Organization [facility] [place] Address [address] [place] [address] Care Team Providers Care Brand Lead Name Role Phone Evangelista Carlson MD Primary Care Provide r Berny Vazquez MD Unavailable [phone] Allergies Active Allergy Reactions Criticality Noted Date [...] parkinsonism. Assessment & Plan (03/31/2022 11:14 AM COOK PIE): She had stage 3 parkinsonism characterized by [...] depression. Assessment & Plan (01/14/2021 12:22 PM COOK PIE): She had stage 3 parkinsonism characterized by [...] reevaluate her in 6 months with our Brick Sorter and repeat a video at that time. [...] on file Legal Sex Female 1:49 AM COOK PIE Gender Identity Female 07/15/2021 8:28 PM CDT [...] or Tdap) 01/06/2027 01/06/2017 Insurance MEDICARE MEDICARE [facility] MEDICARE [facility] Care Teams Brand Lead Relationship Specialty Start Date End Date Evangelista Carlson MD [address] [address] PCP - General Emergency Medicine 07/26/20 Berny Vazquez MD [facility] EXECUTIVE [place] [address] Referring Physician Allergy and Immunology 01/11/21
--- OUTSIDE RECORDS SUMMARY | 2024-12-28 07:30 | XMS_ITS | Encounter Summary ---
Author Organization [facility] Address 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
[2024-12-28 07:33] LABS: Alanine Aminotransferase 29 U/L (6-35); Albumin Level 3.7 g/dL (3.5-5.1); Alkaline Phosphatase 112 U/L (38-126); Anion Gap 9 mmol/L (4-12); Aspartate Amino Transferase 38 U/L (14-36); Bilirubin,Total 0.7 mg/dL (0.2-1.3); Blood Urea Nitrogen 19 mg/dL (7-17); Calcium 8.6 mg/dL (8.4-10.2); Carbon Dioxide 29 mmol/L (22-30); Chloride 101 mmol/L (98-107); Estimated CRCL calculation 30 ml/min; Estimated Glomerular Filt Rate 48; Glucose 85 mg/dL (65-110); Potassium 3.6 mmol/L (3.4-5.0); Sodium 139 mmol/L (137-145); Total Protein 6.2 g/dL (6.3-8.2)
[2024-12-28 07:44] LABS: INR 1.0; Prothrombin Time 13.6 Seconds (11.1-14.7)
[2024-12-28 07:45] LABS: Partial Thromboplastin Time 35.5 Seconds (22.3-36.8)
[2024-12-28 09:54] VITALS: BP 105/81; PULSE 83; RESP 15; O2SAT 97
== END 2024-12-28 09:56 | disposition home or self-care (01) ==
PROVIDERS: Student in an Organized Health Care Education/Training Program; Emergency Provider Emergency Medicine; PCP Emergency Medicine
DX: K62.5 Hemorrhage of anus and rectum (principal); K57.90 Diverticulosis of intestine, part unspecified, without perforation or abscess without bleeding; E55.9 Vitamin D deficiency, unspecified; K21.9 Gastro-esophageal reflux disease without esophagitis; I10 Essential (primary) hypertension; J45.909 Unspecified asthma, uncomplicated; F41.9 Anxiety disorder, unspecified; E78.00 Pure hypercholesterolemia, unspecified; Z87.891 Personal history of nicotine dependence
CPT/HCPCS: 36415; 74177; 80053; 85025; 85610; 85730; 86850; 86900; 86901; 99284; Q9967

== ENCOUNTER 2025-01-03 06:57 | Outpatient (CLI) | payer MEDICARE, SELFPAY ==
--- OUTSIDE RECORDS SUMMARY | 2025-01-03 06:59 | XMS_ITS | Patient Health Record ---
Author Organization [facility] Address [address] [facility] [address] [place] [address] Care Team Providers Care Vacuum Forming Machine Operator Name Role Phone Samir Marcos Unavailable [phone] Reason For Referral No Information Medications Medication [...] Aerosol Powder Breath Activated Inhalation *Reorder from [employer] for eRx and Interaction Alerts* Active clonazePAM 0.5 MG Tablet Oral Active Restasis 0.05 % Emulsion Ophthalmic Active Plan Of Treatment No Information
--- OUTSIDE RECORDS SUMMARY | 2025-01-03 06:59 | XMS_ITS | Encounter Summary ---
Author Organization [facility] Address [address] [place] [address] Care Team Providers Care Naturalist Name Role Phone Unavailable Primary Care Provider [...] on file Legal Sex Female 4:46 AM DRIVABILITY TECHNICIAN Gender Identity Not on file Sexual Orientation Not on file documented as of this encounter Plan of Treatment Not on file documented as of this encounter Visit Diagnoses Not on filedocumented in this encounter
--- OUTSIDE RECORDS SUMMARY | 2025-01-03 06:59 | XMS_ITS | Patient Health Record ---
Author Organization [facility] [employer] Address [address] [place] [address] Support Name Relationship Address Phone SHAINA FLOREZ Emergency Contact Unknown [phone] VIVIANE CADENA Guarantor Unknown Reason For Referral [...] Oral 12/11/2021 Active Furosemide *Pick strength-form from [employer] for eRX* 12/11/2021 Active Restasis 0.05 % [...] Aerosol Powder Breath Activated Inhalation *Reorder from [employer] for eRx and Interaction Alerts* 12/11/2021 Active [...] Date Medicare-I l Medicare [address] [place] [address] [id number] VIVIANE CADENA Self - patient is the insured Bc-[employer] Ppo [address] [place] [address] [id number] VIVIANE CADENA Self - patient is the insured Medical (General) History Surgical History Surgery Date(Month/Year) Removal of gallbladder (85711)
--- OUTSIDE RECORDS SUMMARY | 2025-01-03 06:59 | XMS_ITS | Clinical Summary ---
Author Organization [facility] Address [address] [facility] Attn: Epic Prelude ADT [place] [address] Care Team Providers Care Tube Buffer Name Role Phone Unavailable Primary Care Provider Unavailabl e Social History Tobacco Use Types Packs/Day Years Used Date Smoking Tobacco: Never Assessed Comments Unknown Sex and Gender Information Value Date Recorded Sex Assigned at Not on file Legal Sex Female 4:46 AM TYPIST Gender Identity Not on file Sexual Orientation [...]
--- OUTSIDE RECORDS SUMMARY | 2025-01-03 06:59 | XMS_ITS | Encounter Summary ---
Author Organization [facility] Address 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
--- OUTSIDE RECORDS SUMMARY | 2025-01-03 06:59 | XMS_ITS | Encounter Summary ---
Author Organization [facility] Address [address] [place] [address] Care Team Providers Care Corporate Relations Manager Name Role Phone Unavailable Primary Care [...] on file Legal Sex Female 4:46 AM HAND OUTSIDE CUTTER Gender Identity Not on file Sexual Orientation Not on file documented as of this encounter Plan of Treatment Not on file documented as of this encounter Visit Diagnoses Not on filedocumented in this encounter
--- OUTSIDE RECORDS SUMMARY | 2025-01-03 07:00 | XMS_ITS | Clinical Summary ---
Author Organization [facility] Address [address] [place] [address] Care Team Providers Care Glue Clamp Operator Name Role Phone Unavailable Primary Care [...] 75+ series) 2013 COVID-19 Vaccine ( - 2024-2 6 season) 2024 Influenza Adult (#1) 2024 Hepatitis [...]
--- OUTSIDE RECORDS SUMMARY | 2025-01-03 07:00 | XMS_ITS | Encounter Summary ---
Author Organization [facility] Address [address] [place] [address] Care Team Providers Care System Support Specialist Name Role Phone Unavailable Primary Care [...] on file Legal Sex Female 4:46 AM HOUSE PARENT Gender Identity Not on file Sexual Orientation Not on file documented as of this encounter Plan of Treatment Not on file documented as of this encounter Visit Diagnoses Not on filedocumented in this encounter
--- OUTSIDE RECORDS SUMMARY | 2025-01-03 07:00 | XMS_ITS | Clinical Summary ---
Author Organization [facility] [place] Address [address] [place] [address] Care Team Providers Care Landscape Architecture Professor Name Role Phone Evangelista Carlson MD [...] parkinsonism. Assessment & Plan (03/31/2022 11:14 AM MEAT MOLDER): She had stage 3 parkinsonism characterized by [...] depression. Assessment & Plan (01/14/2021 12:22 PM MEAT MOLDER): She had stage 3 parkinsonism characterized by [...] reevaluate her in 6 months with our Intervention Specialist and repeat a video at that [...] on file Legal Sex Female 1:49 AM MEAT MOLDER Gender Identity Female 07/15/2021 8:28 PM CDT [...] Tdap) 01/06/2027 01/06/2017 Insurance MEDICARE MEDICARE [facility] MEDICARE [facility] Care Teams Landscape Architecture Professor Relationship Specialty Start Date End Date Evangelista Carlson MD [address] [address] PCP - General Emergency Medicine 07/26/20 Berny Vazquez MD COUNTRY [facility] EXECUTIVE [place] [address] Referring Physician Allergy and Immunology 01/11/21
[2025-01-03 07:59] LABS: Alanine Aminotransferase 19 U/L (6-35); Albumin Level 3.9 g/dL (3.5-5.1); Alkaline Phosphatase 108 U/L (38-126); Anion Gap 6 mmol/L (4-12); Aspartate Amino Transferase 29 U/L (14-36); Bilirubin,Total 0.8 mg/dL (0.2-1.3); Blood Urea Nitrogen 23 mg/dL (7-17); Calcium 8.8 mg/dL (8.4-10.2); Carbon Dioxide 31 mmol/L (22-30); Chloride 101 mmol/L (98-107); Estimated Glomerular Filt Rate 41; Glucose 82 mg/dL (65-110); Potassium 4.0 mmol/L (3.4-5.0); Sodium 138 mmol/L (137-145); Total Protein 6.5 g/dL (6.3-8.2)
== END 2025-01-03 06:58 | disposition home or self-care (01) ==
PROVIDERS: PCP Emergency Medicine; Visit Provider Emergency Medicine
DX: E55.9 Vitamin D deficiency, unspecified (principal); E78.5 Hyperlipidemia, unspecified
CPT/HCPCS: 36415; 80053; 82306

== ENCOUNTER 2025-02-22 09:35 | Emergency (ER) | payer MEDICARE, SELFPAY ==
[2025-02-22] VITALS (17 sets, daily range): BP systolic 103–137; BP diastolic 48–78; PULSE 79–99; RESP 16–26; TEMP 36.6–36.7; O2SAT 94–99
--- NOTE | ~2025-02-22 | XR_ITS ---
EXAMINATION: XR chest 1V portable DATE: 02/22/2025 10:25 INDICATION: Lightheadedness TECHNIQUE: A single frontal view of the chest was obtained. COMPARISON: July 15, 2024 FINDINGS: The lungs are significantly improved inflation and aeration with no gross consolidative process, alix pulmonary edema or large effusion. Heart size normal. No pneumothorax or subphrenic free air seen. IMPRESSION: 1. No focal consolidation effusion or alix pulmonary edema. Reviewed, dictated and finalized at location A. [facility]
--- NOTE | ~2025-02-22 | CT_ITS ---
EXAMINATION: CT brain wo con DATE: 02/22/2025 10:24 INDICATION: Dizziness TECHNIQUE: Computed tomography (CT) of the head was performed May 29, 2024 intravenous contrast. The dose-length product was 605.33 mGy-cm. COMPARISON: None FINDINGS: No gross intracranial mass effect or hemorrhage. Old right basal ganglia lacunar infarction and chronic microvascular ischemic appearing white matter changes. No large acute ischemic event. Calvarial structures appear intact. IMPRESSION: 1. No gross acute intracranial mass effect or hemorrhage. Reviewed, dictated and finalized at location A. [facility]
--- NOTE | 2025-02-22 09:46 | ED.GENADULT ---
HPI - General Adult General Chief complaint: Dizziness Stated complaint: Dizzy and light headed Time Seen by Provider: 02/22/25 09:45 Source: patient Mode of arrival: ambulatory Limitations: no limitations History of Present Illness HPI narrative: 85 years old white female came to the ED by private car from home complaining of lightheadedness and weakness started yesterday. Patient report symptom worse with standing, maybe a little bit better laying down still. She denies any fever, chills, nausea, vomiting, chest pain, shortness of breath, back pain, headache. Related Data Home Medications ?Medication ?Instructions ?Recorded ?Confirmed ?Last Taken ?Type vit C 226 mg-vit E 90 mg-copper 1 cap PO BID 04/07/23 01/12/25 3 Days Ago History 0.8 mg-zinc oxide-lutein 5 mg ~07/12/23 capsule (PreserVision Lutein) [id number] 8 mg-folic 400 1 tablet PO DAILY 07/10/23 01/12/25 3 Days Ago History mcg-K 50 mcg-lutein 300 mcg tablet ~07/12/23 (Centrum Silver Women) cholecalciferol (vitamin D3) 250 250 mcg PO DAILY 09/07/24 01/12/25 Unknown History mcg (10,000 unit) capsule Allergies Allergy/AdvReac Type Severity Reaction Status Date / Time propoxyphene (From Darvon) Allergy Severe Swelling Verified 02/22/25 09:52 of Lip/Tongue/Throat donepezil (From Aricept) AdvReac Intermediate Abdominal Verified 02/22/25 09:52 Pain Review of Systems Review of Systems: All systems reviewed & are unremarkable except as noted in HPI and below PMFSH Past Medical History Medical History Acute UTI Acute dyspnea Acute UTI Pneumonia Dermatitis Irritant contact dermatitis Self-catheterizes urinary bladder Left inguinal hernia Encounter for other specified surgical aftercare Incarcerated right inguinal hernia Partial small bowel obstruction Right inguinal hernia Lipoma of colon Hx of adenomatous colonic polyps Restless legs syndrome Acute blood loss anemia Hyponatremia Pneumoperitoneum Spleen laceration Constipation Bloating Belching symptom Diverticulosis Frequent UTI Memory loss Mild persistent asthma without complication Presbycusis, bilateral Pure hypercholesterolemia Unsteady gait Vitamin D deficiency Insomnia Anxiety Hypertension Asthma GERD (gastroesophageal reflux disease) Depression Surgical History Surgical History History of colonoscopy , complicated by splenic & injury per patient H/O inguinal hernia repair Robotic laparoscopic repair incarcerated right inguinal hernia, robotic laparoscopic repair left inguinal hernia, both repairs with mesh on 07/14 History of tubal ligation History of cholecystectomy Family History Family History Father Family history of transient ischemic attacks Patient's father is Cerebrovascular accident, Onset Age: 77 Sibling Family history of chronic obstructive pulmonary disease Family history of lung cancer Patient's brother is Mother Family history of transient ischemic attacks, Onset Age: 91 Other Family history of schizophrenia Social History Social History Social History: Surrogate medical decision maker: Che Field or Steffany Leeann, daughters. Code status: Full code. Caffeine-none Smoking packs per day: 2 Smoking cigarettes per day: 40.0 Years smoked: 4 Smoking pack-years: 8.00 Smoking status: Former smoker Second hand tobacco smoke exposure: No Alcohol intake: former Substance use: never Substance use type: does not use Lack of Transportation: No Lack of Food: Never True Current Housing: I Have Housing Concerned About Future Housing: No Difficulty Paying Gas/Electric Bills: No Difficulty Paying for Meds: No Currently Unemployed: No Education: Master's Degree or Higher Difficulty w/ Childcare or Family Care: No Living arrangements: alone Spiritual care concerns: No Agree to blood products: Yes Exam Narrative: General appearance: Well-developed, well-nourished Skin: Normal color Head: Normocephalic, nontraumatic Eyes: Clear conjunctiva ENT: Oropharynx normal, ears normal, nose normal Neck: Supple, nontender Chest and respiratory: Airway patent, no respiratory distress, no accessory muscle use Heart: Regular rate/rhythm Abdomen: Soft, nontender, no organomegaly, quiet bowel sounds Vascular: Normal peripheral pulses, normal capillary refill. 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 PLAYER is normal as tested, no gross motor deficit Course Vital Signs Vital signs: Vital Signs Temperature 36.6 C 02/22/25 09:35 Pulse Rate 92 02/22/25 09:35 Respiratory Rate 19 02/22/25 09:35 Blood Pressure 137/78 02/22/25 09:35 Pulse Oximetry 97 02/22/25 09:35 Oxygen Delivery Room Air 02/22/25 09:35 Temperature 36.7 C 02/22/25 11:01 Pulse Rate 80 02/22/25 11:10 Respiratory Rate 24 H 02/22/25 11:01 Blood Pressure 120/63 02/22/25 11:01 Pulse Oximetry 97 02/22/25 11:01 Oxygen Delivery Room Air 02/22/25 09:35 MDM MDM Narrative Medical decision making narrative: Patient came with lightheadedness and weakness Vital signs are stable Physical examination: Insignificant abnormalities Differential diagnosis orthostatic hypertension, anxiety like symptoms, intracranial abnormality, electrolyte imbalance, dehydration, urinary tract infection, pneumonia Blood workup today includes CBC, CMP, troponin, TSH showed creatinine 1.3, AST 73, ALT 96 otherwise within normal limit urinalysis positive for infection Urinalysis positive for infection, patient currently on nitrofurantoin. My plan to stop nitrofurantoin and start Cipro 500 b.i.d.. Patient received 1 g of Rocephin IM in the ED prior to discharge. Chest x-ray showed no acute abnormality CT head without contrast showed no acute abnormality Patient declined hospitalization and would like to try Cipro at home. The pt was discharged to home.the pt,s condition upon discharge was fair,education was provided to the pt in reference to the final impression,discharge study results,treatment,prognosis and need for follow up . Differential Diagnosis Differential Diagnosis: As above Lab Data 02/22/25 10:03 02/22/25 10:03 Labs: Lab Results 02/22/25 02/22/25 Range/Units 10:03 10:37 WBC 8.1 (4.8-10.8) K/mm3 RBC 4.24 (4.20-5.40) M/mm3 Hgb 13.5 (11.7-13.8) g/dL Hct 41.1 (35.0-42.0) % MCV 96.9 (78.0-102.0) fL MCH 31.8 H (27.0-31.0) pg MCHC 32.8 (32-36) g/dL RDW 13.1 (11.6-14.4) % Plt Count 181 (150-420) K/mm3 MPV 10.2 (9.2-11.8) fl Immature Gran % (Auto) 0.6 H (0.0-0.0) % Neut % (Auto) 71.3 H (50.0-70.0) % Lymph % (Auto) 16.0 L (18.0-42.0) % [place] % (Auto) 10.7 (2.0-11.0) % Eos % (Auto) 0.7 L (1.0-6.0) % Baso % (Auto) 0.7 (0.0-1.0) % Lymph # (Auto) 1.30 (1.10-4.50) K/mm3 [place] # (Auto) 0.87 (0.10-0.90) K/mm3 Eos # (Auto) 0.06 (0.02-0.50) K/mm3 Baso # (Auto) 0.06 (0.00-0.10) K/mm3 Abs Immat Gran (auto) 0.05 H (0.00-0.00) K/mm3 Absolute Neuts (auto) 5.79 (1.70-7.20) K/mm3 Absolute Nucleated RBC 0.00 (0.00-0.00) K/mm3 Nucleated RBC % 0.0 (0-0.0) % PT 10.9 (9.50-12.1) Seconds INR 1.0 Sodium 140 (137-145) mmol/L Potassium 4.1 (3.4-5.0) mmol/L Chloride 104 (98-107) mmol/L Carbon Dioxide 26 (22-30) mmol/L Anion Gap 10 (4-12) mmol/L BUN 28 H (7-17) mg/dL Creatinine 1.32 H (0.7-1.0) mg/dL Estim Creat Clear Calc 23 ml/min Estimated GFR 38 L (59 - ) Glucose 86 (65-110) mg/dL Calculated Osmolality 294 (285-295) mOsm/kg Calcium 9.1 (8.4-10.2) mg/dL Total Bilirubin 0.8 (0.2-1.3) mg/dL AST 73 H (14-36) U/L ALT 96 H (6-35) U/L Alkaline Phosphatase 109 (38-126) U/L Troponin I < 0.012 (0.000-0.034) ng/mL Total Protein 6.2 L (6.3-8.2) g/dL Albumin 3.9 (3.5-5.1) g/dL TSH 2.910 (0.465-4.680) uIU/mL Urine Color Yellow (Yellow) Urine Appearance Clear (Clear) Urine pH 7.0 (5.0-8.0) Ur Specific Mobile 1.010 (1.010-1.020) Urine Protein Negative (Negative) Urine Glucose (UA) Negative (Negative) Urine Ketones Trace H (Negative) Ur Blood (Man) Negative (Negative) Urine Nitrate Positive H (Negative) Urine Bilirubin Negative (Negative) Urine Urobilinogen 0.2 (0.2-1.0) mg/dL Leukocyte Esterase Rfl 3+ H (Negative) RYLEE/UL Urine RBC 0-2 (0-2) /hpf Urine WBC >75 H (0-3) /hpf Ur Squamous Epith Cells Rare (Few) /hpf Urine Bacteria 2+ H (None) /hpf Imaging Data Radiologist's impression: ITS Impressions Head CT 02/22/25 10:30 IMPRESSION: 1. No gross acute intracranial mass effect or hemorrhage. Chest X-Ray 02/22/25 10:35 IMPRESSION: 1. No focal consolidation effusion or alix pulmonary edema. Discharge Plan Discharge Clinical Impression: Urinary tract infection, Weakness, Light-headedness, Orthostatic hypotension Patient Disposition: Home Condition: Stable Instructions: Antibiotic Form, Urinary Tract Infection in Women (DC), Hypotension (ED), Weakness (ED), Lightheadedness (ED) Additional Instructions: Return if symptoms are worsening , call your family physician for appointment, take Tylenol as as needed for aches and pain, continue home medications. Stop nitrofurantoin Encourage fluid intake Patient Language: Icelandic Prescriptions: New ciprofloxacin HCl [Cipro] 500 mg tablet 500 mg PO Q12H Qty: 20 0RF No Action cholecalciferol (vitamin D3) 250 mcg (10,000 unit) capsule 250 mcg PO DAILY gabapentin 300 mg capsule 300 mg PO .COMPLEX Qty: 360 2RF Rx Instructions: 300 mg orally in the AM, 2 in the PM, and 1 HS; Centrum Silver Women 8 mg iron-400 mcg-50 mcg Tablet 1 tablet PO DAILY PreserVision Lutein 226-90-0.8-5 mg Capsule 1 cap PO BID pantoprazole 40 mg tablet,delayed release (DR/EC) 40 mg PO QAM Qty: 90 2RF memantine 10 mg tablet See Rx Instructions .ROUTE .COMPLEX Qty: 90 2RF Dose Instruction: TAKE 1 TABLET BY MOUTH DAILY Rx Instructions: TAKE 1 TABLET BY MOUTH DAILY nitrofurantoin monohyd/m-cryst [Macrobid] 100 mg capsule 100 mg PO BID 7 Days Qty: 14 0RF Rx Instructions: must administer with a meal/food potassium chloride 20 mEq tablet,ER particles/crystals See Rx Instructions .ROUTE .COMPLEX Qty: 90 2RF Dose Instruction: TAKE 1 TABLET BY MOUTH DAILY Rx Instructions: TAKE 1 TABLET BY MOUTH DAILY clonazepam 0.5 mg tablet 0.5 mg PO HS Qty: 30 2RF metoprolol succinate 25 mg tablet extended release 24 hr See Rx Instructions .ROUTE .COMPLEX Qty: 90 2RF Dose Instruction: TAKE 1 TABLET BY MOUTH DAILY Rx Instructions: TAKE 1 TABLET BY MOUTH DAILY furosemide 40 mg tablet See Rx Instructions .ROUTE .COMPLEX Qty: 90 2RF Dose Instruction: TAKE 1 TABLET BY MOUTH EVERY MORNING Rx Instructions: TAKE 1 TABLET BY MOUTH EVERY MORNING trazodone 50 mg tablet See Rx Instructions .ROUTE .COMPLEX Qty: 90 2RF Dose Instruction: TAKE 1 TABLET BY MOUTH EVERY DAY AT BEDTIME NEEDED FOR SLEEP Rx Instructions: TAKE 1 TABLET BY MOUTH EVERY DAY AT BEDTIME NEEDED FOR SLEEP bupropion HCl 150 mg tablet sustained-release 12 hr See Rx Instructions .ROUTE .COMPLEX Qty: 90 2RF Dose Instruction: TAKE 1 TABLET BY MOUTH EVERY MORNING Rx Instructions: TAKE 1 TABLET BY MOUTH EVERY MORNING Follow-up/Referrals: Evangelista Carlson MD [Primary Care Provider, Internal Medicine]
--- NOTE | 2025-02-22 09:53 | ECG_ITS ---
Test Date: 2025-02-22 10:05:28 Measurements Intervals [place] Rate: 84 P: 60 AR: 182 QRS: -80 QRSD: 146 T: 52 QT: 406 QTc: 482 Interpretive Statements SINUS RHYTHM RIGHT BUNDLE BRANCH BLOCK LEFT ANTERIOR FASCICULAR BLOCK ABNORMAL ECG Compared to ECG 07/15/2024 12:02:29 NO SIGNIFICANT CHANGE Electronically Signed On 02-22-2025 10:21:32 CUTTER HAND by Armond Castaneda D.O.
[2025-02-22 10:08] LABS: Hematocrit 41.1 % (35.0-42.0); Hemoglobin 13.5 g/dL (11.7-13.8); Immature Granulocyte Percent A 0.6 % (0.0-0.0); Lymphocytes Absolute Auto 1.30 K/mm3 (1.10-4.50); Mean Corpuscular HGB Conc 32.8 g/dL (32-36); Mean Corpuscular Hemoglobin 31.8 pg (27.0-31.0); Mean Corpuscular Volume 96.9 fL (78.0-102.0); Nucleated Red Blood Cells Absolute Auto 0.00 K/mm3 (0.00-0.00); Nucleated Red Blood Cells Perc 0.0 % (0-0.0); Platelet Count Result 181 K/mm3 (150-420); Red Blood Count 4.24 M/mm3 (4.20-5.40); White Blood Count 8.1 K/mm3 (4.8-10.8)
[2025-02-22 10:20] LABS: Alanine Aminotransferase 96 U/L (6-35); Albumin Level 3.9 g/dL (3.5-5.1); Alkaline Phosphatase 109 U/L (38-126); Anion Gap 10 mmol/L (4-12); Aspartate Amino Transferase 73 U/L (14-36); Bilirubin,Total 0.8 mg/dL (0.2-1.3); Blood Urea Nitrogen 28 mg/dL (7-17); Calcium 9.1 mg/dL (8.4-10.2); Carbon Dioxide 26 mmol/L (22-30); Chloride 104 mmol/L (98-107); Estimated CRCL calculation 23 ml/min; Estimated Glomerular Filt Rate 38; Glucose 86 mg/dL (65-110); Osmolality Calculated 294 mOsm/kg (285-295); Potassium 4.1 mmol/L (3.4-5.0); Sodium 140 mmol/L (137-145); Total Protein 6.2 g/dL (6.3-8.2)
[2025-02-22 10:22] LABS: INR 1.0; Prothrombin Time 10.9 Seconds (9.50-12.1)
[2025-02-22 10:31] LABS: Troponin I < 0.012 ng/mL (0.000-0.034)
[2025-02-22 10:45] LABS: Add Urine Microscopic? YES; Appearance Urine Clear (Clear); Glucose Urine UA Negative (Negative); Leukocyte Esterase Ur 3+ LEU/UL (Negative); Nitrate Urine Positive (Negative); Specific Grav Ur 1.010 (1.010-1.020)
--- OUTSIDE RECORDS SUMMARY | 2025-02-22 10:52 | XMS_ITS | Clinical Summary ---
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
--- OUTSIDE RECORDS SUMMARY | 2025-02-22 10:52 | XMS_ITS | Encounter Summary ---
Author Organization [facility] Address 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
--- OUTSIDE RECORDS SUMMARY | 2025-02-22 10:52 | XMS_ITS | Encounter Summary ---
Author Organization [facility] Address 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
--- OUTSIDE RECORDS SUMMARY | 2025-02-22 10:52 | XMS_ITS | Encounter Summary ---
Author Organization [facility] Address 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
--- OUTSIDE RECORDS SUMMARY | 2025-02-22 10:52 | XMS_ITS | Encounter Summary ---
Author Organization [facility] Address 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
--- OUTSIDE RECORDS SUMMARY | 2025-02-22 10:52 | XMS_ITS | Patient Health Record ---
Author Organization [facility] Address [address] [place] [address] Support Name Relationship Address Phone SHAINA FLOREZ Emergency Contact Unknown VIVIANE CADENA Guarantor Unknown Reason For Referral [...] Oral 12/11/2021 Active Furosemide *Pick strength-form from [employer] for eRX* 12/11/2021 Active Restasis 0.05 % [...] Aerosol Powder Breath Activated Inhalation *Reorder from [employer] for eRx and Interaction Alerts* 12/11/2021 Active [...] Date Medicare-I l Medicare [address] [place] [address] [id number] VIVIANE CADENA Self - patient is the insured Bc-[employer] Ppo [address] [place] [address] [id number] VIVIANE CADENA Self - patient is the insured Medical (General) History Surgical History Surgery Date(Month/Year) Removal of gallbladder (70763)
--- OUTSIDE RECORDS SUMMARY | 2025-02-22 10:52 | XMS_ITS | Clinical Summary ---
Author Organization [facility] [place] Address [address] [place] [address] Care Team Providers Care Capacity Planner Name Role Phone Evangelista Carlson MD Primary Care Provide r Berny Vazquez MD Unavailable [phone] Allergies Active Allergy Reactions Criticality Noted Date [...] parkinsonism. Assessment & Plan (03/31/2022 11:14 AM BLENDER LABORER): She had stage 3 parkinsonism characterized by [...] depression. Assessment & Plan (01/14/2021 12:22 PM BLENDER LABORER): She had stage 3 parkinsonism characterized by [...] reevaluate her in 6 months with our Photovoltaic Power Systems Engineer and repeat a video at that time. [...] on file Legal Sex Female 1:49 AM BLENDER LABORER Gender Identity Female 07/15/2021 8:28 PM CDT [...] or Tdap) 01/06/2027 01/06/2017 Insurance MEDICARE MEDICARE [facility] MEDICARE [facility] Care Teams Capacity Planner Relationship Specialty Start Date End Date Evangelista Carlson MD [address] [place] [address] PCP - General Emergency Medicine 07/26/20 Berny Vazquez MD COUNTRY CLUB EXECUT[place] [address] Referring Physician Allergy and Immunology 01/11/21
--- OUTSIDE RECORDS SUMMARY | 2025-02-22 10:52 | XMS_ITS | Clinical Summary ---
Author Organization [facility] Address [address] [place] [address] Care Team Providers Care Sales Administration Specialist Name Role Phone Unavailable Primary Care [...]
[2025-02-22] MEDS: cefTRIAXone 1 GM VIAL IM (11:07)
[2025-02-22 11:31] LABS: Thyroid Stimulating Hormone 2.910 uIU/mL (0.465-4.680)
--- OUTSIDE RECORDS SUMMARY | 2025-02-22 11:40 | XMS_ITS | Encounter Summary ---
Author Organization [facility] Address [address] [place] [address] Care Team Providers Care Layout Artist Name Role Phone Unavailable Primary Care Provider [...] on file Legal Sex Female 4:46 AM CERTIFIED CAREGIVER Gender Identity Not on file Sexual Orientation Not on file documented as of this encounter Plan of Treatment Not on file documented as of this encounter Visit Diagnoses Not on filedocumented in this encounter
--- OUTSIDE RECORDS SUMMARY | 2025-02-22 11:40 | XMS_ITS | Clinical Summary ---
Author Organization [facility] Address [address] Attn: Epic Prelude ADT [place] [address] Care Team Providers Care Materials Planner Name Role Phone Unavailable Primary Care Provider Unavailabl e Social History Tobacco Use Types Packs/Day Years Used Date Smoking Tobacco: Never Assessed Comments Unknown Sex and Gender Information Value Date Recorded Sex Assigned at Not on file Legal Sex Female 4:46 AM SPIRAL RUNNER Gender Identity Not on file Sexual Orientation [...]
--- OUTSIDE RECORDS SUMMARY | 2025-02-22 11:40 | XMS_ITS | Encounter Summary ---
Author Organization [facility] Address [address] [place] [address] Care Team Providers Care Ceiling Insulation Blower Name Role Phone Unavailable Primary Care Provider [...] on file Legal Sex Female 4:46 AM RETURN TO VENDOR Gender Identity Not on file Sexual Orientation Not on file documented as of this encounter Plan of Treatment Not on file documented as of this encounter Visit Diagnoses Not on filedocumented in this encounter
--- OUTSIDE RECORDS SUMMARY | 2025-02-22 11:40 | XMS_ITS | Encounter Summary ---
Author Organization [facility] Address [address] [place] [address] Care Team Providers Care Fiber Optics Engineer Name Role Phone Unavailable Primary Care [...] on file Legal Sex Female 4:46 AM SOUND CUTTER Gender Identity Not on file Sexual Orientation Not on file documented as of this encounter Plan of Treatment Not on file documented as of this encounter Visit Diagnoses Not on filedocumented in this encounter
--- OUTSIDE RECORDS SUMMARY | 2025-02-22 11:40 | XMS_ITS | Encounter Summary ---
Author Organization [facility] Address 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
--- OUTSIDE RECORDS SUMMARY | 2025-02-22 11:40 | XMS_ITS | Clinical Summary ---
Author Organization [facility] Address [address] [place] [address] Care Team Providers Care Cad Drafter Name Role Phone Unavailable Primary Care Provider [...]
--- OUTSIDE RECORDS SUMMARY | 2025-02-22 11:40 | XMS_ITS | Clinical Summary ---
Author Organization [facility] [place] Address [address] [place] [address] Care Team Providers Care Assault Amphibious Vehicle Crewman Name Role Phone Evangelista Carlson MD Primary Care Provide r Berny Vazquez MD Unavailable [phone] Allergies Active Allergy Reactions Criticality Noted Date [...] parkinsonism. Assessment & Plan (03/31/2022 11:14 AM RN CARDIAC): She had stage 3 parkinsonism characterized by [...] depression. Assessment & Plan (01/14/2021 12:22 PM RN CARDIAC): She had stage 3 parkinsonism characterized by [...] reevaluate her in 6 months with our Billet Worker and repeat a video at that time. [...] on file Legal Sex Female 1:49 AM RN CARDIAC Gender Identity Female 07/15/2021 8:28 PM CDT [...] or Tdap) 01/06/2027 01/06/2017 Insurance MEDICARE MEDICARE [facility] MEDICARE [facility] Care Teams Assault Amphibious Vehicle Crewman Relationship Specialty Start Date End Date Evangelista Carlson MD [address] [address] PCP - General Emergency Medicine 07/26/20 Berny Vazquez MD COUNTRY CLUB [place] [address] Referring Physician Allergy and Immunology 01/11/21
--- NOTE | 2025-02-24 14:30 | PC.NURSE ---
urine, preliminary, gram negative bacilli, started on cipro 500mg bid. awaiting final.
--- NOTE | 2025-02-25 16:47 | PC.NURSE ---
FINAL URINE CULTURE REPORT; KLEBSIELLA PNEUMONIAE, PATIENT DISCHARGED ON CIPRO, CULTURE RESISTANT, NEW PRESCRIPTION FOR AUGMENTIN 875MG, TAKE 1 TABLET TWICE DAILY X 7 DAYS, #14, 7 DAYS, 0 REFILL CALLED TO [facility] IN [place] PER GONSALO FLOREZ. SHE WILL GET PRESCRIPTION TO PATIENT.
== END 2025-02-22 11:14 | disposition home or self-care (01) ==
PROVIDERS: Emergency Provider Emergency Medicine; PCP Emergency Medicine
DX: N39.0 Urinary tract infection, site not specified (principal); R53.1 Weakness; R42 Dizziness and giddiness; I95.1 Orthostatic hypotension; I10 Essential (primary) hypertension; Z87.891 Personal history of nicotine dependence
CPT/HCPCS: 36415; 70450; 71045; 80053; 81001; 84443; 84484; 85025; 85610; 87086; 87186; 93005; 96372; 99284; J0696